=== PATIENT | female | born 2005 | race Caucasian/White ===

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

== ENCOUNTER 2024-01-16 14:57 | Outpatient (RCR) | payer OTHER, MEDICAID, SELFPAY ==
[2023-12-06 17:10] VITALS: BP 119/63; PULSE 107
[2023-12-21 16:32] VITALS: BP 118/70; PULSE 100
[2023-12-27 16:58] VITALS: BP 122/66; PULSE 107
[2024-01-03 10:38] VITALS: BP 117/70
[2024-01-10 16:45] VITALS: BP 121/72; PULSE 99
[2024-01-16 15:28] VITALS: BP 125/76; PULSE 109
== END 2024-03-04 08:20 | disposition home or self-care (01) ==
LOC: ANHOBOP 14:57
PROVIDERS: PCP Physician Assistant; Visit Provider Obstetrics & Gynecology
DX: O24.419 Gestational diabetes mellitus in pregnancy, unspecified control (principal); Z3A.32 32 weeks gestation of pregnancy; Z3A.34 34 weeks gestation of pregnancy; Z3A.35 35 weeks gestation of pregnancy; Z3A.36 36 weeks gestation of pregnancy; Z3A.37 37 weeks gestation of pregnancy; Z3A.38 38 weeks gestation of pregnancy
CPT/HCPCS: 59025

== ENCOUNTER 2024-01-18 16:11 | Outpatient (CLI) | payer OTHER, SELFPAY ==
[2024-01-18 16:41] LABS: Hematocrit 32.2 % (37.0-47.0); Hemoglobin 9.5 g/dL (12.0-15.0); Mean Corpuscular HGB Conc 29.5 g/dl (32-36); Mean Corpuscular Hemoglobin 21.2 pg (26-34); Mean Corpuscular Volume 71.9 fl (80-100); Mean Platelet Volume 10.8 fl (7.4-10.4); Platelet Count Result 212 k/mm3 (150-375); Red Blood Count 4.48 M/mm3 (4.2-5.4); Red Cell Distribution Width 17.8 % (11.5-14.5); White Blood Count 9.1 K/mm3 (4.5-10.0)
[2024-01-18 21:02] LABS: Rapid Plasma Reagin Non-Reactive (NonReactive)
== END 2024-01-18 16:12 | disposition home or self-care (01) ==
LOC: ANHLAB 16:13
PROVIDERS: PCP Physician Assistant; Visit Provider Obstetrics & Gynecology
DX: Z01.818 Encounter for other preprocedural examination (principal)
CPT/HCPCS: 36415; 85027; 86592; 86850; 86900; 86901

== ENCOUNTER 2024-01-19 10:02 | Inpatient (IN) | payer OTHER, MEDICAID, SELFPAY ==
[2024-01-19] VITALS (31 sets, daily range): BP systolic 82–125; BP diastolic 50–87; PULSE 76–129; RESP 16–20; TEMP 36.2–36.9; O2SAT 95–100; BMI 39.8
[2024-01-19] MEDS: ACETAMINOPHEN 500 MG TABLET 1000 MG PO (10:45)
--- NOTE | 2024-01-19 10:49 | P.PNAN_ITS ---
Anes - Initial Pre Proc Eval Procedure: Operation Date: 01/19/24 12:00 Proposed Procedures p Primary Section - Luis Cazares MD Date/Time: 01/19/24 10:49 Surgeon: Luis Cazares MD Pre Op Diagnosis: C Section Patient Data Age: 18 Gender: F Height: 1.6 m Weight: 102 kg Last Vital Signs Pulse 100 01/19/24 10:44 BP 121/72 01/19/24 10:44 Allergies Allergy/AdvReac Type Severity Reaction Status Date / Time No Known Allergies Allergy Verified 02/18/23 07:09 Home Medications Medication Instructions Recorded Confirmed Type famotidine 20 mg tablet 20 mg PO DAILY 10/18/23 12/13/23 History vit no.95-ferrous 1 tablet PO DAILY 10/18/23 12/13/23 History fumarate 28 mg-folic acid 800 mcg tablet () escitalopram oxalate 10 mg tablet 10 mg PO DAILY 12/06/23 12/13/23 History (Lexapro) Patient hx anesthesia problems: none Family hx anesthesia problems: none Results Review: All pre-operative results and documents have been reviewed as part of the pre- operative evaluation. [facility] Past Medical History Medical History (Updated 01/19/24 @ 10:59 by Mark Dorantes DO) GDM (gestational diabetes mellitus) Surgical History Surgical History No pertinent past surgical history Family History Family History (Updated 01/15/24 @ 14:43 by Boby Barragan RN) Mother Hypertension Father Type 2 diabetes mellitus Grandparent Type 2 diabetes mellitus Social History Social History Smoking status: Never smoker Substance use: former Spiritual care concerns: No Anes - Eval Final PreProcedure Day of Procedure 01/19/24 10:49 Patient weight: obese Heart: regular rate and rhythm Lungs: clear to auscultation and normal air movement Airway: Mallampati scale class II Neurological: alert and oriented Last oral intake: >/= 8 hours ASA classification: III Emergent: no Anesthetic plan: proceed Anesthesia type and monitoring: regional spinal and standard monitoring Results Review: All pre-operative results and documents have been reviewed as part of the pre- operative evaluation. Informed Consent: The patient's anesthetic plan and its attendant risks and benefits were discussed with the patient/family/POA. Questions were solicited and answers provided to the satisfaction of the patient/family/POA.
[2024-01-19] MEDS: LACTATED RINGERS 1,000 ML 125 ML IV CONT ×2 (10:57→11:53)
[2024-01-19 11:16] LABS: Glucose Point of Care 85 mg/dl (65-105)
--- NOTE | 2024-01-19 11:42 | PM.IMHP ---
H&P: HPI History of Present Illness Date/Time: 01/19/24 11:42 Chief Complaint: Here for c section. Narrative: 18 y/o at 39 weeks with A2DM, EFW >4500 grams, here for elective . Review of Systems Review of Systems: All systems reviewed & are unremarkable except as noted in HPI and below PMFSH Past Medical History Medical History (Updated 01/19/24 @ 11:44 by Luis Cazares MD) GDM (gestational diabetes mellitus) Surgical History Surgical History No pertinent past surgical history Family History Family History Mother Hypertension Father Type 2 diabetes mellitus Grandparent Type 2 diabetes mellitus Social History Social History Smoking status: Never smoker Second hand tobacco smoke exposure: No Substance use: former Do You Feel Safe in your Home?: Yes Lack of Transportation: No Lack of Food: Never True Current Housing: I Have Housing Concerned About Future Housing: No Difficulty Paying Gas/Electric Bills: No Difficulty Paying for Meds: No Currently Unemployed: No Education: High School Diploma/GED Difficulty w/ Childcare or Family Care: No Spiritual care concerns: No Meds Home Medications and Allergies Home Medications Medication Instructions Recorded Confirmed Type famotidine 20 mg tablet 20 mg PO DAILY 10/18/23 12/13/23 History vit no.95-ferrous 1 tablet PO DAILY 10/18/23 12/13/23 History fumarate 28 mg-folic acid 800 mcg tablet () escitalopram oxalate 10 mg tablet 10 mg PO DAILY 12/06/23 12/13/23 History (Lexapro) Allergies Allergy/AdvReac Type Severity Reaction Status Date / Time No Known Allergies Allergy Verified 02/18/23 07:09 Vital Signs Vital Signs - 24 hr 01/19/24 10:44 01/19/24 11:02 Pulse Rate 100 Blood Pressure 121/72 Oxygen Delivery Room Air Exam Const: Orientation/consciousness: patient oriented x3 Other: Well-developed, well-nourished female in no acute distress. Neck: Thyroid: thyroid normal Lymphatic: no lymphadenopathy noted (in neck, axilla or inguinal nodes) Resp: Effort & Inspection: normal respiratory effort Auscultation: clear to auscultation bilaterally Cardio: Rate: regular rate Rhythm: regular rhythm Heart sounds: S1 normal heart sound present and S2 normal heart sound present GI: Other: ABD: Soft, nontender, nondistended, gravid. FH 42 cm. FHR 150 bpm. No guarding or rebound tenderness. No hepatosplenomegaly. : General: Yes no CVA tenderness Other: Cervix closed, thick Back/Spine/Pelvis: Back: no CVA tenderness Skin: General skin exam: normal color and no rashes or lesions noted Neuro: General: patient oriented x3 Extrem: Other: Extremities: nontender with no edema Psych: Mental Status: mental status grossly normal Affect: normal affect Assessment and Plan Assessment and plan (1) Term : Code(s): Z34.90 - Encounter for supervision of normal , unspecified, unspecified trimester Status: Acute Assessment and Plan: A: IUP at 39 weeks with A2DM and suspected macrosomia. P: Offered primary due to increased risk of injury. She understands risks of surgery to include risks of anesthesia, risks of pain, infection, bleeding, blood products, thromboembolic phenomena and damage to adjacent structures such as bowel, bladder, ureters, blood vessels and nerves. She understands all these risks and elects to proceed with surgery. (2) GDM (gestational diabetes mellitus): Code(s): O24.419 - Gestational diabetes mellitus in , unspecified control Status: Acute (3) Macrosomia of fetus affecting management of mother: Code(s): O36.60X0 - Maternal care for excessive growth, unspecified t
--- NOTE | 2024-01-19 11:52 | WPDHPUPDATE1 ---
History and Physical Update Update Date/Time: 01/19/24 11:52 History and Physical has been reviewed, including an updated exam of the patient. There are NO changes in the patient's condition. Risks, benefits, and alternatives have been discussed and questions answered. Patient agrees to proceed with procedure.
[2024-01-19] MEDS: ONDANSETRON INJ 4 MG/2 ML VIAL IV PUSH (11:53)
[2024-01-19] MEDS: ceFAZolin 2 GM/D5W 50 ML 2 GM/50 ML BAG IVPB (12:05)
--- NOTE | 2024-01-19 13:11 | W.PM.OBCSD ---
OB - Delivery Note Procedure Delivery date: 01/19/24 Pre-op diagnosis: Diabetes Mellitus and Macrosomia Post-op Diagnosis: Same Induction method: None Delivery monitor: External FHT and External Uterine Procedure Performed: Primary Surgeon: Luis Cazares MD Anesthesia type: Spinal Description of Procedure/Findings: Findings: Normal-appearing uterus, tubes and ovaries. Techniques: The patient was taken to the operating room where she was prepared and draped in the usual sterile fashion in dorsal supine position with a leftward tilt. She received cefazolin preoperatively. Spinal anesthesia was found to be adequate. A Pfannenstiel skin incision was made and carried through to the underlying layer of the fascia. The fascia was incised in the midline and the incision was extended laterally. The fascia was dissected free of the underlying rectus muscles. The rectus muscles were in the midline. The peritoneum was identified, tented up and entered sharply. The peritoneal incision was extended superiorly and inferiorly with good visualization of the bladder. The bladder blade was placed. The vesicouterine peritoneum was identified, tented up and entered sharply. The incision was extended laterally and the bladder flap was developed. The bladder blade was replaced. The uterus was then incised sharply in a transverse fashion along the lower uterine segment. The incision was extended laterally. The infant's head was delivered atraumatically to the sterile field, followed by the body. The nose and mouth were bulb suctioned. After a delay, the cord was clamped and cut. The was handed off the field. Cord blood was collected. The placenta was removed manually and was passed off the field. The uterus was exteriorized and cleared of all clots and debris. The uterine incision was reapproximated using 0 Monocryl in a running, locked fashion. A second, imbricating layer of the same suture was run. Excellent hemostasis resulted as did excellent reapproximation of the normal anatomy. The uterus was returned the abdomen. The pelvis was irrigated copiously with warmed normal saline. Rigorous hemostasis was assured. The fascial layer was reapproximated using 0 Vicryl in a running fashion. The skin was closed with a running, subcuticular stitch of 4 0 Vicryl. Dermaflex was applied externally. Sponge, lap, needle and instrument counts were correct. The patient was taken to the recovery room in stable condition. The infant went to the nursery in stable condition. I was present and scrubbed the entire procedure. Specimen: Yes (placenta, cord blood) Estimated Blood Loss: 1,030 Drains: Yes (hood) Packing: No Pathology: Yes (placenta) Complications: None Condition: Stable Disposition: PACU Baby Date of : 01/19/24 Time of : 12:31 Weeks of gestation at delivery: 39 gender: Male Weight (pounds): 10 Weight (ounces): 1 presentation: vertex Placenta delivery description: Manual Removal and Normal Configuration Cord Vessel Description: 3 Vessels and Delayed Cord Clamping score one minute: 8 score five minutes: 9
--- NOTE | 2024-01-19 13:14 | PM.OBDSVD ---
DS: Admitting Diagnosis Discharge Date 01/19/24 Admitting Diagnosis IUP at 39 weeks Suspected macrosomia DS: Discharge Diagnosis Discharge Diagnosis (1) delivery delivered: Code(s): O82 - Encounter for delivery without indication Status: Acute OB - DS: Summary OB Procedures : None OB Procedures Intrapartum: OB Procedures: : None Peripartum Data Procedures: Procedures Operation Date: 01/19/24 12:00 <No data on this case meets the specified criteria> Time Spent with Patient Time attestation: Total time spent providing and/or coordinating discharge services: DS: Data Data Completed and Pending Labs on day of discharge: Labs from last 24 hours 01/19/24 11:08 POC Capillary Glucose 85 Discharge Plan Discharge Attending physician on discharge: Luis Cazares Consulting providers: Mark Dorantes; Mariola Way Discharging Clinician: Monisha Umanzor Anticipated Discharge Date/Time: 01/21/24 08:41 Patient Disposition: Home, Self-Care Activity: may shower, may drive after 2 weeks and pelvic rest Diet: regular Wound Care Instructions: incision open to air Discharge Instructions: Education: Mom and Baby Guide Given to: Mother Follow-Up: Call your delivering provider's office for an appointment to be seen in: call for an appointment Mom and baby should come to the [facility] for the follow-up appointment. Appointment Date/Time: January 23, 2024 at 11:00 am What to expect at your follow-up visit: Physical Assessment Call [phone] if you are unable to keep your appointment time. BREAST CARE: * Wear a snug supportive bra. * For engorgement discomfort: Breast Feeding: * Apply warm moist washcloths * Express milk as needed to relieve engorgement * Wear loose clothing Bottle Feeding: * May apply ice packs * For sore nipples: * Identify correct latch-on * Apply warm moist washcloths before and after nursing * Air dry nipples after nursing * May apply Lansinoh cream to nipples ABDOMINAL INCISION: (if applicable) * Allow incision to air dry * Do NOT use lotions for powders on your incision * When showering, allow soap and water to run over the incision, but do not wash incision EPISIOTOMY/PERINEAL CARE: * Until bleeding stops, use your nathan bottle after urinating * Change your pad frequently throughout the day * You may take sitz baths several times a day (fill your bathtub with warm water and soak for 20 minutes.) Do NOT bathe in the water * No tub baths until seen by your physician - You may shower ACTIVITY: * Rest as much as possible. * Do not exercise or lift anything heavier than your baby (such as laundry or other children.) * Avoid stairs or driving as much as possible. * Do not put anything into the vagina. No douching, tampons, or sexual activity until seen by physician. NOTIFY PHYSICIAN IF YOU HAVE ANY QUESTIONS OR IF ANY OF THE FOLLOWING SYMPTOMS OCCUR: * If your episiotomy or incision becomes red, swollen, or more painful than what you have experienced in the hospital. * If your vaginal bleeding becomes foul smelling. * If your vaginal bleeding becomes more heavy than a period or if your bleeding changes from pink to bright red. However, you may pass an occasional walnut-sized clot once or twice for the first week . * If you experience a sharp, shooting pain in you calves. * If you discover a hard, reddened area on your breast or if you experience flu-like symptoms. DIET: * Eat regular, well-balanced meals. * Drink plenty of fluids daily. If , drink to thirst. Patient Instructions: Antibiotic Form Stand Alone Forms: General Discharge Information Follow-up/Referrals: Luis Cazares MD [Physician] - Call for Appointment Discharge Me
[2024-01-19] MEDS: OXYTOCIN 30 UNITS/NS 500 ML 30 UNITS/500 ML BAG 125 UNITS IV CONT (15:36)
--- NOTE | 2024-01-19 15:53 | PC.NURSE ---
Patient transferred to post room #280 per stretcher from labor and delivery. Support person present. Oriented to unit, room, information board, rooming in, admission packet and security measures. Patient verbalizes understanding.
[2024-01-19] MEDS: SIMETHICONE 80 MG TAB.CHEW PO (16:53)
[2024-01-19] MEDS: DOCUSATE SODIUM 100 MG CAPSULE PO (16:53)
[2024-01-19] MEDS: KETOROLAC 15 MG/ML VIAL (*BKC) IV PUSH ×2 (16:54→23:39)
[2024-01-19] MEDS: diphenhydrAMINE HCl INJ 50 MG/ML VIAL 25 MG IV PUSH (16:54)
--- NOTE | 2024-01-19 17:35 | PC.NURSE ---
1700 Introductions were made, then consulted with patient to assess needs related to . Mother led the conversation with her?plans to feed?her and the?experience so far. Encouraged understanding of the benefits of skin to skin (demonstrating unwrapping infant and placing upright on her chest), stimulating with massage touch, changing positions to encourage wakefulness, how to watch for early feeding cues, responsive feeding, feeding on demand (aiming for 8-12 times in 24 hours, about every 2-3 hours), milk production, building/maintaining a milk supply, duration of feeding, signs of adequate intake/output and how to record on the feeding sheet. Mother works well with her with encouragement and education. Reviewed positioning and ear, shoulder, hip alignment, supporting the breast to facilitate a deep latch, asymmetrical latch (off-center), leading with the chin with a big, open, wide gape and body close to mother. Education given to the mother of how to visualize the suckling (with good rocking jaw motion), swallows (dropping of the lower jaw) and how to listen for drinking at the breast (the ka sound). Reviewed comfort measures of healing with a warm, wet washcloth to rinse breast, then leave open to air-dry, good handwashing when or touching the breast/nipples to prevent infection. Mother voiced understanding of skin to skin, stimulating with massage touch, responsive feedings, hand expressed colostrum, talking to to encourage if it has been 2 -2.5 hours since the start of the last , to call if does not latch, or if there is discomfort with . Resources used for education were facilitated with the visual educational handouts/ tool/mom and baby guide, Inpatient resources provided with business card, feeding sheet, name written on the communication board, and the mom/baby guide. Parents voiced understanding of information, demonstrated learning and will call with next attempt to feed once baby wakes from nap or if there is a request for assistance. Reported to the Primary RN.
[2024-01-19] MEDS: ACETAMINOPHEN 325 MG TABLET 650 MG PO (18:30)
[2024-01-20] MEDS: ACETAMINOPHEN 325 MG TABLET 650 MG PO ×4 (02:43→22:33)
[2024-01-20 04:00] VITALS: BP 98/61; PULSE 99; RESP 18; TEMP 37; O2SAT 100
[2024-01-20 05:19] LABS: Basophils Absolute Auto 0.1 K/mm3 (0.0-0.1); Basophils Percent Auto 0.5 % (0.2-1.2); Eosinophils Percent Auto 0.3 % (0-4.4); Hematocrit 25.8 % (37.0-47.0); Hemoglobin 7.8 g/dL (12.0-15.0); Immature Granulocyte Absolute 0.03 K/mm3 (0.00-0.031); Immature Granulocyte Percent A 0.3 % (0-0.5); Lymphocytes Absolute Auto 2.06 K/mm3 (0.9-3.2); Lymphocytes Percent Auto 19.6 % (18.3-44.2); Mean Corpuscular HGB Conc 30.2 g/dl (32-36); Mean Corpuscular Hemoglobin 21.7 pg (26-34); Mean Corpuscular Volume 71.9 fl (80-100); Mean Platelet Volume 11.8 fl (7.4-10.4); Monocytes Absolute Auto 0.9 K/mm3 (0.1-0.6); Monocytes Percent Auto 8.3 % (2.6-8.5); Neutrophils Absolute Auto 7.5 K/mm3 (1.3-6.7); Platelet Count Result 197 k/mm3 (150-375); Red Blood Count 3.59 M/mm3 (4.2-5.4); Red Cell Distribution Width 17.5 % (11.5-14.5); White Blood Count 10.5 K/mm3 (4.5-10.0)
[2024-01-20 05:38] LABS: Anisocytosis 1+; Hypochromasia 1+; Ovalocytes 2+; Platelet Estimate Adequate (Adequate); Schistocytes None Seen
[2024-01-20] MEDS: KETOROLAC 15 MG/ML VIAL (*BKC) IV PUSH (05:39)
--- NOTE | 2024-01-20 06:51 | P.PNOB_ITS ---
OB - PN: Subj Subjective Date/time seen: 01/20/24 06:51 Patient comments: no complaints and pain well controlled baby status: doing well OB - PN: Obj Data Labs 01/20/24 03:41 Labs: Laboratory Results - last 24 hr 01/19/24 01/20/24 11:08 03:41 WBC 10.5 H RBC 3.59 L Hgb 7.8 L Hct 25.8 L MCV 71.9 L MCH 21.7 L MCHC 30.2 L RDW 17.5 H Plt Count 197 MPV 11.8 H Immature Gran % (Auto) 0.3 Neut % (Auto) 71.0 Lymph % (Auto) 19.6 [place] % (Auto) 8.3 Eos % (Auto) 0.3 Baso % (Auto) 0.5 Lymph # (Auto) 2.06 [place] # (Auto) 0.9 H Eos # (Auto) 0.0 Baso # (Auto) 0.1 Abs Immat Gran (auto) 0.03 Absolute Neuts (auto) 7.5 H Absolute Nucleated RBC 0.000 Nucleated RBC % 0.0 Platelet Estimate Adequate Hypochromasia 1+ Anisocytosis 1+ Ovalocytes 2+ Schistocytes None seen POC Capillary Glucose 85 OB - PN A/P Plan day: 1 Plan: routine care Time Spent With Patient Time: Total time spent is greater than 50% in coordination of care (as documented) at patient's floor/unit and/or counseling patient: Exam Narrative: inc c/d/i : Bimanual exam- vagina & uterus: other (Uterus firm, nt @U)
[2024-01-20] MEDS: POLYSACCHARIDE IRON COMPLEX 150 MG CAPSULE PO ×2 (07:37→16:31)
[2024-01-20] MEDS: SIMETHICONE 80 MG TAB.CHEW PO ×3 (07:37→16:31)
[2024-01-20] MEDS: DOCUSATE SODIUM 100 MG CAPSULE PO ×2 (07:38→16:31)
[2024-01-20] MEDS: ESCITALOPRAM OXALATE 10 MG TABLET PO (07:38)
[2024-01-20] MEDS: MULTIVIT/MIN/PREN/FOL AC/IRON TABLET 1 TAB PO (07:39)
[2024-01-20 07:40] VITALS: BP 121/68; PULSE 93; RESP 16; TEMP 36.9; O2SAT 99
--- NOTE | 2024-01-20 09:46 | WPDANLDPN2 ---
Anes-Prog Note L&D Date/Time: 01/20/24 09:46 Comfortable throughout: section Neuraxial method: spinal Epidural/Spinal procedure site: clean & non-tender Neuro status: Neuro function grossly intact. Cardiovascular status: normal Respiratory status: normal Airway patency: baseline Mental status: baseline Post-Op hydration status: normal Vital Signs: Last Vital Signs Temp 36.9 C 01/20/24 07:40 Pulse 93 01/20/24 07:40 Resp 16 01/20/24 07:40 BP 121/68 01/20/24 07:40 Pulse Ox 99 01/20/24 07:40 O2 Del Method Room Air 01/20/24 07:40 Pain score (VAS): 0 I/O: Intake & Output 01/19/24 01/20/24 01/20/24 23:59 07:59 15:59 Intake Total 250 Balance 250 Post-procedural complaints: none Patient feedback: Patient satisfied with anesthetic care.
--- NOTE | 2024-01-20 09:47 | WPDANLDNPN2 ---
Anes-Prog Note L&D-Neuraxial Date/Time: 01/20/24 09:47 Neuraxial medications: intrathecal PF morphine Opiod-related complaints: none Patient feedback: Patient satisfied with post-operative pain management.
[2024-01-20] MEDS: IBUPROFEN 600 MG TABLET PO ×2 (12:15→18:19)
[2024-01-20 20:00] VITALS: BP 125/61; PULSE 88; RESP 18; TEMP 36.9; O2SAT 99
[2024-01-21] MEDS: IBUPROFEN 600 MG TABLET PO ×2 (00:19→08:12)
[2024-01-21] MEDS: HYDROcodone/acetaminophen (*CRX) 10-325 MG TABLET 1 TAB PO (02:11)
[2024-01-21] MEDS: ACETAMINOPHEN 325 MG TABLET 650 MG PO (04:29)
[2024-01-21 07:44] VITALS: BP 131/83; PULSE 96; RESP 20; TEMP 36.7; O2SAT 99
[2024-01-21] MEDS: MULTIVIT/MIN/PREN/FOL AC/IRON TABLET 1 TAB PO (08:11)
[2024-01-21] MEDS: ESCITALOPRAM OXALATE 10 MG TABLET PO (08:11)
[2024-01-21] MEDS: POLYSACCHARIDE IRON COMPLEX 150 MG CAPSULE PO (08:11)
[2024-01-21] MEDS: DOCUSATE SODIUM 100 MG CAPSULE PO (08:11)
[2024-01-21] MEDS: SIMETHICONE 80 MG TAB.CHEW PO (08:11)
--- NOTE | 2024-01-21 08:40 | PM.OBPNVD ---
OB - PN: Subj Subjective Date/time seen: 01/21/24 08:40 Patient comments: no complaints and pain well controlled baby status: doing well OB - PN: Obj Data Labs 01/20/24 03:41 OB - PN A/P Plan day: 2 Plan: routine care and discharge home Time Spent With Patient Time: Total time spent is greater than 50% in coordination of care (as documented) at patient's floor/unit and/or counseling patient: Exam Narrative: inc c/d/i : Bimanual exam- vagina & uterus: other (Uterus firm, nt @U)
[2024-01-23 11:39] VITALS: BP 123/84; PULSE 100; RESP 18; TEMP 37.1; O2SAT 100
== END 2024-01-21 11:11 | disposition home or self-care (01) | DRG 788 ==
LOC: ANHOB2 01-21 09:35 → ANHLDR 01-23 07:43 → ANHOB2 01-23 07:43
PROVIDERS: Admitting Provider Obstetrics & Gynecology; PCP Physician Assistant; Visit Provider Obstetrics & Gynecology Gynecology
PROC: 10D00Z1 Extraction of Products of Conception, Low, Open Approach (ICD-10-PCS; CPT 59514; principal; 2024-01-19 12:00)
DX: O24.429 Gestational diabetes mellitus in childbirth, unspecified control (principal); Z37.0 Single live birth; Z3A.38 38 weeks gestation of pregnancy; O36.63X0 Maternal care for excessive fetal growth, third trimester, not applicable or unspecified
CPT/HCPCS: 36415; 82948; 85025; 85027; 86592; 86850; 86900; 86901; 88307; A9270; J0690; J1200; J1885; J2274; J2371; J2405; J2590; J7120

== ENCOUNTER 2024-02-18 19:43 | Emergency (ER) | payer OTHER, SELFPAY ==
--- NOTE | ~2024-02-18 | CT_ITS ---
EXAMINATION: CT abdomen pelvis w con DATE: 02/18/2024 21:37 INDICATION: Upper abdominal pain. TECHNIQUE: Computed tomography (CT) of the abdomen and pelvis was performed with 100 mL Omnipaque 350 intravenous contrast. Automated exposure control and iterative reconstruction technique were employe d. The dose-length product was 780.62 mGy-cm. COMPARISON: CT abdomen and pelvis 02/18/2023 FINDINGS: The visualized portions of the lung bases demonstrate mild atelectasis. No pleural effusion . The heart size is normal. No pericardial effusion. The liver is normal. There is a gallstone in the gallbladder, which is normal in size. The spleen, pancreas, adrenal glands, and kidneys are normal. There are no dilated loops of bowel. The appendix is normal. There are no pathologically enlarged lym ph nodes. There is no free intraperitoneal fluid. There is mild thoracic and lumbar spondylosis. IMPRESSION: 1. Cholelithiasis. No evidence of acute cholecystitis. Reviewed, dictated and finalized at location E.
[2024-02-18 19:40] VITALS: BP 123/87; PULSE 96; RESP 22; TEMP 36.3; O2SAT 100
--- NOTE | 2024-02-18 19:51 | ED.ABDPAIN ---
HPI - Abdominal Pain General Chief Complaint: Abdominal Pain Stated Complaint: abd pain Time Seen by Provider: 02/18/24 19:44 History of Present Illness HPI narrative: Patient is a 18-year-old female who presents to the emergency department this evening complaining of mid epigastric/upper abdominal pain. Patient states that she has had similar pain in the past and believes that it is her gallbladder. Has never been diagnosed with gallstones or cholecystitis. Patient is 1 month , had her baby via . Admits to nausea and vomiting.. Patient admits that the pain does radiate to her back, EMS did administer 100 mcg intranasal fentanyl with some improvement of her pain. Patient denies any chest pain or shortness of breath, any fevers or chills at home, and denies any additional symptoms or concerns at this time. Related Data Home Medications Medication Instructions Recorded Confirmed famotidine 20 mg tablet 20 mg PO DAILY 10/18/23 12/13/23 vit no.95-ferrous 1 tablet PO DAILY 10/18/23 12/13/23 fumarate 28 mg-folic acid 800 mcg tablet () escitalopram oxalate 10 mg tablet 10 mg PO DAILY 12/06/23 12/13/23 (Lexapro) Allergies Allergy/AdvReac Type Severity Reaction Status Date / Time No Known Allergies Allergy Verified 02/18/24 20:00 Review of Systems Review of Systems: All systems are reviewed and are negative unless stated otherwise in the HPI. [facility] Past Medical History Medical History GDM (gestational diabetes mellitus) Surgical History Surgical History No pertinent past surgical history Family History Family History Mother Hypertension Father Type 2 diabetes mellitus Grandparent Type 2 diabetes mellitus Social History Social History Smoking status: Never smoker Second hand tobacco smoke exposure: No Substance use: former Do You Feel Safe in your Home?: Yes Lack of Transportation: No Lack of Food: Never True Current Housing: I Have Housing Concerned About Future Housing: No Difficulty Paying Gas/Electric Bills: No Difficulty Paying for Meds: No Currently Unemployed: No Education: High School Diploma/GED Difficulty w/ Childcare or Family Care: No Spiritual care concerns: No Exam Narrative: General: Alert, awake, afebrile, in no acute distress. HEENT: PERRL, no rhinorrhea, no post nasal drip, oropharynx clear. Cardiovascular: Regular rate and rhythm, no murmurs, rubs or gallops, no peripheral edema. Respiratory: Clear to auscultation bilaterally, no tachypnea, no wheezing, no rhonchi, no rubs, no respiratory distress. Abdomen: Soft, nontender, nondistended, no rebound, no guarding, no peritoneal signs. Musculoskeletal: No joint swelling or deformity, normal muscle tone. Skin: No rashes or petechia, no signs of infection. Neurological: Alert and oriented to person, place, and time. Follows all commands. No focal deficits, speech is clear and fluent. Course Vital Signs Vital signs: Vital Signs Temperature 97.4 F L 02/18/24 19:40 Pulse Rate 96 02/18/24 19:40 Respiratory Rate 22 H 02/18/24 19:40 Blood Pressure 123/87 02/18/24 19:40 Pulse Oximetry 100 02/18/24 19:40 Oxygen Delivery Room Air 02/18/24 19:40 Temperature 97.4 F L 02/18/24 19:40 Pulse Rate 106 H 02/18/24 20:16 Respiratory Rate 19 02/18/24 20:16 Blood Pressure 123/60 02/18/24 20:16 Pulse Oximetry 97 02/18/24 20:16 Oxygen Delivery Room Air 02/18/24 19:40 MDM - Abdominal Pain MDM Narrative Medical decision making narrative: The patient was evaluated by myself in the emergency department. History is obtained from patient who is an independent historian and physical exam was performed. External medi
[2024-02-18 20:01] VITALS: BP 133/78; PULSE 98; RESP 14; O2SAT 100
[2024-02-18 20:16] VITALS: BP 123/60; PULSE 106; RESP 19; O2SAT 97
[2024-02-18 20:30] LABS: Basophils Percent Auto 0.4 % (0.2-1.2); Eosinophils Absolute Auto 0.1 K/mm3 (0-0.3); Eosinophils Percent Auto 1.3 % (0-4.4); Hematocrit 34.2 % (37.0-47.0); Hemoglobin 10.1 g/dL (12.0-15.0); Immature Granulocyte Absolute 0.03 K/mm3 (0.00-0.031); Immature Granulocyte Percent A 0.3 % (0-0.5); Lymphocytes Absolute Auto 2.78 K/mm3 (0.9-3.2); Lymphocytes Percent Auto 30.7 % (18.3-44.2); Mean Corpuscular HGB Conc 29.5 g/dl (32-36); Mean Corpuscular Hemoglobin 20.7 pg (26-34); Mean Corpuscular Volume 70.2 fl (80-100); Mean Platelet Volume 10.6 fl (7.4-10.4); Monocytes Absolute Auto 0.6 K/mm3 (0.1-0.6); Monocytes Percent Auto 6.1 % (2.6-8.5); Neutrophils Absolute Auto 5.5 K/mm3 (1.3-6.7); Neutrophils Percent Auto 61.2 % (45.5-73.1); Platelet Count Result 336 k/mm3 (150-375); Red Blood Count 4.87 M/mm3 (4.2-5.4); Red Cell Distribution Width 18.6 % (11.5-14.5); White Blood Count 9.1 K/mm3 (4.5-10.0)
[2024-02-18 20:42] LABS: Hypochromasia 1+; Platelet Estimate Adequate (Adequate)
[2024-02-18 20:43] LABS: Anisocytosis 1+; Microcytosis 1+ (NORMAL); Ovalocytes 1+; Schistocytes None Seen
[2024-02-18 20:45] LABS: Alanine Aminotransferase 25 U/L (6-35); Albumin Level 4.5 g/dL (3.7-5.6); Alkaline Phosphatase 122 U/L (45-116); Anion Gap 14 mmol/L (4-12); Aspartate Amino Transferase 68 U/L (14-36); Bilirubin,Total 0.5 mg/dL (0.2-1.3); Blood Urea Nitrogen 14 mg/dL (8-21); Calcium 9.1 mg/dL (8.9-10.7); Carbon Dioxide 19 mmol/L (22-30); Chloride 108 mmol/L (98-107); Estimated CRCL calculation 151 ml/min; Estimated Glomerular Filt Rate > 60; Glucose 102 mg/dL (65-110); Lactic Acid Reflex 2.6 mmol/L (0.7-2.0); Lipase 196 U/L (23-300); Potassium 3.8 mmol/L (3.4-5.0); Sodium 141 mmol/L (134-143)
[2024-02-18 20:50] LABS: SPREG INTERNAL CONTROL Positive; Serum Qual hCG Negative
[2024-02-18 21:01] VITALS: BP 127/77; PULSE 97; RESP 36; O2SAT 97
[2024-02-18] MEDS: SODIUM CHLORIDE 0.9% IV 1,000 ML 999 ML IV CONT (21:58)
[2024-02-18 22:30] VITALS: BP 121/64; PULSE 94; RESP 21; O2SAT 98
[2024-02-18] MEDS: ONDANSETRON INJ 4 MG/2 ML VIAL IV PUSH (22:41)
--- NOTE | 2024-02-18 22:51 | PC.NURSE ---
Discussed with pt to pump n dump x 48 hours d/t CT contrast and IN fentanyl. Pt agreeable with plan.
[2024-02-18 23:01] VITALS: BP 125/84; PULSE 92; RESP 16; O2SAT 99
[2024-02-18 23:28] LABS: Reflex Lactic Acid Yes or No Add Lactic
--- NOTE | 2024-02-23 20:34 | PC.NURSE ---
Addendum entered by Amanda Mccabe RN 02/26/24 12:14: Discharge time was at 2312 for an end time. Original Note: LATE ENTRY This note is being entered to document information to the patient's record. The following information was omitted on [02/18/24], by [PHAM Dsouza]. Normal saline bolus at rate of 999mls/ hour were discontinued upon discharged.
== END 2024-02-18 23:13 | disposition home or self-care (01) ==
PROVIDERS: Emergency Provider Emergency Medicine; PCP Physician Assistant
DX: K80.20 Calculus of gallbladder without cholecystitis without obstruction (principal)
CPT/HCPCS: 36415; 74177; 80053; 82248; 83605; 83690; 84703; 85025; 96361; 96374; 99284; J2405; J7030; Q9967

== ENCOUNTER 2024-09-15 16:48 | Emergency (ER) | payer OTHER, SELFPAY ==
[2024-09-15 16:48] VITALS: BP 128/83; PULSE 88; RESP 16; TEMP 36.4; O2SAT 100
--- NOTE | 2024-09-15 16:57 | ED.FEMALEGU ---
HPI - Female Genitourinary General Chief complaint: Vaginal Bleeding Stated complaint: vaginal bleeding Time Seen by Provider: 09/15/24 16:56 Source: patient Mode of arrival: ambulatory Limitations: no limitations History of Present Illness HPI Narrative: 19 years old white female drove herself to the emergency room complaining of heavy menstrual. Over the last 3 days. Patient is post 8 months ago, patient is 3, para 1, 2, history of heavy menstrual cycles for years. Had history of anemia, she denies any pain, lightheadedness, dizziness, headache, fever, chills. patient is telling me that last menstrual period was 1 months ago and was considered the 1st minutes for cycle after having the BP 8 months ago. And 3 days ago started having another. Which consider the 2nd menstrual cycle after having the baby 8 months ago Related Data Home Medications ?Medication ?Instructions ?Recorded ?Confirmed ?Last Taken ?Type No Home Medications 09/15/24 09/15/24 Unknown History Allergies Allergy/AdvReac Type Severity Reaction Status Date / Time No Known Allergies Allergy Verified 09/15/24 16:55 Review of Systems Review of Systems: All systems reviewed & are unremarkable except as noted in HPI and below PMFSH Past Medical History Medical History GDM (gestational diabetes mellitus) Surgical History Surgical History No pertinent past surgical history Family History Family History Mother Hypertension Father Type 2 diabetes mellitus Grandparent Type 2 diabetes mellitus Social History Social History Smoking status: Never smoker Second hand tobacco smoke exposure: No Substance use: former Do You Feel Safe in your Home?: Yes Lack of Transportation: No Lack of Food: Never True Current Housing: I Have Housing Concerned About Future Housing: No Difficulty Paying Gas/Electric Bills: No Difficulty Paying for Meds: No Currently Unemployed: No Education: High School Diploma/GED Difficulty w/ Childcare or Family Care: No Spiritual care concerns: No Exam Narrative: General appearance: Well-developed, well-nourished Skin: Normal color Head: Normocephalic, nontraumatic Eyes: Clear conjunctiva ENT: Oropharynx normal, ears normal, nose normal Neck: Supple, nontender Chest and respiratory: Airway patent, no respiratory distress, no accessory muscle use Heart: Regular rate/rhythm Abdomen: Soft, nontender, no organomegaly, quiet bowel sounds Vascular: Normal peripheral pulses, normal capillary refill. Musculoskeletal: Normal range of motion, nontender back Neurologic: Alert and oriented ?3, FUEL RETROFITTING TECHNICIAN is normal as tested, no gross motor deficit Course Vital Signs Vital signs: Vital Signs Temperature 36.4 C 09/15/24 16:48 Pulse Rate 88 09/15/24 16:48 Respiratory Rate 16 09/15/24 16:48 Blood Pressure 128/83 09/15/24 16:48 Pulse Oximetry 100 09/15/24 16:48 Oxygen Delivery Room Air 09/15/24 16:48 Temperature 36.9 C 09/15/24 18:12 Pulse Rate 85 09/15/24 18:12 Respiratory Rate 16 09/15/24 18:12 Blood Pressure 129/74 09/15/24 18:12 Pulse Oximetry 98 09/15/24 18:12 Oxygen Delivery Room Air 09/15/24 18:12 MDM - Female Genitourinary MDM Narrative Medical decision making narrative: patient presents with 2nd Ministrual cycle, heavy, after having a baby 8 months ago. the bleeding started 3 days ago. Vital signs are stable Physical examination showed active vaginal bleeding, no blood clots, to Leach swab was enough to dry the whole vaginal pouch Differential diagnosis menorrhagia, anemia, , miscarriage, Blood workup today includes CBC, CMP showed hemoglobin of 10.7 which is better compared to the previous reading since January 2024. Patient denies any lightheadedness or dizziness, heart rate within normal limit, blood pressure within normal limit, Diagnosis is menorrhagia, patient to follow-up with OBGYN. The pt was discharged to home.the pt,s condition upon discharge was fair,education was provided to the pt in reference to the final impression,discharge study results,treatment,prognosis and need for follow up . Differential Diagnosis Differential diagnosis: Likely other (As above) Medical Records Attestation: I reviewed the patient's medical records. Lab Data Attestation: I reviewed the patient's lab results. 09/15/24 17:30 09/15/24 17:30 Labs: Lab Results 09/15/24 Range/Units 17:30 WBC 6.0 (4.8-10.8) K/mm3 RBC 4.76 (4.20-5.40) M/mm3 Hgb 10.7 L (12.0-15.0) g/dL Hct 34.1 L (35.0-49.0) % MCV 71.6 L (78.0-102.0) fL MCH 22.5 L (27.0-31.0) pg MCHC 31.4 L (32-36) g/dL RDW 18.3 H (11.6-14.4) % Plt Count 248 (150-420) K/mm3 MPV 11.0 (9.2-11.8) fl Sodium 140 (136-145) mmol/L Potassium 4.6 (3.5-5.1) mmol/L Chloride 104 (98-108) mmol/L Carbon Dioxide 25 (21-32) mmol/L Anion Gap 11 (4-12) mmol/L BUN 9 (7-18) mg/dL Creatinine 0.68 (0.55-1.02) mg/dL Estim Creat Clear Calc 128 ml/min Estimated GFR > 60 (59 - ) Glucose 98 (70-99) mg/dL Calculated Osmolality 288 (285-295) mOsm/kg Calcium 9.0 (8.5-10.1) mg/dL Total Bilirubin 0.2 (0.00-1.00) mg/dL AST 12 L (15-37) U/L ALT 26 (14-59) U/L Alkaline Phosphatase 84 (46-116) U/L Total Protein 7.1 (6.4-8.2) g/dL Albumin 3.9 (3.4-5.0) g/dL Serum HCG, Qual Negative Critical Care Time Critical Care Time Critical Care Time: No Discharge Plan Discharge Clinical Impression: Menometrorrhagia Patient Disposition: Home, Self-Care Condition: Stable Instructions: Menorrhagia (ED) Additional Instructions: Return if symptoms are worsening , call your OBGYN for appointment, take Tylenol, ibuprofen as as needed for aches and pain, continue home medications. Patient Language: Portuguese Prescriptions: No Action No Home Medications Follow-up/Referrals: Mai,GINETTE Osorio [Primary Care Provider] - Luis Cazares MD [Physician] - 09/15/24 6:08 pm
[2024-09-15 17:58] LABS: Hematocrit 34.1 % (35.0-49.0); Hemoglobin 10.7 g/dL (12.0-15.0); Mean Corpuscular HGB Conc 31.4 g/dL (32-36); Mean Corpuscular Hemoglobin 22.5 pg (27.0-31.0); Mean Corpuscular Volume 71.6 fL (78.0-102.0); Platelet Count Result 248 K/mm3 (150-420); Red Blood Count 4.76 M/mm3 (4.20-5.40); Red Cell Distribution Width 18.3 % (11.6-14.4)
[2024-09-15 18:00] LABS: SPREG INTERNAL CONTROL Positive; Serum Qual hCG Negative
[2024-09-15 18:04] LABS: Alanine Aminotransferase 26 U/L (14-59); Albumin Level 3.9 g/dL (3.4-5.0); Alkaline Phosphatase 84 U/L (46-116); Anion Gap 11 mmol/L (4-12); Aspartate Amino Transferase 12 U/L (15-37); Bilirubin,Total 0.2 mg/dL (0.00-1.00); Blood Urea Nitrogen 9 mg/dL (7-18); Carbon Dioxide 25 mmol/L (21-32); Chloride 104 mmol/L (98-108); Estimated CRCL calculation 128 ml/min; Estimated Glomerular Filt Rate > 60; Glucose 98 mg/dL (70-99); Osmolality Calculated 288 mOsm/kg (285-295); Potassium 4.6 mmol/L (3.5-5.1); Sodium 140 mmol/L (136-145); Total Protein 7.1 g/dL (6.4-8.2)
[2024-09-15 18:12] VITALS: BP 129/74; PULSE 85; RESP 16; TEMP 36.9; O2SAT 98
--- OUTSIDE RECORDS SUMMARY | 2024-09-22 20:28 | XMS_ITS | Encounter Summary ---
Author Organization [facility] Address [address] [place] [address] Phone Care Team Providers Care Manager Lighting Name Role Phone Bianka Oneill Primary Care Provider + Reason for Visit * Auth/Cert (Routine) Specialty Diagnoses / Procedures Referred By Contac t Referred To Contact Referral ID Status Reason Start Date Expiration Date Visits Re quested Visits Authorized [id number] 1 1 Encounter Details Date Type Department Care Team ([facility] Contact Info) Description 07/06/2023 9:00 AM CDT Telemedicine [facility] [address] [place] [address] Che Dickerson, BALANCE ASSEMBLER [address] [place] [address] Anxiety (Primary Dx) Discharge Disposition: Discharged to home or Selfcare Social History Tobacco Use Types Packs/Day Years Used Date Smoking Tobacco: Never Smokeless Tobacco: Never Alcohol Use Standard Drinks/Week Comments Never 0 (1 standard drink = 0.6 oz pur e alcohol) PHQ-2 Answer Date Recorded Total Score - Questions 1-9 0 05/19 Education Answer Date Recorded What is the highest level of school you have completed or the highest degree you have received? 12th grade 03/01/2023 Sexually Active Control Partners Comments Not Currently Implant Male Comments Yes Sex and Gender Information Value Date Recorded Sex Assigned at Not on file Legal Sex Female 8:55 PM CDT Gender Identity Not on file Sexual Orientation Not on file COVID-19 Exposure Response Date Recorded In the last 10 days, have yo u been in contact with someone who was confirmed or suspected to have Coronavirus/COVID-19? No / Unsure 07/06/2023 8:57 AM CDT documented as of this encounter Progress Notes * Che Dickerson, BALANCE ASSEMBLER - 07/06/2023 9:00 AM CDT Images from the original note were not included. [facility] BE[facility]IOR[facility] CLINICAL PROGRESS NOTE NAME: Annalise Vogt AGE: 18 y.o. DATE OF : 2005 DATE OF SERVICE: 07/06/2023 START TIME: 9:00am END TIME: 10:30am Patient was assessed via online video for a duration of 45 minutes. Patient verbally consented for this service to be performed and billed.The patient was at home. DIAGNOSIS: 1. Anxiety TREATMENT PLAN: Goals Addressed This Visit's Progress ??? just want to feel normal (pt-stated) On track Goal/Objective: Decrease anxious and depressive symptoms. Anticipated Time Frame for Goal Completion: 6 months Goal Reviewed with: patient Readiness to change: Ready to change Department associated with goal: [facility] Steps to achieve goal: 1. will attend counseling/psychotherapy sessions at least once monthly, at least 6 sessions, utilizing individual and/or group sessions to express thoughts and feelings. 2. to identify, verbalize and process at least three contributing factors/triggers to anxiety and depression. 3. to identify and verbalize at least three actions/skills to prevent and/or cope with anxiety and depression. 4. to put into action, at least one time weekly, for one month, an action/skill to prevent and or cope with anxiety and depression. PROBLEM STATUS: Annalise was seen today due to the following concerns: Anxiety: avoidance difficulties concentrating fatigue intrusive thoughts nervousness panic restlessness stress worry Annalise states that she has some good news, but this is a stressor. She learned she is but has experienced loss in the past. She has worked to limit the risk and found a new OBGYN that is helping her and she is almost 9 weeks now. She is very excited. Discussed and Educated patient on CBT and ANT. Challenged thoughts as appropriate and gain insight, as well as provide commitment of how toindentify these big emotions. Provided Support and encouragement. Based upon the presenting problem the following treatment modalities were utilized: Cognitive Behavioral Therapy Psycho-education Supportive/Client Centered Therapy THERAPEUTIC INTERVENTIONS USED: This clinician provided therapeutic interventions for: Anxiety: increasing insight into current difficulties coping skills for reducing anxiety identifying and decreasing cognitive distortions/negative automatic thoughts contributing negatively to anxious mood and behavior identifying, verbalizing, and processing feelings effectively Depression: increasing insight into current difficulties identifying, verbalizing, and processing feelings effectively learning positive coping skills and utilizing them at appropriate times/when needed . Annalise verbalized an understanding and responded well to interventions provided during treatment session. PROGRESS TOWARDS GOALS: Annalise reported slight improvement of symptoms. MENTAL STATUS EXAM: Annalise is: cooperative open pleasant. Affect is: within normal range. Mood is: congruent to situation. There is: no current suicidal ideation.. There is: no current homicidal ideation.. TREATMENT RECOMMENDATIONS/FOLLOW UP: Recommendations for follow up treatment plan: Continue individual therapy as needed for support and guidance Continue family therapy as needed for support and guidance. CHE DICKERSON LCSW documented in this encounter Plan of Treatment Upcoming Encounters Date Type Department Care Team (Late st Contact Info) Description 10/07/2024 3:00 PM PARAFFIN MACHINE OPERATOR Office Visit [facility] [place] [address] [place] [address] Bianka Oneill, YARED [address] [place] [address] documented as of this encounter Goals Goal Patient Goal Type Associated Problems Recent Progress Patient-Stated? Author just want to feel normal Behavioral Health On track(2023 4:08 PM PARAFFIN MACHINE OPERATOR) Yes Che Dickerson LCSW Note: Goal/Objective: Decrease anxious and depressive symptoms. Anticipated Time Frame for Goal Completion: 6 months Goal Reviewed with: patient Readiness to change: Ready to change Department associated with goal: [facility] Steps to achieve goal: will attend counseling/psychotherapy sessions at least once monthly, at least 6 sessions, utilizing individual and/or group sessions to express thoughts and feelings. to identify, verbalize and process at least three contributing factors/triggers to anxiety and depression. to identify and verbalize at least three actions/skills to prevent and/or cope with anxiety and depression. to put into action, at least one time weekly, for one month, an action/skill to prevent and or cope with anxiety and depression. 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
--- OUTSIDE RECORDS SUMMARY | 2024-09-22 20:28 | XMS_ITS | Encounter Summary ---
Author Organization [facility] Address [address] [place] [address] Phone Care Team Providers Care Television Tube Inspector Name Role Phone Bianka Oneill Primary Care Provider + Reason for Visit * Reason Comments Medication Refill Encounter Details Date Type Department Care Team (Late st Contact Info) Description 07/13/2023 Refill [facility] - Family Medicine [facility] [address] [place] [address] Bianka Oneill PAC [address] [place] [address] Medication Refill Social History Tobacco Use Types Packs/Day Years [...] Recorded In the last 10 days, have judson baxter been in contact with someone who was confirmed or suspected to have Coronavirus/COVID-19? No / Unsure 07/06/2023 8:57 AM CDT documented as of this encounter Miscellaneous Notes * Telephone Encounter - Milena Gonzalez RN - 07/13/2023 10:36 AM CDT Medication failed the protocol, provider to review and approve the medication order if appropriate. Requested Prescriptions Pending Prescriptions Disp Refills escitalopram (LEXAPRO) 20 MG Tablet [Pharmacy Med Name: ESCITALOPRAM 20MG TABLETS] 90 Tablet 0 Sig: Take 1 Tablet by mouth daily. SSRI (6 Month Refill Only) Protocol Failed - 07/13/2023 5:18 AM Failed - No test in the past 12 months or most recent test was negative Failed - No active on record Passed - Visit with relevant provider in past 6 months or upcoming 90 days Recent Visits Date Type Provider Dept 05/29/23 Office Visit Bianka Oneill PAC [facility] 05/05/23 Telemedicine Bianka Oneill PAC [facility] 04/17/23 Office Visit Bianka Oneill PAC [facility] 03/23/23 Office Visit Bianka Oneill PAC [facility] 03/01/23 Office Visit Mikie Solorio MD [facility] 02/24/23 Office Visit Bianka Oneill PAC [facility] 01/13/23 Office Visit Bianka Oneill PAC [facility] Showing recent visits within past 182 days and meeting all other requirements Future Appointments Date Type Provider Dept 08/28/23 Appointment Bianka Oneill PAC [facility] Showing future appointments within next 90 days and meeting all other requirements Passed - Patient has established therapy with SSRI for at least 6 months Passed - Has an encounter in the past 6 months with a depression, anxiety, adjustment disorder, OCD, or PTSD visit diagnosis famotidine (PEPCID) 20 MG Tablet [Pharmacy Med Name: FAMOTIDINE 20MG TABLETS] 60 Tablet 3 Sig: TAKE 1 TABLET BY MOUTH TWICE DAILY H2 Antagonists Protocol Passed - 07/13/2023 5:18 AM Passed - Visit with relevant provider in past 12 months or upcoming 90 days Recent Visits Date Type Provider Dept 05/29/23 Office Visit Bianka Oneill, PAC [facility] 05/05/23 Telemedicine Bianka Oneill, PAC [facility] 04/17/23 Office Visit Bianka Oneill, PAC [facility] 03/23/23 Office Visit Bianka Oneill, PAC [facility] 03/01/23 Office Visit Mikie Solorio MD [facility] 02/24/23 Office Visit ArunoctavionattyBianka, PAC [facility] 01/13/23 Office Visit Bianka Oneill, PAC [facility] 11/29/22 Office Visit Bianka Oneill, PAC [facility] 10/21/22 Office Visit Bianka Oneill, PAC [facility] 09/30/22 Office Visit ArunBianka villanueva, PAC [facility] Showing recent visits within past 365 days and meeting all other requirements Future Appointments Date Type Provider Dept 08/28/23 Appointment ArunoctavionattyBianka, PAC [facility] Showing future appointments within next 90 days and meeting all other requirements documented in this encounter Plan of Treatment Upcoming Encounters Date Type Department Care Team (Late st Contact Info) Description 10/07/2024 3:00 PM COMMISSIONER OF CONCILIATION Office Visit [facility] - Family Medicine - [place] [address] [place] [address] ArunoctavioBren luzJosie, PAC [address] [place] [address] documented as of this encounter Goals Goal Patient Goal Type Associated Problems Recent Progress Patient-Stated? Author just want to feel normal Behavioral Health On track(2023 4:08 PM COMMISSIONER OF CONCILIATION) Yes Che Dickerson, DIRECT CARE SPECIALIST Note: Goal/Objective: Decrease anxious and depressive symptoms. Anticipated Time Frame for Goal Completion: 6 months Goal Reviewed with: patient Readiness to change: Ready to change Department associated with goal: [facility] Steps to achieve goal: [...] as of this encounter Visit Diagnoses Diagnosis Anxiety Anxiety state, unspecified documented in this encounter Additional Health Concerns Infection Onset Date Last Indicated Resolved Time MRSA 03/23/2023 03/23/2023 Assessment Noted Time PHQ-9 Depression Total Score: 0 05/29/20 23 10:33 AM CDT documented as of this encounter Care Teams Television Tube Inspector Relationship Specialty Start Date End Date Bianka Oneill PAC [address] [place] [address] PCP - General Physician Associate Professor Of Biology 08/18/22 documented as of this encounter
--- OUTSIDE RECORDS SUMMARY | 2024-09-22 20:28 | XMS_ITS | Encounter Summary ---
Author Organization [facility] [employer] Care Team Providers Care Financial Services Consultant Name Role Phone Bianka Oneill Primary Care Provider + Encounter Details Date Type Department Care Team (Latest Contact Info) Description 06/03/2023 Travel Social History Tobacco Use Types Packs/Day Years [...] suspected to have Coronavirus/COVID-19? No / Unsure 06/03/2023 6:20 AM CDT documented as of this encounter Plan of Treatment Upcoming Encounters Date Type Department Care Team (Late st Contact Info) Description 10/07/2024 3:00 PM EDUCATIONAL RESOURCE CENTER TEACHER Office Visit [facility] Medical [facility] [address] [place] [address] Bianka Oneill PAC [address] [place] [address] documented as of this encounter Goals Goal Patient Goal Type Associated Problems Recent Progress Patient-Stated? Author just want to feel normal Behavioral Health On track(2023 4:08 PM EDUCATIONAL RESOURCE CENTER TEACHER) Yes Che Dickerson, INTERNATIONAL STUDENT ADVISOR Note: Goal/Objective: Decrease anxious and depressive symptoms. Anticipated Time Frame for Goal Completion: 6 months Goal Reviewed with: patient Readiness to change: Ready to change Department associated with goal: [facility] Steps to achieve [...] documented as of this encounter Visit Diagnoses Not on filedocumented in this encounter Additional Health Concerns Infection Onset Date Last Indicated Resolved Time MRSA 03/23/2023 03/23/2023 Assessment Noted Time PHQ-9 Depression Total Score: 0 05/29/20 23 10:33 AM CDT documented as of this encounter Care Teams Financial Services Consultant Relationship Specialty Start Date End Date Bianka Oneill PAC [address] [place] [address] PCP - General Physician Lacquer Machine Feeder 08/18/22 documented as of this encounter
--- OUTSIDE RECORDS SUMMARY | 2024-09-22 20:28 | XMS_ITS | Encounter Summary ---
Author Organization [facility] [employer] Care Team Providers Care Lacing Cutter Name Role Phone Bianka Oneill Primary Care Provider + Encounter Details Date Type Department Care Team (Latest Contact Info) Description 08/09/2023 Travel Social History Tobacco Use Types Packs/Day [...] suspected to have Coronavirus/COVID-19? No / Unsure 07/26/2023 11:17 AM FABRIC PATTERN GRADER documented as of this encounter Plan of Treatment Upcoming Encounters Date Type Department Care Team (Late st Contact Info) Description 10/07/2024 3:00 PM FABRIC PATTERN GRADER Office Visit [facility] Medical [facility] [address] [place] [address] Bianka Oneill PAC [address] [place] [address] documented as of this encounter Goals Goal Patient Goal Type Associated Problems Recent Progress Patient-Stated? Author just want to feel normal Behavioral Health On track(2023 4:08 PM FABRIC PATTERN GRADER) Yes Che Dickerson, CHEMICAL SALES REPRESENTATIVE Note: Goal/Objective: Decrease anxious and depressive symptoms. Anticipated Time Frame for Goal Completion: 6 months Goal Reviewed with: patient Readiness to change: Ready to change Department associated with goal: [facility] Steps to achieve [...] documented as of this encounter Care Teams Lacing Cutter Relationship Specialty Start Date End Date Bianka Oneill PAC [address] [place] [address] PCP - General Physician Agricultural Produce Commission Agent 08/18/22 documented as of this encounter
--- OUTSIDE RECORDS SUMMARY | 2024-09-22 20:28 | XMS_ITS | Encounter Summary ---
Author Organization [facility] Address [address] [place] [place] [address] Phone Care Team Providers Care Supervisor Of Instruction Name Role Phone Bianka Oneill Primary Care Provider + Encounter Details Date Type Department Care Team (Latest Contact Info) Description 03/01/2024 8:09 AM CDT - 03/01/2024 11:59 PM CDT Hospital Encounter [facility] [address] [place] [address] Provider, Not On File [place] Discharge Disposition: Discharged to home or Selfcare [...] grade 03/01/2023 Sexually Active Control Partners Comments Yes Oral Contraceptive Male Comments Yes Sex and Gender Information Value Date Recorded Sex Assigned at Not on file Legal Sex Female 8:55 PM CDT Gender Identity Not on file Sexual Orientation Not on file documented as of this encounter Medications at Time of Discharge Docusate Calcium (STOOL SOFTENER PO) Take by mouth. famotidine (PEPCID) 20 MG Tablet TAKE 1 TABLET BY MOUTH TWICE DAILY 60 Tablet 3 07/13/2023 Norethindrone, Contraceptive, 0.35 MG Tablet Take 1 Tablet by mouth daily. 02/15/2024 ondansetron (ZOFRAN-ODT) 4 MG TABLET DISPERSIBLE Take 1 Tablet by mouth every 8 hours as needed for Nausea - 1st line. 30 Tablet 10/04/2023 escitalopram (Lexapro) 10 MG Tablet Take 10 mg by mouth daily. 4 ferrous sulfate 325 (65 Fe) MG TabletIndications:Ane nery, unspecified type Take 1 Tablet by mouth 2 times daily. 60 Tablet 3 02/27/2023 4 glyBURIDE (DIABETA) 5 MG Tablet TAKE 1/2 TABLET BY MOUTH EVERY NIGHT AT BEDTIME 12/27/2023 4 HYDROcodone-acetamino phen (NORCO) 5-325 MG TabletIndications:S/P laparoscopic cholecystectomy Take 1-2 Tablets by mouth every 8 hours as needed for Moderate or more severe pain. 12 Tablet 03/05/2024 4 Vit-Fe Fumarate-FA ( VITAMINS PO) Take by mouth. 4 documented as of this encounter Plan of Treatment Upcoming Encounters Date Type Department Care Team (Late st Contact Info) Description 10/07/2024 3:00 PM MAGENTO WEB DEVELOPER Office Visit [facility] [address] [place] [address] Bianka Oneill PAC [address] [place] [address] documented as of this encounter Goals Goal Patient Goal Type Associated Problems Recent Progress Patient-Stated? Author just want to feel normal Behavioral Health On track(2023 4:08 PM MAGENTO WEB DEVELOPER) Yes Che Dickerson, BLENDING OPERATOR Note: Goal/Objective: Decrease anxious and depressive symptoms. Anticipated Time Frame for Goal Completion: 6 months Goal Reviewed with: patient Readiness to change: Ready to change Department associated with goal: [facility] Steps to achieve [...] and depression. documented as of this encounter Procedures Procedure Name Priority Date/Time Associated Diagnosis Comments CT REFERENCE IMAGES FOR IMAGE IMPORT Routine 03/01/2024 8:09 AM CDT documented in this encounter Results * CT REFERENCE IMAGES FOR IMAGE IMPORT (03/01/2024 8:09 AM CDT) us Not On File Provider IMG CT ORDERABLES Final Res ult documented in this encounter Visit Diagnoses Not on filedocumented in this encounter Additional Health Concerns Infection Onset Date Last Indicated Resolved Time MRSA 03/23/2023 03/23/2023 Assessment Noted Time PHQ-9 Depression Total Score: 0 05/29/20 23 10:33 AM CDT documented as of this encounter Care Teams Supervisor Of Instruction Relationship Specialty Start Date End Date Bianka Oneill PAC [address] [place] [address] PCP - General Physician Band Straightener 08/18/22 documented as of this encounter
--- OUTSIDE RECORDS SUMMARY | 2024-09-22 20:28 | XMS_ITS | Encounter Summary ---
Author Organization [facility] Address [address] [place] [address] Phone Care Team Providers Care Concrete Block Molder Name Role Phone Bianka Oneill Primary Care Provider + Suresh Gleason MD Unavailable [phone] Reason for Visit * Reason Comments Mole Encounter Details Date Type Department Care Team (Late st Contact Info) Description 03/29/2024 11:30 AM CDT Procedure Visit [facility] - General Surgery - [place] [address] [address] Suresh Gleason MD [address] [address] Skin lesion (Primary Dx) Discharge Disposition: Discharged to home or Selfcare Social History Tobacco Use Types Packs/Day Years Used Date Smoking Tobacco: Never Smokeless Tobacco: Never Tobacco Cessation:Counseling Given: Not Answered Alcohol Use Standard Drinks/Week Comments Never 0 (1 standard drink = 0.6 oz pur e alcohol) PHQ-2 Answer Date Recorded Total Score - Questions 1-9 0 05/19 Education Answer Date Recorded What is the highest level of school you have completed or the highest degree you have received? 12th grade 03/01/2023 Sexually Active Control Partners Comments Yes Oral Contraceptive Male Comments Unknown Sex and Gender Information Value Date Recorded Sex Assigned at Not on file Legal Sex Female 8:55 PM CDT Gender Identity Not on file Sexual Orientation Not on file documented as of this encounter Last Filed Vital Signs Vital Sign Reading Time Taken Comments Blood Pressure 130/76 03/29/2024 11:35 AM CDT Pulse 116 03/29/2024 11:35 AM CDT Temperature 36.3 ??C (97.3 ??F) 03/29/2024 11:35 AM C DT Respiratory Rate 20 03/29/2024 11:35 AM CDT Oxygen Saturation 98% 03/29/2024 11:35 AM CDT Inhaled Oxygen Concentration - - Weight 95.3 kg (210 lb) 03/29/2024 11:35 AM CDT Height 160 cm (5' 3 ) 03/29/2024 11:35 AM CDT Body Mass Index 37.2 03/29/2024 11:35 AM CDT documented in this encounter Patient Instructions * Patient Instructions* Suresh Gleason MD - 03/29/2024 11:30 AM CDT Thank you for visiting my clinic today.We will call you back with pathology results. You can take Tylenol for pain.Ok to shower, remove transparent dressing in 2-3 days. The Steri-Strips, little bandages underneath, will fall off on their own. You don't have to see me again unless you are having problems with your wound. documented in this encounter Procedure Notes * Suresh Gleason MD - 03/29/2024 11:30 AM CDT Procedure Excisional biopsy skin lesion, left shoulder Anesthesia Local, mixture 0.25% bupivacaine and 1% lidocaine 6 cc total Risks, benefits and alternatives of the procedure were discussed with the patient The area of interest was prepped and draped in a sterile fashion Local anesthetic was infiltrated around the skin lesion Using knife, an incision was done through the skin down to the level of the subcutaneous tissue with at least 2 mm margin of healthy skin The rest of the dissection was completed sharply using knife and scissors The specimen was removed and was taken to pathology for analysis The specimen measure 1.1 cm in length and 0.7 cm in width The wound was reapproximated with interrupted 4 Monocryl suture Steri-Strips and Tegaderm applied Blood loss 2 cc My office will communicate with the patient regarding pathology results The patient will follow up with me as needed By: Suresh Gleason MD; 03/29/2024, 12:15 PM CDT documented in this encounter Plan of Treatment Upcoming Encounters Date Type Department Care Team (Late st Contact Info) Description 10/07/2024 3:00 PM TEAM TRUCK DRIVER Office Visit [facility] Medical [facility] [address] [place] [address] Bianka Oneill PAC [address] [place] [address] Scheduled Orders Name Type Priority Associated Diagnoses Orde r Schedule EXC SKIN BENIG 1.1-2CM TRUNK,ARM,LEG Procedures Routine Skin lesion Ordered: 03/29/2024 documented as of this encounter Goals Goal Patient Goal Type Associated Problems Recent Progress Patient-Stated? Author just want to feel normal Behavioral Health On track(2023 4:08 PM TEAM TRUCK DRIVER) Yes Che Dickerson, QUALITY CONTROL ASSISTANT Note: Goal/Objective: Decrease anxious and depressive symptoms. Anticipated Time Frame for Goal Completion: 6 months Goal Reviewed with: patient Readiness to change: Ready to change Department associated with goal: [facility] Steps [...] Procedure Name Priority Date/Time Associated Diagnosis Comments PATHOLOGY SURGICAL Routine 03/29/2024 12 :22 PM CDT Skin lesion documented in this encounter Results * PATHOLOGY SURGICAL (03/29/2024 12:22 PM CDT) Case Report Surgical Pathology Report ? Case: [id number] ? Authorizing Provider: ??Suresh Gleason, ??Collected: ? 03/29/2024 12:22 PM ? MD ? Ordering Location: ? [facility] - ?Received: ?03/29/2024 12:22 PM ? General Surgery - [place] ? Pathologist: ? Jelani Lawrence MD PhD ? Specimen: ?Shoulder, Skin left shoulder ? 04/01/2024 11:44 AM [facility] FINAL DIAGNOSIS Skin, left shoulder, lesion, excision: - Skin with focal parakeratosis, papillary acanthosis, and lichenoid chronic inflammatory infiltration - Negative for malignancy 04/01/2024 11:44 AM [facility] Pre-Operative Diagnosis Skin lesion left shoulder 04/01/2024 11:44 AM [facility] Gross Description A. Skin left shoulder The specimen presents in a single formalin container for gross and microscopic examination, labeled with the patient's name, Annalise Vogt, and designated skin lesion left shoulder. The specimen consists of a 1.2 cm x 0.9 cm unoriented skin ellipse excised to a depth of 0.5 cm. The surface of the skin ellipse is light claros and somewhat dome-shaped and has an ill-defined soft nodule appearing to measure 0.5 cm x 0.5 cm and raised above the normal-appearin g light claros skin by 0.2 cm. The excisional margin is inked. The specimen is sectioned at narrow intervals. All submitted cassette A1. KS/sb Total time of fixation is 57 hours, 24 minutes. 04/01/2024 11:44 AM [facility] Microscopic Description Microscopic examination was performed which supports the final diagnosis. All control tissues stained appropriately. 04/01/2024 11:44 AM [facility] Other SHOULDER REGION STRUCTURE / Unknown Non-Phlebotomy Collection / Unknown 03/29/2024 12:22 PM CDT 03/29/2024 12:22 PM CDT uSresh Gleason MD PATHOLOGY/CYTOLOGY OR DERABLES Final Result [facility] [address] [place] [address] documented in this encounter Visit Diagnoses Diagnosis Skin lesion- Primary Unspecified disorder of skin and subcutaneous tissue documented in this encounter Administered Medications Inactive Administered Medications - up to 3 most recent administrations Medication Order MAR Action Action Date Dose Rate Site bupivacaine (MARCAINE) 0.25 % injection 3 mL 3 mL, Injection, ONCE, 1 dose, On Mon03/29/24 at 1230Indications:Skin lesion Given 03/29/2024 12:20 PM CDT 3 mL lidocaine 1 % injection 3 mL 3 mL, Injection, ONCE, 1 dose, On Mon03/29/24 at 1230Indications:Skin lesion Given 03/29/2024 12:20 PM CDT 3 mL documented in this encounter Additional Health Concerns Infection Onset Date Last Indicated Resolved Time MRSA 03/23/2023 03/23/2023 Assessment Noted Time PHQ-9 Depression Total Score: 0 05/29/20 23 10:33 AM CDT documented as of this encounter Care Teams Concrete Block Molder Relationship Specialty Start Date End Date Bianka Oneill PAC [address] [place] [address] PCP - General Physician Damper Fitter 08/18/22 Suresh Gleason MD [address] [address] Consulting Physician General Surgery 03/11/24 documented as of this encounter
--- OUTSIDE RECORDS SUMMARY | 2024-09-22 20:28 | XMS_ITS | Encounter Summary ---
Author Organization [facility] Address [address] [place] [address] Phone Care Team Providers Care Table Operator Name Role Phone Bianka Oneill Primary Care Provider + Reason for Visit * Auth/Cert (Routine) Specialty Diagnoses / Procedures Referred By Contac t Referred To Contact Diagnoses GALLBLADDER DISEASE Procedures LAPAROSCOPIC CHOLECYSTECTOMY WITH / WITHOUT CHOLANGIOGRAMS Suresh Gleason MD [address] [address] Phone: tel: fax: Referral ID Status Reason Start Date Expiration Date Visits Re quested Visits Authorized [id number] 1 1 Encounter Details Date Type Department Care Team (Late st Contact Info) Description 03/05/2024 8:30 AM CDT Anesthesia Event [facility] Periop 1 [place] [id number] Harry Guzman MD #1 [place] [address] Anesthesia Record Procedure Summary Procedure Name Responsible Anesthesiologist Anesthesia Start Time Anesthesia Stop Time LAPAROSCOPIC CHOLECYSTECTOMY (Abdomen) Harry Guzman MD 03/05/24 0830 03/05/24 0934 Events Date Time Event Comment 03/05/2024 0830 An Start 0830 An Start Data 0834 ANASSESSCMPLT 0835 An Induction 0837 Intubation 0844 Anesthesia Ready 0847 0932 An Extubation 0932 Stop Data Collection 0932 Transort to Postop 0934 Handoff to RN I completed my SBAR handoff to the receiving nurse. Last vitals BP: 111/65 Temp: 36.6 ??C Pulse: 83 Resp: 16 SpO2: 99 % 0934 An Stop Last vitals: BP : 111/65 Temp: 36.6 ??C Pulse: 83 Resp: 16 SpO2: 99 % Meds Name Total propofol 10 mg/mL 200 mg rocuronium 10 mg/mL 50 mg fentaNYL 50 mcg/mL 200 mcg glycopyrrolate 0.2 mg/mL 0.4 mg neostigmine 1 mg/mL 4 mg ondansetron 4 mg/2 mL 4 mg cefOXitin (MEFOXIN) injection 2 g 2 g lactated ringers infusion 1,000 mL * Agents No agents on file. * Blood No blood administrations on file. Lines, Drains, and Airways Type Details Placement Removal PIV-Single Lumen Placement Date: 02/16 05/11; Placement Time: 0732; Catheter Size: 22 G; Orientation: Left, Posterior; Location: Hand; Site Prep: Chlorhexidine ; Technique: Anatomical landmarks; Inserted by: Daniel NATH; Insertion Attempts: 1; Difficult Venous Access? No; Patient Tolerance: Tolerated well; Removal Date: 03/05/24; Removal Time: 1100 03/05/24 0732 by Elvira Arechiga RN 03/05/24 1100 by Stephanie Rodriguez RN ETT Placement Date: 02/16 05/11; Placement Time: 0845 (created via procedure documentation); Removal Date: 03/05/24; Removal Time: 0932 03/05/24 0845 by Harry Guzman MD 03/05/24 0932 by Harry Guzman MD *Wound 03/05/24; 0852; Inci carlos a; Umbilicus; LAPAROSCOPIC PUNCTURE; 04/04/24; 1150 03/05/24 0852 by Farzana Khan RN 04/04/24 1150 by Auto-Discontinue, System *Wound 03/05/24; 0853; Inci carlos a; Medial, Upper; Abdomen; LAPAROSCOPIC PUNCTURE; 04/04/24; 1150 03/05/24 0853 by Farzana Khan RN 04/04/24 1150 by Auto-Discontinue, System *Wound 03/05/24; 0854; Inci carlos a; Right, Upper, Lateral; Abdomen; LAPAROSCOPIC PUNCTURE; 04/04/24; 1150 03/05/24 0854 by Farzana Khan RN 04/04/24 1150 by Auto-Discontinue, System *Wound 03/05/24; 0855; Inci carlos a; Right, Lateral; Abdomen; LAPAROSCOPIC PUNCTURE; 04/04/24; 1150 03/05/24 0855 by Farzana Khan RN 04/04/24 1150 by Auto-Discontinue, System documented in this encounter Social History Tobacco Use Types Packs/Day Years [...] on file documented as of this encounter OR Notes * Anesthesia Postprocedure Evaluation - Harry Guzman MD - 03/05/2024 9:35 AM CDT Patient: Annalise Vogt Procedure Summary Date: 03/05/24 Room / Location: [facility] MAIN OR 02 / [facility] Anesthesia Start: 829 Anesthesia Stop: 933 Procedure: LAPAROSCOPIC CHOLECYSTECTOMY (Abdomen) Diagnosis: (GALLBLADDER DISEASE) Surgeons: Suresh Gleason MD Responsible Provider: Harry Guzman MD Anesthesia Type: general ASA Status: 2 Anesthesia Type: general Last vitals Vitals Value Taken Time BP 120/65 Temp 37 Pulse 90 Resp 16 SpO2 98 Pain score: 0 Pain management: adequate Patient location during evaluation: PACU Patient participation: Sufficiently recovered to participate Level of consciousness: sleepy but conscious Cardiovascular status: acceptable Respiratory status: acceptable Hydration status: acceptable Anesthetic complications: no Airway patency: patent Nausea and Vomiting: none * Anesthesia Preprocedure Evaluation - Harry Guzman MD - 03/05/2024 8:46 AM CDT Anesthesia Evaluation Procedure Information Anesthesia Start Date/Time: 03/05/24829 Procedure: LAPAROSCOPIC CHOLECYSTECTOMY (Abdomen) Location: [facility] MAIN OR 02 / [facility] Surgeons: Suresh Gleason MD Anesthesia Evaluation Anesthesia Plan ASA 2 general [facility] ANESTHESIA PREOPERATIVE NOTE Date of Procedure: 03/05/2024 Patient/Guardian (s) Interviewed: yes NPO Status Acceptable: yes Labs and Pretesting Reviewed in Epic: yes Positive Test: no History of Anesthesia complications: no Lab Results Component Value Date WBC 6.08 02/24/2023 HEMOGLOBIN 11.9 (L) 02/24/2023 HEMATOCRIT 39.6 02/24/2023 MCV 77.0 (L) 02/24/2023 Lab Results Component Value Date SODIUM 141 04/17/2023 POTASSIUM 4.0 04/17/2023 CHLORIDE 105 04/17/2023 CO2VEN 23 04/17/2023 GLUCOSE 87 04/17/2023 ANIONGAP 17.0 04/17/2023 BUN 9 04/17/2023 CREATININE 0.53 (L) 04/17/2023 CALCIUM 9.8 04/17/2023 No results found for: INR , PTP , APTT No results found. No results found. Age:18 y.o. Wt Readings from Last 1 Encounters: 03/05/24 213 lb 9 oz (96.9 kg) (98%, Z= 2.13)* * Growth percentiles are based on CDC (Girls, 2-20 Years) data. Body mass index is 37.83 kg/m??. Planned Procedure: Procedure(s): LAPAROSCOPIC CHOLECYSTECTOMY Preoperative Diagnosis: GALLBLADDER DISEASE No Known Allergies Prior to Admission medications Medication Sig Start Date End Date Taking? Authorizing Provider Docusate Calcium (STOOL SOFTENER PO) Take by mouth. Yes ProviderDebbie MD escitalopram (Lexapro) 10 MG Tablet Take 10 mg by mouth daily. Yes Provider, MD Debbie famotidine (PEPCID) 20 MG Tablet TAKE 1 TABLET BY MOUTH TWICE DAILY 07/13/23 Yes Bianka Oneill PAC ferrous sulfate 325 (65 Fe) MG Tablet Take 1 Tablet by mouth 2 times daily. 02/27/23 Yes Bianka Oneill PAC ondansetron (ZOFRAN-ODT) 4 MG TABLET DISPERSIBLE Take 1 Tablet by mouth every 8 hours as needed forNausea - 1st line. 10/04/23 Yes Bianka Oneill PAC Vit-Fe Fumarate-FA ( VITAMINS PO) Take by mouth. Yes Provider, MD Debbie Current Facility-Administered Medications Medication Dose Route Frequency Provider Last Rate Last Admin cefOXitin (MEFOXIN) injection 2 g 2 g Intravenous Once Suresh Gleason MD 2 g at 844 fentaNYL (PF) (SUBLIMAZE) injection 50 mcg 50 mcg Intravenous Q10 Min PRN Harry Guzman MD lactated ringers infusion Intravenous Continuous Suresh Glaeson MD 20 mL/hr at 03/05/24 0733 New Bag at 03/05/24 0733 ondansetron (ZOFRAN) injection 4 mg 4 mg Intravenous Q12H PRN Harry Guzman MD Facility-Administered Medications Ordered in Other Encounters Medication Dose Route Frequency Provider Last Rate Last Admin fentaNYL (PF) (SUBLIMAZE) injection Intravenous ONCE (in OR) Harry Guzman MD 100 mcg at 03/05/24 0830 ondansetron (ZOFRAN) injection Intravenous ONCE (in OR) Harry Guzman MD 4 mg at 03/05/24 0844 propofol (DIPRIVAN) injection Intravenous ONCE (in OR) Harry Guzman MD 200 mg at 03/05/24 0830 rocuronium (ZEMURON) injection Intravenous ONCE (in OR) Harry Guzman MD 50 mg at 03/05/24 0830 Past Medical History Positives Diagnosis Date Anemia due to heavy menstruation Anxiety Asthma A CHILD Diabetes mellitus (HCC) gestational Past Surgical History: Procedure Laterality Date SECTION 01/19/2024 boy (low transverse) HIP ARTHROSCOPY Left 04/2023 Preanesthetic Exam: Mental Status:awake Airway Assessment Mallampati Scale: 2 TM distance: >3fb Neck ROM: full Lungs: clear to auscultation bilaterally Heart: regular rate and rhythm, S1, S2 normal, no murmur, click, rub or gallop BP 111/65 Pulse 83 Temp 36.6 ??C (Temporal) Resp 16 Ht 5' 3 (1.6 m) Wt 213 lb 9 oz (96.9kg) LMP 04/22/2023 (Approximate) SpO2 99% BMI 37.83 kg/m?? ASA physical status: 2 Anesthetic plan: General Anesthesia plan was discussed with surgeon: yes Risk,benefits, and alternatives explained to patient/guardian:yes All questions answered:yes Harry Guzman MD 03/05/2024, 8:46 AM CDT * Anesthesia Procedure Notes - Harry Guzman MD - 03/05/2024 8:45 AM CDT Associated Order(s): Intubation in OR Intubation in OR Staffing Performed: anesthesiologist Performed by: Harry Guzman MD Authorized by: Harry Guzman MD Overall Difficulty: Easy Procedure Details Patient Position: Sniffing Ease of mask ventilation: easy with airway Intubation Site: oral Tube Type: Standard Cuffed: yes Intubation Method: Video laryngoscopy Cricoid Pressure: No Rapid Sequence: No Airway Assist Devices: oral airwayVideo Laryngoscope Used: Glidescope 4 Stylet Used: Yes Laryngeal View: Grade I Tube Size: 7.5 mmConfirmation: breath sounds and +EtCO2 Depth: 22 cm Atraumatic: Atraumatic intubation documented in this encounter Plan of Treatment Upcoming Encounters Date Type Department Care Team (Late st Contact Info) Description 10/07/2024 3:00 PM CELLARS SUPERVISOR Office Visit [facility] [place] [phone] Bianka Oneill, PAC [address] [place] [address] documented as of this encounter Goals Goal Patient Goal Type Associated Problems Recent Progress Patient-Stated? Author just want to feel normal Behavioral Health On track(2023 4:08 PM CELLARS SUPERVISOR) Yes Che Dickerson LCSW Note: Goal/Objective: Decrease anxious and depressive symptoms. Anticipated Time Frame for Goal Completion: 6 months Goal Reviewed with: patient Readiness to change: Ready to change Department associated with goal: [facility] BE[facility]AVIOR[facility] HE[facility] SERVICES Steps to [...] Procedure Name Priority Date/Time Associated Diagnosis Comments INTUBATION IN OR Routine 03/05/2024 8:45 AM CDT documented in this encounter Results * Intubation in OR (03/05/2024 8:45 AM CDT) Narrative Harry Guzman MD - 03/05/2024 8:45 AM CDT Harry Guzman MD ? 03/05/2024 ??8:45 AM Intubation in OR Staffing Performed: anesthesiologist Performed by: Harry Guzman MD Authorized by: Harry Guzman MD ?? Overall Difficulty: ??Easy Procedure Details Patient Position: ??Sniffing Ease of mask ventilation: easy with airway Intubation Site: oral Tube Type: ??Standard Cuffed: yes Intubation Method: ??Video laryngoscopy Cricoid Pressure: ??No Rapid Sequence: ??No Airway Assist Devices: oral airwayVideo Laryngoscope Used: Glidescope 4 Stylet Used: ??Yes Laryngeal View: ??Grade I Tube Size: 7.5 mmConfirmation: breath sounds and +EtCO2 Depth: ??22 cm Atraumatic: ??Atraumatic intubation Harry Guzman MD ANESTHESIA ORDERABLES Final R esult documented in this encounter Visit Diagnoses Not on filedocumented in this encounter Administered Medications Inactive Administered Medications - up to 3 most recent administrations Medication Order MAR Action Action Date Dose Rate Site cefOXitin (MEFOXIN) injection 2 g 2 g, Intravenous, ONCE, 1 dose, On Mon03/05/24 at 0800, Administer over 5 Minutes, INTRA-OP, Indications: Perioperative PharmacoprophylaxisIndications:Summer operative Pharmacoprophylaxis Given 03/05/2024 8:44 AM CDT 2 g fentaNYL (PF) (SUBLIMAZE) injection Intravenous, ONCE (in OR), Starting on Mon03/05/24 at 0830, Until Mon03/05/24 at 0934 Given 03/05/2024 9:34 AM CDT 50 mcg Given 03/05/2024 8:58 AM CDT 50 mcg Given 03/05/2024 8:30 AM CDT 100 mcg glycopyrrolate (ROBINUL) injection Intravenous, ONCE (in OR), Starting on Mon03/05/24 at 0923, Until Mon03/05/24 at 0934 Given 03/05/2024 9:23 AM CDT 0.4 mg lactated ringers infusion at 20 mL/hr, Intravenous, CONTINUOUS, Starting on Mon03/05/24 at 0800, Until Mon03/05/24 at 1350, PRE-OP (SURGERY) New Bag 03/05/2024 9:26 AM CDT 20 mL/hr New Bag 03/05/2024 7:33 AM CDT 20 mL/hr neostigmine (PROSTIGMINE) injection Intravenous, ONCE (in OR), Starting on Mon03/05/24 at 0923, Until Mon03/05/24 at 0934 Given 03/05/2024 9:23 AM CDT 4 mg ondansetron (ZOFRAN) injection Intravenous, ONCE (in OR), Starting on Mon03/05/24 at 0844, Until Mon03/05/24 at 0934 Given 03/05/2024 8:44 AM CDT 4 mg propofol (DIPRIVAN) injection Intravenous, ONCE (in OR), Starting on Mon03/05/24 at 0830, Until Mon03/05/24 at 0934 Given 03/05/2024 8:30 AM CDT 2 00 mg rocuronium (ZEMURON) injection Intravenous, ONCE (in OR), Starting on Mon03/05/24 at 0830, Until Mon03/05/24 at 0934 Given 03/05/2024 8:30 AM CDT 5 0 mg documented in this encounter Additional Health Concerns Infection Onset Date Last Indicated Resolved Time 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
--- OUTSIDE RECORDS SUMMARY | 2024-09-22 20:28 | XMS_ITS | Encounter Summary ---
Author Organization [facility] [employer] Care Team Providers Care Press Helper Name Role Phone Bianka Oneill Primary Care Provider + Encounter Details Date Type Department Care Team (Latest Contact Info) Description 05/31/2023 Travel Social History Tobacco Use Types Packs/Day [...] suspected to have Coronavirus/COVID-19? No / Unsure 05/31/2023 12:48 PM CDT documented as of this encounter Plan of Treatment Upcoming Encounters Date Type Department Care Team (Late st Contact Info) Description 10/07/2024 3:00 PM SADDLE STITCHER Office Visit [facility] Medical [facility] [place] [address] [place] [address] Bianka Oneill PAC [address] [place] [address] documented as of this encounter Goals Goal Patient Goal Type Associated Problems Recent Progress Patient-Stated? Author just want to feel normal Behavioral Health On track(2023 4:08 PM SADDLE STITCHER) Yes Che Dickerson, GROCERY SACKER Note: Goal/Objective: Decrease anxious and depressive symptoms. Anticipated Time Frame for Goal Completion: 6 months Goal Reviewed with: patient Readiness to change: Ready to change Department associated with goal: [facility] BEHAVIORAL HEALTH SERVICES Steps to [...] documented as of this encounter Care Teams Press Helper Relationship Specialty Start Date End Date Bianka Oneill PAC [address] [place] [address] PCP - General Physician Biscuit Factory Worker 08/18/22 documented as of this encounter
--- OUTSIDE RECORDS SUMMARY | 2024-09-22 20:28 | XMS_ITS | Encounter Summary ---
Author Organization [facility] Address [address] [place] [address] Phone Care Team Providers Care Content Administrator Name Role Phone Bianka Oneill Primary Care Provider + Reason for Visit * Reason Comments Anxiety Depression * Auth/Cert (Routine) Specialty Diagnoses / Procedures Referred By Contac t Referred To Contact Referral ID Status Reason Start Date Expiration Date Visits Re quested Visits Authorized [id number] 1 1 Encounter Details Date Type Department Care Team (Late st Contact Info) Description 06/01/2023 2:30 PM CDT [facility] 1 [place] [address] Che Dickerson, DYE ROOM HELPER [address] [place] [address] Anxiety (Primary Dx) Discharge Disposition: Discharged to [...] PM CDT documented as of this encounter Progress Notes * Che Dickerson, DYE ROOM HELPER - 06/01/2023 2:30 PM CDT Images from the original note were not included. [facility] BEHAVIORAL HEALTH CLINICAL PROGRESS NOTE NAME: Annalise Vogt AGE: 18 y.o. DATE OF : 2005 DATE OF SERVICE: 06/02/2023 START TIME: 2:30 pm END TIME: 3:10 pm Patient was assessed via online video for a duration of 40 minutes. Patient verbally consented for this service to be performed and billed.The patient was at [employer], in car. DIAGNOSIS: 1. Anxiety TREATMENT PLAN: Goals Addressed This Visit's Progress ??? just want to feel normal (pt-stated) On track Goal/Objective: Decrease anxious and depressive symptoms. Anticipated Time Frame for Goal Completion: 6 months Goal Reviewed with: patient Readiness to change: Ready to change Department associated with goal: [facility] BEHAVIORAL HEALTH SERVICES Steps to achieve [...] found a new OBGYN that is helping her. Discussed and Educated patient on CBT and ANT. She was able to relate experiences and learn how to start challenging ideas. Based upon the presenting problem the following [...] st Contact Info) Description 10/07/2024 3:00 PM PATCH WORKER Office Visit [facility] [address] [place] [address] Bianka Oneill, [facility] [address] [place] [address] documented as of this encounter Goals Goal Patient Goal Type Associated Problems Recent Progress Patient-Stated? Author just want to feel normal Behavioral Health On track(2023 4:08 PM PATCH WORKER) Yes Che Dickerson LCSW Note: Goal/Objective: Decrease anxious and depressive symptoms. Anticipated Time Frame for Goal Completion: 6 months Goal Reviewed with: patient Readiness to change: Ready to change Department associated with goal: [facility] BEHAVIORAL HEALTH SERVICES Steps to achieve [...] documented as of this encounter Care Teams Content Administrator Relationship Specialty Start Date End Date Bianka Oneill PAC [address] [place] [address] PCP - General Physician Building Construction Professor 08/18/22 documented as of this encounter
--- OUTSIDE RECORDS SUMMARY | 2024-09-22 20:28 | XMS_ITS | Encounter Summary ---
Author Organization [facility] Address [address] [place] [address] Phone Care Team Providers Care Manufacturing Team Member Name Role Phone Bianka Oneill Primary Care Provider + Reason for Visit * Reason Onset Date Comments Chest Pain 06/19/2023 Encounter Details Date Type Department Care Team (Late st Contact Info) Description 06/19/2023 Nurse Triage [facility] [address] [place] [address] Bianka Oneill, PAC [address] [place] [address] Chest Pain Social History Tobacco Use Types Packs/Day Years [...] In the last 10 days, have judson u been in contact with someone who was confirmed or suspected to have Coronavirus/COVID-19? No / Unsure 06/03/2023 6:20 AM CDT documented as of this encounter Miscellaneous Notes * Telephone Encounter - Mable Blair RN - 06/20/2023 12:38 PM CDT Called Medical Records at [facility], call center said needed to fax a request for records to [phone], request faxed. * Telephone Encounter - Bianka Oneill PAC - 06/19/2023 3:45 PM CDT I cannot see the outside records, if all was normal then assume it is musculoskeletal pains or intercostal chondritis, ok to schedule ER follow up, get ER records, if any worsening would return to ER * Telephone Encounter - Nellie Julian RN - 06/19/2023 3:19 PM CDT SITUATION: Chest pain BACKGROUND: Started this morning and was just seen in ED in [place]. Did EKG, D-dimer, cbc and all WNL. and is 8 weeks gestation ASSESSMENT: Symptom Description / Location: Chest pain that is constant and also having pain under left breast. Both started about 11am and hasbeen constant since Was SOB earlier. Feels mildly SOB now Left shoulder blade and left side of mid hurt when she takes a breath in. Pain (0-10): 6-7 Temp: none Treatment / Response: tums and did not help Advised she should go to ED. She does not want to go to ED as she was just there. Wanting to know if she could come into office to be seen. Please advise on your recommendations. RECOMMENDATION: See care advice and disposition for Guideline First positive answer recorded, all responses to prior questions were negative. If symptoms increase, change or if new symptoms develop, call your HCP or call back. Recommendations were based on caller information and is not a diagnosis. Verified and reviewed all triage information with caller. Reason for Disposition ??? Pain also in shoulder(s) or arm(s) or jaw Protocols used: CHEST PAIN-A-OH * Telephone Encounter - Dea Cox - 06/19/2023 3:16 PM CDT Symptom: Chest Pain - Adult Outcome: Warm transfer to an emergent RN NOW! Reason: Heaviness on chest The caller accepted this outcome documented in this encounter Plan of Treatment Upcoming Encounters Date Type Department Care Team (Late st Contact Info) Description 10/07/2024 3:00 PM GROCERY ASSOCIATE Office Visit [facility] Medical [facility] [place] [address] [place] [address] Bianka Oneill, [facility] [address] [place] [address] documented as of this encounter Goals Goal Patient Goal Type Associated Problems Recent Progress Patient-Stated? Author just want to feel normal Behavioral Health On track(2023 4:08 PM GROCERY ASSOCIATE) Yes Che Dickerson, PALEOLOGY TEACHER Note: Goal/Objective: Decrease anxious and depressive symptoms. Anticipated Time Frame for Goal Completion: 6 months Goal Reviewed with: patient Readiness to change: Ready to change Department associated with goal: [facility] BEHAVIORAL HEALTH SERVICES Steps to achieve goal: [...] documented as of this encounter Care Teams Manufacturing Team Member Relationship Specialty Start Date End Date Bianka Oneill PAC [address] [place] [address] PCP - General Physician Canvas Marker 08/18/22 documented as of this encounter
--- OUTSIDE RECORDS SUMMARY | 2024-09-22 20:28 | XMS_ITS | Encounter Summary ---
Author Organization [facility] Address [address] [place] [address] Phone Care Team Providers Care Regulatory Internship Name Role Phone Bianka Oneill Primary Care Provider + Suresh Gleason MD Unavailable [phone] Reason for Visit * Reason Comments Medication Refill Encounter Details Date Type Department Care Team (Late st Contact Info) Description 07/13/2023 Refill [facility] [address] [place] [address] Bianka Oneill PAC [address] [place] [address] Medication Refill Social History Tobacco Use Types [...] encounter Miscellaneous Notes * Telephone Encounter - Liset Fisher RN - 07/14/2023 8:18 AM CDT Name from pharmacy: FAMOTIDINE 20MG TABLETS Will file in chart as: famotidine (PEPCID) 20 MG Tablet The original prescription was reordered on 07/13/2023 by Bianka Oneill PAC. * Telephone Encounter - Milena Gonzalez RN - 07/13/2023 10:36 AM CDT duplicate documented in this encounter Plan of Treatment Upcoming Encounters Date Type Department Care Team (Late st Contact Info) Description 10/07/2024 3:00 PM DYNAMIC ETCHING PROCESSOR Office Visit [facility] Medical [facility] [place] [address] [place] [address] Bianka Oneill PAC [address] [place] [address] documented as of this encounter Goals Goal Patient Goal Type Associated Problems Recent Progress Patient-Stated? Author just want to feel normal Behavioral Health On track(2023 4:08 PM DYNAMIC ETCHING PROCESSOR) Yes Che Dickerson, DIE REPAIRER TRIMMER DIES Note: Goal/Objective: Decrease anxious and depressive symptoms. Anticipated Time Frame for Goal Completion: 6 months Goal Reviewed with: patient Readiness to change: Ready to change Department associated with goal: [facility] BEHAVIORAL HEALTH SERVICES Steps to achieve [...] documented as of this encounter Care Teams Regulatory Internship Relationship Specialty Start Date End Date Bianka Oneill PAC [address] [place] [address] PCP - General Physician Building Superintendent 08/18/22 Suresh Gleason MD [address] [address] Consulting Physician General Surgery 03/11/24 documented as of this encounter
--- OUTSIDE RECORDS SUMMARY | 2024-09-22 20:28 | XMS_ITS | Encounter Summary ---
Author Organization [facility] Address [address] [place] [address] Phone Care Team Providers Care Director Of Strategic Communications Name Role Phone Bianka Oneill Primary Care Provider + Reason for Visit * Reason Onset Date Comments Letter for School/Work 03/06/2024 Encounter Details Date Type Department Care Team (Late st Contact Info) Description 03/06/2024 Telephone [facility] - General [facility] - [place] [address] [address] Suresh Gleason MD #[address] [address] Letter for School/Work Social History Tobacco Use Types Packs/Day Years [...] on file documented as of this encounter Miscellaneous Notes * Telephone Encounter - Abbey Interiano CMA - 03/06/2024 9:30 AM CDT Patient called into the office with the request of a letter for being off due to surgery with Dr. Gleason on 03/05/2024. 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 Patient's letter being sent via [employer]. documented in this encounter Plan of Treatment Upcoming Encounters Date Type Department Care Team (Late st Contact Info) Description 10/07/2024 3:00 PM REINFORCING METAL WORKER Office Visit [facility] #2 [place] [address] Bianka Oneill, [facility] [address] [place] [address] documented as of this encounter Goals Goal Patient Goal Type Associated Problems Recent Progress Patient-Stated? Author just want to feel normal Behavioral Health On track(2023 4:08 PM REINFORCING METAL WORKER) Yes Che Dickerson, BARREL MARKER Note: Goal/Objective: Decrease anxious and depressive symptoms. Anticipated Time Frame for Goal Completion: 6 months Goal Reviewed with: patient Readiness to change: Ready to change Department associated with goal: [facility] Steps to achieve goal: [...] documented as of this encounter Care Teams Director Of Strategic Communications Relationship Specialty Start Date End Date Bianka Oneill PAC [address] [place] [address] PCP - General Physician Tank Setter 08/18/22 documented as of this encounter
--- OUTSIDE RECORDS SUMMARY | 2024-09-22 20:28 | XMS_ITS | Encounter Summary ---
Author Organization [facility] Address [address] [place] [address] Phone Care Team Providers Care Calender Machine Operator Helper Name Role Phone Bianka Oneill Primary Care Provider + Suresh Gleason MD Unavailable [phone] Encounter Details Date Type Department Care Team (Late st Contact Info) Description 10/05/2023 Behavioral Health Patient Survey [facility] [address] [place] [id number] Che Dickerson, [facility] [address] [place] [address] Social History Tobacco Use Types Packs/Day Years [...] 03/01/2023 Sexually Active Control Partners Comments Yes None Male Comments Yes Sex and Gender Information Value Date Recorded Sex Assigned at Not on file Legal Sex Female 8:55 PM CDT Gender Identity Not on file Sexual Orientation Not on file documented as of this encounter Plan of Treatment Upcoming Encounters Date Type Department Care Team (Late st Contact Info) Description 10/07/2024 3:00 PM MANAGER TITLE Office Visit [facility] - Family [facility] #[address] [place] [address] Bianka Oneill PAC [address] [place] [address] documented as of this encounter Goals Goal Patient Goal Type Associated Problems Recent Progress Patient-Stated? Author just want to feel normal Behavioral Health On track(2023 4:08 PM MANAGER TITLE) Yes Che Dickerson, SALES PLANNING ANALYST Note: Goal/Objective: Decrease anxious and depressive symptoms. Anticipated Time Frame for Goal Completion: 6 months Goal Reviewed with: patient Readiness to change: Ready to change Department associated with goal: [facility] BEHAVIORAL HEALTH SERVICES Steps to [...] documented as of this encounter Care Teams Calender Machine Operator Helper Relationship Specialty Start Date End Date Bianka Oneill PAC [address] [place] [address] PCP - General Physician Picking Table Worker 08/18/22 Suresh Gleason MD #[address] [place] [address] Consulting Physician General Surgery 03/11/24 documented as of this encounter
--- OUTSIDE RECORDS SUMMARY | 2024-09-22 20:28 | XMS_ITS | Encounter Summary ---
Author Organization [facility] Address [address] [place] [address] Phone Care Team Providers Care Water Pollution Specialist Name Role Phone Bianka Oneill Primary Care Provider + Reason for Visit * Reason Comments Anxiety * Auth/Cert (Routine) Specialty Diagnoses / Procedures Referred By Contac t Referred To Contact Referral ID Status Reason Start Date Expiration Date Visits Re quested Visits Authorized [id number] 1 1 Encounter Details Date Type Department Care Team ([facility] st Contact Info) Description 08/09/2023 8:30 AM MACHINE GROUP LEADER Telemedicine [facility] Behavioral Health Services [address] [place] [address] Che Dickerson, CUB REPORTER [address] [place] [address] Anxiety (Primary Dx) Discharge Disposition: Discharged to [...] Coronavirus/COVID-19? No / Unsure 07/26/2023 11:17 AM MACHINE GROUP LEADER documented as of this encounter Progress Notes * Che Dickerson, CUB REPORTER - 08/09/2023 8:30 AM CST Images from the original note were not included. [facility] BEHAVIORAL HE[facility] CLINICAL PROGRESS NOTE NAME: Annalise Vogt AGE: 18 y.o. DATE OF : 2005 DATE OF SERVICE: 08/09/2023 START TIME: 8:30am END TIME: 9:15am Patient was assessed via online video for [...] Ready to change Department associated with goal: [facility] BEHAVIORAL HE[facility] SERVICES Steps to [...] good news, but this is a stressor. Patient is concerned the tear inher hip is back and she is working in pain. Progress stressors with finances and mother. Challengedthoughts as appropriate and gain insight, as well as provide commitment of how to indentify these big emotions. Provided Support and encouragement. [...] for support and guidance. CHE DICKERSON LCSW INE GROUP LEADER documented in this encounter Plan of Treatment Upcoming Encounters Date Type Department Care Team (Late st Contact Info) Description 10/07/2024 3:00 PM MACHINE GROUP LEADER Office Visit [facility] [place] [address] Bianka Oneill, [facility] [address] [place] [address] documented as of this encounter Goals Goal Patient Goal Type Associated Problems Recent Progress Patient-Stated? Author just want to feel normal Behavioral Health On track(2023 4:08 PM MACHINE GROUP LEADER) Yes Che Dickerson LCSW Note: Goal/Objective: Decrease anxious and depressive symptoms. Anticipated Time Frame for Goal Completion: 6 months Goal Reviewed with: patient Readiness to change: Ready to change Department associated with goal: [facility] BEHAVIORAL HEALTH SERVICES Steps to [...] documented as of this encounter Care Teams Water Pollution Specialist Relationship Specialty Start Date End Date Bianka Oneill PAC [address] [place] [address] PCP - General Physician Catering Service Manager 08/18/22 documented as of this encounter
--- OUTSIDE RECORDS SUMMARY | 2024-09-22 20:28 | XMS_ITS | Encounter Summary ---
Author Organization [facility] [employer] Care Team Providers Care Roundhouse Supervisor Name Role Phone Bianka Oneill Primary Care Provider + Encounter Details Date Type Department Care Team (Latest Contact Info) Description 07/06/2023 Travel Social History Tobacco Use Types Packs/Day [...] st Contact Info) Description 10/07/2024 3:00 PM ELECTRON BEAM WELDER Office Visit [facility] Medical [facility] [address] [place] [address] Bianka Oneill, PAC [address] [place] [address] documented as of this encounter Goals Goal Patient Goal Type Associated Problems Recent Progress Patient-Stated? Author just want to feel normal Behavioral Health On track(2023 4:08 PM ELECTRON BEAM WELDER) Yes Che Dickerson, FARMWORKER [employer] Note: Goal/Objective: Decrease anxious and depressive symptoms. Anticipated Time Frame for Goal Completion: 6 months Goal Reviewed with: patient Readiness to change: Ready to change Department associated with goal: [facility] BEHAVIORAL HEALTH SERVICES Steps [...] documented as of this encounter Care Teams Roundhouse Supervisor Relationship Specialty Start Date End Date Bianka Oneill PAC [address] [place] [address] PCP - General Physician Quality Control Tech Raw Materials 08/18/22 documented as of this encounter
--- OUTSIDE RECORDS SUMMARY | 2024-09-22 20:28 | XMS_ITS | Clinical Summary ---
Author Organization [facility] Address [address] [place] [address] Phone Care Team Providers Care Tissue Rewinder Name Role Phone Bianka Oneill Primary Care Provider + Suresh Gleason MD Unavailable Allergies No known active allergies Medications Docusate Calcium (STOOL SOFTENER PO) Take by mouth. Active famotidine (PEPCID) 20 MG Tablet TAKE 1 TABLET BY MOUTH TWICE DAILY 60 Tablet 3 07/13/2023 Active ondansetron (ZOFRAN-ODT) 4 MG TABLET DISPERSIBLE Take 1 Tablet by mouth every 8 hours as needed for Nausea - 1st line. 30 Tablet 10/04/2023 Active Norethindrone, Contraceptive, 0.35 MG Tablet Take 1 Tablet by mouth daily. 02/15/2024 Active venlafaxine (EFFEXOR-XR) 37.5 MG CAPSULE SR 24 HRIndications:An xiety Take 1 Capsule by mouth daily. 90 Capsule 07/04/2024 Active colestipol (COLESTID) 1 GM Tablet Take 1 Tablet by mouth 2 times daily. 60 Tablet 07/04/2024 Active Active Problems Problem Noted Date Diagnosed Date Iron deficiency anemia 01/26/2023 Menorrhagia with regular cycle Encounters Date Type Department Care Team Description 07/16/2024 [facility] [address] [place] [address] Bianka Oneill PAC Appointment; Sinus Problem 07/04/2024 3:00 PM CDT Office Visit [facility] Medical Group - Family [facility] [address] [place] [address] Bianka Oneill PAC Anxiety (Primary Dx); Screening for diabetes mellitus; Anemia, unspecified type; Diarrhea, unspecified type Discharge Disposition: Discharged to home or Selfcare 07/04/2024 Travel 07/02/2024 Travel from Last 3 Months Immunizations Immunization Administration Dates Next Due DTAP VACCINE 06/23/2005, 5,2004,05/31 HEP B/HIB Combined Vaccine 2004 Hepatitis B Vaccine, Pediatric/adolescent 2004,2004 Hib (HbOC) 06/23/2005,2004,2004 Hib Vaccine,unspecified Formulation 06/23/2005,1 09/26/2003 Inactivated Polio Vaccine 06/23/2005,2004, 2004 Influenza Vaccine, Quadrivalent, PF 08/13/2021 Influenza Vaccine,unspecifie d Formulation 08/13/2021,06/23/2005,2004,09/22 MMR Vaccine 2005 Meningococcal MCV4O 03/24/2020 Pneumococcal Vaccine Peds - 7 Valent 02/2005,2004,2004,05/31 TB Skin Test 01/13/2023 TDAP Vaccine 01/13/2023 Tuberculin Skin Test; Purifi ed Protein Derivative Solutiol 01/13/2023,02/16/2022,02/09/2022 Varicella Vaccine Live 01/20/2023,2005 Family History Medical History Relation Name Comments Diabetes Father Job Hypertension Father Job Hypertension Mother Nathalie Relation Name Status Comments Father Job Alive Mother Nathalie Alive Social History Tobacco Use Types Packs/Day Years Used Date Smoking Tobacco: Never Smokeless Tobacco: Never Tobacco Cessation:Counseling Given: No Alcohol Use Standard Drinks/Week Comments Never 0 (1 standard drink = 0.6 oz pur e alcohol) PHQ-2 Answer Date Recorded Total Score - Questions 1-9 5 06/18 Education Answer Date Recorded What is the highest level of school you have completed or the highest degree you have received? 12th grade 03/01/2023 Sexually Active Control Partners Comments Yes Oral Contraceptive Male Comments No Sex and Gender Information Value Date Recorded Sex Assigned at Not on file Legal Sex Female 8:55 PM CDT Gender Identity Not on file Sexual Orientation Not on file Last Filed Vital Signs Vital Sign Reading Time Taken Comments Blood Pressure 118/70 07/04/2024 3:13 PM CDT Pulse 81 07/04/2024 3:13 PM CDT Temperature 36.2 ??C (97.2 ??F) 07/04/2024 3:13 PM CD T Respiratory Rate 16 07/04/2024 3:13 PM CDT Oxygen Saturation 99% 07/04/2024 3:13 PM CDT Inhaled Oxygen Concentration - - Weight 99.3 kg (219 lb) 07/04/2024 3:13 PM CDT Height 160 cm (5' 3 ) 07/04/2024 3:13 PM CDT Body Mass Index 38.79 07/04/2024 3:13 PM CDT Plan of Treatment Upcoming Encounters Date Type Department Care Team (Late st Contact Info) Description 10/07/2024 3:00 PM ANALYSIS ANALYST Office Visit [facility] - [facility] [address] [place] [address] Bianka Oneill, PAC [address] [place] [address] Health Maintenance Due Date Last Done Comments Hepatitis C Virus (HCV) Screening 2004 Human Papillomavirus (HPV) Immunization (1 - 3-dose series) 2019 Meningococcal B Immunization (1 of 2 - Standard) 2020 Influenza Immunization (#1) 05/19/202407/20, 08/13/2021, 06/23/2005, Additional history exists SARS-COV-2 Immunization ( season) 2024 02/01/2022, 09/03/2021, 08/13/2021 DTaP/Tdap/Td Immunization (6 - Td or Tdap) 01/13/2033 01/13/2023, 06/23/2005, 2004, Additional history exists Respiratory Syncytial Virus (RSV) Immunization (Adult) (1 - 1-dose 75+ series) 2079 Hepatitis B Immunization Completed , 2004, 2004 Measles Mumps Rubella (MMR) Immunization Discontinued 2005 Pneumococcal Immunization Combined Aged Out 06/23/2005, 2004, 2004, Additional history exists No longer eligible based on patient's age to complete this topic Polio (IPV) Immunization Discontinued , 2004, 2004 Meningococcal Immunization (ACWY) Completed 03/24/2020 Varicella Immunization Discontinued 01/20/2023, 2004 Rotavirus Immunization Aged Out No lo nger eligible based on patient's age to complete this topic Goals Goal Patient Goal Type Associated Problems Recent Progress Patient-Stated? Author just want to feel normal Behavioral Health On track(2023 4:08 PM ANALYSIS ANALYST) Yes hCe Dickerson, SCRAP BUNCH MAKER Note: Goal/Objective: Decrease anxious and depressive symptoms. Anticipated Time Frame for Goal Completion: 6 months Goal Reviewed with: patient Readiness to change: Ready to change Department associated with goal: [facility]AV[facility]AL HE[facility] Steps to achieve [...] and or cope with anxiety and depression. Procedures Procedure Name Priority Date/Time Associated Diagnosis Comments CBC WITH AUTO DIFFERENTIAL Routine 07/04/2024 4:11 PM CDT Anxiety Anemia, unspecified type THYROID STIMULATING HORMONE (TSH) Routine 07/04/2024 4:11 PM CDT Anxiety FOLIC ACID (FOLATE) Routine 07/04/2024 4 :11 PM CDT Anemia, unspecified type VITAMIN B12 Routine 07/04/2024 4:11 PM CDT Anemia, unspecified type IRON,TRANSFERN,CALC.T IBC,%SAT Routine 07/04/2024 4:11 PM CDT Anemia, unspecified type FERRITIN Routine 07/04/2024 4:11 PM CDT Anemia, unspecified type COMPLETE BLOOD COUNT (CBC) WITH DIFF Routine 07/04/2024 4:11 PM CDT Anxiety Anemia, unspecified type CMP (COMPREHENSIVE METABOLIC PANEL) Routine 07/04/2024 4:11 PM CDT Anxiety HEMOGLOBIN A1C W/ ESTIMATED GLUCOSE Routine 07/04/2024 4:11 PM CDT Screening for diabetes mellitus from Last 3 Months Results * (ABNORMAL) IRON,TRANSFERN,CALC.TIBC,%SAT (07/04/2024 4:11 PM CDT) IRON 32 25 - 156 mcg/dL 07/04/2024 5:30 PM CDT [facility] TRANSFERRIN 366 180 - 382 mg/dL 07/04/2024 5:30 PM CDT [facility] TIBC, CALCULATED 458 265 - 497 mcg/dL 07/04/2024 5:30 PM CDT [facility] % SATURATION * 7(L) 15 - 62 % 07/04/2024 5:30 PM CDT [facility] Blood Venipuncture / Unknown 07/04/2024 4:11 PM CDT 07/04/2024 5:01 PM CDT us Bianka Oneill PAC CHEMISTRY ORDERABLES Fin al Result Performing Organization Address City/[facility]/ZIP Co de Phone Number [facility] [address] [place] [address] * HEMOGLOBIN A1C W/ ESTIMATED GLUCOSE (07/04/2024 4:11 PM CDT) Pathologist [facility] HGB-A1C 5.5 4.0 - 6.0 % 07/04/2024 5:27 PM CDT [facility] Est Average Glucose 111.2 mg/dL 07/04/2024 5:27 PM CDT [facility] Blood Venipuncture / Unknown 07/04/2024 4:11 PM CDT 07/04/2024 5:01 PM CDT Narrative [facility] - 07/04/2024 5:27 PM CDT HEMOGLOBIN A1C: DIABETIC PATIENTS: WELL-CONTROLLED: ?? 6.2 - 7.0 INTERMEDIATE WELL-CONTROLLED: ??7.0 - 9.0 POORLY-CONTROLLED: ??>9.0 Bianka Oneill PAC CHEMISTRY ORDERABLES Fin al Result Performing Organization Address [facility] Co de Phone Number [facility] [address] [place] [address] * (ABNORMAL) CBC WITH AUTO DIFFERENTIAL (07/04/2024 4:11 PM CDT) Pathologist [facility] WBC 6.97 4.00 - 12.00 10(3)/mcL 07/04/2024 5:27 PM CDT [facility] RBC 5.29 3.80 - 5.30 10(6)/mcL 07/04/2024 5:27 PM CDT [facility] HEMOGLOBIN (HGB) 11.2(L) 12.0 - 15.8 g/dL 07/04/2024 5:27 PM CDT [facility] HEMATOCRIT (HCT) 37.6 36.0 - 47.0 % 07/04/2024 5:27 PM CDT [facility] MCV 71.1(L) 82.0 - 96.0 fL 07/04/2024 5:27 PM CDT [facility] MCH 21.2(L) 26.0 - 34.0 pg 07/04/2024 5:27 PM CDT [facility] MCHC 29.8(L) 31.0 - 36.0 g/dL 07/04/2024 5:27 PM CDT [facility] PLATELET COUNT 307 140 - 440 10(3)/mcL 07/04/2024 5:27 PM CDT [facility] RDW 19.5(H) 11.8 - 15.5 % 07/04/2024 5:27 PM CDT [facility] MPV 10.6 9.7 - 12.4 fL 07/04/2024 5:27 PM CDT [facility] NEUTROPHILS 61.8 47.0 - 73.0 % 07/04/2024 5:27 PM CDT [facility] LYMPHOCYTES 31.1 18.0 - 42.0 % 07/04/2024 5:27 PM CDT [facility] MONOCYTES 5.5 4.0 - 12.0 % 07/04/2024 5:27 PM CDT [facility] EOSINOPHILS 0.9 0.0 - 5.0 % 07/04/2024 5:27 PM CDT [facility] BASOPHILS 0.7 0.0 - 1.0 % 07/04/2024 5:27 PM CDT [facility] ABSOLUTE NEUTROPHILS 4.31 1.60 - 7.70 10(3)/mcL 07/04/2024 5:27 PM CDT [facility] ABSOLUTE LYMPHOCYTES 2.17 1.30 - 3.20 10(3)/mcL 07/04/2024 5:27 PM CDT [facility] ABSOLUTE MONOCYTES 0.38 0.20 - 1.00 10(3)/mcL 07/04/2024 5:27 PM CDT [facility] ABSOLUTE EOSINOPHIL 0.06 0.00 - 0.40 10(3)/mcL 07/04/2024 5:27 PM CDT [facility] ABSOLUTE BASOPHILS 0.05 0.00 - 0.10 10(3)/mcL 07/04/2024 5:27 PM CDT [facility] NRBC PER 100 WBC 0 07/04/20 5:27 PM CDT [facility] RESULTS ARE CONSISTENT WITH PERIPHERAL SMEAR REVIEW Yes 07/04/2024 5:27 PM CDT [facility] RBC MORPHOLOGY CONSISTENT WITH INDICES Yes 07/04/2024 5:27 PM CDT [facility] Blood Venipuncture / Unknown 07/04/2024 4:11 PM CDT 07/04/2024 5:02 PM CDT Bianka Oneill PAC HEMATOLOGY ORDERABLES Fi nal Result [facility] [address] [place] [address] * VITAMIN B12 (07/04/2024 4:11 PM CDT) Pathologist [facility] VITAMIN B12 483 213 - 816 pg/mL 07/04/2024 5:58 PM CDT [facility] Blood Venipuncture / Unknown 07/04/2024 4:11 PM CDT 07/04/2024 5:02 PM CDT Bianka Oneill PAC CHEMISTRY ORDERABLES Fin al Result [facility] [address] [place] [address] * THYROID STIMULATING HORMONE (TSH) (07/04/2024 4:11 PM CDT) TSH 1.882 0.300 - 5.000 mIU/L 07/04/2024 5:45 PM CDT [facility] Blood Venipuncture / Unknown 07/04/2024 4:11 PM CDT 07/04/2024 5:01 PM CDT Bianka Oneill PAC CHEMISTRY ORDERABLES Fin al Result [facility] [address] [place] [address] * FOLIC ACID (FOLATE) (07/04/2024 4:11 PM CDT) FOLATE 16.3 7.0 - 31.4 ng/mL 07/04/2024 5:58 PM CDT [facility] IS THE PATIENT REQUIRED TO BE FASTING? No 07/04/2024 5:58 PM CDT [facility] Blood Venipuncture / Unknown 07/04/2024 4:11 PM CDT 07/04/2024 5:02 PM CDT Bianka Oneill PAC CHEMISTRY ORDERABLES Fin al Result Performing Organization Address City/[facility]/ZIP Co de Phone Number [facility] [address] [place] [address] * FERRITIN (07/04/2024 4:11 PM CDT) FERRITIN 5 5 - 204 ng/mL 07/04/2024 5:45 PM CDT [facility] Blood Venipuncture / Unknown 07/04/2024 4:11 PM CDT 07/04/2024 5:01 PM CDT Bianka Oneill PAC CHEMISTRY ORDERABLES Fin al Result [facility] [address] [place] [address] * CMP (COMPREHENSIVE METABOLIC PANEL) (07/04/2024 4:11 PM CDT) SODIUM 142 136 - 145 mmol/L 07/04/2024 5:30 PM CDT [facility] POTASSIUM 4.1 3.5 - 5.1 mmol/L 07/04/2024 5:30 PM CDT [facility] CHLORIDE 107 98 - 107 mmol/L 07/04/2024 5:30 PM CDT [facility] CO2, VENOUS 25 22 - 30 mmol/L 07/04/2024 5:30 PM CDT [facility] ANION GAP 14.1 <18.0 mmol/L 07/04/2024 5:30 PM CDT [facility] GLUCOSE 81 70 - 99 mg/dL 07/04/2024 5:30 PM CDT [facility] BUN 9 5 - 18 mg/dL 07/04/2024 5:30 PM CDT [facility] CREATININE, BLOOD 0.72 0.60 - 1.00 mg/dL 07/04/2024 5:30 PM CDT [facility] BUN/CREATININE RATIO 13 12 - 20 ratio 07/04/2024 5:30 PM CDT [facility] TOTAL PROTEIN 7.6 6.3 - 8.2 g/dL 07/04/2024 5:30 PM CDT [facility] ALBUMIN 4.5 3.5 - 5.0 g/dL 07/04/2024 5:30 PM CDT [facility] A/G RATIO 1.5 1.0 - 2.2 07/04/2024 5:30 PM CDT [facility] CALCIUM 9.7 8.7 - 10.5 mg/dL 07/04/2024 5:30 PM CDT [facility] T BILI 0.2 0.2 - 1.2 mg/dL 07/04/2024 5:30 PM CDT [facility] SGOT (AST) 19 5 - 34 U/L 07/04/2024 5:30 PM CDT [facility] SGPT (ALT) 16 0 - 55 U/L 07/04/2024 5:30 PM CDT [facility] ALKALINE PHOSPHATASE 99 40 - 150 U/L 07/04/2024 5:30 PM CDT [facility] IS THE PATIENT REQUIRED TO BE FASTING? No 07/04/2024 5:30 PM CDT [facility] GFR, ESTIMATED >60 >=60 07/04/2024 5:30 PM CDT [facility] Comment: Creatinine Clearance is the preferred criteria for selecting drug dose adjustments in renally impaired patients. ??The GFR is provided as additional pertinent clinical information. GFR is reported in mL/min/1.73 sq m. Calculation based on the Chronic Kidney Disease Epidemiology Collaboration (CKD- EPI) equation refit without adjustment for race. GFR, EST. >60 >=60 024 5:30 PM CDT [facility] GFR, EST. 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
--- OUTSIDE RECORDS SUMMARY | 2024-09-22 20:28 | XMS_ITS | Encounter Summary ---
Author Organization [facility] Address [address] [place] [address] Phone Care Team Providers Care Flooring Helper Name Role Phone Bianka Oneill PAC Primary Care Provider + uSresh Gleason MD Unavailable [phone] Encounter Details Date Type Department Care Team (Late st Contact Info) Description 09/04/2023 Telephone [facility] Oncology Services [address] [place] [address] Pepper Reyes Letitia, PAC [address] [place] [address] Social History Tobacco Use Types Packs/Day Years [...] encounter Miscellaneous Notes * Telephone Encounter - BenignoJulia Sher - 09/04/2023 2:20 PM CST Today's visit was cancelled as she is currently 19 weeks and will be followed by her primary care physician. She will follow up with our office on an as needed basis. SITTER documented in this encounter Plan of Treatment Upcoming Encounters Date Type Department Care Team (Late st Contact Info) Description 10/07/2024 3:00 PM BIRD SITTER Office Visit [facility] - [facility] [address] [place] [address] Bianka Oneill, PAC [address] [place] [address] documented as of this encounter Goals Goal Patient Goal Type Associated Problems Recent Progress Patient-Stated? Author just want to feel normal Behavioral Health On track(2023 4:08 PM BIRD SITTER) Yes Che Dickerson, SUPERVISOR WORD PROCESSING Note: Goal/Objective: Decrease anxious and depressive symptoms. Anticipated Time Frame for Goal Completion: 6 months Goal Reviewed with: patient Readiness to change: Ready to change Department associated with goal: [facility] Steps to [...] documented as of this encounter Care Teams Flooring Helper Relationship Specialty Start Date End Date Bianka Oneill PAC [address] [place] [address] PCP - General Physician Automotive Tire Tester 08/18/22 Suresh Gleason MD [address] [phone] Consulting Physician General Surgery 03/11/24 documented as of this encounter
--- OUTSIDE RECORDS SUMMARY | 2024-09-22 20:28 | XMS_ITS | Encounter Summary ---
Author Organization [facility] Address [address] [place] [address] Phone Care Team Providers Care Processor Solid Propellant Name Role Phone Bianka Oneill Primary Care Provider + Reason for Visit * Reason Comments Follow-up 3 mo fu Encounter Details Date Type Department Care Team (Late st Contact Info) Description 10/04/2023 3:15 PM CENTRAL SUPPLY TECH Office Visit [facility] Medical Group - Family Medicine [facility] [address] [place] [phone] Bianka Oneill PAC [address] [place] [address] Nausea and vomiting in (Primary Dx); Abscess; Skin lesion of back Discharge Disposition: Discharged to home or Selfcare Social History Tobacco Use Types Packs/Day Years Used Date Smoking Tobacco: Never Smokeless Tobacco: Never Tobacco Cessation:Counseling Given: Yes Alcohol Use Standard Drinks/Week Comments Never 0 [...] Sign Reading Time Taken Comments Blood Pressure 128/82 10/04/2023 3:15 PM CENTRAL SUPPLY TECH Pulse 77 10/04/2023 3:15 PM CENTRAL SUPPLY TECH Temperature 35.8 ??C (96.5 ??F) 10/04/2023 3:15 PM CS T Respiratory Rate - - Oxygen Saturation 99% 10/04/2023 3:15 PM CENTRAL SUPPLY TECH Inhaled Oxygen Concentration - - Weight 112 kg (247 lb) 10/04/2023 3:15 PM CENTRAL SUPPLY TECH Height 160 cm (5' 3 ) 10/04/2023 3:15 PM CENTRAL SUPPLY TECH Body Mass Index 43.75 10/04/2023 3:15 PM CENTRAL SUPPLY TECH documented in this encounter Functional Status * Question Answer Date of Assessment Author Little interest or pleasure in doing things Several days 10/04/2023 3:18 PM CENTRAL SUPPLY TECH Natalie Navarro MA Feeling down, depressed, or hopeless Several days 10/04/2023 3:18 PM CENTRAL SUPPLY TECH Natalie Navarro MA * Over the past 2 weeks, how often have you been bothered by any of the following problems? Question Answer Date of Assessment Author Patient Health Questionnaire -2 Score 2 10/04/2023 3:18 PM CENTRAL SUPPLY TECH Natalie Navarro MA documented as of this encounter Patient Instructions * Patient Instructions* Bianka Oneill PAC - 10/04/2023 3:15 PM CENTRAL SUPPLY TECH Check with ob if can take clindamycin Hida scan in RAL SUPPLY TECH RAL SUPPLY TECH documented in this encounter Progress Notes * Natalie Navarro MA - 10/04/2023 3:15 PM CST Annalise Vogt, 18 y.o., female is here for Follow-up (3 mo fu ) Medication Refills: Patient reports/denies need for medication refills. Orders Pended: no Requested Prescriptions No prescriptions requested or ordered in this encounter Home Medications Medication Sig Start Date End Date Taking? Authorizing Provider busPIRone (BUSPAR) 15 MG Tablet Take 0.5 Tablets by mouth 2 times daily. Patient not taking: Reported on 06/19/2023 05/05/23 Bianka Oneill PAC Docusate Calcium (STOOL SOFTENER PO) Take by mouth. Yes Provider, MD Debbie escitalopram (LEXAPRO) 20 MG Tablet TAKE 1 TABLET BY MOUTH DAILY Patient not taking: Reported on 10/04/2023 07/13/23 Bianka Oneill PAC famotidine (PEPCID) 20 MG Tablet TAKE 1 TABLET BY MOUTH TWICE DAILY 07/13/23 Yes Bianka Oneill PAC ferrous sulfate 325 (65 Fe) MG Tablet Take 1 Tablet by mouth 2 times daily. 02/27/23 Yes Bianka Oneill PAC ondansetron (ZOFRAN-ODT) 4 MG TABLET DISPERSIBLE Take 1 Tablet by mouth every 8 hours as needed forNausea - 1st line. 05/05/23 Yes Bianka Oneill PAC There are no discontinued medications. I have reviewed the home medication list with the patient and have reconciled discrepancies. The list is accurate to the best of my knowledge. Smoking Status: Social History Tobacco Use ??? Smoking status: Never ??? Smokeless tobacco: Never Vaping Use ??? Vaping Use: Former Substance Use Topics ??? Alcohol use: Never ??? Drug use: Never Smoking Cessation Counseling Given: n/a Health Care Maintenance: Health Maintenance Due Topic Date Due ??? Hepatitis C Virus (HCV) Screening Never done ??? Human Papillomavirus (HPV) Immunization (1 - 2-dose series) Never done ??? Meningococcal B Immunization (1 of 2 - Patient Seeks Protection) Never done ??? Influenza Immunization (1) 05/19/2023 ??? SARS-COV-2 Immunization ( season) 2023 Orders Pended: no The following BPA's have been addressed with the patient today: Flu RAL SUPPLY TECH * Bianka Oneill PAC - 10/04/2023 3:15 PM CST Subjective: Subjective Having nausea and occasional vomiting with currently 24 weeks, Had to wear heart monitor due to elevated heart rate 160, had elevated blood pressure Has appointment with OB at [place] has appointment on 10/10/23 with ob Having baby boy due January 2024 Given zoloft from OB has not started yet right axilla abscess, has history of MRSA On back has areas of blisters has been there for 2 years but now changing, left upper back, sometimes bleeds if scratch A few days before toi has pain inbetween shoulder blades, lasted few min Sometimes feels achy pain inbetween shoulder blades Review of Systems Respiratory: Negative for cough, chest tightness and shortness of breath. Cardiovascular: Positive for palpitations. Negative for chest pain. Gastrointestinal: Negative for abdominal pain, constipation and diarrhea. Genitourinary: Negative for difficulty urinating and dysuria. Neurological: Negative for dizziness and light-headedness. Psychiatric/Behavioral: The patient is nervous/anxious. Objective: Objective Physical Exam Vitals reviewed. Constitutional: Appearance: Normal appearance. She is not ill-appearing. HENT: Head: Normocephalic and atraumatic. Cardiovascular: Rate and Rhythm: Normal rate. Pulmonary: Effort: Pulmonary effort is normal. No respiratory distress. Skin: General: Skin is warm. Neurological: Mental Status: She is alert. Psychiatric: Mood and Affect: Mood normal. right axilla with 6 cm area of erythema, not fluctuant Left upper back 3 cm skin lesion, raised, flesh colored with center area dark brown. Assessment and Plan See Diagnoses, Orders, Follow-up, and Instructions .Diagnoses and all orders for this visit: Nausea and vomiting in Abscess Skin lesion of back Other orders - ondansetron (ZOFRAN-ODT) 4 MG TABLET DISPERSIBLE; Take 1 Tablet by mouth every 8 hours as needed for Nausea - 1st line. Continue with zofran as needed for nausea Can use bactroban ointment, consider clindamycin if no improvements Suggest consult with general surgeon Will follow up with OB about treatment options if no improvements RAL SUPPLY TECH documented in this encounter Plan of Treatment Upcoming Encounters Date Type Department Care Team (Late st Contact Info) Description 10/07/2024 3:00 PM CENTRAL SUPPLY TECH Office Visit [facility] - Family [facility] [address] [place] [address] Bianka Oneill PAC [address] [place] [address] documented as of this encounter Goals Goal Patient Goal Type Associated Problems Recent Progress Patient-Stated? Author just want to feel normal Behavioral Health On track(2023 4:08 PM CENTRAL SUPPLY TECH) Yes Che Dickerson, ENGINEERING EQUIPMENT OPERATOR Note: Goal/Objective: Decrease anxious and depressive symptoms. Anticipated Time Frame for Goal Completion: 6 months Goal Reviewed with: patient Readiness to change: Ready to change Department associated with goal: [facility] Steps to achieve [...] as of this encounter Visit Diagnoses Diagnosis Nausea and vomiting in - Primary Unspecified vomiting of , unspecified as to episode of care Abscess Cellulitis and abscess of unspecified site Skin lesion of back Unspecified disorder of skin and subcutaneous tissue documented in this encounter Additional Health Concerns Infection Onset Date Last Indicated Resolved Time MRSA 03/23/2023 03/23/2023 Assessment Noted Time PHQ-9 Depression Total Score: 0 05/29/20 23 10:33 AM CDT documented as of this encounter Care Teams Processor Solid Propellant Relationship Specialty Start Date End Date Bianka Oneill PAC [address] [place] [address] PCP - General Physician [employer] Pe Teacher 08/18/22 documented as of this encounter
--- OUTSIDE RECORDS SUMMARY | 2024-09-22 20:28 | XMS_ITS | Encounter Summary ---
Author Organization [facility] [employer] Care Team Providers Care Reinforcing Iron Worker Helper Name Role Phone Bianka Oneill Primary Care Provider + Encounter Details Date Type Department Care Team (Latest Contact Info) Description 10/05/2023 Travel Social History Tobacco Use Types Packs/Day [...] st Contact Info) Description 10/07/2024 3:00 PM PHYSICS DEPARTMENT CHAIR Office Visit [facility] Medical Group - Family Medicine [facility] [address] [place] [phone] Bianka Oneill PAC [address] [place] [address] documented as of this encounter Goals Goal Patient Goal Type Associated Problems Recent Progress Patient-Stated? Author just want to feel normal Behavioral Health On track(2023 4:08 PM PHYSICS DEPARTMENT CHAIR) Yes Che Dickerson, ANNUAL GIVING MANAGER Note: Goal/Objective: Decrease anxious and depressive symptoms. [...] documented as of this encounter Care Teams Reinforcing Iron Worker Helper Relationship Specialty Start Date End Date Bianka Oneill PAC [address] [place] [address] PCP - General Physician Mail Caller 08/18/22 documented as of this encounter
--- OUTSIDE RECORDS SUMMARY | 2024-09-22 20:28 | XMS_ITS | Encounter Summary ---
Author Organization [facility] [employer] Care Team Providers Care Human Factors Advisor Lead Name Role Phone Bianka Oneill Primary Care Provider + Suresh Gleason MD Unavailable Encounter Details Date Type Department Care Team (Latest Contact Info) Description 03/29/2024 Travel Social History Tobacco Use Types Packs/Day [...] st Contact Info) Description 10/07/2024 3:00 PM SAS STATISTICAL PROGRAMMER Office Visit [facility] Medical [facility] - Family Medicine [facility] [address] [place] [address] Bianka Oneill PAC [address] [place] [address] documented as of this encounter Goals Goal Patient Goal Type Associated Problems Recent Progress Patient-Stated? Author just want to feel normal Behavioral Health On track(2023 4:08 PM SAS STATISTICAL PROGRAMMER) Yes Che Dickerson, TANK HOUSE OPERATOR HELPER Note: Goal/Objective: Decrease anxious and depressive symptoms. Anticipated Time Frame for Goal Completion: 6 months Goal Reviewed with: patient Readiness to change: Ready to change Department associated with goal: [facility] HE[facility] SERVICES Steps to [...] documented as of this encounter Care Teams Human Factors Advisor Lead Relationship Specialty Start Date End Date Bianka Oneill PAC [address] [place] [address] PCP - General Physician Dietitian Teacher 08/18/22 Suresh Gleason MD [address] [phone] Consulting Physician General Surgery 03/11/24 documented as of this encounter
--- OUTSIDE RECORDS SUMMARY | 2024-09-22 20:28 | XMS_ITS | Encounter Summary ---
Author Organization [facility] [employer] Care Team Providers Care Ship Captain Name Role Phone Bianka Oneill Primary Care Provider + Encounter Details Date Type Department Care Team (Latest Contact Info) Description 06/23/2023 Travel Social History Tobacco Use Types Packs/Day [...] suspected to have Coronavirus/COVID-19? No / Unsure 06/23/2023 8:59 AM CDT documented as of this encounter Plan of Treatment Upcoming Encounters Date Type Department Care Team (Late st Contact Info) Description 10/07/2024 3:00 PM MANAGER HELPDESK Office Visit [facility] Medical [facility] [address] [place] [address] Bianka Oneill, PAC [address] [place] [address] documented as of this encounter Goals Goal Patient Goal Type Associated Problems Recent Progress Patient-Stated? Author just want to feel normal Behavioral Health On track(2023 4:08 PM MANAGER HELPDESK) Yes Che Dickerson, SENIOR INTERNET SALES CONSULTANT Note: Goal/Objective: Decrease anxious and depressive symptoms. Anticipated Time Frame for Goal Completion: 6 months Goal Reviewed with: patient Readiness to change: Ready to change Department associated with goal: [facility] BE[facility]AVIORAL HE[facility] SERVICES Steps to [...] documented as of this encounter Care Teams Ship Captain Relationship Specialty Start Date End Date Bianka Oneill PAC [address] [place] [address] PCP - General Physician Feather Stitcher 08/18/22 documented as of this encounter
--- OUTSIDE RECORDS SUMMARY | 2024-09-22 20:28 | XMS_ITS | Encounter Summary ---
Author Organization [facility] Address [address] [place] [address] Phone Care Team Providers Care Engine Pilot Name Role Phone Bianka Oneill Primary Care Provider + Suresh Gleason MD Unavailable [phone] Reason for Visit * Reason Comments Surgical Follow-up Lap joe would like lesion looked at Encounter Details Date Type Department Care Team (Late st Contact Info) Description 03/27/2024 11:00 AM CDT Office Visit [facility] Medical Group - General Surgery - [place] [address] [address] Suresh Gleason MD [address] [address] History of laparoscopic cholecystectomy (Primary Dx) Discharge Disposition: Discharged to home [...] Sign Reading Time Taken Comments Blood Pressure 132/84 03/27/2024 11:18 AM CDT Pulse 61 03/27/2024 11:18 AM CDT Temperature 36.2 ??C (97.2 ??F) 03/27/2024 11:18 AM C DT Respiratory Rate 16 03/27/2024 11:18 AM CDT Oxygen Saturation 100% 03/27/2024 11:18 AM CDT Inhaled Oxygen Concentration - - Weight 97.5 kg (215 lb) 03/27/2024 11:18 AM CDT Height 160 cm (5' 3 ) 03/27/2024 11:18 AM CDT Body Mass Index 38.09 03/27/2024 11:18 AM CDT documented in this encounter Patient Instructions * Patient Instructions* Suresh Gleason MD - 03/27/2024 11:00 AM CDT FINAL DIAGNOSIS Gallbladder, cholecystectomy: - Chronic cholecystitis - Cholesterolosis documented in this encounter Progress Notes * Suresh Gleason MD - 03/27/2024 11:00 AM CDT Annalise Vogt POSTOPERATIVE EVALUATION DOS: 03/27/2024 SUBJECTIVE Patient is seen in the office today S/P Laparoscopic cholecystectomy . She is progressing well without complaints. Pain decreasing. Denies constipation, diarrhea, or food intolerances. OBJECTIVE BP 132/84 (BP Location: Right Arm, BP Position: Sitting, BP Cuff Size: Regular) Pulse 61 Temp 97.2 ??F (36.2 ??C) (Temporal) Resp 16 Ht 5' 3 (1.6 m) Wt 215 lb (97.5 kg) LMP 04/22/2023 (Approximate) SpO2 100% BMI 38.09 kg/m?? Exam: Alert, no acute distress Incision(s): Healing well w/o erythema, induration or drainage. ASSESSMENT: S/p Laparoscopic cholecystectomy done on 03/05/2024 due to symptomatic gallbladder disease. PLAN Pathology: Discussed results and implications. FINAL DIAGNOSIS Gallbladder, cholecystectomy: - Chronic cholecystitis - Cholesterolosis Activity: May resume full activity. Follow-up: As needed. School/work release: Not needed. I encouraged the patient to contact the office for any questions or problems. Patient verbalized understanding. Documentation for this visit was completed using a template. I have seen and examined the patient. Everything documented was personally performed at this visit with the necessary additions, deletionsand changes made as appropriate. By: Suresh Gleason MD, 03/27/2024, 11:23 AM CDT documented in this encounter Plan of Treatment Upcoming Encounters Date Type Department Care Team (Late st Contact Info) Description 10/07/2024 3:00 PM TYPE CASTER Office Visit [facility] [address] [place] [address] Bianka Oneill [facility] [address] [place] [address] documented as of this encounter Goals Goal Patient Goal Type Associated Problems Recent Progress Patient-Stated? Author just want to feel normal Behavioral Health On track(2023 4:08 PM TYPE CASTER) Yes Che Dickerson, CNA GNA Note: Goal/Objective: Decrease anxious and depressive symptoms. Anticipated Time Frame for Goal Completion: 6 months Goal Reviewed with: patient Readiness to change: Ready to change Department associated with goal: [facility] Steps to achieve [...] as of this encounter Visit Diagnoses Diagnosis History of laparoscopic cholecystectomy- Primary documented in this encounter Additional Health Concerns Infection Onset Date Last Indicated Resolved Time MRSA 03/23/2023 03/23/2023 Assessment Noted Time PHQ-9 Depression Total Score: 0 05/29/20 23 10:33 AM CDT documented as of this encounter Care Teams Engine Pilot Relationship Specialty Start Date End Date Bianka Oneill PAC [address] [place] [address] PCP - General Physician Supervisor Ornamental Ironworking 08/18/22 Suresh Gleason MD [address] [phone] Consulting Physician General Surgery 03/11/24 documented as of this encounter
--- OUTSIDE RECORDS SUMMARY | 2024-09-22 20:28 | XMS_ITS | Encounter Summary ---
Author Organization [facility] Address [address] [place] [address] Phone Care Team Providers Care Outside Installer Apprentice Name Role Phone Bianka Oneill Primary Care Provider + Reason for Visit * Auth/Cert (Routine) Specialty Diagnoses / Procedures Referred By Contac t Referred To Contact Diagnoses GALLBLADDER DISEASE Procedures LAPAROSCOPIC CHOLECYSTECTOMY WITH / WITHOUT CHOLANGIOGRAMS Suresh Gleason MD [address] [address] Phone: tel: fax: Referral ID Status Reason Start Date Expiration Date Visits Re quested Visits Authorized [id number] 1 1 Encounter Details Date Type Department Care Team (Late st Contact Info) Description 03/05/2024 7:12 AM CDT - 03/05/2024 11:45 AM CDT Hospital Encounter [facility] Preop/Pacu II [address] [place] [address] Suresh Gleason MD #[address] [address] Discharge Disposition: Discharged to home or Selfcare [...] Sign Reading Time Taken Comments Blood Pressure 126/86 03/05/2024 11:05 AM CDT Pulse 60 03/05/2024 11:05 AM CDT Temperature 36.8 ??C (98.2 ??F) 03/05/2024 11:05 AM C DT Respiratory Rate 16 03/05/2024 11:05 AM CDT Oxygen Saturation 98% 03/05/2024 11:05 AM CDT Inhaled Oxygen Concentration - - Weight 96.9 kg (213 lb 9 oz) 03/05/2024 7:21 AM CDT Height 160 cm (5' 3 ) 03/05/2024 7:21 AM CDT Body Mass Index 37.83 03/05/2024 7:21 AM CDT documented in this encounter Discharge Instructions * Discharge Instructions* Stephanie Rodriguez, RN - 03/05/2024 9:47 AM CDT GENERAL GUIDELINES FOR MINIMIZING NAUSEA: Do not take pain medication on an empty stomach Eat small portions of foods because they are easier to digest and move through your stomach much faster. Be sure you are staying hydrated. Clear, cool beverages are recommended. Only take what you can tolerate. You might like trying clear soups, flavored gelatin, carbonated beverages, popsicles and ice cubes made of frozen drinks. Avoid the smells of cooking food, especially greasy ones, as the smells make make you nauseated. * Attachments The following attachments cannot be sent through Care Everywhere. * Minimally Invasive Cholecystectomy Care After [place] documented in this encounter Medications at Time of Discharge [...] mouth. 4 documented as of this encounter H&P Notes * Suresh Gleason MD - 03/05/2024 8:14 AM CDT Proceed to or for laparoscopic possible open cholecystectomy with ICG cholangiography. I reviewed with them the steps of surgery we discussed in detail the risks which include but are not limited bleeding, infection, injury to other structures, including common bile duct, bowel, etc.. Main benefits of surgery will be the removal of the gallbladder with the stones and hopefully that will relieve her symptoms although I can not guarantee that. The alternatives include observation. Source Note - Suresh Gleason MD - 02/28/2024 11:00 AM CDT HISTORY AND PHYSICAL Assessment: New consult for gallstones Anxiety Asthma Hx of gestational diabetes Obesity PLAN: I have personally reviewed and interpreted the report from the CT scan from [facility]. We will upload images to our system. I explained in detail to the patient as well as her mom the anatomyof the gallbladder as well as the pathophysiology of gallbladder disease in general. I think her history is good for gallbladder disease and I think she might benefit from laparoscopic possible open cholecystectomy with ICG cholangiography. I reviewed with them the steps of surgery we discussed in detail the risks which include but are not limited bleeding, infection, injury to other structures, including common bile duct, bowel, etc.. Main benefits of surgery will be the removal of the gallbladder with the stones and hopefully that will relieve her symptoms although I can not guarantee that. The alternatives include observation. Information booklet regarding cholecystectomy from the [employer] was also provided. Total time spent on this encounter on this date of service, including pre-visit review of separately obtained history, [id number] interaction performing medically appropriate physical exam, patientcounseling/education, interpretation of diagnostic results, care coordination and documentation was45 minutes. Subjective: HPI: Annalise Vogt is a 18 y.o. female who I was asked to see by Bianka Oneill, YARED for possible gallbladder disease. She is a very pleasant lady, she had a baby recently. 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 She has been having epigastric abdominal pain that radiates to her back for the last couple of months. Sometimes associated with greasy food intake but sometimes not. The pain comes and goes is not all the time. Sometimes associated with nausea but no emesis. She denies any history priorabdominal operations. She did visit [facility] ER and a CT scan was performed which showed cholelithiasis. She was sent to me for evaluation. She denies smoking, alcohol or illicit drug use. No Known Allergies Cannot display prior to admission medications because the patient has not been admitted in this contact. Current Outpatient Medications on File Prior to Visit Medication Sig Dispense Refill Docusate Calcium (STOOL SOFTENER PO) Take by mouth. escitalopram (Lexapro) 10 MG Tablet Take 10 mg by mouth daily. famotidine (PEPCID) 20 MG Tablet TAKE 1 TABLET BY MOUTH TWICE DAILY 60 Tablet 3 ferrous sulfate 325 (65 Fe) MG Tablet Take 1 Tablet by mouth 2 times daily. 60 Tablet 3 ondansetron (ZOFRAN-ODT) 4 MG TABLET DISPERSIBLE Take 1 Tablet by mouth every 8 hours as needed forNausea - 1st line. 30 Tablet 0 Vit-Fe Fumarate-FA ( VITAMINS PO) Take by mouth. No current facility-administered medications on file prior to visit. Past Medical History Positives Diagnosis Date Anxiety Asthma History of anemia as a child Past Surgical History: Procedure Laterality Date SECTION, CLASSIC 01/19/2024 Boy HIP ARTHROSCOPY 04/2023 Family History Problem Relation Age of Onset Hypertension Mother Hypertension Father Diabetes Father Social History Socioeconomic History Marital status: Single Spouse name: Not on file Number of children: Not on file Years of education: Not on file Highest education level: 12th grade Occupational History Not on file Tobacco Use Smoking status: Never Smokeless tobacco: Never Vaping Use Vaping status: Former Substance and Sexual Activity Alcohol use: Never Drug use: Never Sexual activity: Yes Partners: Male control/protection: None Other Topics Concern Not on file Social History Narrative Not on file Social Determinants of Health Financial Resource Needs: Not on file Food Insecurity Needs: Not on file Transportation Needs: Not on file Physical Activity: Not on file Stress: Not on file Social Integration: Not on file Intimate Partner Violence: Not on file Housing Stability: Not on file Review of Systems: Review of Systems Gastrointestinal: Positive for abdominal pain and nausea. All other systems reviewed and are negative. Pertinent items are noted in HPI. All other systems were reviewed and were negative. Objective: VITALS: BP 116/74 (BP Location: Right Arm, BP Position: Sitting, BP Cuff Size: Regular) Pulse 90 Temp 97.7 ??F (36.5 ??C) (Temporal) Ht 5' 3 (1.6 m) Wt (!) 241 lb (109.3 kg) LMP 04/22/2023(Approximate) SpO2 98% BMI 42.69 kg/m?? Physical Exam Vitals and nursing note reviewed. Constitutional: Appearance: She is obese. HENT: Head: Normocephalic and atraumatic. Right Ear: External ear normal. Left Ear: External ear normal. Nose: Nose normal. Mouth/Throat: Mouth: Mucous membranes are moist. Pharynx: Oropharynx is clear. Eyes: Extraocular Movements: Extraocular movements intact. Conjunctiva/sclera: Conjunctivae normal. Pupils: Pupils are equal, round, and reactive to light. Cardiovascular: Rate and Rhythm: Normal rate and regular rhythm. Pulses: Normal pulses. Heart sounds: Normal heart sounds. Pulmonary: Effort: Pulmonary effort is normal. Breath sounds: Normal breath sounds. Abdominal: General: Bowel sounds are normal. Palpations: Abdomen is soft. Tenderness: There is no abdominal tenderness. Hernia: No hernia is present. Musculoskeletal: General: Normal range of motion. Cervical back: Normal range of motion and neck supple. Skin: General: Skin is warm. Capillary Refill: Capillary refill takes less than 2 seconds. Neurological: General: No focal deficit present. Mental Status: She is alert and oriented to person, place, and time. Mental status is at baseline. Psychiatric: Mood and Affect: Mood normal. Behavior: Behavior normal. Thought Content: Thought content normal. Judgment: Judgment normal. Data Review: No results for input(s): ALBUMIN , TBIL , BILIRUBIN , ALKALINEPHO , SGOTAST , SGPTALT , TOTALPROTEIN in the last 72 hours. Lab Results Component Value Date WBC 6.08 02/24/2023 HEMOGLOBIN 11.9 (L) 02/24/2023 HEMATOCRIT 39.6 02/24/2023 PLATELETCNT 303 02/24/2023 CHOLESTEROL 171 08/18/2022 TRIGLYCRIDES 88 08/18/2022 HDLCHOLESTE 34.0 (L) 08/18/2022 LDL 119 08/18/2022 SGPTALT 16 04/17/2023 SGOTAST 15 04/17/2023 SODIUM 141 04/17/2023 POTASSIUM 4.0 04/17/2023 CHLORIDE 105 04/17/2023 CREATININE 0.53 (L) 04/17/2023 BUN 9 04/17/2023 CO2VEN 23 04/17/2023 TSH 2.990 08/18/2022 GLUCOSE 87 04/17/2023 I personally reviewed the above labs and radiological studies (images if available and reports), and agree with the radiologist unless stated above. By: Suresh Gleason MD, 02/28/2024, 11:46 AM CDT Primary Care Physician: Bianka Oneill, PAC documented in this encounter Nursing Notes * Jazmine Khan RN - 03/05/2024 9:24 AM CDT WHO Safety Checklist Team Debriefing completed. Additional information discussed during debrief, inrelation to patient specific assessment, includes blood loss, glycemic control, pain management, and venous thromboembolism prophylaxis, as needed. All members of the surgical team participated in the debriefing process, and each records information as applicable in their respective areas of documen tation.Specimen Transported to [facility] SE[facility] ROOM by JAZMINE KHAN RN. documented in this encounter OR Notes * OR Surgeon - Suresh Gleason MD - 03/05/2024 9:40 AM CDT Procedure Laparoscopic cholecystectomy Preoperative diagnosis Symptomatic gallbladder disease Postoperative diagnosis Same Anesthesia General and local, Marcaine 0.5% Surgeon Dr Gleason Intraoperative findings Distended gallbladder with some adhesions to the omentum Critical view of safety photodocumented Why the procedure was done This is a 18-year-old female that came to see me to the office with symptomatic gallbladder disease to gallstones. Risks, benefits and alternatives were discussed with the patient and she was in agreement to proceed to the operative room for laparoscopic possible open cholecystectomy. How the procedure was done The patient was brought to the operative room 2. She was placed supine on the operative table and she underwent general anesthetic. She did receive preoperative antibiotics. Her abdomen was prepped and draped in a sterile fashion and an appropriate time-out was performed. A Veress needle was placedon her right upper quadrant and pneumoperitoneum was achieved to a pressure of 15 mmHg. The Veress needle was removed and a 5 mm trocar was placed under direct vision with the camera. Initial inspection of the abdomen revealed no injury on entry. An additional 5 mm trocar was placed above the bellybutton a 12 mm trocar in the epigastric area and another 5 mm trocar in the right flank. All trocar sites were anesthetized with local anesthesia and trocars were placed under direct vision. The gallbladder was identified and retracted towards the right shoulder the infundibulum was retracted laterally, there were some adhesions between the omentum and the gallbladder that were divided with electrocautery. Calot's triangle was dissected using electrocautery after division of the peritoneum on top of the gallbladder, the critical view of safety was photodocumented. The cystic artery as well asthe cystic duct were clipped and divided. The gallbladder was removed from the gallbladder fossa using electrocautery and the gallbladder was placed in an Endo-Catch bag through the 12 mm trocar in the epigastric area. The 12 mm trocar was removed and the gallbladder was removed and sent to pathology for analysis. The rest of the trocars were removed under direct vision with the camera. Hemostasis was excellent. Surgical incisions were closed with interrupted 4 Monocryl suture and surgical gluewas applied. The patient tolerated the procedure well without any complications she was allowed to return to the recovery area in a stable condition. Needle and sponge counts were correct. Estimated blood loss 2 mL By: Suresh Gleason MD; 03/05/2024, 9:43 AM CDT documented in this encounter Miscellaneous Notes * Interdisciplinary - Stephanie Rodriguez RN - 03/05/2024 11:03 AM CDT Pt. Ready for D/C. D/C instructions given, all questions answered. No complaints, VSS. Pt. Instructed to turn newspaper correspondent light when dressed. Pt. To be wheeled out by RN, pt. To be driven home by family. Cynthia Rodriguez RN * Plan of Care - Stephanie Rodriguez RN - 03/05/2024 10:36 AM CDT Problem: Adult Inpatient Plan of Care Goal: Plan of Care Review Outcome: Outcome Achieved Flowsheets (Taken 03/05/2024 0715 by ELVIRA) Plan of Care Reviewed With: patient family Progress: progress toward functional goals as expected Today's Goal: to discharge home Outcome Evaluation: ready for or Does the patient need assistance with discharge and/or transitioning to the next level of care?: No, no needs anticipated Goal: Optimal Comfort and Wellbeing Outcome: Outcome Achieved Intervention: Monitor Pain and Promote Comfort Flowsheets (Taken 03/05/2024 6680 by MOO) Pain Management Interventions: quiet environment facilitated Intervention: Provide Person-Centered Care Flowsheets (Taken 03/05/2024 0713 by ELVIRA) Trust Relationship/Rapport: care explained choices provided Goal: Readiness for Transition of Care Outcome: Outcome Achieved Problem: Surgery Nonspecified Goal: Anesthesia/Sedation Recovery Outcome: Outcome Achieved * PatientPass Patient Instructions - Stephanie Rodriguez RN - 03/05/2024 9:48 AM CDT Images from the original note were not included. Patient Education Table of Contents Minimally Invasive Cholecystectomy, Care After To view videos and all your education online visit, [email or web address] or scan this QR code with your smartphone. Access to this content will in one year. Minimally Invasive Cholecystectomy, Care After What can I expect after the procedure? After the procedure, it is common to: Have pain at the areas of surgery. You will be given medicines for pain. Vomit or feel like you may vomit. Feel fullness in the belly (bloating) or have pain in the shoulder. This comes from the gas that was used during the surgery. Follow these instructions at home: Medicines Take ywcm-hfm-vzbotwk and prescription medicines only as told by your doctor. If you were prescribed an antibiotic medicine, take it as told by your doctor. Do not stop taking it even if you start to feel better. If told, take steps to prevent problems with pooping (constipation). You may need to: ? Drink enough fluid to keep your pee (urine) pale yellow. ? Take medicines. You will be told what medicines to take. ? Eat foods that are high in fiber. These include beans, whole grains, and fresh fruits and vegetables. ? Limit foods that are high in fat and sugar. These include fried or sweet foods. Ask your doctor if you should avoid driving or using machines while you are taking your medicine. Incision care Follow instructions from your doctor about how to take care of your cuts from surgery (incisions). Make sure you: ? Wash your hands with soap and water for at least 20 seconds before and after you change your bandage (dressing). If you cannot use soap and water, use hand detective chief. ? Change your bandage. ? Leave stitches (sutures) or skin glue in place for at least 2 weeks. ? Leave tape strips alone unless you are told to take them off. You may trim the edges of the tape strips if they curl up. Do not take baths, swim, or use a hot tub. Ask your doctor about taking showers or sponge baths. Check your incision area every day for signs of infection. Check for: ? More redness, swelling, or pain. ? Fluid or blood. ? Warmth. ? Pus or a bad smell. Activity Rest as told by your doctor. Do not do activities that require a lot of effort. Get up to take short walks every 1 to 2 hours. Ask for help if you feel weak or unsteady. Do not lift anything that is heavier than 10 lb (4.5 kg), or the limit that you are told. Do not play contact sports until your doctor says it is okay. Do not return to work or school until your doctor says it is okay. Return to your normal activities when your doctor says that it is safe. General instructions If you were given a sedative during your procedure, do not drive or use machines until your doctor says that it is safe. A sedative is a medicine that helps you relax. Keep all follow-up visits. Contact a doctor if: You get a rash. You have more redness, swelling, or pain around your incisions. You have fluid or blood coming from your incisions. Your incisions feel warm to the touch. You have pus or a bad smell coming from your incisions. You have a fever. One or more of your incisions breaks open. Get help right away if: You have trouble breathing. You have chest pain. You have pain that is getting worse in your shoulders. You faint or feel dizzy when you stand. You have very bad pain in your belly (abdomen). You feel like you may vomit or you vomit, and this lasts for more than one day. You have leg pain. These symptoms may be an emergency. Get help right away. Call 911. Do not wait to see if the symptoms will go away. Do not drive yourself to the hospital. Summary After your surgery, it is common to have pain at the areas of surgery. You may also vomit or feel fullness in the belly. Follow your doctor's instructions about medicine, activity restrictions, and caring for your surgery areas. Do not do activities that require a lot of effort. Contact a doctor if you have a fever or other signs of infection, such as more redness, swelling, or pain around your incisions. Get help right away if you have chest pain, increasing pain in the shoulders, or trouble breathing. This information is not intended to replace advice given to you by your health care provider. Make sure you discuss any questions you have with your health care provider. Document Released: 2009-06-13 Document Updated: 2022-03-08 Document Reviewed: 2022-03-08 [employer] Patient Education ? 2023 [employer]. * Plan of Care - Moo Moy RN - 03/05/2024 9:11 AM CDT Patient will be discharged from PACU when criteria has been met. * Plan of Care - Elvira Arechiga RN - 03/05/2024 7:16 AM CDT Problem: Adult Inpatient Plan of Care Goal: Plan of Care Review Outcome: Ongoing (see interventions/notes) Flowsheets (Taken 03/05/2024714) Plan of Care Reviewed With: patient family Progress: progress toward functional goals as expected Today's Goal: to discharge home Outcome Evaluation: ready for or Does the patient need assistance with discharge and/or transitioning to the next level of care?: No, no needs anticipated Goal: Optimal Comfort and Wellbeing Outcome: Ongoing (see interventions/notes) Intervention: Provide Person-Centered Care Flowsheets (Taken 03/05/2024714) Trust Relationship/Rapport: care explained choices provided Goal: Readiness for Transition of Care Outcome: Ongoing (see interventions/notes) Intervention: Mutually Develop Transition Plan Flowsheets (Taken 03/05/2024 0715) Readmission Within the Last 30 Days: no previous admission in last 30 days Problem: Surgery Nonspecified Goal: Anesthesia/Sedation Recovery Outcome: Ongoing (see interventions/notes) Intervention: Optimize Anesthesia Recovery Flowsheets (Taken 03/05/2024 0715) Safety Promotion/Fall Prevention: nonskid shoes/slippers when out of bed low bed * Interdisciplinary - Kaitlin Mathis RN - 03/01/2024 12:38 PM CDT Patient denies testing positive for COVID in the past 90 days No current COVID symptoms No COVID test needed *If you experience any signs or symptoms of illness prior to your scheduled procedure or if you can???t keep your procedural appointment, please call the doctor who is doing your procedure. * Jhoana - Kaitlin Mathis RN - 03/01/2024 12:38 PM CDT [facility] ADULT TEACHING Patient Name: Annalise Vogt : 2005 CSN#: [id number] Person Educated Patient Ready to Learn Yes Teaching Method Phone The Day of Surgery: Call your physician if your physical condition changes (cold, fever, flu). Do not come to the hospital without first calling your physician. Do not eat or drink (no gum, mints, water etc.) unless instructed to do so for at least 8 hours prior to arrival to the hospital. Medications can be taken with a small sip of water. Do not drink any alcohol 24 hours prior to surgery if applicable. Do not smoke for 24 hrs prior to surgery if applicable. Bring CPAP/BIPAP if applicable. Take a shower or bath. Do not apply make-up Wear comfortable, loose fitting clothing Instruction to leave all jewelry at home including wedding/engagement rings or any body piercing jewelry. Leave all valuables at home. Children ages 17 and under must be accompanied by a parent or legal guardian in the hospital at alltimes. Follow your surgeon's instructions for arrival time. If you have questions concerning arrival time,call your surgeon's office. Detailed instructions given for arrival location and parking. Arrange for a responsible person to accompany you, drive you home and stay with you for the first 24 hours following your surgery. If you have not made these arrangements you may be at risk of your surgery being cancelled. Follow directions regarding medications to Take or Hold. It is very important to follow directions from your surgeon's office on Diabetic medication or Blood Thinners. Only 2 adults over the age of 16 will be allowed to accompany you to the [facility]. No children under theage of 16 will be allowed in the [facility] unless they are the patient. If the patient chooses to bring their children under the age of 16, an adult must accompany those children in the surgery waiting room and cannot leave them unattended. During the flu season: refer to the visitation restriction guidelines implemented during that season if applicable. Fall Prevention Teaching The Day of Surgery: Your safety while you are in the hospital is very important to us. Following surgery, you might be at increased risk for falling for several reasons: -The hospital environment is unfamiliar. It???s not the same as being at home -You may be weaker than you realize. -You may be connected to lines or equipment that can cause you to trip. -You may be on medications that make you drowsy or dizzy. We know this can happen especially with pain medication and anesthesia. We want to partner with you in the hospital to make sure you are safe -Please do not feel hesitant to ask for help while in the hospital. You will - need extra help untilyou get stronger especially with walking and using the bathroom. -Pay close attention to what the doctors and nurses tell you about your risk of falling. -A fall can mean a longer hospital stay. Also, injuries from a fall can affect your health for the rest of your life. Some things the nurses may do to keep you safe are: -Have you use the call light for help whenever you get out of bed. -Wear non-skid slippers to keep you from slipping on the floors -Use a special belt that wraps around your waist so we can help steady you when you walk -Activate an alarm on your bed so we know if you are getting up in case you forget to use your calllight -Stay in the bathroom with you in case you become dizzy or light headed Patient Response: Verbalizes Understanding Patient assessed for speech language pathology assistant during the preop interview and appropriate interventions taken if applicable. documented in this encounter Plan of Treatment Upcoming Encounters Date Type Department Care Team (Late st Contact Info) Description 10/07/2024 3:00 PM LINEMAN A CLASS Office Visit [facility] Medical [facility] [address] [place] [address] Bianka Oneill, PAC [address] [place] [address] documented as of this encounter Goals Goal Patient Goal Type Associated Problems Recent Progress Patient-Stated? Author just want to feel normal Behavioral Health On track(2023 4:08 PM LINEMAN A CLASS) Yes Che Dickerson, GAS ANALYST Note: Goal/Objective: Decrease anxious and depressive [...] Procedure Name Priority Date/Time Associated Diagnosis Comments LAPAROSCOPIC CHOLECYSTECTOMY WITH / WITHOUT CHOLANGIOGRAMS 03/05/2024 8:10 AM CDT GALLBLADDER DISEASE Special Needs 5' 3 215# PATHOLOGY SURGICAL Routine 03/05/2024 8: 09 AM CDT POCT URINE HCG () Routine 03/05/2024 7:20 AM CDT documented in this encounter Results * Pathology Surgical (03/05/2024 8:09 AM CDT) Case Report Surgical Pathology Report ? Case: [id number] ? Authorizing Provider: ??Suresh Gleason, ??Collected: ? 03/05/2024 08:09 AM ? MD ? Ordering Location: ? [facility] ? Received: ?03/05/2024 10:23 AM ? [facility] ? Main OR ? Pathologist: ? Luis Pedraza, ? Specimen: ?Gallbladder, GALLBLADDER ? 03/06/2024 7:59 AM CDT [facility] FINAL DIAGNOSIS Gallbladder, cholecystectomy: - Chronic cholecystitis - Cholesterolosis 03/06/2024 7:59 AM CDT [facility] Pre-Operative Diagnosis GALLBLADDER DISEASE 03/06/2024 7:59 AM CDT [facility] Gross Description A. GALLBLADDER The specimen presents in a single formalin container for gross and microscopic examination, labeled with the patient's name, Annalise Vogt, and designated as gallbladder. In formalin is an intact gallbladder that measures 7.5 x 3.0 x 2.3 cm. The serosal surfaces are smooth, pink-claros and glistening. The cystic duct and neck are stapled closed. Cut section reveals a red orange viscous bile. There are no calculi present within the specimen. Mucosal surfaces are red-brown and the gallbladder wall measures up to 0.2 cm in greatest thickness. Logistics System Engineer sample of the cystic duct and neck along with the body and fundus are submitted in cassette A1. /sb Total time of fixation is 13 hours, 37 minutes. 03/06/2024 7:59 AM CDT [facility] Microscopic Description There are no obvious stones in the lumen of the gallbladder or in the container in which it is received. Logistics System Engineer sections of the wall show benign-appearing biliary epithelium with Rokitansky Aschoff sinuses and subepithelial foamy macrophages. 03/06/2024 7:59 AM CDT [facility] Tissue GALLBLADDER STRUCTURE / Unknown 03/05/2024 8:09 AM CDT 03/05/2024 10:23 AM CDT us Suresh Gleason MD PATHOLOGY/CYTOLOGY OR DERABLES Final Result [facility] [address] [place] [address] * POCT Urine HCG () (03/05/2024 7:20 AM CDT) POC URINE Negative POC URINE CONTROL News Agent Pass Urine 03/05/2024 7:20 AM CDT Suresh Gleason MD POINT OF CARE TESTING (MANUAL) Final Result documented in this encounter Visit Diagnoses Diagnosis S/P laparoscopic cholecystectomy- Primary Other postprocedural status documented in this encounter Administered Medications Inactive Administered Medications - up to 3 most recent administrations Medication Order MAR Action Action Date Dose Rate Site diphenhydrAMINE (BENADRYL) injection 25 mg 25 mg, Intravenous, ONCE, 1 dose, On Mon03/05/24 at 1000, PACU (I & II) Given 03/05/2024 9:36 AM CDT 25 mg DIPHENHYDRAMINE HCL 50 MG/ML IJ SOLN 1 dose, Starting on Mon03/05/24 at 0936, Until Mon03/05/24 at 1350, Created by cabinet override fentaNYL (PF) (SUBLIMAZE) injection 50 mcg 50 mcg, Intravenous, EVERY 10 MIN PRN, Starting on Mon03/05/24 at 0845, Until Mon03/05/24 at 1144, Moderate pain or more severe pain if patient requests, Severe pain, 25mcg moderate pain (4-6)/ 50mcg severe pain (7-10), Every 5-15 minutes prn to maximum of 200-400 mcg., PACU (I & II) Given 03/05/2024 9:49 AM CDT 50 mcg HYDROcodone-acetaminophen (NORCO) 5-325 MG per tablet 1-2 Tablet 1-2 Tablet, Oral, EVERY 4 HOURS PRN, Starting on Mon03/05/24 at 0943, Until Mon03/05/24 at 1350, Moderate pain or more severe pain if patient requests, Maximum dose of acetaminophen is 4000 mg from all sources in 24 hours.If pain not effectively managed, then contact provider to discuss possibly 1) adding scheduled opioid dosing or non-opioid pain treatments, 2) increasing dosage, or 3) changing to STRATEGIC ALLIANCES MANAGER. Give 1 Tablet for moderate pain rating of 4-6 Give 2 Tablets for severe pain rating 7-10 Given 03/05/2024 10:27 AM CDT 1 Tablet HYDROCODONE-ACETAMINOPHEN 5-325 MG PO TABS 1 dose, Starting on Mon03/05/24 at 1025, Until Mon03/05/24 at 1350, Created by cabinet override ketorolac (TORADOL) injection 30 mg 30 mg, Intravenous, ONCE, 1 dose, On Mon03/05/24 at 1030, PACU (I & II) Given 03/05/2024 9:47 AM CDT 30 mg KETOROLAC TROMETHAMINE 30 MG/ML IJ SOLN 1 dose, Starting on Mon03/05/24 at 0940, Until Mon03/05/24 at 1350, Created by cabinet override lactated ringers infusion at 20 mL/hr, Intravenous, CONTINUOUS, Starting on Mon03/05/24 at 0800, Until Mon03/05/24 at 1350, PRE-OP (SURGERY) New Bag 03/05/2024 9:26 AM CDT 20 mL/hr New Bag 03/05/2024 7:33 AM CDT 20 mL/hr ondansetron (ZOFRAN) injection 4 mg 4 mg, Intravenous, EVERY 12 HOURS PRN, Starting on Mon03/05/24 at 0845, Until Mon03/05/24 at 1350, Nausea - 1st line, First Line Antiemetic, PACU (I & II) documented in this encounter Active and Recently Administered Medications Times are shown in CDT. Scheduled Medication Order 03/03/2024 03/04/2024 03/05/2024 cefOXitin (MEFOXIN) injection 2 g (COMPLETED) 2 g, Intravenous, ONCE, 1 dose, On Mon03/05/24 at 0800, Administer over 5 Minutes, INTRA-OP, Indications: Perioperative Pharmacoprophylaxis 0844 (Given - Provid er: Harry Guzman MD) diphenhydrAMINE (BENADRYL) injection 25 mg (COMPLETED) 25 mg, Intravenous, ONCE, 1 dose, On Mon03/05/24 at 1000, PACU (I & II) 0936 (Given - Provid er: Moo Moy RN) ketorolac (TORADOL) injection 30 mg (COMPLETED) 30 mg, Intravenous, ONCE, 1 dose, On Mon03/05/24 at 1030, PACU (I & II) 0947 (Given - Provid er: Moo Moy RN) Continuous Medication Order 03/03/2024 03/04/2024 03/05/2024 lactated ringers infusion at 20 mL/hr, Intravenous, CONTINUOUS, Starting on Mon03/05/24 at 0800, Until Mon03/05/24 at 1350, PRE-OP (SURGERY) 0733 (New Bag - Prov ider: Elvira Arechiga RN)0830 (Continued by Anesthesia - Provider: Harry Guzman MD)0926 (New Bag - Provider: Harry Guzman MD)1003 (Stopped - Provider: Moo Moy RN) PRN Medication Order 03/03/2024 03/04/2024 03/05/2024 bupivacaine (MARCAINE) 0.5 % injection (CANCELED) ONCE (in OR), Starting on Mon03/05/24 at 0921, Until Mon03/05/24 at 0931, INTRA-OP 0921 (Given - Provid er: Suresh Gleason MD) fentaNYL (PF) (SUBLIMAZE) injection 50 mcg 50 mcg, Intravenous, EVERY 10 MIN PRN, Starting on Mon03/05/24 at 0845, Until Mon03/05/24 at 1144, Moderate pain or more severe pain if patient requests, Severe pain, 25mcg moderate pain (4-6)/ 50mcg severe pain (7-10), Every 5-15 minutes prn to maximum of 200-400 mcg., PACU (I & II) 0949 (Given - Provid er: Moo Moy RN) HYDROcodone-acetaminophen (NORCO) 5-325 MG per tablet 1-2 Tablet 1-2 Tablet, Oral, EVERY 4 HOURS PRN, Starting on Mon03/05/24 at 0943, Until Mon03/05/24 at 1350, Moderate pain or more severe pain if patient requests, Maximum dose of acetaminophen is 4000 mg from all sources in 24 hours.If pain not effectively managed, then contact provider to discuss possibly 1) adding scheduled opioid dosing or non-opioid pain treatments, 2) increasing dosage, or 3) changing to STRATEGIC ALLIANCES MANAGER. Give 1 Tablet for moderate pain rating of 4-6 Give 2 Tablets for severe pain rating 7-10 1027 (Given - Provid er: Stephanie Rodriguez, RN) ondansetron (ZOFRAN) injection 4 mg 4 mg, Intravenous, EVERY 12 HOURS PRN, Starting on Mon03/05/24 at 0845, Until Mon03/05/24 at 1350, Nausea - 1st line, First Line Antiemetic, PACU (I & II) No Frequency Medication Order 03/03/2024 03/04/2024 03/05/2024 DIPHENHYDRAMINE HCL 50 MG/ML IJ SOLN 1 dose, Starting on Mon03/05/24 at 0936, Until Mon03/05/24 at 1350, Created by cabinet override HYDROCODONE-ACETAMINOPHEN 5-325 MG PO TABS 1 dose, Starting on Mon03/05/24 at 1025, Until Mon03/05/24 at 1350, Created by cabinet override KETOROLAC TROMETHAMINE 30 MG/ML IJ SOLN 1 dose, Starting on Mon03/05/24 at 0940, Until Mon03/05/24 at 1350, Created by cabinet override documented in this encounter Additional Health Concerns Infection Onset Date Last Indicated Resolved Time MRSA 03/23/2023 03/23/2023 Assessment Noted Time PHQ-9 Depression Total Score: 0 05/29/20 23 10:33 AM CDT documented as of this encounter Care Teams Outside Installer Apprentice Relationship Specialty Start Date End Date Bianka Oneill PAC [address] [place] [address] PCP - General Physician Metal Coater 08/18/22 documented as of this encounter
--- OUTSIDE RECORDS SUMMARY | 2024-09-22 20:28 | XMS_ITS | Encounter Summary ---
Author Organization [facility] [employer] Care Team Providers Care Extracorporeal Circulation Specialist Name Role Phone Bianka Oneill Primary Care Provider + Encounter Details Date Type Department Care Team (Latest Contact Info) Description 06/22/2023 Travel Social History Tobacco Use Types Packs/Day [...] suspected to have Coronavirus/COVID-19? No / Unsure 06/22/2023 3:47 PM CDT documented as of this encounter Plan of Treatment Upcoming Encounters Date Type Department Care Team (Late st Contact Info) Description 10/07/2024 3:00 PM GUZZLER BUILDER Office Visit [facility] Medical [facility] [address] [place] [address] Bianka Oneill, PAC [address] [place] [address] documented as of this encounter Goals Goal Patient Goal Type Associated Problems Recent Progress Patient-Stated? Author just want to feel normal Behavioral Health On track(2023 4:08 PM GUZZLER BUILDER) Yes Che Dickerson, BOTANY TEACHER Note: Goal/Objective: Decrease anxious and depressive symptoms. Anticipated Time Frame for Goal Completion: 6 months Goal Reviewed with: patient Readiness to change: Ready to change Department associated with goal: [facility] Steps to achieve goal: [...] documented as of this encounter Care Teams Extracorporeal Circulation Specialist Relationship Specialty Start Date End Date Bianka Oneill PAC [address] [place] [address] PCP - General Physician Industrial Economics Teacher 08/18/22 documented as of this encounter
--- OUTSIDE RECORDS SUMMARY | 2024-09-22 20:28 | XMS_ITS | Encounter Summary ---
Author Organization [facility] [employer] Care Team Providers Care Office Chair Assembler Name Role Phone Binaka Oneill Primary Care Provider + Encounter Details Date Type Department Care Team (Latest Contact Info) Description 03/01/2024 Travel Social History Tobacco Use Types Packs/Day [...] st Contact Info) Description 10/07/2024 3:00 PM PUBLIC POLICY MEDIATOR Office Visit [facility] Medical Group - Family Medicine [facility] [address] [place] [phone] Bianka Oneill PAC [address] [place] [address] documented as of this encounter Goals Goal Patient Goal Type Associated Problems Recent Progress Patient-Stated? Author just want to feel normal Behavioral Health On track(2023 4:08 PM PUBLIC POLICY MEDIATOR) Yes Che Dickerson, CASEY SAW OPERATOR Note: Goal/Objective: Decrease anxious and depressive symptoms. Anticipated Time Frame for Goal Completion: 6 months Goal Reviewed with: patient Readiness to change: Ready to change Department associated with goal: [facility] Steps to achieve goal: [...] documented as of this encounter Care Teams Office Chair Assembler Relationship Specialty Start Date End Date Bianka Oneill PAC [address] [place] [address] PCP - General Physician Laboratory Administrative Director 08/18/22 documented as of this encounter
--- OUTSIDE RECORDS SUMMARY | 2024-09-22 20:28 | XMS_ITS | Encounter Summary ---
Author Organization [facility] Address [address] [place] [address] Phone Care Team Providers Care Mobile Web Application Developer Name Role Phone Bianka Oneill Primary Care Provider + Reason for Referral * Other (Routine) - Closed Specialty Diagnoses / Procedures Referred By Contac t Referred To Contact General Surgery Diagnoses Gallbladder disease Procedures GENERAL SURGERY PROCEDURE LAP,CHOLECYSTECTOMY/GRAPH Suresh Gleason MD [address] [address] Phone: tel: fax: Referral ID Status Reason Start Date Expiration Date Visits Re quested Visits Authorized [id number] Closed 02/28/2024 1 1 Reason for Visit * Reason Comments New Patient Abdominal Pain Skin Lesion * Consult, Test & Initiate Treatment (Less Than 2 Weeks) - Closed Specialty Diagnoses / Procedures Referred By Contac t Referred To Contact Diagnoses Gallstones Bianka Oneill PAC [address] [place] [address] Phone: tel: fax: [facility] - [place] [address] [address] Phone: tel: fax: Referral ID Status Reason Start Date Expiration Date Visits Re quested Visits Authorized [id number] Closed 02/22/2024 1 1 Encounter Details Date Type Department Care Team (Late st Contact Info) Description 02/28/2024 11:00 AM CDT Office Visit [facility] - General [facility] - [place] [address] [phone] Bianka Oneill, YARED [address] [place] [address] Suresh Gleason MD [address] [address] Gallbladder disease (Primary Dx); Skin lesion; Gallstones Discharge Disposition: Discharged to home or Selfcare [...] Sign Reading Time Taken Comments Blood Pressure 116/74 02/28/2024 11:16 AM CDT Pulse 90 02/28/2024 11:16 AM CDT Temperature 36.5 ??C (97.7 ??F) 02/28/2024 11:16 AM C DT Respiratory Rate - - Oxygen Saturation 98% 02/28/2024 11:16 AM CDT Inhaled Oxygen Concentration - - Weight 109.3 kg (241 lb) 02/28/2024 11:16 AM CDT Height 160 cm (5' 3 ) 02/28/2024 11:16 AM CDT Body Mass Index 42.69 02/28/2024 11:16 AM CDT documented in this encounter Patient Instructions * Attachments The following attachments cannot be sent through Care Everywhere. * Minimally Invasive Cholecystectomy ([place] Citizen) documented in this encounter Progress Notes * Suresh Gleason MD - 02/28/2024 11:00 AM CDT HISTORY AND PHYSICAL Assessment: New consult for gallstones Anxiety Asthma Hx of gestational diabetes Obesity PLAN: I have personally reviewed and interpreted the report from the CT scan from [facility]. We will upload images to our [...] observation. Information booklet regarding cholecystectomy from the [employer] was also provided. Total time spent on this encounter on this date of service, including pre-visit review of separately obtained history, cdha-ob-oheb interaction performing medically appropriate physical exam, patientcounseling/education, interpretation of diagnostic results, care coordination and documentation was45 minutes. Subjective: HPI: Annalise Vogt is a 18 y.o. female who I was asked to see by YARED Sims for possible gallbladder disease. She is a very pleasant lady, she had a baby recently. 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 She has been having epigastric abdominal pain that radiates to her back for the last couple of months. Sometimes associated with greasy food intake but sometimes not. The pain comes and goes is not all the time. Sometimes associated with nausea but no emesis. She denies any history priorabdominal operations. She did visit [facility] ER and a CT scan was [...] Bianka Oneill, PAC documented in this encounter Plan of Treatment Upcoming Encounters Date Type Department Care Team (Late st Contact Info) Description 10/07/2024 3:00 PM BUCKLE SORTER Office Visit [facility] Medical Group - Family Medicine [facility] [address] [place] [address] Bianka Oneill, PAC [address] [place] [address] Scheduled Orders Name Type Priority Associated Diagnoses Orde r Schedule GENERAL SURGERY PROCEDURE Procedures Routine Gallbladder disease Expected: 02/28/2024, Expires: 04/28/2024 documented as of this encounter Goals Goal Patient Goal Type Associated Problems Recent Progress Patient-Stated? Author just want to feel normal Behavioral Health On track(2023 4:08 PM BUCKLE SORTER) Yes Che Dickerson, BUCKLE INSPECTOR Note: Goal/Objective: Decrease anxious and depressive symptoms. Anticipated Time Frame for Goal Completion: 6 months Goal Reviewed with: patient Readiness to change: Ready to change Department associated with goal: [facility] Steps [...] as of this encounter Visit Diagnoses Diagnosis Gallbladder disease- Primary Unspecified disorder of gallbladder Skin lesion Unspecified disorder of skin and subcutaneous tissue Gallstones Calculus of gallbladder without mention of cholecystitis or obstruction documented in this encounter Additional Health Concerns Infection Onset Date Last Indicated Resolved Time MRSA 03/23/2023 03/23/2023 Assessment Noted Time PHQ-9 Depression Total Score: 0 05/29/20 23 10:33 AM CDT documented as of this encounter Care Teams Mobile Web Application Developer Relationship Specialty Start Date End Date Bianka Oneill PAC [address] [place] [address] PCP - General Physician Manager Of Program 08/18/22 documented as of this encounter
--- OUTSIDE RECORDS SUMMARY | 2024-09-22 20:28 | XMS_ITS | Encounter Summary ---
Author Organization [facility] Address [address] [place] [address] Phone Care Team Providers Care Car Rental Agent Name Role Phone Bianka Oneill Primary Care Provider + Suresh Gleason MD Unavailable Reason for Visit * Reason Onset Date Comments Appointment 07/16/2024 Sinus Problem 07/16/2024 Encounter Details Date Type Department Care Team (Late st Contact Info) Description 07/16/2024 Nurse Triage [facility] [address] [place] [phone] Bianka Oneill, PAC [address] [place] [address] Appointment; Sinus Problem Social History Tobacco Use Types Packs/Day Years [...] encounter Miscellaneous Notes * Telephone Encounter - Nereida Parker RN - 07/16/2024 11:19 AM CDT SITUATION: Sinus problem BACKGROUND: Caller contacting PCP office. Symptoms started 07/14/2024 ASSESSMENT: Symptom Description / Location: Sinus pressure. Clear nasal drainage. My nose is running like crazy No sinus pain. Patient has trouble breathing through nose. Headache is reported. No vision changes. No ear pain or fullness. No redness or swelling around the sinus area. Puffy eyes from sneezing. Patient denies coughing. No nasal wash. Pain: 5/10 Fever: Denies fever. Treatment / Response: Tylenol and Motrin with some relief. RECOMMENDATION: Caller agreeable to disposition: See Today or Tomorrow. Care advice provided per triage guideline. Caller verbalized understanding. Due to office unavailability within disposition, advised for patient to be seen at prompt care or urgent care. Caller agreeable to prompt care/urgent care. Patient agreeable to [facility] [place] today. Discussed utilizing [employer] to: view test results - See care advice and disposition for Guideline. First positive answer recorded, all responses to prior questions were negative. If symptoms increase, change or if new symptoms develop, call your health care provider or call back. Recommendations were based on caller information and is not a diagnosis. Verified and reviewed all triage information with caller. Reason for Disposition Patient wants to be seen Protocols used: Sinus Pain or [id number]-SV * Telephone Encounter - Renan Singh - 07/16/2024 11:18 AM CDT Symptoms: Body Aches, Sinus Symptoms, Headache Outcome: Schedule an urgent appointment within same day Reason: Getting worse The caller accepted this outcome. Caller Denied: * Struggling for each breath (severe trouble breathing) * Sudden worst headache of life now * Acting confused * Trouble walking * Severe headache * Any trouble breathing through the mouth No same day appts available, connected pt to RN que documented in this encounter Plan of Treatment Upcoming Encounters Date Type Department Care Team (Late st Contact Info) Description 10/07/2024 3:00 PM TEST EQUIPMENT MECHANIC Office Visit [facility] Medical [facility] [address] [place] [address] Bianka Oneill, YARED [address] [place] [address] documented as of this encounter Goals Goal Patient Goal Type Associated Problems Recent Progress Patient-Stated? Author just want to feel normal Behavioral Health On track(2023 4:08 PM TEST EQUIPMENT MECHANIC) Yes Che Dickerson, LABOURERS Note: Goal/Objective: Decrease anxious and depressive symptoms. Anticipated Time Frame for Goal Completion: 6 months Goal Reviewed with: patient Readiness to change: Ready to change Department associated with goal: [facility] Steps to achieve [...] Assessment Noted Time PHQ-9 Depression Total Score: 5 07/04/20 24 3:16 PM CDT documented as of this encounter Care Teams Car Rental Agent Relationship Specialty Start Date End Date Bianka Oneill PAC [address] [place] [address] PCP - General Physician Head Of History 08/18/22 Suresh Gleason MD [address] [address] Consulting Physician General Surgery 03/11/24 documented as of this encounter
--- OUTSIDE RECORDS SUMMARY | 2024-09-22 20:28 | XMS_ITS | Encounter Summary ---
Author Organization [facility] [employer] Care Team Providers Care Seafood Harvester Name Role Phone Bianka Oneill Primary Care Provider + Suresh Gleason MD Unavailable Encounter Details Date Type Department Care Team (Latest Contact Info) Description 03/27/2024 Travel Social History Tobacco Use Types Packs/Day [...] st Contact Info) Description 10/07/2024 3:00 PM SAP BUSINESS OBJECTS CONSULTANT Office Visit [facility] Medical Group - Family Medicine [facility] [address] [place] [address] Bianka Oneill PAC [address] [place] [address] documented as of this encounter Goals Goal Patient Goal Type Associated Problems Recent Progress Patient-Stated? Author just want to feel normal Behavioral Health On track(2023 4:08 PM SAP BUSINESS OBJECTS CONSULTANT) Yes Che Dickerson, SAP BUSINESS OBJECTS CONSULTANT Note: Goal/Objective: Decrease anxious and depressive symptoms. Anticipated Time Frame for Goal Completion: 6 months Goal Reviewed with: patient Readiness to change: Ready to change Department associated with goal: [facility] Steps to [...] documented as of this encounter Care Teams Seafood Harvester Relationship Specialty Start Date End Date Bianka Oneill PAC [address] [place] [address] PCP - General Physician Solar Installer Pv 08/18/22 Suresh Gleason MD [address] [address] Consulting Physician General Surgery 03/11/24 documented as of this encounter
--- OUTSIDE RECORDS SUMMARY | 2024-09-22 20:28 | XMS_ITS | Encounter Summary ---
Author Organization [facility] [employer] Care Team Providers Care Nurse Orthopaedic Name Role Phone Bianka Oneill Primary Care Provider + Encounter Details Date Type Department Care Team (Latest Contact Info) Description 02/27/2024 Travel Social History Tobacco Use Types Packs/Day [...] st Contact Info) Description 10/07/2024 3:00 PM FISHING TOOL TECHNICIAN OIL WELL Office Visit [facility] Medical [facility] - Family Medicine [facility] [address] [place] [phone] Bianka Oneill PAC [address] [place] [address] documented as of this encounter Goals Goal Patient Goal Type Associated Problems Recent Progress Patient-Stated? Author just want to feel normal Behavioral Health On track(2023 4:08 PM FISHING TOOL TECHNICIAN OIL WELL) Yes Che Dickerson, COMMERCIAL LEASING AGENT Note: Goal/Objective: Decrease anxious and depressive symptoms. Anticipated Time Frame for Goal Completion: 6 months Goal Reviewed with: patient Readiness to change: Ready to change Department associated with goal: [facility] Steps to achieve [...] documented as of this encounter Care Teams Nurse Orthopaedic Relationship Specialty Start Date End Date Bianka Oneill PAC [address] [place] [address] PCP - General Physician Supervisor Print Line 08/18/22 documented as of this encounter
--- OUTSIDE RECORDS SUMMARY | 2024-09-22 20:28 | XMS_ITS | Encounter Summary ---
Author Organization [facility] [email or web address] Care Team Providers Care Emergency Medcl Emt Name Role Phone Bianka Oneill Primary Care Provider + Suresh Gleason MD Unavailable Encounter Details Date Type Department Care Team (Latest Contact Info) Description 07/02/2024 Travel Social History Tobacco Use Types Packs/Day [...] st Contact Info) Description 10/07/2024 3:00 PM PODIATRIC MEDICINE DOCTOR Office Visit [facility] - Family Medicine [facility] [address] [place] [address] Bianka Oneill PAC [address] [place] [address] documented as of this encounter Goals Goal Patient Goal Type Associated Problems Recent Progress Patient-Stated? Author just want to feel normal Behavioral Health On track(2023 4:08 PM PODIATRIC MEDICINE DOCTOR) Yes Che Dickerson, BLOW PIT OPERATOR Note: Goal/Objective: Decrease anxious and depressive symptoms. Anticipated Time Frame for Goal Completion: 6 months Goal Reviewed with: patient Readiness to change: Ready to change Department associated with goal: [facility] Steps to achieve [...] documented as of this encounter Care Teams Emergency Medcl Emt Relationship Specialty Start Date End Date Bianka Oneill PAC [address] [place] [address] PCP - General Physician Supervisor Lace Tearing 08/18/22 Suresh Gleason MD [address] [phone] Consulting Physician General Surgery 03/11/24 documented as of this encounter
--- OUTSIDE RECORDS SUMMARY | 2024-09-22 20:28 | XMS_ITS | Encounter Summary ---
Author Organization [facility] Address [address] [place] [address] Phone Care Team Providers Care Semiconductor Wafers Tester Name Role Phone Bianka Oneill Primary Care Provider + Suresh Gleason MD Unavailable Encounter Details Date Type Department Care Team (Late st Contact Info) Description 06/23/2023 Behavioral Health [facility] [address] [place] [phone] Che Dickerson, [facility] [address] [place] [address] Social History Tobacco Use Types Packs/Day Years [...] st Contact Info) Description 10/07/2024 3:00 PM CLAIMS VICE PRESIDENT Office Visit [facility] Medical [facility] [address] [place] [address] Bianka Oneill PAC [address] [place] [address] documented as of this encounter Goals Goal Patient Goal Type Associated Problems Recent Progress Patient-Stated? Author just want to feel normal Behavioral Health On track(2023 4:08 PM CLAIMS VICE PRESIDENT) Yes Che Dickerson, REGULATORY CONSULTANT Note: Goal/Objective: Decrease anxious and depressive symptoms. Anticipated Time Frame for Goal Completion: 6 months Goal Reviewed with: patient Readiness to change: Ready to change Department associated with goal: [facility] Steps [...] documented as of this encounter Care Teams Semiconductor Wafers Tester Relationship Specialty Start Date End Date Bianka Oneill [address] [place] [address] PCP - General Physician Superintendent Terminal 08/18/22 Suresh Gleason MD [address] [phone] Consulting Physician General Surgery 03/11/24 documented as of this encounter
--- OUTSIDE RECORDS SUMMARY | 2024-09-22 20:28 | XMS_ITS | Encounter Summary ---
Author Organization [facility] Address [address] [place] [place] [address] Phone Care Team Providers Care Grommet Machine Operator Name Role Phone Bianka Oneill Primary Care Provider + Reason for Visit * Reason Comments Anxiety * Auth/Cert (Routine) Specialty Diagnoses / Procedures Referred By Contac t Referred To Contact Referral ID Status Reason Start Date Expiration Date Visits Re quested Visits Authorized [id number] 1 1 Encounter Details Date Type Department Care Team (Latest Contact Info) Description 07/26/2023 11:15 AM HEAD TRIMMER Outpatient Clinic Visit [facility] [address] [place] [phone] Che Dickerson, DITCH WORKER [address] [place] [address] Anxiety (Primary Dx) Discharge Disposition: Discharged to [...] Coronavirus/COVID-19? No / Unsure 07/26/2023 11:17 AM HEAD TRIMMER documented as of this encounter Progress Notes * Che Dickerson, DITCH WORKER - 07/26/2023 11:15 AM CST Images from the original note were not included. [facility] BEHAVIORAL HEALTH CLINICAL PROGRESS NOTE NAME: Annalise Vogt AGE: 18 y.o. DATE OF : 2005 DATE OF SERVICE: 07/26/2023 START TIME: 11:15am END TIME: 12pm DIAGNOSIS: 1. Anxiety TREATMENT PLAN: Goals Addressed This Visit's Progress ??? just want to feel normal (pt-stated) Worsening Goal/Objective: Decrease anxious and depressive symptoms. Anticipated Time Frame for Goal Completion: 6 months Goal Reviewed with: patient Readiness to change: Ready to change Department associated with goal: [facility] Steps to achieve [...] good news, but this is a stressor. Boyfriend lost his job and thereare several financial stressors and job stressors that have inceased intrusive thoughts. Ortega does not have Si currently and is happy with her Discussed and Educated patient on CBT and [...] for support and guidance. CHE DICKERSON LCSW TRIMMER documented in this encounter Plan of Treatment Upcoming Encounters Date Type Department Care Team (Late st Contact Info) Description 10/07/2024 3:00 PM HEAD TRIMMER Office Visit [facility] [address] [place] [address] Bianka Oneill, [facility] [address] [place] [address] documented as of this encounter Goals Goal Patient Goal Type Associated Problems Recent Progress Patient-Stated? Author just want to feel normal Behavioral Health On track(2023 4:08 PM HEAD TRIMMER) Yes Che Dickerson LCSW Note: Goal/Objective: Decrease anxious and depressive symptoms. Anticipated Time Frame for Goal Completion: 6 months Goal Reviewed with: patient Readiness to change: Ready to change Department associated with goal: [facility] Steps to achieve [...] documented as of this encounter Care Teams Grommet Machine Operator Relationship Specialty Start Date End Date Bianka Oneill PAC [address] [place] [address] PCP - General Physician Bell Person 08/18/22 documented as of this encounter
--- OUTSIDE RECORDS SUMMARY | 2024-09-22 20:28 | XMS_ITS | Encounter Summary ---
Author Organization [facility] Address [address] [place] [address] Phone Care Team Providers Care Core Cutter Name Role Phone Bianka Oneill Primary Care Provider + Reason for Visit * Auth/Cert (Routine) Specialty Diagnoses / Procedures Referred By Contac t Referred To Contact Referral ID Status Reason Start Date Expiration Date Visits Re quested Visits Authorized [id number] 1 1 Encounter Details Date Type Department Care Team (Late st Contact Info) Description 10/05/2023 9:30 AM CUP MACHINE OPERATOR Telemedicine [facility] Behavioral Health Services [address] [place] [address] Che Dickerson, BELLOWS TESTER [address] [place] [address] Anxiety (Primary Dx) Discharge Disposition: Discharged to [...] on file documented as of this encounter Progress Notes * Che Dickerson, BELLOWS TESTER - 10/05/2023 9:30 AM CST Images from the original note were not included. [facility] BEHAVIORAL HEALTH CLINICAL PROGRESS NOTE NAME: Annalise Vogt AGE: 18 y.o. DATE OF : 2005 DATE OF SERVICE: 10/05/2023 START TIME: 9:30am END TIME: 10:15am Patient was assessed via online video for [...] Ready to change Department associated with goal: [facility] Steps to achieve [...] panic restlessness stress worry Annalise states that theres a lot of stressors. Processed these. Challenged thoughts as appropriateand gain insight, as well as provide commitment [...] treatment session. PROGRESS TOWARDS GOALS: Annalise reported no change in symptoms. MENTAL STATUS EXAM: Annalise is: cooperative open pleasant. Affect is: within normal range. Mood is: congruent to situation. There is: no current suicidal ideation.. There is: no current homicidal ideation.. TREATMENT RECOMMENDATIONS/FOLLOW UP: Recommendations for follow up treatment plan: Continue individual therapy as needed for support and guidance Continue family therapy as needed for support and guidance. CHE DICKERSON LCSW MACHINE OPERATOR documented in this encounter Plan of Treatment Upcoming Encounters Date Type Department Care Team (Late st Contact Info) Description 10/07/2024 3:00 PM CUP MACHINE OPERATOR Office Visit [facility] [address] [place] [address] Bianka Oneill, [facility] [address] [place] [address] documented as of this encounter Goals Goal Patient Goal Type Associated Problems Recent Progress Patient-Stated? Author just want to feel normal Behavioral Health On track(2023 4:08 PM CUP MACHINE OPERATOR) Yes Che Dickerson LCSW Note: Goal/Objective: Decrease anxious and depressive symptoms. Anticipated Time Frame for Goal Completion: 6 months Goal Reviewed with: patient Readiness to change: Ready to change Department associated with goal: [facility] Steps to achieve [...] documented as of this encounter Care Teams Core Cutter Relationship Specialty Start Date End Date Bianka Oneill PAC [address] [place] [address] PCP - General Physician R Developer 08/18/22 documented as of this encounter
--- OUTSIDE RECORDS SUMMARY | 2024-09-22 20:28 | XMS_ITS | Encounter Summary ---
Author Organization [facility] Address [address] [place] [address] Phone Care Team Providers Care Environmental Health Technologist Name Role Phone Bianka Oneill Primary Care Provider + Suresh Gleason MD Unavailable Reason for Visit * Reason Comments Follow-up 6 month follow upHad a baby five months ago and was on vitmains that she wants to see if she needs again like iron. Encounter Details Date Type Department Care Team (Late st Contact Info) Description 07/04/2024 3:00 PM CDT Office Visit [facility] - Family [facility] [address] [place] [address] Bianka Oneill PAC [address] [place] [address] Anxiety (Primary Dx); Screening for diabetes mellitus; [...] Mass Index 38.79 07/04/2024 3:13 PM CDT documented in this encounter Functional Status * Question Answer Date of Assessment Author Little interest or pleasure in doing things More than half the days 07/04/2024 3:16 PM CDT Mary Ordonez RN Feeling down, depressed, or hopeless Several days 07/04/2024 3:16 PM CDT Mary Ordonez RN * Over the past 2 weeks, how often have you been bothered by any of the following problems? Question Answer Date of Assessment Author Patient Health Questionnaire-2 Score 3 06/18 3:16 PM CDT Mary Ordonez RN documented as of this encounter Progress Notes * Kamille Galaviz MA - 07/04/2024 3:00 PM CDT Annalise Vogt, 19 y.o., female is here for Follow-up (6 month follow up/Had a baby five months ago and was on vitmains that she wants to see if she needs again like iron.) Medication Refills: Patient reports/denies need for medication refills. Orders Pended: no Requested Prescriptions No prescriptions requested or ordered in this encounter Home Medications Medication Sig Start Date End Date Taking? Authorizing Provider Docusate Calcium (STOOL SOFTENER PO) Take by mouth. Yes Debbie Khan MD escitalopram (Lexapro) 10 MG Tablet Take 10 mg by mouth daily. Patient not taking: Reported on 07/04/2024 Debbie Khan MD famotidine (PEPCID) 20 MG Tablet TAKE 1 TABLET BY MOUTH TWICE DAILY 07/13/23 Yes Bianka Oneill PAC ferrous sulfate 325 (65 Fe) MG Tablet Take 1 Tablet by mouth 2 times daily. Patient not taking: Reported on 07/04/2024 02/27/23 Bianka Oneill PAC glyBURIDE (DIABETA) 5 MG Tablet TAKE 1/2 TABLET BY MOUTH EVERY NIGHT AT BEDTIME Patient not taking: Reported on 07/04/2024 12/27/23 Debbie Khan MD Norethindrone, Contraceptive, 0.35 MG Tablet Take 1 Tablet by mouth daily. 02/15/24 Yes Debbie Khan MD ondansetron (ZOFRAN-ODT) 4 MG TABLET DISPERSIBLE Take 1 Tablet by mouth every 8 hours as needed forNausea - 1st line. 10/04/23 Yes Bianka Oneill PAC Vit-Fe Fumarate-FA ( VITAMINS PO) Take by mouth. Patient not taking: Reported on 07/04/2024 Debbie Khan MD There are no discontinued medications. I have reviewed the home medication list with the patient and have reconciled discrepancies. The list is accurate to the best of my knowledge. Smoking Status: Social History Tobacco Use Smoking status: Never Smokeless tobacco: Never Vaping Use Vaping status: Former Substance Use Topics Alcohol use: Never Drug use: Never Smoking Cessation Counseling Given: no Health Care Maintenance: Health Maintenance Due Topic Date Due Hepatitis C Virus (HCV) Screening Never done Human Papillomavirus (HPV) Immunization (1 - 3-dose series) Never done Meningococcal B Immunization (1 of 2 - Patient Seeks Protection) Never done Influenza Immunization (1) 05/19/2024 SARS-COV-2 Immunization ( season) 2024 Orders Pended: no The following BPA's have been addressed with the patient today: Flu SDOH * Kamille Galaviz MA - 07/04/2024 3:00 PM CDT Annalise screened for Social Determinants of Health and screened positive for Depression. Patient declined resources. * Mary Ordonze RN - 07/04/2024 3:00 PM CDT Annalise Vogt, 19 y.o., female is here for Follow-up (6 month follow up/Had a baby five months ago and was on vitmains that she wants to see if she needs again like iron.) Medication Refills: Patient reports/denies need for medication refills. Orders Pended: no Requested Prescriptions No prescriptions requested or ordered in this encounter Home Medications Medication Sig Start Date End Date Taking? Authorizing Provider Docusate Calcium (STOOL SOFTENER PO) Take by mouth. Yes Debbie Khan MD escitalopram (Lexapro) 10 MG Tablet Take 10 mg by mouth daily. Patient not taking: Reported on 07/04/2024 Debbie Khan MD famotidine (PEPCID) 20 MG Tablet TAKE 1 TABLET BY MOUTH TWICE DAILY 07/13/23 Yes Bianka Oneill PAC ferrous sulfate 325 (65 Fe) MG Tablet Take 1 Tablet by mouth 2 times daily. Patient not taking: Reported on 07/04/2024 02/27/23 Bianka Oneill PAC glyBURIDE (DIABETA) 5 MG Tablet TAKE 1/2 TABLET BY MOUTH EVERY NIGHT AT BEDTIME Patient not taking: Reported on 07/04/2024 12/27/23 Debbie Khan MD Norethindrone, Contraceptive, 0.35 MG Tablet Take 1 Tablet by mouth daily. 02/15/24 Yes Debbie Khan MD ondansetron (ZOFRAN-ODT) 4 MG TABLET DISPERSIBLE Take 1 Tablet by mouth every 8 hours as needed forNausea - 1st line. 10/04/23 Yes Bianka Oneill PAC Vit-Fe Fumarate-FA ( VITAMINS PO) Take by mouth. Patient not taking: Reported on 07/04/2024 Provider, MD Debbie There are no discontinued medications. I have reviewed the home medication list with the patient and have reconciled discrepancies. The list is accurate to the best of my knowledge. Smoking Status: Social History Tobacco Use Smoking status: Never Smokeless tobacco: Never Vaping Use Vaping status: Former Substance Use Topics Alcohol use: Never Drug use: Never Smoking Cessation Counseling Given: no Health Care Maintenance: Health Maintenance Due Topic Date Due Hepatitis C Virus (HCV) Screening Never done Human Papillomavirus (HPV) Immunization (1 - 3-dose series) Never done Meningococcal B Immunization (1 of 2 - Patient Seeks Protection) Never done Influenza Immunization (1) 05/19/2024 SARS-COV-2 Immunization () 05/19/2024 Orders Pended: no The following BPA's have been addressed with the patient today: Depression, Nutrition, and Advanced Care Planning none * Bianka Oneill PAC - 07/04/2024 3:00 PM CDT Subjective: Subjective Patient is in the office today to follow-up after delivering baby boy 5 months ago. Discuss she canfeel irritable. 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 Does not get much timefor sleep. Had gallbladder removal and since thenloose stools. Review of Systems Constitutional: Negative for chills and fever. Respiratory: Negative for cough and shortness of breath. Cardiovascular: Negative for chest pain and palpitations. Gastrointestinal: Positive for diarrhea. Negative for abdominal pain and nausea. Genitourinary: Negative for dysuria. Musculoskeletal: Negative for arthralgias. Neurological: Negative for dizziness. Psychiatric/Behavioral: The patient is nervous/anxious. Objective: Objective Physical Exam Vitals reviewed. Constitutional: Appearance: Normal appearance. She is not ill-appearing. HENT: Head: Normocephalic and atraumatic. Eyes: General: Right eye: No discharge. Left eye: No discharge. Extraocular Movements: Extraocular movements intact. Cardiovascular: Rate and Rhythm: Normal rate and regular rhythm. Heart sounds: No murmur heard. Pulmonary: Effort: Pulmonary effort is normal. No respiratory distress. Breath sounds: Normal breath sounds. No wheezing. Neurological: Mental Status: She is alert. Psychiatric: Mood and Affect: Mood normal. .PHQ-2 Little interest or pleasure in doing things: More than half the days Feeling down, depressed, or hopeless: Several days Initial Score - If the score is 2 or higher, please proceed with the additional evaluation.: 3 PHQ-9 3. Trouble falling asleep or staying asleep or sleeping too much?: 0 - Not at all 4. Feeling tired or having little energy?: 0 - Not at all 5. Poor appetite or overeating?: 2 - More than half the days 6. Feeling bad about yourself or that you are a failure or have let yourself or your family down?: 0 - Not at all 7. Trouble concentrating on things, such as reading the newspaper or watching television?: 0 - Not at all 8. Moving or speaking so slowly that other people could have noticed. Or the opposite - being so fidgety or restless that you have been moving around a lot more than usual?: 0 - Not at all 9. Thoughts that you would be better off or of hurting yourself in some way?: 0 - Not at all 10. If you checked off any problems, how difficult have these problems made it for you to do your work, take care of things at home or get along with other people?: Somewhat difficult Total Score - Questions 1-9: 5 .DAAN Over the last 2 weeks, how often have you been bothered by the following problems? Feeling nervous, anxious, or on edge: Over half the days Not being able to stop or control worrying: Nearly every day Worrying too much about different things: Nearly every day Trouble relaxing: Several days Being so restless that it's hard to sit still: Not at all Becoming easily annoyed or irritable : Over half the days Feeling afraid as if something awful might happen: Nearly every day DANA - 7 Scale Total Score:: 14 If you checked off any problems, how difficult have these made it for you to do your work/school, take care of things at home, or get along with other people?: Very difficult Assessment and Plan Assessment & Plan See Diagnoses, Orders, Follow-up, and Instructions .Diagnoses and all orders for this visit: Anxiety - venlafaxine (EFFEXOR-XR) 37.5 MG CAPSULE SR 24 HR; Take 1 Capsule by mouth daily. - CMP (COMPREHENSIVE METABOLIC PANEL); Future - COMPLETE BLOOD COUNT (CBC) WITH DIFF; Future - THYROID STIMULATING HORMONE (TSH); Future Screening for diabetes mellitus - HEMOGLOBIN A1C W/ ESTIMATED GLUCOSE; Future Anemia, unspecified type - COMPLETE BLOOD COUNT (CBC) WITH DIFF; Future - FERRITIN; Future - IRON,TRANSFERN,CALC.TIBC,%SAT; Future - VITAMIN B12; Future - FOLIC ACID (FOLATE); Future Diarrhea, unspecified type Other orders - colestipol (COLESTID) 1 GM Tablet; Take 1 Tablet by mouth 2 times daily. Discussed increased anxiety will have patient start Effexor as directed. After 2 weeks could decrease to 75 mg daily. Blood work as ordered follow-up on previous anemia screening for diabetes as she had gestational diabetes during . Discussed postcholecystectomy diarrhea start colestipol as directed. Notify of any problems with medication changes return to clinic in 3. Will follow up when labs resulted. documented in this encounter Plan of Treatment Upcoming Encounters Date Type Department Care Team (Late st Contact Info) Description 10/07/2024 3:00 PM BLOCK [facility]WYER Office Visit [facility] Medical [facility] [address] [place] [address] Bianka Oneill PAC [address] [place] [address] documented as of this encounter Goals Goal Patient Goal Type Associated Problems Recent Progress Patient-Stated? Author just want to feel normal Behavioral Health On track(2023 4:08 PM BLOCK SAWYER) Yes Che Dickerson LCSW Note: Goal/Objective: Decrease anxious and depressive symptoms. Anticipated Time Frame for Goal Completion: 6 months Goal Reviewed with: patient Readiness to change: Ready to change Department associated with goal: [facility] Steps to achieve goal: [...] and depression. documented as of this encounter Results * THYROID STIMULATING HORMONE (TSH) (07/04/2024 4:11 PM CDT) TSH 1.882 0.300 - 5.000 mIU/L 07/04/2024 5:45 PM CDT [facility] Blood Venipuncture / Unknown 07/04/2024 4:11 PM CDT 07/04/2024 5:01 PM CDT us Josie Fritcher PAC CHEMISTRY ORDERABLES Fin al Result Performing Organization Address City/[facility]/ZIP Co de Phone Number [facility] [address] [place] [address] * FOLIC ACID (FOLATE) (07/04/2024 4:11 PM CDT) Pathologist [facility] FOLATE 16.3 7.0 - 31.4 ng/mL 07/04/2024 5:58 PM CDT [facility] IS THE PATIENT REQUIRED TO BE FASTING? No 07/04/2024 5:[address] [facility] Blood Venipuncture / Unknown 07/04/2024 4:11 PM CDT 07/04/2024 5:02 PM CDT us Bianka Diasoctavioer PAC CHEMISTRY ORDERABLES Fin al Result Performing Organization Address City/[facility]/ZIP Co de Phone Number [facility] [address] [place] [address] * VITAMIN B12 (07/04/2024 4:11 PM CDT) [facility] VITAMIN B12 483 213 - 816 pg/mL 07/04/2024 5:58 PM CDT [facility] Blood Venipuncture / Unknown 07/04/2024 4:11 PM CDT 07/04/2024 5:02 PM CDT Bianka Albert Mai PAC CHEMISTRY ORDERABLES Fin al Result [facility] [address] [place] [address] * (ABNORMAL) IRON,TRANSFERN,CALC.TIBC,%SAT (07/04/2024 4:11 PM CDT) [facility] IRON 32 25 - 156 mcg/dL 07/04/2024 5:30 PM CDT [facility] TRANSFERRIN 366 180 - 382 mg/dL 07/04/2024 5:30 PM CDT [facility] TIBC, CALCULATED 458 265 - 497 mcg/dL 07/04/2024 5:30 PM CDT [facility] % SATURATION * 7(L) 15 - 62 % 07/04/2024 5:30 PM CDT [facility] Blood Venipuncture / Unknown 07/04/2024 4:11 PM CDT 07/04/2024 5:01 PM CDT us Bianka Oneill PAC CHEMISTRY ORDERABLES Fin al Result [facility] [address] [place] [address] * FERRITIN (07/04/2024 4:11 PM CDT) [facility] FERRITIN 5 5 - 204 ng/mL 07/04/2024 5:45 PM CDT [facility] Blood Venipuncture / Unknown 07/04/2024 4:11 PM CDT 07/04/2024 5:01 PM CDT us Bianka Oneill PAC CHEMISTRY ORDERABLES Fin al Result [facility] [address] [place] [address] * CMP (COMPREHENSIVE METABOLIC PANEL) (07/04/2024 4:11 PM CDT) SODIUM 142 136 - 145 mmol/L 07/04/2024 5:30 PM CDT [facility] POTASSIUM 4.1 3.5 - 5.1 mmol/L 07/04/2024 5:30 PM CDT [facility] CHLORIDE 107 98 - 107 mmol/L 07/04/2024 5:30 PM CDT [facility] CO2, VENOUS 25 22 - 30 mmol/L 07/04/2024 5:30 PM CDT [facility] ANION GAP 14.1 <18.0 mmol/L 07/04/2024 5:[address] [facility] GLUCOSE 81 70 - 99 mg/dL 07/04/2024 5:30 PM CDT [facility] BUN 9 5 - 18 mg/dL 07/04/2024 5:[address] [facility] CREATININE, BLOOD 0.72 0.60 - 1.00 mg/dL 07/04/2024 5:30 PM CDT [facility] BUN/CREATININE RATIO 13 12 - 20 ratio 07/04/2024 5:[address] [facility] TOTAL PROTEIN 7.6 6.3 - 8.2 g/dL 07/04/2024 5:30 PM CDT [facility] ALBUMIN 4.5 3.5 - 5.0 g/dL 07/04/2024 5:[address] [facility] A/G RATIO 1.5 1.0 - 2.2 07/04/2024 5:30 PM CDT [facility] CALCIUM 9.7 8.7 - 10.5 mg/dL 07/04/2024 5:30 PM CDT [facility] T BILI 0.2 0.2 - 1.2 mg/dL 07/04/2024 5:30 PM CDT [facility] SGOT (AST) 19 5 - 34 U/L 07/04/2024 5:30 PM CDT [facility] SGPT (ALT) 16 0 - 55 U/L 07/04/2024 5:30 PM CDT [facility] ALKALINE PHOSPHATASE 99 40 - 150 U/L 07/04/2024 5:30 PM CDT [facility] IS THE PATIENT REQUIRED TO BE FASTING? No 07/04/2024 5:30 PM CDT [facility] GFR, ESTIMATED >60 >=60 07/04/2024 5:[address] [facility] Comment: Creatinine Clearance is the preferred criteria for selecting drug dose adjustments in renally impaired patients. ??The GFR is provided as additional pertinent clinical information. GFR is reported in mL/min/1.73 sq m. Calculation based on the Chronic Kidney Disease Epidemiology Collaboration (CKD- EPI) equation refit without adjustment for race. GFR, EST. >60 >=60 024 5:30 PM CDT [facility] GFR, EST. NONAFRICAN >60 >=60 07/04/2024 5:[address] [facility] Blood Venipuncture / Unknown 07/04/2024 4:11 PM CDT 07/04/2024 5:01 PM CDT us Bianka Oneill PAC CHEMISTRY ORDERABLES Fin al Result [facility] [address] [place] [address] * HEMOGLOBIN A1C W/ ESTIMATED GLUCOSE (07/04/2024 4:11 PM CDT) HGB-A1C 5.5 4.0 - 6.0 % 07/04/2024 5:27 PM CDT [facility] Est Average Glucose 111.2 mg/dL 07/04/2024 5:27 PM CDT [facility] Blood Venipuncture / Unknown 07/04/2024 4:11 PM CDT 07/04/2024 5:01 PM CDT Narrative [facility] - 07/04/2024 5:27 PM CDT HEMOGLOBIN A1C: DIABETIC PATIENTS: WELL-CONTROLLED: ?? 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
--- OUTSIDE RECORDS SUMMARY | 2024-09-22 20:28 | XMS_ITS | Encounter Summary ---
Author Organization [facility] Address [address] [place] [address] Phone Care Team Providers Care Toe Stripper Name Role Phone Bianka Oneill Primary Care Provider + Reason for Visit * Auth/Cert (Routine) Specialty Diagnoses / Procedures Referred By Contac t Referred To Contact Diagnoses GALLBLADDER DISEASE Procedures LAPAROSCOPIC CHOLECYSTECTOMY WITH / WITHOUT CHOLANGIOGRAMS Suresh Gleason MD [address] [address] Phone: tel: fax: Referral ID Status Reason Start Date Expiration Date Visits Re quested Visits Authorized [id number] 1 1 Encounter Details Date Type Department Care Team (Late st Contact Info) Description 03/05/2024 8:10 AM CDT - 03/05/2024 10:10 AM CDT Surgery [facility] Periop [address] [place] [address] Suresh Gleason MD [address] [address] LAPAROSCOPIC CHOLECYSTECTOMY Surgery Details Date/Time Status Location OR Service Patient Class Case Class Case Type Trauma Case? 03/05/2024 8:10 AM Posted [facility] Elective/ Scheduled Panel 1 Procedure LRB Anes Op Region Wound Class Comments LAPAROSCOPIC CHOLECYSTECTOMY N/A General Abdomen C lean Contaminated Surgeon Surgeon Role Service Panel Suresh Gleason MD Primary General 1 Special Needs 5' 3 215# documented in this encounter Social History Tobacco [...] Sign Reading Time Taken Comments Blood Pressure 134/92 03/05/2024 10:03 AM CDT Pulse 55 03/05/2024 10:03 AM CDT Temperature 36.1 ??C (97 ??F) 03/05/2024 10:03 AM CDT Respiratory Rate 16 03/05/2024 10:03 AM CDT Oxygen Saturation 97% 03/05/2024 10:03 AM CDT Inhaled Oxygen Concentration - - Weight 96.9 kg (213 lb 9 oz) 03/05/2024 7:21 AM CDT Height 160 cm (5' 3 ) 03/05/2024 7:21 AM CDT Body Mass Index 37.83 03/05/2024 7:21 AM CDT documented in this encounter Discharge Instructions * Discharge Instructions* Stephanie Rodriguez RN - 03/05/2024 9:47 AM CDT GENERAL [...] Everywhere. * Minimally Invasive Cholecystectomy Care After Fgzt-[id number]-[id number] (Faroese) documented in this encounter Medications at Time [...] the report from the CT scan from [facility]. We will upload images [...] observation. Information booklet regarding cholecystectomy from the [employer] was also provided. Total time spent on this encounter on this date of service, including pre-visit review of separately obtained history, fgpx-bx-[id number] interaction performing medically appropriate physical exam, patientcounseling/education, interpretation of diagnostic results, care coordination and documentation was45 minutes. Subjective: HPI: Annalise Vogt is a 18 y.o. female who I was asked to see by YARED Sims for possible gallbladder disease. She is a very pleasant lady, she had a baby recently. 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 She has been having epigastric abdominal pain that radiates to her back for the last couple of months. Sometimes associated with greasy food intake but sometimes not. The pain comes and goes is not all the time. Sometimes associated with nausea but no emesis. She denies any history priorabdominal operations. She did visit [facility] ER and a CT [...] 5 mm trocar was placed above the belly button a 12 mm trocar in the epigastric area and another 5 mm trocar in the right flank. All trocar sites were anesthetized with local anesthesia and trocars were placed under direct vision. The gallbladder was identified and retracted towards the right shoulder the infundibulum was retracted laterally, there were some adhesions between the omentum and the gallbladder that were divided with elect rocautery. Calot's triangle was dissected using electrocautery after division of the peritoneum on top of the gallbladder, the critical view of safety was photodocumented. The cystic artery as well as the cystic duct were clipped and divided. The [...] with interrupted 4 Monocryl suture and surgical glue was applied. The patient tolerated the procedure well without any complications she was allowed toreturn to the recovery area in a stable condition. Needle and sponge counts were correct. Estimatedblood loss 2 mL By: Suresh Gleason MD; 03/05/2024, 9:43 AM CDT documented in this encounter Miscellaneous Notes * Interdisciplinary - Stephanie Rodriguez RN - 03/05/2024 11:03 AM CDT Pt. Ready for D/C. D/C instructions given, all questions answered. No complaints, VSS. Pt. Instructed to turn senior front end engineer light when dressed. Pt. To be wheeled [...] Pain and Promote Comfort Flowsheets (Taken 03/05/2024 0955 by MOO) Pain Management Interventions: quiet environment facilitated Intervention: Provide Person-Centered Care Flowsheets (Taken 03/05/2024 0715 by ELVIRA) Trust Relationship/Rapport: care explained choices [...] videos and all your education online visit, [email or web address] or scan this QR code with your [...] Follow these instructions at home: Medicines Take nlae-bfr-dcjyiib and prescription medicines only as told by [...] cannot use soap and water, use hand document control manager. ? Change your bandage. ? Leave stitches [...] 2009-06-13 Document Updated: 2022-03-08 Document Reviewed: 2022-03-08 [employer] Patient Education ? 2023 [employer] * Plan of Care - Moo Moy RN - 03/05/2024 9:11 AM CDT Patient will be discharged from PACU when criteria has been met. * Plan of Care - Elvira Arechiga RN - 03/05/2024 7:16 AM CDT Problem: Adult Inpatient Plan of Care Goal: Plan of Care Review Outcome: Ongoing (see interventions/notes) Flowsheets (Taken 03/05/2024 1886) Plan of Care Reviewed With: patient family [...] Intervention: Mutually Develop Transition Plan Flowsheets (Taken 03/05/2024714) Readmission Within the Last 30 Days: no previous admission in last 30 days Problem: Surgery Nonspecified Goal: Anesthesia/Sedation Recovery Outcome: Ongoing (see interventions/notes) Intervention: Optimize Anesthesia Recovery Flowsheets (Taken 03/05/2024714) Safety Promotion/Fall Prevention: nonskid shoes/slippers when out of bed low bed * Jhoana - Kaitlin Mathis RN - 03/01/2024 12:38 PM CDT Patient denies testing positive for COVID in the past 90 days No current COVID symptoms No COVID test needed *If you experience any signs or symptoms of illness prior to your scheduled procedure or if you can???t keep your procedural appointment, please call the doctor who is doing your procedure. * Kaitlin Owens RN - 03/01/2024 12:38 PM CDT [facility] ADULT TEACHING Patient Name: Annalise Vogt : 2005 CSN#: [id number] Person Educated Patient Ready to Learn Yes [...] be allowed to accompany you to the [facility]. No children under theage of 16 will [address] allowed in the [facility] unless they are the patient. If the [...] Patient Response: Verbalizes Understanding Patient assessed for stacker straightener during the preop interview and appropriate interventions taken if applicable. documented in this encounter Plan of Treatment Upcoming Encounters Date Type Department Care Team (Late st Contact Info) Description 10/07/2024 3:00 PM SEO TEAM LEAD Office Visit [facility] Medical [facility] [address] [place] [address] Bianka Oneill, [facility] [address] [place] [address] documented as of this encounter Goals Goal Patient Goal Type Associated Problems Recent Progress Patient-Stated? Author just want to feel normal Behavioral Health On track(2023 4:08 PM SEO TEAM LEAD) Yes Che Dickerson, PATTERNMAKER SAMPLE Note: Goal/Objective: Decrease anxious and depressive symptoms. Anticipated Time Frame for Goal Completion: 6 months Goal Reviewed with: patient Readiness to change: Ready to change Department associated with goal: [facility] Steps [...] Case Report Surgical Pathology Report ? Case: [id number] ? Authorizing Provider: ??Suresh Gleason, ??Collected: ? 03/05/2024 08:09 AM ? MD ? Ordering Location: ? [facility] ? Received: ?03/05/2024 10:23 AM ? [facility] ? Main OR ? Pathologist: ? Luis Pedraza MD ? Specimen: ?Gallbladder, GALLBLADDER ? 03/06/2024 7:59 AM CDT [facility] FINAL DIAGNOSIS Gallbladder, cholecystectomy: - Chronic cholecystitis - Cholesterolosis 03/06/2024 7:59 AM CDT [facility] Pre-Operative Diagnosis GALLBLADDER DISEASE 03/06/2024 7:59 AM CDT [facility] Gross Description A. GALLBLADDER The [...] up to 0.2 cm in greatest thickness. Card Cleaner sample of the cystic duct and neck along with the body and fundus are submitted in cassette A1. MH/sb Total time of fixation is 13 hours, 37 minutes. 03/06/2024 7:59 AM CDT [facility] Microscopic Description There are no obvious stones in the lumen of the gallbladder or in the container in which it is received. Card Cleaner sections of the wall show benign-appearing biliary epithelium with Rokitansky Aschoff sinuses and subepithelial foamy macrophages. 03/06/2024 7:59 AM CDT [facility] Tissue GALLBLADDER STRUCTURE / Unknown 03/05/2024 8:09 AM CDT 03/05/2024 10:23 AM CDT Suresh Gleason MD PATHOLOGY/CYTOLOGY OR DERABLES Final Result [facility] [address] [place] [address] * POCT Urine HCG () (03/05/2024 7:20 AM CDT) POC URINE Negative POC URINE CONTROL Surgical Assistant Certified Pass Urine 03/05/2024 7:20 AM CDT Suresh Gleason MD POINT OF CARE TESTING (MANUAL) Final Result documented in this encounter Visit Diagnoses Not on filedocumented in this encounter Administered Medications Inactive Administered Medications - up to 3 most recent administrations Medication Order MAR Action Action Date Dose Rate Site bupivacaine (MARCAINE) 0.5 % injection ONCE (in OR), Starting on Mon03/05/24 at 0921, Until Mon03/05/24 at 0931, INTRA-OP Given 03/05/2024 9:21 AM CDT 12 mL Operative Site diphenhydrAMINE (BENADRYL) injection 25 mg 25 [...] Given 03/05/2024 9:49 AM CDT 50 mcg HYDROcodone-acetaminophe n (NORCO) 5-325 MG per tablet 1-2 Tablet [...] 2) increasing dosage, or 3) changing to CENTRAL SERVICE TECH. Give 1 Tablet for moderate pain rating of 4-6 Give 2 Tablets for severe pain rating 7-10 Given 03/05/2024 10:27 AM CDT 1 Tablet HYDROCODONE-ACETAMINOPHE N 5-325 MG PO TABS 1 dose, Starting [...] II) 0936 (Given - Provid er: Moo Moy, RN) ketorolac (TORADOL) injection 30 mg (COMPLETED) 30 mg, Intravenous, ONCE, 1 dose, On Mon03/05/24 at 1030, PACU (I & II) 0947 (Given - Provid er: Moo Moy, PHAM) Continuous Medication Order 03/03/2024 03/04/2024 03/05/2024 lactated ringers infusion at 20 mL/hr, Intravenous, CONTINUOUS, Starting on Mon03/05/24 at 0800, Until Mon03/05/24 at 1350, PRE-OP (SURGERY) 0733 (New Bag - Prov ider: Elvira Arechiga RN)0830 (Continued by Anesthesia - Provider: Harry Guzman MD)0926 (New Bag - Provider: Harry Guzman MD)1003 (Stopped - Provider: Moo Moy, PHAM) PRN Medication Order 03/03/2024 03/04/2024 03/05/2024 bupivacaine [...] 2) increasing dosage, or 3) changing to CENTRAL SERVICE TECH. Give 1 Tablet for moderate pain rating of 4-6 Give 2 Tablets for severe pain rating 7-10 1027 (Given - Provid er: Stephanie Rodriguez RN) ondansetron (ZOFRAN) injection 4 mg 4 [...] documented as of this encounter Care Teams Toe Stripper Relationship Specialty Start Date End Date Bianka Oneill PAC [address] [place] [address] PCP - General Physician Early Childhood Educator Aide 08/18/22 documented as of this encounter
--- OUTSIDE RECORDS SUMMARY | 2024-09-22 20:28 | XMS_ITS | Encounter Summary ---
Author Organization [facility] Address [address] [place] [address] Phone Care Team Providers Care Title Manager Name Role Phone Bianka Oneill Primary Care Provider + Reason for Referral * Radiology Services (Routine) - Closed Specialty Diagnoses / Procedures Referred By Contac t Referred To Contact Radiology Diagnoses Generalized abdominal pain Procedures US ABDOMEN COMPLETE Bianka Oneill PAC [address] [place] [address] Phone: tel: fax: Referral ID Status Reason Start Date Expiration Date Visits Re quested Visits Authorized [id number] Closed 04/17/2023 1 1 Reason for Visit * Radiology Services (Routine) - Closed Specialty Diagnoses / Procedures Referred By Contac t Referred To Contact Radiology Diagnoses Generalized abdominal pain Procedures US ABDOMEN COMPLETE Bianka Oneill PAC [address] [place] [address] Phone: tel: fax: Referral ID Status Reason Start Date Expiration Date Visits Re quested Visits Authorized [id number] Closed 04/17/2023 1 1 Encounter Details Date Type Department Care Team (Latest Contact Info) Description 06/03/2023 7:40 AM CDT - 06/03/2023 11:59 PM CDT Hospital Encounter [facility]ound [address] [place] [address] Bianka Oneill, PAC [address] [place] [address] Discharge Disposition: Discharged to home or Selfcare [...] AM CDT documented as of this encounter Medications at Time of Discharge Docusate Calcium (STOOL SOFTENER PO) Take by mouth. busPIRone (BUSPAR) 15 MG Tablet Take 0.5 Tablets by mouth 2 times daily. 30 Tablet 1 05/05/2023 4 escitalopram (Lexapro) 20 MG TabletIndications :Anxiety Take 1 Tablet by mouth daily. 90 Tablet 05/05/2023 3 famotidine (PEPCID) 20 MG Tablet Take 1 Tablet by mouth 2 times daily. 60 Tablet 3 04/17/2023 3 ferrous sulfate 325 (65 Fe) MG TabletIndications :Anemia, unspecified type Take 1 Tablet by mouth 2 times daily. 60 Tablet 3 02/27/2023 4 mupirocin (BACTROBAN) 2 % Ointment Application Site: apply 3 times daily to area under left arm for 10 days. 30 g 1 05/29/2023 3 ondansetron (ZOFRAN-ODT) 4 MG TABLET DISPERSIBLE Take 1 Tablet by mouth every 8 hours as needed for Nausea - 1st line. 30 Tablet 05/05/2023 4 documented as of this encounter Plan of Treatment Upcoming Encounters Date Type Department Care Team (Late st Contact Info) Description 10/07/2024 3:00 PM STILL OPERATOR HELPER Office Visit [facility] [place] [address] Bianka Oneill, YARED [address] [place] [address] documented as of this encounter Goals Goal Patient Goal Type Associated Problems Recent Progress Patient-Stated? Author just want to feel normal Behavioral Health On track(2023 4:08 PM STILL OPERATOR HELPER) Yes Che Dickerson, APPLIQUER ZIGZAG Note: Goal/Objective: Decrease anxious and depressive symptoms. Anticipated Time Frame for Goal Completion: 6 months Goal Reviewed with: patient Readiness to change: Ready to change Department associated with goal: [facility] Steps to achieve goal: [...] Procedure Name Priority Date/Time Associated Diagnosis Comments US ABDOMEN COMPLETE Routine 06/03/2023 8 :03 AM CDT Generalized abdominal pain documented in this encounter Results * US ABDOMEN COMPLETE (06/03/2023 8:03 AM CDT) Anatomical Region Laterality Modality Abdomen N/A Ultrasound 06/03/2023 11:1 9 AM CDT Impressions 06/03/2023 11:22 AM CDT IMPRESSION: Negative abdominal ultrasound. ?? Narrative 06/03/2023 11:22 AM CDT EXAM DESCRIPTION: ?? US ABDOMEN COMPLETE REASON FOR STUDY: Epigastric abdominal pain for 1 month. TECHNIQUE: Dynamic and static images acquired of the abdomen and recorded on PACS. Additional selected color Doppler and spectral images recorded. COMPARISON: None available. FINDINGS: PANCREAS: ??Visualized portions of the pancreas are within normal limits. Portions of the pancreatic body and tail are obscured due to bowel gas. LIVER: Measures ??16.6 ??cm and is normal in echogenicity. There is no focal hepatic lesion. LIVER VASCULATURE: Normal directional flow of the main portal and hepatic veins. GALLBLADDER: No echogenic gallstones, gallbladder wall thickening, pericholecystic fluid, or Sanz's sign. BILIARY: No intrahepatic ductal dilatation. Common bile duct measures ??0.5 ??cm. INFERIOR VENA CAVA: Unremarkable. AORTA: No abdominal aortic aneurysm. RIGHT KIDNEY: Kidney measures ??10.8 ??cm. There is normal ?? echogenicity and normal cortical thickness. There is no hydronephrosis. No cystic or solid mass. LEFT KIDNEY: Kidney measures ??12.5 ??cm. There is normal ?? echogenicity and normal cortical thickness. There is no hydronephrosis. No cystic or solid mass. SPLEEN: Measures ??11.4 ??cm with no focal lesion. PERITONEAL AND PLEURAL SPACES: No ascites or pleural effusion. OTHER: No other significant abnormality. THIS IS AN ELECTRONICALLY VERIFIED FINAL REPORT 06/03/2023 11:19 AM - Electronically signed by ??Fernando Garcia M.D. CH: FELISHA D: ??06/03/2023 11:19 AM T: ??06/03/2023 11:19 AM Report ID: [id number] Reading Location: ??[id number] Procedure Note Fernando Garcia Jr., MD - 06/03/2023 EXAM DESCRIPTION: US ABDOMEN COMPLETE REASON FOR STUDY: Epigastric abdominal pain for 1 month. TECHNIQUE: Dynamic and static images acquired of the abdomen and recorded on PACS. Additional selected color Doppler and spectral images recorded. COMPARISON: None available. FINDINGS: PANCREAS: Visualized portions of the pancreas are within normal limits. Portions of the pancreatic body and tail are obscured due to bowel gas. LIVER: Measures 16.6 cm and is normal in echogenicity. There is no focal hepatic lesion. LIVER VASCULATURE: Normal directional flow of the main portal and hepatic veins. GALLBLADDER: No echogenic gallstones, gallbladder wall thickening, pericholecystic fluid, or Sanz's sign. BILIARY: No intrahepatic ductal dilatation. Common bile duct measures 0.5 cm. INFERIOR VENA CAVA: Unremarkable. AORTA: No abdominal aortic aneurysm. RIGHT KIDNEY: Kidney measures 10.8 cm. There is normal echogenicity and normal cortical thickness. There is no hydronephrosis. No cystic or solid mass. LEFT KIDNEY: Kidney measures 12.5 cm. There is normal echogenicity and normal cortical thickness. There is no hydronephrosis. No cystic or solid mass. SPLEEN: Measures 11.4 cm with no focal lesion. PERITONEAL AND PLEURAL SPACES: No ascites or pleural effusion. OTHER: No other significant abnormality. THIS IS AN ELECTRONICALLY VERIFIED FINAL REPORT 06/03/2023 11:19 AM - Electronically signed by Fernando Garcia M.D. CH: FELISHA Report ID: [id number] Reading Location: [place] [address] IMPRESSION: Negative abdominal ultrasound. 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
--- OUTSIDE RECORDS SUMMARY | 2024-09-22 20:28 | XMS_ITS | Encounter Summary ---
Author Organization [facility] [employer] Care Team Providers Care Reel Cutter Name Role Phone Bianka Oneill Primary Care Provider + Encounter Details Date Type Department Care Team (Latest Contact Info) Description 03/05/2024 Travel Social History Tobacco Use Types Packs/Day [...] st Contact Info) Description 10/07/2024 3:00 PM SAILMAKER Office Visit [facility] - [facility] [address] [place] [id number] Bianka Oneill PAC [address] [place] [address] documented as of this encounter Goals Goal Patient Goal Type Associated Problems Recent Progress Patient-Stated? Author just want to feel normal Behavioral Health On track(2023 4:08 PM SAILMAKER) Yes Che Dickerson, GRANITE SETTER Note: Goal/Objective: Decrease anxious and depressive symptoms. Anticipated Time Frame for Goal Completion: 6 months Goal Reviewed with: patient Readiness to change: Ready to change Department associated with goal: [facility] Steps to achieve goal: [...] documented as of this encounter Care Teams Reel Cutter Relationship Specialty Start Date End Date Bianka Oneill PAC [address] [place] [address] PCP - General Physician Gas Turbine Powerplant Mechanic Helper 08/18/22 documented as of this encounter
--- OUTSIDE RECORDS SUMMARY | 2024-09-22 20:28 | XMS_ITS | Encounter Summary ---
Author Organization [facility] Address [address] [place] [address] Phone Care Team Providers Care Benzene Operator Name Role Phone Bianka Oneill Primary Care Provider + Reason for Visit * Reason Comments Anxiety * Auth/Cert (Routine) Specialty Diagnoses / Procedures Referred By Contac t Referred To Contact Referral ID Status Reason Start Date Expiration Date Visits Re quested Visits Authorized [id number] 1 1 Encounter Details Date Type Department Care Team ([facility] Contact Info) Description 06/23/2023 9:[address] [facility] [address] [place] [address] Che Dickerson, IRON MOLDER HELPER [address] [place] [address] Anxiety (Primary Dx) Discharge Disposition: Discharged to [...] this encounter Progress Notes * Che Dickerson, IRON MOLDER HELPER - 06/23/2023 9:15 AM CDT Images from the original note were not included. [facility] CL[facility]ICAL PROGRESS NOTE NAME: Annalise Vogt AGE: 18 y.o. DATE OF : 2005 DATE OF SERVICE: 06/23/2023 START TIME: 10:20am END TIME: 11:05m Patient was assessed via online video for [...] to change Department associated with goal[facility] Steps to achieve [...] st Contact Info) Description 10/07/2024 3:00 PM ASSISTANT PRODUCTION EDITOR [facility] [place] [address] Bianka Oneill [facility] [address] [place] [address] documented as of this encounter Goals Goal Patient Goal Type Associated Problems Recent Progress Patient-Stated? Author just want to feel normal Behavioral Health On track(2023 4:08 PM ASSISTANT PRODUCTION EDITOR) Yes Che Dickerson LCSW Note: Goal/Objective: Decrease anxious and depressive symptoms. Anticipated Time Frame for Goal Completion: 6 months Goal Reviewed with: patient Readiness to change: Ready to change Department associated with goal: [facility] Steps to achieve [...] documented as of this encounter Care Teams Benzene Operator Relationship Specialty Start Date End Date Bianka Oneill PAC [address] [place] [address] PCP - General Physician Real Estate Teacher 08/18/22 documented as of this encounter
--- OUTSIDE RECORDS SUMMARY | 2024-09-22 20:28 | XMS_ITS | Encounter Summary ---
Author Organization [facility] Address [address] [place] [address] Phone Care Team Providers Care Campaign Specialist Name Role Phone Bianka Oneill Primary Care Provider + Suresh Gleason MD Unavailable Encounter Details Date Type Department Care Team (Late st Contact Info) Description 07/26/2023 Behavioral Health Patient Survey [facility] [address] [place] [id number] Che Dickerson, [facility] [address] [place] [address] Social History Tobacco Use Types Packs/Day Years [...] Coronavirus/COVID-19? No / Unsure 07/26/2023 11:17 AM PUNCHBOARD INSERTER documented as of this encounter Plan of Treatment Upcoming Encounters Date Type Department Care Team (Late st Contact Info) Description 10/07/2024 3:00 PM PUNCHBOARD INSERTER Office Visit [facility] Medical [facility] [place] [address] [place] [address] Bianka Oneill [address] [place] [address] documented as of this encounter Goals Goal Patient Goal Type Associated Problems Recent Progress Patient-Stated? Author just want to feel normal Behavioral Health On track(2023 4:08 PM PUNCHBOARD INSERTER) Yes Che Dickerson, ORNAMENT MAKER HAND Note: Goal/Objective: Decrease anxious and depressive symptoms. Anticipated Time Frame for Goal Completion: 6 months Goal Reviewed with: patient Readiness to change: Ready to change Department associated with goal: [facility] Steps to [...] documented as of this encounter Care Teams Campaign Specialist Relationship Specialty Start Date End Date Bianka Oneill [address] [place] [address] PCP - General Physician Vegetable Picker 08/18/22 Suresh Gleason MD [address] [phone] Consulting Physician General Surgery 03/11/24 documented as of this encounter
--- OUTSIDE RECORDS SUMMARY | 2024-09-22 20:28 | XMS_ITS | Encounter Summary ---
Author Organization [facility] [employer] Care Team Providers Care Interchange Agent Name Role Phone Bianka Oneill Primary Care Provider + Encounter Details Date Type Department Care Team (Latest Contact Info) Description 07/26/2023 Travel Social History Tobacco Use Types Packs/Day [...] Coronavirus/COVID-19? No / Unsure 07/26/2023 11:17 AM REAL ESTATE FIRM MANAGER documented as of this encounter Plan of Treatment Upcoming Encounters Date Type Department Care Team (Late st Contact Info) Description 10/07/2024 3:00 PM REAL ESTATE FIRM MANAGER Office Visit [facility] Medical [facility] - [facility] [place] [address] [place] [address] Bianka Oneill [address] [place] [address] documented as of this encounter Goals Goal Patient Goal Type Associated Problems Recent Progress Patient-Stated? Author just want to feel normal Behavioral Health On track(2023 4:08 PM REAL ESTATE FIRM MANAGER) Yes Che Dickerson, SENIOR PROCESS ANALYST Note: Goal/Objective: Decrease anxious and depressive [...] documented as of this encounter Care Teams Interchange Agent Relationship Specialty Start Date End Date Bianka Oneill [address] [place] [address] PCP - General Physician Cafe Associate 08/18/22 documented as of this encounter
--- OUTSIDE RECORDS SUMMARY | 2024-09-22 20:28 | XMS_ITS | Encounter Summary ---
Author Organization [employer] Care Team Providers Care Assistant Professor Of Psychology Name Role Phone Bianka Oneill YARED Primary Care Provider + Suresh Gleason MD Unavailable [phone] Encounter Details Date Type Department Care Team (Latest Contact Info) Description 07/04/2024 Travel Social History Tobacco Use Types Packs/Day [...] on file documented as of this encounter Functional Status * Question Answer [...] Ordonez RN documented as of this encounter Plan of Treatment Upcoming Encounters Date Type Department Care Team (Late st Contact Info) Description 10/07/2024 3:00 PM IRONWORKER APPRENTICE Office Visit [facility] Medical [facility] - [facility] [place] [address] [place] [address] Bianka Oneill [address] [place] [address] documented as of this encounter Goals Goal Patient Goal Type Associated Problems Recent Progress Patient-Stated? Author just want to feel normal Behavioral Health On track(2023 4:08 PM IRONWORKER APPRENTICE) Yes Che Dickerson LCSW Note: Goal/Objective: Decrease anxious and depressive symptoms. Anticipated Time Frame for Goal Completion: 6 months Goal Reviewed with: patient Readiness to change: Ready to change Department associated with goal: [facility] Steps [...] documented as of this encounter Care Teams Assistant Professor Of Psychology Relationship Specialty Start Date End Date Bianka Oneill [address] [place] [address] PCP - General Physician Jailkeeper 08/18/22 Suresh Gleason MD [address] [phone] Consulting Physician General Surgery 03/11/24 documented as of this encounter
--- OUTSIDE RECORDS SUMMARY | 2024-09-22 20:28 | XMS_ITS | Encounter Summary ---
Author Organization [employer] Care Team Providers Care Supervisor Reclamation Name Role Phone Bianka Oneill YARED Primary Care Provider + Encounter Details Date Type Department Care Team (Latest Contact Info) Description 10/04/2023 Travel Social History Tobacco Use Types Packs/Day [...] doing things Several days 10/04/2023 3:18 PM Natalie Vera MA Feeling down, depressed, or hopeless Several days 10/04/2023 3:18 PM Natalie Vera MA * Over the past 2 weeks, how often have you been bothered by any of the following problems? Question Answer Date of Assessment Author Patient Health Questionnaire -2 Score 2 10/04/2023 3:18 PM CLERICAL CAR CHECKER Ruyle, Natalie D. , MA documented as of this encounter Plan of Treatment Upcoming Encounters Date Type Department Care Team (Late st Contact Info) Description 10/07/2024 3:00 PM CLERICAL CAR CHECKER Office Visit [facility] Medical [facility] - [facility] [address] [place] [address] Bianka Oneill [address] [place] [address] documented as of this encounter Goals Goal Patient Goal Type Associated Problems Recent Progress Patient-Stated? Author just want to feel normal Behavioral Health On track(2023 4:08 PM CLERICAL CAR CHECKER) Yes Che Dickerson, STREET CAR MECHANIC Note: Goal/Objective: Decrease anxious and depressive symptoms. Anticipated Time Frame for Goal Completion: 6 months Goal Reviewed with: patient Readiness to change: Ready to change Department associated with goal: [facility] Steps to achieve [...] as of this encounter Care Teams Supervisor Reclamation Relationship Specialty Start Date End Date Bianka Oneill [address] [place] [address] PCP - General Physician Cup Setter Lockstitch 08/18/22 documented as of this encounter
--- OUTSIDE RECORDS SUMMARY | 2024-09-22 20:29 | XMS_ITS | Encounter Summary ---
Author Organization [facility] [employer] Care Team Providers Care Leather Goods Ii Assembler Name Role Phone Bianka Oneill Primary Care Provider + Encounter Details Date Type Department Care Team (Latest Contact Info) Description 05/25/2023 Travel Social History Tobacco Use Types Packs/Day Years Used Date Smoking Tobacco: Never Smokeless Tobacco: Never Alcohol Use Standard Drinks/Week Comments Never 0 (1 standard drink = 0.6 oz pur e alcohol) PHQ-2 Answer Date Recorded Total Score - Questions 1-9 6 09/2021 Education Answer Date Recorded What is the highest level of school you have completed or the highest degree you have received? 12th grade 03/01/2023 Sexually Active Control Partners Comments Not Currently Implant Male Comments No Sex and Gender Information Value Date Recorded Sex Assigned at Not on file Legal Sex Female 8:55 PM CDT Gender Identity Not on file Sexual Orientation Not on file COVID-19 Exposure Response Date Recorded In the last 10 days, have yo u been in contact with someone who was confirmed or suspected to have Coronavirus/COVID-19? No / Unsure 05/25/2023 11:01 AM CDT documented as of this encounter Plan of Treatment Upcoming Encounters Date Type Department Care Team (Late st Contact Info) Description 10/07/2024 3:00 PM FURRIER DESIGNER Office Visit [facility] Medical [facility] - [facility] [place] [address] [place] [address] Bianka Oneill [address] [place] [address] documented as of this encounter Goals Goal Patient Goal Type Associated Problems Recent Progress Patient-Stated? Author just want to feel normal Behavioral Health On track(2023 4:08 PM FURRIER DESIGNER) Yes Che Dickerson LCSW Note: Goal/Objective: Decrease anxious and depressive symptoms. Anticipated Time Frame for Goal Completion: 6 months Goal Reviewed with: patient Readiness to change: Ready to change Department associated with goal: [facility] Steps to achieve [...] Assessment Noted Time PHQ-9 Depression Total Score: 6 08/18/20 22 8:00 AM FURRIER DESIGNER documented as of this encounter Care Teams Leather Goods Ii Assembler Relationship Specialty Start Date End Date Bianka Oneill [address] [place] [address] PCP - General Physician Insurance Salesman 08/18/22 documented as of this encounter
--- OUTSIDE RECORDS SUMMARY | 2024-09-22 20:29 | XMS_ITS | Encounter Summary ---
Author Organization [facility] Address [address] [facility] [place] [address] Phone Care Team Providers Care Manager Country Name Role Phone Bianka Oneill Primary Care Provider + Reason for Visit * Consult, Test & Initiate Treatment (Routine) - Closed Specialty Diagnoses / Procedures Referred By Contac t Referred To Contact Behavioral Health Diagnoses Anxiety Bianka Oneill PAC [address] [place] [address] Phone: tel: fax: Che Dickerson, SENSOR TECHNICIAN [address] [place] [address] Phone: tel: fax: Referral ID Status Reason Start Date Expiration Date Visits Re quested Visits Authorized [id number] Closed 03/23/2023 1 1 Encounter Details Date Type Department Care Team (Latest Contact Info) Description 05/17/2023 2:30 PM CDT Outpatient Clinic Visit [facility] [address] [place] [address] Bianka Oneill PAC [address] [place] [address] Che Dickerson LCSW [address] [place] [address] Anxiety Discharge Disposition: Discharged to home or Selfcare [...] suspected to have Coronavirus/COVID-19? No / Unsure 05/17/2023 2:21 PM CDT documented as of this encounter Functional Status * Over the past 2 weeks, how often have you been bothered by any of the following problems? Question Answer Date of Assessment Author Patient Health Questionnaire -2 Score 5 05/17/2023 3:00 PM CDT Che Dickerson LCSW * Question Answer Date of Assessment Author Patient Health Questionnaire -9 Score 15 05/17/2023 3:00 PM CDT Che Dickerson LCSW * Over the last 2 weeks, how often have you been bothered by any of the following problems? Question Answer Date of Assessment Author Feeling nervous, anxious, or on edge 3 05/17/2023 3:00 PM CDT Che Dickerson LCSW Not being able to stop or co ntrol worrying 3 05/17/2023 3:00 PM CDT Che Dickerson LCSW Worrying too much about diff erent things 1 05/17/2023 3:00 PM CDT Che Dickerson LCSW Trouble relaxing 0 05/17/2023 3:00 PM CDT Che Bowles LCSW Being so restless that it is hard to sit still 0 05/17/2023 3:00 PM Che Tsang LCSW Becoming easily annoyed or irritable 1 05/17/2023 3:00 PM Che Tsang LCSW Feeling afraid as if somethi ng awful might happen 0 05/17/2023 3:00 PM Che Tsang LCSW DANA-7 Total Score 8 05/17/2023 3:00 PM Che Tsang LCSW * Over the last 2 weeks, how often have you been bothered by any of the following problems? Question Answer Date of Assessment Author Little interest or pleasure in doing things More than half the days 05/17/2023 3:00 PM Che Tsang LCSW Feeling down, depressed, or hopeless Nearly every day 05/17/2023 3:00 PM Che Tsang LCSW Trouble falling or staying asleep, or sleeping too much More than half the days 05/17/2023 3:00 PM Che Tsang LCSW Feeling tired or having little energy Several days 05/17/2023 3:00 PM Che Tsang LCSW Poor appetite or overeating Several days 05/17/2023 3:00 PM Che Tsang LCSW Feeling bad about yourself - or that you are a failure or have let yourself or your family down Nearly every day 05/17/2023 3:00 PM Che Tsang LCSW Trouble concentrating on things, such as reading the newspaper or watching television Nearly every day 05/17/2023 3:00 PM Che Tsang LCSW Moving or speaking so slowly that other people could have noticed? Or the opposite - being so fidgety or restless that you have been moving around a lot more than usual. Not at all 05/17/2023 3:00 PM Che Tsang LCSW Thoughts that you would be better off or hurting yourself in some way Not at all 05/17/2023 3:00 PM Che Tsang LCSW * Questions about Anxiety Question Answer Date of Assessment Author In the last 4 weeks, have yo u had an anxiety attack - suddenly feeling fear or panic? No 05/17/2023 3:00 PM CDT Che Dickerson LCSW * If you checked off any problems on this questionnaire, Question Answer Date of Assessment Author How difficult have these problems made it for you to do your work, take care of things at home, or get along with other people? Somewhat difficult 05/17/2023 3:00 PM CDT Che Dickerson LCSW documented as of this encounter Patient Instructions * Patient Instructions* Che Dickerson LCSW - 05/17/2023 2:30 PM CDT Images from the original note were not included. Suicide Hotlines - Crisis Intervention 10/04 Intervention Team [facility] Crisis Intervention Team?[phone] ([facility] Crisis Intervention Team?.. [phone] ([facility] Can be used by individual, PD, Hospitals, family, friend etc. for in-home assessment of concerns for someone's mental health Local Numbers - Behavioral Health Response (BHR)?[phone] / [phone] ([place]) Life Crisis Services?.314-148- QEKX (9095) ([place]) CARES Line (Medicaid patients up to age 21)???[phone] If non-Medicaid patient, still need tocall Cares Line and if screened out will be sent to [facility] or [place] for follow up Crisis Intervention Team National Numbers - National Suicide Prevention Hotline: ?.988 or 7-989-735-TALK (6851) Sexual Assault Hotline?4-574-578-[place] (6019) Domestic Violence Hotline?.5-003-049-SAFE (4818) [employer] Lifeline? Trans Lifeline?1-099- 710-3186 LGBTQ Partner Abuse & Sexual Assault Line?.1-233.676.1714 Crisis Text Line?Text help to 883568 Warm Lines [place] Warmline?2-158-415-79 [facility] Warm[facility]? 9a-9p/7 days a week Compassionate Ear Warmline?..9-885-168-2982 MENTAL HEALTH EMERGENCY- Assessment for Crisis/or/ED's with Inpatient Units Behavioral Health Urgent Care [facility] [phone] (5yrs old to Adult) [address] - [address] [place] [address] Monday - Monday 9:00am - 7:00pm *Last patient seen at 6:00pm Walk-In Crisis or Telehealth for age 18+ Crisis Walk In: Call for Help's Living Room: Monday-Monday 8:30am-5pm [address], [place] [address] Crisis Telehealth: Monday, Monday, Monday 8:30am-5:00pm and Monday, 12:00pm-8:00pm. Must have good internet connection. To access telehealth go to ???Talk to Someone Now?? or call [phone] ext. 109. No cost and no insurance necessary. Emergency Department diversion program. [facility] (Intake Adult Acute) [phone] [place] [address]. https://[facility]/services/dbgrnyzydm-quvzsz-tlb-wellness [facility] [phone] (Intake Adult 18+-Used by clinician to alert that patient will be coming in through the emergency room) [address] [place] [address] [facility] (10/04 - emergency services for children age 4+, adolescent, adult) [phone] [place] [address]. Adult Inpatient Facility. http://[facility].org/ [facility] Sexual Assault Victims Care Unit. (Children, adolescent, adult) 10/04 crisis intervention: 850.842.3484 Hotline Number and Main Office. Community Stabilization (Homeless adults with Mental Illness) 332.733.1134. http://[facility].org/ [facility] 914-905-1078923.884.8488 (children, adolescent, adult) [address] [place] [address] http://[facility].com/admission-informationfaqs/ [facility] Behavioral Health [phone] Option #1 (adult) [address] [place] [address] https://www.[facility]/service/mental-health Inpatient evaluations conducted in Intake office on the ground floor 8am-4pm [facility] (children, adolescent, adult) http://www.[facility]iPrimitive Makeup/behavioralhealth [facility] [phone] (Adult only) https://www.[facility]/psychiatry/nhtof-yluympeaey-hytvrrkr.php [facility] Behavioral Health. [phone] (children, adolescent, adult) http://www.[facility]/medical-services/behavioral-health documented in this encounter Progress Notes * Che Dickerson LCSW - 05/17/2023 2:30 PM CDT [facility] BEHAVIORAL HEALTH INITIAL EVALUATION Name: Annalise Vogt Age: 18 y.o. Date of : 2005 Date of service: 05/17/2023 Start time: 2:20 pm End time: 3:00 pm DIAGNOSIS: 1. Anxiety BEHAVIORAL HEALTH REFERRAL PRIMARY CARE PHYSICIAN: YARED Sims CHIEF COMPLAINT/PRESENTING PROBLEM: What are the main concerns which brought you to treatment at this time?: Anxiety: avoidance difficulties concentrating intrusive thoughts irritability nervousness somatic complaints: Stomach Aches Shortness of Breath Head Aches racing heart stress worry Recent examples of current difficulty include: Reports she started on prozac when iln 2nd or 3rd grade for test anxiety, but didn't feel like it worked. She believes this was the start of depression like symptoms for her. Annalise reports over the last few years, she has suffered some significant difficulties that were traumatic for her. In 2019 Annalise's mother cheated on her which caused a divorce. In 2020 her mother remarried and they moved away from her home and friends the last few months of her senior year of high school. Annalise reports that her mother made her move out of the home at16 into her grandmothers home and she has lived there ever since. In Sep 2021, her father had a significant illness that took several months to clear. He was in ICU for a month and she didn't know ifhe would make it. Right after this cleared, her grandmother went into hospital for something seemingly simple and never came out of it. She reports the hospital was responsible for her . Most recently she had her hip reconstructed. This has been challenging because she had to give up her life for recovery. She is not working, going to school and she is unable to do things she once enjoyed. Annalise reports low self esteem at times and being a people pleaser. She reports she feels like depression symtpoms and anxiety symptoms are about even, but feels like the depression symptoms are more dificult for her right now. PHQ was 15 and DANA was 8. No SI or HI and no self harm. MENTAL STATUS EXAMINATION: Orientation: Oriented to person, place, time and situation Appearance: Well groomed In no apparent distress Behavior: open pleasant Speech: Communicative, spoke clearly in sentences Mood: anxious Affect: within normal range Thought Process: Clear and well linked Thought Content: No evidence of perceptual distortion and/or psychosis Perception: No hallucinations Memory: Reported: Short and exterminator helper termite memory intact Attention: Able to focus during the interview Insight/Judgement: Normal insight and judgement FUNCTIONAL ASSESSMENT: Can the patient perform Activities of Daily Living (ADL'S)?: Patient is able to complete ADL's independently Does patient have the ability and the capacity to respond to treatment?: Yes RISK ASSESSMENT: Suicidal Ideation: There is no current suicidal ideation.. -Saunemin- Suicide Severity Rating Scale: Risk Stratification: Suicide Risk Stratification: No Identified Suicide Risk Risk Assessment: Homicidal Ideation: There is no history of homicidal ideation.. Self Harm: No. PSYCHIATRIC/PSYCHOLOGICAL HISTORY: (include any history of behavioral health difficulties, behavioral health treatment, or inpatient hospitalizations) No prior care, mom got meds for test anxiety from general physician Previous mental health treatment: No. SOCIAL HISTORY: Current relationship status: In stable relationship [place] Currently living with Self, Significant other and Sibling(s) Will family be involved in treatment? No Social supports, hobbies, and activities: sleeps or works Are there any languages other than Gabonese spoken in the home? No Are there any Anglican or Cultural Considerations that may impact treatment in any way? No FAMILY OF ORIGIN: Parent(s)/Caregiver(s): bio parents Place of /where raised. [place] Sibling(s): Yes- yes, 5 siblings Family mental health and substance abuse history: Sister is on medication for depression and anxiety and mo has meds for anxiety (ocd). No substance use history for anyone, as reported by patient DEVELOPMENTAL HISTORY: Pertinent neurodevelopmental considerations: None COMMUNICATION: Are there any barriers to communication: None Identified EDUCATIONAL/EMPLOYMENT HISTORY: Currently in school? No, highest level of education completed: was supposed to attend radiology program, but delayed because of surgeries Currently employed? No had to quit because of surgeries HISTORY OF TRAUMA/ABUSE: Are you a current victim or perpetrator of abuse, trauma, or exploitation? Current: No Reported Trauma Past: see above PAST AND CURRENT SUBSTANCE USE: Tobacco: No Alcohol: No Other substances: No Substance use treatment?: No. LEGAL HISTORY: Pertinent legal history: No Does patient have access to firearms?: No FINANCIAL STATUS: The following financial stressors were identified: None SERVICE HISTORY: No DAILY ROUTINE: Sleep: no change or problem with sleep approximate hours of sleep per night?: varies Appetite/Meals: Balanced diet Exercise: unable to exercise, doing PT TREATMENT RECOMMENDATIONS: Recommendations for initial treatment plan: Initiate individual therapy as needed for support and guidance MEDICAL HISTORY: Allergies: Allergies Allergen Reactions ??? Tramadol Other (see Comments) Seizure Current medications: Current Outpatient Medications Medication Sig Dispense Refill ??? busPIRone (BUSPAR) 15 MG Tablet Take 0.5 Tablets by mouth 2 times daily. 30 Tablet 1 ??? Docusate Calcium (STOOL SOFTENER PO) Take by mouth. ??? escitalopram (Lexapro) 20 MG Tablet Take 1 Tablet by mouth daily. 90 Tablet 0 ??? famotidine (PEPCID) 20 MG Tablet Take 1 Tablet by mouth 2 times daily. 60 Tablet 3 ??? ferrous sulfate 325 (65 Fe) MG Tablet Take 1 Tablet by mouth 2 times daily. 60 Tablet 3 ??? HYDROcodone-acetaminophen (NORCO) 5-325 MG Tablet TAKE 1 TABLET BY MOUTH EVERY 4 TO 6 HOURS NEEDED FOR PAIN ??? ondansetron (ZOFRAN-ODT) 4 MG TABLET DISPERSIBLE Take 1 Tablet by mouth every 8 hours as neededfor Nausea - 1st line. 30 Tablet 0 ??? scopolamine (TRANSDERM-SCOP) 1 MG/3DAYS PATCH 72 HR 1 Patch by Transdermal route. (Patient not taking: Reported on 04/17/2023) ??? Semaglutide-Weight Management (Wegovy) 0.25 MG/0.5ML Solution Auto-injector 0.25 mg by Subcutaneous route every 7 days. 2 mL 0 No current facility-administered medications for this visit. Medical History: Past Medical History Positives Diagnosis Date ??? Anxiety ??? Asthma ??? History of anemia as a child Surgical History: Past Surgical History: Procedure Laterality Date ??? NO PREVIOUS SURGERY History of Head injury? No Any other medical concerns? Labs: Lab Results Component Value Date WBC 6.08 02/24/2023 RBC 5.14 02/24/2023 HEMOGLOBIN 11.9 (L) 02/24/2023 HEMATOCRIT 39.6 02/24/2023 MCV 77.0 (L) 02/24/2023 MCH 23.2 (L) 02/24/2023 MCHC 30.1 (L) 02/24/2023 PLATELETCNT 303 02/24/2023 RDW 24.2 (H) 02/24/2023 LYMPHOCYTES 31.9 02/24/2023 RELEOS 1.5 02/24/2023 RELBAS 0.7 02/24/2023 ANC 3.62 02/24/2023 MONOCYTES 0.39 02/24/2023 EOSINOPHILS 0.09 02/24/2023 BASOPHILS 0.04 02/24/2023 Lab Results Component Value Date SODIUM 141 04/17/2023 POTASSIUM 4.0 04/17/2023 CHLORIDE 105 04/17/2023 CO2VEN 23 04/17/2023 ANIONGAP 17.0 04/17/2023 GLUCOSE 87 04/17/2023 BUN 9 04/17/2023 CREATININE 0.53 (L) 04/17/2023 TOTALPROTEIN 7.1 04/17/2023 ALBUMIN 4.4 04/17/2023 CALCIUM 9.8 04/17/2023 TBIL 0.2 04/17/2023 SGPTALT 16 04/17/2023 ALKALINEPHO 83 04/17/2023 No results found for: RPR Lab Results Component Value Date TSH 2.990 08/18/2022 No results found for: ETHANOL No results found for: SALICYLATE No results found for: ACETAMINOPHE CHE DICKERSON LCSW documented in this encounter Plan of Treatment Upcoming Encounters Date Type Department Care Team (Late st Contact Info) Description 10/07/2024 3:00 PM BOTTLE CARRIER Office Visit [facility] [address] [place] [address] Bianka Oneill, [facility] [address] [place] [address] documented as of this encounter Goals Goal Patient Goal Type Associated Problems Recent Progress Patient-Stated? Author just want to feel normal Behavioral Health On track(2023 4:08 PM BOTTLE CARRIER) Yes Che Dickerson LCSW Note: Goal/Objective: Decrease anxious and depressive symptoms. Anticipated Time Frame for Goal Completion: 6 months Goal Reviewed with: patient Readiness to change: Ready to change Department associated with goal: [facility] Steps to [...] Total Score: 6 08/18/20 22 8:00 AM BOTTLE CARRIER documented as of this encounter Care Teams Manager Country Relationship Specialty Start Date End Date Bianka Oneill PAC [address] [place] [address] PCP - General Physician Compounder Flavorings 08/18/22 documented as of this encounter
--- OUTSIDE RECORDS SUMMARY | 2024-09-22 20:29 | XMS_ITS | Encounter Summary ---
Author Organization [facility] [employer] Care Team Providers Care Civil Engineering Professor Name Role Phone Bianka Oneill Primary Care Provider + Encounter Details Date Type Department Care Team (Latest Contact Info) Description 01/26/2023 Travel Social History Tobacco Use Types Packs/Day Years Used Date Smoking Tobacco: Never Smokeless Tobacco: Never Alcohol Use Standard Drinks/Week Comments Never 0 (1 standard drink = 0.6 oz pur e alcohol) PHQ-2 Answer Date Recorded Total Score - Questions 1-9 6 09/2021 Sexually Active Control Partners Comments Not Currently [...] suspected to have Coronavirus/COVID-19? No / Unsure 01/26/2023 9:03 AM CDT documented as of this encounter Plan of Treatment Upcoming Encounters Date Type Department Care Team (Late st Contact Info) Description 10/07/2024 3:00 PM CUPOLA OPERATOR Office Visit [facility] Medical Group - Family Medicine [facility] [address] [place] [address] Bianka Oneill PAC [address] [place] [address] documented as of this encounter Visit Diagnoses Not on filedocumented in this encounter Additional Health Concerns Assessment Noted Time PHQ-9 Depression Total Score: 6 08/18/20 22 8:00 AM CUPOLA OPERATOR documented as of this encounter Care Teams Civil Engineering Professor Relationship Specialty Start Date End Date Bianka Oneill PAC [address] [place] [address] PCP - General Physician Capacity Manager 08/18/22 documented as of this encounter
--- OUTSIDE RECORDS SUMMARY | 2024-09-22 20:29 | XMS_ITS | Encounter Summary ---
Author Organization [facility] Address [address] [place] [address] Phone Care Team Providers Care Bobbin Hauler Name Role Phone Bianka Oneill Primary Care Provider + Encounter Details Date Type Department Care Team (Late st Contact Info) Description 03/06/2023 Telephone [facility] - Family Medicine [facility] [address] [place] [address] Mikie Solorio MD [address] [address] Social History Tobacco Use Types Packs/Day Years [...] suspected to have Coronavirus/COVID-19? No / Unsure 03/01/2023 1:43 PM CDT documented as of this encounter Miscellaneous Notes * Telephone Encounter - Mikie Solorio MD - 03/06/2023 9:17 AM CDT d documented in this encounter Plan of Treatment Upcoming Encounters Date Type Department Care Team (Late st Contact Info) Description 10/07/2024 3:00 PM LOOPING MACHINE OPERATOR Office Visit [facility] Medical Group - Family Medicine [facility] [address] [place] [address] Bianka Oneill PAC [address] [place] [address] documented as of this encounter Visit Diagnoses Not on filedocumented in this encounter Additional Health Concerns Assessment Noted Time PHQ-9 Depression Total Score: 6 08/18/20 22 8:00 AM LOOPING MACHINE OPERATOR documented as of this encounter Care Teams Bobbin Hauler Relationship Specialty Start Date End Date Bianka Oneill PAC [address] [place] [address] PCP - General Physician Surgical Services Director 08/18/22 documented as of this encounter
--- OUTSIDE RECORDS SUMMARY | 2024-09-22 20:29 | XMS_ITS | Encounter Summary ---
Author Organization [facility] Address [address] [place] [address] Phone Care Team Providers Care Rn Maternity Name Role Phone Bianka Oneill Primary Care Provider + Reason for Visit * Reason Comments Follow-up 3 month Encounter Details Date Type Department Care Team (Late st Contact Info) Description 05/29/2023 10:15 AM CDT Office Visit [facility] - Family Medicine [facility] [address] [place] [address] Bianka Oneill PAC [address] [place] [address] Anxiety (Primary Dx); History of miscarriage; Amenorrhea; Skin infection Discharge Disposition: Discharged to home or Selfcare [...] suspected to have Coronavirus/COVID-19? No / Unsure 05/29/2023 9:59 AM CDT documented as of this encounter Last Filed Vital Signs Vital Sign Reading Time Taken Comments Blood Pressure 122/78 05/29/2023 10:26 AM CDT Pulse 102 05/29/2023 10:26 AM CDT Temperature 36.4 ??C (97.5 ??F) 05/29/2023 10:26 AM C DT Respiratory Rate - - Oxygen Saturation 98% 05/29/2023 10:26 AM CDT Inhaled Oxygen Concentration - - Weight 108.4 kg (239 lb) 05/29/2023 10:26 AM CDT Height 160 cm (5' 3 ) 05/29/2023 10:26 AM CDT Body Mass Index 42.34 05/29/2023 10:26 AM CDT documented in this encounter Functional Status * Question Answer Date of Assessment Author Little interest or pleasure in doing things Not at all 05/29/2023 10:33 AM CDT Sandra Lira CMA Feeling down, depressed, or hopeless Not at all 05/29/2023 10:33 AM CDT Sandra Lira CMA * Over the past 2 weeks, how often have you been bothered by any of the following problems? Question Answer Date of Assessment Author Patient Health Questionnaire -2 Score 0 05/29/2023 10:33 AM CDT Sandra Lira CMA documented as of this encounter Patient Instructions * Patient Instructions* Bianka Oneill PAC - 05/29/2023 10:15 AM CDT Labs today as ordered documented in this encounter Progress Notes * Sandra Lira CMA - 05/29/2023 10:15 AM CDT Annalise Martin Vogt, 18 y.o., female is here for Follow-up (3 month ) Medication Refills: Patient reports/denies need for medication refills. Orders Pended: no Requested Prescriptions No prescriptions requested or ordered in this encounter Home Medications Medication Sig Start Date End Date Taking? Authorizing Provider busPIRone (BUSPAR) 15 MG Tablet Take 0.5 Tablets by mouth 2 times daily. Patient not taking: Reported on 05/29/2023 05/05/23 Bianka Oneill PAC Docusate Calcium (STOOL SOFTENER PO) Take by mouth. Yes Debbie Khan MD escitalopram (Lexapro) 20 MG Tablet Take 1 Tablet by mouth daily. 05/05/23 Yes Bianka Oneill PAC famotidine (PEPCID) 20 MG Tablet Take 1 Tablet by mouth 2 times daily. 04/17/23 Bianka Oneill PAC ferrous sulfate 325 (65 Fe) MG Tablet Take 1 Tablet by mouth 2 times daily. 02/27/23 Yes Bianka Oneill PAC HYDROcodone-acetaminophen (NORCO) 5-325 MG Tablet 04/28/23 ProviderDebbie MD ondansetron (ZOFRAN-ODT) 4 MG TABLET DISPERSIBLE Take 1 Tablet by mouth every 8 hours as needed forNausea - 1st line. 05/05/23 Yes Bianka Oneill PAC scopolamine (TRANSDERM-SCOP) 1 MG/3DAYS PATCH 72 HR 1 Patch by Transdermal route. 03/23/23 ProviderDebbie MD Semaglutide-Weight Management (Wegovy) 0.25 MG/0.5ML Solution Auto-injector 0.25 mg by Subcutaneousroute every 7 days. 02/24/23 Bianka Oneill PAC There are no discontinued [...] C Virus (HCV) Screening Never done ??? Meningococcal B Immunization (1 of 2 - Risk Bexsero 2-dose series) Never done ??? Human Papillomavirus (HPV) Immunization (1 - 2-dose series) Never done ??? SARS-COV-2 Immunization (4 - Pfizer series) 03/29/2022 ??? Influenza Immunization (1) 05/19/2023 Orders Pended: no The following BPA's have been addressed with the patient today: Depression PHQ-2 Little interest or pleasure in doing things: Not at all Feeling down, depressed, or hopeless: Not at all Initial Score - If the score is 2 or higher, please proceed with the additional evaluation.: 0 PHQ-9 3. Trouble falling asleep or staying asleep or sleeping too much?: 0 - Not at all 4. Feeling tired or having little energy?: 0 - Not at all 5. Poor appetite or overeating?: 0 - Not at all 6. Feeling bad about yourself or that [...] some way?: 0 - Not at all Total Score - Questions 1-9: 0 * Bianka Oneill PAC - 05/29/2023 10:15 AM CDT Subjective: Subjective LMP 04/22/23 No diarrhea, no vomiting Started back at work, feeling better, no longer home alone [facility] , has history of 2 miscarriages Feels doing well today Discussed rash in left axilla area, history of MRSA Review of Systems Constitutional: Negative for chills and fever. Respiratory: Negative for cough and shortness of breath. Cardiovascular: Negative for chest pain and palpitations. Gastrointestinal: Negative for abdominal pain, diarrhea, nausea and vomiting. Genitourinary: Negative for difficulty urinating and dysuria. Neurological: Negative for dizziness. Psychiatric/Behavioral: Negative for suicidal ideas. Objective: Objective Physical Exam Vitals reviewed. Constitutional: [...] Breath sounds: Normal breath sounds. No wheezing. Skin: General: Skin is warm. Comments: Left axilla with pustular lesions, mild erythema Neurological: Mental Status: She is alert. Psychiatric: Mood and Affect: Mood normal. Assessment and Plan See Diagnoses, Orders, Follow-up, and Instructions .Diagnoses and all orders for this visit: Anxiety History of miscarriage - PROGESTERONE; Future Amenorrhea - HCG BETA SUBUNIT SERUM QUANT; Future Skin infection Other orders - mupirocin (BACTROBAN) 2 % Ointment; Application Site: apply 3 times daily to area under left arm for 10 days. Anxiety improved with increased dose lexapro and was doing well with buspar Will continue Use bactroban for skin lesions, if no improvements consider clindamycin Labs to confirm Will follow up when resulted Follow up with ob Follow up in 3 months Notify if any acute problems documented in this encounter Miscellaneous Notes * Addendum Note - Bianka Oneill PAC - 05/29/2023 10:15 AM CDTAddended by: BIANKA ONEILL on: 05/29/2023 04:22 PM Modules accepted: Orders documented in this encounter Plan of Treatment Upcoming Encounters Date Type Department Care Team (Late st Contact Info) Description 10/07/2024 3:00 PM CONSUMER SAFETY OFFICER Office Visit [facility] - [facility] [address] [place] [id number] Bianka Oneill PAC [address] [place] [address] documented as of this encounter Goals Goal Patient Goal Type Associated Problems Recent Progress Patient-Stated? Author just want to feel normal Behavioral Health On track(2023 4:08 PM CONSUMER SAFETY OFFICER) Yes Che Dickerson, SENIOR WINDOWS ENGINEER Note: Goal/Objective: Decrease anxious and depressive symptoms. [...] documented as of this encounter Results * (ABNORMAL) HCG BETA SUBUNIT SERUM QUANT (05/31/2023 9:44 AM CDT) HCG BETA SUBUNIT, QUANT 2,076.80(H ) 0.00 - 5.00 mIU/mL 05/31/2023 12:52 PM CDT [facility] Blood Venipuncture / Unknown 05/31/2023 9:44 AM CDT 05/31/2023 11:44 AM CDT Narrative [facility] - 05/31/2023 12:52 PM CDT HCG levels should be interpreted with consideration given to the patient's clinical condition. No currently available hCG test is approved by the FDA for use as a tumor marker. hCG results <5 mIU/mL are considered negative. Weeks post LMP ?hCG range (mIU/mL) 1 - 10 ?202 - 231,000 11 - 15 ? 22,536 - 234,990 16 - 22 ? 8,007 - 50,064 23 - 40 ? 1,600 - 49,413 The concentration of hCG in maternal serum rises rapidly in early , hCG levels less than 25 mIU/mL do not exclude . A further sample should be tested after 48 hours if is suspected. Heterophilic antibodies present in the serum of some patients may cause a false positive result in the assay. Before making a diagnosis of malignancy based on elevated hCG, confirm results with a urine hCG. us Bianka Oneill PAC CHEMISTRY ORDERABLES Fin al Result [facility] [address] [place] [address] * (ABNORMAL) HCG BETA SUBUNIT SERUM QUANT (05/29/2023 11:20 AM CDT) HCG BETA SUBUNIT, QUANT 1,026.07(H ) 0.00 - 5.00 mIU/mL 05/29/2023 1:04 PM CDT [facility] Blood Venipuncture / Unknown 05/29/2023 11:20 AM CDT 05/29/2023 12:03 PM CDT Narrative [facility] - 05/29/2023 1:04 PM CDT HCG levels should be interpreted with consideration given to the patient's clinical condition. No currently available hCG test is approved by the FDA for use as a tumor marker. hCG results <5 mIU/mL are considered negative. Weeks post LMP ?hCG range (mIU/mL) 1 - 10 ?202 - 231,000 11 - 15 ? 22,536 - 234,990 16 - 22 ? 8,007 - 50,064 23 - 40 ? 6,275 - 31,722 The concentration of hCG in maternal serum rises rapidly in early , hCG levels less than 25 mIU/mL do not exclude . A further sample should be tested after 48 hours if is suspected. Heterophilic antibodies present in the serum of some patients may cause a false positive result in the assay. Before making a diagnosis of malignancy based on elevated hCG, confirm results with a urine hCG. Bianka Oneill PAC CHEMISTRY ORDERABLES Fin al Result [facility] [address] [place] [address] documented in this encounter Visit Diagnoses Diagnosis Anxiety- Primary Anxiety state, unspecified History of miscarriage Personal history of other genital system and obstetric disorders Amenorrhea Absence of menstruation Skin infection Unspecified local infection of skin and subcutaneous tissue documented in this encounter Additional Health Concerns Infection Onset Date Last Indicated Resolved Time MRSA 03/23/2023 03/23/2023 Assessment Noted Time PHQ-9 Depression Total Score: 0 05/29/20 23 10:33 AM CDT documented as of this encounter Care Teams Rn Maternity Relationship Specialty Start Date End Date Bianka Oneill, YARED [address] [place] [address] PCP - General Physician Seaming Inspector 08/18/22 documented as of this encounter
--- OUTSIDE RECORDS SUMMARY | 2024-09-22 20:29 | XMS_ITS | Encounter Summary ---
Author Organization [facility] Address [address] [place] [address] Phone Care Team Providers Care Education Counselor Name Role Phone Bianka Oneill Primary Care Provider + Reason for Referral * Consult, Test & Initiate Treatment (Routine) - Closed Specialty Diagnoses / Procedures Referred By Suzy giraldo Referred To Contact Oncology Diagnoses Iron deficiency anemia, unspecified iron deficiency anemia type Bianka Oneill PAC [address] [place] [address] Phone: tel: fax: [facility] [address] [place] [address] Phone: tel: fax: Referral ID Status Reason Start Date Expiration Date Visits Re quested Visits Authorized [id number] Closed 11/30/2022 1 1 Scheduling Instructions Annalise is being referred for iron deficiency anemia. Please contact patient for scheduling questions or concerns. Reason for Visit * Reason Onset Date Comments Results 11/29/2022 Encounter Details Date Type Department Care Team ([facility] Contact Info) Description 11/29/2022 Telephone [facility] Medical [facility] [address] [place] [address] Bianka Oneill PAC [address] [place] [address] Results Social History Tobacco Use Types Packs/Day Years [...] suspected to have Coronavirus/COVID-19? No / Unsure 11/29/2022 8:20 AM CDT documented as of this encounter Miscellaneous Notes * Addendum Note - Bianka Oneill PAC - 11/30/2022 2:23 PM CDTAddended by: BIANKA ONEILL on: 11/30/2022 02:23 PM Modules accepted: Orders * Telephone Encounter - Griselda Tomas RN - 11/29/2022 1:55 PM CDT Left voice message * Telephone Encounter - Griselda Tomas RN - 11/29/2022 1:55 PM CDT ----- Message from YARED Sims sent at 11/29/2022 12:23 PM CDT ----- Iron still low even with taking supplement, suggest consult with transplant registered nurse, if agreeable can place order for iron deficiency anemia documented in this encounter Plan of Treatment Upcoming Encounters Date Type Department Care Team (Late st Contact Info) Description 10/07/2024 3:00 PM PBX TEACHER Office Visit [facility] Medical Group - [facility] [address] [place] [address] Bianka Oneill PAC [address] [place] [address] Scheduled Referrals Name Type Priority Associated Diagnoses Orde r Schedule HEMATOLOGY ONCOLOGY REFERRAL Outpatient Referral Routine Iron deficiency anemia, unspecified iron deficiency anemia type Expected: 11/30/2022, Expires: 12/01/2023 documented as of this encounter Visit Diagnoses Diagnosis Iron deficiency anemia, unspecified iron deficiency anemia type- Primary documented in this encounter Additional Health Concerns Assessment Noted Time PHQ-9 Depression Total Score: 6 08/18/20 8:00 AM PBX TEACHER documented as of this encounter Care Teams Education Counselor Relationship Specialty Start Date End Date Bianka Oneill PAC [address] [place] [address] PCP - General Physician Fondant Machine Operator 08/18/22 documented as of this encounter
--- OUTSIDE RECORDS SUMMARY | 2024-09-22 20:29 | XMS_ITS | Encounter Summary ---
Author Organization [facility] Address [address] [place] [address] Phone Care Team Providers Care Rubber Mixer Name Role Phone Bianka Oneill Primary Care Provider + Reason for Visit * Episode Based Medications (Routine) - Closed Specialty Diagnoses / Procedures Referred By Contac t Referred To Contact Diagnoses Iron deficiency anemia, unspecified iron deficiency anemia type Pepper Reyes, PAC [address] [place] [address] Phone: tel: fax: [facility] [address] [place] [address] Phone: tel: fax: Referral ID Status Reason Start Date Expiration Date Visits Re quested Visits Authorized [id number] Closed 01/26/2023 1 1 Encounter Details Date Type Department Care Team (Late st Contact Info) Description 02/01/2023 1:00 PM CDT Clinical Support [facility] [address] [place] [phone] Pepper Reyes PAC [address] [place] [address] Iron deficiency anemia, unspecified iron deficiency anemia type (Primary Dx) Discharge Disposition: Discharged to home [...] suspected to have Coronavirus/COVID-19? No / Unsure 02/01/2023 1:06 PM CDT documented as of this encounter Last Filed Vital Signs Vital Sign Reading Time Taken Comments Blood Pressure 119/76 02/01/2023 1:15 PM CDT Pulse 83 02/01/2023 1:15 PM CDT Temperature 36.3 ??C (97.4 ??F) 02/01/2023 1:15 PM CD T Respiratory Rate 18 02/01/2023 1:15 PM CDT Oxygen Saturation 97% 02/01/2023 1:15 PM CDT Inhaled Oxygen Concentration - - Weight - - Height - - Body Mass Index - - documented in this encounter Miscellaneous Notes * Interdisciplinary - Ada Miranda RN - 02/01/2023 1:00 PM CDT Patient to treatment bay. Plan of care for the day reviewed. VS obtained. Patient IV site accessed per policy, flushed with ease. Site secured with dressing. Pt medicated per MD order. At completion of infusion, site discontinued and site secured with gauze and coban. Patient left in safe dispostion. documented in this encounter Plan of Treatment Upcoming Encounters Date Type Department Care Team (Late st Contact Info) Description 10/07/2024 3:00 PM SHIPYARD PAINTER Office Visit [facility] Medical Group - Family [facility] [address] [place] [address] Bianka Oneill PAC [address] [place] [address] documented as of this encounter Visit Diagnoses Diagnosis Iron deficiency anemia, unspecified iron deficiency anemia type- Primary documented in this encounter Administered Medications Inactive Administered Medications - up to 3 most recent administrations Medication Order MAR Action Action Date Dose Rate Site iron sucrose (VENOFER) 300 mg in sodium chloride 0.9 % 250 mL IVPB 300 mg, Intravenous, ONCE, 1 dose, On Mon02/01/23 at 1400, Administer over 90 Minutes, Monitor patient for 30 minutes after infusion completedIndications:Iron deficiency anemia, unspecified iron deficiency anemia type New Bag 02/01/2023 2:12 PM CDT 300 mg 166.7 mL/hr documented in this encounter Additional Health Concerns Assessment Noted Time PHQ-9 Depression Total Score: 6 08/18/20 22 8:00 AM SHIPYARD PAINTER documented as of this encounter Care Teams Rubber Mixer Relationship Specialty Start Date End Date Bianka Oneill PAC [address] [place] [address] PCP - General Physician Front Maker Lockstitch 08/18/22 documented as of this encounter
--- OUTSIDE RECORDS SUMMARY | 2024-09-22 20:29 | XMS_ITS | Encounter Summary ---
Author Organization [facility] [employer] Care Team Providers Care Water Proofer Name Role Phone Bianka Oneill Primary Care Provider + Encounter Details Date Type Department Care Team (Latest Contact Info) Description 05/18/2023 Travel Social History Tobacco Use Types Packs/Day [...] st Contact Info) Description 10/07/2024 3:00 PM ROOF FIXER Office Visit [facility] Medical [facility] - [facility] [address] [place] [address] Bianka Oneill, PAC [address] [place] [address] documented as of this encounter Goals Goal Patient Goal Type Associated Problems Recent Progress Patient-Stated? Author just want to feel normal Behavioral Health On track(2023 4:08 PM ROOF FIXER) Yes Che Dickerson LCSW Note: Goal/Objective: Decrease anxious and depressive symptoms. Anticipated Time Frame for Goal Completion: 6 months Goal Reviewed with: patient Readiness to change: Ready to change Department associated with goal: [facility] Steps to achieve [...] Total Score: 6 08/18/20 22 8:00 AM ROOF FIXER documented as of this encounter Care Teams Water Proofer Relationship Specialty Start Date End Date Bianka Oneill PAC [address] [place] [address] PCP - General Physician Deputy Commissioner 08/18/22 documented as of this encounter
--- OUTSIDE RECORDS SUMMARY | 2024-09-22 20:29 | XMS_ITS | Encounter Summary ---
Author Organization [facility] Address [address] [place] [address] Phone Care Team Providers Care Cd Mixer Helper Name Role Phone Bianka Oneill Primary Care Provider + Reason for Visit * Reason Onset Date Comments Prior Authorization 02/27/2023 Encounter Details Date Type Department Care Team (Late st Contact Info) Description 02/27/2023 Telephone [facility] [address] [place] [address] Bianka Oneill PAC [address] [place] [address] Prior Authorization Social History Tobacco Use Types Packs/Day Years [...] encounter Miscellaneous Notes * Telephone Encounter - Gisela East - 03/02/2023 3:38 PM CDT Medication approved, faxed approval to pharmacy. * Telephone Encounter - Gisela East - 03/02/2023 3:37 PM CDT Images from the original note were not included. * Telephone Encounter - Gisela East - 03/01/2023 2:14 PM CDT Submitted prior authorization to insurance. * Telephone Encounter - Randee Rico APRN, ALEXIS - 02/27/2023 1:33 PM CDT Yes, Okay to proceed. * Telephone Encounter - Gisela East - 02/27/2023 1:26 PM CDT Insurance requiring a prior authorization on [employer], ok to proceed? documented in this encounter Plan of Treatment Upcoming Encounters Date Type Department Care Team (Late st Contact Info) Description 10/07/2024 3:00 PM TAKE OFF WORKER Office Visit [facility] [address] [place] [address] Bianka Oneill, PAC [address] [place] [address] documented as of this encounter Visit Diagnoses Not on filedocumented in this encounter Additional Health Concerns Assessment Noted Time PHQ-9 Depression Total Score: 6 08/18/20 22 8:00 AM TAKE OFF WORKER documented as of this encounter Care Teams Cd Mixer Helper Relationship Specialty Start Date End Date Bianka Oneill PAC [address] [place] [address] PCP - General Physician Printed Circuit Board Drafter 08/18/22 documented as of this encounter
--- OUTSIDE RECORDS SUMMARY | 2024-09-22 20:29 | XMS_ITS | Encounter Summary ---
Author Organization [facility] [employer] Care Team Providers Care Garbage Man Name Role Phone Bianka Oneill Primary Care Provider + Encounter Details Date Type Department Care Team (Latest Contact Info) Description 02/01/2023 Travel Social History Tobacco Use Types Packs/Day [...] st Contact Info) Description 10/07/2024 3:00 PM PERSONAL COUNSELOR Office Visit [facility] Medical Group - Family Medicine [facility] [address] [place] [address] Bianka Oneill PAC [address] [place] [address] documented as of this encounter Visit Diagnoses Not on filedocumented in this encounter Additional Health Concerns Assessment Noted Time PHQ-9 Depression Total Score: 6 08/18/20 22 8:00 AM PERSONAL COUNSELOR documented as of this encounter Care Teams Garbage Man Relationship Specialty Start Date End Date Bianka Oneill PAC [address] [place] [address] PCP - General Physician Induction Brazer 08/18/22 documented as of this encounter
--- OUTSIDE RECORDS SUMMARY | 2024-09-22 20:29 | XMS_ITS | Encounter Summary ---
Author Organization [facility] [employer] Care Team Providers Care Server Software Engineer Name Role Phone Bianka Oneill Primary Care Provider + Encounter Details Date Type Department Care Team (Latest Contact Info) Description 01/13/2023 Travel Social History Tobacco Use Types Packs/Day [...] suspected to have Coronavirus/COVID-19? No / Unsure 01/13/2023 1:30 PM CDT documented as of this encounter Plan of Treatment Upcoming Encounters Date Type Department Care Team (Late st Contact Info) Description 10/07/2024 3:00 PM STRUCTURAL MANAGER Office Visit [facility] Medical Group - Family Medicine [facility] [address] [place] [address] Bianka Oneill PAC [address] [place] [address] documented as of this encounter Visit Diagnoses Not on filedocumented in this encounter Additional Health Concerns Assessment Noted Time PHQ-9 Depression Total Score: 6 08/18/20 22 8:00 AM STRUCTURAL MANAGER documented as of this encounter Care Teams Server Software Engineer Relationship Specialty Start Date End Date Bianka Oneill PAC [address] [place] [address] PCP - General Physician Magazine Repairer 08/18/22 documented as of this encounter
--- OUTSIDE RECORDS SUMMARY | 2024-09-22 20:29 | XMS_ITS | Encounter Summary ---
Author Organization [facility] Address [address] [place] [address] Phone Care Team Providers Care Registered Nurse First Assistant Name Role Phone Bianka Oneill Primary Care Provider + Reason for Visit * Reason Comments Follow-up 2 month f/u Encounter Details Date Type Department Care Team (Late st Contact Info) Description 11/29/2022 8:45 AM CDT Office Visit [facility] - [facility] [address] [place] [address] Bianka Oneill PAC [address] [place] [address] Anxiety and depression (Primary Dx); Iron deficiency anemia, unspecified iron deficiency anemia type Discharge Disposition: Discharged to home or [...] Sign Reading Time Taken Comments Blood Pressure 124/72 11/29/2022 8:40 AM CDT Pulse 89 11/29/2022 8:40 AM CDT Temperature 36.5 ??C (97.7 ??F) 11/29/2022 8:40 AM CD T Respiratory Rate 16 11/29/2022 8:40 AM CDT Oxygen Saturation 98% 11/29/2022 8:40 AM CDT Inhaled Oxygen Concentration - - Weight 107.6 kg (237 lb 3.2 oz) 11/29/2022 8:40 AM CDT Height 160 cm (5' 3 ) 11/29/2022 8:40 AM CDT Body Mass Index 42.02 11/29/2022 8:40 AM CDT Body Mass Index Percentile 99.36% 11/29/2022 8:4 0 AM CDT Growth Chart: [facility] (Girls, 2- 20 Years) documented in this encounter Patient Instructions * Patient Instructions* Bianka Oneill PAC - 11/29/2022 8:45 AM CDT Labs today as ordered documented in this encounter Progress Notes * Azalea Vizcarra - 11/29/2022 8:45 AM CDT Annalise Vogt, 17 y.o., female is here for Follow-up (2 month f/u) Medication Refills: Patient reports/denies need for medication refills. Orders Pended: no Requested Prescriptions No prescriptions requested or ordered in this encounter Home Medications Medication Sig Start Date End Date Taking? Authorizing Provider amoxicillin (AMOXIL) 500 MG Capsule TAKE 1 CAPSULE BY MOUTH TWICE A DAY FOR 10 DAYS 10/16/22 Provider, MD Debbie celecoxib (CeleBREX) 200 MG Capsule Take 1 Capsule by mouth 2 times daily. 11/25/22 Yes Bianka Oneill PAC dicyclomine (BENTYL) 20 MG Tablet Take 1 Tablet by mouth every 6 hours as needed (abdominal cramping). 10/21/22 Bianka Oneill PAC Docusate Calcium (STOOL SOFTENER PO) Take by mouth. Yes Provider, MD Debbie escitalopram (LEXAPRO) 10 MG Tablet Take 1 Tablet by mouth daily. 09/30/22 Yes Bianka Oneill PAC ferrous sulfate 325 (65 Fe) MG Tablet Take 1 Tablet by mouth 2 times daily. 08/19/22 Yes Bianka Oneill PAC There are no discontinued medications. I have reviewed the home medication list with the patient and have reconciled discrepancies. The list is accurate to the best of my knowledge. Smoking Status: Social History Tobacco Use ??? Smoking status: Never ??? Smokeless tobacco: Never Vaping Use ??? Vaping Use: Every day Substance Use Topics ??? Alcohol use: Never ??? Drug use: Never Smoking Cessation Counseling Given: no Health Care Maintenance: Health Maintenance Due Topic Date Due ??? Hepatitis A Immunization (1 of 2 - 2-dose series) Never done ??? Measles Mumps Rubella (MMR) Immunization (2 of 2 - Standard series) 2008 ??? Varicella Immunization (2 of 2 - 2-dose childhood series) 2008 ??? DTaP/Tdap/Td Immunization (5 - Tdap) 2011 ??? Meningococcal B Immunization (1 of 2 - Risk Bexsero 2-dose series) Never done ??? Human Papillomavirus (HPV) Immunization (1 - 2-dose series) Never done ??? SARS-COV-2 Immunization (4 - Booster for Pfizer series) 03/29/2022 ??? Influenza Immunization (1) 05/19/2022 Orders Pended: no The following BPA's have been addressed with the patient today: BMI * Bianka Oneill PAC - 11/29/2022 8:45 AM CDT Subjective: December 20 2022 will see orthopedic for left hip pain Reviewed she was in ER last month for miscarriage Discussed she is not having abdominal pains, cramping or anymore bleeding Depression/anxiety fair control with lexapro, situational stressors, 1 year anniversary of passing of grandmother She is not preventing , discussed if happens it happens Review of Systems Constitutional: Negative for chills and fever. Respiratory: Negative for cough and shortness of breath. Cardiovascular: Negative for chest pain. Gastrointestinal: Negative for abdominal pain, nausea and vomiting. Genitourinary: Negative for dysuria and frequency. Musculoskeletal: Positive for arthralgias and back pain. Psychiatric/Behavioral: Negative for suicidal ideas. Objective: Physical Exam Vitals reviewed. Constitutional: Appearance: Normal appearance. She is not ill-appearing. HENT: Head: Normocephalic and atraumatic. Eyes: General: Right eye: No discharge. Left eye: No discharge. Extraocular Movements: Extraocular movements intact. Cardiovascular: Rate and Rhythm: Normal rate and regular rhythm. Pulmonary: Effort: Pulmonary effort is normal. No respiratory distress. Breath sounds: Normal breath sounds. No wheezing. Skin: General: Skin is warm. Neurological: Mental Status: She is alert. Psychiatric: Mood and Affect: Mood normal. Assessment and Plan See Diagnoses, Orders, Follow-up, and Instructions .Diagnoses and all orders for this visit: Anxiety and depression - CMP (COMPREHENSIVE METABOLIC PANEL); Future Iron deficiency anemia, unspecified iron deficiency anemia type - COMPLETE BLOOD COUNT (CBC) WITH DIFF; Future - IRON W/IRON BINDING CAPACITY; Future - FERRITIN; Future Patient to continue with lexapro for anxiety/depression, reviewed medications if gets , recommend vitamin daily at this time if possible to get Will recheck iron deficiency anemia, patient has been taking oral iron without problems If still low consider referral to multimedia services manager for follow up Continue with oral iron at this time documented in this encounter Plan of Treatment Upcoming Encounters Date Type Department Care Team (Late st Contact Info) Description 10/07/2024 3:00 PM RESIDENTIAL REAL ESTATE AGENT Office Visit [facility] - [facility] [address] [place] [id number] Bianka Oneill PAC [address] [place] [address] documented as of this encounter Results * (ABNORMAL) CMP (COMPREHENSIVE METABOLIC PANEL) (11/29/2022 9:51 AM CDT) SODIUM 141 136 - 144 mmol/L 11/29/2022 10:54 AM CDT [facility] POTASSIUM 3.8 3.5 - 5.1 mmol/L 11/29/2022 10:54 AM CDT [facility] CHLORIDE 106 100 - 110 mmol/L 11/29/2022 10:54 AM CDT [facility] CO2, VENOUS 24 22 - 32 mmol/L 11/29/2022 10:54 AM CDT [facility] ANION GAP 14.8 8.0 - 20.0 mmol/L 11/29/2022 10:54 AM CDT [facility] GLUCOSE 91 70 - 99 mg/dL 11/29/2022 10:54 AM CDT [facility] BUN 7 6 - 20 mg/dL 11/29/2022 10:54 AM CDT [facility] CREATININE, BLOOD 0.48 0.40 - 1.00 mg/dL 11/29/2022 10:54 AM CDT [facility] BUN/CREATININE RATIO 15 12 - 20 ratio 11/29/2022 10:54 AM CDT [facility] TOTAL PROTEIN 7.2 6.0 - 8.3 g/dL 11/29/2022 10:54 AM CDT [facility] ALBUMIN 4.4 3.5 - 5.2 g/dL 11/29/2022 10:54 AM CDT [facility] A/G RATIO 1.6 1.0 - 2.0 11/29/2022 10:54 AM CDT [facility] CALCIUM 9.5 8.9 - 10.3 mg/dL 11/29/2022 10:54 AM CDT [facility] T BILI <0.3 <=1.2 mg/dL 11/29/2022 10:54 AM CDT [facility] SGOT (AST) 16 <=32 U/L 11/29/2022 10:54 AM CDT [facility] SGPT (ALT) 14 <=41 U/L 11/29/2022 10:54 AM CDT [facility] ALKALINE PHOSPHATASE 98(H) 45 - 87 U/L 11/29/2022 10:54 AM CDT [facility] IS THE PATIENT REQUIRED TO BE FASTING? No 11/29/2022 10:54 AM CDT [facility] GFR, ESTIMATED >60 >=60 11/29/2022 10:54 AM CDT [facility] Comment: Creatinine Clearance is the preferred criteria for selecting drug dose adjustments in renally impaired patients. ??The GFR is provided as additional pertinent clinical information. GFR is reported in mL/min/1.73 sq m. Calculation based on the Chronic Kidney Disease Epidemiology Collaboration (CKD- EPI) equation refit without adjustment for race. UNABLE TO CALCULATE GFR, EST. 023 10:54 AM CDT [facility] GFR, EST. NONAFRICAN 11/29/2022 10:54 AM CDT [facility] Blood Venipuncture / Unknown 11/29/2022 9:51 AM CDT 11/29/2022 9:57 AM CDT us Bianka Oneill PAC CHEMISTRY ORDERABLES Fin al Result [facility] [address] [place] [address] * (ABNORMAL) FERRITIN (11/29/2022 9:51 AM CDT) FERRITIN 5(L) 13 - 150 ng/mL 11/29/2022 10:54 AM CDT [facility] Blood Venipuncture / Unknown 11/29/2022 9:51 AM CDT 11/29/2022 9:57 AM CDT us Bianka Oneill PAC CHEMISTRY ORDERABLES Fin al Result Performing Organization Address City/[facility]/ZIP Co de Phone Number [facility] [address] [place] [address] * (ABNORMAL) IRON W/IRON BINDING CAPACITY (11/29/2022 9:51 AM CDT) IRON 14.46(L) 37 - 145 mcg/dL 11/29/2022 10:54 AM CDT [facility] % SATURATION * 4(L) 20 - 55 % 11/29/2022 10:54 AM CDT [facility] UIBC 350(H) 112 - 346 mcg/dL 11/29/2022 10:54 AM CDT [facility] TIBC CALC 364 149 - 491 mcg/dL 11/29/2022 10:54 AM CDT [facility] Blood Venipuncture / Unknown 11/29/2022 9:51 AM CDT 11/29/2022 9:57 AM CDT us Bianka Oneill PAC CHEMISTRY ORDERABLES Fin al Result Performing Organization Address [facility] de Phone Number [facility] [address] [place] [address] documented in this encounter Visit Diagnoses Diagnosis Anxiety and depression- Primary Dysthymic disorder Iron deficiency anemia, unspecified iron deficiency anemia type documented in this encounter Additional Health Concerns Assessment Noted Time PHQ-9 Depression Total Score: 6 08/18/20 22 8:00 AM RESIDENTIAL REAL ESTATE AGENT documented as of this encounter Care Teams Registered Nurse First Assistant Relationship Specialty Start Date End Date Bianka Oneill PAC [address] [place] [address] PCP - General Physician Operations Intern 08/18/22 documented as of this encounter
--- OUTSIDE RECORDS SUMMARY | 2024-09-22 20:29 | XMS_ITS | Encounter Summary ---
Author Organization [facility] Address [address] [address] Phone Care Team Providers Care Line Repairer Tower Name Role Phone Bianka Oneill Primary Care Provider + Reason for Visit * Reason Onset Date Comments Appointment 03/09/2023 Encounter Details Date Type Department Care Team (Late st Contact Info) Description 03/09/2023 Telephone [facility] [address] [place] [address] Bianka Oneill, YARED [address] [place] [address] Appointment Social History Tobacco Use Types Packs/Day Years [...] encounter Miscellaneous Notes * Telephone Encounter - Mayra Samuels - 03/09/2023 11:17 AM CDT Annalise Vogt 2005 Caller name: Annalise Caller phone #: [phone] Annalise is needing a follow up visit after discharge from [facility] for serotonin syndrome Patient needs to be seen within 1 week of discharge/ED visit. Please call Annalise back at [phone] or [phone] to schedule the appointment. Patient prefers to see Bianka Oneill if possible documented in this encounter Plan of Treatment Upcoming Encounters Date Type Department Care Team (Late st Contact Info) Description 10/07/2024 3:00 PM STEAM TURBINE ASSEMBLER Office Visit [facility] Medical [facility] - Family Medicine [facility] [address] [place] [address] Bianka Oneill PAC [address] [place] [address] documented as of this encounter Visit Diagnoses Not on filedocumented in this encounter Additional Health Concerns Assessment Noted Time PHQ-9 Depression Total Score: 6 08/18/20 8:00 AM STEAM TURBINE ASSEMBLER documented as of this encounter Care Teams Line Repairer Tower Relationship Specialty Start Date End Date Bianka Oneill PAC [address] [place] [address] PCP - General Physician Boat Canvas Maker And Installer 08/18/22 documented as of this encounter
--- OUTSIDE RECORDS SUMMARY | 2024-09-22 20:29 | XMS_ITS | Encounter Summary ---
Author Organization [facility] [employer] Care Team Providers Care Bottle Sorter Name Role Phone Bianka Oneill Primary Care Provider + Encounter Details Date Type Department Care Team (Latest Contact Info) Description 03/23/2023 Travel Social History Tobacco Use Types Packs/Day [...] suspected to have Coronavirus/COVID-19? No / Unsure 03/23/2023 3:29 PM CDT documented as of this encounter Plan of Treatment Upcoming Encounters Date Type Department Care Team (Late st Contact Info) Description 10/07/2024 3:00 PM MEDIA JOB TITLES Office Visit [facility] Medical [facility] [address] [place] [address] Bianka Oneill, PAC [address] [place] [address] documented as of this encounter Visit Diagnoses Not on filedocumented in this encounter Additional Health Concerns Assessment Noted Time PHQ-9 Depression Total Score: 6 08/18/20 22 8:00 AM MEDIA JOB TITLES documented as of this encounter Care Teams Bottle Sorter Relationship Specialty Start Date End Date Bianka Oneill PAC [address] [place] [address] PCP - General Physician Security Incident Response Specialist 08/18/22 documented as of this encounter
--- OUTSIDE RECORDS SUMMARY | 2024-09-22 20:29 | XMS_ITS | Encounter Summary ---
Author Organization [facility] [employer] Care Team Providers Care Senior Hris Analyst Name Role Phone Bianka Oneill Primary Care Provider + Encounter Details Date Type Department Care Team (Latest Contact Info) Description 04/17/2023 Travel Social History Tobacco Use Types Packs/Day [...] suspected to have Coronavirus/COVID-19? No / Unsure 04/17/2023 8:33 AM CDT documented as of this encounter Plan of Treatment Upcoming Encounters Date Type Department Care Team (Late st Contact Info) Description 10/07/2024 3:00 PM MOLD CARRIER Office Visit [facility] Medical [facility] [address] [place] [address] Bianka Oneill, PAC [address] [place] [address] documented as of this encounter Visit Diagnoses Not on filedocumented in this encounter Additional Health Concerns Infection Onset Date Last Indicated Resolved Time MRSA 03/23/2023 03/23/2023 Assessment Noted Time PHQ-9 Depression Total Score: 6 08/18/20 22 8:00 AM MOLD CARRIER documented as of this encounter Care Teams Senior Hris Analyst Relationship Specialty Start Date End Date Bianka Oneill PAC [address] [place] [address] PCP - General Physician Peripatologist 08/18/22 documented as of this encounter
--- OUTSIDE RECORDS SUMMARY | 2024-09-22 20:29 | XMS_ITS | Encounter Summary ---
Author Organization [facility] [employer] Care Team Providers Care Dietary Aide Cook Name Role Phone Bianka Oneill Primary Care Provider + Encounter Details Date Type Department Care Team (Latest Contact Info) Description 01/30/2023 Travel Social History Tobacco Use Types Packs/Day [...] suspected to have Coronavirus/COVID-19? No / Unsure 01/30/2023 7:17 AM CDT documented as of this encounter Plan of Treatment Upcoming Encounters Date Type Department Care Team (Late st Contact Info) Description 10/07/2024 3:00 PM GLAZIER METAL FURNITURE Office Visit [facility] Medical Group - Family Medicine [facility] [address] [place] [address] Bianka Oneill PAC [address] [place] [address] documented as of this encounter Visit Diagnoses Not on filedocumented in this encounter Additional Health Concerns Assessment Noted Time PHQ-9 Depression Total Score: 6 08/18/20 22 8:00 AM GLAZIER METAL FURNITURE documented as of this encounter Care Teams Dietary Aide Cook Relationship Specialty Start Date End Date Bianka Oneill PAC [address] [place] [address] PCP - General Physician Classification Inspector 08/18/22 documented as of this encounter
--- OUTSIDE RECORDS SUMMARY | 2024-09-22 20:29 | XMS_ITS | Encounter Summary ---
Author Organization [facility] Address [address] [place] [address] Phone Care Team Providers Care Health And Wellness Sales Consultant Name Role Phone Bianka Oneill Primary Care Provider + Suresh Gleason MD Unavailable Reason for Visit * Reason Comments Medication Refill Encounter Details Date Type Department Care Team (Late st Contact Info) Description 10/29/2022 Refill [facility] [address] [place] [address] Bianka Oneill PAC [address] [place] [address] Medication Refill Social History Tobacco Use Types [...] suspected to have Coronavirus/COVID-19? No / Unsure 10/29/2022 10:54 AM DRAPERY SUPERVISOR documented as of this encounter Miscellaneous Notes * Telephone Encounter - Bianka Oneill PAC - 11/25/2022 12:27 PM DRAPERY SUPERVISOR Duplicate ERY SUPERVISOR * Telephone Encounter - Liset Fisher RN - 10/31/2022 8:30 AM CST Medication failed the protocol, provider to review and approve the medication order if appropriate. Requested Prescriptions Pending Prescriptions Disp Refills celecoxib (CeleBREX) 200 MG Capsule [Pharmacy Med Name: CELECOXIB 200MG CAPSULES] 60 Capsule Sig: TAKE 1 CAPSULE BY MOUTH TWICE DAILY NSAIDs Protocol Failed - 10/29/2022 7:43 PM Failed - No active on record Failed - No matching NSAID med order in past 45 days Matching medication order placed on 09/30/2022 4:17 PM Order [id number]: celecoxib (CeleBREX) 200 MG Capsule (For orders placed between 09/16/2022 8:30 AM and 10/31/2022 8:30 AM) Passed - Normal serum creatinine in past 12 months CREATININE, BLOOD Date Value Ref Range Status 10/29/2022 0.47 0.40 - 1.00 mg/dL Final Passed - No positive test in the past 12 months or most recent test was negative Passed - Visit with relevant provider in past 12 months or upcoming 90 days Recent Visits Date Type Provider Dept 10/21/22 Office Visit Bianka Oneill PAC [facility] 09/30/22 Office Visit Bianka Oneill PAC [facility] 08/18/22 Office Visit Bianka Oneill PAC [facility] Showing recent visits within past 365 days and meeting all other requirements Future Appointments Date Type Provider Dept 11/29/22 Appointment Bianka Oneill PAC [facility] Showing future appointments within next 90 days and meeting all other requirements Passed - AST less than 55 or ALT less than 90 in past 12 months SGOT (AST) Date Value Ref Range Status 10/29/2022 21 <=32 U/L Final SGPT (ALT) Date Value Ref Range Status 10/29/2022 20 <=41 U/L Final Passed - HGB greater than 10 or HCT greater than 30 in past 12 months HEMOGLOBIN (HGB) Date Value Ref Range Status 10/29/2022 11.3 (L) 12.0 - 15.8 g/dL Final HEMATOCRIT (HCT) Date Value Ref Range Status 10/29/2022 38.0 36.0 - 47.0 % Final ERY SUPERVISOR documented in this encounter Plan of Treatment Upcoming Encounters Date Type Department Care Team (Late st Contact Info) Description 10/07/2024 3:00 PM DRAPERY SUPERVISOR Office Visit [facility] Medical Group - Family [facility] [address] [place] [address] Bianka Oneill PAC [address] [place] [address] documented as of this encounter Visit Diagnoses Not on filedocumented in this encounter Additional Health Concerns Infection Onset Date Last Indicated Resolved Time MRSA 03/23/2023 03/23/2023 Assessment Noted Time PHQ-9 Depression Total Score: 6 08/18/20 8:00 AM DRAPERY SUPERVISOR documented as of this encounter Care Teams Health And Wellness Sales Consultant Relationship Specialty Start Date End Date Bianka Oneill PAC [address] [place] [address] PCP - General Physician Traffic Technician 08/18/22 Suresh Gleason MD [address] [facility] [address] [address] Consulting Physician General Surgery 03/11/24 documented as of this encounter
--- OUTSIDE RECORDS SUMMARY | 2024-09-22 20:29 | XMS_ITS | Encounter Summary ---
Author Organization [facility] [employer] Care Team Providers Care Commercial Analyst Name Role Phone Bianka Oneill Primary Care Provider + Encounter Details Date Type Department Care Team (Latest Contact Info) Description 02/06/2023 Travel Social History Tobacco Use Types Packs/Day [...] suspected to have Coronavirus/COVID-19? No / Unsure 02/06/2023 11:28 AM CDT documented as of this encounter Plan of Treatment Upcoming Encounters Date Type Department Care Team (Late st Contact Info) Description 10/07/2024 3:00 PM LINE CONTROLLER Office Visit [facility] Medical Group - Family Medicine [facility] [address] [place] [address] Bianka Oneill PAC [address] [place] [address] documented as of this encounter Visit Diagnoses Not on filedocumented in this encounter Additional Health Concerns Assessment Noted Time PHQ-9 Depression Total Score: 6 08/18/20 22 8:00 AM LINE CONTROLLER documented as of this encounter Care Teams Commercial Analyst Relationship Specialty Start Date End Date Bianka Oneill PAC [address] [place] [address] PCP - General Physician Fur Tinter 08/18/22 documented as of this encounter
--- OUTSIDE RECORDS SUMMARY | 2024-09-22 20:29 | XMS_ITS | Encounter Summary ---
Author Organization [facility] Address [address] [place] [address] Phone Care Team Providers Care Cattle And Wheat Farmer Name Role Phone Bianka Oneill Primary Care Provider + Reason for Visit * Reason Comments Follow-up 6 week Encounter Details Date Type Department Care Team (Late st Contact Info) Description 02/24/2023 9:15 AM CDT Office Visit [facility] Medical Group - Family Medicine [facility] [address] [place] [phone] Bianka Oneill PAC [address] [place] [address] Nausea (Primary Dx); Anxiety; BMI 40.0-44.9, adult (HCC) Discharge Disposition: Discharged to home or Selfcare [...] suspected to have Coronavirus/COVID-19? No / Unsure 02/24/2023 9:00 AM CDT documented as of this encounter Last Filed Vital Signs Vital Sign Reading Time Taken Comments Blood Pressure 110/78 02/24/2023 9:03 AM CDT Pulse 86 02/24/2023 9:03 AM CDT Temperature 36.6 ??C (97.8 ??F) 02/24/2023 9:03 AM CD T Respiratory Rate - - Oxygen Saturation 99% 02/24/2023 9:03 AM CDT Inhaled Oxygen Concentration - - Weight 103.4 kg (228 lb) 02/24/2023 9:03 AM CDT Height 160.7 cm (5' 3.25 ) 02/24/2023 9:03 AM CD T Body Mass Index 40.07 02/24/2023 9:03 AM CDT Body Mass Index Percentile 98.89% 02/24/2023 9:0 3 AM CDT Growth Chart: CDC (Girls, 2- 20 Years) documented in this encounter Progress Notes * Sandra Lira, CARD PUNCHER - 02/24/2023 9:15 AM CDT Annalise Vogt, 17 y.o., female is here for Follow-up (6 week ) Medication Refills: Patient reports/denies need for medication refills. Orders Pended: no Requested Prescriptions No prescriptions requested or ordered in this encounter Home Medications Medication Sig Start Date End Date Taking? Authorizing Provider Docusate Calcium (STOOL SOFTENER PO) Take by mouth. Yes Debbie Khan MD escitalopram (LEXAPRO) 20 MG Tablet Take 1 Tablet by mouth daily. 01/13/23 Yes Bianka Oneill PAC ferrous sulfate 325 (65 Fe) MG Tablet Take 1 Tablet by mouth 2 times daily. 08/19/22 Yes Bianka Oneill PAC meloxicam (MOBIC) 15 MG Tablet 12/30/22 Yes Debbie Khan MD polyethylene glycol (GLYCOLAX) 17 GM/SCOOP Powder Take 17 g by mouth. Yes Debbie Khan MD traMADol (ULTRAM) 50 MG Tablet Take 50 mg by mouth every 6 hours as needed. PRN Yes Provider, MD Debbie There are no discontinued [...] C Virus (HCV) Screening Never done ??? Hepatitis A Immunization (1 of 2 - 2-dose series) Never done ??? Measles Mumps Rubella (MMR) Immunization (2 of 2 - Standard series) 2008 ??? Meningococcal B Immunization (1 of 2 - Risk Bexsero 2-dose series) Never done ??? Human Papillomavirus (HPV) Immunization (1 - 2-dose series) Never done ??? SARS-COV-2 Immunization (4 - Pfizer series) 03/29/2022 Orders Pended: no The following BPA's have been addressed with the patient today: no BPA's addressed * Bianka Oneill PAC - 02/24/2023 9:15 AM CDT Subjective: Having nausea started on 02/15/23, last vomited few days ago On 02/18/23 seen in ER for UTI, was started on antibiotic, keflex No pain in lower abdomen LMP: 02/20/23 Nausea not related to meals No change in bowel habits Review of Systems Constitutional: Negative for chills and fever. HENT: Negative for congestion, sore throat and trouble swallowing. Respiratory: Negative for cough and shortness of breath. Cardiovascular: Negative for chest pain. Gastrointestinal: Positive for nausea. Negative for abdominal pain, constipation, diarrhea and vomiting. Genitourinary: Negative for difficulty urinating and dysuria. Musculoskeletal: Positive for arthralgias and back pain. Neurological: Negative for dizziness and light-headedness. Objective: Physical Exam Vitals reviewed. Constitutional: Appearance: Normal appearance. She is diaphoretic. HENT: Head: Normocephalic and atraumatic. Eyes: General: [...] and all orders for this visit: Nausea - CMP (COMPREHENSIVE METABOLIC PANEL); Future - COMPLETE BLOOD COUNT (CBC) WITH DIFF; Future Anxiety - hydrOXYzine (ATARAX) 25 MG Tablet; Take 1 Tablet by mouth every 6 hours as needed for Anxiety. BMI 40.0-44.9, adult (HCC) - Semaglutide-Weight Management (Wegovy) 0.25 MG/0.5ML Solution Auto-injector; 0.25 mg by Subcutaneous route every 7 days. Other orders - traMADol (ULTRAM) 50 MG Tablet; Take 50 mg by mouth every 6 hours as needed. PRN Labs rule out any abnormal electrolytes or elevated white count to indicate infection Discussed anxiety, can continue lexapro and use atarax as needed Discussed weight loss, will continue with lifestyle change, work on diet and exercise, suggest start medication wegovy, discussed use and possible SE. Notify if any problems with medication documented in this encounter Plan of Treatment Upcoming Encounters Date Type Department Care Team (Late st Contact Info) Description 10/07/2024 3:00 PM LINING CASER Office Visit [facility] Medical Group - Family [facility] [address] [place] [address] Bianka Oneill PAC [address] [place] [address] documented as of this encounter Results * (ABNORMAL) CMP (COMPREHENSIVE METABOLIC PANEL) (02/24/2023 10:20 AM CDT) SODIUM 140 136 - 144 mmol/L 02/24/2023 12:[address] [facility] POTASSIUM 3.7 3.5 - 5.1 mmol/L 02/24/2023 12:[address] [facility] CHLORIDE 105 100 - 110 mmol/L 02/24/2023 12:[address] [facility] CO2, VENOUS 24 22 - 32 mmol/L 02/24/2023 12:[address] [facility] ANION GAP 14.7 8.0 - 20.0 mmol/L 02/24/2023 12:[address] [facility] GLUCOSE 130(H) 70 - 99 mg/dL 02/24/2023 12:[address] [facility] BUN 9 6 - 20 mg/dL 02/24/2023 12:[address] [facility] CREATININE, BLOOD 0.59 0.40 - 1.00 mg/dL 02/24/2023 12:[address] [facility] BUN/CREATININE RATIO 15 12 - 20 ratio 02/24/2023 12:[address] [facility] TOTAL PROTEIN 7.2 6.0 - 8.3 g/dL 02/24/2023 12:[address] [facility] ALBUMIN 4.6 3.5 - 5.2 g/dL 02/24/2023 12:[address] [facility] A/G RATIO 1.8 1.0 - 2.0 02/24/2023 12:[address] [facility] CALCIUM 9.4 8.9 - 10.3 mg/dL 02/24/2023 12:[address] [facility] T BILI <0.3 <=1.2 mg/dL 02/24/2023 12:[address] [facility] SGOT (AST) 16 <=32 U/L 02/24/2023 12:[address] [facility] SGPT (ALT) 16 <=41 U/L 02/24/2023 12:57 PM CDT [facility] ALKALINE PHOSPHATASE 86 45 - 87 U/L 02/24/2023 12:57 PM CDT [facility] IS THE PATIENT REQUIRED TO BE FASTING? No 02/24/2023 12:57 PM CDT [facility] GFR, ESTIMATED >60 >=60 02/24/2023 12:57 PM CDT [facility] Comment: Creatinine Clearance is the preferred criteria for selecting drug dose adjustments in renally impaired patients. ??The GFR is provided as additional pertinent clinical information. GFR is reported in mL/min/1.73 sq m. Calculation based on the Chronic Kidney Disease Epidemiology Collaboration (CKD- EPI) equation refit without adjustment for race. UNABLE TO CALCULATE GFR, EST. 023 12:57 PM CDT [facility] GFR, EST. NONAFRICAN 02/24/2023 12:57 PM CDT [facility] Blood Venipuncture / Unknown 02/24/2023 10:20 AM CDT 02/24/2023 11:32 AM CDT us Bianka VAIL CHEMISTRY ORDERABLES Fin al Result [facility] [address] [place] [address] documented in this encounter Visit Diagnoses Diagnosis Nausea- Primary Nausea alone Anxiety Anxiety state, unspecified BMI 40.0-44.9, adult (HCC) Body Mass Index 40.0-44.9, adult documented in this encounter Additional Health Concerns Assessment Noted Time PHQ-9 Depression Total Score: 6 08/18/20 22 8:00 AM LINING CASER documented as of this encounter Care Teams Cattle And Wheat Farmer Relationship Specialty Start Date End Date Bianka Oneill PAC [address] [place] [address] PCP - General Physician Stove Refinisher 08/18/22 documented as of this encounter
--- OUTSIDE RECORDS SUMMARY | 2024-09-22 20:29 | XMS_ITS | Encounter Summary ---
Author Organization [facility] Address [address] [place] [address] Phone Care Team Providers Care Paint Stripper Name Role Phone Bianka Oneill PAC Primary Care Provider + Reason for Visit * Reason Onset Date Comments Urinary Pain 03/01/2023 Urinary Urgency 03/01/2023 Encounter Details Date Type Department Care Team (Late st Contact Info) Description 03/01/2023 Nurse Triage [facility] [address] [place] [address] Bianka Oneill, PAC [address] [place] [address] Urinary Pain; Urinary Urgency Social History Tobacco Use Types Packs/Day Years [...] encounter Miscellaneous Notes * Telephone Encounter - Deysi Hook RN - 03/01/2023 12:41 PM CDT SITUATION: Urinary pain BACKGROUND: ED visit on 02/18/23 at [facility] for urinary pressure when urinating. Finished the course of Cephalexin on 02/26/23. Symptoms started again on 02/28/23. ASSESSMENT: Symptoms: pain when urinating, not fully emptying her bladder, urinary urgency, urinating small amounts of urine flow. Has nausea but no vomiting Chronic low back pain - not worsening Denies genital area injury, vaginal discharge. Pain (0-10): urinary pain-9-10/10 Temp (route, time): unsure because she has no thermometer but has occasional cold sweats Treatment with response: Azo with no relief. LMP// (female only): 02/20/23 RECOMMENDATION: Patient triages to go to office now. Patient voiced understanding and is agreeable. All Patient Appointments Provider Department Dept Phone 03/01/2023 1:45 PM [facility] - Family Medicine [facility] [phone] See care advice and disposition for guideline. First positive answer recorded, all responses to prior questions were negative. If symptoms increase, change or if new symptoms develop, call your PCP or call back. Recommendation based on caller information and is not a diagnosis. Verified and reviewed all triage information with caller. Teach-back method utilized. Reason for Disposition ??? Pain or burning with passing urine (urination) and female ??? SEVERE pain with urination Protocols used: URINARY UPOCMDEZ-A-DQ, URINATION PAIN - FEMALE-A-OH STANDING ORDER AVAILABLE * Telephone Encounter - Kimberly Guzmán - 03/01/2023 12:39 PM CDT Symptom: Urine Symptoms Outcome: Transfer to pit and auxiliaries supervisor queue Reason: Severe pain when passing urine (pee) The caller accepted this outcome documented in this encounter Plan of Treatment Upcoming Encounters Date Type Department Care Team (Late st Contact Info) Description 10/07/2024 3:00 PM SCHOOL FUNDRAISING DIRECTOR Office Visit [facility] Medical Group - Family [facility] [address] [place] [address] Bianka Oneill PAC [address] [place] [address] documented as of this encounter Visit Diagnoses Not on filedocumented in this encounter Additional Health Concerns Assessment Noted Time PHQ-9 Depression Total Score: 6 08/18/20 8:00 AM SCHOOL FUNDRAISING DIRECTOR documented as of this encounter Care Teams Paint Stripper Relationship Specialty Start Date End Date Bianka Oneill PAC [address] [place] [address] PCP - General Physician Air Traffic Controller Center 08/18/22 documented as of this encounter
--- OUTSIDE RECORDS SUMMARY | 2024-09-22 20:29 | XMS_ITS | Encounter Summary ---
Author Organization [facility] Address [address] [place] [address] Phone Care Team Providers Care Mill Attendant Name Role Phone Bianka Oneill Primary Care Provider + Encounter Details Date Type Department Care Team (Late st Contact Info) Description 04/17/2023 10:40 AM CDT Lab [facility] [address] [facility] [address] [place] [address] [facility] Lab/Ancillary Generalized abdominal pain Discharge Disposition: Discharged to home or Selfcare [...] as of this encounter Progress Notes * Crystal Yee - 04/17/2023 10:40 AM CDT Annalise presents for lab draw per order of bianka oneill dated . Specimen collected from left antecubital without incident. [facility] documented in this encounter Plan of Treatment Upcoming Encounters Date Type Department Care Team (Late st Contact Info) Description 10/07/2024 3:00 PM COMMISSIONING AGENT [facility] Visit [facility] [address] [place] [address] Bianka Oneill, PAC [address] [place] [address] documented as of this encounter Procedures Procedure Name Priority Date/Time Associated Diagnosis Comments URINALYSIS REFLEX IF INDICATED BY ABNORMAL RESULTS Routine 04/17/2023 9:49 AM CDT Generalized abdominal pain LIPASE Routine 04/17/2023 9:49 AM CDT Generalized abdominal pain CULTURE, URINE Routine 04/17/2023 9:49 AM CDT Generalized abdominal pain AMYLASE Routine 04/17/2023 9:49 AM CDT Generalized abdominal pain documented in this encounter Results * CULTURE, URINE (04/17/2023 9:49 AM CDT) CULTURE RESULTS GROUP B STREPTOCOCCUS 04/19/2023 12:04 AM CDT [facility] Comment: DRUG OF CHOICE IS AMPICILLIN OR PENICILLIN ALSO MIXED GROWTH OF DISTAL URETHRA CONTAMINANTS. Urine URINE SPECIMEN COLLECTION, CLEAN CATCH / Unknown Non-Phlebotomy Collection / Unknown 04/17/2023 9:49 AM CDT 04/17/2023 9:49 AM CDT us Bianka Oneill PAC MICROBIOLOGY - GENERAL O RDERABLES Final Result [facility] [address] [place] [address], [place] * (ABNORMAL) URINALYSIS REFLEX IF INDICATED BY ABNORMAL RESULTS (04/17/2023 9:49 AM CDT) SPECIFIC GRAVITY 1.015 1.003 - 1.030 04/17/2023 1:11 PM CDT [facility] URINE PH 7.0 5.0 - 9.0 04/17/2023 1:11 PM CDT [facility] WBC ESTERASE 25 /ul(A) Negative 04/17/2023 1:11 PM CDT [facility] NITRITE Negative Negative 04/17/2023 1:11 PM CDT [facility] PROTEIN, RANDOM URINE 15 mg/dL(A) Negative 04/17/2023 1:11 PM CDT [facility] URINE GLUCOSE, QUAL Negative Negative 04/17/2023 1:11 PM CDT [facility] URINE KETONES Negative Negative 04/17/2023 1:11 PM CDT [facility] UROBILINOGEN Normal Normal mg/dL 04/17/2023 1:11 PM CDT [facility] URINE BLOOD Negative Negative carter/ul 04/17/2023 1:11 PM CDT [facility] URINALYSIS COLOR Yellow 04/17/20 23 1:11 PM CDT [facility] URINALYSIS CLARITY Slightly Cloudy 04/17/2023 1:11 PM CDT [facility] WBC (Urine) 6-10(A) Negative, 0-5 /hpf 04/17/2023 1:11 PM CDT [facility] URINE RBC'S 0-2 Negative, 0-2 /hpf 04/17/2023 1:11 PM CDT [facility] EPITHELIAL CELLS Large amount squamous /lpf 04/17/2023 1:11 PM CDT [facility] BACTERIA, URINE Few(A) Negative /hpf 04/17/2023 1:11 PM CDT [facility] CRYSTALS Calcium oxalate 04/17/2023 1:11 PM CDT [facility] Urine URINE SPECIMEN COLLECTION, CLEAN CATCH / Unknown Non-Phlebotomy Collection / Unknown 04/17/2023 9:49 AM CDT 04/17/2023 9:49 AM CDT us Josie Fritcher PAC URINE ORDERABLES Final R esult Performing Organization Address City/[facility]/ZIP Co de Phone Number [facility] [address] [place] [address] * LIPASE (04/17/2023 9:49 AM CDT) LIPASE 28.7 13 - 60 U/L 04/17/2023 1:19 PM CDT [facility] Blood Venipuncture / Unknown 04/17/2023 9:49 AM CDT 04/17/2023 9:49 AM CDT us JosieBety Oneill PAC CHEMISTRY ORDERABLES Fin al Result Performing Organization Address City/[facility]/ZIP Co de Phone Number [facility] [address] [place] [address] * AMYLASE (04/17/2023 9:49 AM CDT) AMYLASE 34 28 - 100 U/L 04/17/2023 1:19 PM CDT [facility] Blood Venipuncture / Unknown 04/17/2023 9:49 AM CDT 04/17/2023 9:49 AM CDT us Bianka Diasrich PAC CHEMISTRY ORDERABLES Fin al Result Performing Organization Address City/[facility]/ZIP Co de Phone Number [facility] [address] [place] [address] documented in this encounter Visit Diagnoses Diagnosis Generalized abdominal pain Abdominal pain, generalized documented in this encounter Additional Health Concerns Infection Onset Date Last Indicated Resolved Time MRSA 03/23/2023 03/23/2023 Assessment Noted Time PHQ-9 Depression Total Score: 6 08/18/20 22 8:00 AM COMMISSIONING AGENT documented as of this encounter Care Teams Mill Attendant Relationship Specialty Start Date End Date Bianka Oneill PAC [address] [place] [address] PCP - General Physician Clutch Mechanic 08/18/22 documented as of this encounter
--- OUTSIDE RECORDS SUMMARY | 2024-09-22 20:29 | XMS_ITS | Encounter Summary ---
Author Organization [facility] [employer] Care Team Providers Care Garnett Mechanic Name Role Phone Bianka Oneill Primary Care Provider + Encounter Details Date Type Department Care Team (Latest Contact Info) Description 10/29/2022 Travel Social History Tobacco Use Types Packs/Day [...] Coronavirus/COVID-19? No / Unsure 10/29/2022 10:54 AM MONEY MARKET CLERK documented as of this encounter Plan of Treatment Upcoming Encounters Date Type Department Care Team (Late st Contact Info) Description 10/07/2024 3:00 PM MONEY MARKET CLERK Office Visit [facility] Medical Group - Family Medicine [facility] [address] [place] [address] Bianka Oneill PAC [address] [place] [address] documented as of this encounter Visit Diagnoses Not on filedocumented in this encounter Additional Health Concerns Assessment Noted Time PHQ-9 Depression Total Score: 6 08/18/20 22 8:00 AM MONEY MARKET CLERK documented as of this encounter Care Teams Garnett Mechanic Relationship Specialty Start Date End Date Bianka Oneill PAC [address] [place] [address] PCP - General Physician Gold Prospector 08/18/22 documented as of this encounter
--- OUTSIDE RECORDS SUMMARY | 2024-09-22 20:29 | XMS_ITS | Encounter Summary ---
Author Organization [facility] Address [address] [place] [address] Phone Care Team Providers Care Finishing Frame Runner Name Role Phone Bianka Oneill Primary Care Provider + Reason for Visit * Reason Onset Date Comments Advice Only 04/13/2023 Follow-up 04/13/2023 Encounter Details Date Type Department Care Team (Late st Contact Info) Description 04/13/2023 Telephone [facility] [address] [place] [address] Bianka Oneill, PAC [address] [place] [address] Advice Only; Follow-up Social History Tobacco Use Types Packs/Day Years [...] Telephone Encounter - Bianka Oneill PAC - 04/14/2023 11:12 AM CDT Yes would recommend in office evaluation for this * Telephone Encounter - Alverto Dale RN - 04/13/2023 2:03 PM CDT SITUATION: Pre-procedure concern BACKGROUND: MRSA onset of 03/23/23 per chart (unable to find positive swab result) Patient scheduled for left hip surgery on 04/20 Patient states she is taking deoxycycline with only two days of antibiotics remaining ASSESSMENT: Patient states overall the wound has healed and is no longer open RECOMMENDATION: Patient was told by surgery office to follow up with PCP to ensure that MRSA has completely healed. Patient states she will send pictures of wounds via MyChart. Patient's infection was addressed during office visit on 03/23/23 Would provider like for patient to be seen in the office? documented in this encounter Plan of Treatment Upcoming Encounters Date Type Department Care Team (Late st Contact Info) Description 10/07/2024 3:00 PM AUTOMOTIVE GLASS SPECIALIST Office Visit [facility] Medical Group - Family [facility] [address] [place] [address] Bianka Oneill PAC [address] [place] [address] documented as of this encounter Visit Diagnoses Not on filedocumented in this encounter Additional Health Concerns Infection Onset Date Last Indicated Resolved Time MRSA 03/23/2023 03/23/2023 Assessment Noted Time PHQ-9 Depression Total Score: 6 08/18/20 22 8:00 AM AUTOMOTIVE GLASS SPECIALIST documented as of this encounter Care Teams Finishing Frame Runner Relationship Specialty Start Date End Date Bianka Oneill, YARED [address] [place] [address] PCP - General Physician Manager Business Banking 08/18/22 documented as of this encounter
--- OUTSIDE RECORDS SUMMARY | 2024-09-22 20:29 | XMS_ITS | Encounter Summary ---
Author Organization [facility] [employer] Care Team Providers Care Bulldozer Press Operator Name Role Phone Bianka Oneill Primary Care Provider + Encounter Details Date Type Department Care Team (Latest Contact Info) Description 03/01/2023 Travel Social History Tobacco Use Types Packs/Day [...] st Contact Info) Description 10/07/2024 3:00 PM CIGAR MACHINE FEEDER Office Visit [facility] Medical [facility] [address] [place] [address] Bianka Oneill, PAC [address] [place] [address] documented as of this encounter Visit Diagnoses Not on filedocumented in this encounter Additional Health Concerns Assessment Noted Time PHQ-9 Depression Total Score: 6 08/18/20 22 8:00 AM CIGAR MACHINE FEEDER documented as of this encounter Care Teams Bulldozer Press Operator Relationship Specialty Start Date End Date Bianka Oneill PAC [address] [place] [address] PCP - General Physician Director Summer Sessions 08/18/22 documented as of this encounter
--- OUTSIDE RECORDS SUMMARY | 2024-09-22 20:29 | XMS_ITS | Encounter Summary ---
Author Organization [facility] [employer] Care Team Providers Care Primary School Teacher Name Role Phone Biakna Oneill Primary Care Provider + Encounter Details Date Type Department Care Team (Latest Contact Info) Description 11/29/2022 Travel Social History Tobacco Use Types Packs/Day [...] st Contact Info) Description 10/07/2024 3:00 PM RING FACER Office Visit [facility] Medical Group - Family Medicine [facility] [address] [place] [address] Bianka Oneill PAC [address] [place] [address] documented as of this encounter Visit Diagnoses Not on filedocumented in this encounter Additional Health Concerns Assessment Noted Time PHQ-9 Depression Total Score: 6 08/18/20 22 8:00 AM RING FACER documented as of this encounter Care Teams Primary School Teacher Relationship Specialty Start Date End Date Bianka Oneill PAC [address] [place] [address] PCP - General Physician Qa Intern 08/18/22 documented as of this encounter
--- OUTSIDE RECORDS SUMMARY | 2024-09-22 20:29 | XMS_ITS | Encounter Summary ---
Author Organization [facility] [employer] Care Team Providers Care Florist Designer Name Role Phone Bianka Oneill Primary Care Provider + Encounter Details Date Type Department Care Team (Latest Contact Info) Description 03/15/2023 Travel Social History Tobacco Use Types Packs/Day [...] suspected to have Coronavirus/COVID-19? No / Unsure 03/15/2023 9:24 AM CDT documented as of this encounter Plan of Treatment Upcoming Encounters Date Type Department Care Team (Late st Contact Info) Description 10/07/2024 3:00 PM LOADER Office Visit [facility] Medical [facility] [address] [place] [address] Bianka Oneill PAC [address] [place] [address] documented as of this encounter Visit Diagnoses Not on filedocumented in this encounter Additional Health Concerns Assessment Noted Time PHQ-9 Depression Total Score: 6 08/18/20 22 8:00 AM LOADER documented as of this encounter Care Teams Florist Designer Relationship Specialty Start Date End Date Bianka Oneill PAC [address] [place] [address] PCP - General Physician Development Manager 08/18/22 documented as of this encounter
--- OUTSIDE RECORDS SUMMARY | 2024-09-22 20:29 | XMS_ITS | Encounter Summary ---
Author Organization [facility] [employer] Care Team Providers Care Senior Commissions Analyst Name Role Phone Bianka Oneill Primary Care Provider + Encounter Details Date Type Department Care Team (Latest Contact Info) Description 02/08/2023 Travel Social History Tobacco Use Types Packs/Day [...] suspected to have Coronavirus/COVID-19? No / Unsure 02/08/2023 9:27 AM CDT documented as of this encounter Plan of Treatment Upcoming Encounters Date Type Department Care Team (Late st Contact Info) Description 10/07/2024 3:00 PM CUSTOMER TECHNICAL SERVICES MANAGER Office Visit [facility] Medical Group - Family Medicine [facility] [address] [place] [address] Bianka Oneill PAC [address] [place] [address] documented as of this encounter Visit Diagnoses Not on filedocumented in this encounter Additional Health Concerns Assessment Noted Time PHQ-9 Depression Total Score: 6 08/18/20 22 8:00 AM CUSTOMER TECHNICAL SERVICES MANAGER documented as of this encounter Care Teams Senior Commissions Analyst Relationship Specialty Start Date End Date Bianka Oneill PAC [address] [place] [address] PCP - General Physician Conference And Event Organiser 08/18/22 documented as of this encounter
--- OUTSIDE RECORDS SUMMARY | 2024-09-22 20:29 | XMS_ITS | Encounter Summary ---
Author Organization [facility] [employer] Care Team Providers Care Chain Mortiser Operator Name Role Phone Bianka Oneill Primary Care Provider + Encounter Details Date Type Department Care Team (Latest Contact Info) Description 02/24/2023 Travel Social History Tobacco Use Types Packs/Day [...] st Contact Info) Description 10/07/2024 3:00 PM ELECTRONIC DESIGN ENGINEER Office Visit [facility] Medical Group - Family Medicine [facility] [address] [place] [address] Bianka Oneill PAC [address] [place] [address] documented as of this encounter Visit Diagnoses Not on filedocumented in this encounter Additional Health Concerns Assessment Noted Time PHQ-9 Depression Total Score: 6 08/18/20 22 8:00 AM ELECTRONIC DESIGN ENGINEER documented as of this encounter Care Teams Chain Mortiser Operator Relationship Specialty Start Date End Date Bianka Oneill PAC [address] [place] [address] PCP - General Physician Javascript Ui Developer 08/18/22 documented as of this encounter
--- OUTSIDE RECORDS SUMMARY | 2024-09-22 20:29 | XMS_ITS | Encounter Summary ---
Author Organization [facility] Address [address] [place] [address] Phone Care Team Providers Care Agile Scrum Coach Name Role Phone Bianka Oneill Primary Care Provider + Reason for Visit * Reason Onset Date Comments Medication Refill 11/24/2022 Encounter Details Date Type Department Care Team (Late st Contact Info) Description 11/24/2022 MyChart RX Renewal [facility] - Family [facility] [address] [place] [address] Bianka Oneill PAC [address] [place] [address] Medication Renewal Reviewed Social History Tobacco Use Types Packs/Day Years [...] Coronavirus/COVID-19? No / Unsure 10/29/2022 10:54 AM DIRECTOR PRESALES documented as of this encounter Miscellaneous Notes * Telephone Encounter - Liset Fisher RN - 11/24/2022 4:16 PM CST Medication failed the protocol, provider to review and approve the medication order if appropriate. Requested Prescriptions Pending Prescriptions Disp Refills celecoxib (CeleBREX) 200 MG Capsule 60 Capsule 0 Sig: Take 1 Capsule by mouth 2 times daily. NSAIDs Protocol Failed - 11/24/2022 4:10 PM Failed - No active on record Passed - Normal serum creatinine in past [...] 09/30/22 Office Visit Bianka Oneill PAC [facility] 08/18/22 Office Visit Bianka Oneill PAC [facility] Showing recent visits within past 365 days and meeting all other requirements Future Appointments Date Type Provider Dept 11/29/22 Appointment Bianka Oneill PAC [facility] Showing future appointments within next 90 days and meeting all other requirements Passed - No matching NSAID med order in past 45 days No matching medication orders between 10/10/2022 4:16 PM and 11/24/2022 4:16 PM Passed - AST less than 55 or [...] 10/29/2022 38.0 36.0 - 47.0 % Final CTOR PRESALES documented in this encounter Plan of Treatment Upcoming Encounters Date Type Department Care Team (Late st Contact Info) Description 10/07/2024 3:00 PM DIRECTOR PRESALES Office Visit [facility] Medical Group - Family [facility] [address] [place] [address] Bianka Oneill PAC [address] [place] [address] documented as of this encounter Visit Diagnoses Not on filedocumented in this encounter Additional Health Concerns Assessment Noted Time PHQ-9 Depression Total Score: 6 08/18/20 8:00 AM DIRECTOR PRESALES documented as of this encounter Care Teams Agile Scrum Coach Relationship Specialty Start Date End Date Bianka Oneill PAC [address] [place] [address] PCP - General Physician Control Valve Technician 08/18/22 documented as of this encounter
--- OUTSIDE RECORDS SUMMARY | 2024-09-22 20:29 | XMS_ITS | Encounter Summary ---
Author Organization [facility] Address [address] [place] [address] Phone Care Team Providers Care Manufacturing Machine Operator Name Role Phone Bianka Oneill Primary Care Provider + Reason for Visit * Reason Comments Preventive Care Encounter Details Date Type Department Care Team (Late st Contact Info) Description 01/13/2023 1:45 PM CDT Office Visit [facility] Medical Group - Family [facility] [address] [place] [address] Bianka Oneill PAC [address] [place] [address] Well adult exam (Primary Dx); Encounter for immunization; Anxiety and depression; Screening-pulmonary TB; Immunity status testing Discharge Disposition: Discharged to home or Selfcare [...] Sign Reading Time Taken Comments Blood Pressure 118/82 01/13/2023 1:32 PM CDT Pulse 87 01/13/2023 1:32 PM CDT Temperature 36.7 ??C (98 ??F) 01/13/2023 1:32 PM CDT Respiratory Rate - - Oxygen Saturation 98% 01/13/2023 1:32 PM CDT Inhaled Oxygen Concentration - - Weight 105.7 kg (233 lb) 01/13/2023 1:32 PM CDT Height 160.7 cm (5' 3.25 ) 01/13/2023 1:32 PM CD T Body Mass Index 40.95 01/13/2023 1:32 PM CDT Body Mass Index Percentile 99.13% 01/13/2023 1:3 2 PM CDT Growth Chart: [facility] (Girls, 2- 20 Years) documented in this encounter Patient Instructions * Patient Instructions* Bianka Oneill PAC - 01/13/2023 1:45 PM CDT Needs number to hematology to schedule appointment documented in this encounter Progress Notes * Sandra Lira CMA - 01/13/2023 1:45 PM CDT Annalise Vogt is a 17 y.o. female with current BMI: Body mass index is 40.95 kg/m??. Interventions discussed including: encourage daily physical activity and well- balanced diet. * Sandra Lira CMA - 01/13/2023 1:45 PM CDT Annalise Vogt, 17 y.o., female is here for Preventive Care Medication Refills: Patient reports/denies need for medication refills. Orders Pended: no Requested Prescriptions No prescriptions requested or ordered in this encounter Home Medications Medication Sig Start Date End Date Taking? Authorizing Provider Docusate Calcium (STOOL SOFTENER PO) Take by mouth. Yes Debbie Khan MD escitalopram (LEXAPRO) 10 MG Tablet Take 1 Tablet by mouth daily. 09/30/22 Yes Bianka Oneill PAC ferrous sulfate 325 (65 Fe) MG Tablet Take 1 Tablet by mouth 2 times daily. 08/19/22 Yes Bianka Oneill PAC meloxicam (MOBIC) 15 MG Tablet 12/30/22 Yes Debbie Khan MD polyethylene glycol (GLYCOLAX) 17 GM/SCOOP Powder Take 17 g by mouth. Yes Debbie Khan MD Medications Discontinued During This Encounter Medication Reason ??? celecoxib (CeleBREX) 200 MG Capsule Med List Clean Up I have reviewed the home medication list [...] (4 - Booster for Pfizer series) 03/29/2022 Orders Pended: no The following BPA's have been addressed with the patient today: BMI * Sandra Lira CMA - 01/13/2023 1:45 PM CDT Annalise is here for TDAP immunizations per order of Bianka Oneill PA-C dated 01/13/23. Administered in left deltoid . Vaccine Information Sheet(s) were given on 01/13/23. Verbal consent was obtained. Annalise tolerated the immunization well without incident. See Immunization activity for details. * Sandra Lira CMA - 01/13/2023 1:45 PM CDT TB serum administered in Right ventral forearm. There was no bleeding. Patient tolerated it well. To be read 01/16/23. Appointment made. yes * Bianka Oneill PAC - 01/13/2023 1:45 PM CDT Subjective: Patient in the office today for cpe for school, RT program Reviewed past medical history, has left hip pain, she is seeing orthopedic, also discussed anxiety,lexapro used to help better would like to increase dose of medication, no SE from medication Review of Systems Constitutional: Negative for chills and fever. HENT: Negative for sore throat and trouble swallowing. Eyes: Negative for visual disturbance. Respiratory: Negative for cough and shortness of breath. Cardiovascular: Negative for chest pain and palpitations. Gastrointestinal: Negative for abdominal pain. Endocrine: Negative for polyuria. Genitourinary: Negative for dysuria. Musculoskeletal: Positive for arthralgias. Skin: Negative for rash. Neurological: Negative for dizziness, weakness and light-headedness. Psychiatric/Behavioral: Negative for sleep disturbance. The patient is nervous/anxious. Objective: Physical Exam Vitals reviewed. Constitutional: Appearance: Normal appearance. She is not ill-appearing. HENT: Head: Normocephalic and atraumatic. Right Ear: Tympanic membrane normal. Left Ear: Tympanic membrane normal. Nose: Nose normal. Mouth/Throat: Mouth: Mucous membranes are moist. Eyes: General: Right eye: No discharge. Left eye: No discharge. Extraocular Movements: Extraocular movements intact. Cardiovascular: Rate and Rhythm: Normal rate and regular rhythm. Heart sounds: No murmur heard. Pulmonary: Effort: Pulmonary effort is normal. No respiratory distress. Breath sounds: Normal breath sounds. No wheezing. Abdominal: General: Bowel sounds are normal. There is no distension. Palpations: Abdomen is soft. Tenderness: There is no abdominal tenderness. Musculoskeletal: General: Normal range of motion. Lymphadenopathy: Cervical: No cervical adenopathy. Skin: General: Skin is warm. Neurological: General: No focal deficit present. Mental Status: She is alert. Psychiatric: Mood and Affect: Mood normal. Assessment and Plan See Diagnoses, Orders, Follow-up, and Instructions .Diagnoses and all orders for this visit: Well adult exam Encounter for immunization - TDAP VACCINE >7YO IM - TDAP IMMUNIZATION QUESTIONS Anxiety and depression - escitalopram (LEXAPRO) 20 MG Tablet; Take 1 Tablet by mouth daily. Screening-pulmonary TB - tuberculin 5 UNIT/0.1ML Solution; 0.1 mL by Intradermal route once for 1 dose. - TB INTRADERMAL TEST Immunity status testing - HERPES ZOSTER (VARICELLA) IGG; Future - RUBEOLA (MEASLES) IGG; Future - MUMPS IGG; Future - RUBELLA IMMUNITY IGG; Future Other orders - meloxicam (MOBIC) 15 MG Tablet - polyethylene glycol (GLYCOLAX) 17 GM/SCOOP Powder; Take 17 g by mouth. Patient will increase lexapro as directed to 20 mg daily, notify if any SE Testing ordered for immunity She will need 2 step TB rtc in 4-6 weeks for recheck on medication Notify if any worsening symptoms documented in this encounter Plan of Treatment Upcoming Encounters Date Type Department Care Team (Late st Contact Info) Description 10/07/2024 3:00 PM CRA OFFICER Office Visit [facility] [address] [place] [address] Bianka Oneill PAC [address] [place] [address] documented as of this encounter Procedures Procedure Name Priority Date/Time Associated Diagnosis Comments TB INTRADERMAL TEST Routine 01/16/2023 Screening-pulmonary TB documented in this encounter Results * TB INTRADERMAL TEST (01/16/2023) TB SKIN TEST negative [facility]INT [facility] (M ANUAL) Final Result * RUBELLA IMMUNITY IGG (01/13/2023 2:59 PM CDT) Pathologist [facility] RUBELLA IMMUNITY Immune Immune, Invalid 01/14/2023 2:36 AM CDT [facility] Blood Venipuncture / Unknown 01/13/2023 2:59 PM CDT 01/13/2023 3:09 PM CDT Narrative [facility] - 01/14/2023 2:36 AM CDT Antibody testing was performed by multiplex flow immunoassay on the BioPlex platform. [facility] [place] CHEMISTRY ORDERABLES Fin al Result Performing Organization Address City/State/[facility] Co de Phone Number [facility] [address] [place] [address], * MUMPS IGG (01/13/2023 2:59 PM CDT) Pathologist [facility] Mumps Ab IgG 2.5 >=1.1 AI 01/14/2023 2:36 AM CDT [facility] Blood Venipuncture / Unknown 01/13/2023 2:59 PM CDT 01/13/2023 3:09 PM CDT Narrative [facility] - 01/14/2023 2:36 AM CDT <= 0.8 Negative. ??No detectable Mumps IgG antibody. 0.9 - 1.0 Equivocal >=1.1 Positive Antibody testing was performed by multiplex flow immunoassay on the BioPlex platform. us Josie Fritcher PAC IMMUNOLOGY ORDERABLES Fi nal Result Performing Organization Address [facility] Co de Phone Number [facility] [address] [place] [address], [place] * RUBEOLA (MEASLES) IGG (01/13/2023 2:59 PM CDT) MEASLES AB IGG 4.3 >=1.1 AI 01/14/2023 2:36 AM CDT [facility] Blood Venipuncture / Unknown 01/13/2023 2:59 PM CDT 01/13/2023 3:09 PM CDT Narrative [facility] - 01/14/2023 2:36 AM CDT <= 0.8 Negative. ??No detectable Measles IgG antibody. 0.9 - 1.0 Equivocal >=1.1 Positive Antibody testing was performed by multiplex flow immunoassay on the BioPlex platform. Josie Fritcher PAC IMMUNOLOGY ORDERABLES Fi nal Result Performing Organization Address [facility] Co de Phone Number [facility] [address] [place] [address], [place] * (ABNORMAL) HERPES ZOSTER (VARICELLA) IGG (01/13/2023 2:59 PM CDT) VARICELLA ZOSTER IGG 1.0(L) >=1.1 AI 01/14/2023 2:36 AM CDT [facility] Blood Venipuncture / Unknown 01/13/2023 2:59 PM CDT 01/13/2023 3:09 PM CDT Narrative [facility] - 01/14/2023 2:36 AM CDT <= 0.8 Negative. ??No detectable VZV IgG antibody. 0.9 - 1.0 Equivocal >=1.1 Positive Antibody testing was performed by multiplex flow immunoassay on the BioPlex platform. Bianka Diasrich PAC IMMUNOLOGY ORDERABLES Fi nal Result Performing Organization Address City/[facility] Co de Phone Number [facility] [address] [place] [address], [place] documented in this encounter Visit Diagnoses Diagnosis Well adult exam- Primary Routine general medical examination at a health care facility Encounter for immunization Need for other specified prophylactic vaccination against single bacterial disease Anxiety and depression Dysthymic disorder Screening-pulmonary TB Screening examination for pulmonary tuberculosis Immunity status testing Antibody response examination documented in this encounter Additional Health Concerns Assessment Noted Time PHQ-9 Depression Total Score: 6 08/18/20 22 8:00 AM CRA OFFICER documented as of this encounter Care Teams Manufacturing Machine Operator Relationship Specialty Start Date End Date Bianka Oneill PAC [address] [place] [address] PCP - General Physician Visual Stylist 08/18/22 documented as of this encounter
--- OUTSIDE RECORDS SUMMARY | 2024-09-22 20:29 | XMS_ITS | Encounter Summary ---
Author Organization [facility] Address [address] [place] [address] Phone Care Team Providers Care Marketing Support Manager Name Role Phone Bianka Oneill Primary Care Provider + Reason for Referral * Radiology Services (Routine) - Closed Specialty Diagnoses / Procedures Referred By Conttyson t Referred To Contact Radiology Diagnoses Generalized abdominal pain Procedures US ABDOMEN COMPLETE Bianka Oneill PAC [address] [place] [address] Phone: tel: fax: Referral ID Status Reason Start Date Expiration Date Visits Re quested Visits Authorized [id number] Closed 04/17/2023 1 1 Reason for Visit * Reason Comments MRSA Encounter Details Date Type Department Care Team (Latest Contact Info) Description 04/17/2023 8:45 AM CDT Office Visit [facility] - [facility] [address] [place] [id number] Bianka Oneill PAC [address] [place] [address] Left hip pain (Primary Dx); History of MRSA infection; Generalized abdominal pain; Chronic gastroesophageal reflux disease Discharge Disposition: Discharged to home or Selfcare [...] Sign Reading Time Taken Comments Blood Pressure 108/80 04/17/2023 8:36 AM CDT Pulse 94 04/17/2023 8:36 AM CDT Temperature 36.8 ??C (98.2 ??F) 04/17/2023 8:36 AM CD T Respiratory Rate 14 04/17/2023 8:36 AM CDT Oxygen Saturation 98% 04/17/2023 8:36 AM CDT Inhaled Oxygen Concentration - - Weight 107.2 kg (236 lb 4.8 oz) 04/17/2023 8:36 AM CDT Height 160 cm (5' 3 ) 04/17/2023 8:36 AM CDT Body Mass Index 41.86 04/17/2023 8:36 AM CDT documented in this encounter Patient Instructions * Patient Instructions* Bianka Oneill PAC - 04/17/2023 8:45 AM CDT Labs today as ordered documented in this encounter Progress Notes * Savage Hardin RMA - 04/17/2023 8:45 AM CDT Annalise Vogt, 18 y.o., female is here for MRSA Medication Refills: Patient reports/denies need for medication refills. Orders Pended: no Requested Prescriptions No prescriptions requested or ordered in this encounter Home Medications Medication Sig Start Date End Date Taking? Authorizing Provider Docusate Calcium (STOOL SOFTENER PO) Take by mouth. Yes Debbie Khan MD doxycycline hyclate (VIBRAMYCIN) 100 MG Capsule THERAPY COMPLETED ON 04/1503/23/23 Debbie Khan MD Escitalopram Oxalate (LEXAPRO PO) Take 15 mg by mouth daily. Yes Debbie Khan MD ferrous sulfate 325 (65 Fe) MG Tablet Take 1 Tablet by mouth 2 times daily. 02/27/23 Yes Bianka Oneill PAC ondansetron (ZOFRAN-ODT) 4 MG TABLET DISPERSIBLE DISSOLVE 1 TABLET ON THE TONGUE EVERY 6 HOURS NEEDED FOR NAUSEA OR VOMITING 02/18/23 Yes Debbie Khan MD polyethylene glycol (GLYCOLAX) 17 GM/SCOOP Powder Take 17 g by mouth. Yes Debbie Khan MD scopolamine (TRANSDERM-SCOP) 1 MG/3DAYS PATCH 72 HR 1 Patch by Transdermal route. Patient not taking: Reported on 04/17/2023 03/23/23 Debbie Khan MD Semaglutide-Weight Management (Wegovy) 0.25 MG/0.5ML Solution Auto-injector 0.25 mg by Subcutaneousroute every 7 days. 02/24/23 Yes Bianka Oneill PAC There are no [...] - Pfizer series) 03/29/2022 Orders Pended: no * Arunoctavionatty Bianka [place], PAC - 04/17/2023 8:45 AM CDT Subjective: Patient in the office today for check on MRSA, she had abscesses in axilla several weeks ago, was treated with doxycycline Discussed abscesses have resolved left with skin discoloration, no new pustules in 2 weeks No pain or drainage in area Discussed yesterday had episode of severe abdominal pain, had to stop driving, lasted about 30 min,had nausea, 1 episode of vomiting and later 1 episode of diarrhea, denies urinary symptoms Reviewed she has reflux almost daily Periodically episodes of abdominal pain Today in office no abdominal pain Is scheduled for orthopedic surgery on 04/20/23 for left hip pain Review of Systems Constitutional: Negative for chills and fever. Respiratory: Negative for cough, shortness of breath and wheezing. Cardiovascular: Negative for chest pain and palpitations. Gastrointestinal: Negative for abdominal pain. Genitourinary: Negative for difficulty urinating, dysuria and frequency. Musculoskeletal: Positive for arthralgias. Skin: Negative for wound. Neurological: Negative for seizures and weakness. Objective: Physical Exam Vitals reviewed. Constitutional: Appearance: [...] soft. Tenderness: There is no abdominal tenderness. Skin: General: Skin is warm. Neurological: General: No focal deficit present. Mental Status: She is alert. Psychiatric: Mood and Affect: Mood normal. In bilateral axilla few scattered 1 mm areas of hyperpigmentation, no pustules, no erythema, no drainage Assessment and Plan See Diagnoses, Orders, Follow-up, and Instructions .Diagnoses and all orders for this visit: Left hip pain History of MRSA infection Generalized abdominal pain - CMP (COMPREHENSIVE METABOLIC PANEL); Future - COMPLETE BLOOD COUNT (CBC) WITH DIFF; Future - AMYLASE; Future - LIPASE; Future - URINALYSIS REFLEX IF INDICATED BY ABNORMAL RESULTS; Future - US ABDOMEN COMPLETE; Future Chronic gastroesophageal reflux disease Other orders - doxycycline hyclate (VIBRAMYCIN) 100 MG Capsule; THERAPY COMPLETED ON 04/15 - famotidine (PEPCID) 20 MG Tablet; Take 1 Tablet by mouth 2 times daily. Patient does not have appearance of current mrsa infection on skin Discussed generalized abdominal pain, labs rule out any elevated white count, pancreatic enzymes, liver dysfunction Use pepcid daily for chronic reflux Ultrasound in future of abdomen rule out gallstones Patient cleared for surgery documented in this encounter Plan of Treatment Upcoming Encounters Date Type Department Care Team (Late st Contact Info) Description 10/07/2024 3:00 PM CONFERENCE ORGANIZER [facility] Visit [facility] [address] [place] [address] Bianka Oneill, PAC [address] [place] [address] documented as of this encounter Results * US ABDOMEN COMPLETE [...] Electronically signed by ??Fernando Garcia M.D. CH: D: ??06/03/2023 11:19 AM T: ??06/03/2023 11:19 AM Report ID: [id number] Reading Location: ??[id number] Procedure Note Fernando Garcia Jr., MD - [...] Fernando Garcia M.D. CH: FELISHA Report ID: [id number] Reading Location: [place] [address] IMPRESSION: Negative abdominal ultrasound. us Bianka Oneill PAC IMG US ORDERABLES Final Result * (ABNORMAL) URINALYSIS REFLEX IF INDICATED BY ABNORMAL RESULTS (04/17/2023 9:49 AM CDT) SPECIFIC GRAVITY 1.015 1.003 - 1.030 04/17/2023 1:11 PM CDT [facility] URINE PH 7.0 5.0 - 9.0 04/17/2023 1:11 PM CDT [facility] WBC ESTERASE 25 /ul(A) Negative 04/17/2023 1:11 PM CDT [facility] NITRITE Negative Negative 04/17/2023 1:11 PM CDT [facility] PROTEIN, RANDOM URINE 15 mg/dL(A) Negative 04/17/2023 1:11 PM CDT [facility] URINE GLUCOSE, QUAL Negative Negative 04/17/2023 1:11 PM CDT [facility] URINE KETONES Negative Negative 04/17/2023 1:11 PM CDT [facility] UROBILINOGEN Normal Normal mg/dL 04/17/2023 1:11 PM CDT [facility] URINE BLOOD Negative Negative carter/ul 04/17/2023 1:11 PM CDT [facility] URINALYSIS COLOR Yellow 04/17/20 1:11 PM CDT [facility] URINALYSIS CLARITY Slightly Cloudy 04/17/2023 1:11 PM CDT [facility] WBC (Urine) 6-10(A) Negative, 0-5 /hpf 04/17/2023 1:11 PM CDT [facility] URINE RBC'S 0-2 Negative, 0-2 /hpf 04/17/2023 1:11 PM CDT [facility] EPITHELIAL CELLS Large amount squamous /lpf 04/17/2023 1:11 PM CDT [facility] BACTERIA, URINE Few(A) Negative /hpf 04/17/2023 1:11 PM CDT [facility] CRYSTALS Calcium oxalate 04/17/2023 1:11 PM CDT [facility] Urine URINE SPECIMEN COLLECTION, CLEAN CATCH / Unknown Non-Phlebotomy Collection / Unknown 04/17/2023 9:49 AM CDT 04/17/2023 9:49 AM CDT us Bianka Oneill PAC URINE ORDERABLES Final R esult [facility] [address] [place] [address] * LIPASE (04/17/2023 9:49 AM CDT) LIPASE 28.7 13 - 60 U/L 04/17/2023 1:19 PM CDT [facility] Blood Venipuncture / Unknown 04/17/2023 9:49 AM CDT 04/17/2023 9:49 AM CDT us Bianka Oneill PAC CHEMISTRY ORDERABLES Fin al Result [facility] [address] [place] [address] * AMYLASE (04/17/2023 9:49 AM CDT) AMYLASE 34 28 - 100 U/L 04/17/2023 1:19 PM CDT [facility] Blood Venipuncture / Unknown 04/17/2023 9:49 AM CDT 04/17/2023 9:49 AM CDT us Bianka Oneill PAC CHEMISTRY ORDERABLES Fin al Result [facility] [address] [place] [address] documented in this encounter Visit Diagnoses Diagnosis Left hip pain- Primary Pain in joint, pelvic region and thigh History of MRSA infection Personal history of Methicillin resistant Staphylococcus aureus Generalized abdominal pain Abdominal pain, generalized Chronic gastroesophageal reflux disease Generalized abdominal pain Abdominal pain, generalized documented in this encounter Additional Health Concerns Infection Onset Date Last Indicated Resolved Time MRSA 03/23/2023 03/23/2023 Assessment Noted Time PHQ-9 Depression Total Score: 6 08/18/20 22 8:00 AM CONFERENCE ORGANIZER documented as of this encounter Care Teams Marketing Support Manager Relationship Specialty Start Date End Date Bianka Oneill, YARED [address] [place] [address] PCP - General Physician Compensation And Benefits Manager 08/18/22 documented as of this encounter
--- OUTSIDE RECORDS SUMMARY | 2024-09-22 20:29 | XMS_ITS | Encounter Summary ---
Author Organization [employer] Care Team Providers Care Sales And Marketing Assistant Name Role Phone Bianka Oneill YARED Primary Care Provider + Encounter Details Date Type Department Care Team (Latest Contact Info) Description 05/17/2023 Travel Social History Tobacco Use Types Packs/Day [...] Score 5 05/17/2023 3:00 PM CDT Che Dickerson, BRICK MASON * Question Answer Date of Assessment Author Patient Health Questionnaire -9 Score 15 05/17/2023 3:00 PM CDChe Rahman LCSW * Over the last 2 weeks, how often have you been bothered by any of the following problems? Question Answer Date of Assessment Author Feeling nervous, anxious, or on edge 3 05/17/2023 3:00 PM Che Tsang LCSW Not being able to stop or co ntrol worrying 3 05/17/2023 3:00 PM AFUSTINOT Che Dickerson LCSW Worrying too much about diff erent things 1 05/17/2023 3:00 PM Che Tsang LCSW Trouble relaxing 0 05/17/2023 3:00 PM [...] down Nearly every day 05/17/2023 3:00 PM Ceh Tsang LCSW Trouble concentrating on things, such as reading the newspaper or watching television Nearly every day 05/17/2023 3:00 PM CDT Che Dickerson LCSW Moving or speaking so slowly that other people could have noticed? Or the opposite - being so fidgety or restless that you have been moving around a lot more than usual. Not at all 05/17/2023 3:00 PM Che Tsang LCSW Thoughts that you would be better off or hurting yourself in some way Not at all 05/17/2023 3:00 PM FAUSTINOT Che Dickerson LCSW * Questions about Anxiety Question Answer Date of Assessment Author In the last 4 weeks, have yo u had an anxiety attack - suddenly feeling fear or panic? No 05/17/2023 3:00 PM Che Tsang LCSW * If you checked off any problems on this questionnaire, Question Answer Date of Assessment Author How difficult have these problems made it for you to do your work, take care of things at home, or get along with other people? Somewhat difficult 05/17/2023 3:00 PM Che Tsang LCSW documented as of this encounter Plan of Treatment Upcoming Encounters Date Type Department Care Team (Late st Contact Info) Description 10/07/2024 3:00 PM MANAGED CARE COORDINATOR Office Visit [facility] Medical [facility] [address] [place] [address] Bianka Oneill, [facility] [address] [place] [address] documented as of this encounter Goals Goal Patient Goal Type Associated Problems Recent Progress Patient-Stated? Author just want to feel normal Behavioral Health On track(2023 4:08 PM MANAGED CARE COORDINATOR) Yes Che Dickerson LCSW Note: Goal/Objective: Decrease anxious and depressive symptoms. Anticipated Time Frame for Goal Completion: 6 months Goal Reviewed with: patient Readiness to change: Ready to change Department associated with goal: [facility] Steps to [...] Total Score: 6 08/18/20 22 8:00 AM MANAGED CARE COORDINATOR documented as of this encounter Care Teams Sales And Marketing Assistant Relationship Specialty Start Date End Date Bianka Oneill PAC [address] [place] [address] PCP - General Physician Health Unit Clerk 08/18/22 documented as of this encounter
--- OUTSIDE RECORDS SUMMARY | 2024-09-22 20:29 | XMS_ITS | Encounter Summary ---
Author Organization [facility] Address [address] [place] [place] [address] Phone Care Team Providers Care Route Deliverer Name Role Phone Bianka Oneill Primary Care Provider + Reason for Visit * Episode Based Medications (Routine) - Closed Specialty Diagnoses / Procedures Referred By Contac t Referred To Contact Diagnoses Iron deficiency anemia, unspecified iron deficiency anemia type Pepper Reyes, PAC [address] [place] [address] Phone: tel: fax: [facility] [address] [place] [address] Phone: tel: fax: Referral ID Status Reason Start Date Expiration Date Visits Re quested Visits Authorized [id number] Closed 05/18/2023 1 1 Encounter Details Date Type Department Care Team (Late st Contact Info) Description 05/25/2023 1:30 PM CDT Clinical Support [facility] [address] [place] [phone] Pepper Reyes PAC [address] [place] [address] Iron deficiency anemia, unspecified iron deficiency anemia type (Primary Dx); Menorrhagia with regular cycle Discharge Disposition: Discharged to home or Selfcare [...] as of this encounter Miscellaneous Notes * Interdisciplinary - Lito Vargas RN - 05/25/2023 1:30 PM CDT Pt ambulated to treatment room. Presenting for iron infusion. Pt states she found out she's in her 1st trimester about 5 wks along. Notified Pepper PENG and Joel TIWARI. Changing treatment plan to Venofer 200mg IVPB over 30mins. Pt is to wait until after she's in the second trimester. Pt will call to schedule future venofer appointments. Cancelled appointments at this time and enterednew treatment plan. documented in this encounter Plan of Treatment Upcoming Encounters Date Type Department Care Team (Late st Contact Info) Description 10/07/2024 3:00 PM ICE HANDLER [facility] Visit [facility] [address] [place] [address] Bianka Oneill PAC [address] [place] [address] documented as of this encounter Goals Goal Patient Goal Type Associated Problems Recent Progress Patient-Stated? Author just want to feel normal Behavioral Health On track(2023 4:08 PM ICE HANDLER) Yes Che Dickerson, LOG CHECK SCALER Note: Goal/Objective: Decrease anxious and depressive symptoms. Anticipated Time Frame for Goal Completion: 6 months Goal Reviewed with: patient Readiness to change: Ready to change Department associated with goal: [facility] Steps to [...] anemia, unspecified iron deficiency anemia type- Primary Menorrhagia with regular cycle Excessive or frequent menstruation documented in this encounter Additional Health Concerns Infection Onset Date Last Indicated Resolved Time MRSA 03/23/2023 03/23/2023 Assessment Noted Time PHQ-9 Depression Total Score: 6 08/18/20 22 8:00 AM ICE HANDLER documented as of this encounter Care Teams Route Deliverer Relationship Specialty Start Date End Date Bianka Oneill PAC [address] [place] [address] PCP - General Physician Vat Operator 08/18/22 documented as of this encounter
--- OUTSIDE RECORDS SUMMARY | 2024-09-22 20:29 | XMS_ITS | Encounter Summary ---
Author Organization [facility] Address [address] [place] [address] Phone Care Team Providers Care Acting Section Chief Name Role Phone Bianka Oneill Primary Care Provider + Encounter Details Date Type Department Care Team (Latest Contact Info) Description 01/16/2023 8:30 AM CDT Clinical Support [facility] - [facility] - [place] [address] [place] [address] Clinic, Manny Nurse [place] Encounter for immunization (Primary Dx) Discharge Disposition: Discharged to home [...] suspected to have Coronavirus/COVID-19? No / Unsure 01/16/2023 8:12 AM CDT documented as of this encounter Progress Notes * Abbey Bhandari RMA - 01/16/2023 8:30 AM CDT PPD Reading Note PPD read and results entered in [employer]. Result: 0 mm induration. Interpretation: negative If test not read within 48-72 hours of initial placement, patient advised to schedule another appointment to repeat the TB skin test injection. Allergic reaction: no documented in this encounter Plan of Treatment Upcoming Encounters Date Type Department Care Team (Late st Contact Info) Description 10/07/2024 3:00 PM FISCAL CLERK Office Visit [facility] [address] [place] [address] Bianka Oneill PAC [address] [place] [address] documented as of this encounter Visit Diagnoses Diagnosis Encounter for immunization- Primary Need for other specified prophylactic vaccination against single bacterial disease documented in this encounter Additional Health Concerns Assessment Noted Time PHQ-9 Depression Total Score: 6 08/18/20 8:00 AM FISCAL CLERK documented as of this encounter Care Teams Acting Section Chief Relationship Specialty Start Date End Date Bianka Oneill PAC [address] [place] [address] PCP - General Physician Physician Executive 08/18/22 documented as of this encounter
--- OUTSIDE RECORDS SUMMARY | 2024-09-22 20:29 | XMS_ITS | Encounter Summary ---
Author Organization [facility] Address [address] [place] [address] Phone Care Team Providers Care Deicer Tester Name Role Phone Bianka Oneill Primary Care Provider + Reason for Visit * Reason Onset Date Comments Appointment 03/15/2023 Encounter Details Date Type Department Care Team (Late st Contact Info) Description 03/15/2023 Telephone [facility] [address] [place] [address] Bianka Oneill, YARED [address] [place] [address] Appointment Social History Tobacco Use Types Packs/Day [...] Miscellaneous Notes * Telephone Encounter - Abbey Reyes - 03/15/2023 8:24 AM CDT Symptoms: Skin Lump, Rash or Redness on One Body Area Only Outcome: Schedule an urgent appointment within same day Reason: Growing rapidly The caller accepted this outcome Caller denied: * Dark red or purple spots documented in this encounter Plan of Treatment Upcoming Encounters Date Type Department Care Team (Late st Contact Info) Description 10/07/2024 3:00 PM AUTO TOP MECHANIC Office Visit [facility] - Family [facility] [address] [place] [address] Bianka Oneill PAC [address] [place] [address] documented as of this encounter Visit Diagnoses Not on filedocumented in this encounter Additional Health Concerns Assessment Noted Time PHQ-9 Depression Total Score: 6 08/18/20 22 8:00 AM AUTO TOP MECHANIC documented as of this encounter Care Teams Deicer Tester Relationship Specialty Start Date End Date Bianka Oneill PAC [address] [place] [address] PCP - General Physician Structural Steel Engineer 08/18/22 documented as of this encounter
--- OUTSIDE RECORDS SUMMARY | 2024-09-22 20:29 | XMS_ITS | Encounter Summary ---
Author Organization [facility] [employer] Care Team Providers Care Poultry Raiser Name Role Phone Bianka Oneill Primary Care Provider + Encounter Details Date Type Department Care Team (Latest Contact Info) Description 02/03/2023 Travel Social History Tobacco Use Types Packs/Day [...] suspected to have Coronavirus/COVID-19? No / Unsure 02/03/2023 1:25 PM CDT documented as of this encounter Plan of Treatment Upcoming Encounters Date Type Department Care Team (Late st Contact Info) Description 10/07/2024 3:00 PM CLINICAL SAFETY MANAGER Office Visit [facility] - [facility] [address] [place] [address] Bianka Oneill PAC [address] [place] [address] documented as of this encounter Visit Diagnoses Not on filedocumented in this encounter Additional Health Concerns Assessment Noted Time PHQ-9 Depression Total Score: 6 08/18/20 22 8:00 AM CLINICAL SAFETY MANAGER documented as of this encounter Care Teams Poultry Raiser Relationship Specialty Start Date End Date Bianka Oneill PAC [address] [place] [address] PCP - General Physician Mental Health Advanced Practice Nurse 08/18/22 documented as of this encounter
--- OUTSIDE RECORDS SUMMARY | 2024-09-22 20:29 | XMS_ITS | Encounter Summary ---
Author Organization [facility] [employer] Care Team Providers Care Bisque Brusher Name Role Phone Bianka Oneill Primary Care Provider + Encounter Details Date Type Department Care Team (Latest Contact Info) Description 05/05/2023 Travel Social History Tobacco Use Types Packs/Day [...] suspected to have Coronavirus/COVID-19? No / Unsure 05/05/2023 11:29 AM CDT documented as of this encounter Plan of Treatment Upcoming Encounters Date Type Department Care Team (Late st Contact Info) Description 10/07/2024 3:00 PM FISHING VESSEL CAPTAIN Office Visit [facility] [address] [place] [address] Bianka Oneill PAC [address] [place] [address] documented as of this encounter Visit Diagnoses Not on filedocumented in this encounter Additional Health Concerns Infection Onset Date Last Indicated Resolved Time MRSA 03/23/2023 03/23/2023 Assessment Noted Time PHQ-9 Depression Total Score: 6 08/18/20 22 8:00 AM FISHING VESSEL CAPTAIN documented as of this encounter Care Teams Bisque Brusher Relationship Specialty Start Date End Date Bianka Oneill PAC [address] [place] [address] PCP - General Physician Word Processor Technician 08/18/22 documented as of this encounter
--- OUTSIDE RECORDS SUMMARY | 2024-09-22 20:29 | XMS_ITS | Encounter Summary ---
Author Organization [facility] Address [address] [place] [address] Phone Care Team Providers Care Senior Software Project Manager Name Role Phone Bianka Oneill Primary Care Provider + Reason for Visit * Episode Based Medications (Routine) - Closed Specialty Diagnoses / Procedures Referred By Contac t Referred To Contact Diagnoses Iron deficiency anemia, unspecified iron deficiency anemia type Pepper Reyes, PAC [address] [place] [address] Phone: tel: fax: [facility] [address] [place] [address] Phone: tel: fax: Referral ID Status Reason Start Date Expiration Date Visits Re quested Visits Authorized [id number] Closed 01/26/2023 1 1 Encounter Details Date Type Department Care Team (Late st Contact Info) Description 02/08/2023 9:30 AM CDT Clinical Support [facility] [address] [place] [id number] Pepper Reyes PAC [address] [place] [address] Iron deficiency anemia, unspecified iron deficiency anemia [...] Sign Reading Time Taken Comments Blood Pressure 104/70 02/08/2023 9:30 AM CDT Pulse 87 02/08/2023 9:30 AM CDT Temperature 36.3 ??C (97.4 ??F) 02/08/2023 9:30 AM CD T Respiratory Rate 16 02/08/2023 9:30 AM CDT Oxygen Saturation 98% 02/08/2023 9:30 AM CDT Inhaled Oxygen Concentration - - Weight - - Height - - Body Mass Index - - documented in this encounter Miscellaneous Notes * Interdisciplinary - Lito Vargas RN - 02/08/2023 9:30 AM CDT Pt ambulated to treatment room. Vitals obtained. IV access x1 attempt. Flushed without difficulty, blood return present. Medicated per MD orders. Tolerated well. IV removed. Gauze and coband applied.Pt left in stable condition. documented in this encounter Plan of Treatment Upcoming Encounters Date Type Department Care Team (Late st Contact Info) Description 10/07/2024 3:00 PM FISHER Office Visit [facility] Medical Group - [facility] [place] [address] [place] [address] Bianka Oneill, YARED [address] [place] [address] documented as of this encounter Visit Diagnoses Diagnosis Iron deficiency anemia, unspecified iron deficiency anemia type- Primary documented in this encounter Administered Medications Inactive Administered Medications - up to 3 most recent administrations Medication Order MAR Action Action Date Dose Rate Site iron sucrose (VENOFER) 300 mg in sodium chloride 0.9 % 250 mL IVPB 300 mg, Intravenous, ONCE, 1 dose, On Mon02/08/23 at 1000, Administer over 90 Minutes, Monitor patient for 30 minutes after infusion completedIndications:Iron deficiency anemia, unspecified iron deficiency anemia type New Bag 02/08/2023 10:09 AM CDT 300 mg 166.7 mL/hr documented in this encounter Additional Health Concerns Assessment Noted Time PHQ-9 Depression Total Score: 6 08/18/20 22 8:00 AM FISHER documented as of this encounter Care Teams Senior Software Project Manager Relationship Specialty Start Date End Date Bianka Oneill PAC [address] [place] [address] PCP - General Physician Chief Power Dispatcher 08/18/22 documented as of this encounter
--- OUTSIDE RECORDS SUMMARY | 2024-09-22 20:29 | XMS_ITS | Encounter Summary ---
Author Organization [employer] Care Team Providers Care Oil Burner Mechanic Name Role Phone Bianka Oneill YARED Primary Care Provider + Encounter Details Date Type Department Care Team (Latest Contact Info) Description 05/29/2023 Travel Social History Tobacco Use Types Packs/Day [...] AM CDT documented as of this encounter Functional [...] Lira CMA documented as of this encounter Plan of Treatment Upcoming Encounters Date Type Department Care Team (Late st Contact Info) Description 10/07/2024 3:00 PM CLINICAL RESEARCH SCIENTIST Office Visit [facility] Medical [facility] [place] [address] [place] [address] Bianka Oneill PAC [address] [place] [address] documented as of this encounter Goals Goal Patient Goal Type Associated Problems Recent Progress Patient-Stated? Author just want to feel normal Behavioral Health On track(2023 4:08 PM CLINICAL RESEARCH SCIENTIST) Yes Che Dickerson LCSW Note: Goal/Objective: Decrease anxious and depressive symptoms. Anticipated Time Frame for Goal Completion: 6 months Goal Reviewed with: patient Readiness to change: Ready to change Department associated with goal: [facility] Steps to achieve goal: [...] Time PHQ-9 Depression Total Score: 0 05/29/20 10:33 AM CDT documented as of this encounter Care Teams Oil Burner Mechanic Relationship Specialty Start Date End Date Bianka Oneill PAC [address] [place] [address] PCP - General Physician Geriatric Physician 08/18/22 documented as of this encounter
--- OUTSIDE RECORDS SUMMARY | 2024-09-22 20:29 | XMS_ITS | Encounter Summary ---
Author Organization [facility] Address [address] [place] [address] Phone Care Team Providers Care Tank Processor Name Role Phone Bianka Oneill Primary Care Provider + Reason for Visit * Reason Onset Date Comments Medication Refill 02/26/2023 Encounter Details Date Type Department Care Team (Late st Contact Info) Description 02/26/2023 MyChart RX Renewal [facility] [place] [address] [place] [address] Bianka Oneill PAC [address] [place] [address] Medication Renewal Reviewed Social History Tobacco Use [...] Telephone Encounter - Liset Fisher RN - 02/27/2023 11:01 AM CDT Medication(s) refilled and signed per [facility] Chronic Medication Refill Standing Order for Pediatricand Adult Patients. Requested Prescriptions Pending Prescriptions Disp Refills ??? ferrous sulfate 325 (65 Fe) MG Tablet 60 Tablet 3 Sig: Take 1 Tablet by mouth 2 times daily. Minerals Iron Supplementation Protocol Passed - 02/26/2023 8:10 AM Passed - Visit with relevant provider in past 12 months or upcoming 90 days Recent Visits Date Type Provider Dept 02/24/23 Office Visit Bianka Oneill, PAC [facility] 01/13/23 Office Visit Bianka Oneill, PAC [facility] 11/29/22 Office Visit Bianka Oneill, PAC [facility] 10/21/22 Office Visit Bianka Oneill, PAC [facility] 09/30/22 Office Visit Bianka Oneill, PAC [facility] 08/18/22 Office Visit Bianka Oneill, PAC [facility] Showing recent visits within past 365 days and meeting all other requirements Future Appointments No visits were found meeting these conditions. Showing future appointments within next 90 days and meeting all other requirements Passed - Serum Fe on record in past 12 months IRON Date Value Ref Range Status 01/13/2023 36.21 (L) 37 - 145 mcg/dL Final Passed - Ferritin on record in past 12 months FERRITIN Date Value Ref Range Status 11/29/2022 5 (L) 13 - 150 ng/mL Final Passed - Iron Saturation on record in past 12 months % SATURATION * Date Value Ref Range Status 01/13/2023 9 (L) 20 - 55 % Final Passed - Hemoglobin on record in past 12 months HEMOGLOBIN (HGB) Date Value Ref Range Status 02/24/2023 11.9 (L) 12.0 - 15.8 g/dL Final documented in this encounter Plan of Treatment Upcoming Encounters Date Type Department Care Team (Late st Contact Info) Description 10/07/2024 3:00 PM PEST LOCATOR Office Visit [facility] [address] [place] [address] Bianka Oneill PAC [address] [place] [address] documented as of this encounter Visit Diagnoses Diagnosis Anemia, unspecified type documented in this encounter Additional Health Concerns Assessment Noted Time PHQ-9 Depression Total Score: 6 08/18/20 22 8:00 AM PEST LOCATOR documented as of this encounter Care Teams Tank Processor Relationship Specialty Start Date End Date Bianka Oneill PAC [address] [place] [address] PCP - General Physician Plant Pathology Teacher 08/18/22 documented as of this encounter
--- OUTSIDE RECORDS SUMMARY | 2024-09-22 20:29 | XMS_ITS | Encounter Summary ---
Author Organization [facility] Address [address] [place] [place] [address] Phone Care Team Providers Care Dynamometer Mechanic Name Role Phone Bianka Oneill Primary Care Provider + Reason for Visit * Reason Comments Follow-up Encounter Details Date Type Department Care Team (Late st Contact Info) Description 05/18/2023 10:15 AM CDT Office Visit [facility] [address] [place] [address] Pepper Reyes Letitia, PAC [address] [place] [address] Iron deficiency anemia, unspecified iron deficiency anemia [...] Sign Reading Time Taken Comments Blood Pressure 110/80 05/18/2023 10:13 AM CDT Pulse 94 05/18/2023 10:13 AM CDT Temperature 36.3 ??C (97.4 ??F) 05/18/2023 10:13 AM C DT Respiratory Rate 18 05/18/2023 10:13 AM CDT Oxygen Saturation 99% 05/18/2023 10:13 AM CDT Inhaled Oxygen Concentration - - Weight 108.9 kg (240 lb) 05/18/2023 10:13 AM CDT Height 160 cm (5' 3 ) 05/18/2023 10:13 AM CDT Body Mass Index 42.51 05/18/2023 10:13 AM CDT documented in this encounter Patient Instructions * Patient Instructions* Pepper Reyes, PAC - 05/18/2023 10:15 AM CDT Will proceed with iron infusions-Venofer 300 mg times four infusions. Obtain new lab work approximately 6 weeks after last infusion. Follow-up 1-2 weeks after labs. Continue iron rich diet- handout provided Avoid foods/ beverages that interfere with iron absorption Certain heartburn medication such as omeprazole (Prilosec)/ pantoprazole (Protonix) or similar, interfere with iron absorption- do not take with iron supplement Famotidine (Pepcid) does not interfere with iron absorption Continue oral iron supplement - be sure to take iron supplement on an empty stomach with vitamin-C Avoid ibuprofen/Aleve/naproxen-may use Tylenol or Tylenol arthritis as needed for pain. Proceed with labs as recommended prior to follow-up Follow-up in 3 months to review labs If you are required to have labs/ testing done PRIOR to follow up, please have testing completed nolater than 2-5 days prior to appointment. If you do not have testing completed prior to your scheduled follow-up appointment you will be asked to reschedule until testing completed All patients are expected to check in with registration 15 minutes prior to all appointments. Patients who arrive 15 minutes or more after their scheduled appointment time may be required to reschedule. Please schedule follow-up in near future to discuss any concerns that were not addressed fully at today's office visit. To continue to provide excellent patient care, you may receive a survey regarding your visit today.To help us serve you better, please complete and return. These surveys are completely anonymous. If you have any concerns/ questions regarding today's visit, please call. If you experience any new or worsening symptoms, please call or go to the emergency department. documented in this encounter Progress Notes * Pepper Reyes PAC - 05/18/2023 10:15 AM CDT Outpatient Hem/Onc Progress Note Annalise Vogt is a 18 y.o. female who presents for 3 month follow-up for iron- deficiency anemia menorrhagia. She was given Venofer 300 mg with last 23. Returns with no complaints today. Last menstrual cycle was 04/24/2023. Reports lasted for about 6 days and was heavy. Continues to have heavy menstrual cycles. ALLERGIES: Allergies Allergen Reactions ??? Tramadol Other (see Comments) Seizure MEDICATIONS: Current Outpatient Medications Medication Sig Dispense Refill [...] 4 TO 6 HOURS NEEDED FOR PAIN (Patient not taking: Reported on 05/18/2023) ??? ondansetron (ZOFRAN-ODT) 4 MG TABLET DISPERSIBLE Take 1 Tablet by mouth every 8 hours as neededfor Nausea - 1st line. 30 Tablet 0 ??? scopolamine (TRANSDERM-SCOP) 1 MG/3DAYS PATCH 72 HR 1 Patch by Transdermal route. (Patient not taking: Reported on 04/17/2023) ??? Semaglutide-Weight Management (Wegovy) 0.25 MG/0.5ML Solution Auto-injector 0.25 mg by Subcutaneous route every 7 days. (Patient not taking: Reported on 05/18/2023) 2 mL 0 No current facility-administered medications for this visit. PMS/H: Past Medical History Positives Diagnosis Date ??? Anxiety ??? Asthma ??? History of anemia as a child Past Surgical History: Procedure Laterality Date ??? NO PREVIOUS SURGERY SOCIAL: Social History Socioeconomic History ??? Marital status: Single Spouse name: Not on file ??? Number of children: Not on file ??? Years of education: Not on file ??? Highest education level: 12th grade Occupational History ??? Not on file Tobacco Use ??? Smoking status: Never ??? Smokeless tobacco: Never Vaping Use ??? Vaping Use: Former Substance and Sexual Activity ??? Alcohol use: Never ??? Drug use: Never ??? Sexual activity: Not Currently Partners: Male control/protection: Implant Other Topics Concern ??? Not on file Social History Narrative ??? Not on file FAMILY HX: Family History Problem Relation Age of Onset ??? Hypertension Mother ??? Hypertension Father ??? Diabetes Father VITAL SIGNS: Vitals: 05/18/23 1013 BP: 110/80 BP Location: Left Arm BP Position: Sitting BP Cuff Size: Large Pulse: 94 Resp: 18 Temp: 97.4 ??F (36.3 ??C) SpO2: 99% Weight: (!) 240 lb (108.9 kg) Height: 5' 3 (1.6 m) GENERAL EXAM: GENERAL: Well developed, well nourished, morbidly obese, in no acute distress. AAO x3. Cooperative. HEENT: Normocephalic. PERRLA. Nonicteric. NECK: Supple/ non tender/ full ROM LYMPH NODES: No adenopathy. CARDIOVASCULAR: RRR/ S1S2/ No m/g/c/r. PULMONARY: Respirations easy and regular. Breath sounds clear bilaterally. No rhonchi/ rales/ wheezes. MUSCULOSKELETAL: Normal gait and movement of extremities. SKIN: General-warm, pink and dry. No rashes/ lesions. PSYCHIATRIC: Euthymic. Affect congruent with mood. Normal thought process. PAIN ASSESSMENT: 0 DATA: 04/17/2023 Orders for CBC, B12, folic acid, reticulocyte count, immunofixation with SPEP, kappa lambda light chains were in place with these labs however there is no indication they were drawn or results for same. CMP: 04/17/2023 Na 141 K 4.0 Cl 105 CO2 23 Glu 87 BUN 9 Cr 0.53 AST 15 ALT 16 Alk Phos 83 T. bili 0.2 eGFR >60 LDH 155 Iron panel: Iron 39.57 Sat 13% UIBC 268 TIBC 308 Ferritin 38 Assessment: Diagnoses and all orders for this visit: Iron deficiency anemia, unspecified iron deficiency anemia type - FERRITIN; Future - COMPLETE BLOOD COUNT (CBC) WITH DIFF; Future - VITAMIN B12; Future - RETICULOCYTE COUNT (RETIC); Future - FREE KAPPA & LAMBDA LIGHT CHAINS SERUM; Future - IMMUNOFIXATION W/ ELECTROPHORESIS SERUM; Future - IRON,TRANSFERN,CALC.TIBC,%SAT; Future Menorrhagia with regular cycle Plan: Reviewed and discussed above results. Will proceed with Venofer 300 mg times for infusions. New lab work CBC, ferritin, B12, reticulocyte count, free kappa lambda, immuno with SPEP, iron panel approximately 6 weeks after lab infusion. Follow-up 1-2 weeks after labs. Continue iron and vitamin-C rich diet. Continue current oral iron supplement. Diagnoses and all orders for this visit: Iron deficiency anemia, unspecified iron deficiency anemia type - FERRITIN; Future - COMPLETE BLOOD COUNT (CBC) WITH DIFF; Future - VITAMIN B12; Future - RETICULOCYTE COUNT (RETIC); Future - FREE KAPPA & LAMBDA LIGHT CHAINS SERUM; Future - IMMUNOFIXATION W/ ELECTROPHORESIS SERUM; Future - IRON,TRANSFERN,CALC.TIBC,%SAT; Future Menorrhagia with regular cycle Return in about 3 months (around 08/17/2023) for Anemia, Review labs/ tests after completed. The patient was given an opportunity to ask questions, and all questions answered to patient's satisfaction. Patient verbalizes understanding of the plan as outlined above. Patient Instructions Will proceed with iron infusions-Venofer 300 mg times four infusions. Obtain new lab work approximately 6 weeks after last infusion. Follow-up 1-2 weeks after labs. Continue iron rich diet- handout provided Avoid foods/ beverages that interfere with iron absorption Certain heartburn medication such as omeprazole (Prilosec)/ pantoprazole (Protonix) or similar, interfere with iron absorption- do not take with iron supplement Famotidine (Pepcid) does not interfere with iron absorption Continue oral iron supplement - be sure to take iron supplement on an empty stomach with vitamin-C Avoid ibuprofen/Aleve/naproxen-may use Tylenol or Tylenol arthritis as needed for pain. Proceed with labs as recommended prior to follow-up Follow-up in 3 months to review labs If you are required to have labs/ testing done PRIOR to follow up, please have testing completed nolater than 2-5 days prior to appointment. If you do not have testing completed prior to your scheduled follow-up appointment you will be asked to reschedule until testing completed All patients are expected to check in with registration 15 minutes prior to all appointments. Patients who arrive 15 minutes or more after their scheduled appointment time may be required to reschedule. Please schedule follow-up in near future to discuss any concerns that were not addressed fully at today's office visit. To continue to provide excellent patient care, you may receive a survey regarding your visit today.To help us serve you better, please complete and return. These surveys are completely anonymous. If you have any concerns/ questions regarding today's visit, please call. If you experience any new or worsening symptoms, please call or go to the emergency department. documented in this encounter Miscellaneous Notes * Interdisciplinary - Nereida Le MA - 05/18/2023 10:15 AM CDT Follow up. No pain, today. Meds reviewed with pt and updated--tjo documented in this encounter Plan of Treatment Upcoming Encounters Date Type Department Care Team (Late st Contact Info) Description 10/07/2024 3:00 PM ACCOUNT DIRECTOR Office Visit [facility] Medical [facility] [address] [place] [address] Bianka Oneill, PAC [address] [place] [address] Scheduled Orders Name Type Priority Associated Diagnoses Orde r Schedule FERRITIN Lab Routine Iron deficiency anemia, unspecified iron deficiency anemia type Expected: 07/17/2023, Expires: 09/15/2023 COMPLETE BLOOD COUNT (CBC) WITH DIFF Lab Routine Iron deficiency anemia, unspecified iron deficiency anemia type Expected: 07/17/2023, Expires: 09/15/2023 VITAMIN B12 Lab Routine Iron deficiency anemia, unspecified iron deficiency anemia type Expected: 07/17/2023, Expires: 09/15/2023 RETICULOCYTE COUNT (RETIC) Lab Routine Iron deficiency anemia, unspecified iron deficiency anemia type Expected: 07/17/2023, Expires: 09/15/2023 FREE KAPPA & LAMBDA LIGHT CHAINS SERUM Lab Routine Iron deficiency anemia, unspecified iron deficiency anemia type Expected: 07/17/2023, Expires: 09/15/2023 IMMUNOFIXATION W/ ELECTROPHORESIS SERUM Lab Routine Iron deficiency anemia, unspecified iron deficiency anemia type Expected: 07/17/2023, Expires: 09/15/2023 IRON,TRANSFERN,CALC.TIBC,%SA T Lab Routine Iron deficiency anemia, unspecified iron deficiency anemia type Expected: 07/17/2023, Expires: 09/15/2023 documented as of this encounter Goals Goal Patient Goal Type Associated Problems Recent Progress Patient-Stated? Author just want to feel normal Behavioral Health On track(2023 4:08 PM ACCOUNT DIRECTOR) Yes Che Dickerson, MADALYN Note: Goal/Objective: Decrease anxious and depressive symptoms. Anticipated Time Frame for Goal Completion: 6 months Goal Reviewed with: patient Readiness to change: Ready to change Department associated with goal: [facility] Steps to achieve [...] Total Score: 6 08/18/20 22 8:00 AM ACCOUNT DIRECTOR documented as of this encounter Care Teams Dynamometer Mechanic Relationship Specialty Start Date End Date Bianka Oneill PAC [address] [place] [address] PCP - General Physician Ear Machine Operator 08/18/22 documented as of this encounter
--- OUTSIDE RECORDS SUMMARY | 2024-09-22 20:29 | XMS_ITS | Encounter Summary ---
Author Organization [facility] Address [address] [place] [address] Phone Care Team Providers Care Mail Carrier And Clerk Name Role Phone Bianka Oneill Primary Care Provider + Reason for Visit * Reason Comments Urinary Pain Was seen in ER on 02/18 for UTI. Finished antibiotics but symptoms resumed immediately after. Encounter Details Date Type Department Care Team (Late st Contact Info) Description 03/01/2023 1:45 PM CDT Office Visit [facility] Medical [facility] - Family Medicine [facility] [address] [place] [address] Mikie Solorio MD [address] [address] Dysuria (Primary Dx) Discharge Disposition: Discharged to home [...] Sign Reading Time Taken Comments Blood Pressure 112/70 03/01/2023 1:45 PM CDT Pulse 102 03/01/2023 1:45 PM CDT Temperature 36.4 ??C (97.6 ??F) 03/01/2023 1:45 PM CD T Respiratory Rate 16 03/01/2023 1:45 PM CDT Oxygen Saturation 100% 03/01/2023 1:45 PM CDT Inhaled Oxygen Concentration - - Weight 102.5 kg (226 lb) 03/01/2023 1:45 PM CDT Height 160.7 cm (5' 3.25 ) 03/01/2023 1:45 PM CD T Body Mass Index 39.72 03/01/2023 1:45 PM CDT Body Mass Index Percentile 98.80% 03/01/2023 1:4 5 PM CDT Growth Chart: CDC (Girls, 2- 20 Years) documented in this encounter Progress Notes * Azalea Vizcarra - 03/01/2023 1:45 PM CDT Annalise Vogt, 17 y.o., female is here for Urinary Pain (Was seen in ER on 02/18 for UTI. Finished antibiotics but symptoms resumed immediately after.) Medication Refills: Patient reports/denies need for medication refills. Orders Pended: no Requested Prescriptions No prescriptions requested or ordered in this encounter Home Medications Medication Sig Start Date End Date Taking? Authorizing Provider Docusate Calcium (STOOL SOFTENER PO) Take by mouth. Yes Provider, MD Debbie escitalopram (LEXAPRO) 20 MG Tablet Take 1 Tablet by mouth daily. 01/13/23 Yes Bianka Oneill PAC ferrous sulfate 325 (65 Fe) MG Tablet Take 1 Tablet by mouth 2 times daily. 02/27/23 Yes Bianka Oneill PAC hydrOXYzine (ATARAX) 25 MG Tablet Take 1 Tablet by mouth every 6 hours as needed for Anxiety. 02/24/23 Yes Bianka Oneill PAC ondansetron (ZOFRAN-ODT) 4 MG TABLET DISPERSIBLE DISSOLVE 1 TABLET ON THE TONGUE EVERY 6 HOURS NEEDED FOR NAUSEA OR VOMITING 02/18/23 Yes ProviderDebbie MD polyethylene glycol (GLYCOLAX) 17 GM/SCOOP Powder Take 17 g by mouth. Yes ProviderDebbie MD Semaglutide-Weight Management (Wegovy) 0.25 MG/0.5ML Solution Auto-injector 0.25 mg by Subcutaneousroute every 7 days. 02/24/23 Bianka Oneill PAC traMADol (ULTRAM) 50 MG Tablet Take 50 [...] been addressed with the patient today: no BPAs addressed * Mikie Solorio MD - 03/01/2023 1:45 PM CDT SUBJECTIVE: Annalise Vogt is here to follow-up/ evaluation on her 1. Dysuria Annalise Vogt says she has been feeling fine. Past Medical History Positives Diagnosis Date ??? Anxiety ??? Asthma ??? History of anemia as a child Past Surgical History: Procedure Laterality Date ??? NO PREVIOUS SURGERY Social History Tobacco Use ??? Smoking status: Never ??? Smokeless tobacco: Never Substance Use Topics ??? Alcohol use: Never Exercise: no ROS: She . She d. No lightheadedness, palpitations, or syncope. No edema. She is compliant in taking her medication and denies medication side effects. Has dysuria 02/18/2023 went to ed Thought had uti. Testing was positive Put on keflex symptomos all came back last night Today: Has urgency. Frequency yes, Blood in urine no No f/c No vag discharge Nausea since first uti 02/18/2023. Comes and goes Saw bianka dotson 02/24/2023 due to nausea Put on zofran Outpatient Medications Marked as Taking for the 03/01/23 encounter (Office Visit) with Mikie Solorio MD Medication Sig Dispense Refill ??? Docusate Calcium (STOOL SOFTENER PO) Take by mouth. ??? escitalopram (LEXAPRO) 20 MG Tablet Take 1 Tablet by mouth daily. 90 Tablet 1 ??? ferrous sulfate 325 (65 Fe) MG Tablet Take 1 Tablet by mouth 2 times daily. 60 Tablet 3 ??? hydrOXYzine (ATARAX) 25 MG Tablet Take 1 Tablet by mouth every 6 hours as needed for Anxiety. 30 Tablet 0 ??? ondansetron (ZOFRAN-ODT) 4 MG TABLET DISPERSIBLE DISSOLVE 1 TABLET ON THE TONGUE EVERY 6 HOURS NEEDED FOR NAUSEA OR VOMITING ??? polyethylene glycol (GLYCOLAX) 17 GM/SCOOP Powder Take 17 g by mouth. ??? traMADol (ULTRAM) 50 MG Tablet Take 50 mg by mouth every 6 hours as needed. PRN No Known Allergies LABS Lab Results Component Value Date WBC 6.08 02/24/2023 HEMOGLOBIN 11.9 (L) 02/24/2023 HEMATOCRIT 39.6 02/24/2023 PLATELETCNT 303 02/24/2023 CHOLESTEROL 171 08/18/2022 TRIGLYCRIDES 88 08/18/2022 HDLCHOLESTE 34.0 (L) 08/18/2022 LDL 119 08/18/2022 Lab Results Component Value Date SODIUM 140 02/24/2023 POTASSIUM 3.7 02/24/2023 CHLORIDE 105 02/24/2023 CO2VEN 24 02/24/2023 ANIONGAP 14.7 02/24/2023 GLUCOSE 130 (H) 02/24/2023 BUN 9 02/24/2023 CREATININE 0.59 02/24/2023 BCRATIO8 15 02/24/2023 TOTALPROTEIN 7.2 02/24/2023 ALBUMIN 4.6 02/24/2023 CALCIUM 9.4 02/24/2023 TBIL <0.3 02/24/2023 SGOTAST 16 02/24/2023 SGPTALT 16 02/24/2023 ALKALINEPHO 86 02/24/2023 TSH 2.990 08/18/2022 OBJECTIVE Well-nourished, well-developed, pleasant, cooperative 17 y.o. female in no acute distress. Vitals: 03/01/23 1345 BP: 112/70 Pulse: 102 Resp: 16 Temp: 97.6 ??F (36.4 ??C) TempSrc: Temporal SpO2: 100% Weight: (!) 226 lb (102.5 kg) Height: 5' 3.25 (1.607 m) Body mass index is 39.72 kg/m??. BP Readings from Last 3 Encounters: 03/01/23 112/70 02/24/23 110/78 02/08/23 104/70 Wt Readings from Last 3 Encounters: 03/01/23 (!) 226 lb (102.5 kg) (99 %, Z= 2.26)* 02/24/23 (!) 228 lb (103.4 kg) (99 %, Z= 2.28)* 01/26/23 (!) 231 lb 8 oz (105 kg) (99 %, Z= 2.32)* * Growth percentiles are based on CDC (Girls, 2-20 Years) data. SKIN: Warm and dry. BACK: No spine or costovertebral angle tenderness. LUNGS: Clear to auscultationand percussion. HEART:normal rate, regular rhythm, normal S1, S2, no murmurs, rubs, clicks or gallops. ABDOMEN: Bowel sounds are active. No masses. No organomegaly, no tenderness. No bruits. EXTREMITIES: No edema. No cvat Obese Glasses mild lower abd tenderness No rebound No guarding ASSESSMENT AND PLAN Diagnoses and all orders for this visit: Dysuria - POCT UA AUTOMATED W/O MICRO Other orders - ondansetron (ZOFRAN-ODT) 4 MG TABLET DISPERSIBLE; DISSOLVE 1 TABLET ON THE TONGUE EVERY 6 HOURS NEEDED FOR NAUSEA OR VOMITING There are no discontinued medications. No follow-ups on file. Continue current medication After visit summary discussed with patient. Documentation for this visit on 03/01/2023 was completed using a template. I have seen and examined the patient. Everything documented was personally performed at this visit with the necessary additions, deletions and changes made as appropriate. Dysuria/uti: ua shows le pos. Protein pos, nitrite pos, blood pos. S/p keflex. Denies preg. No allergies to meds. Will do cipro 500 bid for 7 days documented in this encounter Plan of Treatment Upcoming Encounters Date Type Department Care Team (Late st Contact Info) Description 10/07/2024 3:00 PM DIRECTOR OF PLACEMENT Office Visit [facility] Medical Group - Family [facility] [address] [place] [address] Bianka Oneill, PAC [address] [place] [address] documented as of this encounter Procedures Procedure Name Priority Date/Time Associated Diagnosis Comments CULTURE, URINE Routine 03/01/2023 2:34 PM CDT Dysuria POCT UA AUTOMATED W/O MICRO Routine 03/01/2023 1:59 PM CDT Dysuria documented in this encounter Results * CULTURE, URINE (03/01/2023 2:34 PM CDT) CULTURE RESULTS ESCHERICHIA COLI 03/04/2023 11:07 AM CDT [facility] Comment:PRESUMPTIVE IDENTIFI CATION Culture URINE SPECIMEN COLLECTION, CLEAN CATCH / Unknown Non-Phlebotomy Collection / Unknown 03/01/2023 2:34 PM CDT 03/01/2023 2:34 PM CDT Narrative Organism Antibiotic Method Susceptibility Escherichia coli Ampicillin [facility] VITEK II <=2 mcg/ml: Susceptible Escherichia coli Ampicillin/sulbactam [facility] V[facility] II <=2 mcg/ml: Susceptible Escherichia coli Cefazolin [facility] II <=4 mcg/ml: Susceptible Escherichia coli Cefepime [facility] II <=1 mcg/ml: Susceptible Escherichia coli Ceftriaxone [facility] II <=1 mcg/ml: Susceptible Escherichia coli Gentamicin [facility] II <=1 mcg/ml: Susceptible Escherichia coli Levofloxacin [facility] II <=0.12 mcg/ml: Susceptible Escherichia coli Meropenem [facility] II <=0.25 mcg/ml: Susceptible Escherichia coli Nitrofurantoin [facility] II <=16 mcg/ml: Susceptible Escherichia coli Piperacillin/Tazobactam [facility] II <=4 mcg/ml: Susceptible Escherichia coli Tobramycin [facility] II <=1 mcg/ml: Susceptible Escherichia coli Trimeth/Sulfamethoxazole [facility] I I <=20 mcg/ml: Susceptible us Mikie Solorio MD MICROBIOLOGY - GENERAL ORDERA BLES Final Result [facility] [address] [place] [address], * (ABNORMAL) POCT UA AUTOMATED W/O MICRO (03/01/2023 1:59 PM CDT) POC UA SPECIFIC GRAVITY 1.015 URINE PH 7.0 5.0 - 9.0 POC URINE LEUKOCYTES 500 /uL(A) Negative Saulo/uL POC URINE NITRITE Positive(A) Negative POC URINE PROTEIN 500 mg/dL(A) Negative mg/dL POC URINE GLUCOSE Norm Negative, Norm mg/dL POC URINE KETONE Negative Negative mg/dL POC URINE UROBILINOGEN 8 E.U./dL (mg/dL)(A) Norm, 0.2 E.U./dL (mg/dL), 1 E.U./dL (mg/dL) POC URINE BILIRUBIN 3 mg/dL(A) Negative mg/dL POC URINE BLOOD INSTRUMENT 50 Terry/uL(A) Negative Terry/uL POC URINE COLOR [place] POC URINE CLARITY Clear Urine 03/01/2023 1:59 PM CDT Mikie Solorio MD POINT OF CARE TESTING (MANUAL ) Final Result documented in this encounter Visit Diagnoses Diagnosis Dysuria- Primary documented in this encounter Additional Health Concerns Assessment Noted Time PHQ-9 Depression Total Score: 6 08/18/20 22 8:00 AM DIRECTOR OF PLACEMENT documented as of this encounter Care Teams Mail Carrier And Clerk Relationship Specialty Start Date End Date Bianka Oneill, YARED [address] [place] [address] PCP - General Physician Director Custom 08/18/22 documented as of this encounter
--- OUTSIDE RECORDS SUMMARY | 2024-09-22 20:29 | XMS_ITS | Encounter Summary ---
Author Organization [facility] Care Team Providers Care Recruitment Coordinator Name Role Phone Bianka Oneill Primary Care Provider + Encounter Details Date Type Department Care Team (Latest Contact Info) Description 01/16/2023 Travel Social History Tobacco Use Types Packs/Day [...] st Contact Info) Description 10/07/2024 3:00 PM BUILDINGS AND GROUNDS SUPERINTENDENT Office Visit [facility] Medical Group - Family Medicine [facility] [address] [place] [address] Bianka Oneill PAC [address] [place] [address] documented as of this encounter Visit Diagnoses Not on filedocumented in this encounter Additional Health Concerns Assessment Noted Time PHQ-9 Depression Total Score: 6 08/18/20 22 8:00 AM BUILDINGS AND GROUNDS SUPERINTENDENT documented as of this encounter Care Teams Recruitment Coordinator Relationship Specialty Start Date End Date Bianka Oneill PAC [address] [place] [address] PCP - General Physician Automotive Mechanical Engineer 08/18/22 documented as of this encounter
--- OUTSIDE RECORDS SUMMARY | 2024-09-22 20:29 | XMS_ITS | Encounter Summary ---
Author Organization [facility] Address [address] [place] [address] Phone Care Team Providers Care Steel Handler Name Role Phone Bianka Oneill Primary Care Provider + Reason for Visit * Reason Onset Date Comments Appointment 12/19/2022 Encounter Details Date Type Department Care Team (Late st Contact Info) Description 12/19/2022 Telephone [facility] [address] [place] [address] Bianka nOeill, PAC [address] [place] [address] Appointment Social History Tobacco Use Types Packs/Day [...] encounter Miscellaneous Notes * Telephone Encounter - Jennifer Yeager RN - 01/03/2023 3:09 PM CDT S: Patient calling to reschedule appointment per provider request B: Please see encounter below. Patient states received message today that appointment was canceled and was needing rescheduled A: n/a R: Appointment rescheduled as well as nurse visit scheduled for TB test reading All Patient Appointments Provider Department Dept Phone 01/13/2023 1:45 PM Bianka Oneill [facility] [phone] 01/16/2023 8:30 AM Clinic, [facility] Nurse [facility] [phone] Assistive services verified * Telephone Encounter - Amy Reilly RN - 12/19/2022 11:26 AM CDT Patient calling to schedule a physical for school and a 2 step TB test. Appointment scheduled, see details below. All Patient Appointments Provider Department Dept Phone 01/03/2023 1:15 PM Bianka Oneill [facility] [phone] Please call to schedule TB resting once ordered. documented in this encounter Plan of Treatment Upcoming Encounters Date Type Department Care Team (Late st Contact Info) Description 10/07/2024 3:00 PM CASTER OPERATOR Office Visit [facility] [address] [place] [address] Bianka Oneill PAC [address] [place] [address] documented as of this encounter Visit Diagnoses Not on filedocumented in this encounter Additional Health Concerns Assessment Noted Time PHQ-9 Depression Total Score: 6 08/18/20 22 8:00 AM CASTER OPERATOR documented as of this encounter Care Teams Steel Handler Relationship Specialty Start Date End Date Bianka Oneill PAC [address] [place] [address] PCP - General Physician Drier And Evaporator Operator 08/18/22 documented as of this encounter
--- OUTSIDE RECORDS SUMMARY | 2024-09-22 20:29 | XMS_ITS | Encounter Summary ---
Author Organization [facility] Address [address] [place] [address] Phone Care Team Providers Care Tools Programmer Name Role Phone Bianka Oneill Primary Care Provider + Reason for Visit * Episode Based Medications (Routine) - Closed Specialty Diagnoses / Procedures Referred By Contac t Referred To Contact Diagnoses Iron deficiency anemia, unspecified iron deficiency anemia type Pepper Reyes, PAC [address] [place] [address] Phone: tel: fax: [facility] [address] [place] [address] Phone: tel: fax: Referral ID Status Reason Start Date Expiration Date Visits Re quested Visits Authorized [id number] Closed 01/26/2023 1 1 Encounter Details Date Type Department Care Team (Late st Contact Info) Description 02/06/2023 11:30 AM CDT Clinical Support [facility] [address] [place] [id number] Pepper Reyes PAC [address] [place] [address] Iron deficiency anemia, unspecified iron deficiency anemia [...] Sign Reading Time Taken Comments Blood Pressure 123/82 02/06/2023 11:40 AM CDT Pulse 85 02/06/2023 11:40 AM CDT Temperature 36.7 ??C (98 ??F) 02/06/2023 11:40 AM CDT Respiratory Rate 16 02/06/2023 11:40 AM CDT Oxygen Saturation - - Inhaled Oxygen Concentration - - Weight - - Height - - Body Mass Index - - documented in this encounter Miscellaneous Notes * Interdisciplinary - Therese Bailey RN - 02/06/2023 11:30 AM CDT Pt ambulated into treatment room in stable condition. Vitals obtained. IV started x1 attempt. Flushed with ease and blood return noted. Medication side effects and intended effects reviewed with pt. Pt medicated per MD orders. Pt tolerated well. IV flushed and removed. Gauze and coban to site. Pt discharged in stable condition. documented in this encounter Plan of Treatment Upcoming Encounters Date Type Department Care Team (Late st Contact Info) Description 10/07/2024 3:00 PM BASEBALL INSPECTOR AND REPAIRER [facility] [address] [place] [address] Bianka Oneill, YARED [address] [place] [address] documented as of this encounter Visit Diagnoses Diagnosis Iron deficiency anemia, unspecified iron deficiency anemia type- Primary documented in this encounter Administered Medications Inactive Administered Medications - up to 3 most recent administrations Medication Order MAR Action Action Date Dose Rate Site iron sucrose (VENOFER) 300 mg in sodium chloride 0.9 % 250 mL IVPB 300 mg, Intravenous, ONCE, 1 dose, On Mon02/06/23 at 1200, Administer over 90 Minutes, Monitor patient for 30 minutes after infusion completedIndications:Iron deficiency anemia, unspecified iron deficiency anemia type New Bag 02/06/2023 11:54 AM CDT 300 mg 166.7 mL/hr documented in this encounter Additional Health Concerns Assessment Noted Time PHQ-9 Depression Total Score: 6 08/18/20 22 8:00 AM BASEBALL INSPECTOR AND REPAIRER documented as of this encounter Care Teams Tools Programmer Relationship Specialty Start Date End Date Bianka Oneill PAC [address] [place] [address] PCP - General Physician It Program Manager 08/18/22 documented as of this encounter
--- OUTSIDE RECORDS SUMMARY | 2024-09-22 20:29 | XMS_ITS | Encounter Summary ---
Author Organization [facility] Address [address] [place] [address] Phone Care Team Providers Care Chief Executive Name Role Phone Bianka Oneill Primary Care Provider + Reason for Referral * Consult, Test & Initiate Treatment (Routine) - Closed Specialty Diagnoses / Procedures Referred By Suzy giraldo Referred To Contact Behavioral Health Diagnoses Anxiety Bianka Oneill PAC [address] [place] [address] Phone: tel: fax: Che Dickerson, [facility] [address] [place] [address] Phone: tel: fax: Referral ID Status Reason Start Date Expiration Date Visits Re quested Visits Authorized [id number] Closed 03/23/2023 1 1 Scheduling Instructions Annalise is being referred for anxiety. Please contact patient for scheduling questions or concerns. Reason for Visit * Reason Comments Post-Hospital Follow-up Encounter Details Date Type Department Care Team (Late st Contact Info) Description 03/23/2023 3:45 PM CDT Office Visit [facility] - [facility] [address] [place] [id number] JuarezBianka luz, PAC [address] [place] [address] UTI symptoms (Primary Dx); Amenorrhea; Abscess; Anxiety; Anxiety and depression; Anemia, unspecified type Discharge Disposition: Discharged to home [...] Reading Time Taken Comments Blood Pressure 116/74 03/23/2023 3:33 PM CDT Pulse 85 03/23/2023 3:33 PM CDT Temperature 37 ??C (98.6 ??F) 03/23/2023 3:33 PM CDT Respiratory Rate - - Oxygen Saturation 98% 03/23/2023 3:33 PM CDT Inhaled Oxygen Concentration - - Weight 104.8 kg (231 lb) 03/23/2023 3:33 PM CDT Height 152.4 cm (5') 03/23/2023 3:33 PM CDT Body Mass Index 45.11 03/23/2023 3:33 PM CDT documented in this encounter Progress Notes * Sandra Lira, SKETCH MAKER - 03/23/2023 3:45 PM CDT Annalise Vogt, 18 y.o., female is here for Post-Hospital Follow-up Medication Refills: Patient reports/denies need for medication refills. Orders Pended: no Requested Prescriptions No prescriptions requested or ordered in this encounter Home Medications Medication Sig Start Date End Date Taking? Authorizing Provider cephALEXin (KEFLEX) 500 MG Capsule Take 1 Capsule by mouth 2 times daily for 10 days. 03/15/23 03/25/23 Yes Archana Mott APRN, ALEXIS Docusate Calcium (STOOL SOFTENER PO) Take by mouth. Yes Debbie Khan MD escitalopram (LEXAPRO) 20 MG Tablet Take 1 Tablet by mouth daily. Patient taking differently: Take 10 mg by mouth daily. 01/13/23 Yes Bianka Oneill PAC ferrous sulfate 325 (65 Fe) MG Tablet Take 1 Tablet by mouth 2 times daily. 02/27/23 Yes Bianka Oneill PAC hydrOXYzine (ATARAX) 25 MG Tablet Take 1 Tablet by mouth every 6 hours as needed for Anxiety. Patient not taking: Reported on 03/23/2023 02/24/23 Bianka Oneill PAC ondansetron (ZOFRAN-ODT) 4 MG TABLET DISPERSIBLE DISSOLVE 1 TABLET ON THE TONGUE EVERY 6 HOURS NEEDED FOR NAUSEA OR VOMITING 02/18/23 Yes Debbie Khan MD polyethylene glycol (GLYCOLAX) 17 GM/SCOOP Powder Take 17 g by mouth. Yes Debbie Khan MD scopolamine (TRANSDERM-SCOP) 1 MG/3DAYS PATCH 72 HR 1 Patch by Transdermal route. 03/23/23 Yes Debbie Khan MD Semaglutide-Weight Management (Wegovy) 0.25 MG/0.5ML Solution Auto-injector 0.25 mg by Subcutaneousroute every 7 days. 02/24/23 Yes Bianka Oneill PAC traMADol (ULTRAM) 50 MG Tablet Take 50 mg by mouth every 6 hours as needed. PRN Patient not taking: Reported on 03/15/2023 Debbie Khan MD There are no discontinued [...] have been addressed with the patient today: No BPA's addressed * Bianka Oneill PAC - 03/23/2023 3:45 PM CDT Subjective: Patient in the office today for hospital follow up, was admitted on 03/06/23 for involuntary movements, frequent twitching, altered metal status Reviewed hospital encounter, discussed possible serotonin syndrome Had recently increased dose of lexapro and started tramadol and atarax In office feeling better Discussed she has been under lot of stress. Sometimes panic attacks Also Has abscess in under arm area Had urinary symptoms but this is resolving Notes sometimes nausea and vomiting but seems better Review of Systems Constitutional: Negative for chills and fever. Respiratory: Negative for cough and shortness of breath. Cardiovascular: Negative for chest pain. Gastrointestinal: Negative for abdominal pain. Musculoskeletal: Positive for arthralgias. Skin: Positive for rash. Psychiatric/Behavioral: Positive for sleep disturbance. Negative for suicidal ideas. The patient isnervous/anxious. Objective: Physical Exam Vitals reviewed. Constitutional: Appearance: [...] wheezing. Skin: General: Skin is warm. Comments: Bilateral axilla with small abscess, wound culture collected Neurological: Mental Status: She is alert. Psychiatric: Mood and Affect: Mood normal. Assessment and Plan See Diagnoses, Orders, Follow-up, and Instructions ..Diagnoses and all orders for this visit: UTI symptoms - POCT UA AUTOMATED W/O MICRO - URINALYSIS REFLEX IF INDICATED BY ABNORMAL RESULTS; Future - URINALYSIS REFLEX IF INDICATED BY ABNORMAL RESULTS - CULTURE, URINE Amenorrhea - POCT URINE HCG () Abscess - CULTURE, AEROBIC; Future - CULTURE, AEROBIC Anxiety - BEHAVIORAL HEALTH REFERRAL; Future Anxiety and depression Other orders - scopolamine (TRANSDERM-SCOP) 1 MG/3DAYS PATCH 72 HR; 1 Patch by Transdermal route. - doxycycline hyclate (VIBRAMYCIN) 100 MG Capsule; Take 1 Capsule by mouth 2 times daily for 10 days. - Escitalopram Oxalate (LEXAPRO PO); Take 15 mg by mouth daily. - FREE KAPPA & LAMBDA LIGHT CHAINS SERUM - IMMUNOFIXATION W/ ELECTROPHORESIS SERUM - LACTATE DEHYDROGENASE (LD) - RETICULOCYTE COUNT (RETIC) - VITAMIN B12 - COMPLETE BLOOD COUNT (CBC) WITH DIFF - CMP (COMPREHENSIVE METABOLIC PANEL) - TRANSFERRIN - IRON W/IRON BINDING CAPACITY - FERRITIN - FOLIC ACID (FOLATE) Discussed serotonin syndrome, will hold tramadol and will decrease lexapro to 15 mg daily Suggest consult with counselor Start doxycycline for skin infection, rule out MRSA Notify if any worsening rash or symptoms Or problems with antibiotic documented in this encounter Plan of Treatment Upcoming Encounters Date Type Department Care Team (Late st Contact Info) Description 10/07/2024 3:00 PM CRUSHER DRY GROUND MICA [facility] Visit [facility] [address] [place] [address] Bianka Oneill PAC [address] [place] [address] Scheduled Orders Name Type Priority Associated Diagnoses Orde r Schedule CBC WITH AUTO DIFFERENTIAL Lab Only Routine Anemia, unspecified type Ordered: 04/17/2023 Scheduled Referrals Name Type Priority Associated Diagnoses Order Schedule BEHAVIORAL HEALTH REFERRAL Outpatient Referral Routine Anxiety Expected: 03/23/2023, Expires: 03/23/2024 documented as of this encounter Procedures Procedure Name Priority Date/Time Associated Diagnosis Comments LACTATE DEHYDROGENASE (LD) Routine 04/17/2023 9:49 AM CDT Anemia, unspecified type IRON W/IRON BINDING CAPACITY Routine 04/17/2023 9:49 AM CDT Anemia, unspecified type FERRITIN Routine 04/17/2023 9:49 AM CDT Anemia, unspecified type CMP (COMPREHENSIVE METABOLIC PANEL) Routine 04/17/2023 9:49 AM CDT Anemia, unspecified type CULTURE, AEROBIC Routine 03/23/2023 5:09 PM CDT Abscess URINALYSIS REFLEX IF INDICATED BY ABNORMAL RESULTS Routine 03/23/2023 5:04 PM CDT UTI symptoms CULTURE, URINE Routine 03/23/2023 5:04 PM CDT UTI symptoms POCT UA AUTOMATED W/O MICRO Routine 03/23/2023 3:59 PM CDT UTI symptoms POCT URINE HCG () Routine 03/23/2023 3:58 PM CDT Amenorrhea documented in this encounter Results * FERRITIN (04/17/2023 9:49 AM CDT) FERRITIN 38 13 - 150 ng/mL 04/17/2023 1:19 PM CDT [facility] Blood Venipuncture / Unknown 04/17/2023 9:49 AM CDT 04/17/2023 9:49 AM CDT us Pepper Reyes PAC CHEMISTRY ORDERABLES Mayela l Result [facility] [address] [place] [address] * (ABNORMAL) IRON W/IRON BINDING CAPACITY (04/17/2023 9:49 AM CDT) Pathologist [facility] IRON 39.57 37 - 145 mcg/dL 04/17/2023 1:19 PM CDT [facility] % SATURATION * 13(L) 20 - 55 % 04/17/2023 1:19 PM CDT [facility] UIBC 268 112 - 346 mcg/dL 04/17/2023 1:19 PM CDT [facility] TIBC CALC 308 149 - 491 mcg/dL 04/17/2023 1:19 PM CDT [facility] Blood Venipuncture / Unknown 04/17/2023 9:49 AM CDT 04/17/2023 9:49 AM CDT Pepper Reyes PAC CHEMISTRY ORDERABLES Mayela l Result [facility] [address] [place] [address] * (ABNORMAL) CMP (COMPREHENSIVE METABOLIC PANEL) (04/17/2023 9:49 AM CDT) Pathologist [facility] SODIUM 141 136 - 144 mmol/L 04/17/2023 1:19 PM CDT [facility] POTASSIUM 4.0 3.5 - 5.1 mmol/L 04/17/2023 1:19 PM CDT [facility] CHLORIDE 105 100 - 110 mmol/L 04/17/2023 1:19 PM CDT [facility] CO2, VENOUS 23 22 - 32 mmol/L 04/17/2023 1:19 PM CDT [facility] ANION GAP 17.0 8.0 - 20.0 mmol/L 04/17/2023 1:19 PM CDT [facility] GLUCOSE 87 70 - 99 mg/dL 04/17/2023 1:19 PM CDT [facility] BUN 9 6 - 20 mg/dL 04/17/2023 1:19 PM CDT [facility] CREATININE, BLOOD 0.53(L) 0.60 - 1.10 mg/dL 04/17/2023 1:19 PM [facility] BUN/CREATININE RATIO 17 12 - 20 ratio 04/17/2023 1:19 PM [facility] TOTAL PROTEIN 7.1 6.0 - 8.3 g/dL 04/17/2023 1:19 PM T [facility] ALBUMIN 4.4 3.5 - 5.2 g/dL 04/17/2023 1:19 PM [facility] A/G RATIO 1.6 1.0 - 2.0 04/17/2023 1:19 PM [facility] CALCIUM 9.8 8.7 - 10.5 mg/dL 04/17/2023 1:19 PM [facility] T BILI 0.2 0.2 - 1.2 mg/dL 04/17/2023 1:19 PM [facility] SGOT (AST) 15 <=32 U/L 04/17/2023 1:19 PM [facility] SGPT (ALT) 16 <=41 U/L 04/17/2023 1:19 PM [facility] ALKALINE PHOSPHATASE 83 35 - 105 U/L 04/17/2023 1:19 PM [facility] IS THE PATIENT REQUIRED TO BE FASTING? No 04/17/2023 1:19 PM [facility] GFR, ESTIMATED >60 >=60 04/17/2023 1:19 PM [facility] Comment: Creatinine Clearance is the preferred criteria for selecting drug dose adjustments in renally impaired patients. ??The GFR is provided as additional pertinent clinical information. GFR is reported in mL/min/1.73 sq m. Calculation based on the Chronic Kidney Disease Epidemiology Collaboration (CKD- EPI) equation refit without adjustment for race. UNABLE TO CALCULATE GFR, EST. 023 1:19 PM [facility] GFR, EST. NONAFRICAN 04/17/2023 1:19 PM CDT [facility] Blood Venipuncture / Unknown 04/17/2023 9:49 AM CDT 04/17/2023 9:49 AM CDT [facility] PAC CHEMISTRY ORDERABLES Mayela l Result Performing Organization Address City/[facility]/ZIP Co de Phone Number [facility] [address] [place] [address] * LACTATE DEHYDROGENASE (LD) (04/17/2023 9:49 AM CDT) LDH 155 135 - 214 U/L 04/17/2023 1:19 PM CDT [facility] Blood Venipuncture / Unknown 04/17/2023 9:49 AM CDT 04/17/2023 9:49 AM CDT [facility] PAC CHEMISTRY ORDERABLES Mayela l Result Performing Organization Address City/[facility]/ZIP Co de Phone Number [facility] [address] [place] [address] * CULTURE, AEROBIC (03/23/2023 5:09 PM CDT) CULTURE RESULTS METHICILLIN RESISTANT STAPHYLOCOCCUS AUREUS 03/26/2023 9:24 AM CDT [facility] Culture EXUDATE / Unknown Non-Phlebotomy Collection / Unknown 03/23/2023 5:09 PM CDT 03/23/2023 5:09 PM CDT Narrative Organism Antibiotic Method Susceptibility Methicillin Resistant Staph aureus Clindamycin SF VITEK II <=0.25 mcg/ml: Susceptible Methicillin Resistant Staph aureus Erythromycin [facility] VITEK II <=0.25 mcg/ml: Susceptible Methicillin Resistant Staph aureus Gentamicin SF VITEK II <=0.5 mcg/ml: Susceptible Methicillin Resistant Staph aureus Linezolid SF VITEK II 1 mcg/ml: Susceptible Methicillin Resistant Staph aureus Oxacillin [facility] VITEK II >=4 mcg/ml: Resistant Methicillin Resistant Staph aureus Tetracycline [facility] VITEK II <=1 mcg/ml: Susceptible Methicillin Resistant Staph aureus Trimeth/Sulfamethoxazol e [facility] VITEK II <=10 mcg/ml: Susceptible Methicillin Resistant Staph aureus Vancomycin [facility] VITEK II <=0.5 mcg/ml: Susceptible Bianka Diasrich [facility] MICROBIOLOGY - GENERAL O RDERABLES Final Result Performing Organization Address [facility] Co de Phone Number [facility] [address] [place] [address], [place] * CULTURE, URINE (03/23/2023 5:04 PM CDT) [facility] CULTURE RESULTS MIXED GROWTH OF ONE OR MORE DISTAL URETHRAL CONTAMINANTS 03/25/2023 11:41 AM CDT [facility] Urine URINE SPECIMEN COLLECTION, CLEAN CATCH / Unknown Non-Phlebotomy Collection / Unknown 03/23/2023 5:04 PM CDT 03/23/2023 5:04 PM CDT Bianka Diasrich [facility] MICROBIOLOGY - GENERAL O RDERABLES Final Result Performing Organization Address [facility] de Phone Number [facility] [address] [place] [address], [place] * (ABNORMAL) URINALYSIS REFLEX IF INDICATED BY ABNORMAL RESULTS (03/23/2023 5:04 PM CDT) [facility] SPECIFIC GRAVITY 1.010 1.003 - 1.030 03/23/2023 9:11 PM CDT [facility] URINE PH 8.0 5.0 - 9.0 03/23/2023 9:11 PM CDT [facility] WBC ESTERASE 500 /uL(A) Negative 03/23/2023 9:11 PM CDT [facility] NITRITE Negative Negative 03/23/2023 9:11 PM CDT [facility] PROTEIN, RANDOM URINE 15 mg/dL(A) Negative 03/23/2023 9:11 PM CDT [facility] URINE GLUCOSE, QUAL Negative Negative 03/23/2023 9:11 PM CDT [facility] URINE KETONES 5 mg/dL(A) Negative 03/23/2023 9:11 PM CDT [facility] UROBILINOGEN Normal Normal mg/dL 03/23/2023 9:11 PM CDT [facility] URINE BLOOD 10 /uL(A) Negative terry/ul 03/23/2023 9:11 PM CDT [facility] URINALYSIS COLOR Yellow 03/23/20 9:11 PM CDT [facility] URINALYSIS CLARITY Slightly Cloudy 03/23/2023 9:11 PM CDT [facility] WBC (Urine) 6-10(A) Negative, 0-5 /hpf 03/23/2023 9:11 PM CDT [facility] URINE RBC'S 0-2 Negative, 0-2 /hpf 03/23/2023 9:11 PM CDT [facility] EPITHELIAL CELLS Large amount squamous /lpf 03/23/2023 9:11 PM CDT [facility] BACTERIA, URINE Moderate(A) Negative /hpf 03/23/2023 9:11 PM CDT [facility] Urine URINE SPECIMEN COLLECTION, CLEAN CATCH / Unknown Non-Phlebotomy Collection / Unknown 03/23/2023 5:04 PM CDT 03/23/2023 5:04 PM CDT us Bianka Oneill PAC URINE ORDERABLES Final R esult [facility] [address] [place] [address] * (ABNORMAL) POCT UA AUTOMATED W/O MICRO (03/23/2023 3:59 PM CDT) POC UA SPECIFIC GRAVITY 1.015 URINE PH 8.0 5.0 - 9.0 POC URINE LEUKOCYTES 500 /uL(A) Negative Saulo/uL POC URINE NITRITE Negative Negative POC URINE PROTEIN Negative Negative mg/dL POC URINE GLUCOSE Norm Negative, Norm mg/dL POC URINE KETONE Negative Negative mg/dL POC URINE UROBILINOGEN Norm Norm, 0.2 E.U./dL (mg/dL), 1 E.U./dL (mg/dL) POC URINE BILIRUBIN Negative Negative mg/dL POC URINE BLOOD INSTRUMENT Negative Negative Terry/uL POC URINE COLOR Dark Yellow POC URINE CLARITY Slightly Cloudy Urine 03/23/2023 3:59 PM CDT Bianka Oneill [facility] POINT OF CARE TESTING (M ANUAL) Final Result * POCT URINE HCG () (03/23/2023 3:58 PM CDT) POC URINE Negative POC URINE CONTROL [employer] Urine 03/23/2023 3:58 PM CDT Result [facility] Bianka Oneill [facility] POINT OF CARE TESTING (M ANUAL) Final Result documented in this encounter Visit Diagnoses Diagnosis UTI symptoms- Primary Amenorrhea Absence of menstruation Abscess Cellulitis and abscess of unspecified site Anxiety Anxiety state, unspecified Anxiety and depression Dysthymic disorder Anemia, unspecified type documented in this encounter Additional Health Concerns Assessment Noted Time PHQ-9 Depression Total Score: 6 08/18/20 22 8:00 AM CRUSHER [employer] GR[employer] MICA documented as of this encounter Care Teams Chief Executive Relationship Specialty Start Date End Date Bianka Oneill PAC [address] [place] [address] PCP - General Physician Sports Medicine Trainer 08/18/22 documented as of this encounter
--- OUTSIDE RECORDS SUMMARY | 2024-09-22 20:29 | XMS_ITS | Encounter Summary ---
Author Organization [facility] Address [address] [place] [address] Phone Care Team Providers Care Configuration Manager Name Role Phone Bianka Oneill Primary Care Provider + Reason for Visit * Reason Comments Anxiety Encounter Details Date Type Department Care Team (Late st Contact Info) Description 05/05/2023 11:30 AM CDT Telemedicine [facility] Medical [facility] - Family Medicine [facility] [address] [place] [address] Bianka Oneill PAC [address] [place] [address] Anxiety (Primary Dx) Social History Tobacco Use Types Packs/Day Years [...] as of this encounter Progress Notes * Sandra Lira, RIB STIFFENER AND HEEL DIPPER - 05/05/2023 11:30 AM CDT Annalise Vogt, 18 y.o., female is here for Anxiety Medication Refills: Patient reports/denies need for medication refills. Orders Pended: no Requested Prescriptions No prescriptions requested or ordered in this encounter Home Medications Medication Sig Start Date End Date Taking? Authorizing Provider Docusate Calcium (STOOL SOFTENER PO) Take by mouth. Yes Debbie Khan MD doxycycline hyclate (VIBRAMYCIN) 100 MG Capsule Take 1 Capsule by mouth 2 times daily for 10 days. Patient not taking: Reported on 05/05/2023 05/04/23 05/14/23 Bianka Oneill PAC Escitalopram Oxalate (LEXAPRO PO) Take 15 mg by mouth daily. Yes Debbie Khan MD famotidine (PEPCID) 20 MG Tablet Take 1 Tablet by mouth 2 times daily. 04/17/23 Yes Bianka Oneill PAC ferrous sulfate 325 (65 Fe) MG Tablet Take 1 Tablet by mouth 2 times daily. 02/27/23 Yes Bianka Oneill PAC ondansetron (ZOFRAN-ODT) 4 MG TABLET DISPERSIBLE DISSOLVE 1 TABLET ON THE TONGUE EVERY 6 HOURS NEEDED FOR NAUSEA OR VOMITING 02/18/23 Yes Debbie Khan MD scopolamine (TRANSDERM-SCOP) 1 [...] have been addressed with the patient today: Video visit * Bianka Oneill PAC - 05/05/2023 11:30 AM CDT Subjective: Subjective .Patient was assessed via online video for a duration of 13 minutes.?? Patient verbally consented for this service to be performed and billed.The patient was at home. Patient discussed increase anxiety since she recently had surgery on he hip and is unable to work, has to stay at home Has been taking lexapro 15 mg daily without SE Discussed on pain medication since surgery and hydrocodone causes nausea Review of Systems Constitutional: Negative for chills and fever. Respiratory: Negative for cough and shortness of breath. Cardiovascular: Negative for chest pain. Gastrointestinal: Positive for nausea. Genitourinary: Negative for dysuria and frequency. Psychiatric/Behavioral: Negative for suicidal ideas. The patient is nervous/anxious. Objective: Objective Physical Exam Constitutional: Appearance: Normal appearance. She is not ill-appearing. HENT: Head: Normocephalic and atraumatic. Eyes: General: Right eye: No discharge. Left eye: No discharge. Extraocular Movements: Extraocular movements intact. Pulmonary: Effort: No respiratory distress. Skin: General: Skin is warm. Neurological: Mental Status: She is alert. Psychiatric: Mood and Affect: Mood normal. Assessment and Plan See Diagnoses, Orders, Follow-up, and Instructions .Diagnoses and all orders for this visit: Anxiety - escitalopram (Lexapro) 20 MG Tablet; Take 1 Tablet by mouth daily. Other orders - HYDROcodone-acetaminophen (NORCO) 5-325 MG Tablet; TAKE 1 TABLET BY MOUTH EVERY 4 TO 6 HOURS NEEDED FOR PAIN - ondansetron (ZOFRAN-ODT) 4 MG TABLET DISPERSIBLE; Take 1 Tablet by mouth every 8 hours as needed for Nausea - 1st line. - busPIRone (BUSPAR) 15 MG Tablet; Take 0.5 Tablets by mouth 2 times daily. Patient will increase lexapro to 20 mg daily, will add buspar for anxiety Discussed use of medications and possible SE, notify if any problems or worsening symptoms rtc in 6 weeks for follow up documented in this encounter Plan of Treatment Upcoming Encounters Date Type Department Care Team (Late st Contact Info) Description 10/07/2024 3:00 PM SLACK LINE YARDER Office Visit [facility] - [facility] [address] [place] [address] Bianka Oneill PAC [address] [place] [address] documented as of this encounter Visit Diagnoses Diagnosis Anxiety- Primary Anxiety state, unspecified documented in this encounter Additional Health Concerns Infection Onset Date Last Indicated Resolved Time 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
--- OUTSIDE RECORDS SUMMARY | 2024-09-22 20:29 | XMS_ITS | Encounter Summary ---
Author Organization [facility] Address [address] [place] [address] Phone Care Team Providers Care Porcelain Enameler Name Role Phone Bianka nOeill PAC Primary Care Provider + Reason for Visit * Reason Comments New Patient * Consult, Test & Initiate Treatment (Routine) - Closed Specialty Diagnoses / Procedures Referred By Conttyson t Referred To Contact Oncology Diagnoses Iron deficiency anemia, unspecified iron deficiency anemia type Bianka Oneill PAC [address] [place] [address] Phone: tel: fax: [facility] [address] [place] [address] Phone: tel: fax: Referral ID Status Reason Start Date Expiration Date Visits Re quested Visits Authorized [id number] Closed 11/30/2022 1 1 Encounter Details Date Type Department Care Team (Late st Contact Info) Description 01/26/2023 9:15 AM CDT Office Visit [facility] [address] [place] [address] Bianka Oneill PAC [address] [place] [address] Pepper Reyes, PAC [address] [place] [address] Iron deficiency anemia, unspecified iron deficiency anemia [...] Sign Reading Time Taken Comments Blood Pressure 130/74 01/26/2023 9:14 AM CDT Pulse 110 01/26/2023 9:14 AM CDT Temperature 36.7 ??C (98 ??F) 01/26/2023 9:14 AM CDT Respiratory Rate 18 01/26/2023 9:14 AM CDT Oxygen Saturation 100% 01/26/2023 9:14 AM CDT Inhaled Oxygen Concentration - - Weight 105 kg (231 lb 8 oz) 01/26/2023 9:14 AM C DT Height 160.7 cm (5' 3.25 ) 01/26/2023 9:14 AM CD T Body Mass Index 40.68 01/26/2023 9:14 AM CDT Body Mass Index Percentile 99.06% 01/26/2023 9:1 4 AM CDT Growth Chart: [facility] (Girls, 2- 20 Years) documented in this encounter Patient Instructions * Patient Instructions* Pepper Reyes PAC - 01/26/2023 9:15 AM CDT Iron rich diet- handout provided Continue oral iron supplement - be sure to take iron supplement on an empty stomach with vitamin-C Avoid ibuprofen/Aleve/naproxen-may use Tylenol or Tylenol arthritis as needed for pain. Proceed with Venofer 300 mg times for infusions. Plan repeat labs 6 weeks after last infusion with office visit approximately 1 week after labs havebeen drawn. Follow-up with Women's healthcare provider for evaluation/management of menorrhagia/excessive heavyperiods If you had lab work or other testing ordered at this visit, we will contact you regarding the results once all results have been received and reviewed or discuss at scheduled follow up. You may be able to see results in your my chart as they come in, please remember the computer is only given parameters for what is ???normal?? or ???abnormal?? . The significance of anything in the ???abnormal?? range is frequently based on the remaining test results. If you are required to have labs/ [...] call or go to the emergency department. * Attachments The following attachments cannot be sent through Care Everywhere. * Iron-Rich Diet (Tuvaluan) documented in this encounter Progress Notes * Pepper Reyes PAC - 01/26/2023 9:15 AM CDT Outpatient Hem/Onc Progress Note Annalise Vogt is a 17 y.o. female seen today for evaluation iron-deficiency anemia. 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 States was diagnosed with anemia proximally 2 years ago and since that time has been on oral iron supplement consistently. Reports taking oral iron supplement twice daily with source of vitamin-C but not on an empty stomach. Denies weight loss/ malaise/ fatigue. Denies fever/ chills/ night sweats. Denies headache/ facial pain or sinus pressure or pain. Denies visual disturbance. Denies earache/ hearing loss or tinnitus. No nasal discharge. Reports frequent/ daily epistaxis. Denies any oral lesions. Reports diagnosis of gingivitis therefore does experience bleeding from gums. Denies sore throat/ hoarseness. Denies any unusual neck pain/ stiffness or swelling. Denies chest pain/ pressure/ heaviness/ tightness. Denies cough/ sob/ wheezing/ GOMEZ. Normal appetite. Denies heartburn/ reflux/ nausea/ vomiting/ abdominal pain/ constipation/ diarrhea/ mucus or BRBPR. Denies black or tarry stools. Denies lesions/ rash/ itching/ discoloration to skin. Denies new or unusual joint pain/stiffness or muscle aches. Denies urinary urgency/ frequency/ burning or pain. Denies lightheadedness/ dizziness/ vertigo or fainting. Denies any numbness or tingling. Denies insomnia/ anxiety/ depression. Denies breast pain/ lump/ nipple discharge. Menarche at age 15. Last menstrual cycle 01/23/2023. Reports cycles occur basis approximately every 4 weeks however they will last 6 days with an excessively heavy flow requiring changing of pads or tampons every 1 hour for the 1st few days and every 2 hours for the remainder of her cycle. She has had trials of Nexplanon as well as IUD which seem to make bloating worse. 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 Did recently have spontaneous 12/16/2022. / A1. ECOG PERFORMANCE STATUS: 0 DIAGNOSIS/TREATMENT HISTORY: Reviewed patients past medical, surgical, social, and family history. Outpatient Medications Marked as Taking for the 01/26/23 encounter (Office Visit) with Pepper Reyes PAC Medication Sig Dispense Refill ??? Docusate Calcium (STOOL SOFTENER PO) Take by mouth. ??? escitalopram (LEXAPRO) 20 MG Tablet Take 1 Tablet by mouth daily. 90 Tablet 1 ??? ferrous sulfate 325 (65 Fe) MG Tablet Take 1 Tablet by mouth 2 times daily. 60 Tablet 3 ??? meloxicam (MOBIC) 15 MG Tablet ??? polyethylene glycol (GLYCOLAX) 17 GM/SCOOP Powder Take 17 g by mouth. Allergies as of 01/26/2023 ??? (No Known Allergies) Patient Active Problem List Diagnosis ??? Iron deficiency anemia Physical Exam GENERAL:Well developed, well nourished, morbidly obese, in no acute distress. AAO x3. Cooperative. HEENT:Normocephalic. PERRLA. Nonicteric. NECK:Supple/ non tender/ full ROM. LYMPH NODES:No adenopathy. CARDIOVASCULAR:RRR/ S1S2/ No m/g/c/r. PULMONARY: Respirations easy and regular. Breath sounds clear bilaterally. No rhonchi/ rales/ wheezes. MUSCULOSKELETAL:Full ROM all extremities. No tenderness/ swelling/ crepitus. SKIN: General-warm, pink and dry. No rashes/ lesions. PSYCHIATRIC:Euthymic. Affect congruent with mood. Normal thought processes. PAIN ASSESSMENT: 0 DATA: Results for orders placed or performed in visit on 01/13/23 IRON W/IRON BINDING CAPACITY Result Value Ref Range IRON 36.21 (L) 37 - 145 mcg/dL % SATURATION * 9 (L) 20 - 55 % UIBC 354 (H) 112 - 346 mcg/dL TIBC CALC 390 149 - 491 mcg/dL HERPES ZOSTER (VARICELLA) IGG Result Value Ref Range VARICELLA ZOSTER IGG 1.0 (L) >=1.1 AI RUBEOLA (MEASLES) IGG Result Value Ref Range MEASLES AB IGG 4.3 >=1.1 AI MUMPS IGG Result Value Ref Range Mumps Ab IgG 2.5 >=1.1 AI RUBELLA IMMUNITY IGG Result Value Ref Range RUBELLA IMMUNITY Immune Immune, Invalid CBC: 11/29/2022 WBC 9.89 Hgb 10.8 Hct 36.2 Platelets 296 ANC 5.82 CMP: 11/29/2022 Na 141 K 3.8 Cl 106 CO2 24 Glu 91 BUN 7 Cr 0.48 AST 16 ALT 14 Alk Phos 98 T. bili <0.3 Iron panel: 11/29/2022 Iron 14.46 Sat 4% UIBC 350 TIBC 364 Ferritin 5 Assessment: Diagnoses and all orders for this visit: Menorrhagia with regular cycle Iron deficiency anemia, unspecified iron deficiency anemia type - HEMATOLOGY ONCOLOGY REFERRAL Plan: -Reviewed above labs and history. Advised anemia is most likely related to menorrhagia. -Encouraged to follow-up with Women's Health provider for evaluation/management of menorrhagia. Will proceed with iron infusion-Venofer 300 mg times for infusions. -Was encouraged iron rich diet-handout provided. -May continue current iron supplement twice daily with vitamin-C on an empty stomach. -Was encouraged to avoid ibuprofen/naproxen type products-use Tylenol as needed for pain. -Advise to avoid excessive amounts of coffee/tea/dairy products. -Was encouraged to use saline nasal spray frequently throughout the day to reduce episodes of epistaxis. -Will repeat labs for evaluation of other contributing factors to anemia as well as response to treatment, approximate 6 weeks after final Venofer infusion and plan office visit approximately 1 week after labs. Diagnoses and all orders for this visit: Menorrhagia with regular cycle Iron deficiency anemia, unspecified iron deficiency anemia type - HEMATOLOGY ONCOLOGY REFERRAL Return in 3 months (on 04/28/2023) for Anemia, Review labs/ tests after completed. The patient was given an opportunity to ask questions, and all questions answered to patient's satisfaction. Patient verbalizes understanding of the plan as outlined above. Patient Instructions Iron rich diet- handout provided Continue oral iron supplement - be sure to take iron supplement on an empty stomach with vitamin-C Avoid ibuprofen/Aleve/naproxen-may use Tylenol or Tylenol arthritis as needed for pain. Proceed with Venofer 300 mg times for infusions. Plan repeat labs 6 weeks after last infusion with office visit approximately 1 week after labs havebeen drawn. Follow-up with Women's healthcare provider for evaluation/management of menorrhagia/excessive heavyperiods If you had lab work or other testing ordered at this visit, we will contact you regarding the results once all results have been received and reviewed or discuss at scheduled follow up. You may be able to see results in your my chart as they come in, please remember the computer is only given parameters for what is ???normal?? or ???abnormal?? . The significance of anything in the ???abnormal?? range is frequently based on the remaining test results. If you are required to have labs/ [...] * Interdisciplinary - Nereida Le MA - 01/26/2023 9:15 AM CDT New pt consult for iron deficiency anemia. No pain, today. Meds reviewed with pt and are up to date--tjo * Interdisciplinary - Nereida Le MA - 01/26/2023 9:15 AM CDT Discussed discharge instructions. AVS given--tjo documented in this encounter Plan of Treatment Upcoming Encounters Date Type Department Care Team (Late st Contact Info) Description 10/07/2024 3:00 PM RN PATIENT SERVICES Office Visit [facility] Medical [facility] [address] [place] [id number] Bianka Oneill, PAC [address] [place] [address] Scheduled Orders Name Type Priority Associated Diagnoses Orde r Schedule FOLIC ACID (FOLATE) Lab Routine Iron deficiency anemia, unspecified iron deficiency anemia type Menorrhagia with regular cycle Expected: 03/28/2023, Expires: 06/28/2023 TRANSFERRIN Lab Routine Iron deficiency anemia, unspecified iron deficiency anemia type Menorrhagia with regular cycle Expected: 03/28/2023, Expires: 06/28/2023 COMPLETE BLOOD COUNT (CBC) WITH DIFF Lab Routine Iron deficiency anemia, unspecified iron deficiency anemia type Menorrhagia with regular cycle Expected: 03/28/2023, Expires: 06/28/2023 VITAMIN B12 Lab Routine Iron deficiency anemia, unspecified iron deficiency anemia type Menorrhagia with regular cycle Expected: 03/28/2023, Expires: 06/28/2023 RETICULOCYTE COUNT (RETIC) Lab Routine Iron deficiency anemia, unspecified iron deficiency anemia type Menorrhagia with regular cycle Expected: 03/28/2023, Expires: 06/28/2023 FREE KAPPA & LAMBDA LIGHT CHAINS SERUM Lab Routine Iron deficiency anemia, unspecified iron deficiency anemia type Menorrhagia with regular cycle Expected: 03/28/2023, Expires: 06/28/2023 IMMUNOFIXATION W/ ELECTROPHORESIS SERUM Lab Routine Iron deficiency anemia, unspecified iron deficiency anemia type Menorrhagia with regular cycle Expected: 03/28/2023, Expires: 06/28/2023 documented as of this encounter Results * LACTATE DEHYDROGENASE (LD) (04/17/2023 9:49 AM CDT) LDH 155 135 - 214 U/L 04/17/2023 1:19 PM CDT [facility] Blood Venipuncture / Unknown 04/17/2023 9:49 AM CDT 04/17/2023 9:49 AM CDT us Pepper Reyes PAC CHEMISTRY ORDERABLES Mayela l Result [facility] [address] [place] [address] * (ABNORMAL) CMP (COMPREHENSIVE METABOLIC PANEL) (04/17/2023 9:49 AM CDT) SODIUM 141 136 - 144 mmol/L 04/17/2023 1:19 PM CDT [facility] POTASSIUM 4.0 3.5 - 5.1 mmol/L 04/17/2023 1:19 PM CDT [facility] CHLORIDE 105 100 - 110 mmol/L 04/17/2023 1:19 PM CDT [facility] CO2, VENOUS 23 22 - 32 mmol/L 04/17/2023 1:19 PM CDT [facility] ANION GAP 17.0 8.0 - 20.0 mmol/L 04/17/2023 1:19 PM CDT [facility] GLUCOSE 87 70 - 99 mg/dL 04/17/2023 1:19 PM CDT [facility] BUN 9 6 - 20 mg/dL 04/17/2023 1:19 PM CDT [facility] CREATININE, BLOOD 0.53(L) 0.60 - 1.10 mg/dL 04/17/2023 1:19 PM CDT [facility] BUN/CREATININE RATIO 17 12 - 20 ratio 04/17/2023 1:19 PM CDT [facility] TOTAL PROTEIN 7.1 6.0 - 8.3 g/dL 04/17/2023 1:19 PM CDT [facility] ALBUMIN 4.4 3.5 - 5.2 g/dL 04/17/2023 1:19 PM CDT [facility] A/G RATIO 1.6 1.0 - 2.0 04/17/2023 1:19 PM CDT [facility] CALCIUM 9.8 8.7 - 10.5 mg/dL 04/17/2023 1:19 PM CDT [facility] T BILI 0.2 0.2 - 1.2 mg/dL 04/17/2023 1:19 PM CDT [facility] SGOT (AST) 15 <=32 U/L 04/17/2023 1:19 PM CDT [facility] SGPT (ALT) 16 <=41 U/L 04/17/2023 1:19 PM CDT [facility] ALKALINE PHOSPHATASE 83 35 - 105 U/L 04/17/2023 1:19 PM CDT [facility] IS THE PATIENT REQUIRED TO BE FASTING? No 04/17/2023 1:19 PM CDT [facility] GFR, ESTIMATED >60 >=60 04/17/2023 1:19 PM CDT [facility] Comment: Creatinine Clearance is the preferred criteria for selecting drug dose adjustments in renally impaired patients. ??The GFR is provided as additional pertinent clinical information. GFR is reported in mL/min/1.73 sq m. Calculation based on the Chronic Kidney Disease Epidemiology Collaboration (CKD- EPI) equation refit without adjustment for race. UNABLE TO CALCULATE GFR, EST. 023 1:19 PM CDT [facility] GFR, EST. NONAFRICAN 04/17/2023 1:19 PM CDT [facility] Blood Venipuncture / Unknown 04/17/2023 9:49 AM CDT 04/17/2023 9:49 AM CDT Pepper Reyes PAC CHEMISTRY ORDERABLES Mayela l Result [facility] [address] [place] [address] * (ABNORMAL) IRON W/IRON BINDING CAPACITY (04/17/2023 9:49 AM CDT) IRON 39.57 37 - 145 mcg/dL 04/17/2023 1:19 PM CDT [facility] % SATURATION * 13(L) 20 - 55 % 04/17/2023 1:19 PM CDT [facility] UIBC 268 112 - 346 mcg/dL 04/17/2023 1:19 PM CDT [facility] TIBC CALC 308 149 - 491 mcg/dL 04/17/2023 1:19 PM CDT [facility] Blood Venipuncture / Unknown 04/17/2023 9:49 AM CDT 04/17/2023 9:49 AM CDT [facility] PAC CHEMISTRY ORDERABLES Mayela l Result Performing Organization Address City/[facility]/ZIP Co de Phone Number [facility] [address] [place] [address] * FERRITIN (04/17/2023 9:49 AM CDT) FERRITIN 38 13 - 150 ng/mL 04/17/2023 1:19 PM CDT [facility] Blood Venipuncture / Unknown 04/17/2023 9:49 AM CDT 04/17/2023 9:49 AM CDT [facility] PAC CHEMISTRY ORDERABLES Mayela l Result Performing Organization Address [facility] Co de Phone Number [facility] [address] [place] [address] documented in this encounter Visit Diagnoses Diagnosis Iron deficiency anemia, unspecified iron deficiency anemia type- Primary Menorrhagia with regular cycle Excessive or frequent menstruation documented in this encounter Additional Health Concerns Assessment Noted Time PHQ-9 Depression Total Score: 6 08/18/20 22 8:00 AM RN PATIENT SERVICES documented as of this encounter Care Teams Porcelain Enameler Relationship Specialty Start Date End Date Bianka Oneill PAC [address] [place] [address] PCP - General Physician Capacitor Pack Press Operator 08/18/22 documented as of this encounter
--- OUTSIDE RECORDS SUMMARY | 2024-09-22 20:29 | XMS_ITS | Encounter Summary ---
Author Organization [facility] Address [address] [place] [address] Phone Care Team Providers Care Comparative Sociology Professor Name Role Phone Bianka Oneill Primary Care Provider + Reason for Visit * Episode Based Medications (Routine) - Closed Specialty Diagnoses / Procedures Referred By Contac t Referred To Contact Diagnoses Iron deficiency anemia, unspecified iron deficiency anemia type Pepper Reyes, PAC [address] [place] [address] Phone: tel: fax: [facility] [address] [place] [address] Phone: tel: fax: Referral ID Status Reason Start Date Expiration Date Visits Re quested Visits Authorized [id number] Closed 01/26/2023 1 1 Encounter Details Date Type Department Care Team (Late st Contact Info) Description 02/03/2023 1:30 PM CDT Clinical Support [facility] [address] [place] [id number] Pepper Reyes PAC [address] [place] [address] Iron deficiency anemia, unspecified iron deficiency anemia [...] Sign Reading Time Taken Comments Blood Pressure 110/74 02/03/2023 1:29 PM CDT Pulse 89 02/03/2023 1:29 PM CDT Temperature 36.5 ??C (97.7 ??F) 02/03/2023 1:29 PM CD T Respiratory Rate 16 02/03/2023 1:29 PM CDT Oxygen Saturation 98% 02/03/2023 1:29 PM CDT Inhaled Oxygen Concentration - - Weight - - Height - - Body Mass Index - - documented in this encounter Miscellaneous Notes * Interdisciplinary - Lito Vargas RN - 02/03/2023 1:30 PM CDT Pt ambulated to treatment room. Vitals obtained. IV access x3 attempts. IV placed by Maddy Castillo RN. Flushed without difficulty, blood return present. Medicated per MD orders. Tolerated well. IV removed. Gauze and coband applied. Pt left in stable condition. documented in this encounter Plan of Treatment Upcoming Encounters Date Type Department Care Team (Late st Contact Info) Description 10/07/2024 3:00 PM INFORMATION SECURITY SPECIALIST Office Visit [facility] [address] [place] [address] Bianka Oneill PAC [address] [place] [address] documented as of this encounter Visit Diagnoses Diagnosis Iron deficiency anemia, unspecified iron deficiency anemia type- Primary documented in this encounter Administered Medications Inactive Administered Medications - up to 3 most recent administrations Medication Order MAR Action Action Date Dose Rate Site iron sucrose (VENOFER) 300 mg in sodium chloride 0.9 % 250 mL IVPB 300 mg, Intravenous, ONCE, 1 dose, On Mon02/03/23 at 1430, Administer over 90 Minutes, Monitor patient for 30 minutes after infusion completedIndications:Iron deficiency anemia, unspecified iron deficiency anemia type New Bag 02/03/2023 1:57 PM CDT 300 mg 166.7 mL/hr documented in this encounter Additional Health Concerns Assessment Noted Time PHQ-9 Depression Total Score: 6 08/18/20 22 8:00 AM INFORMATION SECURITY SPECIALIST documented as of this encounter Care Teams Comparative Sociology Professor Relationship Specialty Start Date End Date Bianka Oneill PAC [address] [place] [address] PCP - General Physician Music Typographer 08/18/22 documented as of this encounter
--- OUTSIDE RECORDS SUMMARY | 2024-09-22 20:29 | XMS_ITS | Encounter Summary ---
Author Organization [facility] Address [address] [place] [address] Phone Care Team Providers Care Quality Assurance Clerk Name Role Phone Bianka Oneill Primary Care Provider + Reason for Visit * Reason Comments Rash Encounter Details Date Type Department Care Team (Latest Contact Info) Description 03/15/2023 9:30 AM CDT Urgent Care Visit [facility] [place] [address] [place] [address] Archana Mott, GIANNI, OBSTETRICAL TECH [address] [place] [address] Folliculitis (Primary Dx) Discharge Disposition: Discharged to home [...] Sign Reading Time Taken Comments Blood Pressure 108/62 03/15/2023 9:32 AM CDT Pulse 84 03/15/2023 9:32 AM CDT Temperature 36.3 ??C (97.3 ??F) 03/15/2023 9:32 AM CD T Respiratory Rate 20 03/15/2023 9:32 AM CDT Oxygen Saturation 99% 03/15/2023 9:32 AM CDT Inhaled Oxygen Concentration - - Weight - - Height - - Body Mass Index - - documented in this encounter Patient Instructions * Patient Instructions* Archana Mott APRN, CNP - 03/15/2023 9:30 AM CDT Keep affected area clean and dry Observe for worsening signs and symptoms Medications as discussed Follow up with pcp or prompt care as needed * Attachments The following attachments cannot be sent through Care Everywhere. * Folliculitis (Danish) documented in this encounter Progress Notes * Katina Huerta RN - 03/15/2023 9:30 AM CDT Annalise Vogt complains of Sore lump to right axille noted this past Monday Rash to right axilla developed the following day. Rash has slightly spread to left axilla Rash is painful but not itching Rash This is a new problem. The current episode started in the past 7 days. The problem has been gradually worsening since onset. The rash is characterized by pain, redness and swelling. Past treatments include nothing. Today's Review of Systems Skin: Positive for rash. * Archana Mott APRN, CNP - 03/15/2023 9:30 AM CDT Images from the original note were not included. HPI: Annalise Vogt is a 17 y.o. female in the [facility] care today for rash and a swollen lymph node in the right axilla. She states she first noted the rash 2- 3 days ago. It has since spread down her side and has a few spots on the left side also. She denies pain with the rash. She states it is slightly itchy. Symptoms started 2 days agoo Severity of symptoms is mild Symptoms are has worsened Patient is not currently taking over the counter medications for the symptoms. Smoker: No No pertinent Past, family, or social history was noted Patient Active Problem List Diagnosis ??? Iron deficiency anemia ??? Menorrhagia with regular cycle ROS: Review of Systems Constitutional: Negative for chills and fever. HENT: Negative for ear pain and sore throat. Eyes: Negative for pain and visual disturbance. Respiratory: Negative for cough and shortness of breath. Cardiovascular: Negative for chest pain and palpitations. Gastrointestinal: Negative for abdominal pain and vomiting. Genitourinary: Negative for dysuria and hematuria. Musculoskeletal: Negative for arthralgias and back pain. Skin: Positive for rash. Negative for color change. Neurological: Negative for seizures and syncope. All other systems reviewed and are negative. PE: BP 108/62 (BP Location: Left Arm, BP Position: Sitting, BP Cuff Size: Large) Pulse 84 Temp 97.3??F (36.3 ??C) (Temporal) Resp 20 LMP 02/20/2023 (Exact Date) SpO2 99% No Physical Exam Vitals and nursing note reviewed. Constitutional: Appearance: Normal appearance. Neck: Comments: Enlarged Right axillary lymph node noted, tender to palpation Cardiovascular: Rate and Rhythm: Normal rate and regular rhythm. Pulses: Normal pulses. Heart sounds: Normal heart sounds. Pulmonary: Effort: Pulmonary effort is normal. Breath sounds: Normal breath sounds. Lymphadenopathy: Cervical: Cervical adenopathy present. Skin: General: Skin is warm and dry. Findings: Rash present. Rash is pustular. Comments: Pustular rash with surrounding erythema noted to the right inner upper arm and chest. Left upper inner arm noted to the have a few similar lesions Neurological: Mental Status: She is alert. ASSESSMENT/PLAN: Diagnoses and all orders for this visit: Folliculitis Other orders - cephALEXin (KEFLEX) 500 MG Capsule; Take 1 Capsule by mouth 2 times daily for 10 days. Patient Instructions Keep affected area clean and dry Observe for worsening signs and symptoms Medications as discussed Follow up with pcp or prompt care as needed Chief complaint and all history documented by ancillary staff were reviewed and verified, with additions or corrections, as appropriate. documented in this encounter Plan of Treatment Upcoming Encounters Date Type Department Care Team (Late st Contact Info) Description 10/07/2024 3:00 PM LABORATORY EQUIPMENT INSTALLER Office Visit [facility] Medicine [facility] [address] [place] [address] Bianka Oneill PAC [address] [place] [address] documented as of this encounter Visit Diagnoses Diagnosis Folliculitis- Primary Other specified disease of hair and hair follicles documented in this encounter Additional Health Concerns Assessment Noted Time PHQ-9 Depression Total Score: 6 08/18/20 22 8:00 AM LABORATORY EQUIPMENT INSTALLER documented as of this encounter Care Teams Quality Assurance Clerk Relationship Specialty Start Date End Date Bianka Oneill PAC [address] [place] [address] PCP - General Physician Cow Puncher 08/18/22 documented as of this encounter
--- OUTSIDE RECORDS SUMMARY | 2024-09-22 20:30 | XMS_ITS | Encounter Summary ---
Author Organization [facility] Address [address] [place] [address] Phone Care Team Providers Care Sales Broker Name Role Phone Bianka Oneill Primary Care Provider + Reason for Referral * Consult, Test & Initiate Treatment (Routine) - Closed Specialty Diagnoses / Procedures Referred By Conttyson t Referred To Contact Diagnoses Left hip pain Bianka Oneill, YARED [address] [place] [address] Phone: tel: fax: [facility] [address] [place] [address] [address] [place] [address] Phone: tel: fax: Referral ID Status Reason Start Date Expiration Date Visits Re quested Visits Authorized [id number] Closed 08/19/2022 1 1 Scheduling Instructions Annalise is being referred to Orthopedic Trauma or other specialist in patient's insurance network for possible left femoroacetabular impingement.. See below for Annalise's current medications, allergies and problem list. CURRENT MEDS: Current Outpatient Medications: albuterol 108 (90 Base) MCG/ACT Aerosol Solution, 2 puffs inhaled every 4-6 hours as needed for shortness of breath, Disp: 6.7 g, Rfl: 0 escitalopram (LEXAPRO) 10 MG Tablet, Take 1 Tablet by mouth daily., Disp: 30 Tablet, Rfl: 2 naproxen (NAPROSYN) 500 MG Tablet, Take 1 Tablet by mouth 2 times daily (with meals)., Disp: 60 Tablet, Rfl: 0 No current facility-administered medications for this visit. ALLERGIES: No Known Allergies PROBLEM LIST: There is no problem list on file for this patient. LITIES ENGINEER Reason for Visit * Reason Onset Date Comments Results 08/19/2022 Encounter Details Date Type Department Care Team (Late st Contact Info) Description 08/19/2022 Telephone [facility] [place] [address] [place] [address] Bianka Oneill PAC [address] [place] [address] Results Social History Tobacco Use Types Packs/Day [...] suspected to have Coronavirus/COVID-19? No / Unsure 08/18/2022 8:08 AM FACILITIES ENGINEER documented as of this encounter Miscellaneous Notes * Telephone Encounter - Mable Blair RN - 08/19/2022 6:20 PM FACILITIES ENGINEER Spoke to pt's mother, on PRD. She states they are agreeable to referral and prefer to go to [facility] because she is also a patient there. Referral entered per order of Bianka Oneill. LITIES ENGINEER * Telephone Encounter - Mable Blair RN - 08/19/2022 6:12 PM FACILITIES ENGINEER ----- Message from YARED Sims sent at 08/19/2022 10:32 AM FACILITIES ENGINEER ----- Might have some impingement in hip joint, suggest see orthopedic, can place referral if agreeable LITIES ENGINEER documented in this encounter Plan of Treatment Upcoming Encounters Date Type Department Care Team (Late st Contact Info) Description 10/07/2024 3:00 PM FACILITIES ENGINEER Office Visit [facility] - Family Medicine [facility] [address] [place] [address] Bianka Oneill PAC [address] [place] [address] documented as of this encounter Procedures Procedure Name Priority Date/Time Associated Diagnosis Comments EXTERNAL ORTHOPEDIC REFERRAL Routine 05/26/2023 12:00 AM CDT Left hip pain documented in this encounter Results * EXTERNAL ORTHOPEDIC REFERRAL (05/26/2023 12:00 AM CDT) 05/26/2023 Bianka VAIL OUTPT REFERRALS EXT/INT Final Result SCAN documented in this encounter Visit Diagnoses Diagnosis Left hip pain- Primary Pain in joint, pelvic region and thigh documented in this encounter Additional Health Concerns Assessment Noted Time PHQ-9 Depression Total Score: 6 08/18/20 22 8:00 AM FACILITIES ENGINEER documented as of this encounter Care Teams Sales Broker Relationship Specialty Start Date End Date Bianka Oneill PAC [address] [place] [address] PCP - General Physician Torque Tester 08/18/22 documented as of this encounter
--- OUTSIDE RECORDS SUMMARY | 2024-09-22 20:30 | XMS_ITS | Encounter Summary ---
Author Organization [facility] Address [address] [place] [address] Phone Care Team Providers Care Golf Professional Name Role Phone Bianka Oneill Primary Care Provider + Reason for Visit * Reason Comments Follow-up 6 week follow up, warren berkowitz wants to talk to you about the Naproxen she doesn't feel it helps anymore. Encounter Details Date Type Department Care Team (Late st Contact Info) Description 09/30/2022 3:45 PM ADMINISTRATION MANAGER Office Visit [facility] - [facility] [address] [place] [address] Bianka Oneill, YARED [address] [place] [address] Anxiety and depression (Primary Dx); Left hip pain; Iron deficiency anemia, unspecified iron deficiency anemia [...] suspected to have Coronavirus/COVID-19? No / Unsure 09/30/2022 3:30 PM ADMINISTRATION MANAGER documented as of this encounter Last Filed Vital Signs Vital Sign Reading Time Taken Comments Blood Pressure 124/76 09/30/2022 3:36 PM ADMINISTRATION MANAGER Pulse 99 09/30/2022 3:36 PM ADMINISTRATION MANAGER Temperature 35.9 ??C (96.7 ??F) 09/30/2022 3:36 PM CS T Respiratory Rate 14 09/30/2022 3:36 PM ADMINISTRATION MANAGER Oxygen Saturation 99% 09/30/2022 3:36 PM ADMINISTRATION MANAGER Inhaled Oxygen Concentration - - Weight 109 kg (240 lb 6.4 oz) 09/30/2022 3:36 PM ADMINISTRATION MANAGER Height 160 cm (5' 3 ) 09/30/2022 3:36 PM ADMINISTRATION MANAGER Body Mass Index 42.58 09/30/2022 3:36 PM ADMINISTRATION MANAGER Body Mass Index Percentile 99.48% 09/30/2022 3:3 6 PM ADMINISTRATION MANAGER Growth Chart: [facility] (Girls, 2- 20 Years) documented in this encounter Functional Status * Question Answer Date of Assessment Author Little interest or pleasure in doing things Not at all 09/30/2022 4:00 PM ADMINISTRATION MANAGER Bianka Oneill Ma, PAC Feeling down, depressed, or hopeless Not at all 09/30/2022 4:00 PM ADMINISTRATION MANAGER Bianka Oneill Ma, PAC * Over the past 2 weeks, how often have you been bothered by any of the following problems? Question Answer Date of Assessment Author Patient Health Questionnaire-2 Score 0 09/30/2022 4:00 PM ADMINISTRATION MANAGER Bianka Oneill PAC documented as of this encounter Progress Notes * Felisa Kurtz - 09/30/2022 3:45 PM CST Annalise Vogt, 17 y.o., female is here for Follow-up (6 week follow up) Medication Refills: Patient reports/denies need for medication refills. Orders Pended: no Requested Prescriptions No prescriptions requested or ordered in this encounter Home Medications Medication Sig Start Date End Date Taking? Authorizing Provider Docusate Calcium (STOOL SOFTENER PO) Take by mouth. Yes Provider, MD Debbie escitalopram (LEXAPRO) 10 MG Tablet Take 1 Tablet by mouth daily. 08/18/22 Yes Bianka Oneill PAC ferrous sulfate 325 (65 Fe) MG Tablet Take 1 Tablet by mouth 2 times daily. 08/19/22 Yes Bianka Oneill PAC naproxen (NAPROSYN) 500 MG Tablet TAKE 1 TABLET BY MOUTH TWICE DAILY WITH MEALS 09/13/22 Yes Bianka Oneill PAC There are no [...] Drug use: Never Smoking Cessation Counseling Given: yes Health Care Maintenance: Health Maintenance Due Topic [...] have been addressed with the patient today: Mammogram, Pap, Smoking, Depression, Fall Risk, Nutrition, Advanced Care Planning and HCC NISTRATION MANAGER * Bianka Oneill PAC - 09/30/2022 3:45 PM CST Subjective: Patient in the office today for follow up on medication for anxiety and depression and to review last labs and imaging Discussed she does get heavy menses No SE from lexapro, feels working well, feels less overwhelmed Her fiance has returned home after medical discharge from Has left hip pain, mobic and naproxen did not help, was referred to orthopedic awaiting appointment Review of Systems Constitutional: Negative for chills and fatigue. HENT: Negative for congestion. Respiratory: Negative for cough and shortness of breath. Cardiovascular: Negative for chest pain and palpitations. Gastrointestinal: Negative for abdominal pain, nausea and vomiting. Musculoskeletal: Positive for arthralgias. Neurological: Negative for dizziness, light-headedness and headaches. Psychiatric/Behavioral: Negative for sleep disturbance and suicidal ideas. Objective: Physical Exam Vitals reviewed. [...] alert. Psychiatric: Mood and Affect: Mood normal. DANA score 2 . Lab Results Component Value Date SODIUM 140 08/18/2022 POTASSIUM 4.2 08/18/2022 CHLORIDE 106 08/18/2022 CO2VEN 24 08/18/2022 ANIONGAP 14.2 08/18/2022 GLUCOSE 90 08/18/2022 BUN 7 08/18/2022 CREATININE 0.55 08/18/2022 BCRATIO8 13 08/18/2022 TOTALPROTEIN 7.5 08/18/2022 ALBUMIN 4.6 08/18/2022 CALCIUM 10.2 08/18/2022 TBIL <0.3 08/18/2022 SGOTAST 16 08/18/2022 SGPTALT 15 08/18/2022 ALKALINEPHO 106 (H) 08/18/2022 GFRES >60 08/18/2022 . Lab Results Component Value Date WBC 8.63 08/18/2022 HEMOGLOBIN 10.0 (L) 08/18/2022 HEMATOCRIT 35.1 (L) 08/18/2022 PLATELETCNT 376 08/18/2022 MCV 65.7 (L) 08/18/2022 . Lab Results Component Value Date IRON 12.95 (L) 08/18/2022 FERRITIN 5 (L) 08/18/2022 . Lab Results Component Value Date TSH 2.990 08/18/2022 . Lab Results Component Value Date CHOLESTEROL 171 08/18/2022 TRIGLYCRIDES 88 08/18/2022 HDLCHOLESTE 34.0 (L) 08/18/2022 LDL 119 08/18/2022 Assessment and Plan See Diagnoses, Orders, Follow-up, and Instructions .Diagnoses and all orders for this visit: Anxiety and depression Left hip pain Iron deficiency anemia, unspecified iron deficiency anemia type Other orders - Docusate Calcium (STOOL SOFTENER PO); Take by mouth. - escitalopram (LEXAPRO) 10 MG Tablet; Take 1 Tablet by mouth daily. - celecoxib (CeleBREX) 200 MG Capsule; Take 1 Capsule by mouth 2 times daily. Patient to continue with lexapro for anxiety and depression Continue with iron supplement will recheck labs in 3 months Follow up with orthopedic, given celebrex for pain, notify if any problems with medication or worsening symptoms NISTRATION MANAGER documented in this encounter Plan of Treatment Upcoming Encounters Date Type Department Care Team (Late st Contact Info) Description 10/07/2024 3:00 PM ADMINISTRATION MANAGER Office Visit [facility] [address] [place] [address] Bianka Oneill PAC [address] [place] [address] documented as of this encounter Visit Diagnoses Diagnosis Anxiety and depression- Primary Dysthymic disorder Left hip pain Pain in joint, pelvic region and thigh Iron deficiency anemia, unspecified iron deficiency anemia type documented in this encounter Additional Health Concerns Assessment Noted Time PHQ-9 Depression Total Score: 6 08/18/20 22 8:00 AM ADMINISTRATION MANAGER documented as of this encounter Care Teams Golf Professional Relationship Specialty Start Date End Date Bianka Oneill, YARED [address] [place] [address] PCP - General Physician Red Hat Linux Administrator 08/18/22 documented as of this encounter
--- OUTSIDE RECORDS SUMMARY | 2024-09-22 20:30 | XMS_ITS | Encounter Summary ---
Author Organization [facility] Address [address] [place] [address] Phone Care Team Providers Care Miniature Train Driver Name Role Phone Bianka Oneill Primary Care Provider + Reason for Visit * Reason Onset Date Comments Results 08/19/2022 Encounter Details Date Type Department Care Team (Late st Contact Info) Description 08/19/2022 Telephone [facility] [address] [place] [address] Bianka Oneill PAC [address] [place] [address] Results Social History Tobacco Use Types Packs/Day [...] Coronavirus/COVID-19? No / Unsure 08/18/2022 8:08 AM OVERHEAD CRANE TECHNICIAN documented as of this encounter Miscellaneous Notes * Telephone Encounter - Mable Blair RN - 08/19/2022 4:50 PM OVERHEAD CRANE TECHNICIAN Spoke to lab, they will add test. Orders entered HEAD CRANE TECHNICIAN * Telephone Encounter - Mable Blair RN - 08/19/2022 4:39 PM OVERHEAD CRANE TECHNICIAN ----- Message from Bianka Oneill, YARED sent at 08/19/2022 3:51 PM OVERHEAD CRANE TECHNICIAN ----- Anemia, see if lab can add iron studies, ferritin, tibc HEAD CRANE TECHNICIAN documented in this encounter Plan of Treatment Upcoming Encounters Date Type Department Care Team (Late st Contact Info) Description 10/07/2024 3:00 PM OVERHEAD CRANE TECHNICIAN Office Visit [facility] - Family Medicine [facility] [address] [place] [address] Bianka Oneill, YARED [address] [place] [address] documented as of this encounter Results * (ABNORMAL) IRON W/IRON BINDING CAPACITY (01/13/2023 2:59 PM CDT) IRON 36.21(L) 37 - 145 mcg/dL 01/13/2023 3:48 PM CDT [facility] % SATURATION * 9(L) 20 - 55 % 01/13/2023 3:48 PM CDT [facility] UIBC 354(H) 112 - 346 mcg/dL 01/13/2023 3:48 PM CDT [facility] TIBC CALC 390 149 - 491 mcg/dL 01/13/2023 3:48 PM CDT [facility] Blood Venipuncture / Unknown 01/13/2023 2:59 PM CDT 01/13/2023 3:10 PM CDT us Bianka Oneill PAC CHEMISTRY ORDERABLES Fin al Result Performing Organization Address City/[facility] Co de Phone Number [facility] [address] [place] [address] * (ABNORMAL) FERRITIN (08/18/2022 9:58 AM OVERHEAD CRANE TECHNICIAN) FERRITIN 5(L) 13 - 150 ng/mL 08/19/2022 5:18 PM OVERHEAD CRANE TECHNICIAN [facility] Blood Venipuncture / Unknown 08/18/2022 9:58 AM OVERHEAD CRANE TECHNICIAN 08/19/2022 4:52 PM OVERHEAD CRANE TECHNICIAN us Bianka Oneill PAC CHEMISTRY ORDERABLES Fin al Result Performing Organization Address [facility] de Phone Number [facility] [address] [place] [address] documented in this encounter Visit Diagnoses Diagnosis Anemia, unspecified type- Primary documented in this encounter Additional Health Concerns Assessment Noted Time PHQ-9 Depression Total Score: 6 08/18/20 22 8:00 AM OVERHEAD CRANE TECHNICIAN documented as of this encounter Care Teams Miniature Train Driver Relationship Specialty Start Date End Date Bianka Oneill PAC [address] [place] [address] PCP - General Physician Lacrosse Player 08/18/22 documented as of this encounter
--- OUTSIDE RECORDS SUMMARY | 2024-09-22 20:30 | XMS_ITS | Encounter Summary ---
Author Organization [facility] Address [address] [place] [address] Phone Care Team Providers Care Card Processing Clerk Name Role Phone Bianka Oneill Primary Care Provider + Reason for Visit * Reason Onset Date Comments Results 08/19/2022 Encounter Details Date Type Department Care Team (Late st Contact Info) Description 08/19/2022 Telephone [facility] [address] [place] [address] Bianka Oneill PAC [address] [place] [address] Results Social History Tobacco Use Types Packs/Day [...] Coronavirus/COVID-19? No / Unsure 08/18/2022 8:08 AM SENIOR CONTRACTS ADMINISTRATOR documented as of this encounter Miscellaneous Notes * Telephone Encounter - Mable Blair RN - 08/19/2022 6:32 PM SENIOR CONTRACTS ADMINISTRATOR Spoke to pt's mother, gave provider's message. Entered order. OR CONTRACTS ADMINISTRATOR * Telephone Encounter - Mable Blair RN - 08/19/2022 6:27 PM SENIOR CONTRACTS ADMINISTRATOR ----- Message from YARED Sims sent at 08/19/2022 5:34 PM SENIOR CONTRACTS ADMINISTRATOR ----- Patient has iron deficiency anemia, start supplement ferrous sulfate 325 mg bid take with vitamin c Notify if causes upset stomach OR CONTRACTS ADMINISTRATOR documented in this encounter Plan of Treatment Upcoming Encounters Date Type Department Care Team (Late st Contact Info) Description 10/07/2024 3:00 PM SENIOR CONTRACTS ADMINISTRATOR Office Visit [facility] [address] [place] [address] Bianka Oneill PAC [address] [place] [address] documented as of this encounter Visit Diagnoses Diagnosis Anemia, unspecified type- Primary documented in this encounter Additional Health Concerns Assessment Noted Time PHQ-9 Depression Total Score: 6 08/18/20 8:00 AM SENIOR CONTRACTS ADMINISTRATOR documented as of this encounter Care Teams Card Processing Clerk Relationship Specialty Start Date End Date Bianka Oneill PAC [address] [place] [address] PCP - General Physician Playground Supervisor 08/18/22 documented as of this encounter
--- OUTSIDE RECORDS SUMMARY | 2024-09-22 20:30 | XMS_ITS | Encounter Summary ---
Author Organization [facility] Address [address] [place] [address] Phone Care Team Providers Care Scrap Piler Name Role Phone Bianka Oneill Primary Care Provider + Reason for Referral * Radiology Services (Routine) - Closed Specialty Diagnoses / Procedures Referred By Conttyson t Referred To Contact Radiology Diagnoses Left hip pain Procedures XR HIP 2-3 VIEWS W/PELVIS UNILATERAL LEFT Bianka Oneill PAC [address] [place] [address] Phone: tel: fax: Referral ID Status Reason Start Date Expiration Date Visits Re quested Visits Authorized [id number] Closed 08/18/2022 1 1 METER OPERATOR Reason for Visit * Reason Comments New Patient Est Care Encounter Details Date Type Department Care Team (Late st Contact Info) Description 08/18/2022 8:15 AM TAG METER OPERATOR Office Visit [facility] Medical Group - Family [facility] [address] [place] [address] Bianka Oneill PAC [address] [place] [address] Anxiety and depression (Primary Dx); History of asthma; Screening cholesterol level; Left hip pain; Chronic bilateral low back pain without sciatica Discharge Disposition: Discharged to home or Selfcare [...] Coronavirus/COVID-19? No / Unsure 08/18/2022 8:08 AM TAG METER OPERATOR documented as of this encounter Last Filed Vital Signs Vital Sign Reading Time Taken Comments Blood Pressure 116/78 08/18/2022 8:15 AM TAG METER OPERATOR Pulse 88 08/18/2022 8:15 AM TAG METER OPERATOR Temperature 36.9 ??C (98.4 ??F) 08/18/2022 8:15 AM CS T Respiratory Rate 18 08/18/2022 8:15 AM TAG METER OPERATOR Oxygen Saturation 100% 08/18/2022 8:15 AM TAG METER OPERATOR Inhaled Oxygen Concentration - - Weight 108.9 kg (240 lb) 08/18/2022 8:15 AM TAG METER OPERATOR Height 154.9 cm (5' 1 ) 08/18/2022 8:15 AM TAG METER OPERATOR Body Mass Index 45.35 08/18/2022 8:15 AM TAG METER OPERATOR Body Mass Index Percentile 99.79% 08/18/2022 8:1 5 AM TAG METER OPERATOR Growth Chart: [facility] (Girls, 2- 20 Years) documented in this encounter Functional Status * Question Answer Date of Assessment Author Little interest or pleasure in doing things Several days 08/18/2022 8:00 AM TAG METER OPERATOR Juju Maurice Feeling down, depressed, or hopeless Several days 08/18/2022 8:00 AM TAG METER OPERATOR Toni Maurice * Over the past 2 weeks, how often have you been bothered by any of the following problems? Question Answer Date of Assessment Author Patient Health Questionnaire -2 Score 2 08/18/2022 8:00 AM TAG METER OPERATOR Toni Maurice documented as of this encounter Progress Notes * Karin Maurice - 08/18/2022 8:15 AM CST Annalise Vogt, 17 y.o., female is here for New Patient ([facility]) Medication Refills: Patient reports/denies need for medication refills. Orders Pended: no Requested Prescriptions No prescriptions requested or ordered in this encounter Home Medications Medication Sig Start Date End Date Taking? Authorizing Provider ASPIRIN PO Take by mouth as needed. Patient not taking: Reported on 08/18/2022 Provider, MD Debbie There are no discontinued [...] DTaP/Tdap/Td Immunization (5 - Tdap) 2011 ??? Human Papillomavirus (HPV) Immunization (1 - 2-dose series) Never done ??? SARS-COV-2 Immunization (4 - Booster for Pfizer series) 03/29/2022 ??? 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 Can occur at rest, no radiation, no sob, no diaphoresis Has low back pain and left hip pain Back pain is frequent, no radiation down leg, no numbness/tingling or weakness Left hip pain can be very sharp for few seconds Review of Systems Constitutional: Negative for fever. Respiratory: Negative for cough, chest tightness and shortness of breath. Gastrointestinal: Negative for abdominal pain, diarrhea, nausea and vomiting. Neurological: Negative for dizziness. Psychiatric/Behavioral: Negative for suicidal ideas. The patient is nervous/anxious. Objective: Physical Exam [...] Little interest or pleasure in doing things: Several days Feeling down, depressed, or hopeless: Several days Initial Score - If the score is 2 or higher, please proceed with the additional evaluation.: 2 PHQ-9 3. Trouble falling asleep or staying asleep or sleeping too much?: 1 - Several days 4. Feeling tired or having little energy?: 1 - Several days 5. Poor appetite or overeating?: 0 - Not at all 6. Feeling bad about yourself or that you are a failure or have let yourself or your family down?: 2 - More than half the days 7. Trouble concentrating on things, such as [...] at all Total Score - Questions 1-9: 6 Assessment and Plan See Diagnoses, Orders, Follow-up, and Instructions .Diagnoses and all orders for this visit: Anxiety and depression - CMP (COMPREHENSIVE METABOLIC PANEL); Future - THYROID STIMULATING HORMONE (TSH); Future - COMPLETE BLOOD COUNT (CBC) WITH DIFF; Future History of asthma Screening cholesterol level - LIPID PANEL; Future Left hip pain - XR HIP 2-3 VIEWS W/PELVIS UNILATERAL LEFT; Future Chronic bilateral low back pain without sciatica Other orders - escitalopram (LEXAPRO) 10 MG Tablet; Take 1 Tablet by mouth daily. - albuterol 108 (90 Base) MCG/ACT Aerosol Solution; 2 puffs inhaled every 4-6 hours as needed for shortness of breath - naproxen (NAPROSYN) 500 MG Tablet; Take 1 Tablet by mouth 2 times daily (with meals). Labs as ordered rule out any deficiency or thyroid dysfunction Use albuterol if needed for pain in chest, unclear etiology Start lexapro discussed counseling, declines at this time X ray left hip rule out impingement Discussed chronic back pain likely due to work activities, lifting, can use naproxen as needed for pain, consider PT Discussed medications and possible SE, notify if any problems If any suicidal thoughts stop medication, if plan go to ER METER OPERATOR documented in this encounter Plan of Treatment Upcoming Encounters Date Type Department Care Team (Late st Contact Info) Description 10/07/2024 3:00 PM TAG METER OPERATOR Office Visit [facility] Medical Group - Family Medicine [facility] [address] [place] [address] Bianka Oneill PAC [address] [place] [address] documented as of this encounter Results * XR HIP 2-3 VIEWS W/PELVIS UNILATERAL LEFT (08/18/2022 10:25 AM TAG METER OPERATOR) Anatomical Region Laterality Modality LOWER EXTREMITY, hip, Pelvis Left Dig ital Radiography 08/19/2022 9:16 AM TAG METER OPERATOR Impressions 08/19/2022 9:19 AM TAG METER OPERATOR IMPRESSION: Deficient left femoral head neck junction offset which can be associated with femoroacetabular impingement. Narrative 08/19/2022 9:19 AM TAG METER OPERATOR EXAM DESCRIPTION: XR HIP 2-3 VIEWS W/PELVIS UNILATERAL LEFT REASON FOR STUDY: Pain in left hip ?? TECHNIQUE: Three views submitted without comparison. FINDINGS: There are no fractures. ??There is deficient left femoral head neck junction offset. ??There is likely deficient right femoral head neck junction offset. ??The joint space heights are preserved. THIS IS AN ELECTRONICALLY VERIFIED FINAL REPORT 08/19/2022 9:16 AM - Electronically signed by ??Mikie Kaminski M.D. MF: [email or web address] D: ??08/19/2022 9:16 AM T: ??08/19/2022 9:16 AM Report ID: [id number] Reading Location: ??[id number] Procedure Note Mikie Kaminski MD - 08/19/2022 EXAM DESCRIPTION: XR HIP 2-3 VIEWS W/PELVIS UNILATERAL LEFT REASON FOR STUDY: Pain in left hip TECHNIQUE: Three views submitted without comparison. FINDINGS: There are no fractures. There is deficient left femoral head neck junction offset. There is likely deficient right femoral head neck junction offset. The joint space heights are preserved. THIS IS AN ELECTRONICALLY VERIFIED FINAL REPORT 08/19/2022 9:16 AM - Electronically signed by Mikie Kaminski M.D. MF: CULLEN Report ID: [id number] Reading Location: [id number] IMPRESSION: Deficient left femoral head neck junction offset which can be associated with femoroacetabular impingement. Bianka Oneill PAC IMG DIAGNOSTIC ORDERABLE S Final Result * (ABNORMAL) LIPID PANEL (08/18/2022 9:58 AM TAG METER OPERATOR) CHOLESTEROL 171 <=200 mg/dL 08/18/2022 11:52 AM TAG METER OPERATOR [facility] TRIGLYCERIDES 88 <150 mg/dL 08/18/2022 11:52 AM TAG METER OPERATOR [facility] HDL CHOLESTEROL 34.0(L) >40 mg/dL 11:52 AM TAG METER OPERATOR [facility] LDL 119 5 - 130 mg/dL 08/18/2022 11:52 AM TAG METER OPERATOR [facility] VLDL 18 5 - 55 mg/dL 08/18/2022 11:52 AM TAG METER OPERATOR [facility] CHOL/HDL RATIO 5.0(H) 0.0 - 4.4 08/18/2022 11:52 AM TAG METER OPERATOR [facility] NON-HDL CHOLESTEROL 137(H) <130 mg/dL 08/18/2022 11:[address] [facility] IS THE PATIENT REQUIRED TO BE FASTING? Yes 08/18/2022 11:[address] [facility] HAS THE PATIENT BEEN FASTING? Yes 08/18/2022 11:52 AM TAG METER OPERATOR [facility] Blood Venipuncture / Unknown 08/18/2022 9:58 AM TAG METER OPERATOR 08/18/2022 11:02 AM TAG METER OPERATOR Bianka Oneill PAC CHEMISTRY ORDERABLES Fin al Result [facility] [address] [place] [address] * THYROID STIMULATING HORMONE (TSH) (08/18/2022 9:58 AM TAG METER OPERATOR) TSH 2.990 0.270 - 4.200 mIU/L 08/18/2022 11:52 AM TAG METER OPERATOR [facility] Blood Venipuncture / Unknown 08/18/2022 9:58 AM TAG METER OPERATOR 08/18/2022 11:02 AM TAG METER OPERATOR us Bianka Oneill PAC CHEMISTRY ORDERABLES Fin al Result [facility] [address] [place] [address] * (ABNORMAL) CMP (COMPREHENSIVE METABOLIC PANEL) (08/18/2022 9:58 AM TAG METER OPERATOR) SODIUM 140 136 - 144 mmol/L 08/18/2022 11:[address] [facility] POTASSIUM 4.2 3.5 - 5.1 mmol/L 08/18/2022 11:[address] [facility] CHLORIDE 106 100 - 110 mmol/L 08/18/2022 11:[address] [facility] CO2, VENOUS 24 22 - 32 mmol/L 08/18/2022 11:[address] [facility] ANION GAP 14.2 8.0 - 20.0 mmol/L 08/18/2022 11:[address] [facility] GLUCOSE 90 70 - 99 mg/dL 08/18/2022 11:[address] [facility] BUN 7 6 - 20 mg/dL 08/18/2022 11:[address] [facility] CREATININE, BLOOD 0.55 0.40 - 1.00 mg/dL 08/18/2022 11:[address] [facility] BUN/CREATININE RATIO 13 12 - 20 ratio 08/18/2022 11:[address] [facility] TOTAL PROTEIN 7.5 6.0 - 8.3 g/dL 08/18/2022 11:[address] [facility] ALBUMIN 4.6 3.5 - 5.2 g/dL 08/18/2022 11:[address] [facility] A/G RATIO 1.6 1.0 - 2.0 08/18/2022 11:[address] [facility] CALCIUM 10.2 8.9 - 10.3 mg/dL 08/18/2022 11:[address] [facility] T BILI <0.3 <=1.2 mg/dL 08/18/2022 11:[address] [facility] SGOT (AST) 16 <=32 U/L 08/18/2022 11:52 AM TAG METER OPERATOR [facility] SGPT (ALT) 15 <=41 U/L 08/18/2022 11:52 AM TAG METER OPERATOR [facility] ALKALINE PHOSPHATASE 106(H) 45 - 87 U/L 08/18/2022 11:52 AM TAG METER OPERATOR [facility] IS THE PATIENT REQUIRED TO BE FASTING? No 08/18/2022 11:52 AM TAG METER OPERATOR [facility] GFR, ESTIMATED >60 >=60 08/18/2022 11:52 AM TAG METER OPERATOR [facility] Comment: Creatinine Clearance is the preferred criteria for selecting drug dose adjustments in renally impaired patients. ??The GFR is provided as additional pertinent clinical information. GFR is reported in mL/min/1.73 sq m. Calculation based on the Chronic Kidney Disease Epidemiology Collaboration (CKD- EPI) equation refit without adjustment for race. UNABLE TO CALCULATE GFR, EST. 022 11:52 AM TAG METER OPERATOR [facility] GFR, EST. NONAFRICAN 08/18/2022 11:52 AM TAG METER OPERATOR [facility] Blood Venipuncture / Unknown 08/18/2022 9:58 AM TAG METER OPERATOR 08/18/2022 11:02 AM TAG METER OPERATOR us Bianka Oneill PAC CHEMISTRY ORDERABLES Fin al Result [facility] [address] [place] [address] documented in this encounter Visit Diagnoses Diagnosis Anxiety and depression- Primary Dysthymic disorder History of asthma Personal history of other diseases of respiratory system Screening cholesterol level Screening for lipoid disorders Left hip pain Pain in joint, pelvic region and thigh Chronic bilateral low back pain without sciatica Left hip pain Pain in joint, pelvic region and thigh documented in this encounter Additional Health Concerns Assessment Noted Time PHQ-9 Depression Total Score: 6 08/18/20 22 8:00 AM TAG METER OPERATOR documented as of this encounter Care Teams Scrap Piler Relationship Specialty Start Date End Date Bianka Oneill PAC [address] [place] [address] PCP - General Physician Photo Finish Photographer 08/18/22 documented as of this encounter
--- OUTSIDE RECORDS SUMMARY | 2024-09-22 20:30 | XMS_ITS | Encounter Summary ---
Author Organization [facility] Address [address] [place] [address] Phone Care Team Providers Care Customer Data Technician Name Role Phone Bianka Oniell Primary Care Provider + Reason for Visit * Reason Comments Ear Fullness She went to urgent c are on Monday and was diagnosed with double ear infection, she has been taking amoxicillin and doesn't feel it is getting better. Encounter Details Date Type Department Care Team (Late st Contact Info) Description 10/21/2022 10:45 AM DRUGLESS DOCTOR Office Visit [facility] Medical Group - Family [facility] [address] [place] [address] Bianka Oneill, PAC [address] [place] [address] Sinusitis, unspecified chronicity, unspecified location (Primary Dx); Frequent stools Discharge Disposition: Discharged to home or Selfcare Social History Tobacco Use Types Packs/Day Years Used Date Smoking Tobacco: Never Smokeless Tobacco: Never Tobacco Cessation:Counseling Given: Yes Alcohol Use Standard Drinks/Week Comments Never 0 (1 standard drink = 0.6 oz pur e alcohol) PHQ-2 Answer Date Recorded Total Score - Questions 1-9 6 /09/2021 Sexually Active Control Partners Comments Not Currently [...] Coronavirus/COVID-19? No / Unsure 10/29/2022 10:54 AM DRUGLESS DOCTOR documented as of this encounter Last Filed Vital Signs Vital Sign Reading Time Taken Comments Blood Pressure 122/74 10/21/2022 10:39 AM DRUGLESS DOCTOR Pulse 86 10/21/2022 10:39 AM DRUGLESS DOCTOR Temperature 36.2 ??C (97.1 ??F) 10/21/2022 1 0:39 AM DRUGLESS DOCTOR Respiratory Rate 14 10/21/2022 10:3 9 AM DRUGLESS DOCTOR Oxygen Saturation 100% 10/21/2022 10: 39 AM DRUGLESS DOCTOR Inhaled Oxygen Concentration - - Weight 107.5 kg (237 lb 1.6 oz) 023 10:39 AM DRUGLESS DOCTOR Height 160 cm (5' 3 ) 10/21/2022 10:39 AM DRUGLESS DOCTOR Body Mass Index 42 10/21/2022 10:39 AM DRUGLESS DOCTOR Body Mass Index Percentile 99.38% 10/21 10:39 AM DRUGLESS DOCTOR Growth Chart: [facility] (Girls, 2- 20 Years) documented in this encounter Progress Notes * Felisa Kurtz - 10/21/2022 10:45 AM CST Annalise Vogt, 17 y.o., female is here for Ear Fullness (She went to urgent care on Monday and was diagnosed with double ear infection, she has been taking amoxicillin and doesn't feel it is getting better.) Medication Refills: Patient reports/denies need for medication refills. Orders Pended: no Requested Prescriptions No prescriptions requested or ordered in this encounter Home Medications Medication Sig Start Date End Date Taking? Authorizing Provider amoxicillin (AMOXIL) 500 MG Capsule TAKE 1 CAPSULE BY MOUTH TWICE A DAY FOR 10 DAYS 10/16/22 Yes Debbie Khan MD celecoxib (CeleBREX) 200 MG Capsule Take 1 Capsule by mouth 2 times daily. 09/30/22 Yes Bianka Oneill PAC Docusate Calcium (STOOL SOFTENER PO) Take by mouth. Yes ProviderDebbie MD escitalopram (LEXAPRO) 10 MG Tablet Take [...] Risk, Nutrition, Advanced Care Planning and HCC LESS DOCTOR * Bianka Oneill PAC - 10/21/2022 10:45 AM CST Subjective: Patient in the office today for urgent care follow up, was seen on 10/16/22 and dx with bilateral ear infection Still feels pressure in ears, taking amoxil Has noticed loose stools with antibiotic Review of Systems Constitutional: Negative for chills and fever. HENT: Positive for congestion and ear pain. Respiratory: Negative for shortness of breath. Cardiovascular: Negative for chest pain. Gastrointestinal: Positive for diarrhea. Objective: Physical Exam Vitals reviewed. Constitutional: Appearance: Normal appearance. She is not ill-appearing. HENT: Head: Atraumatic. Right Ear: Tympanic membrane normal. Left Ear: Tympanic membrane normal. Nose: Congestion present. Cardiovascular: Rate and Rhythm: Normal rate and regular rhythm. Heart sounds: No murmur heard. Pulmonary: Effort: Pulmonary effort is normal. No respiratory distress. Breath sounds: Normal breath sounds. No wheezing. Abdominal: General: Bowel sounds are normal. There is no distension. Palpations: Abdomen is soft. Neurological: Mental Status: She is alert. Psychiatric: Mood and Affect: Mood normal. Assessment and Plan See Diagnoses, Orders, Follow-up, and Instructions .Diagnoses and all orders for this visit: Sinusitis, unspecified chronicity, unspecified location Frequent stools Other orders - amoxicillin (AMOXIL) 500 MG Capsule; TAKE 1 CAPSULE BY MOUTH TWICE A DAY FOR 10 DAYS - predniSONE (DELTASONE) 10 MG Tablet; Take 2 pills orally twice daily for 5 days, then 1 pill twice daily for 5 days, then 1 pill daily for 5 days - dicyclomine (BENTYL) 20 MG Tablet; Take 1 Tablet by mouth every 6 hours as needed (abdominal cramping). Patient to finish antibiotic, discussed ears were without erythema Can use bentyl as needed for abdominal cramping/diarrhea Notify if symptoms do not improve Recommend steroid nasal spray, can use taper dose of prednisone to help with inflammation and sinuspressure LESS DOCTOR documented in this encounter Plan of Treatment Upcoming Encounters Date Type Department Care Team (Late st Contact Info) Description 10/07/2024 3:00 PM DRUGLESS DOCTOR Office Visit [facility] Medical [facility] - Family [facility] [address] [place] [address] Bianka Oneill PAC [address] [place] [address] documented as of this encounter Visit Diagnoses Diagnosis Sinusitis, unspecified chronicity, unspecified location- Primary Frequent stools Diarrhea documented in this encounter Additional Health Concerns Assessment Noted Time PHQ-9 Depression Total Score: 6 08/18/20 22 8:00 AM DRUGLESS DOCTOR documented as of this encounter Care Teams Customer Data Technician Relationship Specialty Start Date End Date Bianka Oneill PAC [address] [place] [address] PCP - General Physician Floor Helper 08/18/22 documented as of this encounter
--- OUTSIDE RECORDS SUMMARY | 2024-09-22 20:30 | XMS_ITS | Encounter Summary ---
Author Organization [employer] Care Team Providers Care Entry Level Account Manager Name Role Phone Bianka Oneill YARED Primary Care Provider + Encounter Details Date Type Department Care Team (Latest Contact Info) Description 08/18/2022 Travel Social History Tobacco Use Types Packs/Day [...] Coronavirus/COVID-19? No / Unsure 08/18/2022 8:08 AM FINISH REPAIRER documented as of this encounter Functional Status * Question Answer Date of Assessment Author Little interest or pleasure in doing things Several days 08/18/2022 8:00 AM Juju Au Feeling down, depressed, or hopeless Several days 08/18/2022 8:00 AM Toni Au * Over the past 2 weeks, how often have you been bothered by any of the following problems? Question Answer Date of Assessment Author Patient Health Questionnaire -2 Score 2 08/18/2022 8:00 AM FINISH REPAIRER Toni Maurice documented as of this encounter Plan of Treatment Upcoming Encounters Date Type Department Care Team (Late st Contact Info) Description 10/07/2024 3:00 PM FINISH REPAIRER Office Visit [facility] Medical [facility] - Family Medicine [facility] [address] [place] [address] Bianka Oneill PAC [address] [place] [address] documented as of this encounter Visit Diagnoses Not on filedocumented in this encounter Additional Health Concerns Assessment Noted Time PHQ-9 Depression Total Score: 6 08/18/20 8:00 AM FINISH REPAIRER documented as of this encounter Care Teams Entry Level Account Manager Relationship Specialty Start Date End Date Bianka Oneill PAC [address] [place] [address] PCP - General Physician Mobile Plant Operators 08/18/22 documented as of this encounter
--- OUTSIDE RECORDS SUMMARY | 2024-09-22 20:30 | XMS_ITS | Encounter Summary ---
Author Organization [employer] Care Team Providers Care Transit Vehicle Inspector Name Role Phone Bianka Oneill Primary Care Provider + Encounter Details Date Type Department Care Team (Latest Contact Info) Description 09/30/2022 Travel Social History Tobacco Use Types Packs/Day [...] Coronavirus/COVID-19? No / Unsure 09/30/2022 3:30 PM RAILWAY SWITCH OPERATOR documented as of this encounter Functional Status * Question Answer Date of Assessment Author Little interest or pleasure in doing things Not at all 09/30/2022 4:00 PM Bianka Bucio Ma, PAC Feeling down, depressed, or hopeless Not at all 09/30/2022 4:00 PM Bianka Bucio Ma, PAC * Over the past 2 weeks, how often have you been bothered by any of the following problems? Question Answer Date of Assessment Author Patient Health Questionnaire-2 Score 0 09/30/2022 4:00 PM RAILWAY SWITCH OPERATOR Bianka Oneill PAC documented as of this encounter Plan of Treatment Upcoming Encounters Date Type Department Care Team (Late st Contact Info) Description 10/07/2024 3:00 PM RAILWAY SWITCH OPERATOR Office Visit [facility] Medical [facility] - [facility] [address] [place] [address] Bianka Oneill PAC [address] [place] [address] documented as of this encounter Visit Diagnoses Not on filedocumented in this encounter Additional Health Concerns Assessment Noted Time PHQ-9 Depression Total Score: 6 08/18/20 8:00 AM RAILWAY SWITCH OPERATOR documented as of this encounter Care Teams Transit Vehicle Inspector Relationship Specialty Start Date End Date Bianka Oneill PAC [address] [place] [address] PCP - General Physician Computer Scientist 08/18/22 documented as of this encounter
--- OUTSIDE RECORDS SUMMARY | 2024-09-22 20:30 | XMS_ITS | Encounter Summary ---
Author Organization [facility] Address [address] [place] [address] Phone Care Team Providers Care Hostess Host Name Role Phone Bianka Oneill PAC Primary Care Provider + Reason for Visit * Reason Comments Vaginal Bleeding () Encounter Details Date Type Department Care Team (Late st Contact Info) Description 10/29/2022 10:57 AM [facility] - 10/29/2022 1:05 PM [facility] Emergency [facility] Emergency [address] [place] [id number] Virgen Harvey, PAC [address] [place] [address] Hypokalemia Discharge Disposition: Discharged to home or Selfcare [...] Coronavirus/COVID-19? No / Unsure 10/29/2022 10:54 AM [facility] documented as of this encounter Last Filed Vital Signs Vital Sign Reading Time Taken Comments Blood Pressure 151/91 10/29/2022 10:54 AM [facility] Pulse 82 10/29/2022 1:03 PM [facility] Temperature 36.4 ??C (97.5 ??F) 10/29/2022 10:[address] Respiratory Rate 18 10/29/2022 1:03 PM [facility] Oxygen Saturation 100% 10/29/2022 1:03 PM [facility] Inhaled Oxygen Concentration - - Weight 99.8 kg (220 lb) 10/29/2022 10:54 AM [facility] Height 160 cm (5' 3 ) 10/29/2022 10:54 AM [facility] Body Mass Index 38.97 10/29/2022 10:54 AM [facility] Body Mass Index Percentile 98.69% 10/29/2022 10: 54 AM [facility] Growth Chart: [facility] (Girls, 2- 20 Years) documented in this encounter Discharge Instructions * Discharge Instructions* Virgen Harvey PAC - 10/29/2022 12:44 PM [facility] Please follow up with your obgyn. Return for reevaluation if your symptoms change or worsen. [facility] * Attachments The following attachments cannot be sent through Care Everywhere. * Hypokalemia (Ethiopian) documented in this encounter Medications at Time of Discharge Docusate Calcium (STOOL SOFTENER PO) Take by mouth. amoxicillin (AMOXIL) 500 MG Capsule TAKE 1 CAPSULE BY MOUTH TWICE A DAY FOR 10 DAYS 10/16/2022 11/29/2022 celecoxib (CeleBREX) 200 MG Capsule Take 1 Capsule by mouth 2 times daily. 60 Capsule 09/30/2022 11/24/2022 dicyclomine (BENTYL) 20 MG Tablet Take 1 Tablet by mouth every 6 hours as needed (abdominal cramping). 30 Tablet 10/21/2022 11/29/2022 escitalopram (LEXAPRO) 10 MG Tablet Take 1 Tablet by mouth daily. 90 Tablet 1 09/30/2022 01/13/2023 ferrous sulfate 325 (65 Fe) MG TabletIndications :Anemia, unspecified type Take 1 Tablet by mouth 2 times daily. 60 Tablet 3 08/19/2022 02/26/2023 predniSONE (DELTASONE) 10 MG Tablet Take 2 pills orally twice daily for 5 days, then 1 pill twice daily for 5 days, then 1 pill daily for 5 days 35 Tablet 10/21/2022 11/05/2022 documented as of this encounter ED Notes * Osiris Rodriguez RN - 10/29/2022 1:03 PM CST Patient discharged. Discharge instructions and patient educational material reviewed with patient; questions and concerns addressed; patient verbalizes understanding, using teach back. Patient was given 0 prescriptions. Patient discharged ambulatory with steady gait to exit with no distress noted. SL D/C'ed with Ildefonso cath intact. [facility] * Virgen Harvey PAC - 10/29/2022 12:45 PM CST Chief Complaint Patient presents with ??? Vaginal Bleeding () MEGHAN Vogt is a 17 y.o. female who presents due to vaginal bleeding. She states she took several positive testes at home on 10/19/22 and yesterday she started experiencing vaginal spotting which has increased over night. She states the amount of bleeding is similar to a heavy menstrual flow and she has associated lower abdominal cramping. She states her LMP was 11/09/21. She has not yet seen an obgyn. This is her first . PMH includes iron deficiency anemia. No current facility-administered medications for this encounter. Current Outpatient Medications Medication Sig Dispense Refill ??? amoxicillin (AMOXIL) 500 MG Capsule TAKE 1 CAPSULE BY MOUTH TWICE A DAY FOR 10 DAYS ??? celecoxib (CeleBREX) 200 MG Capsule Take 1 Capsule by mouth 2 times daily. 60 Capsule 0 ??? dicyclomine (BENTYL) 20 MG Tablet Take 1 Tablet by mouth every 6 hours as needed (abdominal cramping). 30 Tablet 0 ??? Docusate Calcium (STOOL SOFTENER PO) Take by mouth. ??? escitalopram (LEXAPRO) 10 MG Tablet Take 1 Tablet by mouth daily. 90 Tablet 1 ??? ferrous sulfate 325 (65 Fe) MG Tablet Take 1 Tablet by mouth 2 times daily. 60 Tablet 3 ??? predniSONE (DELTASONE) 10 MG Tablet Take 2 pills orally twice daily for 5 days, then 1 pill twice daily for 5 days, then 1 pill daily for 5 days 35 Tablet 0 No Known Allergies Past Medical History Positives Diagnosis Date ??? Anxiety ??? Asthma ??? History of anemia as a child Past Surgical History: Procedure Laterality Date ??? NO PREVIOUS SURGERY Social History Socioeconomic History ??? Marital status: Single Spouse name: Not on file ??? Number of children: Not on file ??? Years of education: Not on file ??? Highest education level: Not on file Occupational History ??? Not on file Tobacco Use ??? Smoking status: Never ??? Smokeless tobacco: Never Vaping Use ??? Vaping Use: Every day Substance and Sexual Activity ??? Alcohol use: Never ??? Drug use: Never ??? Sexual activity: Not Currently Partners: Male control/protection: Implant Other Topics Concern ??? Not on file Social History Narrative ??? Not on file BP (!) 151/91 Pulse 98 Temp 97.5 ??F (36.4 ??C) (Tympanic) Resp 20 Ht 5' 3 (1.6 m) Wt (!) 220 lb (99.8 kg) LMP 09/08/2022 (Exact Date) SpO2 100% BMI 38.97 kg/m?? Review of Systems Constitutional: Negative for chills and fever. HENT: Negative for congestion, ear pain, rhinorrhea and sore throat. Eyes: Negative for discharge. Respiratory: Negative for cough, chest tightness, shortness of breath and wheezing. Cardiovascular: Negative for chest pain and palpitations. Gastrointestinal: Negative for abdominal pain, diarrhea, nausea and vomiting. Abdominal cramping Genitourinary: Positive for vaginal bleeding. Negative for difficulty urinating and menstrual problem. Musculoskeletal: Negative for arthralgias and myalgias. Skin: Negative for rash and wound. Neurological: Negative for dizziness, syncope and headaches. All other systems reviewed and are negative. Physical Exam Vitals and nursing note reviewed. Constitutional: General: She is not in acute distress. Appearance: She is well-developed. She is not diaphoretic. HENT: Head: Normocephalic and atraumatic. Right Ear: External ear normal. Left Ear: External ear normal. Eyes: Conjunctiva/sclera: Conjunctivae normal. Pupils: Pupils are equal, round, and reactive to light. Neck: Trachea: No tracheal deviation. Cardiovascular: Rate and Rhythm: Normal rate and regular rhythm. Heart sounds: Normal heart sounds. No murmur heard. Pulmonary: Effort: Pulmonary effort is normal. No respiratory distress. Breath sounds: Normal breath sounds. No wheezing or rales. Abdominal: General: Bowel sounds are normal. There is no distension. Palpations: Abdomen is soft. Tenderness: There is abdominal tenderness (suprapubic ). There is no guarding or rebound. Musculoskeletal: General: Normal range of motion. Cervical back: Normal range of motion. Skin: General: Skin is warm and dry. Neurological: Mental Status: She is alert and oriented to person, place, and time. Cranial Nerves: No cranial nerve deficit. Labs Reviewed CMP (COMPREHENSIVE METABOLIC PANEL) - Abnormal; Notable for the following components: Result Value POTASSIUM 3.2 (*) ALKALINE PHOSPHATASE 88 (*) All other components within normal limits URINALYSIS REFLEX IF INDICATED BY ABNORMAL RESULTS - Abnormal; Notable for the following components: WBC ESTERASE 25 /ul (*) PROTEIN, RANDOM URINE 500 mg/dL (*) URINE KETONES 5 mg/dL (*) URINE BLOOD 250 /uL (*) URINE RBC'S Packed (*) BACTERIA, URINE Few (*) All other components within normal limits CBC WITH AUTO DIFFERENTIAL - Abnormal; Notable for the following components: RBC 5.32 (*) HEMOGLOBIN (HGB) 11.3 (*) MCV 71.4 (*) MCH 21.2 (*) MCHC 29.7 (*) RDW 22.5 (*) ABSOLUTE LYMPHOCYTES 3.60 (*) All other components within normal limits Narrative: Anisocytosis, microcytosis, hypochromia HCG BETA SUBUNIT SERUM QUANT - Normal Narrative: HCG Interpretive Reference Ranges Wks of : References Ranges 4 wks [id number] 5 wks [phone] 6 wks [id number] 7 wks [id number] 8 wks [id number] 9 wks [id number] 10 wks [id number] 14 wks [id number] 15 wks [id number] 16 wks [id number] 17 wks [id number] 18 wks [id number] 19 wks [id number] Non- Female: 0-4 CULTURE, URINE COMPLETE BLOOD COUNT (CBC) WITH DIFF Narrative: The following orders were created for panel order CBC with Diff [id number]. Procedure Abnormality Status --------- ------ CBC with Auto Differential[[id number]] Abnormal Final result Please view results for these tests on the individual orders. TYPE & SCREEN (CROSSMATCH CONVERTIBLE) CMP (Comprehensive Metabolic Panel) Final Result CBC with Diff [id number] Final Result HCG Beta Subunit Serum Quant Final Result URINALYSIS REFLEX IF INDICATED BY ABNORMAL RESULTS Final Result Procedures Imaging Results None Labs Reviewed CMP (COMPREHENSIVE METABOLIC PANEL) - Abnormal; Notable for the following components: Result Value POTASSIUM 3.2 (*) ALKALINE PHOSPHATASE 88 (*) All other components within normal limits URINALYSIS REFLEX IF INDICATED BY ABNORMAL RESULTS - Abnormal; Notable for the following components: WBC ESTERASE 25 /ul (*) PROTEIN, RANDOM URINE 500 mg/dL (*) URINE KETONES 5 mg/dL (*) URINE BLOOD 250 /uL (*) URINE RBC'S Packed (*) BACTERIA, URINE Few (*) All other components within normal limits CBC WITH AUTO DIFFERENTIAL - Abnormal; Notable for the following components: RBC 5.32 (*) HEMOGLOBIN (HGB) 11.3 (*) MCV 71.4 (*) MCH 21.2 (*) MCHC 29.7 (*) RDW 22.5 (*) ABSOLUTE LYMPHOCYTES 3.60 (*) All other components within normal limits Narrative: Anisocytosis, microcytosis, hypochromia HCG BETA SUBUNIT SERUM QUANT - Normal Narrative: HCG Interpretive Reference Ranges Wks of : References Ranges 4 wks [id number] 5 wks [phone] 6 wks [id number] 7 wks [id number] 8 wks [id number] 9 wks [id number] 10 wks [id number] 14 wks [id number] 15 wks [id number] 16 wks [id number] 17 wks [id number] 18 wks [phone] 19 wks [id number] Non- Female: 0-4 CULTURE, URINE COMPLETE BLOOD COUNT (CBC) WITH DIFF Narrative: The following orders were created for panel order CBC with Diff [id number]. Procedure Abnormality Status --------- ------ CBC with Auto Differential[[id number]] Abnormal Final result Please view results for these tests on the individual orders. TYPE & SCREEN (CROSSMATCH CONVERTIBLE) MDM Coding Clinical Impression 1. Irregular menstrual bleeding 2. Hypokalemia Patient was informed that our test was negative today. Advised following up wit her obgynto further discuss and to return for reevaluation if sx change or worsen. Cosigned by Caridad Abdul MD at 10/29/2022 5:44 PM [facility] * Osiris oRdriguez RN - 10/29/2022 12:24 PM CST Pt medicated per provider orders. Pt educated on intended effects and side effects of medication and verbalized understanding, able to provide teach back of education. [facility] * Osiris Rodriguez RN - 10/29/2022 11:22 AM CST Patient is resting in room with call light at bedside. Patient informed about wait time and verbalizes understanding. Patient denies needs at this time and verbalizes understanding that RN will complete hourly rounding. [facility] * Osiris Rodriguez RN - 10/29/2022 11:21 AM CST Virgen Harvey at bedside [facility] * Allyson Turner RN - 10/29/2022 10:52 AM CST Patient to triage with c/o vaginal bleeding while . States she took four tests on10/19, all positive, and yesterday she began spotting. States today she began bleeding heavily with clots. Estimates saturating 1 pad per hour. [facility] documented in this encounter Plan of Treatment Upcoming Encounters Date Type Department Care Team (Late st Contact Info) Description 10/07/2024 3:00 PM [facility] Office Visit [facility] [address] [place] [address] Bianka Oneill, PAC [address] [place] [address] documented as of this encounter Procedures Procedure Name Priority Date/Time Associated Diagnosis Comments URINALYSIS REFLEX IF INDICATED BY ABNORMAL RESULTS STAT 10/29/2022 11:10 AM [facility] CBC WITH AUTO DIFFERENTIAL STAT 10/29/2022 11:10 AM [facility] TYPE & SCREEN (CROSSMATCH CONVERTIBLE) STAT 10/29/2022 11:10 AM [facility] HCG BETA SUBUNIT SERUM QUANT STAT 10/29/2022 11:10 AM [facility] CULTURE, URINE STAT 10/29/2022 11:10 AM [facility] CMP (COMPREHENSIVE METABOLIC PANEL) STAT 10/29/2022 11:10 AM [facility] COMPLETE BLOOD COUNT (CBC) WITH DIFF STAT 10/29/2022 11:10 AM [facility] documented in this encounter Results * Culture, Urine (10/29/2022 11:10 AM [facility]) CULTURE RESULTS MIXED GROWTH OF 3 OR MORE ORGANISMS, PROBABLE COLLECTION CONTAMINATION, SUGGEST REPEAT URINE CULTURE. 10/30/2022 7:34 PM [facility] Urine URINE SPECIMEN COLLECTION, CLEAN CATCH / Unknown Non-Phlebotomy Collection / Unknown 10/29/2022 11:10 AM [facility] 10/29/2022 11:30 AM [facility] us Virgen Mclaughlin Page PAC MICROBIOLOGY - GENERAL ORDER BETTY Final Result [facility] [address] [place] [address], [place] * (ABNORMAL) CBC with Auto Differential (10/29/2022 11:10 AM [facility]) WBC 10.61 4.00 - 12.00 10(3)/[facility] 10/29/2022 12:12 PM [facility] RBC 5.32(H) 3.80 - 5.30 10(6)/[facility] 10/29/2022 12:12 PM [facility] HEMOGLOBIN (HGB) 11.3(L) 12.0 - 15.8 g/dL 10/29/2022 12:12 PM [facility] HEMATOCRIT (HCT) 38.0 36.0 - 47.0 % 10/29/2022 12:12 PM [facility] MCV 71.4(L) 82.0 - 96.0 fL 10/29/2022 12:12 PM [facility] MCH 21.2(L) 26.0 - 34.0 pg 10/29/2022 12:12 PM [facility] MCHC 29.7(L) 31.0 - 36.0 g/dL 10/29/2022 12:12 PM [facility] PLATELET COUNT 300 140 - 440 10(3)/[facility] 10/29/2022 12:12 PM [facility] RDW 22.5(H) 11.8 - 15.5 % 10/29/2022 12:12 PM [facility] MPV 10.3 9.7 - 12.4 fL 10/29/2022 12:12 PM [facility] NEUTROPHILS 58.3 47.0 - 73.0 % 10/29/2022 12:12 PM [facility] LYMPHOCYTES 33.9 18.0 - 42.0 % 10/29/2022 12:12 PM [facility] MONOCYTES 6.1 4.0 - 12.0 % 10/29/2022 12:12 PM [facility] EOSINOPHILS 1.0 0.0 - 5.0 % 10/29/2022 12:12 PM [facility] BASOPHILS 0.7 0.0 - 1.0 % 10/29/2022 12:12 PM [facility] ABSOLUTE NEUTROPHILS 6.18 1.60 - 7.70 10(3)/[facility] 10/29/2022 12:12 PM [facility] ABSOLUTE LYMPHOCYTES 3.60(H) 1.30 - 3.20 10(3)/[facility] 10/29/2022 12:12 PM [facility] ABSOLUTE MONOCYTES 0.65 0.20 - 1.00 10(3)/[facility] 10/29/2022 12:12 PM [facility] ABSOLUTE EOSINOPHIL 0.11 0.00 - 0.40 10(3)/[facility] 10/29/2022 12:12 PM [facility] ABSOLUTE BASOPHILS 0.07 0.00 - 0.10 10(3)/[facility] 10/29/2022 12:12 PM [facility] NRBC PER 100 WBC 0 10/29/19 23 12:12 PM [facility] RESULTS ARE CONSISTENT WITH PERIPHERAL SMEAR REVIEW Yes 10/29/2022 12:12 PM [facility] POIKILOCYTOSIS 1+ 10/29/2022 12:12 PM [facility] TARGET Present 10/29/2022 12:12 PM [facility] ELLIPTOCYTES Present 10/29/2022 12:12 PM [facility] Blood Venipuncture / Unknown 10/29/2022 11:10 AM [facility] 10/29/2022 11:31 AM [facility] Narrative [facility] - 10/29/2022 12:12 PM [facility] Anisocytosis, microcytosis, hypochromia Virgen Lissette Page PAC HEMATOLOGY ORDERABLES Final Result [facility] [address] [place] [address] * (ABNORMAL) URINALYSIS REFLEX IF INDICATED BY ABNORMAL RESULTS (10/29/2022 11:10 AM [facility]) SPECIFIC GRAVITY 1.025 1.003 - 1.030 10/29/2022 12:09 PM [facility] URINE PH 5.0 5.0 - 9.0 10/29/2022 12:09 PM [facility] WBC ESTERASE 25 /ul(A) Negative 10/29/2022 12:09 PM [facility] NITRITE Negative Negative 10/29/2022 12:09 PM [facility] PROTEIN, RANDOM URINE 500 mg/dL(A) Negative 10/29/2022 12:09 PM [facility] URINE GLUCOSE, QUAL Negative Negative 10/29/2022 12:09 PM [facility] URINE KETONES 5 mg/dL(A) Negative 10/29/2022 12:09 PM [facility] UROBILINOGEN Normal Normal mg/dL 10/29/2022 12:09 PM [facility] URINE BLOOD 250 /uL(A) Negative carter/ul 10/29/2022 12:09 PM [facility] URINALYSIS COLOR Red 10/29/19 12:09 PM [facility] URINALYSIS CLARITY Bloody 10/29/2022 12:09 PM [facility] WBC (Urine) 0-5 Negative, 0-5 /hpf 10/29/2022 12:09 PM [facility] URINE RBC'S Packed(A) Negative, 0-2 /hpf 10/29/2022 12:09 PM [facility] EPITHELIAL CELLS Negative /lpf 10/29/19 12:09 PM [facility] BACTERIA, URINE Few(A) Negative /hpf 10/29/2022 12:09 PM [facility] Urine URINE SPECIMEN COLLECTION, CLEAN CATCH / Unknown Non-Phlebotomy Collection / Unknown 10/29/2022 11:10 AM [facility] 10/29/2022 11:30 AM [facility] Virgen Mclaughlin Page PAC URINE ORDERABLES Final Resul t Performing Organization Address City/[facility]/ZIP Co de Phone Number [facility] [address] [place] [address] * HCG Beta Subunit Serum Quant (10/29/2022 11:10 AM [facility]) HCG BETA SUBUNIT, QUANT 4.57 <=5.00 mIU/mL 10/29/2022 11:52 AM [facility] Blood Venipuncture / Unknown 10/29/2022 11:10 AM [facility] 10/29/2022 11:31 AM [facility] Narrative [facility] - 10/29/2022 11:52 AM [facility] HCG Interpretive Reference Ranges Wks of : References Ranges 4 wks [id number] 5 wks [phone] 6 wks [id number] 7 wks [id number] 8 wks [id number] 9 wks [id number] 10 wks [id number] 14 wks [id number] 15 wks [id number] 16 wks [id number] 17 wks [id number] 18 wks [phone] 19 wks [phone] Non- Female: 0-4 us Virgen Mclaughlin Page PAC CHEMISTRY ORDERABLES Final R esult Performing Organization Address City/[facility]/ZIP Co de Phone Number [facility] [address] [place] [address] * TYPE & SCREEN (CROSSMATCH CONVERTIBLE) (10/29/2022 11:10 AM [facility]) ABO TYPING A 10/29/2022 12:20 PM [facility] RH Positive 10/29/2022 12:20 PM [facility] ABSC Negative 10/29/2022 12:20 PM [facility] Blood Venipuncture / Unknown 10/29/2022 11:10 AM [facility] 10/29/2022 11:31 AM [facility] us Virgen Mclaughlin Page PAC BLOOD BANK ORDERABLES Edited Result - Final [facility] [address] [place] [address] * (ABNORMAL) CMP (Comprehensive Metabolic Panel) (10/29/2022 11:10 AM [facility]) Pathologist [facility] SODIUM 139 136 - 144 mmol/L 10/29/2022 12:04 PM [facility] POTASSIUM 3.2(L) 3.5 - 5.1 mmol/L 10/29/2022 12:04 PM [facility] CHLORIDE 103 100 - 110 mmol/L 10/29/2022 12:04 PM [facility] CO2, VENOUS 24 22 - 32 mmol/L 10/29/2022 12:04 PM [facility] ANION GAP 15.2 8.0 - 20.0 mmol/L 10/29/2022 12:04 PM [facility] GLUCOSE 95 70 - 99 mg/dL 10/29/2022 12:04 PM [facility] BUN 7 6 - 20 mg/dL 10/29/2022 12:04 PM [facility] CREATININE, BLOOD 0.47 0.40 - 1.00 mg/dL 10/29/2022 12:04 PM [facility] BUN/CREATININE RATIO 15 12 - 20 ratio 10/29/2022 12:04 PM [facility] TOTAL PROTEIN 7.5 6.0 - 8.3 g/dL 10/29/2022 12:04 PM [facility] ALBUMIN 4.8 3.5 - 5.2 g/dL 10/29/2022 12:04 PM [facility] A/G RATIO 1.8 1.0 - 2.0 10/29/2022 12:04 PM [facility] CALCIUM 9.5 8.9 - 10.3 mg/dL 10/29/2022 12:04 PM [facility] T BILI <0.3 <=1.2 mg/dL 10/29/2022 12:04 PM [facility] SGOT (AST) 21 <=32 U/L 10/29/2022 12:04 PM [facility] SGPT (ALT) 20 <=41 U/L 10/29/2022 12:04 PM [facility] ALKALINE PHOSPHATASE 88(H) 45 - 87 U/L 10/29/2022 12:04 PM [facility] GFR, ESTIMATED >60 >=60 10/29/2022 12:04 PM [facility] Comment: Creatinine Clearance is the preferred criteria for selecting drug dose adjustments in renally impaired patients. ??The GFR is provided as additional pertinent clinical information. GFR is reported in mL/min/1.73 sq m. Calculation based on the Chronic Kidney Disease Epidemiology Collaboration (CKD- EPI) equation refit without adjustment for race. UNABLE TO CALCULATE GFR, EST. 023 12:04 PM [facility] GFR, EST. NONAFRICAN 10/29/2022 12:04 PM [facility] Blood Venipuncture / Unknown 10/29/2022 11:10 AM [facility] 10/29/2022 11:31 AM [facility] us Virgen Mclaughlin Page PAC CHEMISTRY ORDERABLES Final R esult [facility] [address] [place] [address] documented in this encounter Visit Diagnoses Diagnosis Irregular menstrual bleeding- Primary Irregular menstrual cycle Hypokalemia Hypopotassemia documented in this encounter Administered Medications Inactive Administered Medications - up to 3 most recent administrations Medication Order MAR Action Action Date Dose Rate Site potassium chloride SA (KLORCON M) tablet 20 mEq 20 mEq, Oral, ONCE, 1 dose, On 10/29/22 at 1230, Do not crush. Given 10/29/2022 12:24 PM [facility] 20 mEq documented in this encounter Active and Recently Administered Medications Times are shown in [facility]. Scheduled Medication Order 10/27/2022 10/28/2022 10/29/2022 potassium chloride SA (KLORCON M) tablet 20 mEq (COMPLETED) 20 mEq, Oral, ONCE, 1 dose, On 10/29/22 at 1230, Do not crush. 1224 (Given - Provid er: Osiris Rodriguez RN) documented in this encounter Additional Health Concerns Assessment Noted Time PHQ-9 Depression Total Score: 6 08/18/20 22 8:00 AM [facility] documented as of this encounter Care Teams Hostess Host Relationship Specialty Start Date End Date Bianka Oneill [facility] [address] [place] [address] PCP - General Physician Transportation Program Director 08/18/22 documented as of this encounter
--- OUTSIDE RECORDS SUMMARY | 2024-09-22 20:30 | XMS_ITS | Encounter Summary ---
Author Organization [facility] Address [address] [place] [address] Phone Care Team Providers Care Acute Care Physician Name Role Phone Bianka Oneill Primary Care Provider + Reason for Visit * Reason Comments Medication Refill Encounter Details Date Type Department Care Team (Late st Contact Info) Description 09/12/2022 Refill [facility] [address] [place] [address] Bianka Oneill PAC [address] [place] [address] Medication Refill Social History Tobacco Use Types [...] Coronavirus/COVID-19? No / Unsure 08/18/2022 8:08 AM PATIENT ACCESS SPECIALIST documented as of this encounter Miscellaneous Notes * Telephone Encounter - Liset Fisher RN - 09/13/2022 1:49 PM CST Medication failed the protocol, provider to review and approve the medication order if appropriate. Requested Prescriptions Pending Prescriptions Disp Refills naproxen (NAPROSYN) 500 MG Tablet [Pharmacy Med Name: NAPROXEN 500MG TABLETS] 60 Tablet 0 Sig: TAKE 1 TABLET BY MOUTH TWICE DAILY WITH MEALS NSAIDs Protocol Failed - 09/12/2022 12:47 PM Failed - No matching NSAID med order in past 45 days Matching medication order placed on 08/18/2022 9:06 AM Order [id number]: naproxen (NAPROSYN) 500 MG Tablet (For orders placed between 07/30/2022 1:49 PM and 09/13/2022 1:49 PM) Passed - Normal serum creatinine in past 12 months CREATININE, BLOOD Date Value Ref Range Status 08/18/2022 0.55 0.40 - 1.00 mg/dL Final Passed - No positive test in the past 12 months or most recent test was negative Passed - Visit with relevant provider in past 12 months or upcoming 90 days Recent Visits Date Type Provider Dept 08/18/22 Office Visit Bianka Oneill PAC Ost[facility] Bryant Showing recent visits within past 365 days and meeting all other requirements Future Appointments Date Type Provider Dept 09/29/22 Appointment Bianka Oneill PAC Ostamy Bryant Showing future appointments within next 90 days and meeting all other requirements Passed - No active on record Passed - AST less than 55 or ALT less than 90 in past 12 months SGOT (AST) Date Value Ref Range Status 08/18/2022 16 <=32 U/L Final SGPT (ALT) Date Value Ref Range Status 08/18/2022 15 <=41 U/L Final Passed - HGB greater than 10 or HCT greater than 30 in past 12 months HEMOGLOBIN (HGB) Date Value Ref Range Status 08/18/2022 10.0 (L) 12.0 - 15.8 g/dL Final HEMATOCRIT (HCT) Date Value Ref Range Status 08/18/2022 35.1 (L) 36.0 - 47.0 % Final ENT ACCESS SPECIALIST documented in this encounter Plan of Treatment Upcoming Encounters Date Type Department Care Team (Late st Contact Info) Description 10/07/2024 3:00 PM PATIENT ACCESS SPECIALIST Office Visit [facility] - Family [facility] [address] [place] [address] Bianka Oneill PAC [address] [place] [address] documented as of this encounter Visit Diagnoses Not on filedocumented in this encounter Additional Health Concerns Assessment Noted Time PHQ-9 Depression Total Score: 6 08/18/20 8:00 AM PATIENT ACCESS SPECIALIST documented as of this encounter Care Teams Acute Care Physician Relationship Specialty Start Date End Date Bianka Oneill PAC [address] [place] [address] PCP - General Physician Associate Manager Affiliate Marketing 08/18/22 documented as of this encounter
--- OUTSIDE RECORDS SUMMARY | 2024-09-22 20:30 | XMS_ITS | Encounter Summary ---
Author Organization [facility] Address [address] [facility] [place] [address] Phone Care Team Providers Care Counterintelligence Specialist Name Role Phone Bianka Oneill Primary Care Provider + Reason for Referral * Consult, Test & Initiate Treatment (Less Than 4 Weeks) - Closed Specialty Diagnoses / Procedures Referred By Suzy giraldo Referred To Contact Diagnoses Left hip pain Bianka Oneill, [address] [place] [address] Phone: tel: fax: [facility] [address] [place] [address] [address] [place] [address] Phone: tel: fax: Referral ID Status Reason Start Date Expiration Date Visits Re quested Visits Authorized [id number] Closed 09/21/2022 1 1 Scheduling Instructions Annalise is being referred to Dalia Rodriguez at [facility] phone [phone] and fax [phone] and [address] [facility] [address] or other specialist in patient's insurance network for left hip pain. See below for Annalise's current medications, allergies and problem list. CURRENT MEDS: Current Outpatient Medications: escitalopram (LEXAPRO) 10 MG Tablet, Take 1 Tablet by mouth daily., Disp: 30 Tablet, Rfl: 2 ferrous sulfate 325 (65 Fe) MG Tablet, Take 1 Tablet by mouth 2 times daily., Disp: 60 Tablet, Rfl: 3 naproxen (NAPROSYN) 500 MG Tablet, TAKE 1 TABLET BY MOUTH TWICE DAILY WITH MEALS, Disp: 60 Tablet, Rfl: 0 No current facility-administered medications for this visit. ALLERGIES: No Known Allergies PROBLEM LIST: There is no problem list on file for this patient. LANE TUBE BUILDER Reason for Visit * Reason Onset Date Comments Referral 09/21/2022 Encounter Details Date Type Department Care Team (Late st Contact Info) Description 09/21/2022 Telephone [facility] [address] [place] [address] Bianka Oneill PAC [address] [place] [address] Referral Social History Tobacco Use Types Packs/Day Years [...] encounter Miscellaneous Notes * Telephone Encounter - Abbie Chaney RN - 09/21/2022 9:18 AM CST SITUATION: Referral BACKGROUND: Patient calling to change her Orthopedic Referral. ASSESSMENT: Patient calling to have referral placed to Dalia Rodriguez at [phone] and [address] [facility] [address]. States she would like to see the same provider her mother is seeing for the same thing-Left hip pain. RECOMMENDATION: Referral pended for provider to review. Please advise. LANE TUBE BUILDER documented in this encounter Plan of Treatment Upcoming Encounters Date Type Department Care Team (Late st Contact Info) Description 10/07/2024 3:00 PM AIRPLANE TUBE BUILDER [facility] Visit [facility] [address] [place] [address] Bianka Oneill PAC [address] [place] [address] documented as of this encounter Procedures Procedure Name Priority Date/Time Associated Diagnosis Comments EXTERNAL ORTHOPEDIC REFERRAL Less Than 4 weeks 03/10/2023 12:00 AM CDT Left hip pain documented in this encounter Results * EXTERNAL ORTHOPEDIC REFERRAL (03/10/2023 12:00 AM CDT) 03/10/2023 Bianka VAIL OUTPT REFERRALS EXT/INT Final Result SCAN documented in this encounter Visit Diagnoses Diagnosis Left hip pain- Primary Pain in joint, pelvic region and thigh documented in this encounter Additional Health Concerns Assessment Noted Time PHQ-9 Depression Total Score: 6 08/18/20 8:00 AM AIRPLANE TUBE BUILDER documented as of this encounter Care Teams Counterintelligence Specialist Relationship Specialty Start Date End Date Bianka Oneill PAC [address] [place] [address] PCP - General Physician Analytical Research Chemist 08/18/22 documented as of this encounter
--- OUTSIDE RECORDS SUMMARY | 2024-09-22 20:30 | XMS_ITS | Encounter Summary ---
Author Organization [facility] Address [address] [place] [address] Phone Care Team Providers Care Health Services Rn Name Role Phone Bianka Oneill Primary Care Provider + Reason for Referral * Radiology Services (Routine) - Closed Specialty Diagnoses / Procedures Referred By Contac t Referred To Contact Radiology Diagnoses Left hip pain Procedures XR HIP 2-3 VIEWS W/PELVIS UNILATERAL LEFT Bianka Oneill PAC [address] [place] [address] Phone: tel: fax: Referral ID Status Reason Start Date Expiration Date Visits Re quested Visits Authorized Closed 08/18/2022 1 1 IAC REHAB NURSE Reason for Visit * Radiology Services (Routine) - Closed Specialty Diagnoses / Procedures Referred By Contac t Referred To Contact Radiology Diagnoses Left hip pain Procedures XR HIP 2-3 VIEWS W/PELVIS UNILATERAL LEFT Bianka Oneill PAC [address] [place] [address] Phone: tel: fax: Referral ID Status Reason Start Date Expiration Date Visits Re quested Visits Authorized Closed 08/18/2022 1 1 Encounter Details Date Type Department Care Team (Latest Contact Info) Description 08/18/2022 9:45 AM CARDIAC REHAB NURSE - 08/18/2022 11:59 PM CARDIAC REHAB NURSE Hospital Encounter [facility] Diagnostic Radiology [address] [place] [phone] Bianka Oneill, PAC [address] [place] [address] Discharge Disposition: Discharged to home or Selfcare [...] Coronavirus/COVID-19? No / Unsure 08/18/2022 8:08 AM CARDIAC REHAB NURSE documented as of this encounter Functional Status [...] Questionnaire -2 Score 2 08/18/2022 8:00 AM Toni Au documented as of this encounter Medications at Time of Discharge albuterol 108 (90 Base) MCG/ACT Aerosol Solution 2 puffs inhaled every 4-6 hours as needed for shortness of breath 6.7 g 08/18/2022 escitalopram (LEXAPRO) 10 MG Tablet Take 1 Tablet by mouth daily. 30 Tablet 2 08/18/2022 3 naproxen (NAPROSYN) 500 MG Tablet Take 1 Tablet by mouth 2 times daily (with meals). 60 Tablet 08/18/2022 2 documented as of this encounter Plan of Treatment Upcoming Encounters Date Type Department Care Team (Late st Contact Info) Description 10/07/2024 3:00 PM CARDIAC REHAB NURSE Office Visit [facility] [address] [place] [address] Bianka Oneill, PAC [address] [place] [address] documented as of this encounter Procedures Procedure Name Priority Date/Time Associated Diagnosis Comments XR HIP 2-3 VIEWS W/PELVIS UNILATERAL LEFT Routine 08/18/2022 10:25 AM CARDIAC REHAB NURSE Left hip pain documented in this encounter Results * XR HIP 2-3 VIEWS W/PELVIS UNILATERAL LEFT (08/18/2022 10:25 AM CARDIAC REHAB NURSE) Anatomical Region Laterality Modality LOWER EXTREMITY, hip, Pelvis Left Dig ital Radiography 08/19/2022 9:16 AM CARDIAC REHAB NURSE Impressions 08/19/2022 9:19 AM CARDIAC REHAB NURSE IMPRESSION: Deficient left femoral head neck junction offset which can be associated with femoroacetabular impingement. Narrative 08/19/2022 9:19 AM CARDIAC REHAB NURSE EXAM DESCRIPTION: XR HIP 2-3 VIEWS W/PELVIS [...] AM T: ??08/19/2022 9:16 AM Report ID: [id number] Reading Location: [id number] Procedure Note Mikie Kaminski MD - 08/19/2022 [...] Mikie Kaminski M.D. MF: CULLEN Report ID: [id number] Reading Location: [id number] IMPRESSION: Deficient left femoral head neck junction offset which can be associated with femoroacetabular impingement. Bianka Oneill PAC IMG DIAGNOSTIC ORDERABLE S Final Result documented in this encounter Visit Diagnoses Diagnosis Left hip pain Pain in joint, pelvic region and thigh documented in this encounter Additional Health Concerns Assessment Noted Time PHQ-9 Depression Total Score: 6 08/18/20 22 8:00 AM CARDIAC REHAB NURSE documented as of this encounter Care Teams Health Services Rn Relationship Specialty Start Date End Date Bianka Oneill, PAC [address] [place] [address] PCP - General Physician Pile Driver Operator Helper 08/18/22 documented as of this encounter
--- OUTSIDE RECORDS SUMMARY | 2024-09-22 20:30 | XMS_ITS | Encounter Summary ---
Author Organization [facility] [employer] Care Team Providers Care Organizational Psychologist Name Role Phone Bianka Oneill Primary Care Provider + Encounter Details Date Type Department Care Team (Latest Contact Info) Description 10/21/2022 Travel Social History Tobacco Use Types Packs/Day [...] suspected to have Coronavirus/COVID-19? No / Unsure 10/21/2022 10:36 AM APPLICATION PENETRATION TESTER documented as of this encounter Plan of Treatment Upcoming Encounters Date Type Department Care Team (Late st Contact Info) Description 10/07/2024 3:00 PM APPLICATION PENETRATION TESTER Office Visit [facility] - Family Medicine [facility] [address] [place] [address] Bianka Oneill PAC [address] [place] [address] documented as of this encounter Visit Diagnoses Not on filedocumented in this encounter Additional Health Concerns Assessment Noted Time PHQ-9 Depression Total Score: 6 08/18/20 22 8:00 AM APPLICATION PENETRATION TESTER documented as of this encounter Care Teams Organizational Psychologist Relationship Specialty Start Date End Date Bianka Oneill PAC [address] [place] [address] PCP - General Physician Hotel Sales Manager 08/18/22 documented as of this encounter
--- OUTSIDE RECORDS SUMMARY | 2024-09-22 21:28 | XMS_ITS | Encounter Summary ---
Author Organization [facility] Address [address] [place] [address] Phone Care Team Providers Care Machine Feed Operator Name Role Phone Bianka Oneill Primary Care Provider + Reason for Visit * Reason Comments Anxiety * Auth/Cert (Routine) Specialty Diagnoses / Procedures Referred By Contac t Referred To Contact Referral ID Status Reason Start Date Expiration Date Visits Re quested Visits Authorized [id number] 1 1 Encounter Details Date Type Department Care Team ([facility] Contact Info) Description 06/23/2023 9:15 AM CDT Telemedicine [facility] Behavioral Health Services [address] [place] [address] Che Dickerson, MANUFACTURING SUPPORT ENGINEER [address] [place] [address] Anxiety (Primary Dx) Discharge Disposition: Discharged to [...] this encounter Progress Notes * Che Dickerson, MANUFACTURING SUPPORT ENGINEER - 06/23/2023 9:15 AM CDT Images from the original note were not included. [facility] CLINICAL PROGRESS NOTE NAME: Annalise [...] Ready to change Department associated with goal: [facility] BE[facility]AVIORAL HE[facility] SERVICES Steps to achieve goal: [...] st Contact Info) Description 10/07/2024 3:00 PM FOOTBALL PAD REPAIRER Office Visit [facility] [address] [place] [address] Bianka Oneill [facility] [address] [place] [address] documented as of this encounter Goals Goal Patient Goal Type Associated Problems Recent Progress Patient-Stated? Author just want to feel normal Behavioral Health On track(2023 4:08 PM FOOTBALL PAD REPAIRER) Yes Che Dickerson LCSW Note: Goal/Objective: Decrease anxious and depressive symptoms. Anticipated Time Frame for Goal Completion: 6 months Goal Reviewed with: patient Readiness to change: Ready to change Department associated with goal: [facility] BE[facility] Steps to achieve goal: [...] documented as of this encounter Care Teams Machine Feed Operator Relationship Specialty Start Date End Date Bianka Oneill PAC [address] [place] [address] PCP - General Physician Medical Clerical Assistant 08/18/22 documented as of this encounter
--- OUTSIDE RECORDS SUMMARY | 2024-09-22 21:28 | XMS_ITS | Encounter Summary ---
Author Organization [facility] [employer] Care Team Providers Care Die Cutter Apprentice Name Role Phone Bianka Oneill Primary [...] st Contact Info) Description 10/07/2024 3:00 PM LEGAL RECOVERY SPECIALIST Office Visit [facility] Group - Family Medicine [facility] [address] [place] [address] Bianka Oneill PAC [address] [place] [address] documented as of this encounter Goals Goal Patient Goal Type Associated Problems Recent Progress Patient-Stated? Author just want to feel normal Behavioral Health On track(2023 4:08 PM LEGAL RECOVERY SPECIALIST) Yes Che Dickerson, INSTALLER APPRENTICE Note: Goal/Objective: Decrease anxious and depressive symptoms. Anticipated Time Frame for Goal Completion: 6 months Goal Reviewed with: patient Readiness to change: Ready to change Department associated with goal: [facility] Steps to achieve [...] documented as of this encounter Care Teams Die Cutter Apprentice Relationship Specialty Start Date End Date Bianka Oneill PAC [address] [place] [address] PCP - General Physician Analyst Sales 08/18/22 documented as of this encounter
--- OUTSIDE RECORDS SUMMARY | 2024-09-22 21:28 | XMS_ITS | Encounter Summary ---
Author Organization [facility] Address [address] [place] [address] Phone Care Team Providers Care Filter Assembler Name Role Phone Bianka Oneill Primary Care Provider + Reason for Visit * Consult, Test & Initiate Treatment (Routine) - Closed Specialty Diagnoses / Procedures Referred By Contac t Referred To Contact Behavioral Health Diagnoses Anxiety Bianka Oneill PAC [address] [place] [address] Phone: tel: fax: Che Dickerson, CREDIT ADMINISTRATION SPECIALIST [address] [place] [address] Phone: tel: fax: Referral ID Status Reason Start Date Expiration Date Visits Re quested Visits Authorized [id number] Closed 03/23/2023 1 1 Encounter Details Date Type Department Care Team (Latest Contact Info) Description 05/17/2023 2:30 PM CDT Outpatient Clinic Visit [facility] Behavioral Health Services [address] [place] [address] Bianka Oneill PAC [address] [place] [address] Che Dickerson LCSW [address] [place] [address] Anxiety Discharge Disposition: Discharged to home or [...] Hotlines - Crisis Intervention 10/04 Intervention Team [facility] Crisis Intervention Team?[phone] ([facility] Crisis Intervention Team?.. [phone] ([facility] Can be used by individual, PD, Hospitals, family, friend etc. for in-home assessment of concerns for someone's mental health Local Numbers - Behavioral Health Response (BHR)?[phone] / [phone] ([place]) Life Crisis Services?.689-687- EFUC (7340) ([place]) CARES Line (Medicaid patients up to age 21)???[phone] If non-Medicaid patient, still need tocall Cares Line and if screened out will be sent to [facility] or [place] for follow up Crisis Intervention Team National Numbers - National Suicide Prevention Hotline: ?.988 or 1-370-890-TALK (1072) Sexual Assault Hotline?2-343-556-LILLIAN (3098) Domestic Violence Hotline?.4-529-437-SAFE (5178) [employer] [facility] Lifeline? Trans Lifeline?6-095- 349-9771 LGBTQ Partner Abuse & Sexual Assault Line?.1-634.120.6808 Crisis Text Line?Text help to 845313 Warm Lines [place] Warmline?8-268-758-79 [facility] Warm[facility]? 9a-9p/7 days a week Compassionate Ear Warmline?..9-405-551-2791 MENTAL HEALTH EMERGENCY- Assessment for Crisis/or/ED's with Inpatient Units Behavioral Health Urgent Care [facility] Behavioral Health Urgent Care [phone] (5yrs old to Adult) [address] [place] [address] Monday - Monday 9:00am - 7:00pm *Last patient seen at 6:00pm Walk-In Crisis or Telehealth for age 18+ Crisis Walk In: Call for Help's Living Room: Monday-Monday 8:30am-5pm [address], [place] [address] Crisis Telehealth: Monday, Monday, Monday 8:30am-5:00pm and Monday, 12:00pm-8:00pm. Must have good internet connection. To access telehealth go to ???Talk to Someone Now?? or call [phone] ext. 109. No cost and no insurance necessary. Emergency Department diversion program. [facility] (Intake Adult Acute) [phone] [place] [address]. https://[facility]/services/rxvvtgzcar-dbmizz-ewj-wellness [facility] [phone] (Intake Adult 18+-Used by clinician to alert that patient will be coming in through the emergency room) [address] [place] [address] [facility] (10/04 - emergency services for children age 4+, adolescent, adult) [phone] [place] [address]. Adult Inpatient Facility. http://[facility].org/ [facility] Sexual Assault Victims Care Unit. (Children, adolescent, adult) 10/04 crisis intervention: 822.118.2667 Hotline Number and Main Office. Community Stabilization (Homeless adults with Mental Illness) 110.498.3433. http://[facility].org/ [facility] 471-425-6545883.513.5498 (children, adolescent, adult) [address] [place] [address] http://[facility].com/admission-informationfaqs/ [facility] Behavioral Health [phone] Option #1 (adult) [address] [place] [address] https://www.[facility]/service/mental-health Inpatient evaluations conducted in Intake office on the ground floor 8am-4pm [facility] (children, adolescent, adult) http://www.[facility]/behavioralhealth [facility] [phone] (Adult only) https://www.[facility]/psychiatry/xovqd-olfksdxklm-hkzathiw.php [facility] Behavioral Health. [phone] (children, adolescent, adult) http://www.[facility]/medical-services/behavioral-health documented in this encounter Progress Notes * Che Dickerson LCSW - 05/17/2023 2:30 PM CDT [facility] BEHAVIORAL HEALTH INITIAL EVALUATION Name: Annalise Vogt [...] Perception: No hallucinations Memory: Reported: Short and terminal operations supervisor memory intact Attention: Able to focus during the interview Insight/Judgement: Normal insight and judgement FUNCTIONAL ASSESSMENT: Can the patient perform Activities of Daily Living (ADL'S)?: Patient is able to complete ADL's independently Does patient have the ability and the capacity to respond to treatment?: Yes RISK ASSESSMENT: Suicidal Ideation: There is no current suicidal ideation.. -[place]- Suicide Severity Rating Scale: Risk Stratification: Suicide [...] works Are there any languages other than Comoran spoken in the home? No Are there any Alevism or Cultural Considerations that may impact treatment [...] st Contact Info) Description 10/07/2024 3:00 PM FEEDER ASSOCIATE Office Visit [facility] [address] [place] [address] Bianka Oneill, [facility] [address] [place] [address] documented as of this encounter Goals Goal Patient Goal Type Associated Problems Recent Progress Patient-Stated? Author just want to feel normal Behavioral Health On track(2023 4:08 PM FEEDER ASSOCIATE) Yes Che Dickerson LCSW Note: Goal/Objective: Decrease anxious and depressive symptoms. Anticipated Time Frame for Goal Completion: 6 months Goal Reviewed with: patient Readiness to change: Ready to change Department associated with goal: [facility]AVIOR[facility] HE[facility] SERVICES Steps to achieve [...] Total Score: 6 08/18/20 22 8:00 AM FEEDER ASSOCIATE documented as of this encounter Care Teams Filter Assembler Relationship Specialty Start Date End Date Bianka Oneill PAC [address] [place] [address] PCP - General Physician Patient Support Tech 08/18/22 documented as of this encounter
--- OUTSIDE RECORDS SUMMARY | 2024-09-22 21:28 | XMS_ITS | Encounter Summary ---
Author Organization [facility] [employer] Care Team Providers Care Coating Line Worker Name Role Phone Bianka Oneill Primary Care [...] st Contact Info) Description 10/07/2024 3:00 PM BIBLIOGRAPHIC SERVICES SPECIALIST Office Visit [facility] Medical [facility] [address] [place] [address] Bianka Oneill PAC [address] [place] [address] documented as of this encounter Goals Goal Patient Goal Type Associated Problems Recent Progress Patient-Stated? Author just want to feel normal Behavioral Health On track(2023 4:08 PM BIBLIOGRAPHIC SERVICES SPECIALIST) Yes Che Dickerson, [place] WIPER REPAIRER Note: Goal/Objective: Decrease anxious and depressive symptoms. [...] documented as of this encounter Care Teams Coating Line Worker Relationship Specialty Start Date End Date Bianka Oneill PAC [address] [place] [address] PCP - General Physician Teacher Emotionally Impaired 08/18/22 documented as of this encounter
--- OUTSIDE RECORDS SUMMARY | 2024-09-22 21:28 | XMS_ITS | Encounter Summary ---
Author Organization [facility] Address [address] [place] [address] Phone Care Team Providers Care Web Analytics Specialist Name Role Phone Bianka Oneill Primary Care Provider + Suresh Gleason MD Unavailable Encounter Details Date Type Department Care Team (Late st Contact Info) Description 07/26/2023 Behavioral Health Patient Survey [facility] [address] [place] [address] Che Dickerson, [facility] [address] [place] [address] Social History Tobacco Use Types Packs/Day Years [...] Coronavirus/COVID-19? No / Unsure 07/26/2023 11:17 AM INTERPRETIVE NATURALIST documented as of this encounter Plan of Treatment Upcoming Encounters Date Type Department Care Team (Late st Contact Info) Description 10/07/2024 3:00 PM INTERPRETIVE NATURALIST Office Visit [facility] Medical [facility] [address] [place] [address] Bianka Oneill PAC [address] [place] [address] documented as of this encounter Goals Goal Patient Goal Type Associated Problems Recent Progress Patient-Stated? Author just want to feel normal Behavioral Health On track(2023 4:08 PM INTERPRETIVE NATURALIST) Yes Che Dickerson, IT SYSTEMS ANALYST CONSULTANT Note: Goal/Objective: Decrease anxious and depressive [...] documented as of this encounter Care Teams Web Analytics Specialist Relationship Specialty Start Date End Date Bianka Oneill PAC [address] [place] [address] PCP - General Physician Wet Pan Operator 08/18/22 Suresh Gleason MD #[address] [address] Consulting Physician General Surgery 03/11/24 documented as of this encounter
--- OUTSIDE RECORDS SUMMARY | 2024-09-22 21:28 | XMS_ITS | Encounter Summary ---
Author Organization [facility] Address [address] [place] [address] Phone Care Team Providers Care Data Security Consultant Name Role Phone Bianka Oneill Primary Care Provider + Reason for Visit * Reason Comments Anxiety Depression * Auth/Cert (Routine) Specialty Diagnoses / Procedures Referred By Contac t Referred To Contact Referral ID Status Reason Start Date Expiration Date Visits Re quested Visits Authorized [id number] 1 1 Encounter Details Date Type Department Care Team (Late st Contact Info) Description 06/01/2023 2:30 PM CDT Telemedicine [facility] [address] [place] [address] Che Dickerson, TIMBER ESTIMATOR [address] [place] [address] Anxiety (Primary Dx) Discharge Disposition: Discharged to [...] this encounter Progress Notes * Che Dickerson, TIMBER ESTIMATOR - 06/01/2023 2:30 PM CDT Images from the original note were not included. [facility] BEHAVIORAL HEALTH CLINICAL PROGRESS NOTE NAME: Annalise Vogt AGE: 18 y.o. DATE OF : 2005 DATE OF SERVICE: 06/02/2023 START TIME: 2:30 pm END TIME: 3:10 pm Patient was assessed via online video for a duration of 40 minutes. Patient verbally consented for this service to be performed and billed.The patient was at [employer], in car. DIAGNOSIS: 1. Anxiety TREATMENT PLAN: Goals Addressed This Visit's Progress ??? just want to feel normal (pt-stated) On track Goal/Objective: Decrease anxious and depressive symptoms. Anticipated Time Frame for Goal Completion: 6 months Goal Reviewed with: patient Readiness to change: Ready to change Department associated with goal: [facility] Steps to achieve goal: [...] st Contact Info) Description 10/07/2024 3:00 PM SOCIAL WORK ADMINISTRATOR Office Visit [facility] [address] [place] [address] Bianka Oneill, [facility] [address]2 [place] [address] documented as of this encounter Goals Goal Patient Goal Type Associated Problems Recent Progress Patient-Stated? Author just want to feel normal Behavioral Health On track(2023 4:08 PM SOCIAL WORK ADMINISTRATOR) Yes Che Dickerson LCSW Note: Goal/Objective: Decrease anxious and depressive symptoms. Anticipated Time Frame for Goal Completion: 6 months Goal Reviewed with: patient Readiness to change: Ready to change Department associated with goal: [facility] Steps to achieve goal: [...] documented as of this encounter Care Teams Data Security Consultant Relationship Specialty Start Date End Date Bianka Oneill PAC [address] [place] [address] PCP - General Physician Sequins Stringer 08/18/22 documented as of this encounter
--- OUTSIDE RECORDS SUMMARY | 2024-09-22 21:28 | XMS_ITS | Encounter Summary ---
Author Organization [facility] [employer] Care Team Providers Care Housekeeper Manager Name Role Phone Bianka Oneill Primary [...] Contact Info) Description 10/07/2024 3:00 PM SENIOR ENTERPRISE ARCHITECT Office Visit [facility] Medical Group - Family Medicine [facility] [address]2 [place] [address] Bianka Oneill PAC [address] [place] [address] documented as of this encounter Goals Goal Patient Goal Type Associated Problems Recent Progress Patient-Stated? Author just want to feel normal Behavioral Health On track(2023 4:08 PM SENIOR ENTERPRISE ARCHITECT) Yes Che Dickerson, SHUTTLE PREPARATION SUPERVISOR Note: Goal/Objective: Decrease anxious and depressive symptoms. [...] documented as of this encounter Care Teams Housekeeper Manager Relationship Specialty Start Date End Date Bianka Oneill PAC [address] [place] [address] PCP - General Physician Sample Shoe Inspector And Reworker 08/18/22 Suresh Gleason MD [address] [address] Consulting Physician General Surgery 03/11/24 documented as of this encounter
--- OUTSIDE RECORDS SUMMARY | 2024-09-22 21:28 | XMS_ITS | Encounter Summary ---
Author Organization [facility] [employer] Care Team Providers Care Log Raft Worker Name Role Phone Bianka Oneill Primary [...] st Contact Info) Description 10/07/2024 3:00 PM HOUSEHOLD APPLIANCE MECHANIC Office Visit [facility] Medical [facility] [address] [place] [address] Bianka Oneill, PAC [address] [place] [address] documented as of this encounter Goals Goal Patient Goal Type Associated Problems Recent Progress Patient-Stated? Author just want to feel normal Behavioral Health On track(2023 4:08 PM HOUSEHOLD APPLIANCE MECHANIC) Yes Che Dickerson, CARPENTERS Note: Goal/Objective: Decrease anxious and depressive symptoms. Anticipated Time Frame for Goal Completion: 6 months Goal Reviewed with: patient Readiness to change: Ready to change Department associated with goal: [facility] BE[facility]AVIORAL HEALTH SERVICES Steps [...] documented as of this encounter Care Teams Log Raft Worker Relationship Specialty Start Date End Date Bianka Oneill PAC [address] [place] [address] PCP - General Physician Licensed Clinician 08/18/22 documented as of this encounter
--- OUTSIDE RECORDS SUMMARY | 2024-09-22 21:28 | XMS_ITS | Encounter Summary ---
Author Organization [facility] Address [address] [place] [address] Phone Care Team Providers Care Health Safety Specialist Name Role Phone Bianka Oneill Primary Care Provider + Suresh Gleason MD Unavailable Reason for Visit * Reason Comments Medication Refill Encounter Details Date Type Department Care Team (Late st Contact Info) Description 07/13/2023 [facility]ill [facility] [address] [place] [address] Bianka Oneill PAC [address] [place] [address] Medication Refill Social History Tobacco Use Types [...] st Contact Info) Description 10/07/2024 3:00 PM PERINATAL SPECIALIST Office Visit [facility] Medical [facility] [address] [place] [address] Bianka Oneill PAC [address] [place] [address] documented as of this encounter Goals Goal Patient Goal Type Associated Problems Recent Progress Patient-Stated? Author just want to feel normal Behavioral Health On track(2023 4:08 PM PERINATAL SPECIALIST) Yes Che Dickerson, BOTTLE WASHER Note: Goal/Objective: Decrease anxious and depressive symptoms. Anticipated Time Frame for Goal Completion: 6 months Goal Reviewed with: patient Readiness to change: Ready to change Department associated with goal: [facility] BE[facility]AVIOR[facility] HE[facility] Steps to achieve [...] as of this encounter Care Teams Health Safety Specialist Relationship Specialty Start Date End Date Bianka Oneill PAC [address] [place] [address] PCP - General Physician Under Presser 08/18/22 Suresh Gleason MD [address] [address] Consulting Physician General Surgery 03/11/24 documented as of this encounter
--- OUTSIDE RECORDS SUMMARY | 2024-09-22 21:28 | XMS_ITS | Encounter Summary ---
Author Organization [facility] [employer] Care Team Providers Care Template Layout Worker Name Role Phone Bianka Oneill Primary [...] Coronavirus/COVID-19? No / Unsure 07/26/2023 11:17 AM WORKFORCE SPECIALIST documented as of this encounter Plan of Treatment Upcoming Encounters Date Type Department Care Team (Late st Contact Info) Description 10/07/2024 3:00 PM WORKFORCE SPECIALIST Office Visit [facility] Medical [facility] [place] [address]2 [place] [address] Bianka Oneill PAC [address] [place] [address] documented as of this encounter Goals Goal Patient Goal Type Associated Problems Recent Progress Patient-Stated? Author just want to feel normal Behavioral Health On track(2023 4:08 PM WORKFORCE SPECIALIST) Yes Che Dickerson, RUBBING BED OPERATOR Note: Goal/Objective: Decrease anxious and depressive symptoms. Anticipated Time Frame for Goal Completion: 6 months Goal Reviewed with: patient Readiness to change: Ready to change Department associated with goal: [facility] BE[facility]AVIORAL HEALTH SERVICES Steps to achieve [...] documented as of this encounter Care Teams Template Layout Worker Relationship Specialty Start Date End Date Bianka Oneill PAC [address] [place] [address] PCP - General Physician Collect On Delivery Clerk 08/18/22 documented as of this encounter
--- OUTSIDE RECORDS SUMMARY | 2024-09-22 21:28 | XMS_ITS | Encounter Summary ---
Author Organization [facility] Address [address] [place] [address] Phone Care Team Providers Care Dog Races Manager Name Role Phone Bianka Oneill Primary Care Provider + Reason for Visit * Auth/Cert (Routine) Specialty Diagnoses / Procedures Referred By Contac t Referred To Contact Diagnoses GALLBLADDER DISEASE Procedures LAPAROSCOPIC CHOLECYSTECTOMY WITH / WITHOUT CHOLANGIOGRAMS Suresh Gleason MD [address] [address] Phone: tel: fax: Referral ID Status Reason Start Date Expiration Date Visits Re quested Visits Authorized [id number] 1 1 Encounter Details Date Type Department Care Team (Late st Contact Info) Description 03/05/2024 8:10 AM CDT - 03/05/2024 10:10 AM CDT Surgery [facility] Periop [address] [place] [address] Suresh Gleason MD #[address] [address] LAPAROSCOPIC CHOLECYSTECTOMY Surgery Details Date/Time Status Location OR Service Patient Class Case Class Case Type Trauma Case? 03/05/2024 8:10 AM Posted [facility] OR 02 [facility] Ambulatory Surgery [...] Everywhere. * Minimally Invasive Cholecystectomy Care After Cenc-hx-Iqoo (Omani) documented in this encounter Medications at Time [...] the report from the CT scan from [facility]. We will upload images to our system. [...] observation. Information booklet regarding cholecystectomy from the [employer] was also provided. Total time spent on this encounter on this date of service, including pre-visit review of separately obtained history, clro-as-yomu interaction performing medically appropriate physical exam, patientcounseling/education, interpretation of diagnostic results, care coordination and documentation was45 minutes. Subjective: HPI: Annalise Vogt is a 18 y.o. female who I was asked to see by YARED Sims for possible gallbladder disease. She is a very pleasant lady, she had a baby recently. 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 She has been having epigastric abdominal pain that radiates to her back for the last couple of months. Sometimes associated with greasy food intake but sometimes not. The pain comes and goes is not all the time. Sometimes associated with nausea but no emesis. She denies any history priorabdominal operations. She did visit [facility] and a CT scan was performed [...] No complaints, VSS. Pt. Instructed to turn director of collections light when dressed. Pt. To be wheeled [...] videos and all your education online visit, [email or web address] or scan this QR code with your [...] Follow these instructions at home: Medicines Take mtpd-dct-pcmkxbf and prescription medicines only as told by [...] cannot use soap and water, use hand fans clerk. ? Change your bandage. ? Leave stitches [...] 2009-06-13 Document Updated: 2022-03-08 Document Reviewed: 2022-03-08 [employer] Patient Education ? 2023 [employer] * Plan of Care - Moo Moy RN - 03/05/2024 9:11 AM CDT Patient will be discharged from PACU when criteria has been met. * Plan of Care - Elvira Arechiga RN - 03/05/2024 7:16 AM CDT Problem: Adult Inpatient Plan of Care Goal: Plan of Care Review Outcome: Ongoing (see interventions/notes) Flowsheets (Taken 03/05/2024 [id number]) Plan of Care Reviewed With: patient family [...] Owens RN - 03/01/2024 12:38 PM CDT [facility] Patient Name: Annalise Vogt : 2005 CSN#: [id number] Person Educated Patient Ready to Learn Yes [...] be allowed to accompany you to the [facility]. No children under theage of 16 will be allowed in the [facility] unless they are the patient. If [...] Patient Response: Verbalizes Understanding Patient assessed for language teacher during the preop interview and appropriate interventions taken if applicable. documented in this encounter Plan of Treatment Upcoming Encounters Date Type Department Care Team (Late st Contact Info) Description 10/07/2024 3:00 PM MARKET RESEARCH MANAGER Office Visit [facility] Medical [facility] [address]2 [place] [address] Bianka Oneill, [facility] [address]2 [place] [address] documented as of this encounter Goals Goal Patient Goal Type Associated Problems Recent Progress Patient-Stated? Author just want to feel normal Behavioral Health On track(2023 4:08 PM MARKET RESEARCH MANAGER) Yes Che Dickerson, MORTGAGE PROFESSIONAL Note: Goal/Objective: Decrease anxious and depressive symptoms. Anticipated Time Frame for Goal Completion: 6 months Goal Reviewed with: patient Readiness to change: Ready to change Department associated with goal: [facility]AVIOR[facility] Steps to achieve goal: [...] Case Report Surgical Pathology Report ? Case: [id number] ? Authorizing Provider: ??Suresh Gleason, ??Collected: ? 03/05/2024 08:09 AM ? MD ? Ordering Location: ? [facility] ? Received: ?03/05/2024 10:23 AM ? [facility] ? Main OR ? Pathologist: ? Luis Pedraza MD ? Specimen: ?Gallbladder, GALLBLADDER ? 03/06/2024 7:59 AM CDT [facility] FINAL DIAGNOSIS Gallbladder, cholecystectomy: - Chronic cholecystitis - Cholesterolosis 03/06/2024 7:59 AM CDT [facility] Pre-Operative Diagnosis GALLBLADDER DISEASE 03/06/2024 7:59 AM CDT [facility] Gross Description A. GALLBLADDER [...] up to 0.2 cm in greatest thickness. Stump Shooter sample of the cystic duct and neck along with the body and fundus are submitted in cassette A1. MH/sb Total time of fixation is 13 hours, 37 minutes. 03/06/2024 7:59 AM CDT [facility] Microscopic Description There are no obvious stones in the lumen of the gallbladder or in the container in which it is received. Stump Shooter sections of the wall show benign-appearing biliary epithelium with Rokitansky Aschoff sinuses and subepithelial foamy macrophages. 03/06/2024 7:59 AM CDT [facility] Tissue GALLBLADDER STRUCTURE / Unknown 03/05/2024 8:09 AM CDT 03/05/2024 10:23 AM CDT Suresh Gleason MD PATHOLOGY/CYTOLOGY OR DERABLES Final Result [facility] #1 [place] [address] * POCT Urine HCG () (03/05/2024 7:20 AM CDT) POC URINE Negative POC URINE CONTROL Sealer [employer] Pass Urine 03/05/2024 7:20 AM CDT Suresh Gelason MD POINT OF CARE TESTING (MANUAL) Final [...] 2) increasing dosage, or 3) changing to RECEIVER DISPATCHER. Give 1 Tablet for moderate pain rating [...] 2) increasing dosage, or 3) changing to RECEIVER DISPATCHER. Give 1 Tablet for moderate pain rating [...] documented as of this encounter Care Teams Dog Races Manager Relationship Specialty Start Date End Date Bianka Oneill PAC [address] [place] [address] PCP - General Physician Ship Mate 08/18/22 documented as of this encounter
--- OUTSIDE RECORDS SUMMARY | 2024-09-22 21:28 | XMS_ITS | Encounter Summary ---
Author Organization [facility] Address [address] [place] [address] Phone Care Team Providers Care Rapid Outsole Stitcher Name Role Phone Bianka Oneill Primary Care Provider + Suresh Gleason MD Unavailable [phone] Reason for Visit * Reason Comments Mole Encounter Details Date Type Department Care Team (Late st Contact Info) Description 03/29/2024 11:30 AM CDT [facility] [place] #[address] [address] Suresh Gleason MD #[address] [address] Skin lesion (Primary Dx) Discharge [...] st Contact Info) Description 10/07/2024 3:00 PM GRADES 9 THROUGH 12 TEACHER Office Visit [facility] Medical [facility] #2 [place] [address] Bianka Oneill PAC [address] [place] [address] Scheduled Orders Name Type Priority Associated Diagnoses Orde r Schedule EXC SKIN BENIG 1.1-2CM TRUNK,ARM,LEG Procedures Routine Skin lesion Ordered: 03/29/2024 documented as of this encounter Goals Goal Patient Goal Type Associated Problems Recent Progress Patient-Stated? Author just want to feel normal Behavioral Health On track(2023 4:08 PM GRADES 9 THROUGH 12 TEACHER) Yes Che Dickerson, SWING MANAGER Note: Goal/Objective: Decrease anxious and depressive symptoms. Anticipated Time Frame for Goal Completion: 6 months Goal Reviewed with: patient Readiness to change: Ready to change Department associated with goal: [facility]AVIOR[facility] HE[facility] Steps to [...] Case Report Surgical Pathology Report ? Case: [id number] ? Authorizing Provider: ??Suresh Gleason, ??Collected: ? 03/29/2024 12:22 PM ? MD ? Ordering Location: ? [facility] - ?Received: ?03/29/2024 12:22 PM ? General Surgery - [place] ? Pathologist: ? Jelani Lawrence MD PhD ? Specimen: ?Shoulder, Skin left shoulder ? 04/01/2024 11:44 AM T [facility] FINAL DIAGNOSIS Skin, left shoulder, lesion, excision: - Skin with focal parakeratosis, papillary acanthosis, and lichenoid chronic inflammatory infiltration - Negative for malignancy 04/01/2024 11:44 AM [facility] Pre-Operative Diagnosis Skin lesion left shoulder 04/01/2024 11:44 AM [facility] Gross Description A. Skin left shoulder [...] hours, 24 minutes. 04/01/2024 11:44 AM T [facility] Microscopic Description Microscopic examination was performed which supports the final diagnosis. All control tissues stained appropriately. 04/01/2024 11:44 AM [facility] Other SHOULDER REGION STRUCTURE / Unknown Non-Phlebotomy Collection / Unknown 03/29/2024 12:22 PM CDT 03/29/2024 12:22 PM CDT Suresh Gleason MD PATHOLOGY/CYTOLOGY OR DERABLES Final Result [facility] [address] [place] [address] documented in this encounter Visit Diagnoses Diagnosis [...] documented as of this encounter Care Teams Rapid Outsole Stitcher Relationship Specialty Start Date End Date Bianka Oneill PAC [address] [place] [address] PCP - General Physician Specimen Accessioner 08/18/22 Suresh Gleason MD #[address] [address] Consulting Physician General Surgery 03/11/24 documented as of this encounter
--- OUTSIDE RECORDS SUMMARY | 2024-09-22 21:28 | XMS_ITS | Encounter Summary ---
Author Organization [facility] Address [address] [place] [address] Phone Care Team Providers Care Firepot Operator And Tender Name Role Phone Bianka Oneill Primary Care Provider + Suresh Gleason MD Unavailable Reason for Visit * Reason Comments Surgical Follow-up Lap joe would like lesion looked at Encounter Details Date Type Department Care Team (Late st Contact Info) Description 03/27/2024 11:00 AM CDT Office Visit [facility] Medical Group - General Surgery - Home #[address] [address] Suresh Gleason MD #[address] [address] History of laparoscopic cholecystectomy (Primary [...] encounter Patient Instructions * Patient Instructions* Suresh lGeason MD - 03/27/2024 11:00 AM CDT FINAL [...] st Contact Info) Description 10/07/2024 3:00 PM LAUNDRY ROUTEMAN Office Visit [facility] #2 [place] [address] Bianka Oneill [facility] #[address] [place] [address] documented as of this encounter Goals Goal Patient Goal Type Associated Problems Recent Progress Patient-Stated? Author just want to feel normal Behavioral Health On track(2023 4:08 PM LAUNDRY ROUTEMAN) Yes Che Dickerson, FOOD SERVICE ATTENDANT Note: Goal/Objective: Decrease anxious and depressive symptoms. [...] documented as of this encounter Care Teams Firepot Operator And Tender Relationship Specialty Start Date End Date Bianka Oneill PAC [address] [place] [address] PCP - General Physician Appraiser Irrigation Tax 08/18/22 Suresh Gleason MD #[address] [address] Consulting Physician General Surgery 03/11/24 documented as of this encounter
--- OUTSIDE RECORDS SUMMARY | 2024-09-22 21:28 | XMS_ITS | Encounter Summary ---
Author Organization [facility] Address [address] [place] [address] Phone Care Team Providers Care Boy'S Adviser Name Role Phone Bianka Oneill Primary Care Provider + Suresh Gleason MD Unavailable [phone] Encounter Details Date Type Department Care Team (Late st Contact Info) Description 06/23/2023 Behavioral Health [facility] [address] [place] [address] Che Dickerson, [facility] [address] [place] [address] Social History Tobacco Use Types Packs/Day Years [...] st Contact Info) Description 10/07/2024 3:00 PM LOGISTICS ENGINEERING MANAGER Office Visit [facility] Medical [facility] #2 [place] [address] Bianka Oneill PAC [address] [place] [address] documented as of this encounter Goals Goal Patient Goal Type Associated Problems Recent Progress Patient-Stated? Author just want to feel normal Behavioral Health On track(2023 4:08 PM LOGISTICS ENGINEERING MANAGER) Yes Che Dickerson, DATA MANAGEMENT ENGINEER Note: Goal/Objective: Decrease anxious and depressive symptoms. Anticipated Time Frame for Goal Completion: 6 months Goal Reviewed with: patient Readiness to change: Ready to change Department associated with goal: [facility] Steps to achieve goal: [...] documented as of this encounter Care Teams Boy'S Adviser Relationship Specialty Start Date End Date Bianka Oneill PAC [address] [place] [address] PCP - General Physician Credit Administration Specialist 08/18/22 Suresh Gleason MD #[address] [address] Consulting Physician General Surgery 03/11/24 documented as of this encounter
--- OUTSIDE RECORDS SUMMARY | 2024-09-22 21:28 | XMS_ITS | Encounter Summary ---
Author Organization [facility] [employer] Care Team Providers Care Estate Agent Name Role Phone Bianka Oneill Primary [...] st Contact Info) Description 10/07/2024 3:00 PM BOX SPRING MAKER Office Visit [facility] Medical [facility] [address] [place] [address] Bianka Oneill, PAC [address] [place] [address] documented as of this encounter Goals Goal Patient Goal Type Associated Problems Recent Progress Patient-Stated? Author just want to feel normal Behavioral Health On track(2023 4:08 PM BOX SPRING MAKER) Yes Che Dickerson LCSW Note: Goal/Objective: Decrease [...] Total Score: 6 08/18/20 22 8:00 AM BOX SPRING MAKER documented as of this encounter Care Teams Estate Agent Relationship Specialty Start Date End Date Bianka Oneill PAC [address] [place] [address] PCP - General Physician Hostess Party Sales Representative 08/18/22 documented as of this encounter
--- OUTSIDE RECORDS SUMMARY | 2024-09-22 21:28 | XMS_ITS | Encounter Summary ---
Author Organization [facility] Address [address] [facility] [place] [address] Phone Care Team Providers Care Slab Installer Name Role Phone Bianka Oneill Primary Care Provider + Reason for Visit * Reason Onset Date Comments Chest Pain 06/19/2023 Encounter Details Date Type Department Care Team (Late st Contact Info) Description 06/19/2023 Nurse Triage [facility] [address] [place] [address] Bianka Oneill, PAC [address] [place] [address] Chest Pain Social History Tobacco Use Types [...] 12:38 PM CDT Called Medical Records at [facility], call center said needed to fax a request for records to [phone], request faxed. * Telephone Encounter - Bianka [...] and was just seen in ED in [place]. Did EKG, D-dimer, cbc and all WNL. [...] st Contact Info) Description 10/07/2024 3:00 PM MAIL AGENT Office Visit [facility] [address] [place] [address] Bianka Oneill, [facility] [address] [place] [address] documented as of this encounter Goals Goal Patient Goal Type Associated Problems Recent Progress Patient-Stated? Author just want to feel normal Behavioral Health On track(2023 4:08 PM MAIL AGENT) Yes Che Dickerson, VP OF MARKETING Note: Goal/Objective: Decrease anxious and depressive symptoms. Anticipated Time Frame for Goal Completion: 6 months Goal Reviewed with: patient Readiness to change: Ready to change Department associated with goal: [facility] Steps to achieve goal: [...] documented as of this encounter Care Teams Slab Installer Relationship Specialty Start Date End Date Bianka Oneill PAC [address] [place] [address] PCP - General Physician Contribution Solicitor 08/18/22 documented as of this encounter
--- OUTSIDE RECORDS SUMMARY | 2024-09-22 21:28 | XMS_ITS | Encounter Summary ---
Author Organization [facility] Address [address] [place] [address] Phone Care Team Providers Care Packer Name Role Phone Bianka Oneill Primary Care Provider + Suresh Gleason MD Unavailable Reason for Visit * Reason Comments Follow-up 6 month follow upHad a baby five months ago and was on vitmains that she wants to see if she needs again like iron. Encounter Details Date Type Department Care Team (Late st Contact Info) Description 07/04/2024 3:00 PM CDT Office Visit [facility] - [facility] [address] [place] [address] Bianka Oneill PAC [address] [place] [address] Anxiety (Primary Dx); Screening for diabetes mellitus; [...] for Depression. Patient declined resources. * Mary Ordonez RN - 07/04/2024 3:00 PM CDT Annalise [...] difficult Total Score - Questions 1-9: 5 .DANA Over the last 2 weeks, how often [...] st Contact Info) Description 10/07/2024 3:00 PM NAIL CUTTER Office Visit [facility] Medical [facility] [address] [place] [address] Bianka Oneill PAC [address] [place] [address] documented as of this encounter Goals Goal Patient Goal Type Associated Problems Recent Progress Patient-Stated? Author just want to feel normal Behavioral Health On track(2023 4:08 PM NAIL CUTTER) Yes Che Dickerson LCSW Note: Goal/Objective: Decrease anxious and depressive symptoms. Anticipated Time Frame for Goal Completion: 6 months Goal Reviewed with: patient Readiness to change: Ready to change Department associated with goal: [facility] Steps to [...] - 5.000 mIU/L 07/04/2024 5:45 PM CDT [facility] Blood Venipuncture / Unknown 07/04/2024 4:11 PM CDT 07/04/2024 5:01 PM CDT us Josie Fritcher PAC CHEMISTRY ORDERABLES Fin al Result Performing Organization Address City/[facility]/ZIP Co de Phone Number [facility] [address] [place] [address] * FOLIC ACID (FOLATE) (07/04/2024 4:11 PM CDT) Pathologist [facility] FOLATE 16.3 7.0 - 31.4 ng/mL 07/04/2024 5:58 PM CDT [facility] IS THE PATIENT REQUIRED TO BE FASTING? No 07/04/2024 5:58 PM CDT [facility] Blood Venipuncture / Unknown 07/04/2024 4:11 PM CDT 07/04/2024 5:02 PM CDT us Bianka Diasoctavioer PAC CHEMISTRY ORDERABLES Fin al Result Performing Organization Address City/[facility]/ZIP Co de Phone Number [facility] [address] [place] [address] * VITAMIN B12 (07/04/2024 4:11 PM CDT) [facility] VITAMIN B12 483 213 - 816 pg/mL 07/04/2024 5:58 PM CDT [facility] Blood Venipuncture / Unknown 07/04/2024 4:11 PM CDT 07/04/2024 5:02 PM CDT Bianka Albert Mai PAC CHEMISTRY ORDERABLES Fin al Result [facility] [address] [place] [address] * (ABNORMAL) IRON,TRANSFERN,CALC.TIBC,%SAT (07/04/2024 4:11 PM CDT) [facility] IRON 32 25 - 156 mcg/dL 07/04/2024 5:30 PM CDT [facility] TRANSFERRIN 366 180 - 382 mg/dL 07/04/2024 5:30 PM CDT [facility] TIBC, CALCULATED 458 265 - 497 mcg/dL 07/04/2024 5:30 PM CDT [facility] % SATURATION * 7(L) 15 - 62 % 07/04/2024 5:30 PM CDT [facility] Blood Venipuncture / Unknown 07/04/2024 4:11 PM CDT 07/04/2024 5:01 PM CDT us Bianka Oneill PAC CHEMISTRY ORDERABLES Fin al Result [facility] [address] [place] [address] * FERRITIN (07/04/2024 4:11 PM CDT) [facility] FERRITIN 5 5 - 204 ng/mL 07/04/2024 5:45 PM CDT [facility] Blood Venipuncture / Unknown 07/04/2024 4:11 PM CDT 07/04/2024 5:01 PM CDT us Bianka Oneill PAC CHEMISTRY ORDERABLES Fin al Result [facility] [address] [place] [address] * CMP (COMPREHENSIVE METABOLIC PANEL) (07/04/2024 4:11 PM CDT) SODIUM 142 136 - 145 mmol/L 07/04/2024 5:30 PM CDT [facility] POTASSIUM 4.1 3.5 - 5.1 mmol/L 07/04/2024 5:30 PM CDT [facility] CHLORIDE 107 98 - 107 mmol/L 07/04/2024 5:30 PM CDT [facility] CO2, VENOUS 25 22 - 30 mmol/L 07/04/2024 5:30 PM CDT [facility] ANION GAP 14.1 <18.0 mmol/L 07/04/2024 5:30 PM CDT [facility] GLUCOSE 81 70 - 99 mg/dL 07/04/2024 5:30 PM CDT [facility] BUN 9 5 - 18 mg/dL 07/04/2024 5:30 PM CDT [facility] CREATININE, BLOOD 0.72 0.60 - 1.00 mg/dL 07/04/2024 5:30 PM CDT [facility] BUN/CREATININE RATIO 13 12 - 20 ratio 07/04/2024 5:30 PM CDT [facility] TOTAL PROTEIN 7.6 6.3 - 8.2 g/dL 07/04/2024 5:30 PM CDT [facility] ALBUMIN 4.5 3.5 - 5.0 g/dL 07/04/2024 5:30 PM CDT [facility] A/G RATIO 1.5 1.0 - 2.2 07/04/2024 5:30 PM CDT [facility] CALCIUM 9.7 8.7 - 10.5 mg/dL 07/04/2024 5:30 PM CDT [facility] T BILI 0.2 0.2 - 1.2 mg/dL 07/04/2024 5:30 PM CDT [facility] SGOT (AST) 19 5 - 34 U/L 07/04/2024 5:30 PM CDT [facility] SGPT (ALT) 16 0 - 55 U/L 07/04/2024 5:30 PM CDT [facility] ALKALINE PHOSPHATASE 99 40 - 150 U/L 07/04/2024 5:30 PM CDT [facility] IS THE PATIENT REQUIRED TO BE FASTING? No 07/04/2024 5:30 PM CDT [facility] GFR, ESTIMATED >60 >=60 07/04/2024 5:30 PM CDT [facility] Comment: Creatinine Clearance is the preferred criteria for selecting drug dose adjustments in renally impaired patients. ??The GFR is provided as additional pertinent clinical information. GFR is reported in mL/min/1.73 sq m. Calculation based on the Chronic Kidney Disease Epidemiology Collaboration (CKD- EPI) equation refit without adjustment for race. GFR, EST. >60 >=60 024 5:30 PM CDT [facility] GFR, EST. NONAFRICAN >60 >=60 07/04/2024 5:30 PM CDT [facility] Blood Venipuncture / Unknown 07/04/2024 4:11 PM CDT 07/04/2024 5:01 PM CDT us Bianka Oneill PAC CHEMISTRY ORDERABLES Fin al Result [facility] [address] [place] [address] * HEMOGLOBIN A1C W/ ESTIMATED GLUCOSE (07/04/2024 4:11 PM CDT) HGB-A1C 5.5 4.0 - 6.0 % 07/04/2024 5:27 PM CDT [facility] Est Average Glucose 111.2 mg/dL 07/04/2024 5:27 PM CDT [facility] Blood Venipuncture / Unknown 07/04/2024 4:11 PM CDT 07/04/2024 5:01 PM CDT Narrative [facility] - 07/04/2024 5:27 PM CDT HEMOGLOBIN A1C: DIABETIC PATIENTS: WELL-CONTROLLED: ?? 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
--- OUTSIDE RECORDS SUMMARY | 2024-09-22 21:28 | XMS_ITS | Encounter Summary ---
Author Organization [employer] Care Team Providers Care Weatherization Specialist Name Role Phone Bianka Oneill YARED Primary [...] st Contact Info) Description 10/07/2024 3:00 PM BUSH REGENERATOR Office Visit [facility] Medical [facility] [address] [place] [address] Bianka Oneill PAC [address] [place] [address] documented as of this encounter Goals Goal Patient Goal Type Associated Problems Recent Progress Patient-Stated? Author just want to feel normal Behavioral Health On track(2023 4:08 PM BUSH REGENERATOR) Yes Che Dickerson LCSW Note: Goal/Objective: Decrease anxious and depressive symptoms. Anticipated Time Frame for Goal Completion: 6 months Goal Reviewed with: patient Readiness to change: Ready to change Department associated with goal: [facility] Steps to achieve goal: [...] documented as of this encounter Care Teams Weatherization Specialist Relationship Specialty Start Date End Date Bianka Oneill PAC [address] [place] [address] PCP - General Physician Grant Writer 08/18/22 documented as of this encounter
--- OUTSIDE RECORDS SUMMARY | 2024-09-22 21:28 | XMS_ITS | Encounter Summary ---
Author Organization [facility] Address [address] [place] [address] Phone Care Team Providers Care Bowling Pin Refinisher Name Role Phone Bianka Oneill Primary Care Provider + Reason for Visit * Auth/Cert (Routine) Specialty Diagnoses / Procedures Referred By Contac t Referred To Contact Diagnoses GALLBLADDER DISEASE Procedures LAPAROSCOPIC CHOLECYSTECTOMY WITH / WITHOUT CHOLANGIOGRAMS Suresh Gleason MD [address] [address] Phone: tel: fax: Referral ID Status Reason Start Date Expiration Date Visits Re quested Visits Authorized [id number] 1 1 Encounter Details Date Type Department Care Team (Late st Contact Info) Description 03/05/2024 8:30 AM CDT Anesthesia Event [facility] Periop [address] [place] [phone] Harry Guzman MD [address] [place] [address] Anesthesia Record Procedure Summary Procedure Name Responsible [...] Procedure Summary Date: 03/05/24 [facility] / [facility] Anesthesia Start: 829 Anesthesia Stop: 933 Procedure: [...] Date/Time: 03/05/24829 Procedure: LAPAROSCOPIC CHOLECYSTECTOMY (Abdomen) [facility] / [facility] Surgeons: Suresh Gleason MD Anesthesia Evaluation Anesthesia Plan ASA [address] [facility] ANESTHESIA PREOPERATIVE NOTE Date of Procedure: 03/05/2024 [...] MD lactated ringers infusion Intravenous Continuous Suresh Gleason MD 20 mL/hr at 03/05/24 0733 New [...] st Contact Info) Description 10/07/2024 3:00 PM BENCH WORKER Office Visit [facility] [address] [place] [phone] Bianka Oneill, PAC [address] [place] [address] documented as of this encounter Goals Goal Patient Goal Type Associated Problems Recent Progress Patient-Stated? Author just want to feel normal Behavioral Health On track(2023 4:08 PM BENCH WORKER) Yes Che Dickerson LCSW Note: Goal/Objective: [...] documented as of this encounter Care Teams Bowling Pin Refinisher Relationship Specialty Start Date End Date Bianka Oneill, PAC [address] [place] [address] PCP - General Physician Scheme Technician 08/18/22 documented as of this encounter
--- OUTSIDE RECORDS SUMMARY | 2024-09-22 21:28 | XMS_ITS | Encounter Summary ---
Author Organization [facility] Address [address] [place] [address] Phone Care Team Providers Care Spooler Operator Automatic Name Role Phone Bianka Oneill Primary Care Provider + Reason for Visit * Reason Comments Follow-up 3 month Encounter Details Date Type Department Care Team (Late st Contact Info) Description 05/29/2023 10:15 AM CDT Office Visit [facility] Medical Group - Family Medicine [facility] [address] [place] [address] Bianka Oneill PAC [address] [place] [address] Anxiety (Primary Dx); History of miscarriage; Amenorrhea; [...] no longer home alone Doing medical records, access [facility]. Currently , has history of 2 miscarriages [...] st Contact Info) Description 10/07/2024 3:00 PM SPINDLE SETTER Office Visit [facility] Medical [facility] [address] [place] [phone] Bianka Oneill PAC [address] [place] [address] documented as of this encounter Goals Goal Patient Goal Type Associated Problems Recent Progress Patient-Stated? Author just want to feel normal Behavioral Health On track(2023 4:08 PM SPINDLE SETTER) Yes Che Dickerson, DELIVERY TECH Note: Goal/Objective: Decrease anxious and depressive symptoms. Anticipated Time Frame for Goal Completion: 6 months Goal Reviewed with: patient Readiness to change: Ready to change Department associated with goal: [facility] Steps to [...] - 5.00 mIU/mL 05/31/2023 12:52 PM CDT [facility] Blood Venipuncture / Unknown 05/31/2023 9:44 AM CDT 05/31/2023 11:44 AM CDT Narrative [facility] - 05/31/2023 12:52 PM CDT HCG [...] Oneill PAC CHEMISTRY ORDERABLES Fin al Result [facility] [address] [place] [address] * (ABNORMAL) HCG BETA SUBUNIT SERUM QUANT (05/29/2023 11:20 AM CDT) HCG BETA SUBUNIT, QUANT 1,026.07(H ) 0.00 - 5.00 mIU/mL 05/29/2023 1:04 PM CDT [facility] Blood Venipuncture / Unknown 05/29/2023 11:20 AM CDT 05/29/2023 12:03 PM CDT Narrative [facility] - 05/29/2023 1:04 PM CDT HCG [...] 8,007 - 50,064 23 - 40 ? 7,582 - 05,577 The concentration of hCG in maternal serum [...] PAC CHEMISTRY ORDERABLES Fin al Result [facility] [address] [place] [address] documented in this encounter Visit Diagnoses Diagnosis [...] documented as of this encounter Care Teams Spooler Operator Automatic Relationship Specialty Start Date End Date Bianka Oneill, YARED [address] [place] [address] PCP - General Physician Line Welder 08/18/22 documented as of this encounter
--- OUTSIDE RECORDS SUMMARY | 2024-09-22 21:28 | XMS_ITS | Clinical Summary ---
Author Organization [facility] Address [address] [place] [address] Phone Care Team Providers Care Instructional Technology Teacher Name Role Phone Bianka Oneill Primary Care [...] Department Care Team Description 07/16/2024 [facility] [address] [place] [address] Bianka Oneill PAC Appointment; Sinus Problem 07/04/2024 3:00 PM CDT Office Visit [facility] - Family [facility] [address] [place] [address] Bianka Oneill PAC Anxiety (Primary Dx); Screening [...] st Contact Info) Description 10/07/2024 3:00 PM CALL BOX WIRER [facility] [address] [place] [address] Bianka Oneill, PAC [address] [place] [address] Health Maintenance Due Date Last Done Comments [...] normal Behavioral Health On track(2023 4:08 PM CALL BOX WIRER) Yes Che Dickerson, DIRECTOR MOTION PICTURE Note: Goal/Objective: Decrease anxious and depressive symptoms. Anticipated Time Frame for Goal Completion: 6 months Goal Reviewed with: patient Readiness to change: Ready to change Department associated with goal: [facility] Steps to [...] 156 mcg/dL 07/04/2024 5:30 PM CDT [facility] TRANSFERRIN 366 180 - 382 mg/dL 07/04/2024 5:30 PM CDT [facility] TIBC, CALCULATED 458 265 - 497 mcg/dL 07/04/2024 5:30 PM CDT [facility] % SATURATION * 7(L) 15 - 62 % 07/04/2024 5:30 PM CDT [facility] Blood Venipuncture / Unknown 07/04/2024 4:11 PM CDT 07/04/2024 5:01 PM CDT us Bianka Oneill PAC CHEMISTRY ORDERABLES Fin al Result Performing Organization Address City/[facility]/ZIP Co de Phone Number [facility] [address] [place] [address] * HEMOGLOBIN A1C W/ ESTIMATED GLUCOSE (07/04/2024 4:11 PM CDT) Pathologist [facility] HGB-A1C 5.5 4.0 - 6.0 % 07/04/2024 5:27 PM CDT [facility] Est Average Glucose 111.2 mg/dL 07/04/2024 5:27 PM CDT [facility] Blood Venipuncture / Unknown 07/04/2024 4:11 PM CDT 07/04/2024 5:01 PM CDT Narrative [facility] - 07/04/2024 5:27 PM CDT HEMOGLOBIN A1C: DIABETIC PATIENTS: WELL-CONTROLLED: ?? 6.2 - 7.0 INTERMEDIATE WELL-CONTROLLED: ??7.0 - 9.0 POORLY-CONTROLLED: ??>9.0 Bianka Oneill PAC CHEMISTRY ORDERABLES Fin al Result Performing Organization Address [facility] Co de Phone Number [facility] [address] [place] [address] * (ABNORMAL) CBC WITH AUTO DIFFERENTIAL (07/04/2024 4:11 PM CDT) Pathologist [facility] WBC 6.97 4.00 - 12.00 10(3)/mcL 07/04/2024 5:27 PM CDT [facility] RBC 5.29 3.80 - 5.30 10(6)/mcL 07/04/2024 5:27 PM CDT [facility] HEMOGLOBIN (HGB) 11.2(L) 12.0 - 15.8 g/dL 07/04/2024 5:27 PM CDT [facility] HEMATOCRIT (HCT) 37.6 36.0 - 47.0 % 07/04/2024 5:27 PM CDT [facility] MCV 71.1(L) 82.0 - 96.0 fL 07/04/2024 5:27 PM CDT [facility] MCH 21.2(L) 26.0 - 34.0 pg 07/04/2024 5:27 PM CDT [facility] MCHC 29.8(L) 31.0 - 36.0 g/dL 07/04/2024 5:27 PM CDT [facility] PLATELET COUNT 307 140 - 440 10(3)/mcL 07/04/2024 5:27 PM CDT [facility] RDW 19.5(H) 11.8 - 15.5 % 07/04/2024 5:27 PM CDT [facility] MPV 10.6 9.7 - 12.4 fL 07/04/2024 5:27 PM CDT [facility] NEUTROPHILS 61.8 47.0 - 73.0 % 07/04/2024 5:27 PM CDT [facility] LYMPHOCYTES 31.1 18.0 - 42.0 % 07/04/2024 5:27 PM CDT [facility] MONOCYTES 5.5 4.0 - 12.0 % 07/04/2024 5:27 PM CDT [facility] EOSINOPHILS 0.9 0.0 - 5.0 % 07/04/2024 5:27 PM CDT [facility] BASOPHILS 0.7 0.0 - 1.0 % 07/04/2024 5:27 PM CDT [facility] ABSOLUTE NEUTROPHILS 4.31 1.60 - 7.70 10(3)/mcL 07/04/2024 5:27 PM CDT [facility] ABSOLUTE LYMPHOCYTES 2.17 1.30 - 3.20 10(3)/mcL 07/04/2024 5:27 PM CDT [facility] ABSOLUTE MONOCYTES 0.38 0.20 - 1.00 10(3)/mcL 07/04/2024 5:27 PM CDT [facility] ABSOLUTE EOSINOPHIL 0.06 0.00 - 0.40 10(3)/mcL 07/04/2024 5:27 PM CDT [facility] ABSOLUTE BASOPHILS 0.05 0.00 - 0.10 10(3)/mcL 07/04/2024 5:27 PM CDT [facility] NRBC PER 100 WBC 0 07/04/20 5:27 PM CDT [facility] RESULTS ARE CONSISTENT WITH PERIPHERAL SMEAR REVIEW Yes 07/04/2024 5:27 PM CDT [facility] RBC MORPHOLOGY CONSISTENT WITH INDICES Yes 07/04/2024 5:27 PM CDT [facility] Blood Venipuncture / Unknown 07/04/2024 4:11 PM CDT 07/04/2024 5:02 PM CDT Bianka Oneill PAC HEMATOLOGY ORDERABLES Fi nal Result [facility] [address] [place] [address] * VITAMIN B12 (07/04/2024 4:11 PM CDT) Pathologist [facility] VITAMIN B12 483 213 - 816 pg/mL 07/04/2024 5:58 PM CDT [facility] Blood Venipuncture / Unknown 07/04/2024 4:11 PM CDT 07/04/2024 5:02 PM CDT Bianka Oneill PAC CHEMISTRY ORDERABLES Fin al Result [facility] [address] [place] [address] * THYROID STIMULATING HORMONE (TSH) (07/04/2024 4:11 PM CDT) TSH 1.882 0.300 - 5.000 mIU/L 07/04/2024 5:45 PM CDT [facility] Blood Venipuncture / Unknown 07/04/2024 4:11 PM CDT 07/04/2024 5:01 PM CDT Bianka Oneill PAC CHEMISTRY ORDERABLES Fin al Result [facility] [address] [place] [address] * FOLIC ACID (FOLATE) (07/04/2024 4:11 PM CDT) FOLATE 16.3 7.0 - 31.4 ng/mL 07/04/2024 5:58 PM CDT [facility] IS THE PATIENT REQUIRED TO BE FASTING? No 07/04/2024 5:58 PM CDT [facility] Blood Venipuncture / Unknown 07/04/2024 4:11 PM CDT 07/04/2024 5:02 PM CDT Bianka Oneill PAC CHEMISTRY ORDERABLES Fin al Result Performing Organization Address City/[facility]/ZIP Co de Phone Number [facility] [address] [place] [address] * FERRITIN (07/04/2024 4:11 PM CDT) FERRITIN 5 5 - 204 ng/mL 07/04/2024 5:45 PM CDT [facility] Blood Venipuncture / Unknown 07/04/2024 4:11 PM CDT 07/04/2024 5:01 PM CDT Bianka Oneill PAC CHEMISTRY ORDERABLES Fin al Result [facility] [address] [place] [address] * CMP (COMPREHENSIVE METABOLIC PANEL) (07/04/2024 4:11 PM CDT) SODIUM 142 136 - 145 mmol/L 07/04/2024 5:30 PM CDT [facility] POTASSIUM 4.1 3.5 - 5.1 mmol/L 07/04/2024 5:30 PM CDT [facility] CHLORIDE 107 98 - 107 mmol/L 07/04/2024 5:30 PM CDT [facility] CO2, VENOUS 25 22 - 30 mmol/L 07/04/2024 5:30 PM CDT [facility] ANION GAP 14.1 <18.0 mmol/L 07/04/2024 5:30 PM CDT [facility] GLUCOSE 81 70 - 99 mg/dL 07/04/2024 5:30 PM CDT [facility] BUN 9 5 - 18 mg/dL 07/04/2024 5:30 PM CDT [facility] CREATININE, BLOOD 0.72 0.60 - 1.00 mg/dL 07/04/2024 5:30 PM CDT [facility] BUN/CREATININE RATIO 13 12 - 20 ratio 07/04/2024 5:30 PM CDT [facility] TOTAL PROTEIN 7.6 6.3 - 8.2 g/dL 07/04/2024 5:30 PM CDT [facility] ALBUMIN 4.5 3.5 - 5.0 g/dL 07/04/2024 5:30 PM CDT [facility] A/G RATIO 1.5 1.0 - 2.2 07/04/2024 5:30 PM CDT [facility] CALCIUM 9.7 8.7 - 10.5 mg/dL 07/04/2024 5:30 PM CDT [facility] T BILI 0.2 0.2 - 1.2 mg/dL 07/04/2024 5:30 PM CDT [facility] SGOT (AST) 19 5 - 34 U/L 07/04/2024 5:30 PM CDT [facility] SGPT (ALT) 16 0 - 55 U/L 07/04/2024 5:30 PM CDT [facility] ALKALINE PHOSPHATASE 99 40 - 150 U/L 07/04/2024 5:30 PM CDT [facility] IS THE PATIENT REQUIRED TO BE FASTING? No 07/04/2024 5:30 PM CDT [facility] GFR, ESTIMATED >60 >=60 07/04/2024 5:30 PM CDT [facility] Comment: Creatinine Clearance is the preferred criteria for selecting drug dose adjustments in renally impaired patients. ??The GFR is provided as additional pertinent clinical information. GFR is reported in mL/min/1.73 sq m. Calculation based on the Chronic Kidney Disease Epidemiology Collaboration (CKD- EPI) equation refit without adjustment for race. GFR, EST. >60 >=60 024 5:30 PM CDT [facility] GFR, EST. NONAFRICAN >60 >=60 07/04/2024 5:30 PM CDT [facility] Blood Venipuncture / Unknown 07/04/2024 4:11 PM CDT 07/04/2024 5:01 PM CDT us Bianka Oneill PAC CHEMISTRY ORDERABLES Fin al Result [facility] [address] [place] [address] from Last 3 Months Additional Health Concerns Infection Onset Date Last Indicated MRSA 03/23/2023 03/23/2023 Insurance [address] [id number] [facility] [place] [phone] Care Teams Instructional Technology Teacher Relationship Specialty Start Date End Date Bianka Oneill PAC [address] [place] [address] PCP - General Physician Automatic Driller And Reamer 08/18/22 Suresh Gleason MD [address] [address] Consulting Physician General Surgery 03/11/24
--- OUTSIDE RECORDS SUMMARY | 2024-09-22 21:28 | XMS_ITS | Encounter Summary ---
Author Organization [email or web address] Care Team Providers Care Defect Repairer Glassware Name Role Phone Bianka Oneill YARED Primary [...] Questionnaire -2 Score 2 10/04/2023 3:18 PM FOUNDRY MOLDER Ruyle, Natalie D. , MA documented as of this encounter Plan of Treatment Upcoming Encounters Date Type Department Care Team (Late st Contact Info) Description 10/07/2024 3:00 PM FOUNDRY MOLDER Office Visit [facility] [address] [place] [address] Bianka Oneill PAC [address] [place] [address] documented as of this encounter Goals Goal Patient Goal Type Associated Problems Recent Progress Patient-Stated? Author just want to feel normal Behavioral Health On track(2023 4:08 PM FOUNDRY MOLDER) Yes Che Dickerson, HEAD WORKER Note: Goal/Objective: Decrease anxious and depressive symptoms. [...] documented as of this encounter Care Teams Defect Repairer Glassware Relationship Specialty Start Date End Date Bianka Oneill PAC [address] [place] [address] PCP - General Physician Deck Scaler 08/18/22 documented as of this encounter
--- OUTSIDE RECORDS SUMMARY | 2024-09-22 21:28 | XMS_ITS | Encounter Summary ---
Author Organization [facility] Address [address] [place] [address] Phone Care Team Providers Care Maintenance Scheduler Name Role Phone Bianka Oneill Primary Care Provider + Suresh Gleason MD Unavailable [phone] Encounter Details Date Type Department Care Team (Late st Contact Info) Description 10/05/2023 Behavioral Health Patient Survey [facility] Services [address] [place] [address] Che Dickerson, [facility] [address] [place] [address] Social History Tobacco Use Types Packs/Day Years [...] st Contact Info) Description 10/07/2024 3:00 PM VENTURE CAPITALIST Office Visit [facility] [address] [place] [address] Bianka Oneill PAC [address] [place] [address] documented as of this encounter Goals Goal Patient Goal Type Associated Problems Recent Progress Patient-Stated? Author just want to feel normal Behavioral Health On track(2023 4:08 PM VENTURE CAPITALIST) Yes Che Dickerson, MARBLE CHIP TERRAZZO WORKER Note: Goal/Objective: Decrease anxious and depressive symptoms. Anticipated Time Frame for Goal Completion: 6 months Goal Reviewed with: patient Readiness to change: Ready to change Department associated with goal: [facility] Steps to achieve goal: [...] documented as of this encounter Care Teams Maintenance Scheduler Relationship Specialty Start Date End Date Bianka Oneill PAC [address] [place] [address] PCP - General Physician Grades 7 8 Tutor 08/18/22 Suresh Gleason MD [address] [place] [address] Consulting Physician General Surgery 03/11/24 documented as of this encounter
--- OUTSIDE RECORDS SUMMARY | 2024-09-22 21:28 | XMS_ITS | Encounter Summary ---
Author Organization [facility] [employer] Care Team Providers Care Schedule Maker Name Role Phone Bianka Oneill Primary Care [...] st Contact Info) Description 10/07/2024 3:00 PM REGIONAL CONTROLLER Office Visit [facility] Medical [facility] [place] [place] [address] [place] [address] Bianka Oneill, PAC [address] [place] [address] documented as of this encounter Goals Goal Patient Goal Type Associated Problems Recent Progress Patient-Stated? Author just want to feel normal Behavioral Health On track(2023 4:08 PM REGIONAL CONTROLLER) Yes Che Dickerson, DRAWBENCH OPERATOR Note: Goal/Objective: Decrease anxious and depressive symptoms. Anticipated Time Frame for Goal Completion: 6 months Goal Reviewed with: patient Readiness to change: Ready to change Department associated with goal: [facility] Steps to [...] documented as of this encounter Care Teams Schedule Maker Relationship Specialty Start Date End Date Bianka Oneill PAC [address] [place] [address] PCP - General Physician Rn Medical Inpatient Services 08/18/22 documented as of this encounter
--- OUTSIDE RECORDS SUMMARY | 2024-09-22 21:28 | XMS_ITS | Encounter Summary ---
Author Organization [employer] Care Team Providers Care Marking Room Supervisor Name Role Phone Bianka Oneill YARED Primary [...] 5 05/17/2023 3:00 PM CDT Che Dickerson, ARCHITECTURE TECHNICIAN * Question Answer Date of Assessment Author [...] co ntrol worrying 3 05/17/2023 3:00 PM FAUSTINOT Che Dickerson LCSW Worrying too much about [...] st Contact Info) Description 10/07/2024 3:00 PM DETECTIVE Office Visit [facility] Medical [facility] [address] [place] [address] Bianka Oneill, [facility] [address] [place] [address] documented as of this encounter Goals Goal Patient Goal Type Associated Problems Recent Progress Patient-Stated? Author just want to feel normal Behavioral Health On track(2023 4:08 PM DETECTIVE) Yes Che Dickerson LCSW Note: Goal/Objective: Decrease anxious and depressive symptoms. Anticipated Time Frame for Goal Completion: 6 months Goal Reviewed with: patient Readiness to change: Ready to change Department associated with goal: [facility] Steps to achieve goal: [...] Total Score: 6 08/18/20 22 8:00 AM DETECTIVE documented as of this encounter Care Teams Marking Room Supervisor Relationship Specialty Start Date End Date Bianka Oneill PAC [address] [place] [address] PCP - General Physician Dehydrator 08/18/22 documented as of this encounter
--- OUTSIDE RECORDS SUMMARY | 2024-09-22 21:28 | XMS_ITS | Encounter Summary ---
Author Organization [facility] [employer] Care Team Providers Care Tax Compliance Officer Name Role Phone Bianka Oneill Primary Care [...] st Contact Info) Description 10/07/2024 3:00 PM INDUSTRIAL GAS SERVICER HELPER Office Visit [facility] Medical [facility] [address] [place] [address] Bianka Oneill, PAC [address] [place] [address] documented as of this encounter Goals Goal Patient Goal Type Associated Problems Recent Progress Patient-Stated? Author just want to feel normal Behavioral Health On track(2023 4:08 PM INDUSTRIAL GAS SERVICER HELPER) Yes Che Dickerson, GENOMICS SCIENTIST Note: Goal/Objective: Decrease anxious and depressive symptoms. Anticipated Time Frame for Goal Completion: 6 months Goal Reviewed with: patient Readiness to change: Ready to change Department associated with goal: [facility] Steps to achieve goal: [...] documented as of this encounter Care Teams Tax Compliance Officer Relationship Specialty Start Date End Date Bianka Oneill PAC [address] [place] [address] PCP - General Physician Junior Systems Analyst 08/18/22 documented as of this encounter
--- OUTSIDE RECORDS SUMMARY | 2024-09-22 21:28 | XMS_ITS | Encounter Summary ---
Author Organization [employer] Care Team Providers Care Electrical Service Technician Name Role Phone Bianka Oneill YARED Primary Care Provider + Suresh Gleason MD Unavailable [phone] Encounter Details Date Type Department Care Team [...] st Contact Info) Description 10/07/2024 3:00 PM PRODUCTION OR PLANT ENGINEER Office Visit [facility] Medical Group - [facility] [address] [place] [address] Bianka Oneill PAC [address] [place] [address] documented as of this encounter Goals Goal Patient Goal Type Associated Problems Recent Progress Patient-Stated? Author just want to feel normal Behavioral Health On track(2023 4:08 PM PRODUCTION OR PLANT ENGINEER) Yes Che Dickerson LCSW Note: Goal/Objective: Decrease anxious and depressive symptoms. Anticipated Time Frame for Goal Completion: 6 months Goal Reviewed with: patient Readiness to change: Ready to change Department associated with goal: [facility] Steps to achieve [...] documented as of this encounter Care Teams Electrical Service Technician Relationship Specialty Start Date End Date Bianka Oneill PAC [address] [place] [address] PCP - General Physician Beef Cattle Grazier 08/18/22 Suresh Gleason MD [address] [address] Consulting Physician General Surgery 03/11/24 documented as of this encounter
--- OUTSIDE RECORDS SUMMARY | 2024-09-22 21:28 | XMS_ITS | Encounter Summary ---
Author Organization [facility] Address [address] [place] [address] Phone Care Team Providers Care Lining Folder Name Role Phone Bianka Oneill Primary Care Provider + Reason for Visit * Reason Comments Anxiety Encounter Details Date Type Department Care Team (Late st Contact Info) Description 05/05/2023 11:30 AM CDT Telemedicine [facility] Medical Group - Family Medicine [facility] [address] [place] [address] Bianka Oneill PAC [address] [place] [address] Anxiety (Primary Dx) Social History Tobacco Use [...] this encounter Progress Notes * Sandra Lira, DIE TURNER - 05/05/2023 11:30 AM CDT Annalise Vogt, [...] st Contact Info) Description 10/07/2024 3:00 PM THERAPEUTIC MENTOR Office Visit [facility] [place] [address] [place] [address] Bianka Oneill PAC [address] [place] [address] documented as of this encounter Visit Diagnoses Diagnosis Anxiety- Primary Anxiety state, unspecified documented in this encounter Additional Health Concerns Infection Onset Date Last Indicated Resolved Time MRSA 03/23/2023 03/23/2023 Assessment Noted Time PHQ-9 Depression Total Score: 6 08/18/20 8:00 AM THERAPEUTIC MENTOR documented as of this encounter Care Teams Lining Folder Relationship Specialty Start Date End Date Bianka Oneill PAC [address] [place] [address] PCP - General Physician Occupational Safety Specialist 08/18/22 documented as of this encounter
--- OUTSIDE RECORDS SUMMARY | 2024-09-22 21:28 | XMS_ITS | Encounter Summary ---
Author Organization [facility] Address [address] [place] [address] Phone Care Team Providers Care Director Trade Name Role Phone Bianka Oneill Primary Care Provider + Suresh Gleason MD Unavailable [phone] Reason for Visit * Reason Onset Date Comments Appointment 07/16/2024 Sinus Problem 07/16/2024 Encounter Details Date Type Department Care Team (Late st Contact Info) Description 07/16/2024 Nurse Triage [facility] [address] [place] [address] Bianka Oneill, PAC [address] [place] [address] Appointment; Sinus Problem Social History Tobacco Use [...] agreeable to Cali[employer]o KRISHNAMURTHY today. Discussed utilizing [employer] to: view test results - See care [...] be seen Protocols used: Sinus Pain or [id number]-ID * Telephone Encounter - Renan Singh - [...] st Contact Info) Description 10/07/2024 3:00 PM HEDIS SPECIALIST Office Visit [facility] Medical [facility] [address] [place] [address] Bianka Oneill, YARED [address] [place] [address] documented as of this encounter Goals Goal Patient Goal Type Associated Problems Recent Progress Patient-Stated? Author just want to feel normal Behavioral Health On track(2023 4:08 PM HEDIS SPECIALIST) Yes Che Dickerson, SOLAR DESIGN ENGINEER Note: Goal/Objective: Decrease anxious and depressive symptoms. Anticipated Time Frame for Goal Completion: 6 months Goal Reviewed with: patient Readiness to change: Ready to change Department associated with goal: [facility] Steps to achieve [...] as of this encounter Care Teams Director Trade Relationship Specialty Start Date End Date Bianka Oneill PAC [address] [place] [address] PCP - General Physician Digital Hardware Design Engineer 08/18/22 Suresh Gleason MD [address] [address] Consulting Physician General Surgery 03/11/24 documented as of this encounter
--- OUTSIDE RECORDS SUMMARY | 2024-09-22 21:28 | XMS_ITS | Encounter Summary ---
Author Organization [facility] Address [address] [place] [address] Phone Care Team Providers Care Hospitality Aide Name Role Phone Bianka Oneill PAC Primary Care Provider + Suresh Gleason MD Unavailable Encounter Details Date Type Department Care Team (Late st Contact Info) Description 09/04/2023 Telephone [facility] Oncology Services [address] [place] [address] Pepper Reyes Letitia, PAC [address] [place] [address] Social History Tobacco Use Types Packs/Day Years [...] our office on an as needed basis. LY CRIB ATTENDANT documented in this encounter Plan of Treatment Upcoming Encounters Date Type Department Care Team (Late st Contact Info) Description 10/07/2024 3:00 PM SUPPLY CRIB ATTENDANT Office Visit [facility] Medical Group - [facility] [place] [address] [place] [address] Bianka Oneill, PAC [address] [place] [address] documented as of this encounter Goals Goal Patient Goal Type Associated Problems Recent Progress Patient-Stated? Author just want to feel normal Behavioral Health On track(2023 4:08 PM SUPPLY CRIB ATTENDANT) Yes Che Dickerson, WHIRLEY OPERATOR Note: Goal/Objective: Decrease anxious and depressive [...] documented as of this encounter Care Teams Hospitality Aide Relationship Specialty Start Date End Date Bianka Oneill PAC [address] [place] [address] PCP - General Physician Score Caller 08/18/22 Suresh Gleason MD [address] [id number] Consulting Physician General Surgery 03/11/24 documented as of this encounter
--- OUTSIDE RECORDS SUMMARY | 2024-09-22 21:28 | XMS_ITS | Encounter Summary ---
Author Organization [facility] [employer] Care Team Providers Care Dry House Attendant Name Role Phone Bianka Oneill Primary [...] st Contact Info) Description 10/07/2024 3:00 PM COOK HELPER PASTRY Office Visit [facility] Medical [facility] [address] [place] [address] Bianka Oneill PAC [address]2 [place] [address] documented as of this encounter Visit Diagnoses Not on filedocumented in this encounter Additional Health Concerns Infection Onset Date Last Indicated Resolved Time MRSA 03/23/2023 03/23/2023 Assessment Noted Time PHQ-9 Depression Total Score: 6 08/18/20 22 8:00 AM COOK HELPER PASTRY documented as of this encounter Care Teams Dry House Attendant Relationship Specialty Start Date End Date Bianka Oneill PAC [address] [place] [address] PCP - General Physician Accounts Payable Supervisor 08/18/22 documented as of this encounter
--- OUTSIDE RECORDS SUMMARY | 2024-09-22 21:28 | XMS_ITS | Encounter Summary ---
Author Organization [facility] Address [address] [place] [address] Phone Care Team Providers Care Bladder Trimmer Name Role Phone Bianka Oneill Primary Care Provider + Reason for Referral * Radiology Services (Routine) - Closed Specialty Diagnoses / Procedures Referred By Contac t Referred To Contact Radiology Diagnoses Generalized abdominal pain Procedures US ABDOMEN COMPLETE Bianka Oneill PAC [address] [place] [address] Phone: tel: fax: Referral ID Status Reason Start Date Expiration Date Visits Re quested Visits Authorized [id number] Closed 04/17/2023 1 1 Reason for Visit * Radiology Services (Routine) - Closed Specialty Diagnoses / Procedures Referred By Contac t Referred To Contact Radiology Diagnoses Generalized abdominal pain Procedures US ABDOMEN COMPLETE Bianka Oneill PAC [address] [place] [address] Phone: tel: fax: Referral ID Status Reason Start Date Expiration Date Visits Re quested Visits Authorized [id number] Closed 04/17/2023 1 1 Encounter Details Date Type Department Care Team (Latest Contact Info) Description 06/03/2023 7:40 AM CDT - 06/03/2023 11:59 PM CDT Hospital Encounter [facility] Ultrasound [address] [place] [address] Bianka Oneill, PAC [address] [place] [address] Discharge Disposition: Discharged to home or Selfcare [...] st Contact Info) Description 10/07/2024 3:00 PM DEFECT REPAIRER GLASSWARE Office [facility] [address] [place] [address] Bianka Oneill, YARED [address] [place] [address] documented as of this encounter Goals Goal Patient Goal Type Associated Problems Recent Progress Patient-Stated? Author just want to feel normal Behavioral Health On track(2023 4:08 PM DEFECT REPAIRER GLASSWARE) Yes Che Dickerson, ADJUSTO WRITER OPERATOR Note: Goal/Objective: Decrease anxious and depressive [...] AM T: ??06/03/2023 11:19 AM Report ID: [id number] Reading Location: ??[id number] Procedure Note Fernando Garcia Jr., MD - [...] Fernando Garcia M.D. CH: FELISHA Report ID: [id number] Reading Location: [place] [address] IMPRESSION: Negative abdominal ultrasound. us Bianka Oneill PAC IMG US ORDERABLES Final Result documented in this encounter Visit Diagnoses Diagnosis Generalized abdominal pain Abdominal pain, generalized documented in this encounter Additional Health Concerns Infection Onset Date Last Indicated Resolved Time MRSA 03/23/2023 03/23/2023 Assessment Noted Time PHQ-9 Depression Total Score: 0 05/29/20 23 10:33 AM CDT documented as of this encounter Care Teams Bladder Trimmer Relationship Specialty Start Date End Date Bianka Oneill PAC [address] [place] [address] PCP - General Physician Application Administrator 08/18/22 documented as of this encounter
--- OUTSIDE RECORDS SUMMARY | 2024-09-22 21:28 | XMS_ITS | Encounter Summary ---
Author Organization [facility] [employer] Care Team Providers Care Faculty Instructor Name Role Phone Bianka Oneill Primary Care [...] st Contact Info) Description 10/07/2024 3:00 PM DAMPPROOFER Office Visit [facility] Medical [facility] [address] [place] [address] Bianka Oneill PAC [address] [place] [address] documented as of this encounter Goals Goal Patient Goal Type Associated Problems Recent Progress Patient-Stated? Author just want to feel normal Behavioral Health On track(2023 4:08 PM DAMPPROOFER) Yes Che Dickerson, FUEL CELL TECHNICIAN Note: Goal/Objective: Decrease anxious and depressive symptoms. [...] documented as of this encounter Care Teams Faculty Instructor Relationship Specialty Start Date End Date Bianka Oneill PAC [address] [place] [address] PCP - General Physician Substance Abuse Clinician 08/18/22 documented as of this encounter
--- OUTSIDE RECORDS SUMMARY | 2024-09-22 21:28 | XMS_ITS | Encounter Summary ---
Author Organization [facility] Address [address] [place] [address] Phone Care Team Providers Care Upholstery Restorer Name Role Phone Bianka Oneill Primary Care Provider + Reason for Visit * Reason Comments Anxiety * Auth/Cert (Routine) Specialty Diagnoses / Procedures Referred By Contac t Referred To Contact Referral ID Status Reason Start Date Expiration Date Visits Re quested Visits Authorized [id number] 1 1 Encounter Details Date Type Department Care Team (Latest Contact Info) Description 07/26/2023 11:15 AM MIDDLE SCHOOL MUSIC TEACHER Outpatient Clinic Visit [facility] Behavioral Health Services 1 [place] [address] Che Dickerson, POT PRESS OPERATOR [address] [place] [address] Anxiety (Primary Dx) Discharge Disposition: Discharged to [...] Coronavirus/COVID-19? No / Unsure 07/26/2023 11:17 AM MIDDLE SCHOOL MUSIC TEACHER documented as of this encounter Progress Notes * Che Dickerson, POT PRESS OPERATOR - 07/26/2023 11:15 AM CST Images from the original note were not included. [facility] BEHAVIORAL HEALTH CLINICAL PROGRESS NOTE NAME: [...] change Department associated with goal: [facility] Steps to achieve goal: [...] for support and guidance. CHE DICKERSON LCSW LE SCHOOL MUSIC TEACHER documented in this encounter Plan of Treatment Upcoming Encounters Date Type Department Care Team (Late st Contact Info) Description 10/07/2024 3:00 PM MIDDLE SCHOOL MUSIC TEACHER Office Visit [facility] [address] [place] [address] Bianka Oneill, [facility] [address] [place] [address] documented as of this encounter Goals Goal Patient Goal Type Associated Problems Recent Progress Patient-Stated? Author just want to feel normal Behavioral Health On track(2023 4:08 PM MIDDLE SCHOOL MUSIC TEACHER) Yes Che Dickerson LCSW Note: Goal/Objective: Decrease anxious and depressive symptoms. Anticipated Time Frame for Goal Completion: 6 months Goal Reviewed with: patient Readiness to change: Ready to change Department associated with goal: [facility] Steps to achieve goal: [...] documented as of this encounter Care Teams Upholstery Restorer Relationship Specialty Start Date End Date Bianka Oneill PAC [address] [place] [address] PCP - General Physician Scaffold Erector 08/18/22 documented as of this encounter
--- OUTSIDE RECORDS SUMMARY | 2024-09-22 21:28 | XMS_ITS | Encounter Summary ---
Author Organization [facility] [employer] Care Team Providers Care Chief Engineer Waterworks Name Role Phone Bianka Oneill Primary Care [...] st Contact Info) Description 10/07/2024 3:00 PM PLANNED GIVING OFFICER Office Visit [facility] - [facility] [address] [place] [address] Bianka Oneill PAC [address] [place] [address] documented as of this encounter Goals Goal Patient Goal Type Associated Problems Recent Progress Patient-Stated? Author just want to feel normal Behavioral Health On track(2023 4:08 PM PLANNED GIVING OFFICER) Yes Che Dickerson, BAG HANGER Note: Goal/Objective: Decrease anxious and depressive symptoms. Anticipated Time Frame for Goal Completion: 6 months Goal Reviewed with: patient Readiness to change: Ready to change Department associated with goal: [facility] BE[facility]AVIORAL HE[facility] SERVICES Steps [...] as of this encounter Care Teams Chief Engineer Waterworks Relationship Specialty Start Date End Date Bianka Oneill PAC [address] [place] [address] PCP - General Physician Leave Coordinator 08/18/22 Suresh Gleason MD [address] [address] Consulting Physician General Surgery 03/11/24 documented as of this encounter
--- OUTSIDE RECORDS SUMMARY | 2024-09-22 21:28 | XMS_ITS | Encounter Summary ---
Author Organization [facility] Address [address] [place] [address] Phone Care Team Providers Care Band Leader Name Role Phone Bianka Oneill Primary Care Provider + Reason for Visit * Reason Comments Follow-up 3 mo fu Encounter Details Date Type Department Care Team (Late st Contact Info) Description 10/04/2023 3:15 PM FACTORY ASSEMBLER Office Visit [facility] - Family [facility] [address] [place] [phone] Bianka Oneill PAC [address] [place] [address] Nausea and vomiting in (Primary Dx); Abscess; [...] Comments Blood Pressure 128/82 10/04/2023 3:15 PM FACTORY ASSEMBLER Pulse 77 10/04/2023 3:15 PM FACTORY ASSEMBLER Temperature 35.8 ??C (96.5 ??F) 10/04/2023 3:15 PM CS T Respiratory Rate - - Oxygen Saturation 99% 10/04/2023 3:15 PM FACTORY ASSEMBLER Inhaled Oxygen Concentration - - Weight 112 kg (247 lb) 10/04/2023 3:15 PM FACTORY ASSEMBLER Height 160 cm (5' 3 ) 10/04/2023 3:15 PM FACTORY ASSEMBLER Body Mass Index 43.75 10/04/2023 3:15 PM FACTORY ASSEMBLER documented in this encounter Functional Status * Question Answer Date of Assessment Author Little interest or pleasure in doing things Several days 10/04/2023 3:18 PM FACTORY ASSEMBLER Natalie Navarro MA Feeling down, depressed, or hopeless Several days 10/04/2023 3:18 PM FACTORY ASSEMBLER Natalie Navarro MA * Over the past 2 weeks, how often have you been bothered by any of the following problems? Question Answer Date of Assessment Author Patient Health Questionnaire -2 Score 2 10/04/2023 3:18 PM FACTORY ASSEMBLER Natalie Navarro MA documented as of this encounter Patient Instructions * Patient Instructions* Bianka Oneill PAC - 10/04/2023 3:15 PM FACTORY ASSEMBLER Check with ob if can take clindamycin Hida scan in ORY ASSEMBLER ORY ASSEMBLER documented in this encounter Progress Notes * [...] been addressed with the patient today: Flu ORY ASSEMBLER * Bianka Oneill PAC - 10/04/2023 3:15 PM CST Subjective: Subjective Having nausea and occasional vomiting with currently 24 weeks, Had to wear heart monitor due to elevated heart rate 160, had elevated blood pressure Has appointment with OB [place] has appointment on 10/10/23 with ob Having [...] OB about treatment options if no improvements ORY ASSEMBLER documented in this encounter Plan of Treatment Upcoming Encounters Date Type Department Care Team (Late st Contact Info) Description 10/07/2024 3:00 PM FACTORY ASSEMBLER Office Visit [facility] - [facility] [address] [place] [address] Bianka Oneill PAC [address] [place] [address] documented as of this encounter Goals Goal Patient Goal Type Associated Problems Recent Progress Patient-Stated? Author just want to feel normal Behavioral Health On track(2023 4:08 PM FACTORY ASSEMBLER) Yes Che Dickerson, TIPPLE OPERATOR Note: Goal/Objective: Decrease anxious and depressive symptoms. Anticipated Time Frame for Goal Completion: 6 months Goal Reviewed with: patient Readiness to change: Ready to change Department associated with goal: [facility] Steps to achieve goal: [...] documented as of this encounter Care Teams Band Leader Relationship Specialty Start Date End Date Bianka Oneill PAC [address] [place] [address] PCP - General Physician Vp Informatics 08/18/22 documented as of this encounter
--- OUTSIDE RECORDS SUMMARY | 2024-09-22 21:28 | XMS_ITS | Encounter Summary ---
Author Organization [facility] Address [address] [place] [address] Phone Care Team Providers Care Garbage Collector Driver Name Role Phone Bianka Oneill Primary Care Provider + Reason for Visit * Reason Comments Anxiety * Auth/Cert (Routine) Specialty Diagnoses / Procedures Referred By Contac t Referred To Contact Referral ID Status Reason Start Date Expiration Date Visits Re quested Visits Authorized [id number] 1 1 Encounter Details Date Type Department Care Team ([facility] st Contact Info) Description 08/09/2023 8:30 AM LONE LEAD LINEMAN Telemedicine [facility] Behavioral Health Services 1 [place] [address] Che Dickerson, MACHINE QUILT STUFFER [address] [place] [address] Anxiety (Primary Dx) Discharge Disposition: Discharged to [...] Coronavirus/COVID-19? No / Unsure 07/26/2023 11:17 AM LONE LEAD LINEMAN documented as of this encounter Progress Notes * Che Dickerson, MACHINE QUILT STUFFER - 08/09/2023 8:30 AM CST Images from the original note were not included. [facility] BEHAVIORAL HEALTH CLINICAL PROGRESS NOTE NAME: [...] for support and guidance. CHE DICKERSON LCSW LEAD LINEMAN documented in this encounter Plan of Treatment Upcoming Encounters Date Type Department Care Team (Late st Contact Info) Description 10/07/2024 3:00 PM LONE LEAD LINEMAN Office Visit [facility] [address] [place] [address] Bianka Oneill, [facility] [address] [place] [address] documented as of this encounter Goals Goal Patient Goal Type Associated Problems Recent Progress Patient-Stated? Author just want to feel normal Behavioral Health On track(2023 4:08 PM LONE LEAD LINEMAN) Yes Che Dickerson LCSW Note: Goal/Objective: Decrease [...] as of this encounter Care Teams Garbage Collector Driver Relationship Specialty Start Date End Date Bianka Oneill PAC [address] [place] [address] PCP - General Physician Opera Singer 08/18/22 documented as of this encounter
--- OUTSIDE RECORDS SUMMARY | 2024-09-22 21:28 | XMS_ITS | Encounter Summary ---
Author Organization [facility] [employer] Care Team Providers Care Customer Service Advocate Name Role Phone Bianka Oneill Primary Care [...] st Contact Info) Description 10/07/2024 3:00 PM WAX ENGRAVER Office Visit [facility] Medical Group - Family Medicine [facility] [address]2 [place] [address] Bianka Oneill PAC [address] [place] [address] documented as of this encounter Goals Goal Patient Goal Type Associated Problems Recent Progress Patient-Stated? Author just want to feel normal Behavioral Health On track(2023 4:08 PM WAX ENGRAVER) Yes Che Dickerson, HEEL BURNISHER Note: Goal/Objective: Decrease anxious and depressive symptoms. Anticipated Time Frame for Goal Completion: 6 months Goal Reviewed with: patient Readiness to change: Ready to change Department associated with goal: [facility] Steps to achieve goal: [...] as of this encounter Care Teams Customer Service Advocate Relationship Specialty Start Date End Date Bianka Oneill PAC [address] [place] [address] PCP - General Physician Utilization Management Um Nurse 08/18/22 documented as of this encounter
--- OUTSIDE RECORDS SUMMARY | 2024-09-22 21:28 | XMS_ITS | Encounter Summary ---
Author Organization [facility] Address [address] [place] [address] Phone Care Team Providers Care Radio Mechanic Name Role Phone Bianka Oneill Primary Care Provider + Reason for Visit * Auth/Cert (Routine) Specialty Diagnoses / Procedures Referred By Contac t Referred To Contact Diagnoses GALLBLADDER DISEASE Procedures LAPAROSCOPIC CHOLECYSTECTOMY WITH / WITHOUT CHOLANGIOGRAMS Suresh Gleason MD [address] [address] Phone: tel: fax: Referral ID Status Reason Start Date Expiration Date Visits Re quested Visits Authorized [id number] 1 1 Encounter Details Date Type Department Care Team (Late st Contact Info) Description 03/05/2024 7:12 AM CDT - 03/05/2024 11:45 AM CDT Hospital Encounter [facility] Preop/Pacu II 1 [place] [address] Suresh Gleason MD [address] [address] Discharge Disposition: Discharged to home [...] Everywhere. * Minimally Invasive Cholecystectomy Care After Wxzh-vs-Ccgr ([place]) documented in this encounter Medications at Time [...] the report from the CT scan from [facility]. We will upload images to our system. [...] observation. Information booklet regarding cholecystectomy from the [employer] was also provided. Total time spent on this encounter on this date of service, including pre-visit review of separately obtained history, zxcl-gm-bxzt interaction performing medically appropriate physical exam, patientcounseling/education, interpretation of diagnostic results, care coordination and documentation was45 minutes. Subjective: HPI: Annalise Vogt is a 18 y.o. female who I was asked to see by Bianka Oneill, YARED for possible gallbladder disease. She is a very pleasant lady, she had a baby recently. 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 She has been having epigastric abdominal pain that radiates to her back for the last couple of months. Sometimes associated with greasy food intake but sometimes not. The pain comes and goes is not all the time. Sometimes associated with nausea but no emesis. She denies any history priorabdominal operations. She did visit [facility] and a CT scan was performed [...] No complaints, VSS. Pt. Instructed to turn generation technician light when dressed. Pt. To be wheeled [...] Pain and Promote Comfort Flowsheets (Taken 03/05/2024 0773 by MOO) Pain Management Interventions: quiet environment facilitated Intervention: Provide Person-Centered Care Flowsheets (Taken 03/05/2024 0704 by ELVIRA) Trust Relationship/Rapport: care explained choices [...] videos and all your education online visit, [email or web address] or scan this QR code with your [...] Follow these instructions at home: Medicines Take kimg-kvg-excbbrm and prescription medicines only as told by [...] cannot use soap and water, use hand machine stuffer automatic. ? Change your bandage. ? Leave stitches [...] 2009-06-13 Document Updated: 2022-03-08 Document Reviewed: 2022-03-08 [employer] Patient Education ? 2023 [employer]. * Plan of Care - Moo Moy [...] Mathis RN - 03/01/2024 12:38 PM CDT [facility] ADULT TEACH[facility] Patient Name: Annalise Vogt : 2005 CSN#: [id number] Person Educated Patient Ready to Learn Yes [...] be allowed to accompany you to the [facility]. No children under theage of 16 will be allowed in the [facility] unless they are the patient. 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 documented in this encounter Plan of Treatment Upcoming Encounters Date Type Department Care Team (Late st Contact Info) Description 10/07/2024 3:00 PM NUCLEAR LICENSING ENGINEER Office Visit [facility] Medical [facility] [address] [place] [address] Bianka Oneill, PAC [address]2 [place] [address] documented as of this encounter Goals Goal Patient Goal Type Associated Problems Recent Progress Patient-Stated? Author just want to feel normal Behavioral Health On track(2023 4:08 PM NUCLEAR LICENSING ENGINEER) Yes Che Dickerson, CEMENT AND CONCRETE PLANT WORKER Note: Goal/Objective: Decrease anxious and depressive symptoms. Anticipated Time Frame for Goal Completion: 6 months Goal Reviewed with: patient Readiness to change: Ready to change Department associated with goal: [facility] Steps to achieve [...] Case Report Surgical Pathology Report ? Case: [id number] ? Authorizing Provider: ??Suresh Gleason, ??Collected: ? 03/05/2024 08:09 AM ? MD ? Ordering Location: ? [facility] ? Received: ?03/05/2024 10:23 AM ? [facility] ? Main OR ? Pathologist: ? Luis Pedraza, ? Specimen: ?Gallbladder, GALLBLADDER ? 03/06/2024 7:59 AM CDT [facility] FINAL DIAGNOS[facility] Gallbladder, cholecystectomy: - Chronic cholecystitis - Cholesterolosis 03/06/2024 7:59 AM CDT [facility] Pre-Operative Diagnosis GALLBLADDER DISEASE 03/06/2024 7:59 AM CDT [facility] Gross Description A. GALLBLADDER The specimen [...] up to 0.2 cm in greatest thickness. Quill Layer sample of the cystic duct and neck along with the body and fundus are submitted in cassette A1. /sb Total time of fixation is 13 hours, 37 minutes. 03/06/2024 7:59 AM CDT [facility] Microscopic Description There are no obvious stones in the lumen of the gallbladder or in the container in which it is received. Quill Layer sections of the wall show benign-appearing biliary epithelium with Rokitansky Aschoff sinuses and subepithelial foamy macrophages. 03/06/2024 7:59 AM CDT [facility] Tissue GALLBLADDER STRUCTURE / Unknown 03/05/2024 8:09 AM CDT 03/05/2024 10:23 AM CDT us Suresh Gleason MD PATHOLOGY/CYTOLOGY OR DERABLES Final Result [facility] #1 [place] [address] * POCT Urine HCG () (03/05/2024 7:20 AM CDT) POC URINE Negative POC URINE CONTROL Pleasure Craft [place] Urine 03/05/2024 7:20 AM CDT Suresh [...] 2) increasing dosage, or 3) changing to MIDDLE SCHOOL ART TEACHER. Give 1 Tablet for moderate pain rating [...] 2) increasing dosage, or 3) changing to MIDDLE SCHOOL ART TEACHER. Give 1 Tablet for moderate pain rating [...] documented as of this encounter Care Teams Radio Mechanic Relationship Specialty Start Date End Date Bianka Oneill PAC [address] [place] [address] PCP - General Physician Human Resources Assistant 08/18/22 documented as of this encounter
--- OUTSIDE RECORDS SUMMARY | 2024-09-22 21:28 | XMS_ITS | Encounter Summary ---
Author Organization [facility] Address [address] [place] [address] Phone Care Team Providers Care Antenna Engineer Name Role Phone Bianka Oneill Primary Care Provider + Reason for Visit * Auth/Cert (Routine) Specialty Diagnoses / Procedures Referred By Contac t Referred To Contact Referral ID Status Reason Start Date Expiration Date Visits Re quested Visits Authorized [id number] 1 1 Encounter Details Date Type Department Care Team ([facility] Contact Info) Description 07/06/2023 9:00 AM CDT Telemedicine [facility] Behavioral Health Services 1 [place] [address] Che Dickerson, MAINTENANCE ANALYST [address] [place] [address] Anxiety (Primary Dx) Discharge Disposition: Discharged to [...] this encounter Progress Notes * Che Dickerson, MAINTENANCE ANALYST - 07/06/2023 9:00 AM CDT Images from the original note were not included. [facility] BEHAVIORAL HEALTH CLINICAL PROGRESS NOTE NAME: [...] st Contact Info) Description 10/07/2024 3:00 PM WATER TEAM LEADER Office Visit [facility] [place] [address] Bianka Oneill, YARED [address] [place] [address] documented as of this encounter Goals Goal Patient Goal Type Associated Problems Recent Progress Patient-Stated? Author just want to feel normal Behavioral Health On track(2023 4:08 PM WATER TEAM LEADER) Yes Che Dickerson LCSW Note: Goal/Objective: [...] documented as of this encounter Care Teams Antenna Engineer Relationship Specialty Start Date End Date Bianka Oneill PAC [address] [place] [address] PCP - General Physician Manager Military 08/18/22 documented as of this encounter
--- OUTSIDE RECORDS SUMMARY | 2024-09-22 21:28 | XMS_ITS | Encounter Summary ---
Author Organization [facility] Address [address] [place] [address] Phone Care Team Providers Care Laundry Room Attendant Name Role Phone Bianka Oneill Primary Care Provider + Encounter Details Date Type Department Care Team (Latest Contact Info) Description 03/01/2024 8:09 AM CDT - 03/01/2024 11:59 PM CDT Hospital Encounter [facility] [address] [place] [address] Provider, Not On File [place] [...] st Contact Info) Description 10/07/2024 3:00 PM BASKETBALLS AND FOOTBALLS REVERSER Office Visit [facility] [address]2 [place] [address] Bianka Oneill PAC [address] [place] [address] documented as of this encounter Goals Goal Patient Goal Type Associated Problems Recent Progress Patient-Stated? Author just want to feel normal Behavioral Health On track(2023 4:08 PM BASKETBALLS AND FOOTBALLS REVERSER) Yes Che Dickerson, CLINICAL TRIALS SPECIALIST Note: Goal/Objective: Decrease anxious and depressive symptoms. Anticipated Time Frame for Goal Completion: 6 months Goal Reviewed with: patient Readiness to change: Ready to change Department associated with goal: [facility] Steps to achieve goal: [...] documented as of this encounter Care Teams Laundry Room Attendant Relationship Specialty Start Date End Date Bianka Oneill PAC [address] [place] [address] PCP - General Physician Wastewater Supervisor 08/18/22 documented as of this encounter
--- OUTSIDE RECORDS SUMMARY | 2024-09-22 21:28 | XMS_ITS | Encounter Summary ---
Author Organization [facility] [employer] Care Team Providers Care Photographic Supervisor Name Role Phone Bianka Oneill Primary [...] st Contact Info) Description 10/07/2024 3:00 PM RIGGING WORKER Office Visit [facility] Medical Group - Family Medicine [facility] #2 [place] [phone] Bianka Oneill PAC [address] [place] [address] documented as of this encounter Goals Goal Patient Goal Type Associated Problems Recent Progress Patient-Stated? Author just want to feel normal Behavioral Health On track(2023 4:08 PM RIGGING WORKER) Yes Che Dickerson, THEATRICAL PERFORMER Note: Goal/Objective: Decrease anxious and depressive symptoms. Anticipated Time Frame for Goal Completion: 6 months Goal Reviewed with: patient Readiness to change: Ready to change Department associated with goal: [facility] Steps to achieve [...] documented as of this encounter Care Teams Photographic Supervisor Relationship Specialty Start Date End Date Bianka Oneill PAC [address] [place] [address] PCP - General Physician Ethylbenzene Converter Helper 08/18/22 documented as of this encounter
--- OUTSIDE RECORDS SUMMARY | 2024-09-22 21:28 | XMS_ITS | Encounter Summary ---
Author Organization [facility] Address [address] [place] [address] Phone Care Team Providers Care Business Development Name Role Phone Bianka Oneill Primary Care Provider + Reason for Referral * Other (Routine) - Closed Specialty Diagnoses / Procedures Referred By Contac t Referred To Contact General Surgery Diagnoses Gallbladder disease Procedures GENERAL SURGERY PROCEDURE LAP,CHOLECYSTECTOMY/GRAPH Suresh Gleason MD [address] [address] Phone: tel: fax: Referral ID Status Reason Start Date Expiration Date Visits Re quested Visits Authorized [id number] Closed 02/28/2024 1 1 Reason for Visit * Reason Comments New Patient Abdominal Pain Skin Lesion * Consult, Test & Initiate Treatment (Less Than 2 Weeks) - Closed Specialty Diagnoses / Procedures Referred By Contac t Referred To Contact Diagnoses Gallstones Bianka Oneill PAC [address] [place] [address] Phone: tel: fax: [facility] - [place] [address] [address] Phone: tel: fax: Referral ID Status Reason Start Date Expiration Date Visits Re quested Visits Authorized [id number] Closed 02/22/2024 1 1 Encounter Details Date Type Department Care Team (Late st Contact Info) Description 02/28/2024 11:00 AM CDT Office Visit [facility] - [place] [address] [phone] Bianka Oneill, YARED [address] [place] [address] Suresh Gleason MD #[address] [address] Gallbladder disease (Primary Dx); Skin [...] through Care Everywhere. * Minimally Invasive Cholecystectomy (Djiboutian) documented in this encounter Progress Notes * Suresh Gleason MD - 02/28/2024 11:00 AM CDT HISTORY AND PHYSICAL Assessment: New consult for gallstones Anxiety Asthma Hx of gestational diabetes Obesity PLAN: I have personally reviewed and interpreted the report from the CT scan from [facility]. We will upload images to our system. [...] observation. Information booklet regarding cholecystectomy from the [employer] was also provided. Total time spent on this encounter on this date of service, including pre-visit review of separately obtained history, olvl-gd-gadd interaction performing medically appropriate physical exam, patientcounseling/education, interpretation of diagnostic results, care coordination and documentation was45 minutes. Subjective: HPI: Annalise Vogt is a 18 y.o. female who I was asked to see by YARED Sims for possible gallbladder disease. She is a very pleasant lady, she had a baby recently. 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 She has been having epigastric abdominal pain that radiates to her back for the last couple of months. Sometimes associated with greasy food intake but sometimes not. The pain comes and goes is not all the time. Sometimes associated with nausea but no emesis. She denies any history priorabdominal operations. She did visit [facility] ER and a CT scan was performed [...] st Contact Info) Description 10/07/2024 3:00 PM LOAD OUT PERSON Office Visit [facility] Medical Group - Family Medicine [facility] [address]2 [place] [address] Bianka Oneill, PAC [address] [place] [address] Scheduled Orders Name Type Priority Associated Diagnoses Orde r Schedule GENERAL SURGERY PROCEDURE Procedures Routine Gallbladder disease Expected: 02/28/2024, Expires: 04/28/2024 documented as of this encounter Goals Goal Patient Goal Type Associated Problems Recent Progress Patient-Stated? Author just want to feel normal Behavioral Health On track(2023 4:08 PM LOAD OUT PERSON) Yes Che Dickerson, WIRE STITCHER OPERATOR Note: Goal/Objective: Decrease anxious and depressive symptoms. Anticipated Time Frame for Goal Completion: 6 months Goal Reviewed with: patient Readiness to change: Ready to change Department associated with goal: [facility] Steps to [...] documented as of this encounter Care Teams Business Development Relationship Specialty Start Date End Date Bianka Oneill PAC [address] [place] [address] PCP - General Physician Chocolate Packer 08/18/22 documented as of this encounter
--- OUTSIDE RECORDS SUMMARY | 2024-09-22 21:28 | XMS_ITS | Encounter Summary ---
Author Organization [facility] Address [address] [facility] [place] [address] Phone Care Team Providers Care Finance Advisor Name Role Phone Bianka Oneill Primary Care Provider + Reason for Visit * Episode Based Medications (Routine) - Closed Specialty Diagnoses / Procedures Referred By Contac t Referred To Contact Diagnoses Iron deficiency anemia, unspecified iron deficiency anemia type Pepper Reyes, PAC [address] [place] [address] Phone: tel: fax: [facility] Oncology Services [address] [place] [address] Phone: tel: fax: Referral ID Status Reason Start Date Expiration Date Visits Re quested Visits Authorized [id number] Closed 05/18/2023 1 1 Encounter Details Date Type Department Care Team (Late st Contact Info) Description 05/25/2023 1:30 PM CDT Clinical Support [facility] [address] [place] [phone] Pepper Reyes PAC [address] [place] [address] Iron deficiency anemia, unspecified iron deficiency anemia [...] st Contact Info) Description 10/07/2024 3:00 PM FABRICATION DEPARTMENT SUPERVISOR Office Visit [facility] #2 [place] [address] Bianka Oneill PAC [address] [place] [address] documented as of this encounter Goals Goal Patient Goal Type Associated Problems Recent Progress Patient-Stated? Author just want to feel normal Behavioral Health On track(2023 4:08 PM FABRICATION DEPARTMENT SUPERVISOR) Yes Che Dickerson, GRAPE CRUSHER Note: Goal/Objective: Decrease anxious and depressive symptoms. [...] Total Score: 6 08/18/20 22 8:00 AM FABRICATION DEPARTMENT SUPERVISOR documented as of this encounter Care Teams Finance Advisor Relationship Specialty Start Date End Date Bianka Oneill PAC [address] [place] [address] PCP - General Physician Inserter Promotional Item 08/18/22 documented as of this encounter
--- OUTSIDE RECORDS SUMMARY | 2024-09-22 21:28 | XMS_ITS | Encounter Summary ---
Author Organization [facility] Address [address] [place] [address] Phone Care Team Providers Care Supervisor [employer] Name Role Phone Bianka Oneill Primary Care Provider + Reason for Visit * Reason Comments Follow-up Encounter Details Date Type Department Care Team (Late st Contact Info) Description 05/18/2023 10:15 AM CDT Office Visit [facility] Oncology Services [address] [place] [address] Pepper Reyes Letitia, PAC [address] [place] [address] Iron deficiency anemia, unspecified iron deficiency anemia [...] st Contact Info) Description 10/07/2024 3:00 PM FLUE CLEANER Office Visit [facility] Medical [facility] [address] [place] [address] Bianka Oneill, PAC [address] [place] [address] Scheduled Orders Name Type Priority Associated Diagnoses [...] normal Behavioral Health On track(2023 4:08 PM FLUE CLEANER) Yes Che Dickerson, MADALYN Note: Goal/Objective: Decrease anxious and depressive symptoms. Anticipated Time Frame for Goal Completion: 6 months Goal Reviewed with: patient Readiness to change: Ready to change Department associated with goal: [facility] Steps [...] Total Score: 6 08/18/20 22 8:00 AM FLUE CLEANER documented as of this encounter Care Teams Supervisor [employer] Relationship Specialty Start Date End Date Bianka Oneill PAC [address] [place] [address] PCP - General Physician Barrel Drum Cutter 08/18/22 documented as of this encounter
--- OUTSIDE RECORDS SUMMARY | 2024-09-22 21:28 | XMS_ITS | Encounter Summary ---
Author Organization [facility] Address [address] [place] [address] Phone Care Team Providers Care Croze Machine Operator Name Role Phone Bianka Oneill Primary Care Provider + Reason for Visit * Reason Comments Medication Refill Encounter Details Date Type Department Care Team (Late st Contact Info) Description 07/13/2023 Refill [facility] [address] [place] [address] Bianka Oneill PAC [address] [place] [address] Medication Refill Social History Tobacco Use Types [...] 05/29/23 Office Visit Bianka Oneill PAC [facility] 05/05/23 Telemedicine Bianka Oneill PAC [facility] 04/17/23 Office Visit Bianka Oneill PAC [facility] 03/23/23 Office Visit Bianka Oneill PAC [facility] 03/01/23 Office Visit Mikie Solorio MD [facility] 02/24/23 Office Visit Bianka Oneill PAC [facility] 01/13/23 Office Visit Bianka Oneill PAC [facility] Showing recent visits within past 182 days and meeting all other requirements Future Appointments Date Type Provider Dept 08/28/23 Appointment Bianka Oneill PAC [facility] Showing future appointments within next 90 days [...] 05/29/23 Office Visit Bianka Oneill, PAC [facility] 05/05/23 Telemedicine Bianka Oneill, PAC [facility] 04/17/23 Office Visit Bianka Oneill, PAC [facility] 03/23/23 Office Visit Bianka Oneill, PAC [facility] 03/01/23 Office Visit Mikie Solorio MD [facility] [place] 02/24/23 Office Visit ArunoctavionattyBianka, PAC [facility] [place] 01/13/23 Office Visit Bianka Oneill, PAC [facility] 11/29/22 Office Visit Bianak Oneill, PAC [facility] 10/21/22 Office Visit Bianka Oneill, PAC [facility] 09/30/22 Office Visit ArunBianka villanueva, PAC [facility] Showing recent visits within past 365 days and meeting all other requirements Future Appointments Date Type Provider Dept 08/28/23 Appointment ArunoctavionattyBianka, PAC [facility] Showing future appointments within next 90 days and meeting all other requirements documented in this encounter Plan of Treatment Upcoming Encounters Date Type Department Care Team (Late st Contact Info) Description 10/07/2024 3:00 PM ANIMATED CARTOONS PAINTER Office Visit [facility] Medical Group - Family Medicine - [place] [address] [place] [address] ArunoctavioBren luzJosie, PAC [address] [place] [address] documented as of this encounter Goals Goal Patient Goal Type Associated Problems Recent Progress Patient-Stated? Author just want to feel normal Behavioral Health On track(2023 4:08 PM ANIMATED CARTOONS PAINTER) Yes Che Dickerson, MICRO PALEONTOLOGIST Note: Goal/Objective: Decrease anxious and depressive symptoms. Anticipated Time Frame for Goal Completion: 6 months Goal Reviewed with: patient Readiness to change: Ready to change Department associated with goal: [facility] Steps to [...] documented as of this encounter Care Teams Croze Machine Operator Relationship Specialty Start Date End Date Bianka Oneill PAC [address] [place] [address] PCP - General Physician Boot Trimmer 08/18/22 documented as of this encounter
--- OUTSIDE RECORDS SUMMARY | 2024-09-22 21:28 | XMS_ITS | Encounter Summary ---
Author Organization [facility] [employer] Care Team Providers Care Artist Model Name Role Phone Bianka Oneill Primary Care [...] Coronavirus/COVID-19? No / Unsure 07/26/2023 11:17 AM TRUER PINION AND WHEEL documented as of this encounter Plan of Treatment Upcoming Encounters Date Type Department Care Team (Late st Contact Info) Description 10/07/2024 3:00 PM TRUER PINION AND WHEEL Office Visit [facility] Medical [facility] [address] [place] [address] Bianka Oneill PAC [address] [place] [address] documented as of this encounter Goals Goal Patient Goal Type Associated Problems Recent Progress Patient-Stated? Author just want to feel normal Behavioral Health On track(2023 4:08 PM TRUER PINION AND WHEEL) Yes Che Dickerson, RN SECURITY Note: Goal/Objective: Decrease anxious and depressive symptoms. [...] documented as of this encounter Care Teams Artist Model Relationship Specialty Start Date End Date Bianka Oneill PAC [address] [place] [address] PCP - General Physician Punchboard Filling Machine Operator 08/18/22 documented as of this encounter
--- OUTSIDE RECORDS SUMMARY | 2024-09-22 21:28 | XMS_ITS | Encounter Summary ---
Author Organization [facility] [employer] Care Team Providers Care Transmitter Chief Name Role Phone Bianka Oneill Primary [...] st Contact Info) Description 10/07/2024 3:00 PM PROFESSOR OF GEOGRAPHY Office Visit [facility] Medical Group - Family Medicine [facility] #2 [place] [phone] Bianka Oneill PAC [address] [place] [address] documented as of this encounter Goals Goal Patient Goal Type Associated Problems Recent Progress Patient-Stated? Author just want to feel normal Behavioral Health On track(2023 4:08 PM PROFESSOR OF GEOGRAPHY) Yes Che Dickerson, SPORTS PHYSICAL THERAPIST Note: Goal/Objective: Decrease anxious and depressive symptoms. Anticipated Time Frame for Goal Completion: 6 months Goal Reviewed with: patient Readiness to change: Ready to change Department associated with goal: [facility] Steps to [...] documented as of this encounter Care Teams Transmitter Chief Relationship Specialty Start Date End Date Bianka Oneill PAC [address] [place] [address] PCP - General Physician Medical Lab Technologist 08/18/22 documented as of this encounter
--- OUTSIDE RECORDS SUMMARY | 2024-09-22 21:28 | XMS_ITS | Encounter Summary ---
Author Organization [facility] [employer] Care Team Providers Care Housekeeping Director Name Role Phone Bianka Oneill Primary Care [...] st Contact Info) Description 10/07/2024 3:00 PM HUMAN RESOURCES PROJECT COORDINATOR Office Visit [facility] Medical [facility] [address]2 [place] [address] Bianka Oneill PAC [address] [place] [address] documented as of this encounter Goals Goal Patient Goal Type Associated Problems Recent Progress Patient-Stated? Author just want to feel normal Behavioral Health On track(2023 4:08 PM HUMAN RESOURCES PROJECT COORDINATOR) Yes Che Dickerson LCSW Note: Goal/Objective: [...] Total Score: 6 08/18/20 22 8:00 AM HUMAN RESOURCES PROJECT COORDINATOR documented as of this encounter Care Teams Housekeeping Director Relationship Specialty Start Date End Date Bianka Oneill PAC [address] [place] [address] PCP - General Physician Stitch Bonding Machine Operator 08/18/22 documented as of this encounter
--- OUTSIDE RECORDS SUMMARY | 2024-09-22 21:28 | XMS_ITS | Encounter Summary ---
Author Organization [facility] Address [address] [place] [address] Phone Care Team Providers Care Nurse Chemical Dependency Name Role Phone Bianka Oneill Primary Care Provider + Reason for Visit * Auth/Cert (Routine) Specialty Diagnoses / Procedures Referred By Contac t Referred To Contact Referral ID Status Reason Start Date Expiration Date Visits Re quested Visits Authorized [id number] 1 1 Encounter Details Date Type Department Care Team (Late st Contact Info) Description 10/05/2023 9:30 AM SUPERINTENDENT Telemedicine [facility] Behavioral Health Services [address] [place] [address] Che Dickerson, MACHINE DESIGN ENGINEER [address] [place] [address] Anxiety (Primary Dx) Discharge Disposition: Discharged to [...] encounter Progress Notes * Che Dickerson, MACHINE DESIGN ENGINEER - 10/05/2023 9:30 AM CST Images from the original note were not included. [facility] BEHAVIORAL HEALTH CLINICAL PROGRESS NOTE NAME: Annalise [...] Ready to change Department associated with goal: [facility] Steps to [...] for support and guidance. CHE DICKERSON LCSW RINTENDENT documented in this encounter Plan of Treatment Upcoming Encounters Date Type Department Care Team (Late st Contact Info) Description 10/07/2024 3:00 PM SUPERINTENDENT [facility] [place] [address] Bianka Oneill, [facility] [address]2 [place] [address] documented as of this encounter Goals Goal Patient Goal Type Associated Problems Recent Progress Patient-Stated? Author just want to feel normal Behavioral Health On track(2023 4:08 PM SUPERINTENDENT) Yes Che Dickerson LCSW Note: Goal/Objective: Decrease anxious and depressive symptoms. Anticipated Time Frame for Goal Completion: 6 months Goal Reviewed with: patient Readiness to change: Ready to change Department associated with goal: [facility] Steps to [...] as of this encounter Care Teams Nurse Chemical Dependency Relationship Specialty Start Date End Date Bianka Oneill PAC [address] [place] [address] PCP - General Physician Renal Dialysis Rn 08/18/22 documented as of this encounter
--- OUTSIDE RECORDS SUMMARY | 2024-09-22 21:28 | XMS_ITS | Encounter Summary ---
Author Organization [facility] [employer] Care Team Providers Care Sports Specialist Name Role Phone Bianka Oneill Primary [...] st Contact Info) Description 10/07/2024 3:00 PM GENERAL INSPECTOR Office Visit [facility] Medical Group - Family Medicine [facility] #2 [place] [address] Bianka Oneill PAC [address] [place] [address] documented as of this encounter Goals Goal Patient Goal Type Associated Problems Recent Progress Patient-Stated? Author just want to feel normal Behavioral Health On track(2023 4:08 PM GENERAL INSPECTOR) Yes Che Dickerson, CORONARY CLINICAL SPECIALIST Note: Goal/Objective: Decrease anxious and depressive [...] documented as of this encounter Care Teams Sports Specialist Relationship Specialty Start Date End Date Bianka Oneill PAC [address] [place] [address] PCP - General Physician Imitation Marble Mechanic 08/18/22 Suresh Gleason MD [address] [address] Consulting Physician General Surgery 03/11/24 documented as of this encounter
--- OUTSIDE RECORDS SUMMARY | 2024-09-22 21:28 | XMS_ITS | Encounter Summary ---
Author Organization [facility] Address [address] [place] [address] Phone Care Team Providers Care Cargo Trimmer Name Role Phone Bianka Oneill Primary Care Provider + Reason for Visit * Reason Onset Date Comments Letter for School/Work 03/06/2024 Encounter Details Date Type Department Care Team (Late st Contact Info) Description 03/06/2024 Telephone [facility] - [place] [address] [address] Suresh Gleason MD [address] [address] Letter for School/Work Social History [...] Dr. Gleason on 03/05/2024. 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 Patient's letter being sent via [employer]. documented in this encounter Plan of Treatment Upcoming Encounters Date Type Department Care Team (Late st Contact Info) Description 10/07/2024 3:00 PM PIANO MAKER Office Visit [facility] Medical [facility] [address] [place] [address] Bianka Oneill, [facility] [address] [place] [address] documented as of this encounter Goals Goal Patient Goal Type Associated Problems Recent Progress Patient-Stated? Author just want to feel normal Behavioral Health On track(2023 4:08 PM PIANO MAKER) Yes Che Dickerson, SENIOR CLIMATE ADVISOR Note: Goal/Objective: Decrease anxious and depressive [...] documented as of this encounter Care Teams Cargo Trimmer Relationship Specialty Start Date End Date Bianka Oneill PAC [address] [place] [address] PCP - General Physician Chute Feeder 08/18/22 documented as of this encounter
--- OUTSIDE RECORDS SUMMARY | 2024-09-22 21:29 | XMS_ITS | Encounter Summary ---
Author Organization [facility] [employer] Care Team Providers Care Manager Manufacturing Name Role Phone Bianka Oneill Primary Care [...] st Contact Info) Description 10/07/2024 3:00 PM WINDSURFING INSTRUCTOR Office Visit [facility] Medical Group - Family Medicine [facility] [address]2 [place] [address] Bianka Oneill PAC [address] [place] [address] documented as of this encounter Visit Diagnoses Not on filedocumented in this encounter Additional Health Concerns Assessment Noted Time PHQ-9 Depression Total Score: 6 08/18/20 22 8:00 AM WINDSURFING INSTRUCTOR documented as of this encounter Care Teams Manager Manufacturing Relationship Specialty Start Date End Date Bianka Oneill PAC [address] [place] [address] PCP - General Physician Patient Placement Coordinator 08/18/22 documented as of this encounter
--- OUTSIDE RECORDS SUMMARY | 2024-09-22 21:29 | XMS_ITS | Encounter Summary ---
Author Organization [facility] [employer] Care Team Providers Care Telecommunications Clerk Name Role Phone Bianka Oneill Primary [...] Contact Info) Description 10/07/2024 3:00 PM ADMINISTRATION DEAN Office Visit 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
--- OUTSIDE RECORDS SUMMARY | 2024-09-22 21:29 | XMS_ITS | Encounter Summary ---
Author Organization [facility] [employer] Care Team Providers Care Product Safety Head Name Role Phone Bianka Oneill Primary Care [...] st Contact Info) Description 10/07/2024 3:00 PM AUDITING CODER Office Visit [facility] Medical [facility] [address] [place] [address] Bianka Oneill PAC [address] [place] [address] documented as of this encounter Visit Diagnoses Not on filedocumented in this encounter Additional Health Concerns Assessment Noted Time PHQ-9 Depression Total Score: 6 08/18/20 22 8:00 AM AUDITING CODER documented as of this encounter Care Teams Product Safety Head Relationship Specialty Start Date End Date Bianka Oneill PAC [address] [place] [address] PCP - General Physician Buckle Attaching Machine Operator 08/18/22 documented as of this encounter
--- OUTSIDE RECORDS SUMMARY | 2024-09-22 21:29 | XMS_ITS | Encounter Summary ---
Author Organization [facility] Address [address] [place] [address] Phone Care Team Providers Care Garment Worker Name Role Phone Bianka Oneill Primary Care Provider + Reason for Referral * Radiology Services (Routine) - Closed Specialty Diagnoses / Procedures Referred By Conttyson t Referred To Contact Radiology Diagnoses Generalized abdominal pain Procedures US ABDOMEN COMPLETE Bianka Oneill PAC [address] [place] [address] Phone: tel: fax: Referral ID Status Reason Start Date Expiration Date Visits Re quested Visits Authorized [id number] Closed 04/17/2023 1 1 Reason for Visit * Reason Comments MRSA Encounter Details Date Type Department Care Team (Latest Contact Info) Description 04/17/2023 8:45 AM CDT Office Visit [facility] Medical Group - [facility] [address]2 [place] [phone] Bianka Oneill PAC [address] [place] [address] Left hip pain (Primary Dx); History of [...] st Contact Info) Description 10/07/2024 3:00 PM YARN MERCERIZER OPERATOR HELPER Office Visit [facility] [address] [place] [address] Bianka Oneill, PAC [address] [place] [address] documented as of this encounter Results * [...] AM T: ??06/03/2023 11:19 AM Report ID: [id number] Reading Location: [id number] Procedure Note Fernando Garcia Jr., MD - [...] Fernando Garcia M.D. CH: FELISHA Report ID: [id number] Reading Location: [place] [address] IMPRESSION: Negative abdominal ultrasound. us Bianka Oneill PAC IMG US ORDERABLES Final Result * (ABNORMAL) URINALYSIS REFLEX IF INDICATED BY ABNORMAL RESULTS (04/17/2023 9:49 AM CDT) SPECIFIC GRAVITY 1.015 1.003 - 1.030 04/17/2023 1:11 PM CDT [facility] URINE PH 7.0 5.0 - 9.0 04/17/2023 1:11 PM CDT [facility] WBC ESTERASE 25 /ul(A) Negative 04/17/2023 1:11 PM CDT [facility] NITRITE Negative Negative 04/17/2023 1:11 PM CDT [facility] PROTEIN, RANDOM URINE 15 mg/dL(A) Negative 04/17/2023 1:11 PM CDT [facility] URINE GLUCOSE, QUAL Negative Negative 04/17/2023 1:11 PM CDT [facility] URINE KETONES Negative Negative 04/17/2023 1:11 PM CDT [facility] UROBILINOGEN Normal Normal mg/dL 04/17/2023 1:11 PM CDT [facility] URINE BLOOD Negative Negative carter/ul 04/17/2023 1:11 PM CDT [facility] URINALYSIS COLOR Yellow 04/17/20 1:11 PM CDT [facility] URINALYSIS CLARITY Slightly Cloudy 04/17/2023 1:11 PM CDT [facility] WBC (Urine) 6-10(A) Negative, 0-5 /hpf 04/17/2023 1:11 PM CDT [facility] URINE RBC'S 0-2 Negative, 0-2 /hpf 04/17/2023 1:11 PM CDT [facility] EPITHELIAL CELLS Large amount squamous /lpf 04/17/2023 1:11 PM CDT [facility] BACTERIA, URINE Few(A) Negative /hpf 04/17/2023 1:11 PM CDT [facility] CRYSTALS Calcium oxalate 04/17/2023 1:11 PM CDT [facility] Urine URINE SPECIMEN COLLECTION, CLEAN CATCH / Unknown Non-Phlebotomy Collection / Unknown 04/17/2023 9:49 AM CDT 04/17/2023 9:49 AM CDT us Bianka Oneill PAC URINE ORDERABLES Final R esult [facility] [address] [place] [address] * LIPASE (04/17/2023 9:49 AM CDT) LIPASE 28.7 13 - 60 U/L 04/17/2023 1:19 PM CDT [facility] Blood Venipuncture / Unknown 04/17/2023 9:49 AM CDT 04/17/2023 9:49 AM CDT us Bianka Oneill PAC CHEMISTRY ORDERABLES Fin al Result [facility] [address] [place] [address] * AMYLASE (04/17/2023 9:49 AM CDT) AMYLASE 34 28 - 100 U/L 04/17/2023 1:19 PM CDT [facility] Blood Venipuncture / Unknown 04/17/2023 9:49 AM CDT 04/17/2023 9:49 AM CDT us Bianka Oneill PAC CHEMISTRY ORDERABLES Fin al Result [facility] [address] [place] [address] documented in this encounter Visit Diagnoses Diagnosis [...] Total Score: 6 08/18/20 22 8:00 AM YARN MERCERIZER OPERATOR HELPER documented as of this encounter Care Teams Garment Worker Relationship Specialty Start Date End Date Bianka nOeill, YARED [address] [place] [address] PCP - General Physician Potato Bucker 08/18/22 documented as of this encounter
--- OUTSIDE RECORDS SUMMARY | 2024-09-22 21:29 | XMS_ITS | Encounter Summary ---
Author Organization [facility] Address [address] [place] [address] Phone Care Team Providers Care Safety Officer Name Role Phone Bianka Oneill Primary Care Provider + Reason for Visit * Episode Based Medications (Routine) - Closed Specialty Diagnoses / Procedures Referred By Contac t Referred To Contact Diagnoses Iron deficiency anemia, unspecified iron deficiency anemia type Pepper Reyes, PAC [address] [place] [address] Phone: tel: fax: [facility] [address] [place] [address] Phone: tel: fax: Referral ID Status Reason Start Date Expiration Date Visits Re quested Visits Authorized [id number] Closed 01/26/2023 1 1 Encounter Details Date Type Department Care Team (Late st Contact Info) Description 02/03/2023 1:30 PM CDT Clinical Support [facility] [address] [place] [phone] Pepper Reyes PAC [address] [place] [address] Iron deficiency anemia, unspecified iron deficiency anemia [...] st Contact Info) Description 10/07/2024 3:00 PM OVENS SUPERVISOR [facility] Visit [facility] [address] [place] [address] Bianka Oneill PAC [address] [place] [address] documented as of this encounter Visit Diagnoses [...] Total Score: 6 08/18/20 22 8:00 AM OVENS SUPERVISOR documented as of this encounter Care Teams Safety Officer Relationship Specialty Start Date End Date Bianka Oneill PAC [address] [place] [address] PCP - General Physician Fondant Puff Maker 08/18/22 documented as of this encounter
--- OUTSIDE RECORDS SUMMARY | 2024-09-22 21:29 | XMS_ITS | Encounter Summary ---
Author Organization [facility] [employer] Care Team Providers Care Drywall Carrier Name Role Phone Bianka Oneill Primary Care [...] st Contact Info) Description 10/07/2024 3:00 PM PRIMARY SPECIAL EDUCATION TEACHER Office Visit [facility] Medical Group - Family Medicine [facility] [address] [place] [address] Bianka Oneill PAC [address] [place] [address] documented as of this encounter Visit Diagnoses Not on filedocumented in this encounter Additional Health Concerns Assessment Noted Time PHQ-9 Depression Total Score: 6 08/18/20 22 8:00 AM PRIMARY SPECIAL EDUCATION TEACHER documented as of this encounter Care Teams Drywall Carrier Relationship Specialty Start Date End Date Bianka Oneill PAC [address] [place] [address] PCP - General Physician Bridge Ironworker Helper 08/18/22 documented as of this encounter
--- OUTSIDE RECORDS SUMMARY | 2024-09-22 21:29 | XMS_ITS | Encounter Summary ---
Author Organization [facility] [employer] Care Team Providers Care Leather Cartridge Belt Maker Name Role Phone Bianka Oneill Primary [...] Contact Info) Description 10/07/2024 3:00 PM NUCLEAR OPERATIONS SPECIALIST Office Visit [facility] Medical Group - Family Medicine [facility] [address] [place] [address] Bianka Oneill PAC [address] [place] [address] documented as of this encounter Visit Diagnoses Not on filedocumented in this encounter Additional Health Concerns Assessment Noted Time PHQ-9 Depression Total Score: 6 08/18/20 22 8:00 AM NUCLEAR OPERATIONS SPECIALIST documented as of this encounter Care Teams Leather Cartridge Belt Maker Relationship Specialty Start Date End Date Bianka Oneill PAC [address] [place] [address] PCP - General Physician Patient Service Coordinator 08/18/22 documented as of this encounter
--- OUTSIDE RECORDS SUMMARY | 2024-09-22 21:29 | XMS_ITS | Encounter Summary ---
Author Organization [facility] Address [address] [place] [address] Phone Care Team Providers Care Gage Maker Name Role Phone Bianka Oneill Primary Care Provider + Reason for Visit * Reason Comments Urinary Pain Was seen in ER on 02/18 for UTI. Finished antibiotics but symptoms resumed immediately after. Encounter Details Date Type Department Care Team (Late st Contact Info) Description 03/01/2023 1:45 PM CDT Office Visit [facility] Medical Group - Family Medicine [facility] [address] [place] [address] Mikie Solorio MD #[address] [address] Dysuria (Primary Dx) Discharge Disposition: Discharged to [...] st Contact Info) Description 10/07/2024 3:00 PM STATISTICS MANAGER Office Visit [facility] Medical Group - Family [facility] [address] [place] [address] Bianka Oneill, PAC [address] [place] [address] documented as of this encounter Procedures Procedure Name Priority Date/Time Associated Diagnosis Comments CULTURE, URINE Routine 03/01/2023 2:34 PM CDT Dysuria POCT UA AUTOMATED W/O MICRO Routine 03/01/2023 1:59 PM CDT Dysuria documented in this encounter Results * CULTURE, URINE (03/01/2023 2:34 PM CDT) CULTURE RESULTS ESCHERICHIA COLI 03/04/2023 11:07 AM CDT [facility] Comment:PRESUMPTIVE IDENTIFI CATION Culture URINE [...] - GENERAL ORDERA BLES Final Result [facility] [address] [place] [address], * (ABNORMAL) POCT UA AUTOMATED W/O MICRO (03/01/2023 1:59 PM CDT) POC UA SPECIFIC GRAVITY 1.015 URINE PH 7.0 5.0 - 9.0 POC URINE LEUKOCYTES 500 /uL(A) Negative Saluo/uL POC URINE NITRITE Positive(A) Negative POC URINE PROTEIN 500 mg/dL(A) Negative mg/dL POC URINE GLUCOSE Norm Negative, Norm mg/dL POC URINE KETONE Negative Negative mg/dL POC URINE UROBILINOGEN 8 E.U./dL (mg/dL)(A) Norm, 0.2 E.U./dL (mg/dL), 1 E.U./dL (mg/dL) POC URINE BILIRUBIN 3 mg/dL(A) Negative mg/dL POC URINE BLOOD INSTRUMENT 50 Terry/uL(A) Negative Terry/uL POC URINE COLOR Hollister POC URINE CLARITY Clear Urine 03/01/2023 1:59 PM CDT Mikie Solorio MD POINT OF CARE TESTING (MANUAL ) Final Result documented in this encounter Visit Diagnoses Diagnosis Dysuria- Primary documented in this encounter Additional Health Concerns Assessment Noted Time PHQ-9 Depression Total Score: 6 08/18/20 22 8:00 AM STATISTICS MANAGER documented as of this encounter Care Teams Gage Maker Relationship Specialty Start Date End Date Bianka Oneill, YARED [address] [place] [address] PCP - General Physician Dental Ceramist Helper 08/18/22 documented as of this encounter
--- OUTSIDE RECORDS SUMMARY | 2024-09-22 21:29 | XMS_ITS | Encounter Summary ---
Author Organization [facility] Address [address] [place] [address] Phone Care Team Providers Care Embossograph Operator Name Role Phone Bianka Oneill Primary Care Provider + Reason for Visit * Reason Onset Date Comments Appointment 03/15/2023 Encounter Details Date Type Department Care Team (Late st Contact Info) Description 03/15/2023 Telephone [facility] [address] [place] [address] Bianka Oneill, YARED [address] [place] [address] Appointment Social History Tobacco Use Types Packs/Day [...] st Contact Info) Description 10/07/2024 3:00 PM SAIL REPAIR PERSON Office Visit [facility] Medical Group - [facility] [address] [place] [address] Bianka Oneill PAC [address] [place] [address] documented as of this encounter Visit Diagnoses Not on filedocumented in this encounter Additional Health Concerns Assessment Noted Time PHQ-9 Depression Total Score: 6 08/18/20 22 8:00 AM SAIL REPAIR PERSON documented as of this encounter Care Teams Embossograph Operator Relationship Specialty Start Date End Date Bianka Oneill PAC [address] [place] [address] PCP - General Physician Kiln Charger 08/18/22 documented as of this encounter
--- OUTSIDE RECORDS SUMMARY | 2024-09-22 21:29 | XMS_ITS | Encounter Summary ---
Author Organization [facility] Address [address] [place] [address] Phone Care Team Providers Care Copy Manager Name Role Phone Bianka nOeill Primary Care Provider + Reason for Visit * Reason Onset Date Comments Medication Refill 02/26/2023 Encounter Details Date Type Department Care Team (Late st Contact Info) Description 02/26/2023 MyChart RX Renewal [facility] [place] [address] [place] [address] Bianka Oneill PAC [address] [place] [address] Medication Renewal Reviewed Social History Tobacco Use [...] 02/24/23 Office Visit Bianka Oneill, PAC [facility] 01/13/23 Office Visit Bianka Oneill, PAC [facility] 11/29/22 Office Visit Bianka Oneill, PAC [facility] 10/21/22 Office Visit Bianka Oneill, PAC [facility] 09/30/22 Office Visit Bianka Oneill, PAC [facility] 08/18/22 Office Visit Bianka Oneill, PAC [facility] Showing recent visits within past 365 days [...] st Contact Info) Description 10/07/2024 3:00 PM MINT WAFER DEPOSITOR [facility] Visit [facility] [address] [place] [address] Bianka Oneill PAC [address] [place] [address] documented as of this encounter Visit Diagnoses Diagnosis Anemia, unspecified type documented in this encounter Additional Health Concerns Assessment Noted Time PHQ-9 Depression Total Score: 6 08/18/20 22 8:00 AM MINT WAFER DEPOSITOR documented as of this encounter Care Teams Copy Manager Relationship Specialty Start Date End Date Bianka Oneill PAC [address] [place] [address] PCP - General Physician Electric Motor Repairer 08/18/22 documented as of this encounter
--- OUTSIDE RECORDS SUMMARY | 2024-09-22 21:29 | XMS_ITS | Encounter Summary ---
Author Organization [facility] Address [address] [place] [address] Phone Care Team Providers Care Grants Administrator Name Role Phone Bianka Oneill Primary Care Provider + Reason for Visit * Episode Based Medications (Routine) - Closed Specialty Diagnoses / Procedures Referred By Contac t Referred To Contact Diagnoses Iron deficiency anemia, unspecified iron deficiency anemia type Pepper Reyes, PAC [address] [place] [address] Phone: tel: fax: [facility] [address] [place] [address] Phone: tel: fax: Referral ID Status Reason Start Date Expiration Date Visits Re quested Visits Authorized [id number] Closed 01/26/2023 1 1 Encounter Details Date Type Department Care Team (Late st Contact Info) Description 02/08/2023 9:30 AM CDT Clinical Support [facility] [address] [place] [phone] Pepper Reyes PAC [address] [place] [address] Iron deficiency anemia, unspecified iron deficiency anemia [...] st Contact Info) Description 10/07/2024 3:00 PM MINE ANALYST Office Visit [facility] Medical Group - [facility] [address] [place] [address] Bianka Oneill, YARED [address] [place] [address] documented as of this encounter Visit Diagnoses [...] Total Score: 6 08/18/20 22 8:00 AM MINE ANALYST documented as of this encounter Care Teams Grants Administrator Relationship Specialty Start Date End Date Bianka Oneill PAC [address] [place] [address] PCP - General Physician Steel Fitter 08/18/22 documented as of this encounter
--- OUTSIDE RECORDS SUMMARY | 2024-09-22 21:29 | XMS_ITS | Encounter Summary ---
Author Organization [facility] Address [address] [place] [address] Phone Care Team Providers Care Timber Grader Name Role Phone Bianka Oneill Primary Care Provider + Reason for Visit * Reason Comments Follow-up 6 week Encounter Details Date Type Department Care Team (Late st Contact Info) Description 02/24/2023 9:15 AM CDT Office Visit [facility] Medical Group - Family Medicine [facility] #2 [place] [phone] Bianka Oneill PAC [address] [place] [address] Nausea (Primary Dx); Anxiety; BMI 40.0-44.9, adult [...] Recorded In the last 10 days, have jduson baxter been in contact with someone who [...] this encounter Progress Notes * Sandra Lira, PLUG MACHINE OPERATOR - 02/24/2023 9:15 AM CDT Annalise Vogt, [...] st Contact Info) Description 10/07/2024 3:00 PM SKI MAKER Office Visit [facility] Medical Group - Family [facility] #2 [place] [address] Bianka Oneill PAC [address] [place] [address] documented as of this encounter Results * (ABNORMAL) CMP (COMPREHENSIVE METABOLIC PANEL) (02/24/2023 10:20 AM CDT) SODIUM 140 136 - 144 mmol/L 02/24/2023 12:57 PM CDT [facility] POTASSIUM 3.7 3.5 - 5.1 mmol/L 02/24/2023 12:57 PM CDT [facility] CHLORIDE 105 100 - 110 mmol/L 02/24/2023 12:57 PM CDT [facility] CO2, VENOUS 24 22 - 32 mmol/L 02/24/2023 12:57 PM CDT [facility] ANION GAP 14.7 8.0 - 20.0 mmol/L 02/24/2023 12:57 PM CDT [facility] GLUCOSE 130(H) 70 - 99 mg/dL 02/24/2023 12:57 PM CDT [facility] BUN 9 6 - 20 mg/dL 02/24/2023 12:57 PM T [facility] CREATININE, BLOOD 0.59 0.40 - 1.00 mg/dL 02/24/2023 12:57 PM CDT [facility] BUN/CREATININE RATIO 15 12 - 20 ratio 02/24/2023 12:57 PM CDT [facility] TOTAL PROTEIN 7.2 6.0 - 8.3 g/dL 02/24/2023 12:57 PM CDT [facility] ALBUMIN 4.6 3.5 - 5.2 g/dL 02/24/2023 12:57 PM T [facility] A/G RATIO 1.8 1.0 - 2.0 02/24/2023 12:57 PM CDT [facility] CALCIUM 9.4 8.9 - 10.3 mg/dL 02/24/2023 12:57 PM CDT [facility] T BILI <0.3 <=1.2 mg/dL 02/24/2023 12:57 PM CDT [facility] SGOT (AST) 16 <=32 U/L 02/24/2023 12:57 PM CDT [facility] SGPT (ALT) 16 <=41 U/L 02/24/2023 12:57 PM CDT [facility] ALKALINE PHOSPHATASE 86 45 - 87 U/L 02/24/2023 12:57 PM CDT [facility] IS THE PATIENT REQUIRED TO BE FASTING? No 02/24/2023 12:57 PM CDT [facility] GFR, ESTIMATED >60 >=60 02/24/2023 12:57 PM CDT [facility] Comment: Creatinine Clearance is the preferred criteria for selecting drug dose adjustments in renally impaired patients. ??The GFR is provided as additional pertinent clinical information. GFR is reported in mL/min/1.73 sq m. Calculation based on the Chronic Kidney Disease Epidemiology Collaboration (CKD- EPI) equation refit without adjustment for race. UNABLE TO CALCULATE GFR, EST. 023 12:57 PM CDT [facility] GFR, EST. NONAFRICAN 02/24/2023 12:57 PM CDT [facility] Blood Venipuncture / Unknown 02/24/2023 10:20 AM CDT 02/24/2023 11:32 AM CDT us Bianka VAIL CHEMISTRY ORDERABLES Fin al Result [facility] [address] [place] [address] documented in this encounter Visit Diagnoses Diagnosis Nausea- Primary Nausea alone Anxiety Anxiety state, unspecified BMI 40.0-44.9, adult (HCC) Body Mass Index 40.0-44.9, adult documented in this encounter Additional Health Concerns Assessment Noted Time PHQ-9 Depression Total Score: 6 08/18/20 22 8:00 AM SKI MAKER documented as of this encounter Care Teams Timber Grader Relationship Specialty Start Date End Date Bianka Oneill PAC [address] [place] [address] PCP - General Physician Substation Superintendent 08/18/22 documented as of this encounter
--- OUTSIDE RECORDS SUMMARY | 2024-09-22 21:29 | XMS_ITS | Encounter Summary ---
Author Organization [facility] [employer] Care Team Providers Care Lead Software Engineer Name Role Phone Bianka Oneill [...] st Contact Info) Description 10/07/2024 3:00 PM STRADDLE BUGGY OPERATOR Office Visit [facility] Medical Group - Family Medicine [facility] #[address] [place] [address] Bianka Oneill PAC [address] [place] [address] documented as of this encounter Visit Diagnoses Not on filedocumented in this encounter Additional Health Concerns Assessment Noted Time PHQ-9 Depression Total Score: 6 08/18/20 22 8:00 AM STRADDLE BUGGY OPERATOR documented as of this encounter Care Teams Lead Software Engineer Relationship Specialty Start Date End Date Bianka Oneill PAC [address] [place] [address] PCP - General Physician Fan Blade Truer 08/18/22 documented as of this encounter
--- OUTSIDE RECORDS SUMMARY | 2024-09-22 21:29 | XMS_ITS | Encounter Summary ---
Author Organization [facility] Address [address] [place] [address] Phone Care Team Providers Care Needle Felt Making Machine Operator Name Role Phone Bianka Oneill Primary Care Provider + Reason for Visit * Reason Onset Date Comments Advice Only 04/13/2023 Follow-up 04/13/2023 Encounter Details Date Type Department Care Team (Late st Contact Info) Description 04/13/2023 Telephone [facility] [address] [place] [address] Bianka Oneill, PAC [address] [place] [address] Advice Only; Follow-up Social History Tobacco Use [...] st Contact Info) Description 10/07/2024 3:00 PM BISCUIT MACHINE OPERATOR Office Visit [facility] Medical Group - Family [facility] #2 [place] [address] Bianka Oneill PAC [address] [place] [address] documented as of this encounter Visit Diagnoses Not on filedocumented in this encounter Additional Health Concerns Infection Onset Date Last Indicated Resolved Time 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
--- OUTSIDE RECORDS SUMMARY | 2024-09-22 21:29 | XMS_ITS | Encounter Summary ---
Author Organization [facility] [employer] Care Team Providers Care Railroad Dispatcher Name Role Phone Bianka Oneill Primary Care [...] st Contact Info) Description 10/07/2024 3:00 PM BD SPECIAL EDUCATION TEACHER Office Visit [facility] Medical Group - Family Medicine [facility] [address] [place] [address] Bianka Oneill PAC [address] [place] [address] documented as of this encounter Visit Diagnoses Not on filedocumented in this encounter Additional Health Concerns Assessment Noted Time PHQ-9 Depression Total Score: 6 08/18/20 22 8:00 AM BD SPECIAL EDUCATION TEACHER documented as of this encounter Care Teams Railroad Dispatcher Relationship Specialty Start Date End Date Bianka Oneill PAC [address] [place] [address] PCP - General Physician Overhead Cleaner 08/18/22 documented as of this encounter
--- OUTSIDE RECORDS SUMMARY | 2024-09-22 21:29 | XMS_ITS | Encounter Summary ---
Author Organization [facility] Address [address] [place] [address] Phone Care Team Providers Care Scrum Master Name Role Phone Bianka Oneill Primary Care Provider + Encounter Details Date Type Department Care Team (Late st Contact Info) Description 03/06/2023 Telephone [facility] - Family Medicine [facility] [address] [place] [address] Mikie Solorio MD #[address] [address] Social History Tobacco Use Types Packs/Day Years [...] Contact Info) Description 10/07/2024 3:00 PM ANALYSIS SPECIALIST Office Visit [facility] Medical [facility] - Family Medicine [facility] [address] [place] [address] Bianka Oneill PAC [address] [place] [address] documented as of this encounter Visit Diagnoses Not on filedocumented in this encounter Additional Health Concerns Assessment Noted Time PHQ-9 Depression Total Score: 6 08/18/20 22 8:00 AM ANALYSIS SPECIALIST documented as of this encounter Care Teams Scrum Master Relationship Specialty Start Date End Date Bianka Oneill PAC [address] [place] [address] PCP - General Physician Medical Practice Manager 08/18/22 documented as of this encounter
--- OUTSIDE RECORDS SUMMARY | 2024-09-22 21:29 | XMS_ITS | Encounter Summary ---
Author Organization [facility] Address [address] [place] [address] Phone Care Team Providers Care Shield Operator Name Role Phone Bianka Oneill Primary Care Provider + Reason for Visit * Episode Based Medications (Routine) - Closed Specialty Diagnoses / Procedures Referred By Contac t Referred To Contact Diagnoses Iron deficiency anemia, unspecified iron deficiency anemia type Pepper Reyes, PAC [address] [place] [address] Phone: tel: fax: [facility] [address] [place] [address] Phone: tel: fax: Referral ID Status Reason Start Date Expiration Date Visits Re quested Visits Authorized [id number] Closed 01/26/2023 1 1 Encounter Details Date Type Department Care Team (Late st Contact Info) Description 02/06/2023 11:30 AM CDT Clinical Support [facility] [address] [place] [phone] Pepper Reyes PAC [address] [place] [address] Iron deficiency anemia, unspecified iron deficiency anemia [...] st Contact Info) Description 10/07/2024 3:00 PM BULL FIDDLE PLAYER Office Visit [facility] - Family [facility] [address]2 [place] [address] Bianka Oneill, YARED [address] [place] [address] documented as of this encounter Visit Diagnoses [...] Total Score: 6 08/18/20 22 8:00 AM BULL FIDDLE PLAYER documented as of this encounter Care Teams Shield Operator Relationship Specialty Start Date End Date Bianka Oneill PAC [address] [place] [address] PCP - General Physician Training Instructor 08/18/22 documented as of this encounter
--- OUTSIDE RECORDS SUMMARY | 2024-09-22 21:29 | XMS_ITS | Encounter Summary ---
Author Organization [facility] [employer] Care Team Providers Care Buhr Dresser Name Role Phone Bianka Oneill Primary Care [...] st Contact Info) Description 10/07/2024 3:00 PM KNOWLEDGE MANAGEMENT ADVISOR Office Visit [facility] Medical [facility] [address] [place] [address] Bianka Oneill, PAC [address] [place] [address] documented as of this encounter Visit Diagnoses Not on filedocumented in this encounter Additional Health Concerns Assessment Noted Time PHQ-9 Depression Total Score: 6 08/18/20 22 8:00 AM KNOWLEDGE MANAGEMENT ADVISOR documented as of this encounter Care Teams Buhr Dresser Relationship Specialty Start Date End Date Bianka Oneill PAC [address] [place] [address] PCP - General Physician Pediatric Urologist 08/18/22 documented as of this encounter
--- OUTSIDE RECORDS SUMMARY | 2024-09-22 21:29 | XMS_ITS | Encounter Summary ---
Author Organization [facility] Address [address] [facility] [place] [address] Phone Care Team Providers Care Optical Instrument Assembler Name Role Phone Bianka Oneill Primary Care Provider + Reason for Visit * Episode Based Medications (Routine) - Closed Specialty Diagnoses / Procedures Referred By Contac t Referred To Contact Diagnoses Iron deficiency anemia, unspecified iron deficiency anemia type Pepper Reyes, PAC [address] [place] [address] Phone: tel: fax: [facility] [address] [place] [address] Phone: tel: fax: Referral ID Status Reason Start Date Expiration Date Visits Re quested Visits Authorized [id number] Closed 01/26/2023 1 1 Encounter Details Date Type Department Care Team (Late st Contact Info) Description 02/01/2023 1:00 PM CDT Clinical Support [facility] [address] [place] [phone] Pepper Reyes PAC [address] [place] [address] Iron deficiency anemia, unspecified iron deficiency anemia [...] st Contact Info) Description 10/07/2024 3:00 PM WAREHOUSE OPERATOR Office Visit [facility] Medical Group - Family [facility] [address] [place] [address] Bianka Oneill PAC [address] [place] [address] documented as of this encounter Visit Diagnoses [...] Total Score: 6 08/18/20 22 8:00 AM WAREHOUSE OPERATOR documented as of this encounter Care Teams Optical Instrument Assembler Relationship Specialty Start Date End Date Bianka Oneill PAC [address] [place] [address] PCP - General Physician Process Lead 08/18/22 documented as of this encounter
--- OUTSIDE RECORDS SUMMARY | 2024-09-22 21:29 | XMS_ITS | Encounter Summary ---
Author Organization [facility] [employer] Care Team Providers Care Senior Director Name Role Phone Bianka Oneill Primary [...] st Contact Info) Description 10/07/2024 3:00 PM PORTABLE CANTEEN OPERATOR Office Visit [facility] Medical Group - Family Medicine [facility] [address] [place] [address] Bianka Oneill PAC [address] [place] [address] documented as of this encounter Visit Diagnoses Not on filedocumented in this encounter Additional Health Concerns Assessment Noted Time PHQ-9 Depression Total Score: 6 08/18/20 22 8:00 AM PORTABLE CANTEEN OPERATOR documented as of this encounter Care Teams Senior Director Relationship Specialty Start Date End Date Bianka Oneill PAC [address] [place] [address] PCP - General Physician Computer Systems Designer 08/18/22 documented as of this encounter
--- OUTSIDE RECORDS SUMMARY | 2024-09-22 21:29 | XMS_ITS | Encounter Summary ---
Author Organization [facility] Address [address] [facility] [place] [address] Phone Care Team Providers Care Disc Pad Grinding Machine Feeder Name Role Phone Bianka Oneill PAC Primary Care Provider + Reason for Visit * Reason Onset Date Comments Urinary Pain 03/01/2023 Urinary Urgency 03/01/2023 Encounter Details Date Type Department Care Team (Late st Contact Info) Description 03/01/2023 Nurse Triage [facility] [address] [place] [address] Bianka Oneill, PAC [address] [place] [address] Urinary Pain; Urinary Urgency Social History Tobacco [...] pain BACKGROUND: ED visit on 02/18/23 at [facility] for urinary pressure when urinating. Finished the [...] Mikie Solorio Medical Group - Family Medicine [facility] [phone] See care advice and disposition for guideline. [...] SEVERE pain with urination Protocols used: URINARY [id number], URINATION PAIN - FEMALE-A-OH STANDING ORDER AVAILABLE * Telephone Encounter - Kimberly Guzmán - 03/01/2023 12:39 PM CDT Symptom: Urine Symptoms Outcome: Transfer to triage specialist queue Reason: Severe pain when passing urine (pee) The caller accepted this outcome documented in this encounter Plan of Treatment Upcoming Encounters Date Type Department Care Team (Late st Contact Info) Description 10/07/2024 3:00 PM HYDROGEOLOGIST Office Visit [facility] Medical Group - Family [facility] [address] [place] [address] Bianka Oneill PAC [address] [place] [address] documented as of this encounter Visit Diagnoses Not on filedocumented in this encounter Additional Health Concerns Assessment Noted Time PHQ-9 Depression Total Score: 6 08/18/20 8:00 AM HYDROGEOLOGIST documented as of this encounter Care Teams Disc Pad Grinding Machine Feeder Relationship Specialty Start Date End Date Bianka Oneill PAC [address] [place] [address] PCP - General Physician Thermometer Production Worker 08/18/22 documented as of this encounter
--- OUTSIDE RECORDS SUMMARY | 2024-09-22 21:29 | XMS_ITS | Encounter Summary ---
Author Organization [facility] Address [address] [place] [address] Phone Care Team Providers Care Automotive Salesperson Name Role Phone Bianka Oneill Primary Care Provider + Reason for Referral * Consult, Test & Initiate Treatment (Routine) - Closed Specialty Diagnoses / Procedures Referred By Suzy giraldo Referred To Contact Behavioral Health Diagnoses Anxiety Bianka Oneill PAC [address] [place] [address] Phone: tel: fax: Che Dickerson, [facility] [address] [place] [address] Phone: tel: fax: Referral ID Status Reason Start Date Expiration Date Visits Re quested Visits Authorized [id number] Closed 03/23/2023 1 1 Scheduling Instructions Annalise is being referred for anxiety. Please contact patient for scheduling questions or concerns. Reason for Visit * Reason Comments Post-Hospital Follow-up Encounter Details Date Type Department Care Team (Late st Contact Info) Description 03/23/2023 3:45 PM CDT Office Visit [facility] Medical Group - [facility] [address]2 [place] [phone] JuarezBianka luz, PAC [address] [place] [address] UTI symptoms (Primary Dx); Amenorrhea; Abscess; Anxiety; [...] this encounter Progress Notes * Sandra Lira, FLAP MAKER - 03/23/2023 3:45 PM CDT Annalise [...] st Contact Info) Description 10/07/2024 3:00 PM COMPLIANCE ENGINEER Office Visit [facility] [address] [place] [address] Bianka Oneill PAC [address] [place] [address] Scheduled Orders Name Type Priority Associated Diagnoses [...] 150 ng/mL 04/17/2023 1:19 PM CDT [facility] Blood Venipuncture / Unknown 04/17/2023 9:49 AM CDT 04/17/2023 9:49 AM CDT us Pepper Reyes PAC CHEMISTRY ORDERABLES Mayela l Result [facility] [address] [place] [address] * (ABNORMAL) IRON W/IRON BINDING CAPACITY (04/17/2023 9:49 AM CDT) Pathologist [facility] IRON 39.57 37 - 145 mcg/dL 04/17/2023 1:19 PM CDT [facility] % SATURATION * 13(L) 20 - 55 % 04/17/2023 1:19 PM CDT [facility] UIBC 268 112 - 346 mcg/dL 04/17/2023 1:19 PM CDT [facility] TIBC CALC 308 149 - 491 mcg/dL 04/17/2023 1:19 PM CDT [facility] Blood Venipuncture / Unknown 04/17/2023 9:49 AM CDT 04/17/2023 9:49 AM CDT Pepper Reyes PAC CHEMISTRY ORDERABLES Mayela l Result [facility] [address] [place] [address] * (ABNORMAL) CMP (COMPREHENSIVE METABOLIC PANEL) (04/17/2023 9:49 AM CDT) Pathologist [facility] SODIUM 141 136 - 144 mmol/L 04/17/2023 1:19 PM CDT [facility] POTASSIUM 4.0 3.5 - 5.1 mmol/L 04/17/2023 1:19 PM CDT [facility] CHLORIDE 105 100 - 110 mmol/L 04/17/2023 1:19 PM CDT [facility] CO2, VENOUS 23 22 - 32 mmol/L 04/17/2023 1:19 PM CDT [facility] ANION GAP 17.0 8.0 - 20.0 mmol/L 04/17/2023 1:19 PM CDT [facility] GLUCOSE 87 70 - 99 mg/dL 04/17/2023 1:19 PM CDT [facility] BUN 9 6 - 20 mg/dL 04/17/2023 1:19 PM CDT [facility] CREATININE, BLOOD 0.53(L) 0.60 - 1.10 mg/dL 04/17/2023 1:19 PM [facility] BUN/CREATININE RATIO 17 12 - 20 ratio 04/17/2023 1:19 PM [facility] TOTAL PROTEIN 7.1 6.0 - 8.3 g/dL 04/17/2023 1:19 PM T [facility] ALBUMIN 4.4 3.5 - 5.2 g/dL 04/17/2023 1:19 PM [facility] A/G RATIO 1.6 1.0 - 2.0 04/17/2023 1:19 PM [facility] CALCIUM 9.8 8.7 - 10.5 mg/dL 04/17/2023 1:19 PM [facility] T BILI 0.2 0.2 - 1.2 mg/dL 04/17/2023 1:19 PM [facility] SGOT (AST) 15 <=32 U/L 04/17/2023 1:19 PM [facility] SGPT (ALT) 16 <=41 U/L 04/17/2023 1:19 PM [facility] ALKALINE PHOSPHATASE 83 35 - 105 U/L 04/17/2023 1:19 PM [facility] IS THE PATIENT REQUIRED TO BE FASTING? No 04/17/2023 1:19 PM [facility] GFR, ESTIMATED >60 >=60 04/17/2023 1:19 PM [facility] Comment: Creatinine Clearance is the preferred criteria for selecting drug dose adjustments in renally impaired patients. ??The GFR is provided as additional pertinent clinical information. GFR is reported in mL/min/1.73 sq m. Calculation based on the Chronic Kidney Disease Epidemiology Collaboration (CKD- EPI) equation refit without adjustment for race. UNABLE TO CALCULATE GFR, EST. 023 1:19 PM [facility] GFR, EST. NONAFRICAN 04/17/2023 1:19 PM CDT [facility] Blood Venipuncture / Unknown 04/17/2023 9:49 AM CDT 04/17/2023 9:49 AM CDT [facility] PAC CHEMISTRY ORDERABLES Mayela l Result Performing Organization Address City/[facility]/ZIP Co de Phone Number [facility] [address] [place] [address] * LACTATE DEHYDROGENASE (LD) (04/17/2023 9:49 AM CDT) LDH 155 135 - 214 U/L 04/17/2023 1:19 PM CDT [facility] Blood Venipuncture / Unknown 04/17/2023 9:49 AM CDT 04/17/2023 9:49 AM CDT [facility] PAC CHEMISTRY ORDERABLES Mayela l Result Performing Organization Address City/[facility]/ZIP Co de Phone Number [facility] [address] [place] [address] * CULTURE, AEROBIC (03/23/2023 5:09 PM CDT) CULTURE RESULTS METHICILLIN RESISTANT STAPHYLOCOCCUS AUREUS 03/26/2023 9:24 AM CDT [facility] Culture EXUDATE / Unknown Non-Phlebotomy Collection [...] mcg/ml: Resistant Methicillin Resistant Staph aureus Tetracycline [facility] II <=1 mcg/ml: Susceptible Methicillin Resistant Staph aureus Trimeth/Sulfamethoxazol e [facility] II <=10 mcg/ml: Susceptible Methicillin Resistant Staph aureus Vancomycin [facility] II <=0.5 mcg/ml: Susceptible Bianka Diasrich [facility] MICROBIOLOGY - GENERAL O RDERABLES Final Result Performing Organization Address [facility] Co de Phone Number [facility] [address] [place] [address], [place] * CULTURE, URINE (03/23/2023 5:04 PM CDT) [facility] CULTURE RESULTS MIXED GROWTH OF ONE OR MORE DISTAL URETHRAL CONTAMINANTS 03/25/2023 11:[address] [facility] Urine URINE SPECIMEN COLLECTION, CLEAN CATCH / Unknown Non-Phlebotomy Collection / Unknown 03/23/2023 5:04 PM CDT 03/23/2023 5:[address] [facility] MICROBIOLOGY - GENERAL O RDERABLES Final Result Performing Organization Address [facility] de Phone Number [facility] [address] [place] [address], [place] * (ABNORMAL) URINALYSIS REFLEX IF INDICATED BY ABNORMAL RESULTS (03/23/2023 5:04 PM CDT) [facility] SPECIFIC GRAVITY 1.010 1.003 - 1.030 03/23/2023 9:11 PM CDT [facility] URINE PH 8.0 5.0 - 9.0 03/23/2023 9:11 PM CDT [facility] WBC ESTERASE 500 /uL(A) Negative 03/23/2023 9:11 PM CDT [facility] NITRITE Negative Negative 03/23/2023 9:11 PM CDT [facility] PROTEIN, RANDOM URINE 15 mg/dL(A) Negative 03/23/2023 9:11 PM CDT [facility] URINE GLUCOSE, QUAL Negative Negative 03/23/2023 9:11 PM CDT [facility] URINE KETONES 5 mg/dL(A) Negative 03/23/2023 9:11 PM CDT [facility] UROBILINOGEN Normal Normal mg/dL 03/23/2023 9:11 PM CDT [facility] URINE BLOOD 10 /uL(A) Negative terry/ul 03/23/2023 9:11 PM CDT [facility] URINALYSIS COLOR Yellow 03/23/20 9:11 PM CDT [facility] URINALYSIS CLARITY Slightly Cloudy 03/23/2023 9:11 PM CDT [facility] WBC (Urine) 6-10(A) Negative, 0-5 /hpf 03/23/2023 9:11 PM CDT [facility] URINE RBC'S 0-2 Negative, 0-2 /hpf 03/23/2023 9:11 PM CDT [facility] EPITHELIAL CELLS Large amount squamous /lpf 03/23/2023 9:11 PM CDT [facility] BACTERIA, URINE Moderate(A) Negative /hpf 03/23/2023 9:11 PM CDT [facility] Urine URINE SPECIMEN COLLECTION, CLEAN CATCH / Unknown Non-Phlebotomy Collection / Unknown 03/23/2023 5:04 PM CDT 03/23/2023 5:04 PM CDT us Bianka Oneill PAC URINE ORDERABLES Final R esult [facility] [address] [place] [address] * (ABNORMAL) POCT UA AUTOMATED W/O MICRO [...] Urine 03/23/2023 3:[address] [facility] POINT OF CARE TESTING (M ANUAL) Final Result * POCT URINE HCG () (03/23/2023 3:58 PM CDT) POC URINE Negative POC URINE CONTROL Hypercil Core Transformer Assembler Pass Urine 03/23/2023 3:58 PM CDT Result [facility] Bianka Oneill [facility] POINT OF CARE TESTING (M ANUAL) Final Result documented in this encounter Visit Diagnoses Diagnosis UTI symptoms- Primary Amenorrhea Absence of menstruation Abscess Cellulitis and abscess of unspecified site Anxiety Anxiety state, unspecified Anxiety and depression Dysthymic disorder Anemia, unspecified type documented in this encounter Additional Health Concerns Assessment Noted Time PHQ-9 Depression Total Score: 6 08/18/20 22 8:00 AM COMPLIANCE ENGINEER documented as of this encounter Care Teams Automotive Salesperson Relationship Specialty Start Date End Date Bianka Oneill PAC [address] [place] [address] PCP - General Physician Watermaster 08/18/22 documented as of this encounter
--- OUTSIDE RECORDS SUMMARY | 2024-09-22 21:29 | XMS_ITS | Encounter Summary ---
Author Organization [facility] Address [address] [place] [address] Phone Care Team Providers Care Lab Analyst Name Role Phone Bianka Oenill Primary Care Provider + Encounter Details Date Type Department Care Team (Late st Contact Info) Description 04/17/2023 10:40 AM CDT Lab [facility] [address] [facility] [address] [place] [address] Bia Lakin Lab/Ancillary Generalized abdominal pain Discharge Disposition: Discharged [...] Specimen collected from left antecubital without incident. [facility] documented in this encounter Plan of Treatment Upcoming Encounters Date Type Department Care Team (Late st Contact Info) Description 10/07/2024 3:00 PM BORE MILL OPERATOR Office Visit [facility] [address] [place] [address] Bianka Oneill, PAC [address] [place] [address] documented as of this encounter Procedures Procedure [...] B STREPTOCOCCUS 04/19/2023 12:[address] [facility] Comment: DRUG OF CHOICE IS AMPICILLIN OR PENICILLIN ALSO MIXED GROWTH OF DISTAL URETHRA CONTAMINANTS. Urine URINE SPECIMEN COLLECTION, CLEAN CATCH / Unknown Non-Phlebotomy Collection / Unknown 04/17/2023 9:49 AM CDT 04/17/2023 9:49 AM CDT us Bianka Oneill PAC MICROBIOLOGY - GENERAL O RDERABLES Final Result [facility] [address] [place] [address], [place] * (ABNORMAL) URINALYSIS REFLEX IF INDICATED BY ABNORMAL RESULTS (04/17/2023 9:49 AM CDT) SPECIFIC GRAVITY 1.015 1.003 - 1.030 04/17/2023 1:11 PM CDT [facility] URINE PH 7.0 5.0 - 9.0 04/17/2023 1:11 PM CDT [facility] WBC ESTERASE 25 /ul(A) Negative 04/17/2023 1:11 PM CDT [facility] NITRITE Negative Negative 04/17/2023 1:11 PM CDT [facility] PROTEIN, RANDOM URINE 15 mg/dL(A) Negative 04/17/2023 1:11 PM CDT [facility] URINE GLUCOSE, QUAL Negative Negative 04/17/2023 1:11 PM CDT [facility] URINE KETONES Negative Negative 04/17/2023 1:11 PM CDT [facility] UROBILINOGEN Normal Normal mg/dL 04/17/2023 1:11 PM CDT [facility] URINE BLOOD Negative Negative carter/ul 04/17/2023 1:11 PM CDT [facility] URINALYSIS COLOR Yellow 04/17/20 23 1:11 PM CDT [facility] URINALYSIS CLARITY Slightly Cloudy 04/17/2023 1:11 PM CDT [facility] WBC (Urine) 6-10(A) Negative, 0-5 /hpf 04/17/2023 1:11 PM CDT [facility] URINE RBC'S 0-2 Negative, 0-2 /hpf 04/17/2023 1:11 PM CDT [facility] EPITHELIAL CELLS Large amount squamous /lpf 04/17/2023 1:11 PM CDT [facility] BACTERIA, URINE Few(A) Negative /hpf 04/17/2023 1:11 PM CDT [facility] CRYSTALS Calcium oxalate 04/17/2023 1:11 PM CDT [facility] Urine URINE SPECIMEN COLLECTION, CLEAN CATCH / Unknown Non-Phlebotomy Collection / Unknown 04/17/2023 9:49 AM CDT 04/17/2023 9:49 AM CDT us Josie Fritcher PAC URINE ORDERABLES Final R esult Performing Organization Address City/[facility] [address]/ZIP Co de Phone Number [facility] [address] [place] [address] * LIPASE (04/17/2023 9:49 AM CDT) LIPASE 28.7 13 - 60 U/L 04/17/2023 1:19 PM CDT [facility] Blood Venipuncture / Unknown 04/17/2023 9:49 AM CDT 04/17/2023 9:49 AM CDT us JosieBety Oneill PAC CHEMISTRY ORDERABLES Fin al Result Performing Organization Address City/[facility] [address]/ZIP Co de Phone Number [facility] [address] [place] [address] * AMYLASE (04/17/2023 9:49 AM CDT) AMYLASE 34 28 - 100 U/L 04/17/2023 1:19 PM CDT [facility] Blood Venipuncture / Unknown 04/17/2023 9:49 AM CDT 04/17/2023 9:49 AM CDT us Bianka Diasrich PAC CHEMISTRY ORDERABLES Fin al Result Performing Organization Address City/[facility] [address]/ZIP Co de Phone Number [facility] [address] [place] [address] documented in this encounter Visit Diagnoses Diagnosis Generalized abdominal pain Abdominal pain, generalized documented in this encounter Additional Health Concerns Infection Onset Date Last Indicated Resolved Time 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
--- OUTSIDE RECORDS SUMMARY | 2024-09-22 21:29 | XMS_ITS | Encounter Summary ---
Author Organization [facility] Address [address] [place] [address] Phone Care Team Providers Care Gas Specialist Name Role Phone Bianka Oneill Primary Care Provider + Reason for Visit * Reason Onset Date Comments Prior Authorization 02/27/2023 Encounter Details Date Type Department Care Team (Late st Contact Info) Description 02/27/2023 Telephone [facility] [address] [place] [address] Bianka Oneill PAC [address] [place] [address] Prior Authorization Social History Tobacco Use Types [...] st Contact Info) Description 10/07/2024 3:00 PM RESEARCH AGRICULTURAL ENGINEER Office Visit [facility] [address] [place] [address] Bianka Oneill, PAC [address] [place] [address] documented as of this encounter Visit Diagnoses Not on filedocumented in this encounter Additional Health Concerns Assessment Noted Time PHQ-9 Depression Total Score: 6 08/18/20 22 8:00 AM RESEARCH AGRICULTURAL ENGINEER documented as of this encounter Care Teams Gas Specialist Relationship Specialty Start Date End Date Bianka Oneill PAC [address] [place] [address] PCP - General Physician Associate Dean Of Students 08/18/22 documented as of this encounter
--- OUTSIDE RECORDS SUMMARY | 2024-09-22 21:29 | XMS_ITS | Encounter Summary ---
Author Organization [facility] [employer] Care Team Providers Care Carpenter Helper Name Role Phone Bianka Oneill Primary [...] Info) Description 10/07/2024 3:00 PM DIRECTOR OF ELEMENTARY EDUCATION Office Visit [facility] [address] [place] [address] Bianka Oneill, PAC [address] [place] [address] documented as of this encounter Visit Diagnoses Not on filedocumented in this encounter Additional Health Concerns Assessment Noted Time PHQ-9 Depression Total Score: 6 08/18/20 22 8:00 AM DIRECTOR OF ELEMENTARY EDUCATION documented as of this encounter Care Teams Carpenter Helper Relationship Specialty Start Date End Date Bianka Oneill PAC [address] [place] [address] PCP - General Physician Support Specialist 08/18/22 documented as of this encounter
--- OUTSIDE RECORDS SUMMARY | 2024-09-22 21:29 | XMS_ITS | Encounter Summary ---
Author Organization [facility] Address [address] [place] [address] Phone Care Team Providers Care Court Assistant Name Role Phone Bianka Oneill Primary Care Provider + Reason for Visit * Reason Onset Date Comments Appointment 03/09/2023 Encounter Details Date Type Department Care Team (Late st Contact Info) Description 03/09/2023 Telephone [facility] [address] [place] [address] Bianka Oneill, YARED [address] [place] [address] Appointment Social History Tobacco Use Types Packs/Day [...] 2004 Caller name: Annalise Caller phone #: [phone] Annalise is needing a follow up visit after discharge from [facility] for serotonin syndrome Patient needs to be seen within 1 week of discharge/ED visit. Please call Annalise back at [phone] or [phone] to schedule the appointment. Patient prefers to see Bianka Oneill if possible documented in this encounter Plan of Treatment Upcoming Encounters Date Type Department Care Team (Late st Contact Info) Description 10/07/2024 3:00 PM X RAY SERVICE TECHNICIAN Office Visit [facility] Medical Group - Family Medicine [facility] [address] [place] [address] Bianka Oneill PAC [address] [place] [address] documented as of this encounter Visit Diagnoses Not on filedocumented in this encounter Additional Health Concerns Assessment Noted Time PHQ-9 Depression Total Score: 6 08/18/20 8:00 AM X RAY SERVICE TECHNICIAN documented as of this encounter Care Teams Court Assistant Relationship Specialty Start Date End Date Bianka Oneill PAC [address] [place] [address] PCP - General Physician Cardiology Consultants 08/18/22 documented as of this encounter
--- OUTSIDE RECORDS SUMMARY | 2024-09-22 21:29 | XMS_ITS | Encounter Summary ---
Author Organization [facility] Address [address] [place] [address] Phone Care Team Providers Care Restaurant Front Manager Name Role Phone Bianka Oneill Primary Care Provider + Reason for Visit * Reason Comments Rash Encounter Details Date Type Department Care Team (Latest Contact Info) Description 03/15/2023 9:30 AM CDT Urgent Care Visit [facility] [place] [address] [place] [address] Archana Mott, GIANNI, CORPORATE TUTOR [address] [place] [address] Folliculitis (Primary Dx) Discharge Disposition: [...] be sent through Care Everywhere. * Folliculitis (Tuvaluan) documented in this encounter Progress Notes [...] is a 17 y.o. female in the [facility] care today for rash and a swollen [...] Contact Info) Description 10/07/2024 3:00 PM TEST DESK OPERATOR Office Visit [facility] [address] [place] [address] Bianka Oneill PAC [address] [place] [address] documented as of this encounter Visit Diagnoses Diagnosis Folliculitis- Primary Other specified disease of hair and hair follicles documented in this encounter Additional Health Concerns Assessment Noted Time PHQ-9 Depression Total Score: 6 08/18/20 22 8:00 AM TEST DESK OPERATOR documented as of this encounter Care Teams Restaurant Front Manager Relationship Specialty Start Date End Date Bianka Oneill PAC [address] [place] [address] PCP - General Physician Link Cutter 08/18/22 documented as of this encounter
--- OUTSIDE RECORDS SUMMARY | 2024-09-22 21:30 | XMS_ITS | Encounter Summary ---
Author Organization [facility] [employer] Care Team Providers Care Plant Cytologist Name Role Phone Bianka Oneill Primary Care [...] st Contact Info) Description 10/07/2024 3:00 PM SITE MANAGER Office Visit [facility] Medical Group - Family Medicine [facility] [address] [place] [address] Bianka Oneill PAC [address] [place] [address] documented as of this encounter Visit Diagnoses Not on filedocumented in this encounter Additional Health Concerns Assessment Noted Time PHQ-9 Depression Total Score: 6 08/18/20 22 8:00 AM SITE MANAGER documented as of this encounter Care Teams Plant Cytologist Relationship Specialty Start Date End Date Bianka Oneill PAC [address] [place] [address] PCP - General Physician Kiln Transfer Operator 08/18/22 documented as of this encounter
--- OUTSIDE RECORDS SUMMARY | 2024-09-22 21:30 | XMS_ITS | Encounter Summary ---
Author Organization [facility] [employer] Care Team Providers Care Recruiting Scheduler Name Role Phone Bianka Oneill Primary [...] st Contact Info) Description 10/07/2024 3:00 PM EGG PRODUCER Office Visit [facility] Medical Group - Family Medicine [facility] [address] [place] [address] Bianka Oneill PAC [address] [place] [address] documented as of this encounter Visit Diagnoses Not on filedocumented in this encounter Additional Health Concerns Assessment Noted Time PHQ-9 Depression Total Score: 6 08/18/20 22 8:00 AM EGG PRODUCER documented as of this encounter Care Teams Recruiting Scheduler Relationship Specialty Start Date End Date Bianka Oneill PAC [address] [place] [address] PCP - General Physician Threading Machine Feeder Automatic 08/18/22 documented as of this encounter
--- OUTSIDE RECORDS SUMMARY | 2024-09-22 21:30 | XMS_ITS | Encounter Summary ---
Author Organization [facility] Address [address] [place] [address] Phone Care Team Providers Care Utility Bag Assembler Name Role Phone Bianka Oneill Primary Care Provider + Reason for Visit * Reason Comments Follow-up 2 month f/u Encounter Details Date Type Department Care Team (Late st Contact Info) Description 11/29/2022 8:45 AM CDT Office Visit [facility] Medical Group - Family [facility] [address] [place] [address] Bianka Oneill PAC [address] [place] [address] Anxiety and depression (Primary Dx); Iron deficiency [...] 11/29/2022 8:4 0 AM CDT Growth Chart: [facility] (Girls, 2- 20 Years) documented in this [...] problems If still low consider referral to senior etl developer for follow up Continue with oral iron at this time documented in this encounter Plan of Treatment Upcoming Encounters Date Type Department Care Team (Late st Contact Info) Description 10/07/2024 3:00 PM IMPROVEMENT INTERN Office Visit [facility] Medical Group - [facility] [address] [place] [address] Bianka Oneill PAC [address] [place] [address] documented as of this encounter Results * (ABNORMAL) CMP (COMPREHENSIVE METABOLIC PANEL) (11/29/2022 9:51 AM CDT) SODIUM 141 136 - 144 mmol/L 11/29/2022 10:54 AM CDT [facility] POTASSIUM 3.8 3.5 - 5.1 mmol/L 11/29/2022 10:54 AM CDT [facility] CHLORIDE 106 100 - 110 mmol/L 11/29/2022 10:54 AM CDT [facility] CO2, VENOUS 24 22 - 32 mmol/L 11/29/2022 10:54 AM CDT [facility] ANION GAP 14.8 8.0 - 20.0 mmol/L 11/29/2022 10:54 AM CDT [facility] GLUCOSE 91 70 - 99 mg/dL 11/29/2022 10:54 AM CDT [facility] BUN 7 6 - 20 mg/dL 11/29/2022 10:54 AM CDT [facility] CREATININE, BLOOD 0.48 0.40 - 1.00 mg/dL 11/29/2022 10:54 AM CDT [facility] BUN/CREATININE RATIO 15 12 - 20 ratio 11/29/2022 10:54 AM CDT [facility] TOTAL PROTEIN 7.2 6.0 - 8.3 g/dL 11/29/2022 10:54 AM CDT [facility] ALBUMIN 4.4 3.5 - 5.2 g/dL 11/29/2022 10:54 AM CDT [facility] A/G RATIO 1.6 1.0 - 2.0 11/29/2022 10:54 AM CDT [facility] CALCIUM 9.5 8.9 - 10.3 mg/dL 11/29/2022 10:54 AM CDT [facility] T BILI <0.3 <=1.2 mg/dL 11/29/2022 10:54 AM CDT [facility] SGOT (AST) 16 <=32 U/L 11/29/2022 10:54 AM CDT [facility] SGPT (ALT) 14 <=41 U/L 11/29/2022 10:54 AM CDT [facility] ALKALINE PHOSPHATASE 98(H) 45 - 87 U/L 11/29/2022 10:54 AM CDT [facility] IS THE PATIENT REQUIRED TO BE FASTING? No 11/29/2022 10:54 AM CDT [facility] GFR, ESTIMATED >60 >=60 11/29/2022 10:54 AM CDT [facility] Comment: Creatinine Clearance is the preferred criteria for selecting drug dose adjustments in renally impaired patients. ??The GFR is provided as additional pertinent clinical information. GFR is reported in mL/min/1.73 sq m. Calculation based on the Chronic Kidney Disease Epidemiology Collaboration (CKD- EPI) equation refit without adjustment for race. UNABLE TO CALCULATE GFR, EST. 023 10:54 AM CDT [facility] GFR, EST. NONAFRICAN 11/29/2022 10:54 AM CDT [facility] Blood Venipuncture / Unknown 11/29/2022 9:51 AM CDT 11/29/2022 9:57 AM CDT us Bianka Oneill PAC CHEMISTRY ORDERABLES Fin al Result [facility] [address] [place] [address] * (ABNORMAL) FERRITIN (11/29/2022 9:51 AM CDT) FERRITIN 5(L) 13 - 150 ng/mL 11/29/2022 10:54 AM CDT [facility] Blood Venipuncture / Unknown 11/29/2022 9:51 AM CDT 11/29/2022 9:57 AM CDT us Bianka Oneill PAC CHEMISTRY ORDERABLES Fin al Result Performing Organization Address City/[facility]/ZIP Co de Phone Number [facility] [address] [place] [address] * (ABNORMAL) IRON W/IRON BINDING CAPACITY (11/29/2022 9:51 AM CDT) IRON 14.46(L) 37 - 145 mcg/dL 11/29/2022 10:54 AM CDT [facility] % SATURATION * 4(L) 20 - 55 % 11/29/2022 10:54 AM CDT [facility] UIBC 350(H) 112 - 346 mcg/dL 11/29/2022 10:54 AM CDT [facility] TIBC CALC 364 149 - 491 mcg/dL 11/29/2022 10:54 AM CDT [facility] Blood Venipuncture / Unknown 11/29/2022 9:51 AM CDT 11/29/2022 9:57 AM CDT us Bianka Oneill PAC CHEMISTRY ORDERABLES Fin al Result Performing Organization Address [facility] de Phone Number [facility] [address] [place] [address] documented in this encounter Visit Diagnoses Diagnosis Anxiety and depression- Primary Dysthymic disorder Iron deficiency anemia, unspecified iron deficiency anemia type documented in this encounter Additional Health Concerns Assessment Noted Time PHQ-9 Depression Total Score: 6 08/18/20 22 8:00 AM IMPROVEMENT INTERN documented as of this encounter Care Teams Utility Bag Assembler Relationship Specialty Start Date End Date Bianka Oneill PAC [address] [place] [address] PCP - General Physician Cycle Analyst 08/18/22 documented as of this encounter
--- OUTSIDE RECORDS SUMMARY | 2024-09-22 21:30 | XMS_ITS | Encounter Summary ---
Author Organization [facility] Address [address] [place] [address] Phone Care Team Providers Care It Coordinator Name Role Phone Bianka Oneill Primary Care Provider + Reason for Visit * Reason Comments Preventive Care Encounter Details Date Type Department Care Team (Late st Contact Info) Description 01/13/2023 1:45 PM CDT Office Visit [facility] Medical Group - Family [facility] [address] [place] [address] Bianka Oneill PAC [address] [place] [address] Well adult exam (Primary Dx); Encounter for [...] 01/13/2023 1:3 2 PM CDT Growth Chart: [facility] (Girls, 2- 20 Years) documented in this [...] Contact Info) Description 10/07/2024 3:00 PM MANAGER BEHAVIOR Office Visit [facility] [address] [place] [address] Bianka Oneill PAC [address] [place] [address] documented as of this encounter Procedures Procedure Name Priority Date/Time Associated Diagnosis Comments TB INTRADERMAL TEST Routine 01/16/2023 Screening-pulmonary TB documented in this encounter Results * TB INTRADERMAL TEST (01/16/2023) TB SKIN TEST negative [facility]2023 [facility] POINT OF CARE TESTING (M ANUAL) Final Result * RUBELLA IMMUNITY IGG (01/13/2023 2:59 PM CDT) Pathologist [facility] RUBELLA IMMUNITY Immune Immune, Invalid 01/14/2023 2:36 AM CDT [facility] Blood Venipuncture / Unknown 01/13/2023 2:59 PM CDT 01/13/2023 3:09 PM CDT Narrative [facility] - 01/14/2023 2:36 AM CDT Antibody testing was performed by multiplex flow immunoassay on the BioPlex platform. [facility] CHEMISTRY ORDERABLES Fin al Result Performing Organization Address City/State/[facility] Co de Phone Number [facility] [address] [place] [address], * MUMPS IGG (01/13/2023 2:59 PM CDT) Pathologist [facility] Mumps Ab IgG 2.5 >=1.1 AI 01/14/2023 2:36 AM CDT [facility] Blood Venipuncture / Unknown 01/13/2023 2:59 PM CDT 01/13/2023 3:09 PM CDT Narrative [facility] - 01/14/2023 2:36 AM CDT <= 0.8 Negative. ??No detectable Mumps IgG antibody. 0.9 - 1.0 Equivocal >=1.1 Positive Antibody testing was performed by multiplex flow immunoassay on the BioPlex platform. us Josie Fritcher PAC IMMUNOLOGY ORDERABLES Fi nal Result Performing Organization Address [facility] Co de Phone Number [facility] [address] [place] [address], [place] * RUBEOLA (MEASLES) IGG (01/13/2023 2:59 PM CDT) MEASLES AB IGG 4.3 >=1.1 AI 01/14/2023 2:36 AM CDT [facility] Blood Venipuncture / Unknown 01/13/2023 2:59 PM CDT 01/13/2023 3:09 PM CDT Narrative [facility] - 01/14/2023 2:36 AM CDT <= 0.8 Negative. ??No detectable Measles IgG antibody. 0.9 - 1.0 Equivocal >=1.1 Positive Antibody testing was performed by multiplex flow immunoassay on the BioPlex platform. Josie Fritcher PAC IMMUNOLOGY ORDERABLES Fi nal Result Performing Organization Address [facility] Co de Phone Number [facility] [address] [place] [address], [place] * (ABNORMAL) HERPES ZOSTER (VARICELLA) IGG (01/13/2023 2:59 PM CDT) VARICELLA ZOSTER IGG 1.0(L) >=1.1 AI 01/14/2023 2:36 AM CDT [facility] Blood Venipuncture / Unknown 01/13/2023 2:59 PM CDT 01/13/2023 3:09 PM CDT Narrative [facility] - 01/14/2023 2:36 AM CDT <= 0.8 Negative. ??No detectable VZV IgG antibody. 0.9 - 1.0 Equivocal >=1.1 Positive Antibody testing was performed by multiplex flow immunoassay on the BioPlex platform. Bianka Diasrich PAC IMMUNOLOGY ORDERABLES Fi nal Result Performing Organization Address City/[facility] Co de Phone Number [facility] [address] [place] [address], [place] documented in this encounter Visit Diagnoses [...] Total Score: 6 08/18/20 22 8:00 AM MANAGER BEHAVIOR documented as of this encounter Care Teams It Coordinator Relationship Specialty Start Date End Date Bianka Oneill PAC [address] [place] [address] PCP - General Physician Motor Winder 08/18/22 documented as of this encounter
--- OUTSIDE RECORDS SUMMARY | 2024-09-22 21:30 | XMS_ITS | Encounter Summary ---
Author Organization [facility] [employer] Care Team Providers Care Knife Sharpener Name Role Phone Bianka Oneill Primary Care [...] st Contact Info) Description 10/07/2024 3:00 PM SOFTWARE CONFIGURATION MANAGER Office Visit [facility] Medical Group - Family [facility] [address] [place] [address] Bianka Oneill PAC [address] [place] [address] documented as of this encounter Visit Diagnoses Not on filedocumented in this encounter Additional Health Concerns Assessment Noted Time PHQ-9 Depression Total Score: 6 08/18/20 22 8:00 AM SOFTWARE CONFIGURATION MANAGER documented as of this encounter Care Teams Knife Sharpener Relationship Specialty Start Date End Date Bianka Oneill PAC [address] [place] [address] PCP - General Physician Psychology Physician 08/18/22 documented as of this encounter
--- OUTSIDE RECORDS SUMMARY | 2024-09-22 21:30 | XMS_ITS | Encounter Summary ---
Author Organization [facility] Address [address] [place] [address] Phone Care Team Providers Care Sweetbread Trimmer Name Role Phone Bianka Oneill Primary Care Provider + Suresh Gleason MD Unavailable Reason for Visit * Reason Comments Medication Refill Encounter Details Date Type Department Care Team (Late st Contact Info) Description 10/29/2022 Refill [facility] [address] [place] [address] Bianka Oneill PAC [address] [place] [address] Medication Refill Social History Tobacco Use Types [...] Coronavirus/COVID-19? No / Unsure 10/29/2022 10:54 AM CAMPGROUND ATTENDANT documented as of this encounter Miscellaneous Notes * Telephone Encounter - Bianka Oneill PAC - 11/25/2022 12:27 PM CAMPGROUND ATTENDANT Duplicate GROUND ATTENDANT * Telephone Encounter - Liset Fisher RN [...] order placed on 09/30/2022 4:17 PM Order [id number]: celecoxib (CeleBREX) 200 MG Capsule (For orders [...] 08/18/22 Office Visit Bianka Oneill PAC [facility] Showing recent visits within past 365 days [...] 10/29/2022 38.0 36.0 - 47.0 % Final GROUND ATTENDANT documented in this encounter Plan of Treatment Upcoming Encounters Date Type Department Care Team (Late st Contact Info) Description 10/07/2024 3:00 PM CAMPGROUND ATTENDANT Office Visit [facility] Medical Group - Family [facility] [address] [place] [address] Bianka Oneill PAC [address] [place] [address] documented as of this encounter Visit Diagnoses Not on filedocumented in this encounter Additional Health Concerns Infection Onset Date Last Indicated Resolved Time 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
--- OUTSIDE RECORDS SUMMARY | 2024-09-22 21:30 | XMS_ITS | Encounter Summary ---
Author Organization [facility] Address [address] [place] [address] Phone Care Team Providers Care Windows Architect Name Role Phone Bianka Oneill PAC Primary Care Provider + Reason for Visit * Reason Comments Vaginal Bleeding () Encounter Details Date Type Department Care Team (Late st Contact Info) Description 10/29/2022 10:57 AM VETERINARY RECEPTIONIST - 10/29/2022 1:05 PM VETERINARY RECEPTIONIST Emergency [facility] [address] [place] [id number] Virgen Harvey, PAC [address] [place] [address] Hypokalemia Discharge Disposition: Discharged to home or [...] Coronavirus/COVID-19? No / Unsure 10/29/2022 10:54 AM VETERINARY RECEPTIONIST documented as of this encounter Last Filed Vital Signs Vital Sign Reading Time Taken Comments Blood Pressure 151/91 10/29/2022 10:54 AM VETERINARY RECEPTIONIST Pulse 82 10/29/2022 1:03 PM VETERINARY RECEPTIONIST Temperature 36.4 ??C (97.5 ??F) 10/29/2022 10:[address] Respiratory Rate 18 10/29/2022 1:03 PM VETERINARY RECEPTIONIST Oxygen Saturation 100% 10/29/2022 1:03 PM VETERINARY RECEPTIONIST Inhaled Oxygen Concentration - - Weight 99.8 kg (220 lb) 10/29/2022 10:54 AM VETERINARY RECEPTIONIST Height 160 cm (5' 3 ) 10/29/2022 10:54 AM VETERINARY RECEPTIONIST Body Mass Index 38.97 10/29/2022 10:54 AM VETERINARY RECEPTIONIST Body Mass Index Percentile 98.69% 10/29/2022 10: 54 AM VETERINARY RECEPTIONIST Growth Chart: [facility] (Girls, 2- 20 Years) documented in this encounter Discharge Instructions * Discharge Instructions* Virgen Harvey PAC - 10/29/2022 12:44 PM VETERINARY RECEPTIONIST Please follow up with your obgyn. Return for reevaluation if your symptoms change or worsen. RINARY RECEPTIONIST * Attachments The following attachments cannot be sent through Care Everywhere. * Hypokalemia (Sudanese) documented in this encounter Medications at Time [...] noted. SL D/C'ed with Ildefonso cath intact. RINARY RECEPTIONIST * Virgen Harvey PAC - 10/29/2022 12:45 [...] References Ranges 4 wks [id number] 5 wks [phone] 6 wks [phone] 7 wks [phone] 8 wks [id number] 9 wks [id number] 10 wks [id number] 14 wks [id number] 15 wks [id number] 16 wks [id number] 17 wks [id number] 18 wks [phone] 19 wks [phone] Non- Female: 0-4 CULTURE, URINE COMPLETE BLOOD COUNT (CBC) WITH DIFF Narrative: The following orders were created for panel order CBC with Diff [id number]. Procedure Abnormality Status --------- ------ CBC with Auto Differential[[id number]] Abnormal Final result Please view results for these tests on the individual orders. TYPE & SCREEN (CROSSMATCH CONVERTIBLE) CMP (Comprehensive Metabolic Panel) Final Result CBC with Diff [id number] Final Result HCG Beta Subunit Serum Quant [...] References Ranges 4 wks [id number] 5 wks [phone] 6 wks [phone] 7 wks [id number] 8 wks [id number] 9 wks [id number] 10 wks [id number] 14 wks [id number] 15 wks [id number] 16 wks [id number] 17 wks [id number] 18 wks [phone] 19 wks [id number] Non- Female: 0-4 CULTURE, URINE COMPLETE BLOOD COUNT (CBC) WITH DIFF Narrative: The following orders were created for panel order CBC with Diff [id number]. Procedure Abnormality Status --------- ------ CBC with Auto Differential[[id number]] Abnormal Final result Please view results for [...] Caridad Abdul MD at 10/29/2022 5:44 PM VETERINARY RECEPTIONIST RINARY RECEPTIONIST RINARY RECEPTIONIST * Osiris Rodriguez RN - 10/29/2022 12:24 PM CST Pt medicated per provider orders. Pt educated on intended effects and side effects of medication and verbalized understanding, able to provide teach back of education. RINARY RECEPTIONIST * Osiris Rodriguez RN - 10/29/2022 11:22 AM CST Patient is resting in room with call light at bedside. Patient informed about wait time and verbalizes understanding. Patient denies needs at this time and verbalizes understanding that RN will complete hourly rounding. RINARY RECEPTIONIST * Osiris Rodriguez RN - 10/29/2022 11:21 AM CST Virgen Harvey at bedside RINARY RECEPTIONIST * Allyson Turner RN - 10/29/2022 10:52 AM CST Patient to triage with c/o vaginal bleeding while . States she took four tests on10/19, all positive, and yesterday she began spotting. States today she began bleeding heavily with clots. Estimates saturating 1 pad per hour. RINARY RECEPTIONIST documented in this encounter Plan of Treatment Upcoming Encounters Date Type Department Care Team (Late st Contact Info) Description 10/07/2024 3:00 PM VETERINARY RECEPTIONIST [facility] Visit [facility] [address] [place] [address] Bianka Oneill, PAC [address] [place] [address] documented as of this encounter Procedures Procedure Name Priority Date/Time Associated Diagnosis Comments URINALYSIS REFLEX IF INDICATED BY ABNORMAL RESULTS STAT 10/29/2022 11:10 AM VETERINARY RECEPTIONIST CBC WITH AUTO DIFFERENTIAL STAT 10/29/2022 11:10 AM VETERINARY RECEPTIONIST TYPE & SCREEN (CROSSMATCH CONVERTIBLE) STAT 10/29/2022 11:10 AM VETERINARY RECEPTIONIST HCG BETA SUBUNIT SERUM QUANT STAT 10/29/2022 11:10 AM VETERINARY RECEPTIONIST CULTURE, URINE STAT 10/29/2022 11:10 AM VETERINARY RECEPTIONIST CMP (COMPREHENSIVE METABOLIC PANEL) STAT 10/29/2022 11:10 AM VETERINARY RECEPTIONIST COMPLETE BLOOD COUNT (CBC) WITH DIFF STAT 10/29/2022 11:10 AM VETERINARY RECEPTIONIST documented in this encounter Results * Culture, Urine (10/29/2022 11:10 AM VETERINARY RECEPTIONIST) CULTURE RESULTS MIXED GROWTH OF 3 OR MORE ORGANISMS, PROBABLE COLLECTION CONTAMINATION, SUGGEST REPEAT URINE CULTURE. 10/30/2022 7:[address] [facility] Urine URINE SPECIMEN COLLECTION, CLEAN CATCH / Unknown Non-Phlebotomy Collection / Unknown 10/29/2022 11:10 AM VETERINARY RECEPTIONIST 10/29/2022 11:30 AM VETERINARY RECEPTIONIST us Virgen Mclaughlin Page PAC MICROBIOLOGY - GENERAL ORDER BETTY Final Result [facility] [address] [place] [address], [place] * (ABNORMAL) CBC with Auto Differential (10/29/2022 11:10 AM VETERINARY RECEPTIONIST) WBC 10.61 4.00 - 12.00 10(3)/[facility] 10/29/2022 12:12 PM [facility] RBC 5.32(H) 3.80 - 5.30 10(6)/[facility] 10/29/2022 12:12 PM [facility] HEMOGLOBIN (HGB) 11.3(L) 12.0 - 15.8 g/dL 10/29/2022 12:12 PM [facility] HEMATOCRIT (HCT) 38.0 36.0 - 47.0 % 10/29/2022 12:12 PM [facility] MCV 71.4(L) 82.0 - 96.0 fL 10/29/2022 12:12 PM [facility] MCH 21.2(L) 26.0 - 34.0 pg 10/29/2022 12:12 PM [facility] MCHC 29.7(L) 31.0 - 36.0 g/dL 10/29/2022 12:12 PM [facility] PLATELET COUNT 300 140 - 440 10(3)/[facility] 10/29/2022 12:12 PM [facility] RDW 22.5(H) 11.8 - 15.5 % 10/29/2022 12:12 PM [facility] MPV 10.3 9.7 - 12.4 fL 10/29/2022 12:12 PM [facility] NEUTROPHILS 58.3 47.0 - 73.0 % 10/29/2022 12:12 PM [facility] LYMPHOCYTES 33.9 18.0 - 42.0 % 10/29/2022 12:12 PM [facility] MONOCYTES 6.1 4.0 - 12.0 % 10/29/2022 12:12 PM [facility] EOSINOPHILS 1.0 0.0 - 5.0 % 10/29/2022 12:12 PM [facility] BASOPHILS 0.7 0.0 - 1.0 % 10/29/2022 12:12 PM [facility] ABSOLUTE NEUTROPHILS 6.18 1.60 - 7.70 10(3)/[facility] 10/29/2022 12:12 PM [facility] ABSOLUTE LYMPHOCYTES 3.60(H) 1.30 - 3.20 10(3)/[facility] 10/29/2022 12:12 PM [facility] ABSOLUTE MONOCYTES 0.65 0.20 - 1.00 10(3)/[facility] 10/29/2022 12:12 PM [facility] ABSOLUTE EOSINOPHIL 0.11 0.00 - 0.40 10(3)/[facility] 10/29/2022 12:12 PM [facility] ABSOLUTE BASOPHILS 0.07 0.00 - 0.10 10(3)/[facility] 10/29/2022 12:12 PM [facility] NRBC PER 100 WBC 0 10/29/19 23 12:12 PM [facility] RESULTS ARE CONSISTENT WITH PERIPHERAL SMEAR REVIEW Yes 10/29/2022 12:12 PM [facility] POIKILOCYTOSIS 1+ 10/29/2022 12:12 PM [facility] TARGET Present 10/29/2022 12:12 PM [facility] ELLIPTOCYTES Present 10/29/2022 12:12 PM [facility] Blood Venipuncture / Unknown 10/29/2022 11:10 AM VETERINARY RECEPTIONIST 10/29/2022 11:31 AM VETERINARY RECEPTIONIST Narrative [facility] - 10/29/2022 12:12 PM VETERINARY RECEPTIONIST Anisocytosis, microcytosis, hypochromia Virgen Lissette Page PAC HEMATOLOGY ORDERABLES Final Result [facility] [address] [place] [address] * (ABNORMAL) URINALYSIS REFLEX IF INDICATED BY ABNORMAL RESULTS (10/29/2022 11:10 AM VETERINARY RECEPTIONIST) SPECIFIC GRAVITY 1.025 1.003 - 1.030 10/29/2022 12:09 PM [facility] URINE PH 5.0 5.0 - 9.0 10/29/2022 12:09 PM [facility] WBC ESTERASE 25 /ul(A) Negative 10/29/2022 12:09 PM [facility] NITRITE Negative Negative 10/29/2022 12:09 PM [facility] PROTEIN, RANDOM URINE 500 mg/dL(A) Negative 10/29/2022 12:09 PM [facility] URINE GLUCOSE, QUAL Negative Negative 10/29/2022 12:09 PM [facility] URINE KETONES 5 mg/dL(A) Negative 10/29/2022 12:09 PM [facility] UROBILINOGEN Normal Normal mg/dL 10/29/2022 12:09 PM [facility] URINE BLOOD 250 /uL(A) Negative carter/ul 10/29/2022 12:09 PM [facility] URINALYSIS COLOR Red 10/29/19 12:09 PM [facility] URINALYSIS CLARITY Bloody 10/29/2022 12:09 PM [facility] WBC (Urine) 0-5 Negative, 0-5 /hpf 10/29/2022 12:09 PM [facility] URINE RBC'S Packed(A) Negative, 0-2 /hpf 10/29/2022 12:09 PM VETERINARY RECEPTIONIST [facility] EPITHELIAL CELLS Negative /lpf 10/29/19 12:09 PM VETERINARY RECEPTIONIST [facility] BACTERIA, URINE Few(A) Negative /hpf 10/29/2022 12:09 PM VETERINARY RECEPTIONIST [facility] Urine URINE SPECIMEN COLLECTION, CLEAN CATCH / Unknown Non-Phlebotomy Collection / Unknown 10/29/2022 11:10 AM VETERINARY RECEPTIONIST 10/29/2022 11:30 AM VETERINARY RECEPTIONIST Virgen Mclaughlin Page PAC URINE ORDERABLES Final Resul t Performing Organization Address City/[facility]/ZIP Co de Phone Number [facility] [address] [place] [address] * HCG Beta Subunit Serum Quant (10/29/2022 11:10 AM VETERINARY RECEPTIONIST) HCG BETA SUBUNIT, QUANT 4.57 <=5.00 mIU/mL 10/29/2022 11:52 AM VETERINARY RECEPTIONIST [facility] Blood Venipuncture / Unknown 10/29/2022 11:10 AM VETERINARY RECEPTIONIST 10/29/2022 11:31 AM VETERINARY RECEPTIONIST Narrative [facility] - 10/29/2022 11:52 AM VETERINARY RECEPTIONIST HCG Interpretive Reference Ranges Wks of : References Ranges 4 wks [id number] 5 wks [phone] 6 wks [phone] 7 wks [id number] 8 wks [id number] 9 wks [id number] 10 wks [id number] 14 wks [id number] 15 wks [id number] 16 wks [id number] 17 wks [id number] 18 wks [id number] 19 wks [phone] Non- Female: 0-4 us Virgen Mclaughlin Page PAC CHEMISTRY ORDERABLES Final R esult Performing Organization Address City/[facility]/ZIP Co de Phone Number [facility] [address] [place] [address] * TYPE & SCREEN (CROSSMATCH CONVERTIBLE) (10/29/2022 11:10 AM VETERINARY RECEPTIONIST) ABO TYPING A 10/29/2022 12:20 PM VETERINARY RECEPTIONIST [facility] BLOOD BANK RH Positive 10/29/2022 12:20 PM VETERINARY RECEPTIONIST [facility] BLOOD BANK ABSC Negative 10/29/2022 12:20 PM VETERINARY RECEPTIONIST [facility] BLOOD BANK Blood Venipuncture / Unknown 10/29/2022 11:10 AM VETERINARY RECEPTIONIST 10/29/2022 11:31 AM VETERINARY RECEPTIONIST us Virgen Mclaughlin Page PAC BLOOD BANK ORDERABLES Edited Result - Final [facility] BLOOD BANK [address] [place] [address] * (ABNORMAL) CMP (Comprehensive Metabolic Panel) (10/29/2022 11:10 AM VETERINARY RECEPTIONIST) Pathologist [facility] SODIUM 139 136 - 144 mmol/L 10/29/2022 12:04 PM VETERINARY RECEPTIONIST [facility] POTASSIUM 3.2(L) 3.5 - 5.1 mmol/L 10/29/2022 12:04 PM [facility] CHLORIDE 103 100 - 110 mmol/L 10/29/2022 12:04 PM [facility] CO2, VENOUS 24 22 - 32 mmol/L 10/29/2022 12:04 PM [facility] ANION GAP 15.2 8.0 - 20.0 mmol/L 10/29/2022 12:04 PM [facility] GLUCOSE 95 70 - 99 mg/dL 10/29/2022 12:04 PM [facility] BUN 7 6 - 20 mg/dL 10/29/2022 12:04 PM [facility] CREATININE, BLOOD 0.47 0.40 - 1.00 mg/dL 10/29/2022 12:04 PM [facility] BUN/CREATININE RATIO 15 12 - 20 ratio 10/29/2022 12:04 PM [facility] TOTAL PROTEIN 7.5 6.0 - 8.3 g/dL 10/29/2022 12:04 PM [facility] ALBUMIN 4.8 3.5 - 5.2 g/dL 10/29/2022 12:04 PM [facility] A/G RATIO 1.8 1.0 - 2.0 10/29/2022 12:04 PM [facility] CALCIUM 9.5 8.9 - 10.3 mg/dL 10/29/2022 12:04 PM [facility] T BILI <0.3 <=1.2 mg/dL 10/29/2022 12:04 PM [facility] SGOT (AST) 21 <=32 U/L 10/29/2022 12:04 PM [facility] SGPT (ALT) 20 <=41 U/L 10/29/2022 12:04 PM [facility] ALKALINE PHOSPHATASE 88(H) 45 - 87 U/L 10/29/2022 12:04 PM [facility] GFR, ESTIMATED >60 >=60 10/29/2022 12:04 PM [facility] Comment: Creatinine Clearance is the preferred criteria for selecting drug dose adjustments in renally impaired patients. ??The GFR is provided as additional pertinent clinical information. GFR is reported in mL/min/1.73 sq m. Calculation based on the Chronic Kidney Disease Epidemiology Collaboration (CKD- EPI) equation refit without adjustment for race. UNABLE TO CALCULATE GFR, EST. 023 12:04 PM [facility] GFR, EST. NONAFRICAN 10/29/2022 12:04 PM [facility] Blood Venipuncture / Unknown 10/29/2022 11:10 AM VETERINARY RECEPTIONIST 10/29/2022 11:31 AM VETERINARY RECEPTIONIST us Virgen Mclaughlin Page PAC CHEMISTRY ORDERABLES Final R esult [facility] [address] [facility] [place] [address] documented in this encounter Visit Diagnoses Diagnosis [...] Do not crush. Given 10/29/2022 12:24 PM VETERINARY RECEPTIONIST 20 mEq documented in this encounter Active and Recently Administered Medications Times are shown in VETERINARY RECEPTIONIST. Scheduled Medication Order 10/27/2022 10/28/2022 10/29/2022 potassium chloride SA (KLORCON M) tablet 20 mEq (COMPLETED) 20 mEq, Oral, ONCE, 1 dose, On 10/29/22 at 1230, Do not crush. 1224 (Given - Provid er: Osiris Rodriguez RN) documented in this encounter Additional Health Concerns Assessment Noted Time PHQ-9 Depression Total Score: 6 08/18/20 22 8:00 AM VETERINARY RECEPTIONIST documented as of this encounter Care Teams Windows Architect Relationship Specialty Start Date End Date Bianka Oneill PAC [address] [place] [address] PCP - General Physician Grades 1 Through 6 Teacher 08/18/22 documented as of this encounter
--- OUTSIDE RECORDS SUMMARY | 2024-09-22 21:30 | XMS_ITS | Encounter Summary ---
Author Organization [facility] Address [address] [place] [address] Phone Care Team Providers Care Community Health Counselor Name Role Phone Bianka Oneill Primary Care Provider + Reason for Visit * Reason Comments Follow-up 6 week follow up, warren berkowitz wants to talk to you about the Naproxen she doesn't feel it helps anymore. Encounter Details Date Type Department Care Team (Late st Contact Info) Description 09/30/2022 3:45 PM MEDICAL PATHOLOGY TEACHER Office Visit [facility] Medical Group - Family [facility] [address] [place] [address] Bianka Oneill, YARED [address] [place] [address] Anxiety and depression (Primary Dx); Left hip [...] Coronavirus/COVID-19? No / Unsure 09/30/2022 3:30 PM MEDICAL PATHOLOGY TEACHER documented as of this encounter Last Filed Vital Signs Vital Sign Reading Time Taken Comments Blood Pressure 124/76 09/30/2022 3:36 PM MEDICAL PATHOLOGY TEACHER Pulse 99 09/30/2022 3:36 PM MEDICAL PATHOLOGY TEACHER Temperature 35.9 ??C (96.7 ??F) 09/30/2022 3:36 PM CS T Respiratory Rate 14 09/30/2022 3:36 PM MEDICAL PATHOLOGY TEACHER Oxygen Saturation 99% 09/30/2022 3:36 PM MEDICAL PATHOLOGY TEACHER Inhaled Oxygen Concentration - - Weight 109 kg (240 lb 6.4 oz) 09/30/2022 3:36 PM MEDICAL PATHOLOGY TEACHER Height 160 cm (5' 3 ) 09/30/2022 3:36 PM MEDICAL PATHOLOGY TEACHER Body Mass Index 42.58 09/30/2022 3:36 PM MEDICAL PATHOLOGY TEACHER Body Mass Index Percentile 99.48% 09/30/2022 3:3 6 PM MEDICAL PATHOLOGY TEACHER Growth Chart: [facility] (Girls, 2- 20 Years) documented in this encounter Functional Status * Question Answer Date of Assessment Author Little interest or pleasure in doing things Not at all 09/30/2022 4:00 PM MEDICAL PATHOLOGY TEACHER Bianka Oneill Ma, PAC Feeling down, depressed, or hopeless Not at all 09/30/2022 4:00 PM MEDICAL PATHOLOGY TEACHER Bianka Oneill Ma, PAC * Over the past 2 weeks, how often have you been bothered by any of the following problems? Question Answer Date of Assessment Author Patient Health Questionnaire-2 Score 0 09/30/2022 4:00 PM MEDICAL PATHOLOGY TEACHER Bianka Oneill PAC documented as of this [...] Risk, Nutrition, Advanced Care Planning and HCC CAL PATHOLOGY TEACHER * Bianka Oneill PAC - 09/30/2022 3:45 [...] any problems with medication or worsening symptoms CAL PATHOLOGY TEACHER documented in this encounter Plan of Treatment Upcoming Encounters Date Type Department Care Team (Late st Contact Info) Description 10/07/2024 3:00 PM MEDICAL PATHOLOGY TEACHER Office Visit [facility] [address] [place] [address] Bianka Oneill PAC [address] [place] [address] documented as of this encounter Visit Diagnoses Diagnosis Anxiety and depression- Primary Dysthymic disorder Left hip pain Pain in joint, pelvic region and thigh Iron deficiency anemia, unspecified iron deficiency anemia type documented in this encounter Additional Health Concerns Assessment Noted Time PHQ-9 Depression Total Score: 6 08/18/20 22 8:00 AM MEDICAL PATHOLOGY TEACHER documented as of this encounter Care Teams Community Health Counselor Relationship Specialty Start Date End Date Bianka Oneill, YARED [address] [place] [address] PCP - General Physician Group Home Manager 08/18/22 documented as of this encounter
--- OUTSIDE RECORDS SUMMARY | 2024-09-22 21:30 | XMS_ITS | Encounter Summary ---
Author Organization [facility] Address [address] [place] [address] Phone Care Team Providers Care Medical Record Coder Name Role Phone Bianka Oneill Primary Care Provider + Reason for Visit * Reason Onset Date Comments Medication Refill 11/24/2022 Encounter Details Date Type Department Care Team (Late st Contact Info) Description 11/24/2022 MyChart RX Renewal [facility] [address] [place] [address] Bianka Oneill PAC [address] [place] [address] Medication Renewal Reviewed Social History Tobacco Use [...] Coronavirus/COVID-19? No / Unsure 10/29/2022 10:54 AM FREELANCE WEB DESIGNER documented as of this encounter Miscellaneous Notes [...] 09/30/22 Office Visit Bianka Oneill PAC [facility] 08/18/22 Office Visit Bianka Oneill PAC [facility] Showing recent visits within past 365 days [...] 10/29/2022 38.0 36.0 - 47.0 % Final LANCE WEB DESIGNER documented in this encounter Plan of Treatment Upcoming Encounters Date Type Department Care Team (Late st Contact Info) Description 10/07/2024 3:00 PM FREELANCE WEB DESIGNER Office Visit [facility] Medical Group - Family [facility] [address] [place] [address] Bianka Oneill PAC [address] [place] [address] documented as of this encounter Visit Diagnoses Not on filedocumented in this encounter Additional Health Concerns Assessment Noted Time PHQ-9 Depression Total Score: 6 08/18/20 8:00 AM FREELANCE WEB DESIGNER documented as of this encounter Care Teams Medical Record Coder Relationship Specialty Start Date End Date Bianka Oneill PAC [address] [place] [address] PCP - General Physician Sports Announcer 08/18/22 documented as of this encounter
--- OUTSIDE RECORDS SUMMARY | 2024-09-22 21:30 | XMS_ITS | Encounter Summary ---
Author Organization [facility] Address [address] [place] [address] Phone Care Team Providers Care Ammonia Worker Name Role Phone Bianka Oneill Primary Care Provider + Reason for Visit * Reason Onset Date Comments Appointment 12/19/2022 Encounter Details Date Type Department Care Team (Late st Contact Info) Description 12/19/2022 Telephone [facility] [address] [place] [address] Bianka Oneill, PAC [address] [place] [address] Appointment Social History Tobacco Use Types Packs/Day [...] Dept Phone 01/13/2023 1:45 PM Bianka Oneill [facility] [phone] 01/16/2023 8:30 AM Clinic, [facility] Nurse [facility] [phone] Assistive services verified * Telephone Encounter - Amy Reilly RN - 12/19/2022 11:26 AM CDT Patient calling to schedule a physical for school and a 2 step TB test. Appointment scheduled, see details below. All Patient Appointments Provider Department Dept Phone 01/03/2023 1:15 PM Bianka Oneill [facility] [phone] Please call to schedule TB resting once ordered. documented in this encounter Plan of Treatment Upcoming Encounters Date Type Department Care Team (Late st Contact Info) Description 10/07/2024 3:00 PM MECHANIC GENERAL OPERATIONAL TEST Office Visit [facility] [address] [place] [address] Bianka Oneill PAC [address] [place] [address] documented as of this encounter Visit Diagnoses Not on filedocumented in this encounter Additional Health Concerns Assessment Noted Time PHQ-9 Depression Total Score: 6 08/18/20 22 8:00 AM MECHANIC GENERAL OPERATIONAL TEST documented as of this encounter Care Teams Ammonia Worker Relationship Specialty Start Date End Date Bianka Oneill PAC [address] [place] [address] PCP - General Physician Speeder Hand 08/18/22 documented as of this encounter
--- OUTSIDE RECORDS SUMMARY | 2024-09-22 21:30 | XMS_ITS | Encounter Summary ---
Author Organization [facility] [employer] Care Team Providers Care Hospitalist Medical Director Name Role Phone Bianka Oneill Primary [...] st Contact Info) Description 10/07/2024 3:00 PM TESTER WASTE DISPOSAL LEAKAGE Office Visit [facility] Medical Group - Family Medicine [facility] [address] [place] [address] Bianka Oneill PAC [address] [place] [address] documented as of this encounter Visit Diagnoses Not on filedocumented in this encounter Additional Health Concerns Assessment Noted Time PHQ-9 Depression Total Score: 6 08/18/20 22 8:00 AM TESTER WASTE DISPOSAL LEAKAGE documented as of this encounter Care Teams Hospitalist Medical Director Relationship Specialty Start Date End Date Bianka Oneill PAC [address] [place] [address] PCP - General Physician Trans Router 08/18/22 documented as of this encounter
--- OUTSIDE RECORDS SUMMARY | 2024-09-22 21:30 | XMS_ITS | Encounter Summary ---
Author Organization [facility] Address [address] [place] [address] Phone Care Team Providers Care Cracking Machine Operator Name Role Phone Bianka Oneill Primary Care Provider + Reason for Visit * Reason Onset Date Comments Results 08/19/2022 Encounter Details Date Type Department Care Team (Late st Contact Info) Description 08/19/2022 Telephone [facility] [address] [place] [address] Bianka Oneill PAC [address] [place] [address] Results Social History Tobacco Use Types Packs/Day [...] Coronavirus/COVID-19? No / Unsure 08/18/2022 8:08 AM PUBLIC ADMINISTRATION TEACHER documented as of this encounter Miscellaneous Notes * Telephone Encounter - Mable Blair RN - 08/19/2022 6:32 PM PUBLIC ADMINISTRATION TEACHER Spoke to pt's mother, gave provider's message. Entered order. IC ADMINISTRATION TEACHER * Telephone Encounter - Mable Blair RN - 08/19/2022 6:27 PM PUBLIC ADMINISTRATION TEACHER ----- Message from YARED Sims sent at 08/19/2022 5:34 PM PUBLIC ADMINISTRATION TEACHER ----- Patient has iron deficiency anemia, start supplement ferrous sulfate 325 mg bid take with vitamin c Notify if causes upset stomach IC ADMINISTRATION TEACHER documented in this encounter Plan of Treatment Upcoming Encounters Date Type Department Care Team (Late st Contact Info) Description 10/07/2024 3:00 PM PUBLIC ADMINISTRATION TEACHER Office Visit [facility] [address] [place] [address] Bianka Oneill PAC [address] [place] [address] documented as of this encounter Visit Diagnoses Diagnosis Anemia, unspecified type- Primary documented in this encounter Additional Health Concerns Assessment Noted Time PHQ-9 Depression Total Score: 6 08/18/20 8:00 AM PUBLIC ADMINISTRATION TEACHER documented as of this encounter Care Teams Cracking Machine Operator Relationship Specialty Start Date End Date Bianka Oneill PAC [address] [place] [address] PCP - General Physician Nursing Consultant 08/18/22 documented as of this encounter
--- OUTSIDE RECORDS SUMMARY | 2024-09-22 21:30 | XMS_ITS | Encounter Summary ---
Author Organization [facility] Address [address] [place] [address] Phone Care Team Providers Care Senior Instructional Designer Name Role Phone Bianka Oneill Primary Care Provider + Reason for Visit * Reason Comments Ear Fullness She went to urgent c are on Monday and was diagnosed with double ear infection, she has been taking amoxicillin and doesn't feel it is getting better. Encounter Details Date Type Department Care Team (Late st Contact Info) Description 10/21/2022 10:45 AM NURSING SECRETARY Office Visit [facility] - Family [facility] [address] [place] [address] Bianka Oneill, PAC [address] [place] [address] Sinusitis, unspecified chronicity, unspecified location (Primary Dx); [...] Coronavirus/COVID-19? No / Unsure 10/29/2022 10:54 AM NURSING SECRETARY documented as of this encounter Last Filed Vital Signs Vital Sign Reading Time Taken Comments Blood Pressure 122/74 10/21/2022 10:39 AM NURSING SECRETARY Pulse 86 10/21/2022 10:39 AM NURSING SECRETARY Temperature 36.2 ??C (97.1 ??F) 10/21/2022 1 0:39 AM NURSING SECRETARY Respiratory Rate 14 10/21/2022 10:3 9 AM NURSING SECRETARY Oxygen Saturation 100% 10/21/2022 10: 39 AM NURSING SECRETARY Inhaled Oxygen Concentration - - Weight 107.5 kg (237 lb 1.6 oz) 023 10:39 AM NURSING SECRETARY Height 160 cm (5' 3 ) 10/21/2022 10:39 AM NURSING SECRETARY Body Mass Index 42 10/21/2022 10:39 AM NURSING SECRETARY Body Mass Index Percentile 99.38% 10/21 10:39 AM NURSING SECRETARY Growth Chart: [facility] (Girls, 2- 20 Years) documented in this [...] Risk, Nutrition, Advanced Care Planning and HCC ING SECRETARY * Bianka Oneill PAC - 10/21/2022 10:45 [...] prednisone to help with inflammation and sinuspressure ING SECRETARY documented in this encounter Plan of Treatment Upcoming Encounters Date Type Department Care Team (Late st Contact Info) Description 10/07/2024 3:00 PM NURSING SECRETARY Office Visit [facility] - Family [facility] [address] [place] [address] Binaka Oneill PAC [address] [place] [address] documented as of this encounter Visit Diagnoses Diagnosis Sinusitis, unspecified chronicity, unspecified location- Primary Frequent stools Diarrhea documented in this encounter Additional Health Concerns Assessment Noted Time PHQ-9 Depression Total Score: 6 08/18/20 22 8:00 AM NURSING SECRETARY documented as of this encounter Care Teams Senior Instructional Designer Relationship Specialty Start Date End Date Bianka Oneill PAC [address] [place] [address] PCP - General Physician Crown Ironer Operator 08/18/22 documented as of this encounter
--- OUTSIDE RECORDS SUMMARY | 2024-09-22 21:30 | XMS_ITS | Encounter Summary ---
Author Organization [facility] Address [address] [place] [address] Phone Care Team Providers Care Cattle Shipper Name Role Phone Bianka Oneill Primary Care Provider + Reason for Referral * Radiology Services (Routine) - Closed Specialty Diagnoses / Procedures Referred By Conttyson t Referred To Contact Radiology Diagnoses Left hip pain Procedures XR HIP 2-3 VIEWS W/PELVIS UNILATERAL LEFT Bianka Oneill PAC [address] [place] [address] Phone: tel: fax: Referral ID Status Reason Start Date Expiration Date Visits Re quested Visits Authorized [id number] Closed 08/18/2022 1 1 ULTING SOFTWARE ENGINEER Reason for Visit * Reason Comments New Patient Est Care Encounter Details Date Type Department Care Team (Late st Contact Info) Description 08/18/2022 8:15 AM CONSULTING SOFTWARE ENGINEER Office Visit [facility] - Family [facility] [address] [place] [address] Bianka Oneill PAC [address] [place] [address] Anxiety and depression (Primary Dx); History of [...] Coronavirus/COVID-19? No / Unsure 08/18/2022 8:08 AM CONSULTING SOFTWARE ENGINEER documented as of this encounter Last Filed Vital Signs Vital Sign Reading Time Taken Comments Blood Pressure 116/78 08/18/2022 8:15 AM CONSULTING SOFTWARE ENGINEER Pulse 88 08/18/2022 8:15 AM CONSULTING SOFTWARE ENGINEER Temperature 36.9 ??C (98.4 ??F) 08/18/2022 8:15 AM CS T Respiratory Rate 18 08/18/2022 8:15 AM CONSULTING SOFTWARE ENGINEER Oxygen Saturation 100% 08/18/2022 8:15 AM CONSULTING SOFTWARE ENGINEER Inhaled Oxygen Concentration - - Weight 108.9 kg (240 lb) 08/18/2022 8:15 AM CONSULTING SOFTWARE ENGINEER Height 154.9 cm (5' 1 ) 08/18/2022 8:15 AM CONSULTING SOFTWARE ENGINEER Body Mass Index 45.35 08/18/2022 8:15 AM CONSULTING SOFTWARE ENGINEER Body Mass Index Percentile 99.79% 08/18/2022 8:1 5 AM CONSULTING SOFTWARE ENGINEER Growth Chart: [facility] (Girls, 2- 20 Years) documented in this encounter Functional Status * Question Answer Date of Assessment Author Little interest or pleasure in doing things Several days 08/18/2022 8:00 AM CONSULTING SOFTWARE ENGINEER Juju Maurice Feeling down, depressed, or hopeless Several days 08/18/2022 8:00 AM CONSULTING SOFTWARE ENGINEER Toni Maurice * Over the past 2 weeks, how often have you been bothered by any of the following problems? Question Answer Date of Assessment Author Patient Health Questionnaire -2 Score 2 08/18/2022 8:00 AM CONSULTING SOFTWARE ENGINEER Toni Maurice documented as of this encounter Progress Notes * Karin Maurice - 08/18/2022 8:15 AM CST Annalise Vogt, 17 y.o., female is here for New Patient ([facility]) Medication Refills: Patient reports/denies need for [...] Fall Risk, Nutrition and Advanced Care Planning ULTING SOFTWARE ENGINEER * Bianka Oneill PAC - 08/18/2022 8:15 AM CST Subjective: New patient in the office today, discussed was on prozac 20 mg, felt no emotions was numb, has not been on medication for over 1 year 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, 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, 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 Fiance in marine boot [...] stop medication, if plan go to ER ULTING SOFTWARE ENGINEER documented in this encounter Plan of Treatment Upcoming Encounters Date Type Department Care Team (Late st Contact Info) Description 10/07/2024 3:00 PM CONSULTING SOFTWARE ENGINEER Office Visit [facility] - Family Medicine [facility] [address] [place] [address] Bianka Oneill PAC [address] [place] [address] documented as of this encounter Results * XR HIP 2-3 VIEWS W/PELVIS UNILATERAL LEFT (08/18/2022 10:25 AM CONSULTING SOFTWARE ENGINEER) Anatomical Region Laterality Modality LOWER EXTREMITY, hip, Pelvis Left Dig ital Radiography 08/19/2022 9:16 AM CONSULTING SOFTWARE ENGINEER Impressions 08/19/2022 9:19 AM CONSULTING SOFTWARE ENGINEER IMPRESSION: Deficient left femoral head neck junction offset which can be associated with femoroacetabular impingement. Narrative 08/19/2022 9:19 AM CONSULTING SOFTWARE ENGINEER EXAM DESCRIPTION: XR HIP 2-3 VIEWS W/PELVIS [...] AM T: ??08/19/2022 9:16 AM Report ID: [id number] Reading Location: ??[id number] Procedure Note Mikie Kaminski MD - 08/19/2022 [...] Mikie Kaminski M.D. MF: CULLEN Report ID: [id number] Reading Location: [id number] IMPRESSION: Deficient left femoral head neck junction offset which can be associated with femoroacetabular impingement. Bianka Oneill PAC IMG DIAGNOSTIC ORDERABLE S Final Result * (ABNORMAL) LIPID PANEL (08/18/2022 9:58 AM CONSULTING SOFTWARE ENGINEER) CHOLESTEROL 171 <=200 mg/dL 08/18/2022 11:52 AM CONSULTING SOFTWARE ENGINEER [facility] TRIGLYCERIDES 88 <150 mg/dL 08/18/2022 11:52 AM CONSULTING SOFTWARE ENGINEER [facility] HDL CHOLESTEROL 34.0(L) >40 mg/dL 11:52 AM CONSULTING SOFTWARE ENGINEER [facility] LDL 119 5 - 130 mg/dL 08/18/2022 11:52 AM CONSULTING SOFTWARE ENGINEER [facility] VLDL 18 5 - 55 mg/dL 08/18/2022 11:52 AM CONSULTING SOFTWARE ENGINEER [facility] CHOL/HDL RATIO 5.0(H) 0.0 - 4.4 08/18/2022 11:52 AM CONSULTING SOFTWARE ENGINEER [facility] NON-HDL CHOLESTEROL 137(H) <130 mg/dL 08/18/2022 11:52 AM [facility] IS THE PATIENT REQUIRED TO BE FASTING? Yes 08/18/2022 11:52 AM [facility] HAS THE PATIENT BEEN FASTING? Yes 08/18/2022 11:52 AM CONSULTING SOFTWARE ENGINEER [facility] Blood Venipuncture / Unknown 08/18/2022 9:58 AM CONSULTING SOFTWARE ENGINEER 08/18/2022 11:02 AM CONSULTING SOFTWARE ENGINEER Bianka Oneill PAC CHEMISTRY ORDERABLES Fin al Result [facility] [address] [place] [address] * THYROID STIMULATING HORMONE (TSH) (08/18/2022 9:58 AM CONSULTING SOFTWARE ENGINEER) TSH 2.990 0.270 - 4.200 mIU/L 08/18/2022 11:52 AM CONSULTING SOFTWARE ENGINEER [facility] Blood Venipuncture / Unknown 08/18/2022 9:58 AM CONSULTING SOFTWARE ENGINEER 08/18/2022 11:02 AM CONSULTING SOFTWARE ENGINEER us Bianka Oneill PAC CHEMISTRY ORDERABLES Fin al Result [facility] [address] [place] [address] * (ABNORMAL) CMP (COMPREHENSIVE METABOLIC PANEL) (08/18/2022 9:58 AM CONSULTING SOFTWARE ENGINEER) SODIUM 140 136 - 144 mmol/L 08/18/2022 11:52 AM [facility] POTASSIUM 4.2 3.5 - 5.1 mmol/L 08/18/2022 11:52 AM [facility] CHLORIDE 106 100 - 110 mmol/L 08/18/2022 11:52 AM [facility] CO2, VENOUS 24 22 - 32 mmol/L 08/18/2022 11:52 AM [facility] ANION GAP 14.2 8.0 - 20.0 mmol/L 08/18/2022 11:52 AM [facility] GLUCOSE 90 70 - 99 mg/dL 08/18/2022 11:52 AM [facility] BUN 7 6 - 20 mg/dL 08/18/2022 11:52 AM [facility] CREATININE, BLOOD 0.55 0.40 - 1.00 mg/dL 08/18/2022 11:52 AM [facility] BUN/CREATININE RATIO 13 12 - 20 ratio 08/18/2022 11:52 AM [facility] TOTAL PROTEIN 7.5 6.0 - 8.3 g/dL 08/18/2022 11:52 AM [facility] ALBUMIN 4.6 3.5 - 5.2 g/dL 08/18/2022 11:52 AM [facility] A/G RATIO 1.6 1.0 - 2.0 08/18/2022 11:52 AM [facility] CALCIUM 10.2 8.9 - 10.3 mg/dL 08/18/2022 11:52 AM [facility] T BILI <0.3 <=1.2 mg/dL 08/18/2022 11:52 AM [facility] SGOT (AST) 16 <=32 U/L 08/18/2022 11:52 AM CONSULTING SOFTWARE ENGINEER [facility] SGPT (ALT) 15 <=41 U/L 08/18/2022 11:52 AM CONSULTING SOFTWARE ENGINEER [facility] ALKALINE PHOSPHATASE 106(H) 45 - 87 U/L 08/18/2022 11:52 AM CONSULTING SOFTWARE ENGINEER [facility] IS THE PATIENT REQUIRED TO BE FASTING? No 08/18/2022 11:52 AM CONSULTING SOFTWARE ENGINEER [facility] GFR, ESTIMATED >60 >=60 08/18/2022 11:52 AM CONSULTING SOFTWARE ENGINEER [facility] Comment: Creatinine Clearance is the preferred criteria for selecting drug dose adjustments in renally impaired patients. ??The GFR is provided as additional pertinent clinical information. GFR is reported in mL/min/1.73 sq m. Calculation based on the Chronic Kidney Disease Epidemiology Collaboration (CKD- EPI) equation refit without adjustment for race. UNABLE TO CALCULATE GFR, EST. 022 11:52 AM CONSULTING SOFTWARE ENGINEER [facility] GFR, EST. NONAFRICAN 08/18/2022 11:52 AM CONSULTING SOFTWARE ENGINEER [facility] Blood Venipuncture / Unknown 08/18/2022 9:58 AM CONSULTING SOFTWARE ENGINEER 08/18/2022 11:02 AM CONSULTING SOFTWARE ENGINEER us Bianka Oneill PAC CHEMISTRY ORDERABLES Fin al Result [facility] [address] [place] [address] documented in this encounter Visit Diagnoses Diagnosis [...] Total Score: 6 08/18/20 22 8:00 AM CONSULTING SOFTWARE ENGINEER documented as of this encounter Care Teams Cattle Shipper Relationship Specialty Start Date End Date Bianka Oneill PAC [address] [place] [address] PCP - General Physician Steam Blocker 08/18/22 documented as of this encounter
--- OUTSIDE RECORDS SUMMARY | 2024-09-22 21:30 | XMS_ITS | Encounter Summary ---
Author Organization [employer] Care Team Providers Care Metal Window Screen Assembler Name Role Phone Bianka Oneill YARED Primary [...] Coronavirus/COVID-19? No / Unsure 08/18/2022 8:08 AM CHILD WATCH ATTENDANT documented as of this encounter Functional Status * Question Answer Date of Assessment Author Little interest or pleasure in doing things Several days 08/18/2022 8:00 AM Juju uA Feeling down, depressed, or hopeless Several days 08/18/2022 8:00 AM Toni Au * Over the past 2 weeks, how often have you been bothered by any of the following problems? Question Answer Date of Assessment Author Patient Health Questionnaire -2 Score 2 08/18/2022 8:00 AM CHILD WATCH ATTENDANT Toni Maurice documented as of this encounter Plan of Treatment Upcoming Encounters Date Type Department Care Team (Late st Contact Info) Description 10/07/2024 3:00 PM CHILD WATCH ATTENDANT Office Visit [facility] - Family Medicine [facility] [address] [place] [address] Bianka Oneill PAC [address] [place] [address] documented as of this encounter Visit Diagnoses Not on filedocumented in this encounter Additional Health Concerns Assessment Noted Time PHQ-9 Depression Total Score: 6 08/18/20 8:00 AM CHILD WATCH ATTENDANT documented as of this encounter Care Teams Metal Window Screen Assembler Relationship Specialty Start Date End Date Bianka Oneill PAC [address] [place] [address] PCP - General Physician Caregiver Assisted Living 08/18/22 documented as of this encounter
--- OUTSIDE RECORDS SUMMARY | 2024-09-22 21:30 | XMS_ITS | Encounter Summary ---
Author Organization [facility] Address [address] [place] [place] [address] Phone Care Team Providers Care Civil Preparedness Officer Name Role Phone Bianka Oneill Primary Care Provider + Reason for Visit * Reason Comments Medication Refill Encounter Details Date Type Department Care Team (Late st Contact Info) Description 09/12/2022 Refill [facility] [address] [place] [address] Bianka Oneill PAC [address] [place] [address] Medication Refill Social History Tobacco Use Types [...] Coronavirus/COVID-19? No / Unsure 08/18/2022 8:08 AM COATINGS INSPECTOR documented as of this encounter Miscellaneous Notes [...] order placed on 08/18/2022 9:06 AM Order [id number]: naproxen (NAPROSYN) 500 MG Tablet (For orders [...] 35.1 (L) 36.0 - 47.0 % Final INGS INSPECTOR documented in this encounter Plan of Treatment Upcoming Encounters Date Type Department Care Team (Late st Contact Info) Description 10/07/2024 3:00 PM COATINGS INSPECTOR Office Visit [facility] - Family [facility] [address] [place] [address] Bianka Oneill PAC [address] [place] [address] documented as of this encounter Visit Diagnoses Not on filedocumented in this encounter Additional Health Concerns Assessment Noted Time PHQ-9 Depression Total Score: 6 08/18/20 8:00 AM COATINGS INSPECTOR documented as of this encounter Care Teams Civil Preparedness Officer Relationship Specialty Start Date End Date Bianka Oneill PAC [address] [place] [address] PCP - General Physician Quarry Extraction Worker 08/18/22 documented as of this encounter
--- OUTSIDE RECORDS SUMMARY | 2024-09-22 21:30 | XMS_ITS | Encounter Summary ---
Author Organization [facility] Address [address] [place] [address] Phone Care Team Providers Care Bowl Attendant Name Role Phone Bianka Oneill PAC Primary Care Provider + Reason for Visit * Reason Comments New Patient * Consult, Test & Initiate Treatment (Routine) - Closed Specialty Diagnoses / Procedures Referred By Conttyson t Referred To Contact Oncology Diagnoses Iron deficiency anemia, unspecified iron deficiency anemia type Bianka Oneill PAC [address] [place] [address] Phone: tel: fax: [facility] [address] [place] [address] Phone: tel: fax: Referral ID Status Reason Start Date Expiration Date Visits Re quested Visits Authorized [id number] Closed 11/30/2022 1 1 Encounter Details Date Type Department Care Team (Late st Contact Info) Description 01/26/2023 9:15 AM CDT Office Visit [facility] Oncology Services [address] [place] [address] Bianka Oneill PAC [address] [place] [address] Pepper Reyes, PAC [address] [place] [address] Iron deficiency anemia, unspecified iron deficiency anemia [...] 01/26/2023 9:1 4 AM CDT Growth Chart: FORMERLY NAMED [facility] (Girls, 2- 20 Years) documented in [...] sent through Care Everywhere. * Iron-Rich Diet (Afghan) documented in this encounter Progress Notes * Pepper Reyes PAC - 01/26/2023 9:15 AM CDT Outpatient Hem/Onc Progress Note Annalise Vogt is a 17 y.o. female seen today for evaluation iron-deficiency anemia. Reports her mother has told her that she was anemic in child protective services specialist. States was diagnosed with anemia proximally 2 [...] Has not had further discussion with her jet handler since. Did recently have spontaneous 12/16/2022. / [...] st Contact Info) Description 10/07/2024 3:00 PM COMMUTATOR UNDERCUTTER Office Visit [facility] Medical [facility] [address] [place] [id number] Bianka Oneill, PAC [address] [place] [address] Scheduled Orders Name Type Priority Associated Diagnoses [...] 214 U/L 04/17/2023 1:19 PM CDT [facility] Blood Venipuncture / Unknown 04/17/2023 9:49 AM CDT 04/17/2023 9:49 AM CDT us Pepper Reyes PAC CHEMISTRY ORDERABLES Mayela l Result [facility] [address] [place] [address] * (ABNORMAL) CMP (COMPREHENSIVE METABOLIC PANEL) (04/17/2023 9:49 AM CDT) SODIUM 141 136 - 144 mmol/L 04/17/2023 1:19 PM CDT [facility] POTASSIUM 4.0 3.5 - 5.1 mmol/L 04/17/2023 1:19 PM CDT [facility] CHLORIDE 105 100 - 110 mmol/L 04/17/2023 1:19 PM CDT [facility] CO2, VENOUS 23 22 - 32 mmol/L 04/17/2023 1:19 PM CDT [facility] ANION GAP 17.0 8.0 - 20.0 mmol/L 04/17/2023 1:19 PM CDT [facility] GLUCOSE 87 70 - 99 mg/dL 04/17/2023 1:19 PM CDT [facility] BUN 9 6 - 20 mg/dL 04/17/2023 1:19 PM CDT [facility] CREATININE, BLOOD 0.53(L) 0.60 - 1.10 mg/dL 04/17/2023 1:19 PM CDT [facility] BUN/CREATININE RATIO 17 12 - 20 ratio 04/17/2023 1:19 PM CDT [facility] TOTAL PROTEIN 7.1 6.0 - 8.3 g/dL 04/17/2023 1:19 PM CDT [facility] ALBUMIN 4.4 3.5 - 5.2 g/dL 04/17/2023 1:19 PM CDT [facility] A/G RATIO 1.6 1.0 - 2.0 04/17/2023 1:19 PM CDT [facility] CALCIUM 9.8 8.7 - 10.5 mg/dL 04/17/2023 1:19 PM CDT [facility] T BILI 0.2 0.2 - 1.2 mg/dL 04/17/2023 1:19 PM CDT [facility] SGOT (AST) 15 <=32 U/L 04/17/2023 1:19 PM CDT [facility] SGPT (ALT) 16 <=41 U/L 04/17/2023 1:19 PM CDT [facility] ALKALINE PHOSPHATASE 83 35 - 105 U/L 04/17/2023 1:19 PM CDT [facility] IS THE PATIENT REQUIRED TO BE FASTING? No 04/17/2023 1:19 PM CDT [facility] GFR, ESTIMATED >60 >=60 04/17/2023 1:19 PM CDT [facility] [...] CALCULATE GFR, EST. 023 1:19 PM CDT [facility] GFR, EST. NONAFRICAN 04/17/2023 1:19 PM CDT [facility] Blood Venipuncture / Unknown 04/17/2023 9:49 AM CDT 04/17/2023 9:49 AM CDT Pepper Reyes PAC CHEMISTRY ORDERABLES Mayela l Result [facility] [address] [place] [address] * (ABNORMAL) IRON W/IRON BINDING CAPACITY (04/17/2023 9:49 AM CDT) IRON 39.57 37 - 145 mcg/dL 04/17/2023 1:19 PM CDT [facility] % SATURATION * 13(L) 20 - 55 % 04/17/2023 1:19 PM CDT [facility] UIBC 268 112 - 346 mcg/dL 04/17/2023 1:19 PM CDT [facility] TIBC CALC 308 149 - 491 mcg/dL 04/17/2023 1:19 PM CDT [facility] Blood Venipuncture / Unknown 04/17/2023 9:49 AM CDT 04/17/2023 9:49 AM CDT [facility] PAC CHEMISTRY ORDERABLES Mayela l Result Performing Organization Address City/[facility]/ZIP Co de Phone Number [facility] [address] [place] [address] * FERRITIN (04/17/2023 9:49 AM CDT) FERRITIN 38 13 - 150 ng/mL 04/17/2023 1:19 PM CDT [facility] Blood Venipuncture / Unknown 04/17/2023 9:49 AM CDT 04/17/2023 9:49 AM CDT [facility] PAC CHEMISTRY ORDERABLES Mayela l Result Performing Organization Address [facility] Co de Phone Number [facility] [address] [place] [address] documented in this encounter Visit Diagnoses Diagnosis Iron deficiency anemia, unspecified iron deficiency anemia type- Primary Menorrhagia with regular cycle Excessive or frequent menstruation documented in this encounter Additional Health Concerns Assessment Noted Time PHQ-9 Depression Total Score: 6 08/18/20 22 8:00 AM COMMUTATOR UNDERCUTTER documented as of this encounter Care Teams Bowl Attendant Relationship Specialty Start Date End Date Bianka Oneill PAC [address] [place] [address] PCP - General Physician Emr Analyst 08/18/22 documented as of this encounter
--- OUTSIDE RECORDS SUMMARY | 2024-09-22 21:30 | XMS_ITS | Encounter Summary ---
Author Organization [facility] Address [address] [place] [address] Phone Care Team Providers Care Stand In Name Role Phone Bianka Oneill Primary Care Provider + Reason for Referral * Consult, Test & Initiate Treatment (Routine) - Closed Specialty Diagnoses / Procedures Referred By Suzy giraldo Referred To Contact Oncology Diagnoses Iron deficiency anemia, unspecified iron deficiency anemia type iBanka Oneill PAC [address] [place] [address] Phone: tel: fax: [facility] [address] [place] [address] Phone: tel: fax: Referral ID Status Reason Start Date Expiration Date Visits Re quested Visits Authorized [id number] Closed 11/30/2022 1 1 Scheduling Instructions Annalise is being referred for iron deficiency anemia. Please contact patient for scheduling questions or concerns. Reason for Visit * Reason Onset Date Comments Results 11/29/2022 Encounter Details Date Type Department Care Team ([facility] Contact Info) Description 11/29/2022 Telephone [facility] Medical [facility] [place] [address] [place] [address] Bianka Oneill PAC [address] [place] [address] Results Social History Tobacco Use Types Packs/Day [...] even with taking supplement, suggest consult with inventory control coordinator, if agreeable can place order for iron deficiency anemia documented in this encounter Plan of Treatment Upcoming Encounters Date Type Department Care Team (Late st Contact Info) Description 10/07/2024 3:00 PM RELEASE COORDINATOR Office Visit [facility] Group - [facility] [address] [place] [address] Bianka Oneill PAC [address] [place] [address] Scheduled Referrals Name Type Priority Associated Diagnoses Orde r Schedule HEMATOLOGY ONCOLOGY REFERRAL Outpatient Referral Routine Iron deficiency anemia, unspecified iron deficiency anemia type Expected: 11/30/2022, Expires: 12/01/2023 documented as of this encounter Visit Diagnoses Diagnosis Iron deficiency anemia, unspecified iron deficiency anemia type- Primary documented in this encounter Additional Health Concerns Assessment Noted Time PHQ-9 Depression Total Score: 6 08/18/20 8:00 AM RELEASE COORDINATOR documented as of this encounter Care Teams Stand In Relationship Specialty Start Date End Date Bianka Oneill PAC [address] [place] [address] PCP - General Physician Hrbp 08/18/22 documented as of this encounter
--- OUTSIDE RECORDS SUMMARY | 2024-09-22 21:30 | XMS_ITS | Encounter Summary ---
Author Organization [employer] Care Team Providers Care Noc Technician Name Role Phone Bianka Oneill Primary Care [...] Coronavirus/COVID-19? No / Unsure 09/30/2022 3:30 PM FORKLIFT MATERIAL HANDLER documented as of this encounter Functional Status [...] Health Questionnaire-2 Score 0 09/30/2022 4:00 PM FORKLIFT MATERIAL HANDLER Bianka Oneill PAC documented as of this encounter Plan of Treatment Upcoming Encounters Date Type Department Care Team (Late st Contact Info) Description 10/07/2024 3:00 PM FORKLIFT MATERIAL HANDLER Office Visit [facility] Medical Group - [facility] [place] [address] [place] [address] Bianka Oneill PAC [address] [place] [address] documented as of this encounter Visit Diagnoses Not on filedocumented in this encounter Additional Health Concerns Assessment Noted Time PHQ-9 Depression Total Score: 6 08/18/20 8:00 AM FORKLIFT MATERIAL HANDLER documented as of this encounter Care Teams Noc Technician Relationship Specialty Start Date End Date Bianka Oneill PAC [address] [place] [address] PCP - General Physician Pack Mule Worker 08/18/22 documented as of this encounter
--- OUTSIDE RECORDS SUMMARY | 2024-09-22 21:30 | XMS_ITS | Encounter Summary ---
Author Organization [facility] Address [address] [place] [address] Phone Care Team Providers Care Film Developer Name Role Phone Bianka Oneill Primary Care Provider + Reason for Referral * Radiology Services (Routine) - Closed Specialty Diagnoses / Procedures Referred By Contac t Referred To Contact Radiology Diagnoses Left hip pain Procedures XR HIP 2-3 VIEWS W/PELVIS UNILATERAL LEFT Bianka Oneill PAC [address] [place] [address] Phone: tel: fax: Referral ID Status Reason Start Date Expiration Date Visits Re quested Visits Authorized Closed 08/18/2022 1 1 AGE CAR DRIVER Reason for Visit * Radiology Services (Routine) - Closed Specialty Diagnoses / Procedures Referred By Contac t Referred To Contact Radiology Diagnoses Left hip pain Procedures XR HIP 2-3 VIEWS W/PELVIS UNILATERAL LEFT Bianka Oneill PAC [address] [place] [address] Phone: tel: fax: Referral ID Status Reason Start Date Expiration Date Visits Re quested Visits Authorized Closed 08/18/2022 1 1 Encounter Details Date Type Department Care Team (Latest Contact Info) Description 08/18/2022 9:45 AM PACKAGE CAR DRIVER - 08/18/2022 11:59 PM PACKAGE CAR DRIVER Hospital Encounter [facility] [address] [place] [phone] Bianka Oneill, PAC [address] [place] [address] Discharge Disposition: Discharged to home or Selfcare [...] Coronavirus/COVID-19? No / Unsure 08/18/2022 8:08 AM PACKAGE CAR DRIVER documented as of this encounter Functional Status [...] st Contact Info) Description 10/07/2024 3:00 PM PACKAGE CAR DRIVER Office Visit [facility] [address] [place] [address] Bianka Oneill, PAC [address] [place] [address] documented as of this encounter Procedures Procedure Name Priority Date/Time Associated Diagnosis Comments XR HIP 2-3 VIEWS W/PELVIS UNILATERAL LEFT Routine 08/18/2022 10:25 AM PACKAGE CAR DRIVER Left hip pain documented in this encounter Results * XR HIP 2-3 VIEWS W/PELVIS UNILATERAL LEFT (08/18/2022 10:25 AM PACKAGE CAR DRIVER) Anatomical Region Laterality Modality LOWER EXTREMITY, hip, Pelvis Left Dig ital Radiography 08/19/2022 9:16 AM PACKAGE CAR DRIVER Impressions 08/19/2022 9:19 AM PACKAGE CAR DRIVER IMPRESSION: Deficient left femoral head neck junction offset which can be associated with femoroacetabular impingement. Narrative 08/19/2022 9:19 AM PACKAGE CAR DRIVER EXAM DESCRIPTION: XR HIP 2-3 VIEWS W/PELVIS [...] AM T: ??08/19/2022 9:16 AM Report ID: [id number] Reading Location: [id number] Procedure Note Mikie Kaminski MD - 08/19/2022 [...] Mikie Kaminski M.D. MF: CULLEN Report ID: [id number] Reading Location: [id number] IMPRESSION: Deficient left femoral head neck junction offset which can be associated with femoroacetabular impingement. Bianka Oneill PAC IMG DIAGNOSTIC ORDERABLE S Final Result documented in this encounter Visit Diagnoses Diagnosis Left hip pain Pain in joint, pelvic region and thigh documented in this encounter Additional Health Concerns Assessment Noted Time PHQ-9 Depression Total Score: 6 08/18/20 22 8:00 AM PACKAGE CAR DRIVER documented as of this encounter Care Teams Film Developer Relationship Specialty Start Date End Date Bianka Oneill, PAC [address] [place] [address] PCP - General Physician Realtime Reporter 08/18/22 documented as of this encounter
--- OUTSIDE RECORDS SUMMARY | 2024-09-22 21:30 | XMS_ITS | Encounter Summary ---
Author Organization [facility] Address [address] [place] [address] Phone Care Team Providers Care Night Worker Name Role Phone Bianka Oneill Primary Care Provider + Encounter Details Date Type Department Care Team (Latest Contact Info) Description 01/16/2023 8:30 AM CDT Clinical Support [facility] Medical Group - Family Medicine - [place] [address] [place] [address] Clinic, Manny Nurse [place] Encounter for immunization (Primary Dx) Discharge Disposition: [...] Note PPD read and results entered in Switchcam. Result: 0 mm induration. Interpretation: negative If test not read within 48-72 hours of initial placement, patient advised to schedule another appointment to repeat the TB skin test injection. Allergic reaction: no documented in this encounter Plan of Treatment Upcoming Encounters Date Type Department Care Team (Late st Contact Info) Description 10/07/2024 3:00 PM CLAIMS COUNSEL Office Visit [facility] Medical Group - Family [facility] [address] [place] [address] Bianka Oneill PAC [address] [place] [address] documented as of this encounter Visit Diagnoses Diagnosis Encounter for immunization- Primary Need for other specified prophylactic vaccination against single bacterial disease documented in this encounter Additional Health Concerns Assessment Noted Time PHQ-9 Depression Total Score: 6 08/18/20 8:00 AM CLAIMS COUNSEL documented as of this encounter Care Teams Night Worker Relationship Specialty Start Date End Date Bianka Oneill PAC [address] [place] [address] PCP - General Physician Sports Broadcaster 08/18/22 documented as of this encounter
--- OUTSIDE RECORDS SUMMARY | 2024-09-22 21:30 | XMS_ITS | Encounter Summary ---
Author Organization [facility] Address [address] [place] [address] Phone Care Team Providers Care Linter Tender Name Role Phone Bianka Oneill Primary Care Provider + Reason for Visit * Reason Onset Date Comments Results 08/19/2022 Encounter Details Date Type Department Care Team (Late st Contact Info) Description 08/19/2022 Telephone [facility] [address] [place] [address] Bianka Oneill PAC [address] [place] [address] Results Social History Tobacco Use Types Packs/Day [...] Coronavirus/COVID-19? No / Unsure 08/18/2022 8:08 AM HOSTING ENGINEER documented as of this encounter Miscellaneous Notes * Telephone Encounter - Mable Blair RN - 08/19/2022 4:50 PM HOSTING ENGINEER Spoke to lab, they will add test. Orders entered ING ENGINEER * Telephone Encounter - Mable Blair RN - 08/19/2022 4:39 PM HOSTING ENGINEER ----- Message from Bianka Oneill, YARED sent at 08/19/2022 3:51 PM HOSTING ENGINEER ----- Anemia, see if lab can add iron studies, ferritin, tibc ING ENGINEER documented in this encounter Plan of Treatment Upcoming Encounters Date Type Department Care Team (Late st Contact Info) Description 10/07/2024 3:00 PM HOSTING ENGINEER Office Visit [facility] Medical Group - Family Medicine [facility] [address] [place] [address] Bianka Oneill, YARED [address] [place] [address] documented as of this encounter Results * (ABNORMAL) IRON W/IRON BINDING CAPACITY (01/13/2023 2:59 PM CDT) IRON 36.21(L) 37 - 145 mcg/dL 01/13/2023 3:48 PM CDT [facility] % SATURATION * 9(L) 20 - 55 % 01/13/2023 3:48 PM CDT [facility] UIBC 354(H) 112 - 346 mcg/dL 01/13/2023 3:48 PM CDT [facility] TIBC CALC 390 149 - 491 mcg/dL 01/13/2023 3:48 PM CDT [facility] Blood Venipuncture / Unknown 01/13/2023 2:59 PM CDT 01/13/2023 3:10 PM CDT us iBanka Oneill PAC CHEMISTRY ORDERABLES Fin al Result Performing Organization Address City/[facility] Co de Phone Number [facility] [address] [place] [address] * (ABNORMAL) FERRITIN (08/18/2022 9:58 AM HOSTING ENGINEER) FERRITIN 5(L) 13 - 150 ng/mL 08/19/2022 5:18 PM HOSTING ENGINEER [facility] Blood Venipuncture / Unknown 08/18/2022 9:58 AM HOSTING ENGINEER 08/19/2022 4:52 PM HOSTING ENGINEER us Bianka Oneill PAC CHEMISTRY ORDERABLES Fin al Result Performing Organization Address [facility] de Phone Number [facility] [address] [place] [address] documented in this encounter Visit Diagnoses Diagnosis Anemia, unspecified type- Primary documented in this encounter Additional Health Concerns Assessment Noted Time PHQ-9 Depression Total Score: 6 08/18/20 22 8:00 AM HOSTING ENGINEER documented as of this encounter Care Teams Linter Tender Relationship Specialty Start Date End Date Bianka Oneill PAC [address] [place] [address] PCP - General Physician Maritime Guard 08/18/22 documented as of this encounter
--- OUTSIDE RECORDS SUMMARY | 2024-09-22 21:30 | XMS_ITS | Encounter Summary ---
Author Organization [facility] [employer] Care Team Providers Care Irrigator Valve Pipe Name Role Phone Bianka Oneill Primary Care [...] Coronavirus/COVID-19? No / Unsure 10/29/2022 10:54 AM WIPING CLOTH CUTTER documented as of this encounter Plan of Treatment Upcoming Encounters Date Type Department Care Team (Late st Contact Info) Description 10/07/2024 3:00 PM WIPING CLOTH CUTTER Office Visit [facility] Medical Group - Family Medicine [facility] [address] [place] [address] Bianka Oneill PAC [address] [place] [address] documented as of this encounter Visit Diagnoses Not on filedocumented in this encounter Additional Health Concerns Assessment Noted Time PHQ-9 Depression Total Score: 6 08/18/20 22 8:00 AM WIPING CLOTH CUTTER documented as of this encounter Care Teams Irrigator Valve Pipe Relationship Specialty Start Date End Date Bianka Oneill PAC [address] [place] [address] PCP - General Physician Wood Lathe Operator 08/18/22 documented as of this encounter
--- OUTSIDE RECORDS SUMMARY | 2024-09-22 21:30 | XMS_ITS | Encounter Summary ---
Author Organization [facility] Address [address] [place] [address] Phone Care Team Providers Care Carbide Powder Processor Name Role Phone Bianka Oneill Primary Care Provider + Reason for Referral * Consult, Test & Initiate Treatment (Less Than 4 Weeks) - Closed Specialty Diagnoses / Procedures Referred By Suzy giraldo Referred To Contact Diagnoses Left hip pain Bianka Oneill, YARED [address] [place] [address] Phone: tel: fax: [facility] [address] [place] [address] [id number] [place] [address] Phone: tel: fax: Referral ID Status Reason Start Date Expiration Date Visits Re quested Visits Authorized [id number] Closed 09/21/2022 1 1 Scheduling Instructions Annalise is being referred to Dalia Rodriguez at [facility] phone [phone] and fax [phone] and [phone] [facility] [address] or other specialist in patient's insurance network [...] problem list on file for this patient. ORATIVE COORDINATOR Reason for Visit * Reason Onset Date Comments Referral 09/21/2022 Encounter Details Date Type Department Care Team (Late st Contact Info) Description 09/21/2022 Telephone [facility] [address] [place] [address] Bianka Oneill PAC [address] [place] [address] Referral Social History Tobacco Use Types Packs/Day [...] have referral placed to Dalia Rodriguez at [facility] [phone] [phone] and [phone] [facility] [address]. States she would like to see the same provider her mother is seeing for the same thing-Left hip pain. RECOMMENDATION: Referral pended for provider to review. Please advise. ORATIVE COORDINATOR documented in this encounter Plan of Treatment Upcoming Encounters Date Type Department Care Team (Late st Contact Info) Description 10/07/2024 3:00 PM RESTORATIVE COORDINATOR Office Visit [facility] Medicine [facility] [address] [place] [address] Bianka Oneill PAC [address] [place] [address] documented as of this encounter Procedures Procedure [...] Depression Total Score: 6 08/18/20 8:00 AM RESTORATIVE COORDINATOR documented as of this encounter Care Teams Carbide Powder Processor Relationship Specialty Start Date End Date Bianka Oneill PAC [address] [place] [address] PCP - General Physician Sterile Supply Technician 08/18/22 documented as of this encounter
--- OUTSIDE RECORDS SUMMARY | 2024-09-22 21:30 | XMS_ITS | Encounter Summary ---
Author Organization [facility] Address [address] [place] [address] Phone Care Team Providers Care Social Science Teacher Name Role Phone Bianka Oneill Primary Care Provider + Reason for Referral * Consult, Test & Initiate Treatment (Routine) - Closed Specialty Diagnoses / Procedures Referred By Conttyson t Referred To Contact Diagnoses Left hip pain Bianka Oneill, YARED [address] [place] [address] Phone: tel: fax: [facility] [address] [place] [address] [address] [place] [address] Phone: tel: fax: Referral ID Status Reason Start Date Expiration Date Visits Re quested Visits Authorized [id number] Closed 08/19/2022 1 1 Scheduling Instructions Annalise [...] problem list on file for this patient. AL KEEPER Reason for Visit * Reason Onset Date Comments Results 08/19/2022 Encounter Details Date Type Department Care Team (Late st Contact Info) Description 08/19/2022 Telephone [facility] [address] [place] [address] Bianka Oneill PAC [address] [place] [address] Results Social History Tobacco Use [...] Coronavirus/COVID-19? No / Unsure 08/18/2022 8:08 AM MAMMAL KEEPER documented as of this encounter Miscellaneous Notes * Telephone Encounter - Mable Blair RN - 08/19/2022 6:20 PM MAMMAL KEEPER Spoke to pt's mother, on PRD. She states they are agreeable to referral and prefer to go to [facility] because she is also a patient there. Referral entered per order of Bianka Oneill. AL KEEPER * Telephone Encounter - Mable Blair RN - 08/19/2022 6:12 PM MAMMAL KEEPER ----- Message from YARED Sims sent at 08/19/2022 10:32 AM MAMMAL KEEPER ----- Might have some impingement in hip joint, suggest see orthopedic, can place referral if agreeable AL KEEPER documented in this encounter Plan of Treatment Upcoming Encounters Date Type Department Care Team (Late st Contact Info) Description 10/07/2024 3:00 PM MAMMAL KEEPER Office Visit [facility] - Family Medicine [facility] [address] [place] [address] Bianak Oneill PAC [address] [place] [address] documented as of this encounter Procedures Procedure [...] Total Score: 6 08/18/20 22 8:00 AM MAMMAL KEEPER documented as of this encounter Care Teams Social Science Teacher Relationship Specialty Start Date End Date Bianka Oneill PAC [address] [place] [address] PCP - General Physician Psych Tech 08/18/22 documented as of this encounter
--- OUTSIDE RECORDS SUMMARY | 2024-09-22 21:30 | XMS_ITS | Encounter Summary ---
Author Organization [facility] [employer] Care Team Providers Care Administrative Personal Assistant Name Role Phone Bianka Oneill Primary [...] Coronavirus/COVID-19? No / Unsure 10/21/2022 10:36 AM HEARING AID REPAIRER documented as of this encounter Plan of Treatment Upcoming Encounters Date Type Department Care Team (Late st Contact Info) Description 10/07/2024 3:00 PM HEARING AID REPAIRER Office Visit [facility] Medical Group - Family Medicine [facility] [address] [place] [address] Bianka Oneill PAC [address] [place] [address] documented as of this encounter Visit Diagnoses Not on filedocumented in this encounter Additional Health Concerns Assessment Noted Time PHQ-9 Depression Total Score: 6 08/18/20 22 8:00 AM HEARING AID REPAIRER documented as of this encounter Care Teams Administrative Personal Assistant Relationship Specialty Start Date End Date Bianka Oneill PAC [address] [place] [address] PCP - General Physician Winding Rack Operator 08/18/22 documented as of this encounter
== END 2024-09-15 18:12 | disposition home or self-care (01) ==
PROVIDERS: Emergency Provider Emergency Medicine; PCP Physician Assistant
DX: N92.1 Excessive and frequent menstruation with irregular cycle (principal)
CPT/HCPCS: 36415; 80053; 84703; 85027; 99284

== ENCOUNTER 2025-09-04 17:33 | Emergency (ER) | payer OTHER, SELFPAY ==
[2025-09-04 17:33] VITALS: BP 103/55; PULSE 102; RESP 16; O2SAT 98
--- OUTSIDE RECORDS SUMMARY | 2025-09-04 17:34 | XMS_ITS | Encounter Summary ---
Author Organization [facility] Address [address] [place] [address] Phone Care Team Providers Care Motor Racer Name Role Phone Bianka Oneill Primary Care Provider + Suresh Gleason MD Unavailable [phone] Margaux Allison APRN, PASTE PLANT SUPERVISOR Unavailable Encounter Details Date Type Department Care Team (Late st Contact Info) Description 09/04/2023 Telephone [facility] Oncology Services [address] [place] [phone] Pepper Reyes, PAC [address] [place], [place] [phone] Social History Tobacco Use Types Packs/Day Years [...] encounter Miscellaneous Notes * Telephone Encounter - Julia Pelaez - 09/04/2023 2:20 PM CST Today's visit was cancelled as she is currently 19 weeks and will be followed by her primary care physician. She will follow up with our office on an as needed basis. ER MECHANIC APPRENTICE documented in this encounter Plan of Treatment Upcoming Encounters Date Type Department Care Team (Late st Contact Info) Description 12/09/2025 2:40 PM CDT Office Visit [facility] Medical [facility] - Family Medicine [facility] [address] [place] [address] Bianka Oneill [facility] [address] [place] [address] 01/26/2026 2:40 PM CDT Office Visit [facility] Center Oncology Services [address] [place] [address] Pepper Reyes, PAC [address] [place] [address] Discharge Disposition: Discharged to home or Selfcare documented as of this encounter Goals Goal Patient Goal Type Associated Problems Recent Progress Patient-Stated? Author just want to feel normal Behavioral Health On track(2023 4:08 PM FENDER MECHANIC APPRENTICE) Yes Che Dickerson, COP WINDER Note: Goal/Objective: Decrease anxious and depressive symptoms. 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 difficile Rule-Out 11/07/2024 12/09/20242024 12:16 AM FENDER MECHANIC APPRENTICE C. difficile Rule-Out 12/09/2024 12/09/20242024 4:53 PM CDT Assessment Noted Time PHQ-9 Depression Total Score: 0 05/29/20 10:33 AM CDT documented as of this encounter Care Teams Motor Racer Relationship Specialty Start Date End Date Bianka Oneill PAC [address] [place] [address] PCP - General Physician Seam Finisher 08/18/22 Suresh Gleason MD [address] [phone] Consulting Physician General Surgery 03/11/24 Margaux Allison APRN, PASTE PLANT SUPERVISOR [address] [place] [address] Nurse Practitioner Advanced Practice Nurse 11/07/24 documented as of this encounter
--- OUTSIDE RECORDS SUMMARY | 2025-09-04 17:34 | XMS_ITS | Encounter Summary ---
Author Organization [facility] Address [address] [place] [address] Phone Care Team Providers Care Parking Lot Supervisor Name Role Phone Bianka Oneill Primary Care Provider + Suresh Gleason MD Unavailable Margaux Allison APRN, INTERPRETER AND TRANSLATOR Unavailable Encounter Details Date Type Department Care Team (Late st Contact Info) Description 10/05/2023 Behavioral Health [facility] [address] [place] [phone] Che Dickerson, ATTENDING ANESTHESIOLOGIST [address] [place], [place] [phone] Social History Tobacco Use Types Packs/Day Years [...] Description 12/09/2025 2:40 PM CDT Office Visit [facility] - Family Medicine [facility] [address] [place] [address] Bianka Oneill, PAC [address] [place] [address] 01/26/2026 2:40 PM CDT Office Visit [facility] - Cancer Center Oncology Services [address] [place] [address] Pepper Reyes, PAC [address] [place] [address] Discharge Disposition: Discharged to home or Selfcare documented as of this encounter Goals Goal Patient Goal Type Associated Problems Recent Progress Patient-Stated? Author just want to feel normal Behavioral Health On track(2023 4:08 PM WIND FARM OPERATIONS MANAGER) Yes Che Dickerson, ATTENDING ANESTHESIOLOGIST Note: Goal/Objective: Decrease anxious and depressive symptoms. Anticipated Time Frame for Goal Completion: 6 months Goal Reviewed with: patient Readiness to change: Ready to change Department associated with goal: [facility] BEHAVIORAL HE[facility] SERVICES Steps to [...] C. difficile Rule-Out 11/07/2024 12/09/20242024 12:16 AM WIND FARM OPERATIONS MANAGER C. difficile Rule-Out 12/09/2024 12/09/20242024 4:53 PM CDT Assessment Noted Time PHQ-9 Depression Total Score: 0 05/29/20 10:33 AM CDT documented as of this encounter Care Teams Parking Lot Supervisor Relationship Specialty Start Date End Date Bianka Oneill PAC [address] [place] [address] PCP - General Physician Director Of Direct Marketing 08/18/22 Suresh Gleason MD [address] [phone] Consulting Physician General Surgery 03/11/24 Margaux Allison APRN, INTERPRETER AND TRANSLATOR [address] [place] [address] Nurse Practitioner Advanced Practice Nurse 11/07/24 documented as of this encounter
--- OUTSIDE RECORDS SUMMARY | 2025-09-04 17:35 | XMS_ITS | Encounter Summary ---
Author Organization [facility] Address [address] [place] [address] Phone Care Team Providers Care Supervisor Winter Name Role Phone Bianka Oneill Primary Care Provider + Suresh Gleason MD Unavailable Margaux Allison APRN, RAIL SPLITTER Unavailable Encounter Details Date Type Department Care Team (Latest Contact Info) Description 07/24/2025 Results Follow-Up [facility] - Cancer Center Oncology Services [address] [place] [address] Pepper Reyes, PAC [address] [place], [place] [phone] FERRITIN, IRON,TRANSFERN,CALC.T IBC,%SAT, VITAMIN B12, CBC WITH AUTO DIFFERENTIAL Social History Tobacco Use Types Packs/Day Years Used Date Smoking Tobacco: Never Smokeless Tobacco: Never Alcohol Use Standard Drinks/Week Comments Never 0 (1 standard drink = 0.6 oz pur e alcohol) PHQ-2 Answer Date Recorded Total Score - Questions 1-9 0 04/18 Education Answer Date Recorded What is the [...] Description 12/09/2025 2:40 PM CDT Office Visit [facility] - Family [facility] [address] [place] [address] Bianka Oneill, PAC [address] [place] [address] 01/26/2026 2:40 PM CDT Office Visit [facility] - [facility] Center Oncology Services [address] [place] [address] Pepper Reyes, PAC [address] [place] [address] Discharge Disposition: Discharged to home or Selfcare documented as of this encounter Goals Goal Patient Goal Type Associated Problems Recent Progress Patient-Stated? Author just want to feel normal Behavioral Health On track(2023 4:08 PM FIELD ENUMERATOR) Yes Che Dickerson, ORACLE MANAGER Note: Goal/Objective: Decrease anxious and depressive symptoms. Anticipated Time Frame for Goal Completion: 6 months Goal Reviewed with: patient Readiness to change: Ready to change Department associated with goal: [facility] BEHAVIORAL HEALTH SERVICES Steps to [...] Noted Time PHQ-9 Depression Total Score: 0 05/06/20 4:23 PM CDT documented as of this encounter Care Teams Supervisor Winter Relationship Specialty Start Date End Date Bianka Oneill PAC [address] [place] [address] PCP - General Physician Pharmacometrician 08/18/22 Suresh Gleason MD [address] [phone] Consulting Physician General Surgery 03/11/24 Margaux Allison APRN, RAIL SPLITTER [address] [place] [address] Nurse Practitioner Advanced Practice Nurse 11/07/24 documented as of this encounter
--- OUTSIDE RECORDS SUMMARY | 2025-09-04 17:35 | XMS_ITS | Clinical Summary ---
Author Organization [facility] Address [address] [facility] [place] [address] Phone Care Team Providers Care Functional Analyst Name Role Phone Bianka Oneill Primary Care Provider + Suresh Gleason MD Unavailable Margaux Allison APRN, VETERINARY VIROLOGIST Unavailable Allergies Active Allergy Reactions Criticality Noted Date Comments Hydroxyzine Anxiety 05/06/2025 Medications Docusate Calcium (STOOL SOFTENER PO) Take by mouth. Ac tive Mirena, 52 MG, 20 MCG/DAY IUD 1 Intra Uterine Device by Intrauterine route. 10/29/19 25 Active busPIRone (BUSPAR) 15 MG Tablet Take 0.5 Tablets by mouth 2 times daily. 60 Tablet 05/06/20 25 Active Additional Information Patient not taking.Reported on 08/08/2025 HYDROcodone-steven taminophen (NORCO) 5-325 MG TabletIndicatio ns:Acute pain of left knee Take 1 Tablet by mouth every 4 hours as needed for Moderate or more severe pain. 12 Tablet 05/23/20 25 Active traMADol (ULTRAM) 50 MG TabletIndicatio ns:Knee pain, unspecified chronicity, unspecified laterality TAKE 1 TABLET BY MOUTH EVERY 6 HOURS NEEDED FOR MODERATE TO SEVERE PAIN 30 Tablet 07/15/20 25 Active ondansetron (ZOFRAN-ODT) 4 MG TABLET DISPERSIBLE Take 1 Tablet by mouth every 8 hours as needed for Nausea - 1st line. 30 Tablet 1 08/08/20 25 Active propranolol (INDERAL) 10 MG Tablet Take 1 Tablet by mouth 3 times daily as needed (anxiety). 30 Tablet 08/08/20 25 Active clotrimazole-be tamethasone (LOTRISONE) 1-0.05 % Cream Application Site: apply 2 times daily to under arm area 45 g 08/08/20 25 Active ondansetron (ZOFRAN-ODT) 4 MG TABLET DISPERSIBLE Take 1 Tablet by mouth every 8 hours as needed for Nausea - 1st line. 30 Tablet 11/22/19 25 025 Discontinu ed(Reorder ) meloxicam (MOBIC) 15 MG Tablet Take 15 mg by mouth daily. 07/21/20 25 025 Hospital, Clinic, or Other Facility Administered Medication Ordered Dose Route Frequency Start Date End Date Status cyanocobalamin (VITAMIN B-12) injection 1,000 mcgIndications:B12 deficiency 1000 mcg IM ONCE 08/08/2025 08/08/2025 Ended Active Problems Problem Noted Date Diagnosed Date B12 deficiency 10/31/2024 Iron deficiency anemia 01/26/2023 Menorrhagia with regular cycle Encounters Date Type Department Care Team Description 08/08/2025 3:20 PM GROCERY BUYER Office Visit [facility] Medical Group [facility] [address] [place] [address] Bianka Oneill PAC Anxiety (Primary Dx); B12 deficiency; Dermatitis Discharge Disposition: Discharged to home or Selfcare 08/08/2025 Travel 07/29/2025 2:40 PM GROCERY BUYER Office Visit [facility] Oncology Services [address] [place] [address] Pepper Reyes PAC Iron deficiency anemia, unspecified iron deficiency anemia type (Primary Dx); B12 deficiency; Menorrhagia with regular cycle Discharge Disposition: Discharged to home or Selfcare 07/29/2025 Travel 07/24/2025 Results Follow-Up [facility] - [facility] Center Oncology Services [address] [place] [phone] Pepper Reyes Letitia, PAC FERRITIN, IRON,TRANSFERN,CALC.T IBC,%SAT, VITAMIN B12, CBC WITH AUTO DIFFERENTIAL 07/22/2025 Travel 07/12/2025 Refill [facility] [address] [place] [address] Bianka Oneill, YARED Medication Refill from Last 3 Months Immunizations Immunization Administration Dates Next Due DTAP VACCINE 06/23/2005, 5,2004,05/31 HEP B/HIB Combined Vaccine 2004 Hepatitis B Vaccine, Pediatric/adolescent 2004,2004 Hib (HbOC) 06/23/2005,2004,2004 Hib Vaccine,unspecified Formulation 06/23/2005,1 09/26/2003 Inactivated Polio Vaccine 06/23/2005,2004, 2004 Influenza Vaccine, Quadrivalent, PF 08/13/2021 Influenza Vaccine,unspecifie d Formulation 08/13/2021,06/23/2005,2004,09/22 Influenza, Seasonal, Injecta ble, Undefined 07/21/2014,07/01/2013,08/10/2011,08/20,07/21/2010 MMR Vaccine 2005 Meningococcal MCV4O 03/24/2020 Pneumococcal Vaccine Peds - 7 Valent 02/2005,2004,2004,05/31 TB Skin Test 01/13/2023 TDAP Vaccine 01/13/2023 Tuberculin Skin Test; Purifi ed Protein Derivative Solutiol 01/13/2023,02/16/2022,02/09/2022 Varicella Vaccine Live 01/20/2023,2005 Family History Medical History Relation Name Comments Diabetes Father Job Hypertension Father Job Heart Attack Maternal Grandmother Lauren Hypertension Mother Nathalie Osteoarthritis Mother Nathalie Relation Name Status Comments Father Job Alive Maternal Grandmother Lauren Alive Mother Nathalie Alive Social History Tobacco [...] Sign Reading Time Taken Comments Blood Pressure 116/70 08/08/2025 3:19 PM GROCERY BUYER Pulse 107 08/08/2025 3:19 PM GROCERY BUYER Temperature 36.4 C (97.5 F) 08/08/2025 3:19 PM GROCERY BUYER Respiratory Rate 16 08/08/2025 3:19 PM GROCERY BUYER Oxygen Saturation 96% 08/08/2025 3:19 PM GROCERY BUYER Inhaled Oxygen Concentration - - Weight 99.8 kg (220 lb) 08/08/2025 3:19 PM GROCERY BUYER Height 157.5 cm (5' 2) 08/08/2025 3:19 PM GROCERY BUYER Body Mass Index 40.24 08/08/2025 3:19 PM GROCERY BUYER Plan of Treatment Upcoming Encounters Date Type Department Care Team (Late st Contact Info) Description 12/09/2025 2:40 PM CDT Office Visit [facility] Medical Group Family [facility] [address] [place] [phone] Bianka Oneill, PAC [address] [place] [address] 01/26/2026 2:40 PM CDT Office Visit [facility] - [facility] Center Oncology Services [address] [place] [phone] Pepper Reyes, PAC [address] [place] [address] Discharge Disposition: Discharged to home or Selfcare Health Maintenance Due Date Last Done Comments Hepatitis C Virus (HCV) Screening 2004 Human Papillomavirus (HPV) Immunization (1 - 3-dose series) 2019 Meningococcal B Immunization (1 of 2 - Standard) 2020 Pap Smear 2025 Influenza Immunization (#1) 05/19/202507/20, 08/13/2021, 07/21/2014, Additional history exists SARS-COV-2 Immunization ( - 2024- season) 2025 02/01/2022, 09/03/2021, 08/13/2021 DTaP/Tdap/Td Immunization (6 - Td or Tdap) 01/13/2033 01/13/2023, 06/23/2005, 2004, Additional history exists Respiratory Syncytial Virus (RSV) Immunization (Adult) (1 - 1-dose 75+ series) 2079 Hepatitis B Immunization Completed 005, 2004, 2004 Measles Mumps Rubella (MMR) Immunization Discontinued 2005 Pneumococcal Immunization Combined Aged Out 06/23/2005, 2004, 2004, Additional history exists No longer eligible based on patient's age to complete this topic Polio (IPV) Immunization Discontinued 005, 2004, 2004 Meningococcal Immunization (ACWY) Completed 03/24/2020 Varicella Immunization Completed 01/20/2023, 2004 Rotavirus Immunization Aged Out No lo nger eligible based on patient's age to complete this topic Goals Goal Patient Goal Type Associated Problems Recent Progress Patient-Stated? Author just want to feel normal Behavioral Health On track(2023 4:08 PM GROCERY BUYER) Yes Che Dickerson, SHIRT OPERATOR Note: Goal/Objective: Decrease anxious and depressive symptoms. Anticipated Time Frame for Goal Completion: 6 months Goal Reviewed with: patient Readiness to change: Ready to change Department associated with goal: [facility] BEHAVIORAL HEALTH SERVICES Steps [...] Diagnosis Comments CBC WITH AUTO DIFFERENTIAL Routine 07/22/2025 2:37 PM GROCERY BUYER Iron deficiency anemia, unspecified iron deficiency anemia type COMPLETE BLOOD COUNT (CBC) WITH DIFF Routine 07/22/2025 2:37 PM GROCERY BUYER Iron deficiency anemia, unspecified iron deficiency anemia type VITAMIN B12 Routine 07/22/2025 2:37 PM GROCERY BUYER B12 deficiency IRON,TRANSFERN,CALC.T IBC,%SAT Routine 07/22/2025 2:37 PM GROCERY BUYER Iron deficiency anemia, unspecified iron deficiency anemia type FERRITIN Routine 07/22/2025 2:37 PM GROCERY BUYER Iron deficiency anemia, unspecified iron deficiency anemia type from Last 3 Months Results * IRON,TRANSFERN,CALC.TIBC,%SAT (07/22/2025 2:37 PM GROCERY BUYER) IRON 74 25 - 156 mcg/dL 07/22/2025 8:19 PM GROCERY BUYER [facility] TRANSFERRIN 285 180 - 382 mg/dL 07/22/2025 8:19 PM GROCERY BUYER [facility] TIBC, CALCULATED 356 265 - 497 mcg/dL 07/22/2025 8:19 PM GROCERY BUYER [facility] % SATURATION * 21 15 - 62 % 07/22/2025 8:19 PM GROCERY BUYER [facility] Blood Venipuncture / Unknown 07/22/2025 2:37 PM GROCERY BUYER 07/22/2025 8:06 PM GROCERY BUYER Pepper Reyes PAC CHEMISTRY ORDERABLES Mayela l Result [facility] [address] [place] [address] * CBC WITH AUTO DIFFERENTIAL (07/22/2025 2:37 PM GROCERY BUYER) WBC 7.09 4.00 - 12.00 10(3)/mcL 07/22/2025 4:11 PM GROCERY BUYER [facility] RBC 4.91 3.80 - 5.30 10(6)/mcL 07/22/2025 4:11 PM [facility] HEMOGLOBIN (HGB) 13.9 12.0 - 15.8 g/dL 07/22/2025 4:11 PM [facility] HEMATOCRIT (HCT) 42.1 36.0 - 47.0 % 07/22/2025 4:11 PM [facility] MCV 85.7 82.0 - 96.0 fL 07/22/2025 4:11 PM [facility] MCH 28.3 26.0 - 34.0 pg 07/22/2025 4:11 PM [facility] MCHC 33.0 31.0 - 36.0 g/dL 07/22/2025 4:11 PM [facility] PLATELET COUNT 229 140 - 440 10(3)/mcL 07/22/2025 4:11 PM [facility] RDW 13.2 11.8 - 15.5 % 07/22/2025 4:11 PM [facility] MPV 10.8 9.7 - 12.4 fL 07/22/2025 4:11 PM [facility] NEUTROPHILS 63.3 47.0 - 73.0 % 07/22/2025 4:11 PM [facility] LYMPHOCYTES 27.4 18.0 - 42.0 % 07/22/2025 4:11 PM [facility] MONOCYTES 6.2 4.0 - 12.0 % 07/22/2025 4:11 PM [facility] EOSINOPHILS 2.1 0.0 - 5.0 % 07/22/2025 4:11 PM [facility] BASOPHILS 0.6 0.0 - 1.0 % 07/22/2025 4:11 PM [facility] IMMATURE GRANULOCYTE 0.4 0.0 - 0.4 % 07/22/2025 4:11 PM [facility] ABSOLUTE NEUTROPHILS 4.49 1.60 - 7.70 10(3)/[facility] 07/22/2025 4:11 PM [facility] ABSOLUTE LYMPHOCYTES 1.94 1.30 - 3.20 10(3)/[facility] 07/22/2025 4:11 PM [facility] ABSOLUTE MONOCYTES 0.44 0.20 - 1.00 10(3)/[facility] 07/22/2025 4:11 PM [facility] ABSOLUTE EOSINOPHIL 0.15 0.00 - 0.40 10(3)/[facility] 07/22/2025 4:11 PM [facility] ABSOLUTE BASOPHILS 0.04 0.00 - 0.10 10(3)/[facility] 07/22/2025 4:11 PM [facility] ABSOLUTE IMMATURE GRANULOCYTE 0.03 0.00 - 0.03 10 (3) mcL. 07/22/2025 4:11 PM [facility] NRBC PER 100 WBC 0 07/22/20 25 4:11 PM [facility] Blood Venipuncture / Unknown 07/22/2025 2:37 PM GROCERY BUYER 07/22/2025 4:11 PM GROCERY BUYER us Pepper Reyes PAC HEMATOLOGY ORDERABLES Fin al Result [facility] [address] [place] [address] * VITAMIN B12 (07/22/2025 2:37 PM GROCERY BUYER) VITAMIN B12 272 213 - 816 pg/mL 07/22/2025 8:44 PM GROCERY BUYER [facility] Blood Venipuncture / Unknown 07/22/2025 2:37 PM GROCERY BUYER 07/22/2025 8:06 PM GROCERY BUYER [facility] PAC CHEMISTRY ORDERABLES Mayela l Result [facility] [address] [place] [address] * FERRITIN (07/22/2025 2:37 PM GROCERY BUYER) FERRITIN 14 5 - 204 ng/mL 07/22/2025 8:38 PM GROCERY BUYER [facility] Blood Venipuncture / Unknown 07/22/2025 2:37 PM GROCERY BUYER 07/22/2025 8:06 PM GROCERY BUYER [facility] PAC CHEMISTRY ORDERABLES Mayela l Result Performing Organization Address City/[facility] Co de Phone Number [facility] [address] [place] [address] from Last 3 Months Additional Health Concerns Infection Onset Date Last Indicated MRSA 03/23/2023 03/23/2023 [employer] Care Teams Functional Analyst Relationship Specialty Start Date End Date Bianka Oneill PAC [address] [place] [address] PCP - General Physician Lab Animal Technologist 08/18/22 Suresh Gleason MD [address] [phone] Consulting Physician General Surgery 03/11/24 Margaux Allison APRN, VETERINARY VIROLOGIST [address] [place] [address] Nurse Practitioner Advanced Practice Nurse 11/07/24
--- OUTSIDE RECORDS SUMMARY | 2025-09-04 17:35 | XMS_ITS | Encounter Summary ---
Author Organization [facility] Address [address] [place] [address] Phone Care Team Providers Care Division Operations Specialist Name Role Phone Bianka Oneill Primary Care Provider + Suresh Gleason MD Unavailable Margaux Allison APRN, JAVA FLEX DEVELOPER Unavailable Reason for Visit * Reason Comments Medication Refill Encounter Details Date Type Department Care Team (Late st Contact Info) Description 10/29/2022 Refill [facility] [address] [place] [address] Bianka Oneill PAC [address] [place] [address] Medication Refill Social History Tobacco Use Types [...] Coronavirus/COVID-19? No / Unsure 10/29/2022 10:54 AM CRIMINAL JUSTICE DEPARTMENT CHAIR documented as of this encounter Functional Status * Question Answer Date of Assessment Author Best Eye Response 4-->(E4) spontaneous 3 10:54 AM Allyson Mendez RN Best Verbal Response 5-->(V5) oriented 3 10:54 AM Allyson Mendez RN Best Motor Response 6-->(M6) obeys commands 10/19 10:54 AM Allyson Mendez RN [place] Coma Scale Score 15 10/29/2022 10:54 AM Allyson Mendez RN * Question Answer Date of Assessment Author Pain Description constant;cramping 10/29/2022 1:03 PM Osiris Foss RN (0-10) Pain Rating: Activity 8 10/29/2022 1:03 PM Cornelio Foss RN (0-10) Pain Rating: Rest 8 10/29/2022 1:03 PM Osiris Foss RN * Hernández Fall Risk Question Answer Date of Assessment Author History of Falling, Immediat e or Within 3 Months 0 10/29/2022 10:54 AM Allyson Mendez R N Secondary Diagnosis 0 10/29/2022 10:54 AM C Allyson Couch RN Ambulatory Aid 0 10/29/2022 10:54 AM Allyson William RN Intravenous Therapy/Heparin Lock 0 10/29/19 23 10:54 AM Allyson Mendez RN Gait/Transferring 0 10/29/2022 10:54 AM Allyson Mendez RN Mental Status 0 10/29/2022 10:54 AM Allyson Mendez RN Morse Fall Risk Score 0 10/29/2022 10:54 AM Allyson Mendez RN * Question Answer Date of Assessment Author SpO2 100 10/29/2022 1:03 PM Osiris Adhikari RN O2 Device None (Room air) 10/29/2022 10:54 AM Allyson Chacko RN * Safety Factors Answer Date of Assessment Author bed in low position;call light in reach 10/29/19 10:54 AM Allyson Mendez RN * Question Answer Date of Assessment Author BP 151/91 10/29/2022 10:54 AM Allyson Mendez RN Temp 97.5 10/29/2022 10:54 AM Allyson Mendez RN Pulse 82 10/29/2022 1:03 PM Osiris Adhikari RN Resp 18 10/29/2022 1:03 PM Osiris Adhikari RN Heart Rate (Monitor) 98 10/29/2022 10:54 AM Allyson Mendez RN documented as of this encounter Mental Status * Question Answer Entry Date Author Best Eye Response 4-->(E4) spontaneous 3 10:54 AM Allyson Mendez RN Best Verbal Response 5-->(V5) oriented 3 10:54 AM Allyson Mendez RN Best Motor Response 6-->(M6) obeys commands 10/19 10:54 AM Allyson Mendez RN [place] Coma Scale Score 15 10/29/2022 10:54 AM Allyson Mendez RN * Question Answer Entry Date Author Pain Description constant;cramping 10/29/2022 1: 03 PM Osiris Foss RN (0-10) Pain Rating: Activity 8 10/29/2022 1:03 PM Osiris Foss RN (0-10) Pain Rating: Rest 8 023 1:03 PM Osiris Foss RN * Question Answer Entry Date Author SpO2 100 10/29/2022 1:03 PM Osiris Adhikari RN O2 Device None (Room air) 10/29/2022 10:54 AM Allyson Chacko RN * Safety Factors Answer Entry Date Author bed in low position;call light in reach 10/29/19 10:54 AM Allyson Mendez RN * Question Answer Entry Date Author BP 151/91 10/29/2022 10:54 AM CRIMINAL JUSTICE DEPARTMENT CHAIR Allyson Hardy RN Temp 97.5 10/29/2022 10:54 AM CRIMINAL JUSTICE DEPARTMENT CHAIR Allyson Hardy RN Pulse 82 10/29/2022 1:03 PM CRIMINAL JUSTICE DEPARTMENT CHAIR Osiris Fiore RN documented in this encounter Miscellaneous Notes * Telephone Encounter - Bianka Oneill PAC - 11/25/2022 12:27 PM CRIMINAL JUSTICE DEPARTMENT CHAIR Duplicate INAL JUSTICE DEPARTMENT CHAIR * Telephone Encounter - Liset Fisher RN [...] order placed on 09/30/2022 4:17 PM Order [id number]: celecoxib (CeleBREX) 200 MG Capsule (For orders [...] Dept 10/21/22 Office Visit Bianka Oneill PAC [facility] 09/30/22 Office Visit Bianka Oneill PAC [facility] 08/18/22 Office Visit Bianka Oneill PAC [facility] Showing recent visits within past 365 days and meeting all other requirements Future Appointments Date Type Provider Dept 11/29/22 Appointment Bianka Oneill PAC [facility] Showing future appointments within next 90 [...] 10/29/2022 38.0 36.0 - 47.0 % Final INAL JUSTICE DEPARTMENT CHAIR documented in this encounter Plan of Treatment Upcoming Encounters Date Type Department Care Team (Late st Contact Info) Description 12/09/2025 2:40 PM CDT Office Visit [facility] [address] [place] [address] Bianka Oneill [facility] [address] [place] [address] 01/26/2026 2:40 PM CDT Office Visit [facility] On[facility] Services [address] [place] [address] Pepper Reyes, PAC [address] [place] [address] Discharge Disposition: Discharged to home or Selfcare documented as of this encounter Visit Diagnoses Not on filedocumented in this encounter Additional Health Concerns Infection Onset Date Last Indicated Resolved Time MRSA 03/23/2023 03/23/2023 C. difficile Rule-Out 11/07/2024 12/09/20242024 12:16 AM CRIMINAL JUSTICE DEPARTMENT CHAIR C. difficile Rule-Out 12/09/2024 12/09/20242024 4:53 PM CDT Assessment Noted Time PHQ-9 Depression Total Score: 6 08/18/20 8:00 AM CRIMINAL JUSTICE DEPARTMENT CHAIR documented as of this encounter Care Teams Division Operations Specialist Relationship Specialty Start Date End Date Bianka Oneill PAC [address] [place] [address] PCP - General Physician Multi Sensor Operator 08/18/22 Suresh Gleason MD [address] [address] Consulting Physician General Surgery 03/11/24 Margaux Allison APRN, JAVA FLEX DEVELOPER [address] [place] [address] Nurse Practitioner Advanced Practice Nurse 11/07/24 documented as of this encounter
--- OUTSIDE RECORDS SUMMARY | 2025-09-04 17:35 | XMS_ITS | Encounter Summary ---
Author Organization [facility] Address [address] [place] [address] Phone Care Team Providers Care Stave Jointer Name Role Phone Bianka Oneill Primary Care Provider + Suresh Gleason MD Unavailable Margaux Allison APRN, TECHNICIAN TELECOMMUNICATION SYSTEMS Unavailable Encounter Details Date Type Department Care Team (Late st Contact Info) Description 06/23/2023 Behavioral Health [facility] [address] [place] [id number] Che Dickerson, JUNIOR WEB DEVELOPER [address] [place] [address] Social History Tobacco Use Types Packs/Day Years [...] Description 12/09/2025 2:40 PM CDT Office Visit [facility] [address] [place] [address] Bianka Oneill, PAC [address] [place] [address] 01/26/2026 2:40 PM CDT Office Visit [facility] On[facility] Services [address] [place] [address] Pepper Reyes, PAC [address] [place] [address] Discharge Disposition: Discharged to home or Selfcare documented as of this encounter Goals Goal Patient Goal Type Associated Problems Recent Progress Patient-Stated? Author just want to feel normal Behavioral Health On track(2023 4:08 PM BEAUTY SHOP MANAGER) Yes Che Dickerson, JUNIOR WEB DEVELOPER Note: Goal/Objective: Decrease anxious and depressive symptoms. [...] C. difficile Rule-Out 11/07/2024 12/09/20242024 12:16 AM BEAUTY SHOP MANAGER C. difficile Rule-Out 12/09/2024 12/09/20242024 4:53 PM CDT Assessment Noted Time PHQ-9 Depression Total Score: 0 05/29/20 10:33 AM CDT documented as of this encounter Care Teams Stave Jointer Relationship Specialty Start Date End Date Bianka Oneill PAC [address] [place] [address] PCP - General Physician Inspecting Supervisor 08/18/22 Suresh Gleason MD [address] [address] Consulting Physician General Surgery 03/11/24 Margaux Allison APRN, TECHNICIAN TELECOMMUNICATION SYSTEMS [address] [place] [address] Nurse Practitioner Advanced Practice Nurse 11/07/24 documented as of this encounter
--- OUTSIDE RECORDS SUMMARY | 2025-09-04 17:35 | XMS_ITS | Encounter Summary ---
Author Organization [facility] Address [address] [place] [address] Phone Care Team Providers Care Breeding Technician Name Role Phone Bianka Oneill Primary Care Provider + Suresh Gleason MD Unavailable Margaux Allison APRN, COACH BUILDER Unavailable Reason for Visit * Reason Comments Medication Refill Encounter Details Date Type Department Care Team (Late st Contact Info) Description 07/13/2023 Refill [facility] [address] [place] [address] Bianka Oneill PAC [address] [place] [address] Medication Refill Social History Tobacco Use Types [...] Description 12/09/2025 2:40 PM CDT [facility] [address] [place] [address] Bianka Oneill PAC [address] [place] [address] 01/26/2026 2:40 PM CDT [facility] [address] [place] [address] Pepper Reyes PAC [address] [place] [address] Discharge Disposition: Discharged to home or Selfcare documented as of this encounter Goals Goal Patient Goal Type Associated Problems Recent Progress Patient-Stated? Author just want to feel normal Behavioral Health On track(2023 4:08 PM SHEET METAL SUPERINTENDENT) Yes Che Dickerson LCSW Note: Goal/Objective: Decrease anxious and depressive symptoms. Anticipated Time Frame for Goal Completion: 6 months Goal Reviewed with: patient Readiness to change: Ready to change Department associated with goal: [facility] Steps [...] C. difficile Rule-Out 11/07/2024 12/09/20242024 12:16 AM SHEET METAL SUPERINTENDENT C. difficile Rule-Out 12/09/2024 12/09/20242024 4:53 PM CDT Assessment Noted Time PHQ-9 Depression Total Score: 0 05/29/20 23 10:33 AM CDT documented as of this encounter Care Teams Breeding Technician Relationship Specialty Start Date End Date Bianka Oneill PAC [address] [place] [address] PCP - General Physician Lead Consultant 08/18/22 Suresh Gleason MD [address] [address] Consulting Physician General Surgery 03/11/24 Margaux Allison APRN, COACH BUILDER [address] [place] [address] Nurse Practitioner Advanced Practice Nurse 11/07/24 documented as of this encounter
--- OUTSIDE RECORDS SUMMARY | 2025-09-04 17:35 | XMS_ITS | Encounter Summary ---
Author Organization [facility] Address [address] [place] [address] Phone Care Team Providers Care Employment Specialist Name Role Phone Bianka Oneill Primary Care Provider + Suresh Gleason MD Unavailable Margaux Allison APRN, FLUME MAKER Unavailable Reason for Visit * Reason Onset Date Comments Results 03/10/2025 Encounter Details Date Type Department Care Team (Late st Contact Info) Description 03/10/2025 Telephone [facility] [address] [place] [phone] Bianka Oneill, PAC [address] [place] [address] Results Social History Tobacco Use Types Packs/Day Years Used Date Smoking Tobacco: Never Smokeless Tobacco: Never Alcohol Use Standard Drinks/Week Comments Never 0 (1 standard drink = 0.6 oz pur e alcohol) PHQ-2 Answer Date Recorded Total Score - Questions 1-9 0 09/18 Education Answer Date Recorded What is the [...] encounter Miscellaneous Notes * Telephone Encounter - Ivette Bear APRN, CNP - 03/10/2025 8:52 AM CDT FINDINGS: The lungs are clear of active infiltrates. The heart size and pulmonary vascularity are within normal limits. No pleural effusion. No pneumothorax. * Telephone Encounter - Dea Simon RN - 03/10/2025 8:34 AM CDT Situation: knee and lumbar xrays Background: Patient contacting PCP office. Assessment: Patient would like results from xrays completed on 02/25/2025. Per chart review, images have not be read by [facility] radiology. sammying machine operator contacted [facility] radiology and spoke with Dixie. Dixie states she will logan imaging to be read JAME. Recommendation: Routing to provider to notify. documented in this encounter Plan of Treatment Upcoming Encounters Date Type Department Care Team (Late st Contact Info) Description 12/09/2025 2:40 PM CDT Office Visit [facility] Family [facility] [address] [place] [address] Bianka Oneill, PAC [address] [place] [address] 01/26/2026 2:40 PM CDT [facility] [address] [place] [address] Pepper Reyes, PAC [address] [place] [address] Discharge Disposition: Discharged to home or Selfcare documented as of this encounter Goals Goal Patient Goal Type Associated Problems Recent Progress Patient-Stated? Author just want to feel normal Behavioral Health On track(2023 4:08 PM FLUME MAKER) Yes Che Dickerson LCSW Note: Goal/Objective: Decrease anxious and depressive symptoms. Anticipated Time Frame for Goal Completion: 6 months Goal Reviewed with: patient Readiness to change: Ready to change [facility] Steps to [...] Noted Time PHQ-9 Depression Total Score: 0 10/04/19 10:37 AM FLUME MAKER documented as of this encounter Care Teams Employment Specialist Relationship Specialty Start Date End Date Bianka Oneill PAC [address] [place] [address] PCP - General Physician Flatwork Washer 08/18/22 Suresh Gleason MD [address] [address] Consulting Physician General Surgery 03/11/24 Margaux Allison APRN, FLUME MAKER [address] [place] [address] Nurse Practitioner Advanced Practice Nurse 11/07/24 documented as of this encounter
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
[2025-09-04] MEDS: LIDOCAINE 1% LOCAL INJ 10 ML VIAL INFILTRATE (17:46)
[2025-09-04] MEDS: TETANUS,DIPHTHERIA,AC PERTUSSIS ADULT 0.5 ML (ADACEL) IM (17:47)
--- NOTE | 2025-09-04 18:05 | ED_ITS ---
HPI - Wound/Laceration General Chief Complaint: Wound/Laceration Stated Complaint: thumb laceration Time Seen by Provider: 09/04/25 17:34 Source: patient Mode of arrival: ambulatory Limitations: no limitations History of Present Illness HPI narrative: This is a 20-year-old female with no significant past medical history ago cut by a piece of glass on the thumb on the radial surface at the base approximately2.5cm gaping with no numbness or tingling has good range of motion in her fingers and wrist and strong brisk radial pulse no other in no other injuries noted Onset (ago): hour(s) Location: other Extremity Location: Right: hand (Radial surface laceration of the right thumb gaping approximately2.5cm) Place: home Patient tetanus UTD: No Context: accidental Associated symptoms: none Related Data Home Medications ?Medication ?Instructions ?Recorded ?Confirmed ?Last Taken ?Type No Home Medications 09/15/24 09/15/24 U nknown History Allergies Allergy/AdvReac Type Severity Reaction Status Date / Time No Known Allergies Allergy Verified 09/04/25 17:37 Review of Systems Review of Systems: All systems reviewed & are unremarkable except as noted in HPI and below PMFSH Past Medical History Medical History GDM (gestational diabetes mellitus) Surgical History Surgical History No pertinent past surgical history Family History Family History Mother Hypertension Father Type 2 diabetes mellitus Grandparent Type 2 diabetes mellitus Social History Social History Smoking status: Never smoker Second hand tobacco smoke exposure: No Substance use: former Lack of Transportation: No Lack of Food: Never True Current Housing: I Have Housing Concerned About Future Housing: No Difficulty Paying Gas/Electric Bills: No Difficulty Paying for Meds: No Currently Unemployed: No Education: High School Diploma/GED Difficulty w/ Childcare or Family Care: No Spiritual care concerns: No Exam Const: General: healthy appearing and no acute distress Nutritional Appearance: well nourished Orientation/consciousness: patient oriented x3 Resp: Effort & Inspection: normal respiratory effort Auscultation: clear to auscultation bilaterally Cardio: Rate: regular rate Rhythm: regular rhythm GI: GI Palp: Yes Soft to palpation Auscultation: normal bowel sounds Skin: Wounds: wounds noted Other: Gaping laceration 2cm in length radial surface of her right thumb Neuro: General: patient oriented x3, moves all extremities and no meningeal signs Course Course Emergency Course: Medical decision making narrative: The patient was evaluated by myself in the emergency department. History obtained from the patient who is an independent historian and physical exam performed in witnessed by [facility]. Patient has a laceration approximately2.5cm in length a radial surface of her right thumb gaping, sutures were placed and patient was updated with her tetanus a triple antibiotic ointment was applied. Patient tolerated procedure well. Repeat assessment: Patient doing well on repeat exam with no acute distress Symptoms stable since arrival to the emergency department Repeat vitals are stable Patient agrees with discussion and after shared medical decision making and agrees with discharge All questions answered to the patient's satisfaction Follow-up in 8 days for suture removal by her primary care physician. Vital Signs Vital signs: Vital Signs Pulse Rate 102 H 09/04/25 17:33 Respiratory Rate 16 09/04/25 17:33 Blood Pressure 103/55 L 09/04/25 17:33 Pulse Oximetry 98 09/04/25 17:33 Oxygen Delivery Room Air 09/04/25 17:33 Pulse Rate 102 H 09/04/25 17:33 Respiratory Rate 16 09/04/25 17:33 Blood Pressure 103/55 L 09/04/25 17:33 Pulse Oximetry 98 09/04/25 17:33 Oxygen Delivery Room Air 09/04/25 17:33 Procedures Laceration Laceration 1: Date: 09/04/25 Time: 18:09 Site: upper extremity and hand Side (If applicable): right Size (cm): 2.5 Description: linear Depth: simple, single layer Local Anesthetic: lidocaine 1% Amount of anesthesia used (mL): 8 Pre-repair: wound explored, irrigated and irrigated extensively ====== Skin Level ====== Skin layer closed with: vicryl Size (cm): 4-0 Number of sutures: 7 Technique: simple, interrupted ====== Subcutaneous Layer ====== ====== Muscle Layer ====== ====== Tendon Layer ====== MDM Differential Diagnosis Differential Diagnosis: Laceration right thumb Critical Care Time Critical Care Time Critical Care Time: No Discharge Plan Discharge Clinical Impression: Laceration Patient Disposition: Home Condition: Stable Instructions: Antibiotic Form, Care For Your Stitches (ED), Laceration (ED) Additional Instructions: Advised follow-up with primary in 8 days for suture removal can use Tylenol or Motrin for pain. Use Neosporin daily for 3 days to affected area. Patient Language: Malian Prescriptions: No Action No Home Medications Follow-up/Referrals: Mai,GINETTE Osorio [Primary Care Provider, Unknown] Time of Disposition: 18:11
[2025-09-04] MEDS: NEOMYCIN/POLYMYXIN/BACITRACIN OINTMENT PACKET 1 PACKET TOPICAL (18:14)
--- OUTSIDE RECORDS SUMMARY | 2025-09-04 18:17 | XMS_ITS | Encounter Summary ---
Author Organization [facility] Address [address] [place] [address] Phone Care Team Providers Care Respiratory Coordinator Name Role Phone Bianka Oneill Primary Care Provider + Suresh Gleason MD Unavailable Margaux Allison APRN, CERTIFIED ORTHOPTIST Unavailable Reason for Visit * Reason Comments Medication Refill Encounter Details Date Type Department Care Team (Late st Contact Info) Description 07/13/2023 Refill [facility] [address] [place] [address] Bianka Oneill PAC [address] [place] [address] Medication Refill Social History Tobacco Use Types [...] [facility] Visit [facility] [address] [place] [address] Bianka Oneill PAC [address] [place] [address] 01/26/2026 2:40 PM CDT [facility] [address] [place] [address] Pepper Reyes PAC [address] [place] [address] Discharge Disposition: Discharged to home or Selfcare documented as of this encounter Goals Goal Patient Goal Type Associated Problems Recent Progress Patient-Stated? Author just want to feel normal Behavioral Health On track(2023 4:08 PM SPRING CRATER) Yes Che Dickerson LCSW Note: Goal/Objective: Decrease [...] C. difficile Rule-Out 11/07/2024 12/09/20242024 12:16 AM SPRING CRATER C. difficile Rule-Out 12/09/2024 12/09/20242024 4:53 PM CDT Assessment Noted Time PHQ-9 Depression Total Score: 0 05/29/20 23 10:33 AM CDT documented as of this encounter Care Teams Respiratory Coordinator Relationship Specialty Start Date End Date Bianka Oneill PAC [address] [place] [address] PCP - General Physician C.O.D. Clerk 08/18/22 Suresh Gleason MD [address] [address] Consulting Physician General Surgery 03/11/24 Margaux Allison APRN, CERTIFIED ORTHOPTIST [address] [place] [address] Nurse Practitioner Advanced Practice Nurse 11/07/24 documented as of this encounter
--- OUTSIDE RECORDS SUMMARY | 2025-09-04 18:17 | XMS_ITS | Encounter Summary ---
Author Organization [facility] Address [address] [place] [address] Phone Care Team Providers Care Health And Nutrition Specialist Name Role Phone Bianka Oneill Primary Care Provider + Suresh Gleason MD Unavailable Margaux Allison APRN, PAPER WOOD CUTTER Unavailable Encounter Details Date Type Department Care Team (Late st Contact Info) Description 09/04/2023 Telephone [facility] Oncology Services [address] [place] [phone] Pepper Reyes, PAC [address] [place], [place] [phone] Social History Tobacco Use Types Packs/Day Years [...] our office on an as needed basis. GRADER OPERATOR documented in this encounter Plan of Treatment Upcoming Encounters Date Type Department Care Team (Late st Contact Info) Description 12/09/2025 2:40 PM CDT Office Visit [facility] - [facility] [address] [place] [address] [facility] [address] [place] [address] 01/26/2026 2:40 PM CDT Office Visit [facility] Oncology Services [address] [place] [address] Pepper Reyes, PAC [address] [place] [address] Discharge Disposition: Discharged to home or Selfcare documented as of this encounter Goals Goal Patient Goal Type Associated Problems Recent Progress Patient-Stated? Author just want to feel normal Behavioral Health On track(2023 4:08 PM BUMP GRADER OPERATOR) Yes Che Dickerson, NURSE Note: Goal/Objective: Decrease anxious and depressive symptoms. [...] C. difficile Rule-Out 11/07/2024 12/09/20242024 12:16 AM BUMP GRADER OPERATOR C. difficile Rule-Out 12/09/2024 12/09/20242024 4:53 PM CDT Assessment Noted Time PHQ-9 Depression Total Score: 0 05/29/20 10:33 AM CDT documented as of this encounter Care Teams Health And Nutrition Specialist Relationship Specialty Start Date End Date Bianka Oneill PAC [address] [place] [address] PCP - General Physician Employee Benefits Coordinator 08/18/22 Suresh Gleason MD [address] [phone] Consulting Physician General Surgery 03/11/24 Margaux Allison APRN, PAPER WOOD CUTTER [address] [place] [address] Nurse Practitioner Advanced Practice Nurse 11/07/24 documented as of this encounter
--- OUTSIDE RECORDS SUMMARY | 2025-09-04 18:17 | XMS_ITS | Encounter Summary ---
Author Organization [facility] Address [address] [place] [address] Phone Care Team Providers Care Hand Quilter Name Role Phone Bianka Oneill Primary Care Provider + Suresh Gleason MD Unavailable Margaux Allison APRN, CLOUD OPERATIONS ENGINEER Unavailable Encounter Details Date Type Department Care Team (Late st Contact Info) Description 07/26/2023 [facility] [address] [place] [phone] Che Dickerson, DUMPLING MACHINE OPERATOR [address] [place] [address] Social History Tobacco Use Types Packs/Day Years [...] Coronavirus/COVID-19? No / Unsure 07/26/2023 11:17 AM ELECTROTYPE SERVICER documented as of this encounter Plan of Treatment Upcoming Encounters Date Type Department Care Team (Late st Contact Info) Description 12/09/2025 2:40 PM CDT Office Visit [facility] Medical Group - Family Medicine [facility] [address] [place] [address] Bianka Oneill, PAC [address] [place] [address] 01/26/2026 2:40 PM CDT Office Visit [facility] Oncology Services [address] [place] [address] Peppre Reyes, PAC [address] [place] [address] Discharge Disposition: Discharged to home or Selfcare documented as of this encounter Goals Goal Patient Goal Type Associated Problems Recent Progress Patient-Stated? Author just want to feel normal Behavioral Health On track(2023 4:08 PM ELECTROTYPE SERVICER) Yes Che Dickerson, DUMPLING MACHINE OPERATOR Note: Goal/Objective: Decrease anxious and depressive [...] C. difficile Rule-Out 11/07/2024 12/09/20242024 12:16 AM ELECTROTYPE SERVICER C. difficile Rule-Out 12/09/2024 12/09/20242024 4:53 PM CDT Assessment Noted Time PHQ-9 Depression Total Score: 0 05/29/20 10:33 AM CDT documented as of this encounter Care Teams Hand Quilter Relationship Specialty Start Date End Date Bianka Oneill PAC [address] [place] [address] PCP - General Physician Golf Tournament Consultant 08/18/22 Suresh Gleason MD [address] [address] Consulting Physician General Surgery 03/11/24 Margaux Allison APRN, CLOUD OPERATIONS ENGINEER [address] [place] [address] Nurse Practitioner Advanced Practice Nurse 11/07/24 documented as of this encounter
--- OUTSIDE RECORDS SUMMARY | 2025-09-04 18:17 | XMS_ITS | Encounter Summary ---
Author Organization [facility] Address [address] [place] [address] Phone Care Team Providers Care Video Editing Intern Name Role Phone Bianka Oneill Primary Care Provider + Suresh Gleason MD Unavailable Margaux Allison APRN, MUSIC AGENT Unavailable Encounter Details Date Type Department Care Team (Late st Contact Info) Description 10/05/2023 Behavioral [facility] [address] [place] [phone] Che Dickerson, REGISTERED ART THERAPIST [address] [place], [place] [phone] Social History Tobacco Use Types Packs/Day Years [...] Description 12/09/2025 2:40 PM CDT Office Visit [facility] Medical Group - Family Medicine [facility] [address] [place] [address] Bianka Oneill, PAC [address] [place] [address] 01/26/2026 2:40 PM CDT Office Visit [facility] Oncology Services [address] [place] [address] Pepper Reyes, PAC [address] [place] [address] Discharge Disposition: Discharged to home or Selfcare documented as of this encounter Goals Goal Patient Goal Type Associated Problems Recent Progress Patient-Stated? Author just want to feel normal Behavioral Health On track(2023 4:08 PM LENS GRINDER APPRENTICE) Yes Che Dickerson, REGISTERED ART THERAPIST Note: Goal/Objective: Decrease anxious and depressive [...] C. difficile Rule-Out 11/07/2024 12/09/20242024 12:16 AM LENS GRINDER APPRENTICE C. difficile Rule-Out 12/09/2024 12/09/20242024 4:53 PM CDT Assessment Noted Time PHQ-9 Depression Total Score: 0 05/29/20 10:33 AM CDT documented as of this encounter Care Teams Video Editing Intern Relationship Specialty Start Date End Date Bianka Oneill PAC [address] [place] [address] PCP - General Physician Supervisor Metalizing 08/18/22 Suresh Gleason MD #[address] [phone] Consulting Physician General Surgery 03/11/24 Margaux Allison APRN, MUSIC AGENT [address] [place] [address] Nurse Practitioner Advanced Practice Nurse 11/07/24 documented as of this encounter
--- OUTSIDE RECORDS SUMMARY | 2025-09-04 18:17 | XMS_ITS | Encounter Summary ---
Author Organization [facility] Address [address] [place] [address] Phone Care Team Providers Care Charge Weigher Name Role Phone Bianka Oneill Primary Care Provider + Suresh Gleason MD Unavailable Margaux Allison APRN, NITRO WORKER Unavailable Encounter Details Date Type Department Care Team (Late st Contact Info) Description 06/23/2023 Behavioral Health [facility] 1 [place] [phone] Che Dickerson, REGULATORY LEADER 1 [place] [address] Social History Tobacco Use Types Packs/Day Years [...] Description 12/09/2025 2:40 PM CDT Office Visit [facility] Medical Group - Family Medicine [facility] [address] [place] [address] Bianka Oneill, PAC [address] [place] [address] 01/26/2026 2:40 PM CDT Office Visit [facility] Oncology Services [address] [place] [address] Pepper Reyes, PAC [address] [place] [address] Discharge Disposition: Discharged to home or Selfcare documented as of this encounter Goals Goal Patient Goal Type Associated Problems Recent Progress Patient-Stated? Author just want to feel normal Behavioral Health On track(2023 4:08 PM FAMILY CASEWORKER) Yes Che Dickerson, REGULATORY LEADER Note: Goal/Objective: Decrease anxious and depressive symptoms. [...] C. difficile Rule-Out 11/07/2024 12/09/20242024 12:16 AM FAMILY CASEWORKER C. difficile Rule-Out 12/09/2024 12/09/20242024 4:53 PM CDT Assessment Noted Time PHQ-9 Depression Total Score: 0 05/29/20 10:33 AM CDT documented as of this encounter Care Teams Charge Weigher Relationship Specialty Start Date End Date Bianka Oneill PAC [address] [place] [address] PCP - General Physician Care Management Associate 08/18/22 Suresh Gleason MD #[address] [phone] Consulting Physician General Surgery 03/11/24 Margaux Allison APRN, NITRO WORKER [address] [place] [address] Nurse Practitioner Advanced Practice Nurse 11/07/24 documented as of this encounter
--- OUTSIDE RECORDS SUMMARY | 2025-09-04 18:18 | XMS_ITS | Clinical Summary ---
Author Organization [facility] Address [address] [facility] [place] [place] [address] Phone Care Team Providers Care Energy Conservation Representative Name Role Phone Bianka Oneill Primary Care Provider + Suresh Gleason MD Unavailable Margaux Allison APRN, FIBREGLASS LAY UP WORKER Unavailable Allergies Active Allergy Reactions Criticality Noted [...] Department Care Team Description 08/08/2025 3:20 PM SALES EFFECTIVENESS MANAGER Office Visit [facility] [address] [place] [address] Bianka Oneill PAC Anxiety (Primary Dx); B12 deficiency; Dermatitis Discharge Disposition: Discharged to home or Selfcare 08/08/2025 Travel 07/29/2025 2:40 PM SALES EFFECTIVENESS MANAGER Office Visit [facility] Oncology Services [address] [place] [address] Pepper Reyes PAC Iron deficiency anemia, unspecified iron deficiency anemia type (Primary Dx); B12 deficiency; Menorrhagia with regular cycle Discharge Disposition: Discharged to home or Selfcare 07/29/2025 Travel 07/24/2025 Results Follow-Up [facility] Oncology Services [address] [place] [phone] Pepper Reyes Letitia, PAC FERRITIN, IRON,TRANSFERN,CALC.T IBC,%SAT, VITAMIN B12, CBC WITH AUTO DIFFERENTIAL 07/22/2025 Travel 07/12/2025 Refill [facility] [address] [place] [address] Bianka Oneill, YARED Medication Refill [...] Comments Blood Pressure 116/70 08/08/2025 3:19 PM SALES EFFECTIVENESS MANAGER Pulse 107 08/08/2025 3:19 PM SALES EFFECTIVENESS MANAGER Temperature 36.4 C (97.5 F) 08/08/2025 3:19 PM SALES EFFECTIVENESS MANAGER Respiratory Rate 16 08/08/2025 3:19 PM SALES EFFECTIVENESS MANAGER Oxygen Saturation 96% 08/08/2025 3:19 PM SALES EFFECTIVENESS MANAGER Inhaled Oxygen Concentration - - Weight 99.8 kg (220 lb) 08/08/2025 3:19 PM SALES EFFECTIVENESS MANAGER Height 157.5 cm (5' 2) 08/08/2025 3:19 PM SALES EFFECTIVENESS MANAGER Body Mass Index 40.24 08/08/2025 3:19 PM SALES EFFECTIVENESS MANAGER Plan of Treatment Upcoming Encounters Date Type Department Care Team (Late st Contact Info) Description 12/09/2025 2:40 PM CDT Office Visit [facility] Medical [facility] Family Medicine [facility] [address] [place] [address] Bianka Oneill, PAC [address] [place] [address] 01/26/2026 2:40 PM CDT Office Visit [facility] Oncology Services [address] [place] [phone] Pepper Reyes, PAC [address] [place] [address] Discharge Disposition: Discharged to home or Selfcare [...] normal Behavioral Health On track(2023 4:08 PM SALES EFFECTIVENESS MANAGER) Yes Che Dickerson, SUPERVISOR METER SHOP Note: Goal/Objective: Decrease anxious and depressive symptoms. [...] WITH AUTO DIFFERENTIAL Routine 07/22/2025 2:37 PM SALES EFFECTIVENESS MANAGER Iron deficiency anemia, unspecified iron deficiency anemia type COMPLETE BLOOD COUNT (CBC) WITH DIFF Routine 07/22/2025 2:37 PM SALES EFFECTIVENESS MANAGER Iron deficiency anemia, unspecified iron deficiency anemia type VITAMIN B12 Routine 07/22/2025 2:37 PM SALES EFFECTIVENESS MANAGER B12 deficiency IRON,TRANSFERN,CALC.T IBC,%SAT Routine 07/22/2025 2:37 PM SALES EFFECTIVENESS MANAGER Iron deficiency anemia, unspecified iron deficiency anemia type FERRITIN Routine 07/22/2025 2:37 PM SALES EFFECTIVENESS MANAGER Iron deficiency anemia, unspecified iron deficiency anemia type from Last 3 Months Results * IRON,TRANSFERN,CALC.TIBC,%SAT (07/22/2025 2:37 PM SALES EFFECTIVENESS MANAGER) IRON 74 25 - 156 mcg/dL 07/22/2025 8:19 PM SALES EFFECTIVENESS MANAGER [facility] TRANSFERRIN 285 180 - 382 mg/dL 07/22/2025 8:19 PM SALES EFFECTIVENESS MANAGER [facility] TIBC, CALCULATED 356 265 - 497 mcg/dL 07/22/2025 8:19 PM SALES EFFECTIVENESS MANAGER [facility] % SATURATION * 21 15 - 62 % 07/22/2025 8:19 PM SALES EFFECTIVENESS MANAGER [facility] Blood Venipuncture / Unknown 07/22/2025 2:37 PM SALES EFFECTIVENESS MANAGER 07/22/2025 8:06 PM SALES EFFECTIVENESS MANAGER Pepper Reyes PAC CHEMISTRY ORDERABLES Mayela l Result [facility] [address] [place] [address] * CBC WITH AUTO DIFFERENTIAL (07/22/2025 2:37 PM SALES EFFECTIVENESS MANAGER) WBC 7.09 4.00 - 12.00 10(3)/mcL 07/22/2025 4:11 PM SALES EFFECTIVENESS MANAGER [facility] RBC 4.91 3.80 - 5.30 10(6)/mcL 07/22/2025 4:11 PM [facility] HEMOGLOBIN (HGB) 13.9 12.0 - 15.8 g/dL 07/22/2025 4:11 PM [facility] HEMATOCRIT (HCT) 42.1 36.0 - 47.0 % 07/22/2025 4:11 PM [facility] MCV 85.7 82.0 - 96.0 fL 07/22/2025 4:11 PM [facility] MCH 28.3 26.0 - 34.0 pg 07/22/2025 4:11 PM [facility] MCHC 33.0 31.0 - 36.0 g/dL 07/22/2025 4:11 PM [facility] PLATELET COUNT 229 140 - 440 10(3)/mcL 07/22/2025 4:11 PM [facility] RDW 13.2 11.8 - 15.5 % 07/22/2025 4:11 PM [facility] MPV 10.8 9.7 - 12.4 fL 07/22/2025 4:11 PM [facility] NEUTROPHILS 63.3 47.0 - 73.0 % 07/22/2025 4:11 PM [facility] LYMPHOCYTES 27.4 18.0 - 42.0 % 07/22/2025 4:11 PM [facility] MONOCYTES 6.2 4.0 - 12.0 % 07/22/2025 4:11 PM [facility] EOSINOPHILS 2.1 0.0 - 5.0 % 07/22/2025 4:11 PM [facility] BASOPHILS 0.6 0.0 - 1.0 % 07/22/2025 4:11 PM [facility] IMMATURE GRANULOCYTE 0.4 0.0 - 0.4 % 07/22/2025 4:11 PM [facility] ABSOLUTE NEUTROPHILS 4.49 1.60 - 7.70 10(3)/[facility] 07/22/2025 4:11 PM [facility] ABSOLUTE LYMPHOCYTES 1.94 1.30 - 3.20 10(3)/[facility] 07/22/2025 4:11 PM [facility] ABSOLUTE MONOCYTES 0.44 0.20 - 1.00 10(3)/[facility] 07/22/2025 4:11 PM [facility] ABSOLUTE EOSINOPHIL 0.15 0.00 - 0.40 10(3)/[facility] 07/22/2025 4:11 PM [facility] ABSOLUTE BASOPHILS 0.04 0.00 - 0.10 10(3)/[facility] 07/22/2025 4:11 PM [facility] ABSOLUTE IMMATURE GRANULOCYTE 0.03 0.00 - 0.03 10 (3) mcL. 07/22/2025 4:11 PM [facility] NRBC PER 100 WBC 0 07/22/20 25 4:11 PM [facility] Blood Venipuncture / Unknown 07/22/2025 2:37 PM SALES EFFECTIVENESS MANAGER 07/22/2025 4:11 PM SALES EFFECTIVENESS MANAGER us Pepper Reyes PAC HEMATOLOGY ORDERABLES Fin al Result [facility] [address] [place] [address] * VITAMIN B12 (07/22/2025 2:37 PM SALES EFFECTIVENESS MANAGER) VITAMIN B12 272 213 - 816 pg/mL 07/22/2025 8:44 PM SALES EFFECTIVENESS MANAGER [facility] Blood Venipuncture / Unknown 07/22/2025 2:37 PM SALES EFFECTIVENESS MANAGER 07/22/2025 8:06 PM SALES EFFECTIVENESS MANAGER [facility] PAC CHEMISTRY ORDERABLES Mayela l Result [facility] [address] [place] [address] * FERRITIN (07/22/2025 2:37 PM SALES EFFECTIVENESS MANAGER) FERRITIN 14 5 - 204 ng/mL 07/22/2025 8:38 PM SALES EFFECTIVENESS MANAGER [facility] Blood Venipuncture / Unknown 07/22/2025 2:37 PM SALES EFFECTIVENESS MANAGER 07/22/2025 8:06 PM SALES EFFECTIVENESS MANAGER [facility] PAC CHEMISTRY ORDERABLES Mayela l Result Performing Organization Address City/[facility] Co de Phone Number [facility] [address] [place] [address] from Last 3 Months Additional Health Concerns Infection Onset Date Last Indicated MRSA 03/23/2023 03/23/2023 Insurance [employer] Care Teams Energy Conservation Representative Relationship Specialty Start Date End Date Bianka Oneill PAC [address] [place] [address] PCP - General Physician Business Coordinator 08/18/22 Suresh Gleason MD #[address] [phone] Consulting Physician General Surgery 03/11/24 Margaux Allison APRN, FIBREGLASS LAY UP WORKER [address] [place] [address] Nurse Practitioner Advanced Practice Nurse 11/07/24
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
--- OUTSIDE RECORDS SUMMARY | 2025-09-04 18:18 | XMS_ITS | Encounter Summary ---
Author Organization [facility] Address [address] [place] [address] Phone Care Team Providers Care Microchip Specialist Name Role Phone Bianka Oneill Primary Care Provider + Suresh Gleason MD Unavailable Margaux Allison APRN, DERRICK WORKER WELL SERVICE Unavailable Encounter Details Date Type Department Care Team (Latest Contact Info) Description 07/24/2025 Results Follow-Up [facility] Oncology Services [address] [place] [address] Pepper Reyes, PAC [address] [place], [place] [phone] FERRITIN, IRON,TRANSFERN,CALC.T IBC,%SAT, VITAMIN B12, CBC WITH [...] 12/09/2025 2:40 PM CDT Office Visit [facility] Medical [facility] - Family [facility] [address] [place] [address] Bianka Oneill, PAC [address] [place] [address] 01/26/2026 2:40 PM CDT Office Visit [facility] Oncology Services [address] [place] [address] Pepper Reyes, PAC [address] [place] [address] Discharge Disposition: Discharged to home or Selfcare documented as of this encounter Goals Goal Patient Goal Type Associated Problems Recent Progress Patient-Stated? Author just want to feel normal Behavioral Health On track(2023 4:08 PM STONE TRIMMER) Yes Che Dickerson, DATA ANALYTICS CHIEF SCIENTIST Note: Goal/Objective: Decrease anxious and depressive symptoms. Anticipated Time Frame for Goal Completion: 6 months Goal Reviewed with: patient Readiness to change: Ready to change Department associated with goal: [facility] Steps to achieve [...] documented as of this encounter Care Teams Microchip Specialist Relationship Specialty Start Date End Date Bianka Oneill PAC [address] [place] [address] PCP - General Physician Completion Engineer 08/18/22 Suresh Gleason MD #[address] [phone] Consulting Physician General Surgery 03/11/24 Margaux Allison APRN, DERRICK WORKER WELL SERVICE [address] [place] [address] Nurse Practitioner Advanced Practice Nurse 11/07/24 documented as of this encounter
--- OUTSIDE RECORDS SUMMARY | 2025-09-04 18:18 | XMS_ITS | Encounter Summary ---
Author Organization [facility] Address [address] [place] [address] Phone Care Team Providers Care Hospital Education Coordinator Name Role Phone Bianka Oneill Primary Care Provider + Suresh Gleason MD Unavailable [phone] Margaux Allison APRN, PRODUCT APPLICATIONS ENGINEER Unavailable Reason for Visit * Reason Onset Date Comments Results 03/10/2025 Encounter Details Date Type Department Care Team (Late st Contact Info) Description 03/10/2025 Telephone [facility] [address] [place] [phone] Bianka Oneill, PAC [address] [place] [address] Results Social History Tobacco Use Types Packs/Day [...] review, images have not be read by [facility] radiology. golf club head inspector and adjuster contacted [facility] radiology and spoke with Dixie. Dixie states she will logan imaging to be read JAME. Recommendation: Routing to provider to notify. documented in this encounter Plan of Treatment Upcoming Encounters Date Type Department Care Team (Late st Contact Info) Description 12/09/2025 2:40 PM CDT Office Visit [facility] [address] [place] [address] Bianka Oneill, PAC [address] [place] [address] 01/26/2026 2:40 PM CDT [facility] [address] [place] [address] Pepper Reyes, PAC [address] [place] [address] Discharge Disposition: Discharged to home or Selfcare documented as of this encounter Goals Goal Patient Goal Type Associated Problems Recent Progress Patient-Stated? Author just want to feel normal Behavioral Health On track(2023 4:08 PM EXTRUSION PRESS OPERATOR) Yes Che Dickerson LCSW Note: Goal/Objective: Decrease anxious and depressive symptoms. Anticipated Time Frame for Goal Completion: 6 months Goal Reviewed with: patient Readiness to change: Ready to change [facility] associated with [facility] Steps to achieve [...] Depression Total Score: 0 10/04/19 10:37 AM EXTRUSION PRESS OPERATOR documented as of this encounter Care Teams Hospital Education Coordinator Relationship Specialty Start Date End Date Bianka Oneill PAC [address] [place] [address] PCP - General Physician Foreman Shipping Department 08/18/22 Suresh Gleason MD #[address] [address] Consulting Physician General Surgery 03/11/24 Margaux Allison APRN, PRODUCT APPLICATIONS ENGINEER [address] [place] [address] Nurse Practitioner Advanced Practice Nurse 11/07/24 documented as of this encounter
--- OUTSIDE RECORDS SUMMARY | 2025-09-04 18:18 | XMS_ITS | Encounter Summary ---
Author Organization [facility] Address [address] [place] [address] Phone Care Team Providers Care Bench Examiner Name Role Phone Bianka Oneill Primary Care Provider + Suresh Gleason MD Unavailable [phone] Margaux Allison APRN, REPAIRER SHOE STICKS Unavailable Reason for Visit * Reason Comments Medication Refill Encounter Details Date Type Department Care Team (Late st Contact Info) Description 10/29/2022 Refill [facility] - Family Medicine [facility] [address] [place] [address] Bianka Oneill PAC [address] [place] [address] Medication Refill Social History Tobacco Use Types [...] Coronavirus/COVID-19? No / Unsure 10/29/2022 10:54 AM PERFORMANCE ARCHITECT documented as of this encounter Functional Status * Question Answer Date of Assessment Author Best Eye Response 4-->(E4) spontaneous 3 10:54 AM Allyson Mendez RN Best Verbal Response 5-->(V5) oriented 3 10:54 AM Allyson Mendez RN Best Motor Response 6-->(M6) obeys commands 10/19 10:54 AM Allyson Mendez RN Concepcion Coma Scale Score 15 10/29/2022 10:54 AM [...] Date Author BP 151/91 10/29/2022 10:54 AM PERFORMANCE ARCHITECT Allyson Hardy RN Temp 97.5 10/29/2022 10:54 AM PERFORMANCE ARCHITECT Allyson Hardy RN Pulse 82 10/29/2022 1:03 PM PERFORMANCE ARCHITECT Osiris Fiore RN documented in this encounter Miscellaneous Notes * Telephone Encounter - Bianka Oneill PAC - 11/25/2022 12:27 PM PERFORMANCE ARCHITECT Duplicate ORMANCE ARCHITECT * Telephone Encounter - Liset Fisher RN [...] order placed on 09/30/2022 4:17 PM Order [id number]: celecoxib (CeleBREX) 200 MG Capsule (For orders [...] 10/29/2022 38.0 36.0 - 47.0 % Final ORMANCE ARCHITECT documented in this encounter Plan of Treatment Upcoming Encounters Date Type Department Care Team (Late st Contact Info) Description 12/09/2025 2:40 PM CDT Office Visit [facility] Medical [facility] Family [facility] [address] [place] [address] Bianka Oneill [facility] [address] [place] [address] 01/26/2026 2:40 PM CDT Office Visit [facility] [address] [place] [address] Pepper Reyes, PAC [address] [place] [address] Discharge Disposition: Discharged to home or Selfcare documented as of this encounter Visit Diagnoses Not on filedocumented in this encounter Additional Health Concerns Infection Onset Date Last Indicated Resolved Time MRSA 03/23/2023 03/23/2023 C. difficile Rule-Out 11/07/2024 12/09/20242024 12:16 AM PERFORMANCE ARCHITECT C. difficile Rule-Out 12/09/2024 12/09/20242024 4:53 PM CDT Assessment Noted Time PHQ-9 Depression Total Score: 6 08/18/20 8:00 AM PERFORMANCE ARCHITECT documented as of this encounter Care Teams Bench Examiner Relationship Specialty Start Date End Date Bianka Oneill PAC [address] [place] [address] PCP - General Physician Actuarial Assistant 08/18/22 Suresh Gleason MD [address] [id number] Consulting Physician General Surgery 03/11/24 Margaux Allison APRN, REPAIRER [employer]ICKS [address] [place] [address] Nurse Practitioner Advanced Practice Nurse 11/07/24 documented as of this encounter
[2025-09-04 18:20] VITALS: BP 116/70; PULSE 93; RESP 18; TEMP 36.7; O2SAT 96
== END 2025-09-04 18:22 | disposition home or self-care (01) ==
LOC: CHSED 18:15
PROVIDERS: Emergency Provider Emergency Medicine; PCP Physician Assistant
DX: S61.011A Laceration without foreign body of right thumb without damage to nail, initial encounter (principal); Z23 Encounter for immunization; W25.XXXA Contact with sharp glass, initial encounter
CPT/HCPCS: 12001; 90471; 90715; 99282; J2003